=== PATIENT | female | born 1955 | race Native Hawaiian/Other Pacific Islander ===

== ENCOUNTER → 2018-07-27 | Outpatient (CLI) | payer MEDICAID ==
--- NOTE | 2018-07-28 13:53 | MM ---
Reason for exam: screening (asymptomatic). Last mammogram was performed 2 years ago. History: Patient is postmenopausal. Family history of breast cancer in sister at age 39. Physical Findings: A clinical breast exam by your physician is recommended on an annual basis and results should be correlated with mammographic findings. MG Screening Mammo w CAD Bilateral CC and MLO view(s) were taken. Prior study comparison: July 15, 2016, mammogram, performed at [facility]. February 18, 2015, mammogram, performed at [facility]. There are scattered fibroglandular densities. No suspicious abnormality. ASSESSMENT: Negative, BI-RAD 1 RECOMMENDATION: Routine screening mammogram of both breasts in 1 year.
== END ==
LOC: RADMAMWWP 10:30
PROVIDERS: ATTEND Family Medicine
DX: Z12.31 Encounter for screening mammogram for malignant neoplasm of breast (principal)
CPT/HCPCS: 77067

== ENCOUNTER 2019-04-06 22:55 | Emergency (ER) | payer MEDICARE ==
[2019-04-06 23:06] VITALS: TEMP 98.6
--- NOTE | 2019-04-07 00:54 | ED ---
General Adult HPI - General Source: patient Mode of arrival: wheelchair Limitations: no limitations <America Carvajalhan L - Last Filed: 04/07/19 03:47> <Willa Gomez P - Last Filed: 04/07/19 22:15> - General Chief complaint: Extremity Problem,Nontraumatic Stated complaint: Rt leg pain/swelling - History of Present Illness Initial comments: 64-year-old female presenting for multiple complaints. Patient states for years she has had neck pain on and off. She states that about 2 weeks ago she began experiencing sharp left-sided neck pain that occurred with movement of the neck. She states she does not have a headache fever chills night sweats she's not parents nausea vomiting or dizziness. She denies any chest pain or shortness of breath. She states that he was only incited by movement of the neck. Patient denied any radiation down the arms she denied any paresthesia. The extremities or loss of sensation. Patient denies any weakness of the upper or lower extremities. She states that she received 1 cortisone shot by her primary care bite her for this complaint. She states she been taking ibuprofen [id number] for the pain management which doesn't seem to be working. Patient states about a week prior to the onset of neck pain she has been experiencing knee pain she states that she has had chronic knee pain and a previous total knee arthroplasty of the right knee. She states that for the past 3 weeks she has had right knee pain that increases with walking. She states that the most pain that she takes. Suspect complete extension. She states there is pain in the posterior aspect of the knee and she has noticed the knee has been swollen. She denies any redness or warmth to palpation of the joint. She denies any fever or chills or flulike symptoms. Patient states she is able to flex and extend without any significant difficulty with full extension. The most pain. Patient denies any weakness paresthesias numbness tingling of lower extremity. She states it does radiate towards her ankle. Describing this pain as a very sharp sensation. Patient denies history of DVT or pulmonary embolism. Patient states she is a diabetic. Patient denies any history of cancer patient denies any other associated symptoms. Upon arrival patient appears well signs of acute distress she presents emergency department this evening because she was unable to take the persistent pain, denies increase this evening. (Francia Carvajal) - Related Data Home Medications Medication Instructions Recorded Confirmed Citalopram Hydrobromide 40 mg PO 04/06/19 [Citalopram HBr] Lisinopril-Hctz 10-12.5 mg 1 tab PO DAILY 04/06/19 04/06/19 [Zestoretic 10-12.5] Methocarbamol [Robaxin] 04/06/19 Pravastatin Sodium [Pravachol] 10 mg PO DAILY 04/06/19 04/06/19 diphenhydrAMINE [Benadryl] 25 mg PO HS PRN 04/06/19 04/06/19 metFORMIN HCL [Glucophage] 500 mg PO BID 04/06/19 04/06/19 Previous Rx's Medication Instructions Recorded Acetaminophen with Codeine 1 tab PO Q6H PRN 3 Days #12 tab 04/07/19 [Tylenol w/codeine #3] Allergies Allergy/AdvReac Type Severity Reaction Status Date / Time latex Allergy Rash/Hives Verified 04/06/19 23:05 Review of Systems ROS Other: All systems not noted in ROS Statement are negative. <Francia Carvajal - Last Filed: 04/07/19 03:47> ROS Other: All systems not noted in ROS Statement are negative. <Willa Gomez - Last Filed: 04/07/19 22:15> ROS Statement: Those systems with pertinent positive or pertinent negative responses have been documented in the HPI. Past Medical History Past Medical History: Diabetes Mellitus, Hyperlipidemia, Hypertension History of Any Multi-Drug Resistant Organisms: None Reported Past Surgical History: No Surgical Hx Reported Past Psychological History: No Psychological Hx Reported Smoking Status: Former smoker Past Alcohol Use History: None Reported Past Drug Use History: None Reported <Francia Carvajal - Last Filed: 04/07/19 03:47> General Exam Limitations: no limitations <Francia Carvajal - Last Filed: 04/07/19 03:47> - General Exam Comments Initial Comments: General: The patient is awake and alert, in no distress, and does not appear acutely ill. Eye: +3 mm pupils are equal, round and reactive to light, extra-ocular movements are intact. No nystagmus. There is normal conjunctiva bilaterally. No signs of icterus. Ears, nose, mouth and throat: There are moist mucous membranes and no oral lesions. Neck: The neck is supple, there is no tenderness or JVD. No midline tenderness palpation of the cervical spine. Positive Spurling's. Cardiovascular: There is a regular rate and rhythm. No murmur, rub or gallop is appreciated. Respiratory: Lungs are clear to auscultation, respirations are non-labored, breath sounds are equal. No wheezes, stridor, rales, or rhonchi. Gastrointestinal: Soft, non-distended, non-tender abdomen without masses or organomegaly noted. There is no rebound or guarding present. No CVA tenderness. Bowel sounds are unremarkable. Musculoskeletal: Upon inspection of the knees bilaterally or slight soft tissue swelling of the right knee in comparison the left. No warmth to palpation no erythema. Patient is able to flex and extend at the knees bilaterally. Patient admits to discomfort of the right knee with full extension. However extensor mechanism intact. Normal ROM of the cervical spine, ankles b/l. Strength 5/5 of the UE and LE b/l. Sensation intact of the UE and LE. Radial and DP pulses equal bilaterally 2+. Neurological: A&O x 3. CN II-XII intact, There are no obvious motor or sensory deficits. Coordination appears grossly intact. Speech is normal. Skin: Skin is warm and dry and no rashes or lesions are noted. No LE edema. (-) Homans. Psychiatric: Cooperative, appropriate mood & affect, normal judgment. (Francia Carvajal) Course Vital Signs 04/06/19 04/07/19 23:00 03:41 Temperature 98.6 F Pulse Rate 93 70 Respiratory 18 16 Rate Blood Pressure 122/75 138/80 O2 Sat by Pulse 96 Oximetry Medical Decision Making <Francia Carvajal - Last Filed: 04/07/19 03:47> <Willa Gomez - Last Filed: 04/07/19 22:15> - Medical Decision Making 64-year-old female presenting for multiple complaints. Patient has history of chronic neck pain and right knee pain. Patient states she has had the swelling for the past 3 weeks. Patient's pain increased with extension. Chapa cyst on ultrasound. No evidence of DVT. There is no warmth to palpation of the knee or erythema. I do not suspicion for septic joint. Chronic changes of degeneration noted. Cervical spine plain films revealed degenerative changes. Patient is positive Spurling's no weakness of the upper extremities or sensation deficits. At this time feel patient symptoms as far as the neck pain or radicular in nature. Patient denies any falls or trauma. Patient is provided Toradol emergency department. Patient has upcoming appointment scheduled with Dr. Caro for the right knee pain. Patient was provided prescription for Tylenol #3 outpatient for pain management. Thus appropriate use as well as risks involved prior to administration. Patient is agreeable and prefers discharge this time.I discussed case with Dr. Gomez who is agreeable with plan and d/c. Return parameters were discussed at length with patient who verbalized understanding (Francia Carvajal) I was available for consultation in the emergency department. The history and physical exam were done by the midlevel provider. I was consulted for this patient's care. I reviewed the case with the midlevel provider and based on their presentation of the patient, I agree with the assessment, medical decision making and plan of care as documented. Chart was dictated using [employer] dictation software. Attempts were made to correct any dictation errors however some typographical errors may persist. (Willa Gomez) Disposition Is patient prescribed a controlled substance at d/c from ED?: Yes When asked, does pt state using other controlled substances?: No If prescribed controlled substance>3 days was MAPS reviewed?: Prescribed <3 Days If opioid is for acute pain is fill amount 7 days or less?: Yes If Rx opioid, was Start Talking consent form obtained?: Yes Time of Disposition: 03:25 <Francia Carvajal - Last Filed: 04/07/19 03:47> <Willa Gomez - Last Filed: 04/07/19 22:15> Clinical Impression: Arthritis of right knee, Bakers cyst, Cervical spine degeneration, Chronic neck pain Disposition: HOME SELF-CARE Condition: Good Instructions (If sedation given, give patient instructions): Bakers Cyst (ED), Cervical Disc Herniation (ED) Additional Instructions: Please use medication as discussed. Please follow-up with family doctor in the next 2 days, please follow-up with Dr Lizama. Please return to emergency room if the symptoms increase or worsen or for any other concerns. Prescriptions: Acetaminophen with Codeine [Tylenol w/codeine #3] 1 tab PO Q6H PRN 3 Days #12 tab PRN Reason: Severe Pain Referrals: Kat Fox MD [Primary Care Provider] - 1-2 days Deny Caro MD [STAFF PHYSICIAN] - 1-2 days Shasta Valera DO [Doctor of Osteopathic Medicine] - 1-2 days
--- NOTE | 2019-04-07 02:13 | XR ---
EXAM: XR Right Knee, 3 views CLINICAL HISTORY: ITS.REASON XR Reason: Pain TECHNIQUE: Three views of the right knee. COMPARISON: None. FINDINGS: Bones/joints: Suprapatellar joint effusion. Mild tricompartmental arthrosis of the knee with chondrocalcinosis in the lateral tibiofemoral compartment. No acute fracture. No dislocation. Soft tissues: Unremarkable. Vasculature: Vascular calcifications are seen. IMPRESSION: 1. No acute osseous abnormality. 2. Chronic findings as described.
--- NOTE | 2019-04-07 02:17 | XR ---
EXAM: XR Cervical Spine, 4 or 5 Views CLINICAL HISTORY: ITS.REASON XR Reason: Pain TECHNIQUE: Frontal, lateral and oblique views of the cervical spine. COMPARISON: None. FINDINGS: Vertebrae: Unremarkable. No acute fracture. Normal alignment. Disc spaces: Multilevel degenerative change of the cervical spine with mild or moderate osseous foraminal narrowing at C5-C6 and C6-C7. Soft tissues: Unremarkable. IMPRESSION: 1. No acute osseous abnormality identified. However, lateral positioning is suboptimal. If there is clinical concern for cervical spine fracture, evaluation with CT is recommended. 2. Multilevel degenerative change of the cervical spine with mild or moderate osseous foraminal narrowing at C5-C6 and C6-C7.
--- NOTE | 2019-04-07 02:51 | US ---
EXAM: US Duplex Right Lower Extremity Veins CLINICAL HISTORY: ITS.REASON US Reason: posterior knee pain /swelling TECHNIQUE: Real-time duplex ultrasound scan of the right lower extremity veins integrating B-mode two-dimensional vascular structure, Doppler spectral analysis, color flow Doppler imaging and compression. COMPARISON: None. FINDINGS: Deep veins: Unremarkable. No DVT in the visualized common femoral, femoral, proximal deep femoral or popliteal veins. The veins demonstrate normal color flow, are normally compressible, with normal phasic flow and/or augmentation response. Superficial veins: Unremarkable. No thrombus in the visualized great saphenous vein. Soft tissues: Right popliteal fossa 1.3 x 3.2 x 0.5 cm collection is favored to represent a Chapa's cyst. IMPRESSION: 1. No evidence of deep vein thrombosis in the right lower extremity. 2. Right popliteal fossa 1.3 x 3.2 x 0.5 cm collection is favored to represent a Chapa's cyst.
[2019-04-07] MEDS ORDERED: KETOROLAC 30 MG/ML 1 ML VIAL IM STA (03:21)
[2019-04-07] MEDS ORDERED: ACET/COD 300 MG/30 MG STARTER PACK 6 TAB BTL PO STA (03:21)
[2019-04-07 03:46] VITALS: BP 138/80; PULSE 70; RESP 16
== END 2019-04-07 03:41 | disposition home or self-care (01) ==
LOC: EC 22:55
DX: M17.11 Unilateral primary osteoarthritis, right knee (principal); M71.21 Synovial cyst of popliteal space [Baker], right knee; G31.89 Other specified degenerative diseases of nervous system; G89.29 Other chronic pain; M47.892 Other spondylosis, cervical region; E11.9 Type 2 diabetes mellitus without complications; E78.5 Hyperlipidemia, unspecified; I10 Essential (primary) hypertension; Z87.891 Personal history of nicotine dependence; Z79.84 Long term (current) use of oral hypoglycemic drugs; Z79.899 Other long term (current) drug therapy; Z91.040 Latex allergy status
CPT/HCPCS: 72050; 73562; 93971; 99284; 96372; J1885

== ENCOUNTER 2019-04-09 12:00 | Inpatient (IN) | payer MEDICARE ==
[2019-04-09] MEDS ORDERED: ACETAMINOPHEN TAB 500 MG TAB PO STA (13:00)
[2019-04-09] MEDS ORDERED: KETOROLAC 30 MG/ML 1 ML VIAL IVP STA (13:03)
--- NOTE | 2019-04-09 14:06 | ED ---
General Adult HPI - General Chief complaint: Extremity Problem,Nontraumatic Stated complaint: recheck - rt leg pain Time Seen by Provider: 04/09/19 12:44 Source: patient Mode of arrival: wheelchair Limitations: no limitations - History of Present Illness Initial comments: 64-year-old female patient presents to the emergency department today for evaluation of pain to the right knee and right ankle. Patient states she is also having pain to the neck and the left elbow. Patient states that she was seen and evaluated for this here a few days ago, had ultrasound and x-rays and was discharged with negative workup. Patient states that she has been feeling worse and is no longer able to bear weight due to the pain. States the swelling in the right knee and ankle have increased. Patient denies any injury to these locations. Patient states she has been having sweats and chills, denies any known fever. States that the history of diabetes. Denies any history of gout or septic arthritis. Patient denies any recent rash, shortness breath, chest pa in, abdominal pain, nausea, vomiting, diarrhea, constipation, back pain, numbness, tingling, dizziness, weakness, hematuria, dysuria, urinary urgency, urinary frequency, headache, visual changes, or any other complaints. - Related Data Home Medications Medication Instructions Recorded Confirmed Citalopram Hydrobromide 40 mg PO DAILY 04/06/19 04/09/19 [Citalopram HBr] Lisinopril-Hctz 10-12.5 mg 1 tab PO DAILY 04/06/19 04/09/19 [Zestoretic 10-12.5] Methocarbamol [Robaxin] 500 mg PO DAILY PRN 04/06/19 04/09/19 Pravastatin Sodium [Pravachol] 10 mg PO DAILY 04/06/19 04/09/19 diphenhydrAMINE [Benadryl] 25 mg PO HS PRN 04/06/19 04/09/19 metFORMIN HCL [Glucophage] 500 mg PO BID 04/06/19 04/09/19 Ibuprofen [Motrin Ib] 400 mg PO Q6H PRN 04/09/19 04/09/19 Previous Rx's Medication Instructions Recorded Acetaminophen with Codeine 1 tab PO Q6H PRN 3 Days #12 tab 04/07/19 [Tylenol w/codeine #3] Allergies Allergy/AdvReac Type Severity Reaction Status Date / Time latex Allergy Rash/Hives Verified 04/09/19 12:57 Review of Systems ROS Statement: Those systems with pertinent positive or pertinent negative responses have been documented in the HPI. ROS Other: All systems not noted in ROS Statement are negative. Past Medical History Past Medical History: Diabetes Mellitus, Hyperlipidemia, Hypertension History of Any Multi-Drug Resistant Organisms: None Reported Past Surgical History: No Surgical Hx Reported Past Psychological History: No Psychological Hx Reported Smoking Status: Former smoker Past Alcohol Use History: None Reported Past Drug Use History: None Reported General Exam Limitations: no limitations General appearance: alert, in no apparent distress, other (Physical well- developed, well-nourished elderly female patient in no acute distress. Vital signs upon presentation are temperature 100.2F oral, pulse 111, respirations 1 8, blood pressure 127/72, pulse ox 97% on room air.) Eye exam: Present: normal appearance, PERRL, EOMI. Absent: scleral icterus, conjunctival injection, periorbital swelling ENT exam: Present: normal exam, normal oropharynx, mucous membranes moist Respiratory exam: Present: normal lung sounds bilaterally. Absent: respiratory distress, wheezes, rales, rhonchi, stridor Cardiovascular Exam: Present: regular rate, normal rhythm, normal heart sounds. Absent: systolic murmur, diastolic murmur, rubs, gallop, clicks GI/Abdominal exam: Present: soft, normal bowel sounds. Absent: distended, tenderness, guarding, rebound, rigid Extremities exam: Present: full ROM, normal capillary refill, other (There is swelling noted on the right knee and the right ankle. No erythema. Joints are warm to touch. Skin is otherwise pink, warm, dry. Cap refills less than 3 seconds. Pedal and posttibial pulses are 2+ and equal bilaterally.). Absent: normal inspection, tenderness, pedal edema, joint swelling, calf tenderness Neurological exam: Present: alert, oriented X3, CN II-XII intact Psychiatric exam: Present: normal affect, normal mood Skin exam: Present: warm, dry, intact, normal color. Absent: rash Course Vital Signs 04/09/19 04/09/19 04/09/19 12:21 13:01 15:00 Temperature 99.9 F H 100.2 F H 99.3 F Pulse Rate 111 H 82 Respiratory 18 18 Rate Blood Pressure 127/72 121/70 O2 Sat by Pulse 97 99 Oximetry 04/09/19 16:00 Temperature Pulse Rate 86 Respiratory 18 Rate Blood Pressure 131/56 O2 Sat by Pulse 96 Oximetry Medical Decision Making - Medical Decision Making 64-year-old female patient presented to the emergency department today for evaluation of migrating arthritis. Patient did have evaluation for right knee and right ankle pain a few days ago, had negative ultrasound and x-rays. Upon arrival she did have low-grade fever. Physical examination did reveal joint swelling noted to the right knee and right ankle with no erythema. Labs reviewed and did reveal a normal white blood cell count with an abnormal peripheral smear. I did speak to the pathologist in the lab who was concerned for acute leukemia particularly CMML. He recommends bone marrow biopsy and oncology consult. Patient will be admitted to the hospital for further evaluation. She is admitted to Dr. Galeana. - Lab Data Result diagrams: 04/09/19 14:05 04/09/19 14:05 Lab Results 04/09/19 04/09/19 04/09/19 Range/Units 14:05 14:05 14:05 WBC 7.7 (3.8-10.6) k/uL RBC 3.33 L (3.80-5.40) m/uL Hgb 10.4 L (11.4-16.0) gm/dL Hct 31.2 L (34.0-46.0) % MCV 93.7 (80.0-100.0) fL MCH 31.2 (25.0-35.0) pg MCHC 33.3 (31.0-37.0) g/dL RDW 15.7 H (11.5-15.5) % Plt Count 161 (150-450) k/uL Neutrophils % (Manual) 20 % Band Neutrophils % 1 % Lymphocytes % (Manual) 26 % Monocytes % (Manual) 47 % Metamyelocytes % 1 % Myelocytes % 1 % Blast Cells % 7 H* % Neutrophils # (Manual) 1.60 (1.3-7.7) k/uL Lymphocytes # (Manual) 2.00 (1.0-4.8) k/uL Monocytes # (Manual) 3.62 H (0-1.0) k/uL Metamyelocytes # (Man) 0.08 H (0) k/uL Myelocytes # (Manual) 0.08 H (0) k/uL Blast Cells # (Man) 0.54 H (0) k/uL Nucleated RBCs 1 H (0-0) /100 WBC Manual Slide Review Performed Large Platelets Present Poikilocytosis (manual Present Rouleaux Present PT (9.0-12.0) sec INR (<1.2) APTT (22.0-30.0) sec Sodium 138 (137-145) mmol/L Potassium 4.0 (3.5-5.1) mmol/L Chloride 101 (98-107) mmol/L Carbon Dioxide 24 (22-30) mmol/L Anion Gap 13 mmol/L BUN 16 (7-17) mg/dL Creatinine 0.76 (0.52-1.04) mg/dL Est GFR (CKD-EPI)AfAm >90 (>60 ml/min/1.73 sqM) Est GFR (CKD-EPI)NonAf 83 (>60 ml/min/1.73 sqM) Glucose 142 H (74-99) mg/dL Plasma Lactic Acid Myke 0.9 (0.7-2.0) mmol/L Calcium 8.6 (8.4-10.2) mg/dL Total Bilirubin 0.5 (0.2-1.3) mg/dL AST 16 (14-36) U/L ALT 8 L (9-52) U/L Alkaline Phosphatase 108 (38-126) U/L Total Protein 8.3 H (6.3-8.2) g/dL Albumin 4.0 (3.5-5.0) g/dL 04/09/19 Range/Units 14:05 WBC (3.8-10.6) k/uL RBC (3.80-5.40) m/uL Hgb (11.4-16.0) gm/dL Hct (34.0-46.0) % MCV (80.0-100.0) fL MCH (25.0-35.0) pg MCHC (31.0-37.0) g/dL RDW (11.5-15.5) % Plt Count (150-450) k/uL Neutrophils % (Manual) % Band Neutrophils % % Lymphocytes % (Manual) % Monocytes % (Manual) % Metamyelocytes % % Myelocytes % % Blast Cells % % Neutrophils # (Manual) (1.3-7.7) k/uL Lymphocytes # (Manual) (1.0-4.8) k/uL Monocytes # (Manual) (0-1.0) k/uL Metamyelocytes # (Man) (0) k/uL Myelocytes # (Manual) (0) k/uL Blast Cells # (Man) (0) k/uL Nucleated RBCs (0-0) /100 WBC Manual Slide Review Large Platelets Poikilocytosis (manual Rouleaux PT 10.9 (9.0-12.0) sec INR 1.0 (<1.2) APTT 25.8 (22.0-30.0) sec Sodium (137-145) mmol/L Potassium (3.5-5.1) mmol/L Chloride (98-107) mmol/L Carbon Dioxide (22-30) mmol/L Anion Gap mmol/L BUN (7-17) mg/dL Creatinine (0.52-1.04) mg/dL Est GFR (CKD-EPI)AfAm (>60 ml/min/1.73 sqM) Est GFR (CKD-EPI)NonAf (>60 ml/min/1.73 sqM) Glucose (74-99) mg/dL Plasma Lactic Acid Myke (0.7-2.0) mmol/L Calcium (8.4-10.2) mg/dL Total Bilirubin (0.2-1.3) mg/dL AST (14-36) U/L ALT (9-52) U/L Alkaline Phosphatase (38-126) U/L Total Protein (6.3-8.2) g/dL Albumin (3.5-5.0) g/dL Disposition Clinical Impression: Abnormal CBC, Polyarthralgia, Fever Disposition: ADMITTED IP TO THIS [facility] Condition: Serious Referrals: Kat Fox MD [Primary Care Provider] - 1-2 days Decision to Admit Reason: Admit from [facility] Decision Date: 04/09/19 Decision Time: 16:34
[2019-04-09 14:29] LABS: ALT 8 U/L (9-52); AST 16 U/L (14-36); African American GFR (CKD) >90 (>60 ml/min/1.73 sqM); Alkaline Phosphatase 108 U/L (38-126); Anion Gap 13 mmol/L; Blood Urea Nitrogen 16 mg/dL (7-17); Calcium 8.6 mg/dL (8.4-10.2); Carbon Dioxide 24 mmol/L (22-30); Chloride 101 mmol/L (98-107); Glucose 142 mg/dL (74-99); Sodium 138 mmol/L (137-145); Total Bilirubin 0.5 mg/dL (0.2-1.3); Total Protein 8.3 g/dL (6.3-8.2)
[2019-04-09 14:33] LABS: Partial Thromboplastin Time 25.8 sec (22.0-30.0); Prothrombin Time 10.9 sec (9.0-12.0)
[2019-04-09 14:44] LABS: HCT 31.2 % (34.0-46.0); HGB 10.4 gm/dL (11.4-16.0); MCH 31.2 pg (25.0-35.0); MCHC 33.3 g/dL (31.0-37.0); MCV 93.7 fL (80.0-100.0); Mean Platelet Volume 13.4; Platelet Count 161 k/uL (150-450); RBC 3.33 m/uL (3.80-5.40); RDW 15.7 % (11.5-15.5)
[2019-04-09 15:06] LABS: Band Neutrophils % 1 %; Metamyelocytes # (M) 0.08 k/uL (0); Metamyelocytes % 1 %; Myelocytes # (M) 0.08 k/uL (0); Myelocytes % 1 %; Neutrophils % (M) 20 %; Nucleated Red Blood Cells 1 /100 WBC (0-0); Total Cells Counted 200
[2019-04-09 15:07] LABS: Blast Cells # (M) 0.54 k/uL (0); Monocytes # (M) 3.62 k/uL (0-1.0); WBC 7.7 k/uL (3.8-10.6)
[2019-04-09 15:08] LABS: Large Platelets Present; Rouleaux Present
[2019-04-09 15:09] LABS: Poikilocytosis (M) Present
[2019-04-09] MEDS: SODIUM CHLORIDE 0.9% 500 ML 500 ML IV SCH ×2 (15:20→16:00)
[2019-04-09] MEDS ORDERED: HYDROmorphone 0.5 MG/0.5 ML SYRINGE IVP STA (16:24)
[2019-04-09 16:26] LABS: Appearance,Urine Clear (Clear); Bilirubin,Urine Negative (Negative); Blood,Urine Negative (Negative); Color,Urine Yellow; Glucose,Urine (UA) Negative (Negative); Ketones,Urine Negative (Negative); Leukocyte Esterase,Urine Negative (Negative); Nitrite,Urine Negative (Negative); PH, Urine 5.5 (5.0-8.0); Protein,Urine Trace (Negative); Specific Gravity,Urine 1.025 (1.001-1.035)
[2019-04-09] MEDS ORDERED: NALOXONE 0.4 MG/ML 1 ML VIAL IV PRN (16:34)
[2019-04-09] MEDS: HYDROmorphone 0.5 MG/0.5 ML SYRINGE IVP PRN ×2 (19:22→22:33)
[2019-04-10] MEDS: HYDROmorphone 0.5 MG/0.5 ML SYRINGE IVP PRN ×7 (02:36→22:52)
[2019-04-10] MEDS: ACETAMINOPHEN TAB 325 MG TAB PO PRN ×2 (05:50→11:04)
[2019-04-10] MEDS ORDERED: diphenhydrAMINE 25 MG CAP PO PRN (08:24)
[2019-04-10] MEDS ORDERED: IBUPROFEN 400 MG TAB PO PRN (08:24)
--- NOTE | 2019-04-10 08:59 | XR ---
EXAMINATION TYPE: XR chest 2V DATE OF EXAM: 04/10/2019 COMPARISON: NONE TECHNIQUE: PA and lateral views submitted. HISTORY: Cough possible pneumonia FINDINGS: The lungs are clear and there is no pneumothorax, pleural effusion, or focal pneumonia. Hypertrophi c and degenerative changes spine. Atherosclerotic change aorta. Arthropathy of the shoulders. No over t failure. IMPRESSION: 1. No acute process.
[2019-04-10] MEDS: CITALOPRAM HYDROBROMIDE 20 MG TAB PO SCH (09:42)
[2019-04-10] MEDS: LISINOPRIL-HCTZ 10-12.5 MG 1 EACH TAB PO SCH (09:42)
[2019-04-10] MEDS: PRAVASTATIN SODIUM 20 MG TAB PO SCH (09:42)
[2019-04-10] MEDS: metFORMIN 500 MG TAB PO SCH ×2 (09:43→17:05)
--- NOTE | 2019-04-10 10:08 | P.HPIM ---
History of Present Illness H&P Date: 04/10/19 This is a 64-year-old female patient of Dr. Fox. Patient presented for evaluation of pain to right knee and right ankle along with pain to neck. Patient reports that this has been occurring over the past week. Patient reports that started with her knee in which she reported increased swelling and then moved Dr. ankle. Patient reports that she received outpatient injections. Pain did subside but then started in her neck in which she also received injections to her neck with improvement. But now the pain has returned back to her knee and she is unable to ambulate. Patient has past medical history of diabetes mellitus, hyperlipidemia and hypertension. Patient's temp also elevated on admit 100.2. CBC completed revealing critically high blast cells 7. Hematology consult has been placed. Chest x-ray completed showing no acute process. This time patient is resting comfortably in bed. Patient denies any fevers at home. Patient denies any chest pain shortness breath. Patient denies any nausea vomiting or diarrhea. Patient denies any urinary burning or frequency. Review of Systems please refer to HPI otherwise unremarkable Past Medical History Past Medical History: Diabetes Mellitus, Hyperlipidemia, Hypertension History of Any Multi-Drug Resistant Organisms: None Reported Past Surgical History: No Surgical Hx Reported Past Psychological History: No Psychological Hx Reported Smoking Status: Never smoker Past Alcohol Use History: None Reported Past Drug Use History: None Reported Medications and Allergies Home Medications Medication Instructions Recorded Confirmed Type Citalopram Hydrobromide 40 mg PO DAILY 04/06/19 04/09/19 History [Citalopram HBr] Lisinopril-Hctz 10-12.5 mg 1 tab PO DAILY 04/06/19 04/09/19 History [Zestoretic 10-12.5] Methocarbamol [Robaxin] 500 mg PO DAILY PRN 04/06/19 04/09/19 History Pravastatin Sodium [Pravachol] 10 mg PO DAILY 04/06/19 04/09/19 History diphenhydrAMINE [Benadryl] 25 mg PO HS PRN 04/06/19 04/09/19 History metFORMIN HCL [Glucophage] 500 mg PO BID 04/06/19 04/09/19 History Acetaminophen with Codeine 1 tab PO Q6H PRN 3 Days #12 tab 04/07/19 04/09/19 Rx [Tylenol w/codeine #3] Ibuprofen [Motrin Ib] 400 mg PO Q6H PRN 04/09/19 04/09/19 History Allergies Allergy/AdvReac Type Severity Reaction Status Date / Time latex Allergy Rash/Hives Verified 04/09/19 12:57 Physical Exam Vitals: Vital Signs Temp Pulse Pulse Resp BP BP BP 04/10/19 06:43 98.8 F 58 L 16 122/67 04/09/19 21:03 98.0 F 84 14 115/71 04/09/19 18:12 98.2 F 88 16 104/70 04/09/19 17:40 98.7 F 86 18 120/67 04/09/19 16:00 86 18 131/56 04/09/19 15:00 99.3 F 82 18 121/70 04/09/19 13:01 100.2 F H 04/09/19 12:21 99.9 F H 111 H 18 127/72 Pulse Ox 04/10/19 06:43 95 04/09/19 21:03 97 04/09/19 18:12 97 04/09/19 17:40 96 04/09/19 16:00 96 04/09/19 15:00 99 04/09/19 13:01 04/09/19 12:21 97 Intake and Output 04/09/19 04/10/19 04/10/19 22:59 06:59 14:59 Other: # Voids 1 1 Head normocephalic Neck supple Lungs clear to auscultation bilaterally no wheezing or crackles Heart regular rate and rhythm S1-S2, no rub or gallop Abdomen is soft nontender nondistended positive bowel sounds no hepatosplenomegaly Extremities minimal swelling noted to right knee Neuro alert and orientated to 3 Results CBC & Chem 7: 04/09/19 14:05 04/09/19 14:05 Labs: Abnormal Lab Results - Last 24 Hours (Table) 04/09/19 04/09/19 04/09/19 Range/Units 14:05 14:05 16:14 RBC 3.33 L (3.80-5.40) m/uL Hgb 10.4 L (11.4-16.0) gm/dL Hct 31.2 L (34.0-46.0) % RDW 15.7 H (11.5-15.5) % Blast Cells % 7 H* % Monocytes # (Manual) 3.62 H (0-1.0) k/uL Metamyelocytes # (Man) 0.08 H (0) k/uL Myelocytes # (Manual) 0.08 H (0) k/uL Blast Cells # (Man) 0.54 H (0) k/uL Nucleated RBCs 1 H (0-0) /100 WBC Pathologist Review See comment A Glucose 142 H (74-99) mg/dL ALT 8 L (9-52) U/L Total Protein 8.3 H (6.3-8.2) g/dL Urine Protein Trace H (Negative) Microbiology - Last 24 Hours (Table) 04/09/19 16:14 Urine Culture - Preliminary Urine,Voided Thrombosis Risk Factor Assmnt - Choose All That Apply Any of the Below Risk Factors Present?: Yes Each Factor Represents 1 point: Obesity (BMI >25) Other Risk Factors: Yes Each Risk Factor Represents 2 Points: Age 61-74 years Thrombosis Risk Factor Assessment Total Risk Factor Score: 3 Thrombosis Risk Factor Assessment Level: Moderate Risk Assessment and Plan Assessment: 1. Polyarthralgia of the right knee, right ankle and neck with fever. X-ray of knee completed on 04/07/2019 showing no acute osseous abnormality chronic findings as described. Venous Doppler completed on 04/07/2029 showing no evidence for deep vein thrombosis in the right lower extremity. 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 Cervical spine x-ray completed showing no a cute osseous abnormality identified. However lateral positioning is suboptimal. Multilevel degenerative change of the cervical spine with mild to moderate osseous foraminal narrowing of C5 to C6 and C6 to C7. Chest x-ray completed showing no acute process. Blood and urine cultures ordered. 2. Abnormal CBC. Blast cells critically high at 7. Hematology has been consulted for further workup 3. History of diabetes mellitus. Home meds resumed 4. History of hyperlipidemia 5. History of essential hypertension DT prophylaxis heparin. GI prophylaxis Protonix Time with Patient: Greater than 30 (I performed an examination of the patient and discussed their management with the Nurse Practitioner. I have reviewed the Nurse Practitioner's notes and agree with the documented findings and plan of care. Still for 20)
[2019-04-10 12:01] LABS: ALT 10 U/L (9-52); AST 16 U/L (14-36); African American GFR (CKD) >90 (>60 ml/min/1.73 sqM); Alkaline Phosphatase 99 U/L (38-126); Anion Gap 10 mmol/L; Blood Urea Nitrogen 14 mg/dL (7-17); Calcium 8.8 mg/dL (8.4-10.2); Carbon Dioxide 29 mmol/L (22-30); Chloride 100 mmol/L (98-107); Glucose 118 mg/dL (74-99); Potassium 4.4 mmol/L (3.5-5.1); Sodium 139 mmol/L (137-145); Total Bilirubin 0.4 mg/dL (0.2-1.3); Total Protein 8.3 g/dL (6.3-8.2)
[2019-04-10 12:11] LABS: HCT 32.7 % (34.0-46.0); HGB 10.7 gm/dL (11.4-16.0); MCH 31.5 pg (25.0-35.0); MCHC 32.8 g/dL (31.0-37.0); MCV 96.1 fL (80.0-100.0); Platelet Count 137 k/uL (150-450); WBC 6.8 k/uL (3.8-10.6)
--- NOTE | 2019-04-10 13:03 | P.CONS ---
History of Present Illness - Reason for Consult Consult date: 04/10/19 blasts in peripheral smear Requesting physician: Katelyn Trevino - Chief Complaint right ankle, knee and neck pain - History of Present Illness Mrs. Hernandez is a very pleasant lady who we've been asked to see because on routine blood draw she was found to have blasts on her peripheral smear. What led to the workup was progressive pain and swelling in her right ankle, right knee, both shoulders and neck. This started about 2 weeks ago, she has been seen in the ER twice with some acute relief of symptoms but nothing permanent. Patient denies any personal history of cancer, she states that she was told that she has a "high white blood cell count", present for several years that she can remember, denies any further knowledge than this about it, her mother had breast cancer and rectal cancer, both treated, her mother at the age of 83, patient denies any fevers, sweats, chills, fluctuating weight, denies unintentional, significant weight loss, difficulty in swallowing, loss of appetite, changes in breathing, bowel or bladder habits, she has otherwise been in her normal state of health, active, taking care of 2 grandkids, until this pain decreased her mobility. Review of Systems 14 point review of systems is negative except as stated in HPI Past Medical History Past Medical History: Diabetes Mellitus, Hyperlipidemia, Hypertension History of Any Multi-Drug Resistant Organisms: None Reported Past Surgical History: No Surgical Hx Reported Past Psychological History: No Psychological Hx Reported Smoking Status: Former smoker Past Alcohol Use History: None Reported Past Drug Use History: None Reported - Past Family History Mother Family Medical History: Cancer (breast and rectal-did not from cancer) Medications and Allergies Home Medications Medication Instructions Recorded Confirmed Type Citalopram Hydrobromide 40 mg PO DAILY 04/06/19 04/09/19 History [Citalopram HBr] Lisinopril-Hctz 10-12.5 mg 1 tab PO DAILY 04/06/19 04/09/19 History [Zestoretic 10-12.5] Methocarbamol [Robaxin] 500 mg PO DAILY PRN 04/06/19 04/09/19 History Pravastatin Sodium [Pravachol] 10 mg PO DAILY 04/06/19 04/09/19 History diphenhydrAMINE [Benadryl] 25 mg PO HS PRN 04/06/19 04/09/19 History metFORMIN HCL [Glucophage] 500 mg PO BID 04/06/19 04/09/19 History Acetaminophen with Codeine 1 tab PO Q6H PRN 3 Days #12 tab 04/07/19 04/09/19 Rx [Tylenol w/codeine #3] Ibuprofen [Motrin Ib] 400 mg PO Q6H PRN 04/09/19 04/09/19 History Allergies Allergy/AdvReac Type Severity Reaction Status Date / Time latex Allergy Rash/Hives Verified 04/09/19 12:57 Physical Exam Vitals: Vital Signs Temp Pulse Pulse Resp BP BP BP 04/10/19 06:43 98.8 F 58 L 16 122/67 04/09/19 21:03 98.0 F 84 14 115/71 04/09/19 18:12 98.2 F 88 16 104/70 04/09/19 17:40 98.7 F 86 18 120/67 04/09/19 16:00 86 18 131/56 04/09/19 15:00 99.3 F 82 18 121/70 04/09/19 13:01 100.2 F H Pulse Ox 04/10/19 06:43 95 04/09/19 21:03 97 04/09/19 18:12 97 04/09/19 17:40 96 04/09/19 16:00 96 04/09/19 15:00 99 04/09/19 13:01 Intake and Output 04/09/19 04/10/19 04/10/19 22:59 06:59 14:59 Other: # Voids 1 1 - Constitutional General appearance: cooperative, no acute distress, obese - EENT Eyes: anicteric sclerae, EOMI, normal appearance ENT: hearing grossly normal, normal oropharynx - Neck Neck: no lymphadenopathy - Respiratory Respiratory: bilateral: CTA - Cardiovascular Rhythm: regular Heart sounds: normal: S1, S2 Abnormal Heart Sounds: no systolic murmur, no diastolic murmur, no rub, no S3 Gallop, no S4 Gallop, no click, no other leg Peripheral Edema: bilateral: None - Gastrointestinal General gastrointestinal: no absent bowel sounds, no decreased bowel sounds, no distended, no hepatomegaly, no hyperactive bowel sounds, normal bowel sounds, no organomegaly, no rigid, no scaphoid, soft, no splenomegaly, no tenderness, no umbilical hernia, no ventral hernia - Neurologic Neurologic: CNII-XII intact - Musculoskeletal Musculoskeletal: strength equal bilaterally - Psychiatric Psychiatric: A&O x's 3, appropriate affect, intact judgment & insight Results CBC & Chem 7: 04/10/19 11:15 04/10/19 11:15 Labs: Abnormal Lab Results - Last 24 Hours (Table) 04/09/19 04/09/19 04/09/19 Range/Units 14:05 14:05 16:14 RBC 3.33 L (3.80-5.40) m/uL Hgb 10.4 L (11.4-16.0) gm/dL Hct 31.2 L (34.0-46.0) % RDW 15.7 H (11.5-15.5) % Plt Count (150-450) k/uL Blast Cells % 7 H* % Monocytes # (Manual) 3.62 H (0-1.0) k/uL Metamyelocytes # (Man) 0.08 H (0) k/uL Myelocytes # (Manual) 0.08 H (0) k/uL Blast Cells # (Man) 0.54 H (0) k/uL Nucleated RBCs 1 H (0-0) /100 WBC Pathologist Review See comment A Glucose 142 H (74-99) mg/dL ALT 8 L (9-52) U/L Total Protein 8.3 H (6.3-8.2) g/dL Urine Protein Trace H (Negative) 04/10/19 04/10/19 Range/Units 11:15 11:15 RBC 3.40 L (3.80-5.40) m/uL Hgb 10.7 L (11.4-16.0) gm/dL Hct 32.7 L (34.0-46.0) % RDW 16.0 H (11.5-15.5) % Plt Count 137 L (150-450) k/uL Blast Cells % % Monocytes # (Manual) (0-1.0) k/uL Metamyelocytes # (Man) (0) k/uL Myelocytes # (Manual) (0) k/uL Blast Cells # (Man) (0) k/uL Nucleated RBCs (0-0) /100 WBC Pathologist Review Glucose 118 H (74-99) mg/dL ALT (9-52) U/L Total Protein 8.3 H (6.3-8.2) g/dL Urine Protein (Negative) Microbiology - Last 24 Hours (Table) 04/09/19 16:14 Urine Culture - Preliminary Urine,Voided Chest x-ray: report reviewed Assessment and Plan (1) Abnormal CBC Narrative/Plan: Review her concerns with Mrs. Hernandez. Flow cytometry has been ordered to confirm the presence of blasts on the peripheral smear. Once that has been confirmed, plan would be for a bone marrow biopsy and aspirate. Discussed with the patient, she is agreeable to move forward. Patient is wanting very much to be discharged. I told her that she could be from a Hematology standpoint she could. Bone marrow can be scheduled in the outpatient setting, if necessary. I explained to her though, joint pain and swelling certainly needs to be addressed, as that is her presenting complaint, and what is causing her immobility. Current Visit: Yes Status: Acute Priority: High Code(s): R79.89 - OTHER SPECIFIED ABNORMAL FINDINGS OF BLOOD CHEMISTRY SNOMED Code(s): 842177635
--- NOTE | 2019-04-10 13:54 | P.CONS ---
History of Present Illness - Reason for Consult Consult date: 04/10/19 right knee and right ankle pain and swelling Requesting physician: Chris Galeana - Chief Complaint right knee and right ankle pain and swelling x 2-3 weeks - History of Present Illness Patient presented to the emergency room on April 09 with right knee pain and right ankle pain with inability to bear weight on either on the right leg. Patient states that she has swelling in both the right knee and right ankle which has progressed. These symptoms started 2-3 weeks ago and have progressively worsened to the point where patient cannot bear weight on the right leg and cannot walk. Patient has known osteoarthritis in the knee. Pt has been to orthopedic 20 years ago and received injections in the knee but until recently did not have any issues. Pt states that her right ankle was put in "a cast" for 8 weeks years ago by an orthopedic but denies any injury at that time. Pt denies any injury recently. Patient also mentions that she has had left elbow pain which started around the same time as the right knee and ankle issues, about 2-3 weeks ago. Patient has pain with movement but denies any swelling. Patient admits to neck pain on the left side. Patient also feels this started about 2-3 weeks ago as well. Review of Systems Musculoskeletal: right: ankle pain, ankle swelling, knee pain, knee swelling, left: elbow pain Past Medical History Past Medical History: Diabetes Mellitus, Hyperlipidemia, Hypertension History of Any Multi-Drug Resistant Organisms: None Reported Past Surgical History: No Surgical Hx Reported Past Psychological History: No Psychological Hx Reported Smoking Status: Former smoker Past Alcohol Use History: None Reported Past Drug Use History: None Reported - Past Family History Mother Family Medical History: Cancer (breast and rectal-did not from cancer) Medications and Allergies Home Medications Medication Instructions Recorded Confirmed Type Citalopram Hydrobromide 40 mg PO DAILY 04/06/19 04/09/19 History [Citalopram HBr] Lisinopril-Hctz 10-12.5 mg 1 tab PO DAILY 04/06/19 04/09/19 History [Zestoretic 10-12.5] Methocarbamol [Robaxin] 500 mg PO DAILY PRN 04/06/19 04/09/19 History Pravastatin Sodium [Pravachol] 10 mg PO DAILY 04/06/19 04/09/19 History diphenhydrAMINE [Benadryl] 25 mg PO HS PRN 04/06/19 04/09/19 History metFORMIN HCL [Glucophage] 500 mg PO BID 04/06/19 04/09/19 History Acetaminophen with Codeine 1 tab PO Q6H PRN 3 Days #12 tab 04/07/19 04/09/19 Rx [Tylenol w/codeine #3] Ibuprofen [Motrin Ib] 400 mg PO Q6H PRN 04/09/19 04/09/19 History Allergies Allergy/AdvReac Type Severity Reaction Status Date / Time latex Allergy Rash/Hives Verified 04/09/19 12:57 Physical Exam Vitals: Vital Signs Temp Pulse Pulse Resp BP BP BP 04/10/19 06:43 98.8 F 58 L 16 122/67 04/09/19 21:03 98.0 F 84 14 115/71 04/09/19 18:12 98.2 F 88 16 104/70 04/09/19 17:40 98.7 F 86 18 120/67 04/09/19 16:00 86 18 131/56 04/09/19 15:00 99.3 F 82 18 121/70 Pulse Ox 04/10/19 06:43 95 04/09/19 21:03 97 04/09/19 18:12 97 04/09/19 17:40 96 04/09/19 16:00 96 04/09/19 15:00 99 Intake and Output 04/09/19 04/10/19 04/10/19 22:59 06:59 14:59 Other: # Voids 1 1 On physical exam, patient has right suprapatellar bursa effusion which is warm, pain with ROM of the right knee. Left knee mild tender, no effusion. Right ankle - lateral aspect mild swelling, tender to palpation, exam of foot normal. Left ankle mild tenderness, no swelling, left foot normal. Left elbow pain with ROM, no swelling or tenderness, rt elbow normal. Lungs CTA. Heart RRR. Abdomen soft, non/tender. No eruptions on exam. No LAD. Results CBC & Chem 7: 04/10/19 11:15 04/10/19 11:15 Labs: Abnormal Lab Results - Last 24 Hours (Table) 04/09/19 04/09/19 04/09/19 Range/Units 14:05 14:05 16:14 RBC 3.33 L (3.80-5.40) m/uL Hgb 10.4 L (11.4-16.0) gm/dL Hct 31.2 L (34.0-46.0) % RDW 15.7 H (11.5-15.5) % Plt Count (150-450) k/uL Blast Cells % 7 H* % Monocytes # (Manual) 3.62 H (0-1.0) k/uL Metamyelocytes # (Man) 0.08 H (0) k/uL Myelocytes # (Manual) 0.08 H (0) k/uL Blast Cells # (Man) 0.54 H (0) k/uL Nucleated RBCs 1 H (0-0) /100 WBC Pathologist Review See comment A Glucose 142 H (74-99) mg/dL ALT 8 L (9-52) U/L Total Protein 8.3 H (6.3-8.2) g/dL Urine Protein Trace H (Negative) 04/10/19 04/10/19 Range/Units 11:15 11:15 RBC 3.40 L (3.80-5.40) m/uL Hgb 10.7 L (11.4-16.0) gm/dL Hct 32.7 L (34.0-46.0) % RDW 16.0 H (11.5-15.5) % Plt Count 137 L (150-450) k/uL Blast Cells % % Monocytes # (Manual) (0-1.0) k/uL Metamyelocytes # (Man) (0) k/uL Myelocytes # (Manual) (0) k/uL Blast Cells # (Man) (0) k/uL Nucleated RBCs (0-0) /100 WBC Pathologist Review Glucose 118 H (74-99) mg/dL ALT (9-52) U/L Total Protein 8.3 H (6.3-8.2) g/dL Urine Protein (Negative) Microbiology - Last 24 Hours (Table) 04/09/19 16:14 Urine Culture - Preliminary Urine,Voided Assessment and Plan Assessment: Today I will order basic connective tissue disease panel to evaluate patient's symptoms, including RF, CCP, ESR, CRP, WILD, [id number]. Pt will be evaluated by hematology for abnormal CBC. There is some suspicion for inflammatory arthritis given patient's sudden symptoms and will discuss with patient on outpatient basis as rheumatological labs take some time to come back. Patient symptoms may be related to osteoarthritis which may be treated on outpatient basis as well and patient may need to see orthopedist as outpatient. Steroids should be avoided for patient given DM. Pt will follow up regarding labs and further plan of care with us on outpatient basis. Discussed today's assessment and plan with Dr. Barksdale. 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
[2019-04-10 13:59] LABS: Band Neutrophils % 1 %; Blast Cells # (M) 0.61 k/uL (0); Monocytes # (M) 3.47 k/uL (0-1.0); Neutrophils % (M) 17 %; Nucleated Red Blood Cells 0 /100 WBC (0-0); Total Cells Counted 100
[2019-04-10 14:01] LABS: Large Platelets Present; Rouleaux Present
[2019-04-10 16:28] LABS: Uric Acid 5.7 mg/dL (3.7-7.4)
[2019-04-10 16:41] LABS: C Reactive Protein 227.9 mg/L (<10.0)
[2019-04-10] MEDS: Acetaminophen-Codeine 300-30mg TAB PO PRN (17:07)
[2019-04-10] MEDS: HEPARIN SODIUM,PORCINE 5,000 UNIT/ML 1 ML VIAL SQ SCH (19:11)
--- NOTE | 2019-04-10 22:56 | P.CONS ---
History of Present Illness - Reason for Consult Consult date: 04/10/19 Fever and question cellulitis Requesting physician: Chris Galeana - Chief Complaint Right knee and ankle pain 2 week - History of Present Illness Patient is a 64 year female has been complaining of pain to the right knee and ankle area that has been going on for about 2 weeks , patient denies any history of trauma or fall and has been mostly in the knee and ankle area described the pain to be more of a dull aching pain that has gradually increased in intensity to be almost 8 out of 10 and no radiation some associated swelling and redness patient says she has been evaluated Her primary care physician she was given a shot of steroids without any significant improvement subsequently the patient did presented to [facility] ER on 04/14/2019 at that point the patient did have x-rays of the new tissue some degenerative changes she also have Doppler ultrasound was negative for DVT, 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, patient did received a stronger dose of steroid per patient and did have some improvement in her pain temporarily for a day or 2 with the pain coming back to the point that she has hard time walking and bearing any weight on her right leg area patient presented back to the [facility] ER for further evaluation of the same on arrival to the patient did have low-grade fever of 99.9 to 100 0.2F patient did have blood cultures obtained she has been admitted hospital rheumatology has been consulted in addition infectious disease recommendation regarding antibiotic therapy Review of Systems Positive points has been mentioned in HPI. Rest of the systems are negative Past Medical History Past Medical History: Diabetes Mellitus, Hyperlipidemia, Hypertension History of Any Multi-Drug Resistant Organisms: None Reported Past Surgical History: No Surgical Hx Reported Past Psychological History: No Psychological Hx Reported Smoking Status: Never smoker Past Alcohol Use History: None Reported Past Drug Use History: None Reported - Past Family History Mother Family Medical History: Cancer (breast and rectal-did not from cancer) Medications and Allergies Home Medications Medication Instructions Recorded Confirmed Type Citalopram Hydrobromide 40 mg PO DAILY 04/06/19 04/09/19 History [Citalopram HBr] Lisinopril-Hctz 10-12.5 mg 1 tab PO DAILY 04/06/19 04/09/19 History [Zestoretic 10-12.5] Methocarbamol [Robaxin] 500 mg PO DAILY PRN 04/06/19 04/09/19 History Pravastatin Sodium [Pravachol] 10 mg PO DAILY 04/06/19 04/09/19 History diphenhydrAMINE [Benadryl] 25 mg PO HS PRN 04/06/19 04/09/19 History metFORMIN HCL [Glucophage] 500 mg PO BID 04/06/19 04/09/19 History Acetaminophen with Codeine 1 tab PO Q6H PRN 3 Days #12 tab 04/07/19 04/09/19 Rx [Tylenol w/codeine #3] Ibuprofen [Motrin Ib] 400 mg PO Q6H PRN 04/09/19 04/09/19 History Allergies Allergy/AdvReac Type Severity Reaction Status Date / Time latex Allergy Rash/Hives Verified 04/09/19 12:57 Physical Exam Vitals: Vital Signs Temp Pulse Pulse Resp BP BP BP 04/10/19 06:43 98.8 F 58 L 16 122/67 04/09/19 21:03 98.0 F 84 14 115/71 04/09/19 18:12 98.2 F 88 16 104/70 04/09/19 17:40 98.7 F 86 18 120/67 04/09/19 16:00 86 18 131/56 04/09/19 15:00 99.3 F 82 18 121/70 04/09/19 13:01 100.2 F H 04/09/19 12:21 99.9 F H 111 H 18 127/72 Pulse Ox 04/10/19 06:43 95 04/09/19 21:03 97 04/09/19 18:12 97 04/09/19 17:40 96 04/09/19 16:00 96 04/09/19 15:00 99 04/09/19 13:01 04/09/19 12:21 97 Intake and Output 04/09/19 04/10/19 04/10/19 22:59 06:59 14:59 Other: # Voids 1 1 GENERAL DESCRIPTION: An elderly female lying in bed, no distress. No tachypnea or accessory muscle of respiration use. HEENT: Shows Pallor , no scleral icterus. Oral mucous membrane is dry. No pharyngeal erythema or thrush NECK: Trachea central, no thyromegaly. LUNGS: Unlabored breathing. Clear to auscultation anteriorly. No wheeze or crackle. HEART: S1, S2, regular rate and rhythm. No loud murmur ABDOMEN: Soft, no tenderness , guarding or rigidity, no organomegaly EXTREMITIES: No edema of feet. Right ankle with a minimal swelling on the lateral side no significant warmth slight tenderness on the heel area wound or any drainage SKIN: No rash, no masses palpable. NEUROLOGICAL: The patient is awake, alert, oriented x3, mood and affect normal Results CBC & Chem 7: 04/10/19 11:15 04/10/19 11:15 Labs: Abnormal Lab Results - Last 24 Hours (Table) 04/09/19 04/09/19 04/09/19 Range/Units 14:05 14:05 16:14 RBC 3.33 L (3.80-5.40) m/uL Hgb 10.4 L (11.4-16.0) gm/dL Hct 31.2 L (34.0-46.0) % RDW 15.7 H (11.5-15.5) % Blast Cells % 7 H* % Monocytes # (Manual) 3.62 H (0-1.0) k/uL Metamyelocytes # (Man) 0.08 H (0) k/uL Myelocytes # (Manual) 0.08 H (0) k/uL Blast Cells # (Man) 0.54 H (0) k/uL Nucleated RBCs 1 H (0-0) /100 WBC Pathologist Review See comment A Glucose 142 H (74-99) mg/dL ALT 8 L (9-52) U/L Total Protein 8.3 H (6.3-8.2) g/dL Urine Protein Trace H (Negative) Microbiology - Last 24 Hours (Table) 04/09/19 16:14 Urine Culture - Preliminary Urine,Voided Assessment and Plan Assessment: 1-patient has been present hospital predominantly pain to the right knee and the right ankle area to been going on for 2 weeks with no history of any trauma in this patient currently did have some low-grade fever on presentation the subsequently no fever has been recorded no definite cellulitis was noticed, or any open wound with concern for possible rheumatological cause for her pain rather than infectious etiology as the patient currently does not look toxic and did not have any elevated white count Plan: 1-we will obtain x-rays of the right ankle area to complete the workup 2- obtain a sed rate and CRP 3-empirically add Rocephin 1 g daily while waiting for the culture finalized and condition stabilized we will follow up on clinical condition and cultures to further adjust medication if needed Thank you for this consultation will follow this patient along with you Time with Patient: Greater than 30
[2019-04-11 00:36] LABS: Cyclic Citrull Pep IgG Unit 1.7 U/mL; Cyclic Citrullinated Pep IgG NEGATIVE (NEGATIVE)
[2019-04-11] MEDS: HYDROmorphone 0.5 MG/0.5 ML SYRINGE IVP PRN ×5 (01:43→21:40)
[2019-04-11] MEDS: Acetaminophen-Codeine 300-30mg TAB PO PRN (04:33)
[2019-04-11] MEDS: metFORMIN 500 MG TAB PO SCH ×2 (07:52→15:35)
[2019-04-11] MEDS: PRAVASTATIN SODIUM 20 MG TAB PO SCH (07:52)
[2019-04-11] MEDS: PANTOPRAZOLE 40 MG TABLET PO SCH (07:52)
[2019-04-11] MEDS: CITALOPRAM HYDROBROMIDE 20 MG TAB PO SCH (07:52)
[2019-04-11] MEDS: LISINOPRIL-HCTZ 10-12.5 MG 1 EACH TAB PO SCH (07:53)
[2019-04-11] MEDS: HEPARIN SODIUM,PORCINE 5,000 UNIT/ML 1 ML VIAL SQ SCH ×2 (07:53→21:44)
[2019-04-11 08:34] LABS: Angiotensin-1 Converting Enz. 9 U/L (8-52)
--- NOTE | 2019-04-11 09:49 | XR ---
Right ankle HISTORY: Ankle pain 3 views of the right ankle There is soft tissue swelling present. Bone mineralization is reduced. Alignment and joint spaces are maintained. Small ossific density distal to the medial malleolus is well-corticated and not felt lik fam to be acute. There is a plantar calcaneal spur. Spurring is present at the tibiotalar joint. IMPRESSION: Osteoarthritis, soft tissue swelling, osteopenia, plantar calcaneal spur, evidence of rem ote trauma.
[2019-04-11 10:15] LABS: HCT 28.8 % (34.0-46.0); HGB 9.5 gm/dL (11.4-16.0); MCH 31.2 pg (25.0-35.0); MCHC 32.8 g/dL (31.0-37.0); MCV 94.9 fL (80.0-100.0); Mean Platelet Volume 14.1; Platelet Count 143 k/uL (150-450); RBC 3.03 m/uL (3.80-5.40); RDW 15.9 % (11.5-15.5); WBC 6.7 k/uL (3.8-10.6)
[2019-04-11] MEDS: HYDROcodone/APAP 7.5-325MG 1 EACH TAB PO PRN ×2 (10:47→17:18)
[2019-04-11] MEDS: METHOCARBAMOL 500 MG TAB PO PRN (10:49)
[2019-04-11 10:50] LABS: ALT 15 U/L (9-52); AST 14 U/L (14-36); African American GFR (CKD) >90 (>60 ml/min/1.73 sqM); Albumin 3.5 g/dL (3.5-5.0); Alkaline Phosphatase 95 U/L (38-126); Anion Gap 8 mmol/L; Blood Urea Nitrogen 10 mg/dL (7-17); Calcium 8.6 mg/dL (8.4-10.2); Carbon Dioxide 30 mmol/L (22-30); Chloride 99 mmol/L (98-107); Glucose 155 mg/dL (74-99); Potassium 3.9 mmol/L (3.5-5.1); Sodium 137 mmol/L (137-145); Total Bilirubin 0.4 mg/dL (0.2-1.3); Total Protein 7.5 g/dL (6.3-8.2)
--- NOTE | 2019-04-11 10:54 | P.PN ---
Subjective Progress Note Date: 04/11/19 This is a 64-year-old female patient of Dr. Fox. Patient presented for evaluation of pain to right knee and right ankle along with pain to neck. Patient reports that this has been occurring over the past week. Patient reports that started with her knee in which she reported increased swelling and then moved Dr. ankle. Patient reports that she received outpatient injections. Pain did subside but then started in her neck in which she also received injections to her neck with improvement. But now the pain has returned back to her knee and she is unable to ambulate. Patient has past medical history of diabetes mellitus, hyperlipidemia and hypertension. Patient's temp also elevated on admit 100.2. CBC completed revealing critically high blast cells 7. Hematology consult has been placed. Chest x-ray completed showing no acute process. This time patient is resting comfortably in bed. Patient denies any fevers at home. Patient denies any chest pain shortness breath. Patient denies any nausea vomiting or diarrhea. Patient denies any urinary burning or frequency. On 04/11/2019 patient is alert and oriented 3. Patient is still having increased pain to right knee and right ankle. Orthopedic services have been consulted. X-ray of knee has been ordered. Infectious disease, endocrine and oncology services are following. Thorough workup is in place. At this time patient denies any chest pain or shortness of breath. Patient denies nausea vomiting or diarrhea. Patient denies any urinary burning or frequency. Patient has been afebrile for 24 hours. Patient is maintained on Rocephin per infectious disease. Cultures are pending. Objective - Vital Signs Vital signs: Vital Signs Temp 98.2 F 04/11/19 04:30 Pulse 101 H 04/11/19 04:30 Resp 20 04/11/19 04:30 BP 164/75 04/11/19 04:30 Pulse Ox 94 L 04/11/19 04:30 Intake & Output 04/10/19 04/11/19 04/11/19 18:59 06:59 18:59 Intake Total 540 300 Balance 540 300 Intake: Oral 540 300 Other: Voiding Method Incontinent # Voids 3 2 - Exam Head normocephalic Neck supple Lungs clear to auscultation bilaterally no wheezing or crackles Heart regular rate and rhythm S1-S2, no rub or gallop Abdomen is soft nontender nondistended positive bowel sounds no hepato splenomegaly Extremities minimal swelling noted to right knee Neuro alert and orientated to 3 - Labs CBC & Chem 7: 04/11/19 09:11 04/10/19 11:15 Labs: Abnormal Lab Results - Last 24 Hours (Table) 04/10/19 04/10/19 04/10/19 Range/Units 11:15 11:15 11:15 RBC 3.40 L (3.80-5.40) m/uL Hgb 10.7 L (11.4-16.0) gm/dL Hct 32.7 L (34.0-46.0) % RDW 16.0 H (11.5-15.5) % Plt Count 137 L (150-450) k/uL Blast Cells % 9 H* % Neutrophils # (Manual) 1.20 L (1.3-7.7) k/uL Monocytes # (Manual) 3.47 H (0-1.0) k/uL Blast Cells # (Man) 0.61 H (0) k/uL ESR 112 H (0-20) mm/hr Glucose 118 H (74-99) mg/dL C-Reactive Protein (<10.0) mg/L Total Protein 8.3 H (6.3-8.2) g/dL Vitamin D 25-Hydroxy (30.0-100.0) ng/mL Rheumatoid Factor (0-15) IU/mL 04/10/19 04/10/19 04/10/19 Range/Units 11:15 15:46 15:46 RBC (3.80-5.40) m/uL Hgb (11.4-16.0) gm/dL Hct (34.0-46.0) % RDW (11.5-15.5) % Plt Count (150-450) k/uL Blast Cells % % Neutrophils # (Manual) (1.3-7.7) k/uL Monocytes # (Manual) (0-1.0) k/uL Blast Cells # (Man) (0) k/uL ESR (0-20) mm/hr Glucose (74-99) mg/dL C-Reactive Protein 227.9 H (<10.0) mg/L Total Protein (6.3-8.2) g/dL Vitamin D 25-Hydroxy 29.0 L (30.0-100.0) ng/mL Rheumatoid Factor 16 H (0-15) IU/mL 04/11/19 Range/Units 09:11 RBC 3.03 L (3.80-5.40) m/uL Hgb 9.5 L (11.4-16.0) gm/dL Hct 28.8 L (34.0-46.0) % RDW 15.9 H (11.5-15.5) % Plt Count 143 L (150-450) k/uL Blast Cells % % Neutrophils # (Manual) (1.3-7.7) k/uL Monocytes # (Manual) (0-1.0) k/uL Blast Cells # (Man) (0) k/uL ESR (0-20) mm/hr Glucose (74-99) mg/dL C-Reactive Protein (<10.0) mg/L Total Protein (6.3-8.2) g/dL Vitamin D 25-Hydroxy (30.0-100.0) ng/mL Rheumatoid Factor (0-15) IU/mL Microbiology - Last 24 Hours (Table) 04/09/19 16:14 Urine Culture - Final Urine,Voided 04/09/19 14:05 Blood Culture - Preliminary Blood No Growth after 24 hours Assessment and Plan Assessment: 1. Polyarthralgia of the right knee, right ankle and neck. X-ray of knee completed on 04/07/2019 showing no acute osseous abnormality chronic findings as described. Venous Doppler completed on 04/07/2099 showing no evidence for deep vein thrombosis in the right lower extremity. 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 Cervical spine x-ray completed showing no acute osseous abnor mality identified. However lateral positioning is suboptimal. Multilevel degenerative change of the cervical spine with mild to moderate osseous foraminal narrowing of C5 to C6 and C6 to C7. Right ankle x-ray completed showing osteoarthritis, soft tissue swelling and osteopenia plantar calcaneal spur evidence of remote trauma. Orthopedics services have been consulted. Patient started on Solu-Medrol 60 mg every 6 hours 2. febrile. Infectious [place] following. Patient started Rocephin cultures pending. ESR elevated at 112 and CRP elevated 227.9. Chest x-ray completed showing no acute process. Blood and urine cultures ordered. 3. Abnormal CBC. Blast cells critically high at 7. Patient evaluated by oncology services plans for outpatient bone marrow biopsy and aspirate. 4. History of diabetes mellitus. Home meds resumed. Hemoglobin A1c ordered. Sliding scale insulin added 5. History of hyperlipidemia 6. History of essential hypertension DvT prophylaxis heparin. GI prophylaxis Protonix Oncology, endocrinology, infectious disease and orthopedic services consulted PT OT consult placed social consulted for possible ECF placement upon discharge I performed an examination of the patient and discussed their management with the Nurse Practitioner. I have reviewed the Nurse Practitioner's notes and agree with the documented findings and plan of care
[2019-04-11 11:10] LABS: C Reactive Protein 247.9 mg/L (<10.0)
[2019-04-11 12:19] LABS: Erythrocyte Sedimentation Rate 119 mm/hr (0-20)
[2019-04-11 12:27] LABS: HLA B27 NEGATIVE
[2019-04-11 12:56] LABS: Metamyelocytes # (M) 0.07 k/uL (0); Metamyelocytes % 1 %
[2019-04-11 12:59] LABS: Nucleated Red Blood Cells 0 /100 WBC (0-0); Total Cells Counted 200
[2019-04-11 13:02] LABS: Large Platelets Present
[2019-04-11 13:27] LABS: Band Neutrophils % 2 %; Basophils # (M) 0.07 k/uL (0-0.2); Lymphocytes # (M) 2.41 k/uL (1.0-4.8); Monocytes # (M) 2.41 k/uL (0-1.0); Neutrophils % (M) 19 %
[2019-04-11 13:28] LABS: Blast Cells # (M) 0.47 k/uL (0); Rouleaux Present
--- NOTE | 2019-04-11 14:04 | PN ---
PROGRESS NOTE DATE OF SERVICE: 04/11/2019. REASON FOR FOLLOWUP: Right ankle and knee pain and question of infectious versus infection. INTERVAL HISTORY: The patient is currently afebrile. The patient's pain to the right ankle area has improved as well as to the right knee. The patient denies having any chest pain. No shortness of breath or cough. No abdominal pain. No diarrhea. PHYSICAL EXAMINATION: Blood pressure is 164/75 with a pulse of 101, temperature 98.2. She is 94% on room air. General description is an elderly female lying in bed in no distress. Respiratory system: Unlabored breathing, clear to auscultation anteriorly. Heart S1, S2. Regular rate and rhythm. ABDOMEN: Soft, no tenderness. Right ankle, lateral side with minimal swelling. No significant warmth was noticed today and no tenderness. LABS: Hemoglobin 9.5, white count 6.7. elevated 119, CRP 247. DIAGNOSTIC IMPRESSION/PLAN: Patient admitted to the hospital with pain right ankle and knee area in this patient who did have a low-grade fever with significant elevated inflammatory marker x- rays of the knee, mostly osteoarthritis. May benefit from orthopedic evaluation and possible aspirate of that joint to rule out septic arthritis. Currently on antibiotics, to continue. Monitor clinical course closely. MMODL / IJN: [id number] /
[2019-04-11] MEDS: INSULIN ASPART (NovoLOG) 100 UNIT/ML VIAL SQ SCH ×3 (15:30→21:57)
[2019-04-11] MEDS: methylPREDNISolone SOD SUCCI 125 MG/2 ML VIAL IV SCH (15:35)
--- NOTE | 2019-04-11 15:56 | P.PN ---
Subjective Progress Note Date: 04/11/19 Principal diagnosis: Fever, blasts in peripheral blood In follow-up today patient has improved pain control in the right knee and ankle, the joints are less swollen, less tender, patient denies any other complaints Objective - Vital Signs Vital signs: Vital Signs Temp 97.9 F 04/11/19 13:03 Pulse 72 04/11/19 13:03 Resp 16 04/11/19 13:03 BP 103/66 04/11/19 13:03 Pulse Ox 96 04/11/19 13:03 Intake & Output 04/10/19 04/11/19 04/11/19 18:59 06:59 18:59 Intake Total 540 300 Balance 540 300 Intake: Oral 540 300 Other: Voiding Method Incontinent # Voids 3 2 3 - Constitutional General appearance: Present: average body habitus, cooperative, no acute distress - EENT Eyes: Present: anicteric sclerae, EOMI - Respiratory Details: Respirations even and unlabored - Cardiovascular Details: Radial pulse palpable +2 - Gastrointestinal General gastrointestinal: Present: normal bowel sounds, soft - Neurologic Neurologic: Present: CNII-XII intact - Musculoskeletal Musculoskeletal Comment(s): Right knee and right ankle continue to be swollen, less than yesterday, less he at radiating from these joints, no acute changes to the skin noted, no unrealistic pain at this time Musculoskeletal: Present: strength equal bilaterally - Psychiatric Psychiatric: Present: A&O x's 3, appropriate affect, intact judgment & insight - Labs CBC & Chem 7: 04/11/19 09:11 04/11/19 09:11 Labs: Abnormal Lab Results - Last 24 Hours (Table) 04/10/19 04/10/19 04/10/19 Range/Units 11:15 15:46 15:46 RBC (3.80-5.40) m/uL Hgb (11.4-16.0) gm/dL Hct (34.0-46.0) % RDW (11.5-15.5) % Plt Count (150-450) k/uL Blast Cells % % Monocytes # (Manual) (0-1.0) k/uL Metamyelocytes # (Man) (0) k/uL Blast Cells # (Man) (0) k/uL ESR (0-20) mm/hr Glucose (74-99) mg/dL C-Reactive Protein 227.9 H (<10.0) mg/L Vitamin D 25-Hydroxy 29.0 L (30.0-100.0) ng/mL Rheumatoid Factor 16 H (0-15) IU/mL 04/11/19 04/11/19 Range/Units 09:11 09:11 RBC 3.03 L (3.80-5.40) m/uL Hgb 9.5 L (11.4-16.0) gm/dL Hct 28.8 L (34.0-46.0) % RDW 15.9 H (11.5-15.5) % Plt Count 143 L (150-450) k/uL Blast Cells % 7 H* % Monocytes # (Manual) 2.41 H (0-1.0) k/uL Metamyelocytes # (Man) 0.07 H (0) k/uL Blast Cells # (Man) 0.47 H (0) k/uL ESR 119 H (0-20) mm/hr Glucose 155 H (74-99) mg/dL C-Reactive Protein 247.9 H (<10.0) mg/L Vitamin D 25-Hydroxy (30.0-100.0) ng/mL Rheumatoid Factor (0-15) IU/mL Microbiology - Last 24 Hours (Table) 04/09/19 16:14 Urine Culture - Final Urine,Voided 04/09/19 14:05 Blood Culture - Preliminary Blood No Growth after 24 hours Assessment and Plan (1) Abnormal CBC Narrative/Plan: CBC, stable WBC and blast count. Hgb further decreased today, not needing transfusion at this time. Plt count stable. Pending Flow cytometry results. Pt does have inflammatory markers that are elevated, Rheumatology following, work up in progress Current Visit: Yes Status: Acute Priority: High Code(s): R79.89 - OTHER SPECIFIED ABNORMAL FINDINGS OF BLOOD CHEMISTRY SNOMED Code(s): 918670467
[2019-04-11 19:51] LABS: Hemoglobin A1C 7.3 % (4.0-6.0)
[2019-04-11 21:12] LABS: Glucose,Whole Blood 194 mg/dL (75-99)
[2019-04-12] MEDS: methylPREDNISolone SOD SUCCI 125 MG/2 ML VIAL IV SCH ×3 (00:31→15:07)
[2019-04-12] MEDS: HYDROcodone/APAP 7.5-325MG 1 EACH TAB PO PRN ×2 (02:13→12:48)
[2019-04-12 07:07] LABS: Glucose,Whole Blood 178 mg/dL (75-99)
[2019-04-12] MEDS: INSULIN ASPART (NovoLOG) 100 UNIT/ML VIAL SQ SCH ×4 (08:08→20:46)
[2019-04-12] MEDS: HYDROmorphone 0.5 MG/0.5 ML SYRINGE IVP PRN (08:09)
[2019-04-12] MEDS: HEPARIN SODIUM,PORCINE 5,000 UNIT/ML 1 ML VIAL SQ SCH ×2 (08:09→20:35)
[2019-04-12] MEDS: LISINOPRIL-HCTZ 10-12.5 MG 1 EACH TAB PO SCH (08:10)
[2019-04-12] MEDS: metFORMIN 500 MG TAB PO SCH ×2 (08:10→17:30)
[2019-04-12] MEDS: PRAVASTATIN SODIUM 20 MG TAB PO SCH (08:10)
[2019-04-12] MEDS: CITALOPRAM HYDROBROMIDE 20 MG TAB PO SCH (08:10)
[2019-04-12] MEDS: PANTOPRAZOLE 40 MG TABLET PO SCH (08:10)
--- NOTE | 2019-04-12 09:05 | P.CNOR ---
History of Present Illness - [facility] Consult date: 04/12/19 Consult reason: joint pain (Multiple arthralgias) History of present illness: This is a 64-year-old female admitted through the emergency department on 04/09/2019 with complaint of multiple arthralgias. At the time admission her main complaint was her right knee and right ankle pain. She also had some swelling to these joints. She was found to have blasts and her CBC and she was admitted for further workup. She is currently being followed by oncology/hematology. We are consulted for orthopedic evaluation of her right ankle and knee pain. The patient states that her right ankle and right knee have improved significantly since her admission. She now complains of left ankle pain. Her right shoulder and elbow pain have improved since admission as well. She is currently on site Medrol 60 mg IV and ceftriaxone IV. Past Medical History Past Medical History: Diabetes Mellitus, Hyperlipidemia, Hypertension History of Any Multi-Drug Resistant Organisms: None Reported Past Surgical History: No Surgical Hx Reported Past Psychological History: No Psychological Hx Reported Smoking Status: Never smoker Past Alcohol Use History: None Reported Past Drug Use History: None Reported - Past Family History Mother Family Medical History: Cancer (breast and rectal-did not from cancer) Medications and Allergies Home Medications Medication Instructions Recorded Confirmed Type Citalopram Hydrobromide 40 mg PO DAILY 04/06/19 04/09/19 History [Citalopram HBr] Lisinopril-Hctz 10-12.5 mg 1 tab PO DAILY 04/06/19 04/09/19 History [Zestoretic 10-12.5] Methocarbamol [Robaxin] 500 mg PO DAILY PRN 04/06/19 04/09/19 History Pravastatin Sodium [Pravachol] 10 mg PO DAILY 04/06/19 04/09/19 History diphenhydrAMINE [Benadryl] 25 mg PO HS PRN 04/06/19 04/09/19 History metFORMIN HCL [Glucophage] 500 mg PO BID 04/06/19 04/09/19 History Acetaminophen with Codeine 1 tab PO Q6H PRN 3 Days #12 tab 04/07/19 04/09/19 Rx [Tylenol w/codeine #3] Ibuprofen [Motrin Ib] 400 mg PO Q6H PRN 04/09/19 04/09/19 History Allergies Allergy/AdvReac Type Severity Reaction Status Date / Time latex Allergy Rash/Hives Verified 04/09/19 12:57 Physical Examination This is a pleasant 64-year-old female in no acute distress. She is alert and oriented 3. Exam of the head neck reveal no obvious deformity. She has fairly good cervical spine motion without difficulty or pain. No pain on palpation about cervical spine or paraspinal musculature. Exam of the upper extremities reveals no obvious deformity. She has fairly good shoulder, elbow, wrist and finger motion bilaterally. No areas of swelling or redness noted. Neurovascular status to the upper extremities is intact. Exam of the lower extremities reveals no erythema to the knees or ankles. There is lateral soft tissue swelling about the right ankle. She has full foot and ankle motion without difficulty or pain. There is minimal effusion noted to the right knee. No warmth noted. She is able to actively flex the knee to about 90 without pain. Exam the left lower extremity is unremarkable. Minimal swelling to the ankle. Full foot ankle motion noted. Full knee motion. Neurovascular status to the lower extremities is intact. Results X-rays of the right ankle reveal no bony abnormality. Minimal arthritic changes noted. No acute fractures noted. - Labs Labs: Abnormal Lab Results - Last 24 Hours (Table) 04/11/19 04/11/19 04/11/19 Range/Units 09:11 09:11 09:11 RBC 3.03 L (3.80-5.40) m/uL Hgb 9.5 L (11.4-16.0) gm/dL Hct 28.8 L (34.0-46.0) % RDW 15.9 H (11.5-15.5) % Plt Count 143 L (150-450) k/uL Blast Cells % 7 H* % Monocytes # (Manual) 2.41 H (0-1.0) k/uL Metamyelocytes # (Man) 0.07 H (0) k/uL Blast Cells # (Man) 0.47 H (0) k/uL ESR 119 H (0-20) mm/hr Glucose 155 H (74-99) mg/dL POC Glucose (mg/dL) (75-99) mg/dL Hemoglobin A1c 7.3 H (4.0-6.0) % C-Reactive Protein 247.9 H (<10.0) mg/L 04/11/19 04/12/19 Range/Units 21:07 07:05 RBC (3.80-5.40) m/uL Hgb (11.4-16.0) gm/dL Hct (34.0-46.0) % RDW (11.5-15.5) % Plt Count (150-450) k/uL Blast Cells % % Monocytes # (Manual) (0-1.0) k/uL Metamyelocytes # (Man) (0) k/uL Blast Cells # (Man) (0) k/uL ESR (0-20) mm/hr Glucose (74-99) mg/dL POC Glucose (mg/dL) 194 H 178 H (75-99) mg/dL Hemoglobin A1c (4.0-6.0) % C-Reactive Protein (<10.0) mg/L Microbiology - Last 24 Hours (Table) 04/09/19 14:05 Blood Culture - Preliminary Blood No Growth after 48 hours H & H 04/09/19 04/10/19 04/11/19 Range/Units 14:05 11:15 09:11 Hgb 10.4 L 10.7 L 9.5 L (11.4-16.0) gm/dL Hct 31.2 L 32.7 L 28.8 L (34.0-46.0) % Coagulation 04/09/19 Range/Units 14:05 INR 1.0 (<1.2) Result Diagrams: 04/11/19 09:11 04/11/19 09:11 Assessment and Plan (1) Ankle pain, right Current Visit: Yes Status: Acute Code(s): M25.571 - PAIN IN RIGHT ANKLE AND JOINTS OF RIGHT FOOT SNOMED Code(s): 004340732 (2) Abnormal CBC Current Visit: Yes Status: Acute Priority: High Code(s): R79.89 - OTHER SPECIFIED ABNORMAL FINDINGS OF BLOOD CHEMISTRY SNOMED Code(s): 724395424 (3) Fever Current Visit: Yes Status: Acute Code(s): R50.9 - FEVER, UNSPECIFIED SNOMED Code(s): 895839490 (4) Polyarthralgia Current Visit: Yes Status: Acute Code(s): M25.50 - PAIN IN UNSPECIFIED JOINT SNOMED Code(s): 79442228 (5) Osteoarthritis, knee Current Visit: Yes Status: Chronic Priority: Low Code(s): M17.10 - UNILATERAL PRIMARY OSTEOARTHRITIS, UNSPECIFIED KNEE SNOMED Code(s): 485387002 Plan: The clinical and x-ray findings are discussed with the patient. She seems to be experiencing a polyarthralgia which is improved with steroids and antibiotics. I recommend continuing on a tapered oral dose of steroid at discharge per in ternal medicine. She is able to bear weight with less pain today so I would hold off on any type of immobilization of the knee or ankles. Continue gentle range of motion exercises and weightbearing as tolerated. The patient is scheduled to follow up with Dr. Caro on April 17. I recommend she keep that appointment. She is to call our office sooner if symptoms return or worsen.
[2019-04-12 09:19] LABS: HCT 33.5 % (34.0-46.0); HGB 10.9 gm/dL (11.4-16.0); MCH 31.1 pg (25.0-35.0); MCHC 32.4 g/dL (31.0-37.0); MCV 95.9 fL (80.0-100.0); Mean Platelet Volume 13.6; RBC 3.49 m/uL (3.80-5.40); RDW 15.3 % (11.5-15.5); WBC 7.6 k/uL (3.8-10.6)
[2019-04-12 09:29] LABS: ALT 7 U/L (9-52); AST 17 U/L (14-36); African American GFR (CKD) >90 (>60 ml/min/1.73 sqM); Albumin 3.9 g/dL (3.5-5.0); Alkaline Phosphatase 106 U/L (38-126); Anion Gap 11 mmol/L; Blood Urea Nitrogen 16 mg/dL (7-17); Calcium 9.1 mg/dL (8.4-10.2); Carbon Dioxide 28 mmol/L (22-30); Chloride 102 mmol/L (98-107); Glucose 230 mg/dL (74-99); Potassium 4.2 mmol/L (3.5-5.1); Sodium 141 mmol/L (137-145); Total Bilirubin 0.3 mg/dL (0.2-1.3); Total Protein 8.4 g/dL (6.3-8.2)
[2019-04-12 11:03] LABS: Band Neutrophils % 1 %; Metamyelocytes # (M) 0.08 k/uL (0); Metamyelocytes % 1 %; Monocytes # (M) 1.14 k/uL (0-1.0); Myelocytes # (M) 0.08 k/uL (0); Myelocytes % 1 %; Neutrophils % (M) 26 %
[2019-04-12 11:04] LABS: Nucleated Red Blood Cells 0 /100 WBC (0-0); Total Cells Counted 200
[2019-04-12 11:05] LABS: Platelet Count 158 k/uL (150-450)
[2019-04-12 11:21] LABS: Polychromasia Present
[2019-04-12 11:22] LABS: Rouleaux Present
[2019-04-12 12:10] LABS: Glucose,Whole Blood 192 mg/dL (75-99)
--- NOTE | 2019-04-12 12:22 | P.PN ---
Subjective Progress Note Date: 04/12/19 This is a 64-year-old female patient of Dr. Fox. Patient presented for evaluation of pain to right knee and right ankle along with pain to neck. Patient reports that this has been occurring over the past week. Patient reports that started with her knee in which she reported increased swelling and then moved Dr. ankle. Patient reports that she received outpatient injections. Pain did subside but then started in her neck in which she also received injections to her neck with improvement. But now the pain has returned back to her knee and she is unable to ambulate. Patient has past medical history of diabetes mellitus, hyperlipidemia and hypertension. Patient's temp also elevated on admit 100.2. CBC completed revealing critically high blast cells 7. Hematology consult has been placed. Chest x-ray completed showing no acute process. This time patient is resting comfortably in bed. Patient denies any fevers at home. Patient denies any chest pain shortness breath. Patient denies any nausea vomiting or diarrhea. Patient denies any urinary burning or frequency. On 04/11/2019 patient is alert and oriented 3. Patient is still having increased pain to right knee and right ankle. Orthopedic services have been consulted. X-ray of knee has been ordered. Infectious disease, endocrine and oncology services are following. Thorough workup is in place. At this time patient denies any chest pain or shortness of breath. Patient denies nausea vomiting or diarrhea. Patient denies any urinary burning or frequency. Patient has been afebrile for 24 hours. Patient is maintained on Rocephin per infectious disease. Cultures are pending. On 04/12/2018 patient is alert and oriented 3. Patient states improvement to right knee and ankle pain along with left sided pain. Per orthopedic services patient to be discharged with Taper oral dose steroids. Patient remains on Rocephin per infectious disease. Per infectious disease recommending Keflex upon discharge. Patient planning to be DC'd to [facility] on tuesday to medilodg. Planning bone marrow biopsy outpatient per oncology services. Patient remains on IV Solu-Medrol at this time. Patient denies any chest pain or shortness of breath. Patient denies nausea vomiting or diarrhea. Patient denies any urinary burning or frequency Objective - Vital Signs Vital signs: Vital Signs Temp 98.3 F 04/12/19 04:45 Pulse 76 06/20/19 04:45 Resp 20 04/12/19 04:45 BP 122/71 04/12/19 04:45 Pulse Ox 93 L 04/12/19 04:45 Intake & Output 04/11/19 04/12/19 04/12/19 18:59 06:59 18:59 Intake Total 400 Balance 400 Intake: Oral 400 Other: Voiding Method Incontinent Incontinent # Voids 1 2 # Bowel Movements 0 0 - Exam Head normocephalic Neck supple Lungs clear to auscultation bilaterally no wheezing or crackles Heart regular rate and rhythm S1-S2, no rub or gallop Abdomen is soft nontender nondistended positive bowel sounds no hepatosplenomegaly Extremities minimal swelling noted to right knee Neuro alert and orientated to 3 - Labs CBC & Chem 7: 04/12/19 08:32 04/12/19 08:32 Labs: Abnormal Lab Results - Last 24 Hours (Table) 04/11/19 04/11/19 04/11/19 Range/Units 09:11 09:11 21:07 RBC (3.80-5.40) m/uL Hgb (11.4-16.0) gm/dL Hct (34.0-46.0) % Blast Cells % 7 H* % Monocytes # (Manual) 2.41 H (0-1.0) k/uL Metamyelocytes # (Man) 0.07 H (0) k/uL Myelocytes # (Manual) (0) k/uL Blast Cells # (Man) 0.47 H (0) k/uL ESR 119 H (0-20) mm/hr Glucose (74-99) mg/dL POC Glucose (mg/dL) 194 H (75-99) mg/dL Hemoglobin A1c 7.3 H (4.0-6.0) % ALT (9-52) U/L Total Protein (6.3-8.2) g/dL 04/12/19 04/12/19 04/12/19 Range/Units 07:05 08:32 08:32 RBC 3.49 L (3.80-5.40) m/uL Hgb 10.9 L (11.4-16.0) gm/dL Hct 33.5 L (34.0-46.0) % Blast Cells % 4 H* % Monocytes # (Manual) 1.14 H (0-1.0) k/uL Metamyelocytes # (Man) 0.08 H (0) k/uL Myelocytes # (Manual) 0.08 H (0) k/uL Blast Cells # (Man) 0.30 H (0) k/uL ESR (0-20) mm/hr Glucose 230 H (74-99) mg/dL POC Glucose (mg/dL) 178 H (75-99) mg/dL Hemoglobin A1c (4.0-6.0) % ALT 7 L (9-52) U/L Total Protein 8.4 H (6.3-8.2) g/dL Microbiology - Last 24 Hours (Table) 04/09/19 14:05 Blood Culture - Preliminary Blood No Growth after 48 hours Assessment and Plan Assessment: 1. Polyarthralgia of the right knee, right ankle and neck. X-ray of knee completed on 04/07/2019 showing no acute osseous abnormality chronic findings as described. Venous Doppler completed on 04/07/2099 showing no evidence for deep vein thrombosis in the right lower extremity. 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 Cervical spine x-ray completed showing no acute osseous abnormality identified. However lateral positioning is suboptimal. Multilevel degenerative change of the cervical spine with mild to moderate osseous foraminal narrowing of C5 to C6 and C6 to C7. Right ankle x-ray completed showing osteoarthritis, soft tissue swelling and osteopenia plantar calcaneal spur evidence of remote trauma. Patient started on Solu-Medrol 60 mg every 6 hours. Per orthopedic services recommend taper steroids upon discharge no need for immobilization at this time continue gentle range of motion exercises and weightbearing as tolerated patient has follow-up appointment with Dr. Caro on april 17. 2. febrile. Infectious [place] following. Patient started Rocephin cultures pending. ESR elevated at 112 and CRP elevated 227.9. Chest x-ray completed showing no acute process. Blood and urine cultures ordered. Per infectious disease recommending patient DC'd on Keflex at time of discharge 3. Abnormal CBC. Blast cells critically high at 7. Patient evaluated by oncology services plans for outpatient bone marrow biopsy and aspirate. 4. History of diabetes mellitus. Home meds resumed. Hemoglobin A1c 7.3. Sliding scale insulin added 5. History of hyperlipidemia 6. History of essential hypertension DvT prophylaxis heparin. GI prophylaxis Protonix Oncology, endocrinology, infectious disease and orthopedic services consulted PT OT consult placed Plans for discharge to [facility] on 04/14/2019 I performed an examination of the patient and discussed their management with the Nurse Practitioner. I have reviewed the Nurse Practitioner's notes and agree with the documented findings and plan of care
--- NOTE | 2019-04-12 14:51 | P.PN ---
Subjective Progress Note Date: 04/12/19 Principal diagnosis: Fever, blasts in peripheral blood Objective - Vital Signs Vital signs: Vital Signs Temp 98.3 F 04/12/19 04:45 Pulse 76 04/12/19 04:45 Resp 20 04/12/19 04:45 BP 122/71 04/12/19 04:45 Pulse Ox 93 L 04/12/19 04:45 Intake & Output 04/11/19 04/12/19 04/12/19 18:59 06:59 18:59 Intake Total 400 Balance 400 Intake: Oral 400 Other: Voiding Method Incontinent Incontinent # Voids 1 2 # Bowel Movements 0 0 - Constitutional General appearance: Present: cooperative, no acute distress - EENT Eyes: Present: anicteric sclerae ENT: Present: hearing grossly normal - Respiratory Details: respirations even and unlabored - Cardiovascular Rhythm: regular Heart sounds: normal: S1, S2 - Peripheral edema leg Peripheral Edema: bilateral: None - Gastrointestinal General gastrointestinal: Present: normal bowel sounds - Neurologic Neurologic: Present: CNII-XII intact - Musculoskeletal Musculoskeletal Comment(s): stable right knee and ankle swelling, decreased swelling and pain - Psychiatric Psychiatric: Present: A&O x's 3, appropriate affect, intact judgment & insight - Labs CBC & Chem 7: 04/12/19 08:32 04/12/19 08:32 Labs: Abnormal Lab Results - Last 24 Hours (Table) 04/11/19 04/11/19 04/12/19 Range/Units 09:11 21:07 07:05 RBC (3.80-5.40) m/uL Hgb (11.4-16.0) gm/dL Hct (34.0-46.0) % Blast Cells % % Monocytes # (Manual) (0-1.0) k/uL Metamyelocytes # (Man) (0) k/uL Myelocytes # (Manual) (0) k/uL Blast Cells # (Man) (0) k/uL Glucose (74-99) mg/dL POC Glucose (mg/dL) 194 H 178 H (75-99) mg/dL Hemoglobin A1c 7.3 H (4.0-6.0) % ALT (9-52) U/L Total Protein (6.3-8.2) g/dL 04/12/19 04/12/19 04/12/19 Range/Units 08:32 08:32 12:07 RBC 3.49 L (3.80-5.40) m/uL Hgb 10.9 L (11.4-16.0) gm/dL Hct 33.5 L (34.0-46.0) % Blast Cells % 4 H* % Monocytes # (Manual) 1.14 H (0-1.0) k/uL Metamyelocytes # (Man) 0.08 H (0) k/uL Myelocytes # (Manual) 0.08 H (0) k/uL Blast Cells # (Man) 0.30 H (0) k/uL Glucose 230 H (74-99) mg/dL POC Glucose (mg/dL) 192 H (75-99) mg/dL Hemoglobin A1c (4.0-6.0) % ALT 7 L (9-52) U/L Total Protein 8.4 H (6.3-8.2) g/dL Microbiology - Last 24 Hours (Table) 04/09/19 14:05 Blood Culture - Preliminary Blood No Growth after 48 hours Assessment and Plan (1) Abnormal CBC Narrative/Plan: Flow cytometry returned. 6% blasts, no monoclonal B-cell population, monocytosis. Findings can be consistent with a chronic monomyelocytic leukemia, inflammation, or infection. Recommendation is for bone marrow biopsy and aspirate. Case was discussed with Dr. Carson. Reviewed the findings and the procedure with the patient, including risk for infection and bleeding. Patient is agreeable to proceed. Scheduled for 7 AM tomorrow morning. Nothing by mouth after midnight, hold anticoagulation in the a.m., request for consent. Current Visit: Yes Status: Acute Priority: High Code(s): R79.89 - OTHER SPECIFIED ABNORMAL FINDINGS OF BLOOD CHEMISTRY SNOMED Code(s): 348730173
[2019-04-12] MEDS: METHOCARBAMOL 500 MG TAB PO PRN (15:07)
[2019-04-12 17:22] LABS: Glucose,Whole Blood 197 mg/dL (75-99)
--- NOTE | 2019-04-12 19:25 | PN ---
PROGRESS NOTE DATE OF SERVICE: 04/12/2019 REASON FOR FOLLOWUP: Fever with a question of cellulitis/septic arthritis. INTERVAL HISTORY: The patient is currently afebrile. The patient has been feeling better. Her right ankle and the leg area pain and swelling have improved, currently with no redness or open wound. The patient denies having any chest pain or shortness of breath or cough. No abdominal pain or diarrhea. PHYSICAL EXAMINATION: Blood pressure is 120/60 with a pulse of 95, temperature 97.3. She is 95% on room air. General description is an elderly female lying in bed in no distress. RESPIRATORY SYSTEM: Unlabored breathing. Clear to auscultation anteriorly. HEART: S1, S2. Regular rate and rhythm. ABDOMEN: Soft. RIGHT ANKLE AND LEG AREA: Currently no swelling, no redness. LABS: Hemoglobin is 10.9, white count 7.6, BUN of 16, creatinine 0.58. DIAGNOSTIC IMPRESSION AND PLAN: Patient with right ankle and leg pain and swelling. This patient did have a low-grade fever on admission that has subsequently resolved, with a question of possible cellulitis. Clinically doubt septic arthritis. Ortho has seen the patient and is not recommending any aspirate. Currently responding to steroids; to continue along with a short course of oral Keflex. Plan of care was discussed with the admitting team. Continue with supportive care. MMODL / IJN: [id number] /
[2019-04-12 20:48] LABS: Glucose,Whole Blood 216 mg/dL (75-99)
[2019-04-13] MEDS: methylPREDNISolone SOD SUCCI 125 MG/2 ML VIAL IV SCH ×4 (00:01→23:38)
[2019-04-13] MEDS: LACTATED RINGERS 1,000 ML IV SCH (06:56)
[2019-04-13] MEDS ORDERED: MIDAZOLAM 2 MG/2 ML VIAL ONE (06:57)
[2019-04-13] MEDS: INSULIN ASPART (NovoLOG) 100 UNIT/ML VIAL SQ SCH ×4 (06:57→20:45)
[2019-04-13] MEDS ORDERED: fentaNYL (PF) 50 MCG/ML 2 ML AMP ONE (06:57)
[2019-04-13] MEDS ORDERED: PROPOFOL 10 MG/ML 20 ML VIAL IV ONE (06:57)
[2019-04-13] MEDS ORDERED: IV FLUID CONTINUATION 1,000 ML IV ONE (07:07)
--- NOTE | 2019-04-13 07:39 | P.PCN ---
Date of Procedure: 04/13/19 Preoperative Diagnosis: Abnormal WBC differential, possible myeloproliferative disorder Postoperative Diagnosis: Same Procedure(s) Performed: Bone marrow aspiration and biopsy Anesthesia: MAC Surgeon: Francisco Carson Ict Business Development Manager #1: Stated None Estimated Blood Loss (ml): 1 Pathology: other Condition: stable Disposition: floor Indications for Procedure: Abnormal WBC differential. Blasts and monocytosis on peripheral smear. Operative Findings: Adequate sample Description of Procedure: The procedure was explained in detail to the patient on the floor. Informed consent was up and on the floor. She presented to the outpatient endoscopy suite. She was then placed in the left lateral decubitus position and area over both iliac crests cleaned and prepped with chlorhexidine and sterile draping. IV sedation was then initiated. Local anesthesia was administered with lidocaine to the right posterior hilar crest. A Jamshidi needle was then inserted and bone marrow aspirate and biopsy obtained. On withdrawal of the needle hemostasis was easily achieved. Blood loss was minimal and recovery from sedation was satisfactory. He appeared to have tolerated the procedure well without any obvious immediate complications
[2019-04-13 07:47] LABS: Glucose,Whole Blood 178 mg/dL (75-99)
[2019-04-13 08:51] LABS: HCT 27.5 % (34.0-46.0); MCH 31.6 pg (25.0-35.0); MCHC 33.2 g/dL (31.0-37.0); MCV 95.1 fL (80.0-100.0); Mean Platelet Volume 14.1; Platelet Count 159 k/uL (150-450); RDW 15.3 % (11.5-15.5)
[2019-04-13 09:09] LABS: ALT 13 U/L (9-52); AST 17 U/L (14-36); African American GFR (CKD) >90 (>60 ml/min/1.73 sqM); Albumin 3.2 g/dL (3.5-5.0); Alkaline Phosphatase 81 U/L (38-126); Anion Gap 7 mmol/L; Blood Urea Nitrogen 21 mg/dL (7-17); Calcium 8.7 mg/dL (8.4-10.2); Carbon Dioxide 31 mmol/L (22-30); Chloride 102 mmol/L (98-107); Glucose 164 mg/dL (74-99); Potassium 4.6 mmol/L (3.5-5.1); Sodium 140 mmol/L (137-145); Total Bilirubin 0.3 mg/dL (0.2-1.3)
[2019-04-13] MEDS: PANTOPRAZOLE 40 MG TABLET PO SCH (09:19)
[2019-04-13] MEDS: PRAVASTATIN SODIUM 20 MG TAB PO SCH (09:19)
[2019-04-13] MEDS: HEPARIN SODIUM,PORCINE 5,000 UNIT/ML 1 ML VIAL SQ SCH ×2 (09:20→20:45)
[2019-04-13] MEDS: LISINOPRIL-HCTZ 10-12.5 MG 1 EACH TAB PO SCH (09:20)
[2019-04-13] MEDS: CITALOPRAM HYDROBROMIDE 20 MG TAB PO SCH (09:20)
[2019-04-13] MEDS: metFORMIN 500 MG TAB PO SCH ×2 (09:21→18:03)
[2019-04-13 09:25] LABS: HGB 9.1 gm/dL (11.4-16.0)
[2019-04-13 10:36] LABS: Blast Cells # (M) 0.18 k/uL (0); Eosinophils # (M) 0.06 k/uL (0-0.7); Large Platelets Present; Lymphocytes # (M) 2.46 k/uL (1.0-4.8); Metamyelocytes # (M) 0.06 k/uL (0); Metamyelocytes % 1 %; Monocytes # (M) 0.84 k/uL (0-1.0); Myelocytes # (M) 0.06 k/uL (0); Myelocytes % 1 %; Neutrophils # (M) 2.46 k/uL (1.3-7.7); Neutrophils % (M) 41 %; Nucleated Red Blood Cells 0 /100 WBC (0-0); Rouleaux Present; Total Cells Counted 200
--- NOTE | 2019-04-13 10:44 | P.PN ---
Subjective Progress Note Date: 04/13/19 This is a 64-year-old female patient of Dr. Fox. Patient presented for evaluation of pain to right knee and right ankle along with pain to neck. Patient reports that this has been occurring over the past week. Patient reports that started with her knee in which she reported increased swelling and then moved Dr. ankle. Patient reports that she received outpatient injections. Pain did subside but then started in her neck in which she also received injections to her neck with improvement. But now the pain has returned back to her knee and she is unable to ambulate. Patient has past medical history of diabetes mellitus, hyperlipidemia and hypertension. Patient's temp also elevated on admit 100.2. CBC completed revealing critically high blast cells 7. Hematology consult has been placed. Chest x-ray completed showing no acute process. This time patient is resting comfortably in bed. Patient denies any fevers at home. Patient denies any chest pain shortness breath. Patient denies any nausea vomiting or diarrhea. Patient denies any urinary burning or frequency. On 04/11/2019 patient is alert and oriented 3. Patient is still having increased pain to right knee and right ankle. Orthopedic services have been consulted. X-ray of knee has been ordered. Infectious disease, endocrine and oncology services are following. Thorough workup is in place. At this time patient denies any chest pain or shortness of breath. Patient denies nausea vomiting or diarrhea. Patient denies any urinary burning or frequency. Patient has been afebrile for 24 hours. Patient is maintained on Rocephin per infectious disease. Cultures are pending. On 04/12/2018 patient is alert and oriented 3. Patient states improvement to right knee and ankle pain along with left sided pain. Per orthopedic services patient to be discharged with Taper oral dose steroids. Patient remains on Rocephin per infectious disease. Per infectious disease recommending Keflex upon discharge. Patient planning to be DC'd to [facility] on tuesday to medilodg. Planning bone marrow biopsy outpatient per oncology services. Patient remains on IV Solu-Medrol at this time. Patient denies any chest pain or shortness of breath. Patient denies nausea vomiting or diarrhea. Patient denies any urinary burning or frequency 04/13/2018 patient had bone marrow biopsy completed today. She reports improvement in her joint pain since admission. She's currently on IV Solu- Medrol and antibiotics. Working on discharge to [facility] tomorrow. Patient denies any chest pain or shortness of breath, nausea or vomiting, Farhad changes or urinary symptoms. Rheumatoid factor elevated at 16 CRP elevated 247.9 vitamin D level low at 29 Objective - Vital Signs Vital signs: Vital Signs Temp 97.7 F 04/13/19 06:39 Pulse 73 04/13/19 06:39 Resp 16 04/13/19 06:39 BP 112/75 04/13/19 06:39 Pulse Ox 98 04/13/19 06:39 Intake & Output 04/12/19 04/13/19 04/13/19 18:59 06:59 18:59 Intake Total 400 Balance 400 Intake: IV 200 Oral 200 Other: Voiding Method Incontinent Bedside Commode # Voids 1 1 # Bowel Movements 1 0 0 - Exam Head normocephalic Neck supple Lungs clear to auscultation bilaterally no wheezing or crackles Heart regular rate and rhythm S1-S2, no rub or gallop Abdomen is soft nontender nondistended positive bowel sounds no hepatosplenomegaly Extremities no edema Neuro alert and orientated to 3 - Labs CBC & Chem 7: 04/13/19 08:09 04/13/19 08:09 Labs: Abnormal Lab Results - Last 24 Hours (Table) 04/12/19 04/12/19 04/12/19 Range/Units 08:32 12:07 17:18 RBC (3.80-5.40) m/uL Hgb (11.4-16.0) gm/dL Hct (34.0-46.0) % Blast Cells % 4 H* % Monocytes # (Manual) 1.14 H (0-1.0) k/uL Metamyelocytes # (Man) 0.08 H (0) k/uL Myelocytes # (Manual) 0.08 H (0) k/uL Blast Cells # (Man) 0.30 H (0) k/uL Carbon Dioxide (22-30) mmol/L BUN (7-17) mg/dL Creatinine (0.52-1.04) mg/dL Glucose (74-99) mg/dL POC Glucose (mg/dL) 192 H 197 H (75-99) mg/dL Albumin (3.5-5.0) g/dL 04/12/19 04/13/19 04/13/19 Range/Units 20:35 07:45 08:09 RBC 2.90 L (3.80-5.40) m/uL Hgb 9.1 L D (11.4-16.0) gm/dL Hct 27.5 L (34.0-46.0) % Blast Cells % % Monocytes # (Manual) (0-1.0) k/uL Metamyelocytes # (Man) (0) k/uL Myelocytes # (Manual) (0) k/uL Blast Cells # (Man) (0) k/uL Carbon Dioxide (22-30) mmol/L BUN (7-17) mg/dL Creatinine (0.52-1.04) mg/dL Glucose (74-99) mg/dL POC Glucose (mg/dL) 216 H 178 H (75-99) mg/dL Albumin (3.5-5.0) g/dL 04/13/19 Range/Units 08:09 RBC (3.80-5.40) m/uL Hgb (11.4-16.0) gm/dL Hct (34.0-46.0) % Blast Cells % % Monocytes # (Manual) (0-1.0) k/uL Metamyelocytes # (Man) (0) k/uL Myelocytes # (Manual) (0) k/uL Blast Cells # (Man) (0) k/uL Carbon Dioxide 31 H (22-30) mmol/L BUN 21 H (7-17) mg/dL Creatinine 0.49 L (0.52-1.04) mg/dL Glucose 164 H (74-99) mg/dL POC Glucose (mg/dL) (75-99) mg/dL Albumin 3.2 L (3.5-5.0) g/dL Microbiology - Last 24 Hours (Table) 04/09/19 14:05 Blood Culture - Preliminary Blood No Growth after 72 hours Assessment and Plan Assessment: 1. Polyarthralgia of the right knee, right ankle and neck. X-ray of knee completed on 04/07/2019 showing no acute osseous abnormality chronic findings as described. Venous Doppler completed on 04/07/2099 showing no evidence for deep vein thrombosis in the right lower extremity. 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 Cervical spine x-ray completed showing no acute osseous ab normality identified. However lateral positioning is suboptimal. Multilevel degenerative change of the cervical spine with mild to moderate osseous foraminal narrowing of C5 to C6 and C6 to C7. Right ankle x-ray completed showing osteoarthritis, soft tissue swelling and osteopenia plantar calcaneal spur evidence of remote trauma. Patient started on Solu-Medrol 60 mg every 6 hours. Per orthopedic services recommend taper steroids upon discharge no need for immobilization at this time continue gentle range of motion exercises and weightbearing as tolerated patient has follow-up appointment with Dr. Caro on april 17. 2. febrile. Infectious [place] following. Patient started Rocephin cultures pending. ESR elevated at 112 and CRP elevated 227.9. Chest x-ray completed showing no acute process. Blood and urine cultures ordered. Per infectious disease recommending patient DC'd on Keflex at time of discharge 3. Abnormal CBC. Blast cells critically high at 7. Patient is status post bone marrow biopsy 4. History of diabetes mellitus. Home meds resumed. Hemoglobin A1c 7.3. Sliding scale insulin added 5. History of hyperlipidemia 6. History of essential hypertension 7. Vitamin D insufficiency: Vitamin D 25-hydroxy level 29. Start vitamin D3 400 international units daily 8. Anemia: No active signs of bleeding. Check iron studies. Await further workup per hematology DvT prophylaxis heparin. GI prophylaxis Protonix Anticipating discharge to [facility] tomorrow with prednisone taper and Keflex I performed an examination of the patient and discussed their management with the physician Forensic Identification Specialist. I have reviewed the Physician Forensic Identification Specialist's notes and agree with the documented findings and plan of care
[2019-04-13 12:09] LABS: Glucose,Whole Blood 225 mg/dL (75-99)
[2019-04-13] MEDS: CHOLECALCIFEROL 400 UNIT TAB PO SCH (12:53)
--- NOTE | 2019-04-13 14:20 | PN ---
PROGRESS NOTE DATE OF SERVICE: 04/13/2019 REASON FOR FOLLOWUP: Fever and a question of cellulitis. INTERVAL HISTORY: The patient is currently afebrile. Patient has been breathing comfortably. Denies having any chest pain or any cough. The right foot pain and swelling has improved. No nausea, vomiting. No abdominal pain or diarrhea. PHYSICAL EXAMINATION: On examination, blood pressure 112/75 with a pulse of 70 temperature 97.7. She is 98% on room air. General description is an elderly female lying in bed in no distress. RESPIRATORY SYSTEM: Unlabored breathing clear to auscultation anteriorly. HEART: S1, S2. Regular rate and rhythm. ABDOMEN: Soft, no tenderness. Right foot currently with no redness or open wound. LABS: Hemoglobin is 9.1, white count 6.0, BUN of 21, creatinine 0.49. Cultures have been negative. DIAGNOSTIC IMPRESSION AND PLAN: Patient admitted to the hospital with pain in the right knee and ankle area. She did have one fever, but no fever , white count normal. Cultures have been negative. Currently on Rocephin to transition to short course of oral Ceftin for about a week to finish course of therapy with close outpatient followup. Continue supportive care. MMODL / IJN: [id number] /
[2019-04-13 16:54] LABS: Glucose,Whole Blood 172 mg/dL (75-99)
--- NOTE | 2019-04-13 17:44 | P.PN ---
Subjective Progress Note Date: 04/13/19 The patient was seen during the bone marrow biopsy, and subsequently. She denied any new complaints such as fever/chills/nausea/vomiting. Overall she feels better. Joint swelling is still persistent but improved Objective - Vital Signs Vital signs: Vital Signs Temp 97.6 F 04/13/19 15:00 Pulse 85 04/13/19 15:00 Resp 16 04/13/19 15:14 BP 127/73 04/13/19 15:00 Pulse Ox 95 04/13/19 15:00 Intake & Output 04/12/19 04/13/19 04/13/19 18:59 06:59 18:59 Intake Total 600 Balance 600 Intake: IV 200 Oral 400 Other: Voiding Method Incontinent Bedside Commode # Voids 1 1 1 # Bowel Movements 1 0 0 - Constitutional General appearance: Present: no acute distress - EENT Eyes: Present: EOMI ENT: Present: hearing grossly normal, normal oropharynx - Respiratory Respiratory: bilateral: CTA - Cardiovascular Rhythm: regular Heart sounds: normal: S1, S2 - Gastrointestinal General gastrointestinal: Present: normal bowel sounds, soft - Integumentary Integumentary: Present: normal - Neurologic Neurologic: Present: CNII-XII intact - Musculoskeletal Musculoskeletal: Present: generalized weakness, strength equal bilaterally - Labs CBC & Chem 7: 04/13/19 08:09 04/13/19 08:09 Labs: Abnormal Lab Results - Last 24 Hours (Table) 04/12/19 04/13/19 04/13/19 Range/Units 20:35 07:45 08:09 RBC 2.90 L (3.80-5.40) m/uL Hgb 9.1 L D (11.4-16.0) gm/dL Hct 27.5 L (34.0-46.0) % Blast Cells % 3 H* % Metamyelocytes # (Man) 0.06 H (0) k/uL Myelocytes # (Manual) 0.06 H (0) k/uL Blast Cells # (Man) 0.18 H (0) k/uL Carbon Dioxide (22-30) mmol/L BUN (7-17) mg/dL Creatinine (0.52-1.04) mg/dL Glucose (74-99) mg/dL POC Glucose (mg/dL) 216 H 178 H (75-99) mg/dL Albumin (3.5-5.0) g/dL 04/13/19 04/13/19 04/13/19 Range/Units 08:09 12:08 16:50 RBC (3.80-5.40) m/uL Hgb (11.4-16.0) gm/dL Hct (34.0-46.0) % Blast Cells % % Metamyelocytes # (Man) (0) k/uL Myelocytes # (Manual) (0) k/uL Blast Cells # (Man) (0) k/uL Carbon Dioxide 31 H (22-30) mmol/L BUN 21 H (7-17) mg/dL Creatinine 0.49 L (0.52-1.04) mg/dL Glucose 164 H (74-99) mg/dL POC Glucose (mg/dL) 225 H 172 H (75-99) mg/dL Albumin 3.2 L (3.5-5.0) g/dL Microbiology - Last 24 Hours (Table) 04/09/19 14:05 Blood Culture - Preliminary Blood No Growth after 96 hours Assessment and Plan (1) Abnormal CBC Narrative/Plan: The CBC continues to be persistently abnormal but stable. The patient has elevated monocytes, with a small percentage of blasts. Platelets and total WBC number are normal. Hemoglobin is only mildly reduced. - The patient underwent a bone marrow aspiration biopsy for further workup whic h she tolerated well. - Await results. It was discussed with the patient that based on the clinical picture, a chronic myeloproliferative disorder with a temporary left shift due to her joint inflammation is probably the main differential in my opinion. However a chronic MPD with ongoing transformation cannot be ruled out. Further recommendations based on bone marrow results. Counts are stable in a safe range. Therefore no other acute intervention is currently required Current Visit: Yes Status: Acute Priority: High Code(s): R79.89 - OTHER SPECIFIED ABNORMAL FINDINGS OF BLOOD CHEMISTRY SNOMED Code(s): 094260075 Plan: Defer to the admitting service and other consultants for management of other medical problems. From our standpoint patient can be discharged whenever felt to be okay with the admitting service and other consultants. Follow-up in the outpatient setting, once bone marrow results are available
[2019-04-13 18:09] LABS: Iron Saturation 77.6 (12.00-45.00)
[2019-04-13 20:30] LABS: Glucose,Whole Blood 171 mg/dL (75-99)
[2019-04-13 21:16] VITALS: RESP 18; TEMP 97.5
[2019-04-14] MEDS: LACTATED RINGERS 1,000 ML IV SCH (04:23)
[2019-04-14 04:47] VITALS: BP 175/75; PULSE 71
[2019-04-14 07:06] LABS: Glucose,Whole Blood 181 mg/dL (75-99)
[2019-04-14] MEDS: INSULIN ASPART (NovoLOG) 100 UNIT/ML VIAL SQ SCH (08:00)
[2019-04-14] MEDS: LISINOPRIL-HCTZ 10-12.5 MG 1 EACH TAB PO SCH (08:00)
[2019-04-14] MEDS: HEPARIN SODIUM,PORCINE 5,000 UNIT/ML 1 ML VIAL SQ SCH (08:00)
[2019-04-14] MEDS: PANTOPRAZOLE 40 MG TABLET PO SCH (08:00)
[2019-04-14] MEDS: metFORMIN 500 MG TAB PO SCH (08:01)
[2019-04-14] MEDS: CHOLECALCIFEROL 400 UNIT TAB PO SCH (08:01)
[2019-04-14] MEDS: PRAVASTATIN SODIUM 20 MG TAB PO SCH (08:01)
[2019-04-14] MEDS: CITALOPRAM HYDROBROMIDE 20 MG TAB PO SCH (08:01)
[2019-04-14] MEDS: methylPREDNISolone SOD SUCCI 125 MG/2 ML VIAL IV SCH (08:02)
[2019-04-14 08:29] LABS: HCT 29.1 % (34.0-46.0); HGB 9.2 gm/dL (11.4-16.0); MCH 30.5 pg (25.0-35.0); MCHC 31.7 g/dL (31.0-37.0); MCV 96.4 fL (80.0-100.0); Mean Platelet Volume 14.3; Platelet Count 158 k/uL (150-450); RBC 3.02 m/uL (3.80-5.40); RDW 15.3 % (11.5-15.5); WBC 4.8 k/uL (3.8-10.6)
[2019-04-14 08:44] LABS: ALT 15 U/L (9-52); AST 16 U/L (14-36); African American GFR (CKD) >90 (>60 ml/min/1.73 sqM); Albumin 3.3 g/dL (3.5-5.0); Alkaline Phosphatase 80 U/L (38-126); Anion Gap 9 mmol/L; Blood Urea Nitrogen 19 mg/dL (7-17); Calcium 8.8 mg/dL (8.4-10.2); Carbon Dioxide 29 mmol/L (22-30); Chloride 102 mmol/L (98-107); Glucose 171 mg/dL (74-99); Potassium 4.8 mmol/L (3.5-5.1); Sodium 140 mmol/L (137-145); Total Bilirubin 0.3 mg/dL (0.2-1.3); Total Protein 7.1 g/dL (6.3-8.2)
--- NOTE | 2019-04-14 08:44 | P.DS ---
Providers Date of admission: 04/11/19 10:15 Expected date of discharge: 04/14/19 Attending physician: Chris Galeana Consults: 04/09/19 16:35 Consult Physician Routine Consulting Provider: Yaron Llanos Consult Reason/Comments: Abnormal peripheral smear; Fever; Polyarthralgia Do you want consulting provider notified?: Yes 04/10/19 10:26 Consult Physician Routine Consulting Provider: Bre Barksdale Consult Reason/Comments: multiple joint pain Do you want consulting provider notified?: Yes Consult Physician Routine Consulting Provider: Michaela Estevez Consult Reason/Comments: Fever with multiple joint pain Do you want consulting provider notified?: Yes 04/11/19 09:58 Consult Physician Routine Consulting Provider: Efra Mclaughlin Consult Reason/Comments: right knee and ankle pain. r/o septic arthritis Do you want consulting provider notified?: Yes Primary care physician: Kat Fox Hospital Course: Discharge Diagnosis: Polyarthralgia, with possible rheumatoid arthritis Fever with undetermined origin Abnormal CBC with blast and monocytes-bone marrow biopsy pending Diabetes mellitus with A1c 7.3 Dyslipidemia Hypertension Vitamin D deficiency Morbid obesity with BMI 38.8 Hospital Course: Patient is a 64-year-old female patient of Dr. Fox with a past medical history of diabetes mellitus, hyperlipidemia, and hypertension who presented to the hospital with complaints of knee pain, neck pain, and right ankle pain. Patient reports that the knee pain started and she noted increased swelling. She received outpatient injections and the pain got better but then it started again, she also received injections for her neck pain but it the pain has returned. She has been unable to ambulate secondary to her knee pain. On arrival here she is on have an elevated temperature of 100.2, CBC showed a increase in blast cells and monocytes. She was seen by oncology and had a bone marrow biopsy done and results are pending at time of discharge. She was seen by rheumatology and had an elevated ESR, CRP, and elevated rheumatoid factor. They recommended outpatient follow-up. She was seen by orthopedics who recommended steroid taper. She was seen by infectious disease due to her fevers. Urinalysis, chest x-ray, and blood cultures were all negative. She was maintained on Rocephin during her hospital stay and they recommended a course of Ceftin for 7 days on discharge. Patient was feeling better and her joint pain had significantly improved throughout her hospital stay with the use of steroids. Arrangements were made for her to go to medical [facility] for rehab. She'll follow up with Dr. Yoon in 1 week, Dr. Caro on April 17, Dr. Estevez in 1 week, and Mrs. Jodie MEDEIROS in 1 week. Patient seen and examined at bedside.Pain greatly improved. No chest pain, shortness of breath, or nausea. Vital signs reviewed and stable. General: non toxic, no distress, appears at stated age, obese Derm: warm, dry Head: atraumatic, normocephalic, symmetric Eyes: EOMI, no lid lag, anicteric sclera Mouth: no lip lesion, mucus membranes moist Cardiovascular: S1S2 reg, no murmur, positive posterior tibial pulse bilateral, Lungs: CTA bilateral, no rhonchi, no rales , no accessory muscle use Abdominal: soft, nontender to palpation, no guarding, no appreciable organomegaly Ext: no gross muscle atrophy, no edema, no contractures Neuro: CN II-XI grossly intact, no focal neuro deficits Psych: Alert, oriented, appropriate affect A total of 35 minutes of time were spent preparing this complex discharge summary . Pertinent Studies: Right ankle [id number], soft tissue swelling, and plantar calcaneal spur, evidence of remote trauma Chest x-ray-no acute process Patient Condition at Discharge: Stable Plan - Discharge Summary New Discharge Prescriptions: New HYDROcodone/APAP 7.5-325MG [Madison 7.5-325] 1 each PO Q6H PRN #28 tab PRN Reason: Pain predniSONE 0 mg PO DIRECTED #25 tab Acetaminophen Tab [Tylenol] 650 mg PO Q6HR PRN tab PRN Reason: Mild Pain Or Fever > 100.5 Cholecalciferol [Vitamin D3] 400 unit PO DAILY tab Cefuroxime Axetil [Ceftin] 500 mg PO BID #14 tab INSULIN ASPART (NovoLOG) [NovoLOG (formulary)] 0 unit SQ ACHS vial Continue diphenhydrAMINE [Benadryl] 25 mg PO HS PRN PRN Reason: Shortness Of Breath Lisinopril-Hctz 10-12.5 mg [Zestoretic 10-12.5] 1 tab PO DAILY metFORMIN HCL [Glucophage] 500 mg PO BID Pravastatin Sodium [Pravachol] 10 mg PO DAILY Citalopram Hydrobromide [Citalopram HBr] 40 mg PO DAILY Methocarbamol [Robaxin] 500 mg PO DAILY PRN #7 tab PRN Reason: Pain Discontinued Acetaminophen with Codeine [Tylenol w/codeine #3] 1 tab PO Q6H PRN 3 Days #12 tab PRN Reason: Severe Pain Ibuprofen [Motrin Ib] 400 mg PO Q6H PRN PRN Reason: Pain Discharge Medication List Citalopram Hydrobromide [Citalopram HBr] 40 mg PO DAILY 04/06/19 [History] Lisinopril-Hctz 10-12.5 mg [Zestoretic 10-12.5] 1 tab PO DAILY 04/06/19 [History] Pravastatin Sodium [Pravachol] 10 mg PO DAILY 04/06/19 [History] diphenhydrAMINE [Benadryl] 25 mg PO HS PRN 04/06/19 [History] metFORMIN HCL [Glucophage] 500 mg PO BID 04/06/19 [History] Acetaminophen Tab [Tylenol] 650 mg PO Q6HR PRN tab 04/14/19 [Rx] Cefuroxime Axetil [Ceftin] 500 mg PO BID #14 tab 04/14/19 [Rx] Cholecalciferol [Vitamin D3] 400 unit PO DAILY tab 04/14/19 [Rx] HYDROcodone/APAP 7.5-325MG [Madison 7.5-325] 1 each PO Q6H PRN #28 tab 04/14/19 [Rx] INSULIN ASPART (NovoLOG) [NovoLOG (formulary)] 0 unit SQ ACHS vial 04/14/19 [Rx] Methocarbamol [Robaxin] 500 mg PO DAILY PRN #7 tab 04/14/19 [Rx] predniSONE 0 mg PO DIRECTED #25 tab 04/14/19 [Rx] Follow up Appointment(s)/Referral(s): Deny Caro MD [STAFF PHYSICIAN] - 04/17/19 8:15 am Do Feliciano PAC [PHYSICIAN SALES DEPARTMENT CLERK] - 1 Week Michaela Estevez MD [STAFF PHYSICIAN] - 1 Week Yaron Llanos MD [STAFF PHYSICIAN] - 1 Week (bone marrow biopsy ?) Activity/Diet/Wound Care/Special Instructions: Diet: carb consistent Activity: as tolerated Pending Studies Pending Results: Bone marrow biopsy
[2019-04-14 09:38] LABS: Band Neutrophils % 1 %; Lymphocytes # (M) 2.54 k/uL (1.0-4.8); Monocytes # (M) 0.38 k/uL (0-1.0); Neutrophils % (M) 37 %
[2019-04-14 09:39] LABS: Nucleated Red Blood Cells 0 /100 WBC (0-0); Poikilocytosis (M) Present; Rouleaux Present; Total Cells Counted 200
--- NOTE | 2019-04-19 14:59 | CDI ---
Documentation Clarification Form Date: 04/19/2019 2:56:00 PM From: Chica Reilly Phone: If questions call Mary Velasco @ [phone], Hours-8:30 am & 5 pm Taina Adams Admit Date: 04/11/2019 10:15:00 AM Patient Name: Mey Hernandez Visit Number: [id number] Discharge Date: 04/14/2019 10:18:00 AM ATTENTION: The Clinical Documentation Specialists (CDI) and [facility] Coding Staff appreciate your assistance in clarifying documentation. Please respond to the clarification below the line at the bottom and electronically sign. The CDI & [facility] Coding staff will review the response and follow-up if needed. Please note: Queries are made part of the Legal Health Record. If you have any questions, please contact the author of this message via ITS. Dr. Ksenia Stafford The patient presented with knee pain, neck pain and right ankle pain. She developed temperature of 100.2 on 04/09. CBC showed increase in blast cells and monocytes. Elevated ESR, CRP and rheumatoid factor.Bone marrow biopsy was done. Bone marrow results: acute myeloid leukemia History/Risk Factors: /dM, hyperlipidemia, HTN, morbid obesity Consults: infectious disease, bar tacker, orthopedic, rheumatology Treatment: Minerva, prednisone 1. In your professional opinion, can you please clarify if you agree with the path report: acute myeloid leukemia and if the cause of the patient's pain? Yes No Other, please specify Unable to determine yes agree with acute myeloid leukemia, but this report was not available at time of discharge MTDD
== END 2019-04-14 10:18 | DRG 836 ==
LOC: EC 12:00 → 4MS4W 16:08 → OBSVTOIN 04-11 10:15
PROVIDERS: ADMIT Internal Medicine; ATTEND Internal Medicine
PROC: 07DR3ZX Extraction of Iliac Bone Marrow, Percutaneous Approach, Diagnostic (ICD-10-PCS; principal; 2019-04-13 07:00)
DX: C92.00 Acute myeloblastic leukemia, not having achieved remission (principal); M06.9 Rheumatoid arthritis, unspecified; M48.02 Spinal stenosis, cervical region; E66.01 Morbid (severe) obesity due to excess calories; E55.9 Vitamin D deficiency, unspecified; Z68.38 Body mass index [BMI] 38.0-38.9, adult; E11.9 Type 2 diabetes mellitus without complications; I10 Essential (primary) hypertension; E78.5 Hyperlipidemia, unspecified; M17.11 Unilateral primary osteoarthritis, right knee; M50.322 Other cervical disc degeneration at C5-C6 level; M71.21 Synovial cyst of popliteal space [Baker], right knee; M85.80 Other specified disorders of bone density and structure, unspecified site; M77.31 Calcaneal spur, right foot; R32 Unspecified urinary incontinence; Z79.84 Long term (current) use of oral hypoglycemic drugs; Z79.899 Other long term (current) drug therapy; Z87.891 Personal history of nicotine dependence; Z91.040 Latex allergy status; Z80.3 Family history of malignant neoplasm of breast; Z80.0 Family history of malignant neoplasm of digestive organs
CPT/HCPCS: 36415; 38222; 71046; 80053; 81003; 82164; 82306; 82550; 82728; 83036; 83540; 83550; 83605; 84550; 85025; 85610; 85652; 85730; 86038; 86140; 86200; 86431; 86812; 87040; 87086; 96374; 96375; 99284

== ENCOUNTER 2019-05-07 07:30 | Inpatient (IN) | payer MEDICARE ==
[2019-05-07 08:56] LABS: INR 1.2 (<1.2); Prothrombin Time 12.1 sec (9.0-12.0)
[2019-05-07 09:05] LABS: ALT <6 U/L (9-52); AST 17 U/L (14-36); African American GFR (CKD) 89 (>60 ml/min/1.73 sqM); Albumin 3.5 g/dL (3.5-5.0); Alkaline Phosphatase 87 U/L (38-126); Anion Gap 8 mmol/L; Blood Urea Nitrogen 16 mg/dL (7-17); Calcium 8.8 mg/dL (8.4-10.2); Carbon Dioxide 27 mmol/L (22-30); Chloride 103 mmol/L (98-107); Glucose 131 mg/dL (74-99); Phosphorus 4.5 mg/dL (2.5-4.5); Potassium 4.6 mmol/L (3.5-5.1); Sodium 138 mmol/L (137-145); Total Bilirubin 0.4 mg/dL (0.2-1.3); Total Protein 7.9 g/dL (6.3-8.2); Uric Acid 7.4 mg/dL (3.7-7.4)
[2019-05-07 09:18] LABS: HCT 22.7 % (34.0-46.0); MCH 30.8 pg (25.0-35.0); MCHC 31.2 g/dL (31.0-37.0); MCV 98.7 fL (80.0-100.0); Macrocytosis Slight; Platelet Count 108 k/uL (150-450); RDW 15.7 % (11.5-15.5)
[2019-05-07] MEDS ORDERED: LIDOCAINE 1% INJ 10MG/ML (20 ML MDV) SQ ONE (09:38)
[2019-05-07 09:39] LABS: HGB 7.1 gm/dL (11.4-16.0)
--- NOTE | 2019-05-07 09:56 | ECHOF ---
Referral Reason:chemotherapy pre test MEASUREMENTS -------- HEIGHT: 162.6 cm WEIGHT: 98.0 kg BP: IVSd: 1.2 cm (0.6 - 1.1) LVIDd: 3.4 cm (3.9 - 5.3) LVPWd: 1.2 cm (0.6 - 1.1) IVSs: 1.3 cm LVIDs: 2.4 cm LVPWs: 1.5 cm LAESV Index (A-L): 38.58 ml/m Ao Diam: 3.1 cm (2.0 - 3.7) AV Cusp: 1.7 cm (1.5 - 2.6) LA Diam: 3.7 cm (2.7 - 3.8) MV E Arthur: 0.94 m/s MV DecT: 287 ms MV A Arthur: 1.17 m/s MV E/A Ratio: 0.80 RAP: 5.00 mmHg RVSP: 33.47 mmHg FINDINGS -------- Sinus rhythm. This was a technically difficult study with suboptimal views. The left ventricular size is normal. There is mild concentric left ventricular hypertrophy. Overa ll left ventricular systolic function is normal with, an EF between 60 - 65 %. Mitral Doppler inflo w pattern suggests diastolic filling abnormality. The RV was not well visualized. Left atrium is moderately dilated by volume. The right atrium was not well visualized. Lumason used Interatrial and interventricular septum intact. There is no evidence of aortic regurgitation. There is no evidence of aortic stenosis. No mitral regurgitation. Right ventricular systolic pressure is normal at < 35 mmHg. There is no evidence of pulmonary hyper tension. The right ventricular systolic pressure, as measured by Doppler, is 33.47mmHg. There is no pulmonic regurgitation present. The aortic root size is normal. The inferior vena cava was not well visualized. There is no pericardial effusion. CONCLUSIONS -------- 1. Sinus rhythm. 2. This was a technically difficult study with suboptimal views. 3. The left ventricular size is normal. 4. There is mild concentric left ventricular hypertrophy. 5. Overall left ventricular systolic function is normal with, an EF between 60 - 65 %. 6. Mitral Doppler inflow pattern suggests diastolic filling abnormality. 7. The RV was not well visualized. 8. The right atrium was not well visualized. 9. Lumason used 10. Interatrial and interventricular septum intact. 11. There is no evidence of aortic regurgitation. 12. There is no evidence of aortic stenosis. 13. No mitral regurgitation. 14. Right ventricular systolic pressure is normal at < 35 mmHg. 15. There is no evidence of pulmonary hypertension. 16. The right ventricular systolic pressure, as measured by Doppler, is 33.47mmHg. 17. There is no pulmonic regurgitation present. 18. The aortic root size is normal. 19. The inferior vena cava was not well visualized. 20. There is no pericardial effusion. VENDER: Tammy Leiva RDCS
[2019-05-07 11:10] LABS: Blast Cells # (M) 3.73 k/uL (0); Eosinophils # (M) 0.23 k/uL (0-0.7); Lymphocytes # (M) 6.52 k/uL (1.0-4.8); Metamyelocytes # (M) 0.23 k/uL (0); Metamyelocytes % 1 %; Monocytes # (M) 11.42 k/uL (0-1.0); Neutrophils % (M) 6 %; Nucleated Red Blood Cells 1 /100 WBC (0-0); Total Cells Counted 200; WBC 23.3 k/uL (3.8-10.6)
[2019-05-07] MEDS ORDERED: METHOCARBAMOL 500 MG TAB PO PRN (11:10)
[2019-05-07] MEDS ORDERED: diphenhydrAMINE 25 MG CAP PO PRN (11:10)
[2019-05-07 11:11] LABS: Poikilocytosis (M) Present; Rouleaux Present
--- NOTE | 2019-05-07 11:23 | P.CONS ---
History of Present Illness - Reason for Consult Consult date: 05/07/19 Medical management Requesting physician: Francisco Carson - Chief Complaint inpatient chemotherapy - History of Present Illness This is a 64-year-old patient of Dr. miller. Patient presents for inpatient chemotherapy admitted to oncology services. Patient was recently admitted on 04/10/2019 for multiple joint swelling along with abnormal CBC with increased blastocyte. Patient underwent but bone marrow aspiration biopsy on 04/13/2019. Per oncology service is findings consistent with acute myeloid leukemia. Additional medical history includes diabetes mellitus, hyperlipidemia and hypertension. Patient had PICC line placed to receive chemotherapy. Patient planning first round of chemotherapy today patient will require hospitalization for 7 days. This time patient denies any chest pain or shortness breath. Patient denies nausea vomiting or diarrhea. Patient denies any urinary burning or frequency. She does reports she still having chronic pain due to multiple joint swelling. 2-D echo completed showing EF of 60-65%. Review of Systems please refer to HPI otherwise unremarkable Past Medical History Past Medical History: Cancer, Diabetes Mellitus, Hyperlipidemia, Hypertension Additional Past Medical History / Comment(s): AML diagnosed 03/2019. chemo 05/07/2019 History of Any Multi-Drug Resistant Organisms: None Reported Past Surgical History: No Surgical Hx Reported Past Psychological History: No Psychological Hx Reported Smoking Status: Never smoker Past Alcohol Use History: None Reported Past Drug Use History: None Reported - Past Family History Mother Family Medical History: Cancer Medications and Allergies Home Medications Medication Instructions Recorded Confirmed Type Citalopram Hydrobromide 40 mg PO DAILY 04/06/19 05/07/19 History [Citalopram HBr] Lisinopril-Hctz 10-12.5 mg 1 tab PO DAILY 04/06/19 05/07/19 History [Zestoretic 10-12.5] Pravastatin Sodium [Pravachol] 10 mg PO DAILY 04/06/19 05/07/19 History diphenhydrAMINE [Benadryl] 25 mg PO HS PRN 04/06/19 05/07/19 History Acetaminophen Tab [Tylenol] 650 mg PO Q6HR PRN tab 04/14/19 05/07/19 Rx Cholecalciferol [Vitamin D3] 400 unit PO DAILY tab 04/14/19 05/07/19 Rx Acetaminophen-Codeine 300-30mg 1 tab PO Q6H PRN 05/07/19 05/07/19 History [Tylenol w/codeine #3] Methocarbamol [Robaxin] 500 - 1,000 mg PO Q8H PRN 05/07/19 05/07/19 History Naproxen Sodium [Aleve] 220 mg PO BID 05/07/19 05/07/19 History metFORMIN HCL [Glucophage] 500 mg PO BID 05/07/19 05/07/19 History Allergies Allergy/AdvReac Type Severity Reaction Status Date / Time latex Allergy Rash/Hives Verified 05/07/19 11:08 Physical Exam Vitals: Vital Signs Temp Pulse Resp BP Pulse Ox 05/07/19 08:35 98.1 F 90 17 127/62 95 Intake and Output 05/06/19 05/07/19 05/07/19 22:59 06:59 14:59 Other: Weight 97.522 kg Head normocephalic Neck supple Lungs clear to auscultation bilaterally no wheezing or crackles Heart regular rate and rhythm S1-S2, no rub or gallop Abdomen is soft nontender nondistended positive bowel sounds no hepatosplenomegaly Extremities no edema. Bilateral leg boots in place Neuro alert and orientated to 3 Results CBC & Chem 7: 05/07/19 08:32 05/07/19 08:32 Labs: Abnormal Lab Results - Last 24 Hours (Table) 05/07/19 05/07/19 Range/Units 08:32 08:32 RBC 2.30 L (3.80-5.40) m/uL Hgb 7.1 L D (11.4-16.0) gm/dL Hct 22.7 L (34.0-46.0) % RDW 15.7 H (11.5-15.5) % Plt Count 108 L (150-450) k/uL Glucose 131 H (74-99) mg/dL ALT <6 L (9-52) U/L Assessment and Plan Assessment: 1. Acute myeloid leukemia. Patient remained for inpatient chemotherapy. Patient admitted to oncology services 2. Multiple joint pain due to acute myeloid leukemia. Home meds resumed 3. History of essential hypertension 4. Diabetes mellitus. Metformin reordered sliding scale insulin at that 5. History of hyperlipidemia Thank you for this consultation we will continue to follow patient closely throughout stay Time with Patient: Greater than 30 (Greater than 60% of the total time spent in counseling and coordination of care. I performed an examination of the patient and discussed their management with the Nurse Practitioner. I have reviewed the Nurse Practitioner's notes and agree with the documented findings and plan of care)
[2019-05-07] MEDS: SODIUM CHLORIDE 0.9% 1,000 ML IV SCH ×2 (11:29→21:16)
[2019-05-07] MEDS: SALT AND SODA MOUTHWASH 1,000 ML PO SCH ×4 (11:29→21:17)
[2019-05-07 11:41] LABS: Glucose,Whole Blood 122 mg/dL (75-99)
[2019-05-07] MEDS: INSULIN ASPART (NovoLOG) 100 UNIT/ML VIAL SQ SCH ×3 (12:15→21:17)
[2019-05-07] MEDS: DEXAMETHASONE SOD PHOSPHATE 10 MG/ML 1 ML VIAL IV SCH (14:08)
[2019-05-07] MEDS: ONDANSETRON 16 MG in SODIUM CHLORIDE 0.9% 50 ML IVPB SCH (14:08)
[2019-05-07] MEDS: FAMOTIDINE 20 MG/2 ML VIAL IV SCH (14:08)
[2019-05-07] MEDS: ALLOPURINOL 300 MG TAB PO SCH (14:22)
[2019-05-07] MEDS: Acetaminophen-Codeine 300-30mg TAB PO PRN (14:22)
[2019-05-07] MEDS: DAUNORUBICIN IV SCH (15:25)
[2019-05-07] MEDS: CYTARABINE IV SCH (15:26)
[2019-05-07] MEDS: SODIUM CHLORIDE 0.9% IV SCH (15:26)
[2019-05-07 17:08] LABS: Glucose,Whole Blood 158 mg/dL (75-99)
--- NOTE | 2019-05-07 18:43 | P.HPIM ---
History of Present Illness H&P Date: 05/07/19 Ms Hernandez is a pleasant lady, initially seen in consult at [facility] on 04/10/19. The patient did come in because of progressive pain and swelling in her right ankle, right knee, both shoulders and neck starting about 2 weeks ago. The patient had a history of fibroid blood cell count for several years but denied any further knowledge about it. Actually on admission her white count was noted to be 6.8, with hemoglobin of 10.7 and platelets 137. The peripheral smear however was abnormal showing increased monocytes as well as metamyelocytes and myelocytes and blasts. The patient was seen by rheumatology for her joint swelling with workup for overall negative. S he underwent a bone marrow aspiration biopsy on 04/13/19 because of persistence of blasts in the peripheral smear, confirmed on flow cytometric. Bone marrow for 10% myeloblasts, along with 16% monocytic cells most of which were immature (promyelocytes/monoblasts). Therefore the finding was felt to be consistent with acute myeloid leukemia, favoring ELLA M4. The patient cytogenetics were negative. 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 She was seen for her first office visit on 05/04/19. Induction chemotherapy with a 7+3 regimen was recommended. She is being admitted for the same. Review of Systems Constitutional: Reports fatigue, Reports poor appetite Eyes: denies blurred vision, denies pain Ears: deny: decreased hearing, ear discharge, earache, tinnitus Ears, nose, mouth and throat: Denies headache, Denies sore throat Cardiovascular: Reports decreased exercise tolerance Respiratory: Reports dyspnea Gastrointestinal: Denies abdominal pain, Denies diarrhea, Denies nausea, Denies vomiting Genitourinary: Denies dysuria, Denies hematuria Menstruation: Reports postmenopausal Musculoskeletal: bilateral: ankle pain, knee pain Integumentary: Denies pruritus, Denies rash Neurological: Reports weakness Psychiatric: Denies anxiety, Denies depression Endocrine: Reports fatigue Hematologic/Lymphatic: Reports as per HPI Past Medical History Past Medical History: Cancer, Diabetes Mellitus, Hyperlipidemia, Hypertension Additional Past Medical History / Comment(s): AML diagnosed 03/2019. chemo 2018 History of Any Multi-Drug Resistant Organisms: None Reported Past Surgical History: No Surgical Hx Reported Past Psychological History: No Psychological Hx Reported Smoking Status: Never smoker Past Alcohol Use History: None Reported Past Drug Use History: None Reported - Past Family History Mother Family Medical History: Cancer Medications and Allergies Home Medications Medication Instructions Recorded Confirmed Type Citalopram Hydrobromide 40 mg PO DAILY 04/06/19 05/07/19 History [Citalopram HBr] Lisinopril-Hctz 10-12.5 mg 1 tab PO DAILY 04/06/19 05/07/19 History [Zestoretic 10-12.5] Pravastatin Sodium [Pravachol] 10 mg PO DAILY 04/06/19 05/07/19 History diphenhydrAMINE [Benadryl] 25 mg PO HS PRN 04/06/19 05/07/19 History Acetaminophen Tab [Tylenol] 650 mg PO Q6HR PRN tab 04/14/19 05/07/19 Rx Cholecalciferol [Vitamin D3] 400 unit PO DAILY tab 04/14/19 05/07/19 Rx Acetaminophen-Codeine 300-30mg 1 tab PO Q6H PRN 05/07/19 05/07/19 History [Tylenol w/codeine #3] Methocarbamol [Robaxin] 500 - 1,000 mg PO Q8H PRN 05/07/19 05/07/19 History Naproxen Sodium [Aleve] 220 mg PO BID 05/07/19 05/07/19 History metFORMIN HCL [Glucophage] 500 mg PO BID 05/07/19 05/07/19 History Allergies Allergy/AdvReac Type Severity Reaction Status Date / Time latex Allergy Rash/Hives Verified 05/07/19 11:08 Physical Exam Vitals: Vital Signs Temp Pulse Resp BP Pulse Ox 05/07/19 11:53 98 F 84 17 110/65 97 05/07/19 08:35 98.1 F 90 17 127/62 95 Intake and Output 05/06/19 05/07/19 05/07/19 22:59 06:59 14:59 Other: Weight 97.522 kg - Constitutional General appearance: no acute distress - EENT Eyes: EOMI, PERRLA ENT: hearing grossly normal, normal oropharynx - Neck Neck: no lymphadenopathy Thyroid: bilateral: normal size - Respiratory Respiratory: bilateral: CTA - Cardiovascular Rhythm: regular Heart sounds: normal: S1, S2 - Gastrointestinal General gastrointestinal: normal bowel sounds, soft - Integumentary Integumentary: normal - Neurologic Neurologic: CNII-XII intact - Musculoskeletal b/l feet in walking boots - Psychiatric Psychiatric: A&O x's 3, appropriate affect Results CBC & Chem 7: 05/07/19 08:32 05/07/19 08:32 Labs: Abnormal Lab Results - Last 24 Hours (Table) 05/07/19 05/07/19 05/07/19 Range/Units 08:32 08:32 08:32 WBC 23.3 H (3.8-10.6) k/uL RBC 2.30 L (3.80-5.40) m/uL Hgb 7.1 L D (11.4-16.0) gm/dL Hct 22.7 L (34.0-46.0) % RDW 15.7 H (11.5-15.5) % Plt Count 108 L (150-450) k/uL Blast Cells % 16 H* % Lymphocytes # (Manual) 6.52 H (1.0-4.8) k/uL Monocytes # (Manual) 11.42 H (0-1.0) k/uL Metamyelocytes # (Man) 0.23 H (0) k/uL Blast Cells # (Man) 3.73 H (0) k/uL Nucleated RBCs 1 H (0-0) /100 WBC PT 12.1 H (9.0-12.0) sec INR 1.2 H (<1.2) Glucose 131 H (74-99) mg/dL POC Glucose (mg/dL) (75-99) mg/dL ALT <6 L (9-52) U/L 05/07/19 Range/Units 11:30 WBC (3.8-10.6) k/uL RBC (3.80-5.40) m/uL Hgb (11.4-16.0) gm/dL Hct (34.0-46.0) % RDW (11.5-15.5) % Plt Count (150-450) k/uL Blast Cells % % Lymphocytes # (Manual) (1.0-4.8) k/uL Monocytes # (Manual) (0-1.0) k/uL Metamyelocytes # (Man) (0) k/uL Blast Cells # (Man) (0) k/uL Nucleated RBCs (0-0) /100 WBC PT (9.0-12.0) sec INR (<1.2) Glucose (74-99) mg/dL POC Glucose (mg/dL) 122 H (75-99) mg/dL ALT (9-52) U/L Thrombosis Risk Factor Assmnt - DVT/VTE Prophylaxis DVT/VTE Prophylaxis: Mechanical Prophylaxis ordered Assessment and Plan (1) 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 Her counts were all in a safe range during her admission hospital admission. However since then leading up to this admission that has been a significant drop in her hemoglobin and platelets, as well as increase in WBC. The pathology and indications were discussed in detail with the patient in the office. She was advised that the standard of care would be induction chemotherapy with a 7+3 regimen. She is being admitted for the same. Chemotherapy logistics and side effects have been discussed in detail. The patient will be followed closely with physical exams, and labs which have been ordered. He is also on allopurinol for prevention of tumor lysis. Rasburicase will be utilized if there is development of active tumor lysis. Current Visit: Yes Status: Acute Code(s): C92.50 - ACUTE MYELOMONOCYTIC LEUKEMIA, NOT HAVING ACHIEVED REMISSION SNOMED Code(s): 086206943 (2) Polyarthralgia Narrative/Plan: The patient was assessed by orthopedic surgery and rheumatology during a previous admission with workup negative. She is currently symptomatically improved with bilateral walking boots. She will also be given Tylenol with Codeine for pain management. Given the clinical situation is felt that her joint complaints are likely related to her underlying malignancy, possibly through a cutout/pseudogout phenomenon, or even directly joint infiltration. Monitor response to induction chemotherapy. Current Visit: No Status: Acute Code(s): M25.50 - PAIN IN UNSPECIFIED JOINT SNOMED Code(s): 41288448 (3) Bicytopenia Narrative/Plan: Due to underlying AML. Counts were in a safe range today. Continue to monitor with supportive transfusions as needed. Irradiated blood products only to be utilized Current Visit: Yes Status: Acute Code(s): D75.89 - OTHER SPECIFIED DISEASES OF BLOOD AND BLOOD-FORMING ORGANS SNOMED Code(s): 15817179 Plan: Dr. Galeana's service has been consulted for medical management
[2019-05-07 20:35] LABS: Glucose,Whole Blood 232 mg/dL (75-99)
[2019-05-07] MEDS: metFORMIN 500 MG TAB PO SCH (21:17)
[2019-05-08] MEDS: Acetaminophen-Codeine 300-30mg TAB PO PRN ×2 (02:23→08:34)
[2019-05-08] MEDS: SODIUM CHLORIDE 0.9% 1,000 ML IV SCH ×3 (06:20→16:09)
[2019-05-08 07:16] LABS: Glucose,Whole Blood 168 mg/dL (75-99)
[2019-05-08] MEDS: INSULIN ASPART (NovoLOG) 100 UNIT/ML VIAL SQ SCH ×4 (08:33→21:13)
[2019-05-08] MEDS: CITALOPRAM HYDROBROMIDE 20 MG TAB PO SCH (08:33)
[2019-05-08] MEDS: metFORMIN 500 MG TAB PO SCH ×2 (08:34→21:14)
[2019-05-08] MEDS: ALLOPURINOL 300 MG TAB PO SCH (08:34)
[2019-05-08] MEDS: LISINOPRIL-HCTZ 10-12.5 MG 1 EACH TAB PO SCH (08:34)
[2019-05-08] MEDS: PRAVASTATIN SODIUM 20 MG TAB PO SCH (08:35)
[2019-05-08] MEDS: SALT AND SODA MOUTHWASH 1,000 ML PO SCH ×4 (08:35→21:14)
[2019-05-08] MEDS: CHOLECALCIFEROL 400 UNIT TAB PO SCH (08:35)
[2019-05-08 08:38] LABS: Albumin 3.1 g/dL (3.5-5.0); Calcium 7.9 mg/dL (8.4-10.2); Phosphorus 4.3 mg/dL (2.5-4.5); Total Bilirubin 0.3 mg/dL (0.2-1.3); Total Protein 7.1 g/dL (6.3-8.2)
[2019-05-08 08:45] LABS: Anisocytosis Slight; HCT 20.4 % (34.0-46.0); MCH 31.7 pg (25.0-35.0); MCV 95.9 fL (80.0-100.0); Mean Platelet Volume 13.4; RBC 2.13 m/uL (3.80-5.40); RDW 16.1 % (11.5-15.5)
[2019-05-08 08:58] LABS: HGB 6.7 gm/dL (11.4-16.0)
--- NOTE | 2019-05-08 10:29 | P.PN ---
Subjective Progress Note Date: 05/08/19 This is a 64-year-old patient of Dr. miller. Patient presents for inpatient chemotherapy admitted to oncology services. Patient was recently admitted on 04/10/2019 for multiple joint swelling along with abnormal CBC with increased blastocyte. Patient underwent but bone marrow aspiration biopsy on 04/13/2019. Per oncology service is findings consistent with acute myeloid leukemia. Additional medical history includes diabetes mellitus, hyperlipidemia and hypertension. Patient had PICC line placed to receive chemotherapy. Patient planning first round of chemotherapy today patient will require hospitalization for 7 days. This time patient denies any chest pain or shortness breath. Patient denies nausea vomiting or diarrhea. Patient denies any urinary burning or frequency. She does reports she still having chronic pain due to multiple joint swelling. 2-D echo completed showing EF of 60-65%. On 05/08/2019 patient underwent prescribed chemotherapy yesterday. Patient reports that she is feeling well. Small amount of nausea. Patient reports improvement with her joint discomfort. Patient denies any chest pain or shortness of breath patient denies nausea vomiting or diarrhea. Patient denies any urinary burning or frequency. Objective - Vital Signs Vital signs: Vital Signs Temp 96.5 F L 05/08/19 08:00 Pulse 97 05/08/19 08:00 Resp 16 05/08/19 08:00 BP 140/67 05/08/19 08:00 Pulse Ox 96 05/08/19 08:00 Intake & Output 05/07/19 05/08/19 05/08/19 18:59 06:59 18:59 Intake Total 1080 1617.5 Balance 1080 1617.5 Weight 97.522 kg 113.5 kg Intake: Intake, IV Titration 437.5 Amount Sodium Chloride 0.9% 1, 437.5 000 ml @ 125 mls/hr IV . Q8H [facility] Rx#:[id number] Oral 1080 1180 Other: Voiding Method Bedside Commode Bedside Commode Bedside Commode # Voids 2 2 - Exam Head normocephalic Neck supple Lungs clear to auscultation bilaterally no wheezing or crackles Heart regular rate and rhythm S1-S2, no rub or gallop Abdomen is soft nontender nondistended positive bowel sounds no hepato splenomegaly Extremities no edema. Bilateral leg boots in place Neuro alert and orientated to 3 - Labs CBC & Chem 7: 05/08/19 07:36 05/08/19 07:36 Labs: Abnormal Lab Results - Last 24 Hours (Table) 05/07/19 05/07/19 05/07/19 Range/Units 08:32 08:32 11:30 WBC 23.3 H (3.8-10.6) k/uL RBC (3.80-5.40) m/uL Hgb (11.4-16.0) gm/dL Hct (34.0-46.0) % RDW (11.5-15.5) % Blast Cells % 16 H* % Lymphocytes # (Manual) 6.52 H (1.0-4.8) k/uL Monocytes # (Manual) 11.42 H (0-1.0) k/uL Metamyelocytes # (Man) 0.23 H (0) k/uL Blast Cells # (Man) 3.73 H (0) k/uL Nucleated RBCs 1 H (0-0) /100 WBC PT 12.1 H (9.0-12.0) sec INR 1.2 H (<1.2) BUN (7-17) mg/dL Glucose (74-99) mg/dL POC Glucose (mg/dL) 122 H (75-99) mg/dL Calcium (8.4-10.2) mg/dL Albumin (3.5-5.0) g/dL 05/07/19 05/07/19 05/08/19 Range/Units 17:07 20:33 07:14 WBC (3.8-10.6) k/uL RBC (3.80-5.40) m/uL Hgb (11.4-16.0) gm/dL Hct (34.0-46.0) % RDW (11.5-15.5) % Blast Cells % % Lymphocytes # (Manual) (1.0-4.8) k/uL Monocytes # (Manual) (0-1.0) k/uL Metamyelocytes # (Man) (0) k/uL Blast Cells # (Man) (0) k/uL Nucleated RBCs (0-0) /100 WBC PT (9.0-12.0) sec INR (<1.2) BUN (7-17) mg/dL Glucose (74-99) mg/dL POC Glucose (mg/dL) 158 H 232 H 168 H (75-99) mg/dL Calcium (8.4-10.2) mg/dL Albumin (3.5-5.0) g/dL 05/08/19 05/08/19 Range/Units 07:36 07:36 WBC 16.6 H (3.8-10.6) k/uL RBC 2.13 L (3.80-5.40) m/uL Hgb 6.7 L* (11.4-16.0) gm/dL Hct 20.4 L (34.0-46.0) % RDW 16.1 H (11.5-15.5) % Blast Cells % % Lymphocytes # (Manual) (1.0-4.8) k/uL Monocytes # (Manual) (0-1.0) k/uL Metamyelocytes # (Man) (0) k/uL Blast Cells # (Man) (0) k/uL Nucleated RBCs (0-0) /100 WBC PT (9.0-12.0) sec INR (<1.2) BUN 26 H (7-17) mg/dL Glucose 147 H (74-99) mg/dL POC Glucose (mg/dL) (75-99) mg/dL Calcium 7.9 L (8.4-10.2) mg/dL Albumin 3.1 L (3.5-5.0) g/dL Assessment and Plan Assessment: 1. Acute myelomonocytic leukemia. Patient remained for inpatient chemotherapy. Patient admitted to oncology services 2. Multiple joint pain due to acute myeloid leukemia. Home meds resumed 3. History of essential hypertension 4. Diabetes mellitus. Metformin reordered sliding scale insulin at that 5. History of hyperlipidemia 6. 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 Hemoglobin 6.7 per nursing staff oncology made aware 7. Bicytopenia. Due to underlining AML. Oncology service is following Thank you for this consultation we will continue to follow patient closely throughout stay I performed an examination of the patient and discussed their management with the Nurse Practitioner. I have reviewed the Nurse Practitioner's notes and agree with the documented findings and plan of care
--- NOTE | 2019-05-08 10:43 | IR ---
EXAMINATION TYPE: IR cvc insert >=5 years DATE OF EXAM: 05/07/2019 COMPARISON: NONE CLINICAL HISTORY: Leukemia Needs long-term intravenous access for chemotherapy. PROCEDURE: After informed consent, the skin overlying the right basilic vein was localized with ultrasound and n oted to be compressible and patent. An ultrasound image was obtained and submitted on the patient's chart. The overlying skin was prepped and draped and Lidocaine was used for local anesthesia. A ski n darshan was made with a scalpel. Access was gained to the vein under ultrasound guidance with a 21 ga uge needle and a 0.018 inch wire was advanced. Access site was dilated with Peel-Away sheath and cat heter tailored to the appropriate length and advanced such that the distal tip is at the cavoatrial j unction. Spot image was obtained verifying placement. Catheter was fixed to the skin with suture an d a sterile dressing was placed following hemostasis. Catheter was aspirated and flushed with saline . Patient was discharged in stable condition without complication.Maximal barrier technique is utili zed. Ultrasound image is documented on the chart. Ultrasound used with sterile technique. Fluoro time and fluoroscopic images submitted to document procedure: 204 intraoperative images, 0.4 m inutes fluoroscopy time IMPRESSION: STATUS POST ULTRASOUND AND FLUOROSCOPIC GUIDED PICC LINE PLACEMENT, READY FOR USE. THIS PROCEDURE WAS PERFORMED BY THE UNDERSIGNED.
[2019-05-08 11:29] LABS: Myelocytes # (M) 0.16 k/uL (0); Myelocytes % 1 %; WBC 16.4 k/uL (3.8-10.6)
[2019-05-08 11:32] LABS: Band Neutrophils % 2 %; Eosinophils # (M) 0.66 k/uL (0-0.7); Lymphocytes # (M) 5.74 k/uL (1.0-4.8); Neutrophils % (M) 13 %; Nucleated Red Blood Cells 0 /100 WBC (0-0); Poikilocytosis (M) Present; Total Cells Counted 200
[2019-05-08 11:33] LABS: Large Platelets Present; Platelet Count 98 k/uL (150-450)
[2019-05-08 11:35] LABS: Blast Cells # (M) 1.31 k/uL (0)
[2019-05-08 11:57] LABS: Glucose,Whole Blood 147 mg/dL (75-99)
[2019-05-08] MEDS: ONDANSETRON 16 MG in SODIUM CHLORIDE 0.9% 50 ML IVPB SCH (12:59)
--- NOTE | 2019-05-08 13:31 | P.PN ---
Subjective Progress Note Date: 05/08/19 Principal diagnosis: AML, admitted for induction chemo with 7+3 regimen In follow-up today patient describes a decrease in her left forearm pain, Tylenol 3 is working well, patient is now able to ambulate with a walker better, she is having some mild nausea, no vomiting, she is still constipated, denies fevers, oral irritation, sore throat, cough, dysuria, hematuria, bleeding or swelling. Objective - Vital Signs Vital signs: Vital Signs Temp 96.7 F L 05/08/19 12:30 Pulse 83 05/08/19 12:30 Resp 18 05/08/19 12:30 BP 120/62 05/08/19 12:30 Pulse Ox 96 05/08/19 12:30 Intake & Output 05/07/19 05/08/19 05/08/19 18:59 06:59 18:59 Intake Total 1080 1617.5 2225 Balance 1080 1617.5 2225 Weight 97.522 kg 113.5 kg Intake: Intake, IV Titration 437.5 1275 Amount Cytarabine/Pf 200 mg In 200 Sodium Chloride 0.9% 500 ml 500 ml @ 21.25 mls/hr IV Q24H [facility] Rx#:[id number] Ondansetron 16 mg In 100 Sodium Chloride 0.9% 50 ml @ 232 mls/hr IVPB Q24H [facility] Rx#:[id number] Sodium Chloride 0.9% 1, 437.5 975 000 ml @ 125 mls/hr IV . Q8H [facility] Rx#:[id number] Oral 1080 1180 950 Other: Voiding Method Bedside Commode Bedside Commode Bedside Commode # Voids 2 2 4 - Constitutional General appearance: Present: cooperative, no acute distress, obese - EENT Eyes: Present: anicteric sclerae, EOMI ENT: Present: hearing grossly normal, normal oropharynx - Respiratory Respiratory: bilateral: CTA - Cardiovascular Heart sounds: normal: S1, S2 - Peripheral edema leg Peripheral Edema: bilateral: None - Gastrointestinal General gastrointestinal: Present: normal bowel sounds, soft - Neurologic Neurologic: Present: CNII-XII intact - Musculoskeletal Musculoskeletal: Present: generalized weakness, strength equal bilaterally - Psychiatric Psychiatric: Present: A&O x's 3, appropriate affect, intact judgment & insight - Labs CBC & Chem 7: 05/08/19 07:36 05/08/19 07:36 Labs: Abnormal Lab Results - Last 24 Hours (Table) 05/07/19 05/07/19 05/08/19 Range/Units 17:07 20:33 07:14 WBC (3.8-10.6) k/uL RBC (3.80-5.40) m/uL Hgb (11.4-16.0) gm/dL Hct (34.0-46.0) % RDW (11.5-15.5) % Plt Count (150-450) k/uL Blast Cells % % Lymphocytes # (Manual) (1.0-4.8) k/uL Monocytes # (Manual) (0-1.0) k/uL Myelocytes # (Manual) (0) k/uL Blast Cells # (Man) (0) k/uL BUN (7-17) mg/dL Glucose (74-99) mg/dL POC Glucose (mg/dL) 158 H 232 H 168 H (75-99) mg/dL Calcium (8.4-10.2) mg/dL Albumin (3.5-5.0) g/dL 05/08/19 05/08/19 05/08/19 Range/Units 07:36 07:36 11:52 WBC 16.4 H (3.8-10.6) k/uL RBC 2.13 L (3.80-5.40) m/uL Hgb 6.7 L* (11.4-16.0) gm/dL Hct 20.4 L (34.0-46.0) % RDW 16.1 H (11.5-15.5) % Plt Count 98 L (150-450) k/uL Blast Cells % 8 H* % Lymphocytes # (Manual) 5.74 H (1.0-4.8) k/uL Monocytes # (Manual) 6.40 H (0-1.0) k/uL Myelocytes # (Manual) 0.16 H (0) k/uL Blast Cells # (Man) 1.31 H (0) k/uL BUN 26 H (7-17) mg/dL Glucose 147 H (74-99) mg/dL POC Glucose (mg/dL) 147 H (75-99) mg/dL Calcium 7.9 L (8.4-10.2) mg/dL Albumin 3.1 L (3.5-5.0) g/dL Assessment and Plan (1) Acute myelomonocytic leukemia not having achieved remission Narrative/Plan: AML, induction chemo 7+3 regimen. Supportive medications ordered Current Visit: Yes Status: Acute Priority: High Code(s): C92.50 - ACUTE MYELOMONOCYTIC LEUKEMIA, NOT HAVING ACHIEVED REMISSION SNOMED Code(s): 103975279 (2) Polyarthralgia Narrative/Plan: ? if r/t AML. Improved with tylenol #3, pt is now able to ambulate with bilateral leg braces and walker. Current Visit: Yes Status: Acute Priority: High Code(s): M25.50 - PAIN IN UNSPECIFIED JOINT SNOMED Code(s): 26632978 (3) Bicytopenia Narrative/Plan: 1 unit irradiated PRBCs for Hgb 6.7-conservative transfusions No plt necessary today CBC daily Current Visit: Yes Status: Acute Priority: Medium Code(s): D75.89 - OTHER SPECIFIED DISEASES OF BLOOD AND BLOOD-FORMING ORGANS SNOMED Code(s): 98889313 Plan: Mild nausea, no vomiting-chemo related, antiemetic available Ambulation and PT/OT No evidence of TLS Daily labs and f/u
[2019-05-08] MEDS ORDERED: MAGNESIUM HYDROXIDE 2,400 MG/10 ML CUP PO PRN (13:33)
[2019-05-08] MEDS: SENNOSIDES-DOCUSATE SODIUM 1 EACH TAB PO SCH ×2 (13:51→21:15)
[2019-05-08] MEDS: DEXAMETHASONE SOD PHOSPHATE 10 MG/ML 1 ML VIAL IV SCH (13:51)
[2019-05-08] MEDS: FAMOTIDINE 20 MG/2 ML VIAL IV SCH (13:52)
[2019-05-08] MEDS: DAUNORUBICIN IV SCH (15:17)
[2019-05-08] MEDS: CYTARABINE IV SCH (15:17)
[2019-05-08] MEDS: SODIUM CHLORIDE 0.9% IV SCH (15:17)
[2019-05-08 17:40] LABS: Glucose,Whole Blood 170 mg/dL (75-99)
[2019-05-08 17:51] LABS: Hemoglobin A1C 8.6 % (4.0-6.0)
[2019-05-08 20:13] LABS: Glucose,Whole Blood 191 mg/dL (75-99)
[2019-05-09] MEDS: SODIUM CHLORIDE 0.9% 1,000 ML IV SCH ×3 (00:06→17:31)
[2019-05-09 07:01] LABS: Glucose,Whole Blood 153 mg/dL (75-99)
[2019-05-09 09:09] LABS: Anisocytosis Slight; HCT 23.8 % (34.0-46.0); HGB 7.9 gm/dL (11.4-16.0); MCHC 33.4 g/dL (31.0-37.0); Mean Platelet Volume 14.4; Platelet Count 102 k/uL (150-450); RBC 2.56 m/uL (3.80-5.40); RDW 17.4 % (11.5-15.5); WBC 13.4 k/uL (3.8-10.6)
[2019-05-09] MEDS: ALLOPURINOL 300 MG TAB PO SCH (09:22)
[2019-05-09] MEDS: CITALOPRAM HYDROBROMIDE 20 MG TAB PO SCH (09:22)
[2019-05-09] MEDS: INSULIN ASPART (NovoLOG) 100 UNIT/ML VIAL SQ SCH ×4 (09:22→21:49)
[2019-05-09] MEDS: SENNOSIDES-DOCUSATE SODIUM 1 EACH TAB PO SCH ×2 (09:22→21:49)
[2019-05-09] MEDS: metFORMIN 500 MG TAB PO SCH ×2 (09:22→21:49)
[2019-05-09] MEDS: SALT AND SODA MOUTHWASH 1,000 ML PO SCH ×4 (09:23→21:49)
[2019-05-09] MEDS: LISINOPRIL-HCTZ 10-12.5 MG 1 EACH TAB PO SCH (09:25)
[2019-05-09] MEDS: CHOLECALCIFEROL 400 UNIT TAB PO SCH (09:25)
[2019-05-09] MEDS: PRAVASTATIN SODIUM 20 MG TAB PO SCH (09:25)
[2019-05-09 09:43] LABS: Calcium 7.8 mg/dL (8.4-10.2); Phosphorus 3.9 mg/dL (2.5-4.5); Total Bilirubin 0.3 mg/dL (0.2-1.3); Total Protein 6.8 g/dL (6.3-8.2)
[2019-05-09 11:32] LABS: Blast Cells # (M) 0.67 k/uL (0); Lymphocytes # (M) 4.96 k/uL (1.0-4.8); Neutrophils % (M) 12 %; Nucleated Red Blood Cells 0 /100 WBC (0-0); Poikilocytosis (M) Present; Rouleaux Present; Total Cells Counted 200
--- NOTE | 2019-05-09 11:34 | P.PN ---
Subjective Progress Note Date: 05/09/19 This is a 64-year-old patient of Dr. miller. Patient presents for inpatient chemotherapy admitted to oncology services. Patient was recently admitted on 04/10/2019 for multiple joint swelling along with abnormal CBC with increased blastocyte. Patient underwent but bone marrow aspiration biopsy on 04/13/2019. Per oncology service is findings consistent with acute myeloid leukemia. Additional medical history includes diabetes mellitus, hyperlipidemia and hypertension. Patient had PICC line placed to receive chemotherapy. Patient planning first round of chemotherapy today patient will require hospitalization for 7 days. This time patient denies any chest pain or shortness breath. Patient denies nausea vomiting or diarrhea. Patient denies any urinary burning or frequency. She does reports she still having chronic pain due to multiple joint swelling. 2-D echo completed showing EF of 60-65%. On 05/08/2019 patient underwent prescribed chemotherapy yesterday. Patient reports that she is feeling well. Small amount of nausea. Patient reports improvement with her joint discomfort. Patient denies any chest pain or shortness of breath patient denies nausea vomiting or diarrhea. Patient denies any urinary burning or frequency. On 05/09/2019 patient is alert and oriented 3. Patient reports a small amount of nausea but states overall she is feeling well. Patient did receive 1 unit of PRBCs for hemoglobin 6. 9. Repeat hemoglobin 7.9. At this time patient denies chest pain or shortness breath. Patient denies nausea vomiting diarrhea. Patient denies any urinary burning or frequency. Objective - Vital Signs Vital signs: Vital Signs Temp 97.7 F 05/09/19 04:23 Pulse 78 05/09/19 04:23 Resp 16 05/09/19 04:23 BP 129/76 05/09/19 04:23 Pulse Ox 98 05/09/19 04:23 Intake & Output 05/08/19 05/09/19 05/09/19 18:59 06:59 18:59 Intake Total 2225 3040 Balance 2225 3040 Weight 114 kg Intake: Intake, IV Titration 1275 1130 Amount Cytarabine/Pf 200 mg In 200 255 Sodium Chloride 0.9% 500 ml 500 ml @ 21.25 mls/hr IV Q24H [facility] Rx#:[id number] Ondansetron 16 mg In 100 Sodium Chloride 0.9% 50 ml @ 232 mls/hr IVPB Q24H [facility] Rx#:[id number] Sodium Chloride 0.9% 1, 975 875 000 ml @ 125 mls/hr IV . Q8H [facility] Rx#:[id number] Oral 950 1600 Blood Product 310 Rc Irr As1 Unit 310 [id number] Other: Voiding Method Bedside Commode Bedside Commode # Voids 3 5 # Bowel Movements 1 - Exam Head normocephalic Neck supple Lungs clear to auscultation bilaterally no wheezing or crackles Heart regular rate and rhythm S1-S2, no rub or gallop Abdomen is soft nontender nondistended positive bowel sounds no hepatosplenomegaly Extremities no edema. Bilateral leg boots in place Neuro alert and orientated to 3 - Labs CBC & Chem 7: 05/09/19 08:09 05/09/19 09:15 Labs: Abnormal Lab Results - Last 24 Hours (Table) 05/08/19 05/08/19 05/08/19 Range/Units 07:36 07:36 11:40 WBC 16.4 H (3.8-10.6) k/uL RBC (3.80-5.40) m/uL Hgb (11.4-16.0) gm/dL Hct (34.0-46.0) % RDW (11.5-15.5) % Plt Count 98 L (150-450) k/uL Blast Cells % 8 H* % Lymphocytes # (Manual) 5.74 H (1.0-4.8) k/uL Monocytes # (Manual) 6.40 H (0-1.0) k/uL Myelocytes # (Manual) 0.16 H (0) k/uL Blast Cells # (Man) 1.31 H (0) k/uL BUN (7-17) mg/dL Glucose (74-99) mg/dL POC Glucose (mg/dL) (75-99) mg/dL Hemoglobin A1c 8.6 H (4.0-6.0) % Calcium (8.4-10.2) mg/dL Albumin (3.5-5.0) g/dL Crossmatch See Detail 05/08/19 05/08/19 05/08/19 Range/Units 11:52 17:39 20:12 WBC (3.8-10.6) k/uL RBC (3.80-5.40) m/uL Hgb (11.4-16.0) gm/dL Hct (34.0-46.0) % RDW (11.5-15.5) % Plt Count (150-450) k/uL Blast Cells % % Lymphocytes # (Manual) (1.0-4.8) k/uL Monocytes # (Manual) (0-1.0) k/uL Myelocytes # (Manual) (0) k/uL Blast Cells # (Man) (0) k/uL BUN (7-17) mg/dL Glucose (74-99) mg/dL POC Glucose (mg/dL) 147 H 170 H 191 H (75-99) mg/dL Hemoglobin A1c (4.0-6.0) % Calcium (8.4-10.2) mg/dL Albumin (3.5-5.0) g/dL Crossmatch 05/09/19 05/09/19 05/09/19 Range/Units 06:59 08:09 09:15 WBC 13.4 H (3.8-10.6) k/uL RBC 2.56 L (3.80-5.40) m/uL Hgb 7.9 L (11.4-16.0) gm/dL Hct 23.8 L (34.0-46.0) % RDW 17.4 H (11.5-15.5) % Plt Count 102 L (150-450) k/uL Blast Cells % % Lymphocytes # (Manual) (1.0-4.8) k/uL Monocytes # (Manual) (0-1.0) k/uL Myelocytes # (Manual) (0) k/uL Blast Cells # (Man) (0) k/uL BUN 25 H (7-17) mg/dL Glucose 216 H (74-99) mg/dL POC Glucose (mg/dL) 153 H (75-99) mg/dL Hemoglobin A1c (4.0-6.0) % Calcium 7.8 L (8.4-10.2) mg/dL Albumin 3.0 L (3.5-5.0) g/dL Crossmatch Assessment and Plan Assessment: 1. Acute myelomonocytic leukemia. Patient remained for inpatient chemotherapy. Patient admitted to oncology services 2. Multiple joint pain due to acute myeloid leukemia. Home meds resumed 3. History of essential hypertension 4. Diabetes mellitus. Metformin reordered sliding scale insulin at that 5. History of hyperlipidemia 6. 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 Hemoglobin 6.7. Patient received 1 unit of PRBCs. Coumadin 7.9 7. Bicytopenia. Due to underlining AML. Oncology service is following Thank you for this consultation we will continue to follow patient closely throughout stay I performed an examination of the patient and discussed their management with the Nurse Practitioner. I have reviewed the Nurse Practitioner's notes and agree with the documented findings and plan of care
[2019-05-09 11:36] LABS: Glucose,Whole Blood 138 mg/dL (75-99)
[2019-05-09] MEDS: ONDANSETRON 16 MG in SODIUM CHLORIDE 0.9% 50 ML IVPB SCH (14:14)
[2019-05-09] MEDS: FAMOTIDINE 20 MG/2 ML VIAL IV SCH (15:21)
[2019-05-09] MEDS: DAUNORUBICIN IV SCH (15:21)
[2019-05-09] MEDS: DEXAMETHASONE SOD PHOSPHATE 10 MG/ML 1 ML VIAL IV SCH (15:21)
[2019-05-09] MEDS: SODIUM CHLORIDE 0.9% IV SCH (15:22)
[2019-05-09] MEDS: CYTARABINE IV SCH (15:22)
[2019-05-09 17:16] LABS: Glucose,Whole Blood 162 mg/dL (75-99)
[2019-05-09 21:07] LABS: Glucose,Whole Blood 188 mg/dL (75-99)
[2019-05-10] MEDS: SODIUM CHLORIDE 0.9% 1,000 ML IV SCH ×3 (00:38→19:53)
--- NOTE | 2019-05-10 01:19 | P.PN ---
Subjective Progress Note Date: 05/09/19 The patient complains of some fatigue and decreased appetite. Otherwise she is tolerating treatment well. Ankle symptoms are well controlled with the use of walking boots. No fever/chills/nausea/vomiting/mouth sore/obvious bleeding. Objective - Vital Signs Vital signs: Vital Signs Temp 98.4 F 05/09/19 19:11 Pulse 78 05/09/19 19:11 Resp 18 05/09/19 19:11 BP 123/63 05/09/19 19:11 Pulse Ox 94 L 05/09/19 19:11 Intake & Output 05/09/19 05/09/19 05/10/19 06:59 18:59 06:59 Intake Total 3040 2488 Balance 3040 2488 Weight 114 kg Intake: Intake, IV Titration 1130 1538 Amount Cytarabine/Pf 200 mg In 255 300 Sodium Chloride 0.9% 500 ml 500 ml @ 21.25 mls/hr IV Q24H [facility] Rx#:[id number] Daunorubicin 120 mg In 288 Empty Syringe 1 syr @ 288 mls/hr IV Q24H [facility] Rx#: [id number] Ondansetron 16 mg In 100 Sodium Chloride 0.9% 50 ml @ 232 mls/hr IVPB Q24H [facility] Rx#:[id number] Sodium Chloride 0.9% 1, 875 850 000 ml @ 125 mls/hr IV . Q8H [facility] Rx#:[id number] Oral 1600 950 Blood Product 310 Rc Irr As1 Unit 310 [id number] Other: Voiding Method Bedside Commode Bedside Commode # Voids 5 5 3 # Bowel Movements 1 - Constitutional General appearance: Present: no acute distress - EENT Eyes: Present: EOMI ENT: Present: hearing grossly normal, normal oropharynx - Respiratory Respiratory: bilateral: CTA - Cardiovascular Rhythm: regular Heart sounds: normal: S1, S2 - Gastrointestinal General gastrointestinal: Present: normal bowel sounds, soft - Integumentary Integumentary: Present: normal - Neurologic Neurologic: Present: CNII-XII intact - Musculoskeletal Musculoskeletal: Present: strength equal bilaterally - Psychiatric Psychiatric: Present: A&O x's 3, appropriate affect - Labs CBC & Chem 7: 05/09/19 08:09 05/09/19 09:15 Labs: Abnormal Lab Results - Last 24 Hours (Table) 05/08/19 05/09/1905/09/19 Range/Units 11:40 06:59 08:09 WBC 13.4 H (3.8-10.6) k/uL RBC 2.56 L (3.80-5.40) m/uL Hgb 7.9 L (11.4-16.0) gm/dL Hct 23.8 L (34.0-46.0) % RDW 17.4 H (11.5-15.5) % Plt Count 102 L (150-450) k/uL Blast Cells % 5 H* % Lymphocytes # (Manual) 4.96 H (1.0-4.8) k/uL Monocytes # (Manual) 6.30 H (0-1.0) k/uL Blast Cells # (Man) 0.67 H (0) k/uL BUN (7-17) mg/dL Glucose (74-99) mg/dL POC Glucose (mg/dL) 153 H (75-99) mg/dL Calcium (8.4-10.2) mg/dL Albumin (3.5-5.0) g/dL Crossmatch See Detail 05/09/19 05/09/19 05/09/19 Range/Units 09:15 11:34 17:15 WBC (3.8-10.6) k/uL RBC (3.80-5.40) m/uL Hgb (11.4-16.0) gm/dL Hct (34.0-46.0) % RDW (11.5-15.5) % Plt Count (150-450) k/uL Blast Cells % % Lymphocytes # (Manual) (1.0-4.8) k/uL Monocytes # (Manual) (0-1.0) k/uL Blast Cells # (Man) (0) k/uL BUN 25 H (7-17) mg/dL Glucose 216 H (74-99) mg/dL POC Glucose (mg/dL) 138 H 162 H (75-99) mg/dL Calcium 7.8 L (8.4-10.2) mg/dL Albumin 3.0 L (3.5-5.0) g/dL Crossmatch 05/09/19 Range/Units 21:05 WBC (3.8-10.6) k/uL RBC (3.80-5.40) m/uL Hgb (11.4-16.0) gm/dL Hct (34.0-46.0) % RDW (11.5-15.5) % Plt Count (150-450) k/uL Blast Cells % % Lymphocytes # (Manual) (1.0-4.8) k/uL Monocytes # (Manual) (0-1.0) k/uL Blast Cells # (Man) (0) k/uL BUN (7-17) mg/dL Glucose (74-99) mg/dL POC Glucose (mg/dL) 188 H (75-99) mg/dL Calcium (8.4-10.2) mg/dL Albumin (3.5-5.0) g/dL Crossmatch Assessment and Plan (1) Acute myelomonocytic leukemia not having achieved remission Narrative/Plan: The patient is on day #3 of induction chemotherapy with the 7+3 regimen. Santos atment reasonably well with overall grade 1 symptoms. Continue chemotherapy per protocol. Continue to monitor with clinical exams, and labs which have been ordered Current Visit: Yes Status: Acute Priority: High Code(s): C92.50 - ACUTE MYELOMONOCYTIC LEUKEMIA, NOT HAVING ACHIEVED REMISSION SNOMED Code(s): 126702492 (2) Polyarthralgia Narrative/Plan: No new areas of joint pain. Ankle pain appears to be significantly improved with the use of walking boots. Was advised to try walking without the boats to see if there has been any improvement in the pain from the chemotherapy Current Visit: Yes Status: Acute Priority: High Code(s): M25.50 - PAIN IN UNSPECIFIED JOINT SNOMED Code(s): 09124166 (3) Bicytopenia Narrative/Plan: Platelet counts are in a safe range. Hemoglobin has improved after transfusion today into the 8 range. Continue to monitor and transfuse as needed. Patient is receiving only irradiated blood per Current Visit: Yes Status: Acute Priority: Medium Code(s): D75.89 - OTHER SPECIFIED DISEASES OF BLOOD AND BLOOD-FORMING ORGANS SNOMED Code(s): 20165870
[2019-05-10 06:49] LABS: Glucose,Whole Blood 130 mg/dL (75-99)
[2019-05-10 07:09] LABS: Anisocytosis Slight; HCT 21.5 % (34.0-46.0); HGB 7.1 gm/dL (11.4-16.0); MCH 30.5 pg (25.0-35.0); MCHC 32.9 g/dL (31.0-37.0); MCV 92.8 fL (80.0-100.0); Mean Platelet Volume 12.9; Platelet Count 74 k/uL (150-450); RBC 2.32 m/uL (3.80-5.40)
[2019-05-10 07:17] LABS: ALT 13 U/L (9-52); AST 13 U/L (14-36); African American GFR (CKD) >90 (>60 ml/min/1.73 sqM); Alkaline Phosphatase 58 U/L (38-126); Anion Gap 7 mmol/L; Blood Urea Nitrogen 21 mg/dL (7-17); Calcium 8.1 mg/dL (8.4-10.2); Carbon Dioxide 26 mmol/L (22-30); Chloride 106 mmol/L (98-107); Glucose 134 mg/dL (74-99); Phosphorus 4.3 mg/dL (2.5-4.5); Potassium 4.6 mmol/L (3.5-5.1); Sodium 139 mmol/L (137-145); Total Bilirubin 0.4 mg/dL (0.2-1.3); Total Protein 6.7 g/dL (6.3-8.2); Uric Acid 4.2 mg/dL (3.7-7.4)
[2019-05-10 07:22] LABS: WBC 1.4 k/uL (3.8-10.6)
[2019-05-10] MEDS: INSULIN ASPART (NovoLOG) 100 UNIT/ML VIAL SQ SCH ×4 (07:38→21:49)
[2019-05-10] MEDS: CITALOPRAM HYDROBROMIDE 20 MG TAB PO SCH (08:06)
[2019-05-10] MEDS: metFORMIN 500 MG TAB PO SCH ×2 (08:06→21:50)
[2019-05-10] MEDS: LISINOPRIL-HCTZ 10-12.5 MG 1 EACH TAB PO SCH (08:07)
[2019-05-10] MEDS: ONDANSETRON 4 MG/2 ML VIAL IVP PRN (08:07)
[2019-05-10] MEDS: ALLOPURINOL 300 MG TAB PO SCH (08:07)
[2019-05-10] MEDS: PRAVASTATIN SODIUM 20 MG TAB PO SCH (08:07)
[2019-05-10] MEDS: SENNOSIDES-DOCUSATE SODIUM 1 EACH TAB PO SCH ×2 (08:07→21:50)
[2019-05-10] MEDS: SALT AND SODA MOUTHWASH 1,000 ML PO SCH ×4 (08:07→21:50)
[2019-05-10] MEDS: CHOLECALCIFEROL 400 UNIT TAB PO SCH (08:07)
[2019-05-10 08:10] LABS: Neutrophils % (M) 22 %
[2019-05-10 08:13] LABS: Blast Cells # (M) 0.06 k/uL (0); Lymphocytes # (M) 0.83 k/uL (1.0-4.8); Monocytes # (M) 0.22 k/uL (0-1.0); Nucleated Red Blood Cells 0 /100 WBC (0-0); Total Cells Counted 200
[2019-05-10 08:14] LABS: Large Platelets Present; Poikilocytosis (M) Present; Rouleaux Present
[2019-05-10 09:15] LABS: Appearance,Urine Clear (Clear); Bilirubin,Urine Negative (Negative); Blood,Urine Negative (Negative); Color,Urine Yellow; Glucose,Urine (UA) Negative (Negative); Ketones,Urine Negative (Negative); Leukocyte Esterase,Urine Negative (Negative); Nitrite,Urine Negative (Negative); Protein,Urine Negative (Negative); Specific Gravity,Urine 1.016 (1.001-1.035); Urobilinogen,Urine <2.0 mg/dL (<2.0)
[2019-05-10] MEDS ORDERED: PETROLATUM, WHITE OINT 50 GM TUBE TOPICAL PRN (11:18)
[2019-05-10 11:25] LABS: Glucose,Whole Blood 129 mg/dL (75-99)
--- NOTE | 2019-05-10 11:47 | P.PN ---
Subjective Progress Note Date: 05/10/19 This is a 64-year-old patient of Dr. miller. Patient presents for inpatient chemotherapy admitted to oncology services. Patient was recently admitted on 04/10/2019 for multiple joint swelling along with abnormal CBC with increased blastocyte. Patient underwent but bone marrow aspiration biopsy on 04/13/2019. Per oncology service is findings consistent with acute myeloid leukemia. Additional medical history includes diabetes mellitus, hyperlipidemia and hypertension. Patient had PICC line placed to receive chemotherapy. Patient planning first round of chemotherapy today patient will require hospitalization for 7 days. This time patient denies any chest pain or shortness breath. Patient denies nausea vomiting or diarrhea. Patient denies any urinary burning or frequency. She does reports she still having chronic pain due to multiple joint swelling. 2-D echo completed showing EF of 60-65%. On 05/08/2019 patient underwent prescribed chemotherapy yesterday. Patient reports that she is feeling well. Small amount of nausea. Patient reports improvement with her joint discomfort. Patient denies any chest pain or shortness of breath patient denies nausea vomiting or diarrhea. Patient denies any urinary burning or frequency. On 05/09/2019 patient is alert and oriented 3. Patient reports a small amount of nausea but states overall she is feeling well. Patient did receive 1 unit of PRBCs for hemoglobin 6. 9. Repeat hemoglobin 7.9. At this time patient denies chest pain or shortness breath. Patient denies nausea vomiting diarrhea. Patient denies any urinary burning or frequency. On 05/10/2019 patient's alert and oriented 3 patient is still having some nausea and feels overall well. Patient reports improvement with her joint discomfort hemoglobin 7.1. Patient denies any sores in mouth. Patient denies any rashes or open lesions. Patient denies nausea vomiting or diarrhea. UA was negative Objective - Vital Signs Vital signs: Vital Signs Temp 98 F 05/10/19 07:45 Pulse 73 05/10/19 07:45 Resp 16 05/10/19 07:45 BP 148/72 05/10/19 07:45 Pulse Ox 97 05/10/19 07:45 Intake & Output 05/09/19 05/10/19 05/10/19 18:59 06:59 18:59 Intake Total 2488 1395 Balance 2488 1395 Weight 113 kg Intake: Intake, IV Titration 2361 592 Amount Cytarabine/Pf 200 mg In 300 150 Sodium Chloride 0.9% 500 ml 500 ml @ 21.25 mls/hr IV Q24H LAST Rx#:[id number] Daunorubicin 120 mg In 288 Empty Syringe 1 syr @ 288 mls/hr IV Q24H LAST Rx#: [id number] Ondansetron 16 mg In 100 Sodium Chloride 0.9% 50 ml @ 232 mls/hr IVPB Q24H LAST Rx#:[id number] Sodium Chloride 0.9% 1, 850 825 000 ml @ 125 mls/hr IV . Q8H LAST Rx#:[id number] Oral 950 420 Other: Voiding Method Bedside Commode Bedside Commode Bedside Commode # Voids 5 2 - Exam Head normocephalic Neck supple Lungs clear to auscultation bilaterally no wheezing or crackles Heart regular rate and rhythm S1-S2, no rub or gallop Abdomen is soft nontender nondistended positive bowel sounds no hepatosplenomegaly Extremities no edema. Bilateral leg boots in place Neuro alert and orientated to 3 - Labs CBC & Chem 7: 05/10/19 06:37 05/10/19 06:37 Labs: Abnormal Lab Results - Last 24 Hours (Table) 05/09/19 05/09/19 05/10/19 Range/Units 17:15 21:05 06:37 WBC (3.8-10.6) k/uL RBC (3.80-5.40) m/uL Hgb (11.4-16.0) gm/dL Hct (34.0-46.0) % RDW (11.5-15.5) % Plt Count (150-450) k/uL Blast Cells % % Neutrophils # (Manual) (1.3-7.7) k/uL Lymphocytes # (Manual) (1.0-4.8) k/uL Blast Cells # (Man) (0) k/uL BUN 21 H (7-17) mg/dL Glucose 134 H (74-99) mg/dL POC Glucose (mg/dL) 162 H 188 H (75-99) mg/dL Calcium 8.1 L (8.4-10.2) mg/dL AST 13 L (14-36) U/L Albumin 3.0 L (3.5-5.0) g/dL 05/10/19 05/10/19 05/10/19 Range/Units 06:37 06:48 11:24 WBC 1.4 L* (3.8-10.6) k/uL RBC 2.32 L (3.80-5.40) m/uL Hgb 7.1 L (11.4-16.0) gm/dL Hct 21.5 L (34.0-46.0) % RDW 17.0 H (11.5-15.5) % Plt Count 74 L (150-450) k/uL Blast Cells % 4 H* % Neutrophils # (Manual) 0.31 L* (1.3-7.7) k/uL Lymphocytes # (Manual) 0.83 L (1.0-4.8) k/uL Blast Cells # (Man) 0.06 H (0) k/uL BUN (7-17) mg/dL Glucose (74-99) mg/dL POC Glucose (mg/dL) 130 H 129 H (75-99) mg/dL Calcium (8.4-10.2) mg/dL AST (14-36) U/L Albumin (3.5-5.0) g/dL Assessment and Plan Assessment: 1. Acute myelomonocytic leukemia. Patient remained for inpatient chemotherapy. Patient admitted to oncology services. Patient is currently on day 3 of induction chemotherapy with a 7+3 regimen 2. Multiple joint pain due to acute myeloid leukemia. Home meds resumed. Joint pain improving with chemotherapy 3. History of essential hypertension 4. Diabetes mellitus. Metformin reordered sliding scale insulin at that 5. History of hyperlipidemia 6. 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 Hemoglobin 6.7. Patient received 1 unit of PRBCs. 7. Bicytopenia. Due to underlining AML. Oncology service is following Thank you for this consultation we will continue to follow patient closely throughout stay I performed an examination of the patient and discussed their management with the Nurse Practitioner. I have reviewed the Nurse Practitioner's notes and agr ee with the documented findings and plan of care
[2019-05-10] MEDS: NYSTATIN 100,000 UNIT/GM POWD 15 GM TOPICAL SCH ×2 (12:24→21:52)
[2019-05-10] MEDS: DEXAMETHASONE SOD PHOSPHATE 10 MG/ML 1 ML VIAL IV SCH (14:30)
[2019-05-10] MEDS: FAMOTIDINE 20 MG/2 ML VIAL IV SCH (14:30)
[2019-05-10] MEDS: ONDANSETRON 16 MG in SODIUM CHLORIDE 0.9% 50 ML IVPB SCH (14:30)
[2019-05-10] MEDS: CYTARABINE IV SCH (15:07)
[2019-05-10] MEDS: SODIUM CHLORIDE 0.9% IV SCH (15:07)
[2019-05-10 17:21] LABS: Glucose,Whole Blood 184 mg/dL (75-99)
--- NOTE | 2019-05-10 17:28 | P.PN ---
Subjective Progress Note Date: 05/10/19 Principal diagnosis: AML, admitted for induction chemo with 7+3 regimen In follow-up today patient is able to ambulate with the walker, her forearm pain is managed and actually decreased. She is requiring antibiotics for control of nausea, no vomiting, she had has a bowel movement, denies fevers, oral irritation, sore throat, cough, dysuria, hematuria, bleeding or swelling. Objective - Vital Signs Vital signs: Vital Signs Temp 98.1 F 05/10/19 16:54 Pulse 98 05/10/19 16:54 Resp 17 05/10/19 16:54 BP 135/80 05/10/19 16:54 Pulse Ox 98 05/10/19 16:54 Intake & Output 05/09/19 05/10/19 05/10/19 18:59 06:59 18:59 Intake Total 2488 1395 1170 Balance 2488 1395 1170 Weight 113 kg Intake: Intake, IV Titration 2620 119 0026 Amount Cytarabine/Pf 200 mg In 300 150 170 Sodium Chloride 0.9% 500 ml 500 ml @ 21.25 mls/hr IV Q24H LAST Rx#:[id number] Daunorubicin 120 mg In 288 Empty Syringe 1 syr @ 288 mls/hr IV Q24H LAST Rx#: [id number] Ondansetron 16 mg In 100 Sodium Chloride 0.9% 50 ml @ 232 mls/hr IVPB Q24H LAST Rx#:[id number] Sodium Chloride 0.9% 1, 922 246 6328 000 ml @ 125 mls/hr IV . Q8H LAST Rx#:[id number] Oral 950 420 Other: Voiding Method Bedside Commode Bedside Commode Bedside Commode # Voids 5 2 15 - Constitutional General appearance: Present: average body habitus, cooperative, no acute distress - EENT Eyes: Present: anicteric sclerae, EOMI ENT: Present: hearing grossly normal, normal oropharynx - Respiratory Respiratory: bilateral: CTA - Cardiovascular Rhythm: regular Heart sounds: normal: S1, S2 Abnormal Heart Sounds: Absent: systolic murmur, diastolic murmur, rub, S3 Gal lop, S4 Gallop, click, other - Peripheral edema leg Peripheral Edema: bilateral: None - Gastrointestinal General gastrointestinal: Present: normal bowel sounds, soft - Genitourinary Genitourinary Comment(s): Perineal area examination whitish color and odor of yeast, suspicious for yeast infection. - Neurologic Neurologic: Present: CNII-XII intact - Musculoskeletal Musculoskeletal: Present: generalized weakness, strength equal bilaterally - Psychiatric Psychiatric: Present: A&O x's 3, appropriate affect, intact judgment & insight - Labs CBC & Chem 7: 05/10/19 06:37 05/10/19 06:37 Labs: Abnormal Lab Results - Last 24 Hours (Table) 05/09/19 05/10/19 05/10/19 Range/Units 21:05 06:37 06:37 WBC 1.4 L* (3.8-10.6) k/uL RBC 2.32 L (3.80-5.40) m/uL Hgb 7.1 L (11.4-16.0) gm/dL Hct 21.5 L (34.0-46.0) % RDW 17.0 H (11.5-15.5) % Plt Count 74 L (150-450) k/uL Blast Cells % 4 H* % Neutrophils # (Manual) 0.31 L* (1.3-7.7) k/uL Lymphocytes # (Manual) 0.83 L (1.0-4.8) k/uL Blast Cells # (Man) 0.06 H (0) k/uL BUN 21 H (7-17) mg/dL Glucose 134 H (74-99) mg/dL POC Glucose (mg/dL) 188 H (75-99) mg/dL Calcium 8.1 L (8.4-10.2) mg/dL AST 13 L (14-36) U/L Albumin 3.0 L (3.5-5.0) g/dL 05/10/19 05/10/19 Range/Units 06:48 11:24 WBC (3.8-10.6) k/uL RBC (3.80-5.40) m/uL Hgb (11.4-16.0) gm/dL Hct (34.0-46.0) % RDW (11.5-15.5) % Plt Count (150-450) k/uL Blast Cells % % Neutrophils # (Manual) (1.3-7.7) k/uL Lymphocytes # (Manual) (1.0-4.8) k/uL Blast Cells # (Man) (0) k/uL BUN (7-17) mg/dL Glucose (74-99) mg/dL POC Glucose (mg/dL) 130 H 129 H (75-99) mg/dL Calcium (8.4-10.2) mg/dL AST (14-36) U/L Albumin (3.5-5.0) g/dL Assessment and Plan (1) Pancytopenia due to antineoplastic chemotherapy Narrative/Plan: White blood cell and ANC drop, as expected from chemotherapy, desired effect. Last count 16 on admission, down to 4. No acute intervention Hemoglobin is 7.1, no transfusion. Transfusion for hemoglobin less than 7, be very conservative with transfusions. Platelet count is 74,000 today, no acute intervention. Transfuse for platelet count of less than 10,000 or if symptomatic. Irradiated blood products Current Visit: Yes Status: Acute Priority: High Code(s): D61.810 - ANTINEOPLASTIC CHEMOTHERAPY INDUCED PANCYTOPENIA; T45.1X5A - ADVERSE EFFECT OF ANTINEOPLASTIC AND IMMUNOSUP DRUGS, INIT SNOMED Code(s): 395465244676848 (2) Acute myelomonocytic leukemia not having achieved remission Narrative/Plan: AML, induction chemo 7+3 regimen. Cont treatment as prescribed Supportive medications ordered Current Visit: Yes Status: Acute Priority: High Code(s): C92.50 - ACUTE MYELOMONOCYTIC LEUKEMIA, NOT HAVING ACHIEVED REMISSION SNOMED Code(s): 258640969 (3) Polyarthralgia Narrative/Plan: ? if r/t AML. Improved with tylenol #3, pt is now able to ambulate with bilateral leg braces and walker. D/W case [facility] PT. Encouraged pt remove leg braces due to skin breakdown concerns and to evaluate pain and strength in the ankles. Encouraged her to follow PT instructions and use their support when doing therapy. Current Visit: Yes Status: Acute Priority: High Code(s): M25.50 - PAIN IN UNSPECIFIED JOINT SNOMED Code(s): 51816684 (4) Lisa infection of genital region Narrative/Plan: Topical antifungal prescribed. Current Visit: Yes Status: Acute Priority: Medium Code(s): B37.49 - OTHER UROGENITAL CANDIDIASIS SNOMED Code(s): 601192199 Plan: Antiviral, antifungal, antibacterial prescriptions all sent to patient's [facility] in [place]. Antibiotics Compazine prescription also sent. If patient is well enough and completes therapy on time she has a CBC follow-up appt on Tuesday at 9:15 AM, she will make further appointments at that time.
[2019-05-10 21:34] LABS: Glucose,Whole Blood 204 mg/dL (75-99)
[2019-05-10] MEDS: ACETAMINOPHEN TAB 325 MG TAB PO PRN (22:12)
[2019-05-11] MEDS: SODIUM CHLORIDE 0.9% 1,000 ML IV SCH ×3 (03:32→16:39)
[2019-05-11] MEDS: ACETAMINOPHEN TAB 325 MG TAB PO PRN (04:32)
[2019-05-11 06:58] LABS: Glucose,Whole Blood 125 mg/dL (75-99)
[2019-05-11] MEDS: INSULIN ASPART (NovoLOG) 100 UNIT/ML VIAL SQ SCH ×4 (07:44→21:25)
[2019-05-11] MEDS: LISINOPRIL-HCTZ 10-12.5 MG 1 EACH TAB PO SCH (08:12)
[2019-05-11] MEDS: SALT AND SODA MOUTHWASH 1,000 ML PO SCH ×4 (08:12→21:26)
[2019-05-11] MEDS: SENNOSIDES-DOCUSATE SODIUM 1 EACH TAB PO SCH ×2 (08:12→21:24)
[2019-05-11] MEDS: CHOLECALCIFEROL 400 UNIT TAB PO SCH (08:12)
[2019-05-11] MEDS: ALLOPURINOL 300 MG TAB PO SCH (08:12)
[2019-05-11] MEDS: CITALOPRAM HYDROBROMIDE 20 MG TAB PO SCH (08:12)
[2019-05-11] MEDS: metFORMIN 500 MG TAB PO SCH ×2 (08:12→21:24)
[2019-05-11] MEDS: NYSTATIN 100,000 UNIT/GM POWD 15 GM TOPICAL SCH ×2 (08:13→21:26)
[2019-05-11] MEDS: PRAVASTATIN SODIUM 20 MG TAB PO SCH (08:13)
[2019-05-11 08:53] LABS: Anisocytosis Slight; HCT 20.2 % (34.0-46.0); MCH 31.8 pg (25.0-35.0); MCHC 34.1 g/dL (31.0-37.0); MCV 93.1 fL (80.0-100.0); Mean Platelet Volume 12.8; RBC 2.17 m/uL (3.80-5.40); RDW 16.8 % (11.5-15.5)
[2019-05-11 08:58] LABS: AST 12 U/L (14-36); African American GFR (CKD) >90 (>60 ml/min/1.73 sqM); Albumin 2.9 g/dL (3.5-5.0); Alkaline Phosphatase 47 U/L (38-126); Anion Gap 6 mmol/L; Blood Urea Nitrogen 18 mg/dL (7-17); Calcium 8.1 mg/dL (8.4-10.2); Carbon Dioxide 28 mmol/L (22-30); Chloride 104 mmol/L (98-107); Glucose 116 mg/dL (74-99); Phosphorus 3.9 mg/dL (2.5-4.5); Potassium 4.3 mmol/L (3.5-5.1); Sodium 138 mmol/L (137-145); Total Bilirubin 0.5 mg/dL (0.2-1.3); Total Protein 6.4 g/dL (6.3-8.2); Uric Acid 3.7 mg/dL (3.7-7.4)
[2019-05-11 09:13] LABS: HGB 6.9 gm/dL (11.4-16.0); WBC 0.5 k/uL (3.8-10.6)
[2019-05-11 09:14] LABS: Platelet Count 57 k/uL (150-450)
[2019-05-11 09:25] LABS: ALT 11 U/L (9-52)
--- NOTE | 2019-05-11 11:01 | P.PN ---
Subjective Progress Note Date: 05/11/19 This is a 64-year-old patient of Dr. miller. Patient presents for inpatient chemotherapy admitted to oncology services. Patient was recently admitted on 04/10/2019 for multiple joint swelling along with abnormal CBC with increased blastocyte. Patient underwent but bone marrow aspiration biopsy on 04/13/2019. Per oncology service is findings consistent with acute myeloid leukemia. Additional medical history includes diabetes mellitus, hyperlipidemia and hypertension. Patient had PICC line placed to receive chemotherapy. Patient planning first round of chemotherapy today patient will require hospitalization for 7 days. This time patient denies any chest pain or shortness breath. Patient denies nausea vomiting or diarrhea. Patient denies any urinary burning or frequency. She does reports she still having chronic pain due to multiple joint swelling. 2-D echo completed showing EF of 60-65%. On 05/08/2019 patient underwent prescribed chemotherapy yesterday. Patient reports that she is feeling well. Small amount of nausea. Patient reports improvement with her joint discomfort. Patient denies any chest pain or shortness of breath patient denies nausea vomiting or diarrhea. Patient denies any urinary burning or frequency. On 05/09/2019 patient is alert and oriented 3. Patient reports a small amount of nausea but states overall she is feeling well. Patient did receive 1 unit of PRBCs for hemoglobin 6. 9. Repeat hemoglobin 7.9. At this time patient denies chest pain or shortness breath. Patient denies nausea vomiting diarrhea. Patient denies any urinary burning or frequency. On 05/10/2019 patient's alert and oriented 3 patient is still having some nausea and feels overall well. Patient reports improvement with her joint discomfort hemoglobin 7.1. Patient denies any sores in mouth. Patient denies any rashes or open lesions. Patient denies nausea vomiting or diarrhea. UA was negative On 05/11/2019 patient's alert and oriented 3. Patient complains of some nausea but is controlled with medication and blas angel. Patient has been tolerating chemo. Plan for discharge on Tuesday. Patient denies any chest pain or shortness breath. Patient denies nausea vomiting or diarrhea. Patient denies any urinary burning or frequency. Objective - Vital Signs Vital signs: Vital Signs Temp 96.9 F L 05/11/19 08:00 Pulse 73 05/11/19 08:00 Resp 17 05/11/19 08:00 BP 155/65 05/11/19 08:00 Pulse Ox 98 05/11/19 08:00 Intake & Output 05/10/19 05/11/19 05/11/19 18:59 06:59 18:59 Intake Total 1170 1462.50 Balance 1170 1462.50 Weight 98.2 kg Intake: Intake, IV Titration 1170 1462.50 Amount Cytarabine/Pf 200 mg In 170 212.50 Sodium Chloride 0.9% 500 ml 500 ml @ 21.25 mls/hr IV Q24H LAST Rx#:[id number] Sodium Chloride 0.9% 1, 1000 1250 000 ml @ 125 mls/hr IV . Q8H LAST Rx#:[id number] Other: Voiding Method Bedside Commode Bedside Commode # Voids 15 3 - Exam Head normocephalic Neck supple Lungs clear to auscultation bilaterally no wheezing or crackles Heart regular rate and rhythm S1-S2, no rub or gallop Abdomen is soft nontender nondistended positive bowel sounds no hepatosplenomegaly Extremities no edema. Bilateral leg boots in place Neuro alert and orientated to 3 - Labs CBC & Chem 7: 05/11/19 07:40 05/11/19 07:40 Labs: Abnormal Lab Results - Last 24 Hours (Table) 05/10/19 05/10/19 05/10/19 Range/Units 11:24 17:19 21:33 WBC (3.8-10.6) k/uL RBC (3.80-5.40) m/uL Hgb (11.4-16.0) gm/dL Hct (34.0-46.0) % RDW (11.5-15.5) % Plt Count (150-450) k/uL BUN (7-17) mg/dL Glucose (74-99) mg/dL POC Glucose (mg/dL) 129 H 184 H 204 H (75-99) mg/dL Calcium (8.4-10.2) mg/dL AST (14-36) U/L Albumin (3.5-5.0) g/dL 05/11/19 05/11/19 05/11/19 Range/Units 06:56 07:40 07:40 WBC 0.5 L* (3.8-10.6) k/uL RBC 2.17 L (3.80-5.40) m/uL Hgb 6.9 L* (11.4-16.0) gm/dL Hct 20.2 L (34.0-46.0) % RDW 16.8 H (11.5-15.5) % Plt Count 57 L (150-450) k/uL BUN 18 H (7-17) mg/dL Glucose 116 H (74-99) mg/dL POC Glucose (mg/dL) 125 H (75-99) mg/dL Calcium 8.1 L (8.4-10.2) mg/dL AST 12 L (14-36) U/L Albumin 2.9 L (3.5-5.0) g/dL Assessment and Plan Assessment: 1. Acute myelomonocytic leukemia. Patient remained for inpatient chemotherapy. Patient admitted to oncology services. Patient is currently on day 3 of induction chemotherapy with a 7+3 regimen 2. Multiple joint pain due to acute myeloid leukemia. Home meds resumed. Joint pain improving with chemotherapy 3. History of essential hypertension 4. Diabetes mellitus. Metformin reordered sliding scale insulin at that 5. History of hyperlipidemia 6. 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 Hemoglobin 6.7. Patient received 1 unit of PRBCs. 7. Bicytopenia. Due to underlining AML. Oncology service is following Thank you for this consultation we will continue to follow patient closely throughout stay I performed an examination of the patient and discussed their management with the Nurse Practitioner. I have reviewed the Nurse Practitioner's notes and agree with the documented findings and plan of care
[2019-05-11 11:30] LABS: Glucose,Whole Blood 114 mg/dL (75-99)
[2019-05-11] MEDS: Acetaminophen-Codeine 300-30mg TAB PO PRN (11:38)
--- NOTE | 2019-05-11 15:33 | P.PN ---
<Tawanna Sánchez - Last Filed: 05/11/19 15:31> Subjective Progress Note Date: 05/11/19 Principal diagnosis: AML hemoglobin 6.9 Objective - Vital Signs Vital signs: Vital Signs Temp 97.3 F L 05/11/19 12:00 Pulse 67 05/11/19 12:00 Resp 17 05/11/19 12:00 BP 119/58 05/11/19 12:00 Pulse Ox 98 05/11/19 12:00 Intake & Output 05/10/19 05/11/19 05/11/19 18:59 06:59 18:59 Intake Total 1170 1462.50 1176 Balance 1170 1462.50 1176 Weight 98.2 kg Intake: Intake, IV Titration 1170 1462.50 1176 Amount Cytarabine/Pf 200 mg In 170 212.50 176 Sodium Chloride 0.9% 500 ml 500 ml @ 21.25 mls/hr IV Q24H LAST Rx#:[id number] Sodium Chloride 0.9% 1, 1000 1250 1000 000 ml @ 125 mls/hr IV . Q8H LAST Rx#:[id number] Other: Voiding Method Bedside Commode Bedside Commode Bedside Commode # Voids 15 3 - Exam - Constitutional General appearance: Present: average body habitus, cooperative, no acute distress - EENT Eyes: Present: anicteric sclerae, EOMI ENT: Present: hearing grossly normal, normal oropharynx - Respiratory Respiratory: bilateral: CTA - Cardiovascular Rhythm: regular Heart sounds: normal: S1, S2 Abnormal Heart Sounds: Absent: systolic murmur, diastolic murmur, rub, S3 Gallop, S4 Gallop, click, other - Peripheral edema leg Peripheral Edema: bilateral: None - Gastrointestinal General gastrointestinal: Present: normal bowel sounds, soft - Genitourinary Genitourinary Comment(s): Perineal area examination whitish color and odor of yeast, suspicious for yeast infection. - Neurologic Neurologic: Present: CNII-XII intact - Musculoskeletal Musculoskeletal: Present: generalized weakness, strength equal bilaterally - Psychiatric Psychiatric: Present: A&O x's 3, appropriate affect, intact judgment & insight - Labs CBC & Chem 7: 05/11/19 07:40 05/11/19 07:40 Labs: Abnormal Lab Results - Last 24 Hours (Table) 05/10/19 05/10/19 05/11/19 Range/Units 17:19 21:33 06:56 WBC (3.8-10.6) k/uL RBC (3.80-5.40) m/uL Hgb (11.4-16.0) gm/dL Hct (34.0-46.0) % RDW (11.5-15.5) % Plt Count (150-450) k/uL BUN (7-17) mg/dL Glucose (74-99) mg/dL POC Glucose (mg/dL) 184 H 204 H 125 H (75-99) mg/dL Calcium (8.4-10.2) mg/dL AST (14-36) U/L Albumin (3.5-5.0) g/dL 05/11/19 05/11/19 05/11/19 Range/Units 07:40 07:40 11:29 WBC 0.5 L* (3.8-10.6) k/uL RBC 2.17 L (3.80-5.40) m/uL Hgb 6.9 L* (11.4-16.0) gm/dL Hct 20.2 L (34.0-46.0) % RDW 16.8 H (11.5-15.5) % Plt Count 57 L (150-450) k/uL BUN 18 H (7-17) mg/dL Glucose 116 H (74-99) mg/dL POC Glucose (mg/dL) 114 H (75-99) mg/dL Calcium 8.1 L (8.4-10.2) mg/dL AST 12 L (14-36) U/L Albumin 2.9 L (3.5-5.0) g/dL Assessment and Plan Plan: (1) Pancytopenia due to antineoplastic chemotherapy Narrative/Plan: White blood cell and ANC drop, as expected from chemotherapy, desired effect. Last count 16 on admission, down to 4. Now 0.5 No acute intervention with exception of adding prophylaxic coverage Hemoglobin is 6.9, ordered irradiated transfusion today . Transfusion for hemoglobin less than 7, be very conservative with transfusions. Platelet count is 74,000 today, no acute intervention. Transfuse for platelet count of less than 10,000 or if symptomatic. Irradiated blood products (2) 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 Cont treatment as prescribed Supportive medications ordered (3) Polyarthralgia ? if r/t AML. Improved with tylenol #3, pt is now able to ambulate with bilate ral leg braces and walker. D/W case wtih PT. Encouraged pt remove leg braces due to skin breakdown concerns and to evaluate pain and strength in the ankles. Encouraged her to follow PT instructions and use their support when doing therapy. Lisa infection of genital region Topical antifungal prescribed. - Nystatin swish and swallow prophylaxic prescribed as well, QT prolon with diflucan, if further infectious fungal presents benefit of systemic antifungal out weighs risk Plan: Antiviral, antifungal, antibacterial prescriptions all sent to patient's [facility] in [place]. Antibiotics Compazine prescription also sent. If patient is well enough and completes therapy on time she has a CBC follow-up appt on Tuesday at 9:15 AM, she will make further appointments at that time. <Francisco Carson - Last Filed: 05/11/19 17:55> Subjective The patient was nauseous throughout the morning but did not actually threw up. Symptoms are now improved with the use of antiemetics. She still able to maintain a reasonable by mouth intake appetite is diminished. No fever/chills. No obvious bleeding. Ankle pain is much improved and she is now able to walk without the boots Objective - Vital Signs Vital signs: Vital Signs Temp 97.1 F L 05/11/19 16:00 Pulse 77 05/11/19 16:00 Resp 17 05/11/19 16:00 BP 122/60 05/11/19 16:00 Pulse Ox 98 05/11/19 16:00 Intake & Output 05/10/19 05/11/19 05/11/19 18:59 06:59 18:59 Intake Total 1170 1462.50 1176 Balance 1170 1462.50 1176 Weight 98.2 kg Intake: Intake, IV Titration 1170 1462.50 1176 Amount Cytarabine/Pf 200 mg In 170 212.50 176 Sodium Chloride 0.9% 500 ml 500 ml @ 21.25 mls/hr IV Q24H LAST Rx#:[id number] Sodium Chloride 0.9% 1, 1000 1250 1000 000 ml @ 125 mls/hr IV . Q8H LAST Rx#:[id number] Other: Voiding Method Bedside Commode Bedside Commode Bedside Commode # Voids 15 3 - Constitutional General appearance: Present: no acute distress - EENT Eyes: Present: EOMI ENT: Present: hearing grossly normal, normal oropharynx - Respiratory Respiratory: bilateral: CTA - Cardiovascular Rhythm: regular Heart sounds: normal: S1, S2 - Gastrointestinal General gastrointestinal: Present: normal bowel sounds, soft - Integumentary Integumentary: Present: normal - Neurologic Neurologic: Present: CNII-XII intact - Musculoskeletal Musculoskeletal: Present: generalized weakness, strength equal bilaterally - Psychiatric Psychiatric: Present: A&O x's 3, appropriate affect - Labs CBC & Chem 7: 05/11/19 07:40 05/11/19 07:40 Labs: Abnormal Lab Results - Last 24 Hours (Table) 05/10/19 05/11/19 05/11/19 Range/Units 21:33 06:56 07:40 WBC (3.8-10.6) k/uL RBC (3.80-5.40) m/uL Hgb (11.4-16.0) gm/dL Hct (34.0-46.0) % RDW (11.5-15.5) % Plt Count (150-450) k/uL BUN 18 H (7-17) mg/dL Glucose 116 H (74-99) mg/dL POC Glucose (mg/dL) 204 H 125 H (75-99) mg/dL Calcium 8.1 L (8.4-10.2) mg/dL AST 12 L (14-36) U/L Albumin 2.9 L (3.5-5.0) g/dL 05/11/19 05/11/19 05/11/19 Range/Units 07:40 11:29 16:33 WBC 0.5 L* (3.8-10.6) k/uL RBC 2.17 L (3.80-5.40) m/uL Hgb 6.9 L* (11.4-16.0) gm/dL Hct 20.2 L (34.0-46.0) % RDW 16.8 H (11.5-15.5) % Plt Count 57 L (150-450) k/uL BUN (7-17) mg/dL Glucose (74-99) mg/dL POC Glucose (mg/dL) 114 H 126 H (75-99) mg/dL Calcium (8.4-10.2) mg/dL AST (14-36) U/L Albumin (3.5-5.0) g/dL Assessment and Plan (1) Acute myelomonocytic leukemia not having achieved remission Narrative/Plan: Current Visit: Yes Status: Acute Priority: High Code(s): C92.50 - ACUTE MYELOMONOCYTIC LEUKEMIA, NOT HAVING ACHIEVED REMISSION SNOMED Code(s): 352320725 (2) Polyarthralgia Current Visit: Yes Status: Acute Priority: High Code(s): M25.50 - PAIN IN UNSPECIFIED JOINT SNOMED Code(s): 38191498 (3) Bicytopenia Current Visit: Yes Status: Acute Priority: Medium Code(s): D75.89 - OTHER SPECIFIED DISEASES OF BLOOD AND BLOOD-FORMING ORGANS SNOMED Code(s): 44737501 Plan: As above. The patient achieving cytoreduction in a satisfactory manner, without evidence of tumor lysis. Continue treatment per protocol. 1 unit PRBC today. Muscle skeletal symptoms are markedly improved. There is no evidence of any joint swelling or tenderness on palpation. The patient is now able to walk without the walking boots. She was again advised to be very cautious while getting out of bed and ambulating in terms of preventing falls, as she would be at increased risk of significant bleeding as stated counts dropped further, in addition to other complications. She expressed understanding of the same
[2019-05-11] MEDS: FAMOTIDINE 20 MG/2 ML VIAL IV SCH (16:07)
[2019-05-11] MEDS: DEXAMETHASONE SOD PHOSPHATE 10 MG/ML 1 ML VIAL IV SCH (16:07)
[2019-05-11] MEDS: ONDANSETRON 16 MG in SODIUM CHLORIDE 0.9% 50 ML IVPB SCH (16:07)
[2019-05-11 16:35] LABS: Glucose,Whole Blood 126 mg/dL (75-99)
[2019-05-11] MEDS: SODIUM CHLORIDE 0.9% IV SCH (16:38)
[2019-05-11] MEDS: CYTARABINE IV SCH (16:38)
[2019-05-11] MEDS: NYSTATIN 100,000 UNIT/ML SUSP 500,000 UNIT/5 ML CUP PO SCH ×2 (17:43→21:24)
[2019-05-11 19:42] LABS: Glucose,Whole Blood 204 mg/dL (75-99)
[2019-05-11] MEDS: ACYCLOVIR 200 MG CAP PO SCH (21:24)
[2019-05-12] MEDS: Acetaminophen-Codeine 300-30mg TAB PO PRN ×3 (02:46→19:23)
[2019-05-12] MEDS: SODIUM CHLORIDE 0.9% 1,000 ML IV SCH ×3 (02:47→17:48)
[2019-05-12 07:04] LABS: Anisocytosis Slight; HCT 22.9 % (34.0-46.0); HGB 7.5 gm/dL (11.4-16.0); MCH 29.7 pg (25.0-35.0); MCHC 32.6 g/dL (31.0-37.0); MCV 91.2 fL (80.0-100.0); Mean Platelet Volume 14.2; RBC 2.51 m/uL (3.80-5.40); RDW 16.8 % (11.5-15.5)
[2019-05-12 07:16] LABS: ALT 12 U/L (9-52); AST 13 U/L (14-36); African American GFR (CKD) >90 (>60 ml/min/1.73 sqM); Alkaline Phosphatase 49 U/L (38-126); Anion Gap 7 mmol/L; Blood Urea Nitrogen 16 mg/dL (7-17); Calcium 8.1 mg/dL (8.4-10.2); Carbon Dioxide 26 mmol/L (22-30); Chloride 104 mmol/L (98-107); Glucose 119 mg/dL (74-99); Phosphorus 4.2 mg/dL (2.5-4.5); Potassium 4.3 mmol/L (3.5-5.1); Sodium 137 mmol/L (137-145); Total Bilirubin 0.6 mg/dL (0.2-1.3); Total Protein 6.5 g/dL (6.3-8.2); Uric Acid 3.2 mg/dL (3.7-7.4)
[2019-05-12 07:23] LABS: Platelet Count 52 k/uL (150-450); WBC 0.4 k/uL (3.8-10.6)
[2019-05-12 07:39] LABS: Glucose,Whole Blood 119 mg/dL (75-99)
[2019-05-12] MEDS: ONDANSETRON 4 MG/2 ML VIAL IVP PRN (07:53)
[2019-05-12 08:12] LABS: Rouleaux Present
[2019-05-12] MEDS: INSULIN ASPART (NovoLOG) 100 UNIT/ML VIAL SQ SCH ×4 (08:20→20:54)
[2019-05-12] MEDS: SALT AND SODA MOUTHWASH 1,000 ML PO SCH ×4 (08:30→20:28)
[2019-05-12] MEDS: CHOLECALCIFEROL 400 UNIT TAB PO SCH (08:31)
[2019-05-12] MEDS: ALLOPURINOL 300 MG TAB PO SCH (08:31)
[2019-05-12] MEDS: CITALOPRAM HYDROBROMIDE 20 MG TAB PO SCH (08:31)
[2019-05-12] MEDS: ACYCLOVIR 200 MG CAP PO SCH ×2 (08:31→20:27)
[2019-05-12] MEDS: NYSTATIN 100,000 UNIT/ML SUSP 500,000 UNIT/5 ML CUP PO SCH ×4 (08:32→20:27)
[2019-05-12] MEDS: LISINOPRIL-HCTZ 10-12.5 MG 1 EACH TAB PO SCH (08:32)
[2019-05-12] MEDS: metFORMIN 500 MG TAB PO SCH ×2 (08:32→20:27)
[2019-05-12] MEDS: NYSTATIN 100,000 UNIT/GM POWD 15 GM TOPICAL SCH ×2 (08:32→20:28)
[2019-05-12] MEDS: PRAVASTATIN SODIUM 20 MG TAB PO SCH (08:33)
[2019-05-12] MEDS: SENNOSIDES-DOCUSATE SODIUM 1 EACH TAB PO SCH ×2 (08:34→20:28)
--- NOTE | 2019-05-12 11:15 | P.PN ---
Subjective Progress Note Date: 05/12/19 The patient denied any significant nausea today. She continues to have fatigue, which is stable. Appetite remains somewhat diminished and taste alteration but she is maintaining a reasonable oral intake. No history of any fever/chills/vomiting/diarrhea. Ankle pain and swelling have not recurred Objective - Vital Signs Vital signs: Vital Signs Temp 97.7 F 05/12/19 07:43 Pulse 64 05/12/19 07:43 Resp 17 05/12/19 07:43 BP 144/86 05/12/19 07:43 Pulse Ox 98 05/12/19 07:43 Intake & Output 05/11/19 05/12/19 05/12/19 18:59 06:59 18:59 Intake Total 1176 1810 Balance 1176 1810 Weight 97.6 kg Intake: Intake, IV Titration 1176 1500 Amount Cytarabine/Pf 200 mg In 176 Sodium Chloride 0.9% 500 ml 500 ml @ 21.25 mls/hr IV Q24H LAST Rx#:[id number] Sodium Chloride 0.9% 1, 1000 1500 000 ml @ 125 mls/hr IV . Q8H LAST Rx#:[id number] Blood Product 310 Rc Irr As1 Unit 310 [id number] Other: Voiding Method Bedside Commode Bedside Commode # Voids 2 - Constitutional General appearance: Present: no acute distress - EENT Eyes: Present: EOMI ENT: Present: hearing grossly normal, normal oropharynx - Respiratory Respiratory: bilateral: CTA - Cardiovascular Rhythm: regular Heart sounds: normal: S1, S2 - Gastrointestinal General gastrointestinal: Present: normal bowel sounds, soft - Integumentary Integumentary: Present: normal - Neurologic Neurologic: Present: CNII-XII intact - Musculoskeletal Musculoskeletal: Present: generalized weakness, strength equal bilaterally - Psychiatric Psychiatric: Present: A&O x's 3, appropriate affect - Labs CBC & Chem 7: 05/12/19 06:20 05/12/19 06:20 Labs: Abnormal Lab Results - Last 24 Hours (Table) 05/11/19 05/11/19 05/11/19 Range/Units 11:29 14:22 16:33 WBC (3.8-10.6) k/uL RBC (3.80-5.40) m/uL Hgb (11.4-16.0) gm/dL Hct (34.0-46.0) % RDW (11.5-15.5) % Plt Count (150-450) k/uL Glucose (74-99) mg/dL POC Glucose (mg/dL) 114 H 126 H (75-99) mg/dL Uric Acid (3.7-7.4) mg/dL Calcium (8.4-10.2) mg/dL AST (14-36) U/L Albumin (3.5-5.0) g/dL Crossmatch See Detail 05/11/19 05/12/19 05/12/19 Range/Units 19:39 06:20 06:20 WBC 0.4 L* (3.8-10.6) k/uL RBC 2.51 L (3.80-5.40) m/uL Hgb 7.5 L (11.4-16.0) gm/dL Hct 22.9 L (34.0-46.0) % RDW 16.8 H (11.5-15.5) % Plt Count 52 L (150-450) k/uL Glucose 119 H (74-99) mg/dL POC Glucose (mg/dL) 204 H (75-99) mg/dL Uric Acid 3.2 L (3.7-7.4) mg/dL Calcium 8.1 L (8.4-10.2) mg/dL AST 13 L (14-36) U/L Albumin 3.0 L (3.5-5.0) g/dL Crossmatch 05/12/19 Range/Units 07:29 WBC (3.8-10.6) k/uL RBC (3.80-5.40) m/uL Hgb (11.4-16.0) gm/dL Hct (34.0-46.0) % RDW (11.5-15.5) % Plt Count (150-450) k/uL Glucose (74-99) mg/dL POC Glucose (mg/dL) 119 H (75-99) mg/dL Uric Acid (3.7-7.4) mg/dL Calcium (8.4-10.2) mg/dL AST (14-36) U/L Albumin (3.5-5.0) g/dL Crossmatch Assessment and Plan (1) 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 She had some nausea yesterday, which appears to have mostly resolved. She is otherwise tolerating chemotherapy quite well subjectively. No evidence of any tumor lysis by labs. Continue treatment per protocol with monitoring with clinical exams and labs, which have been ordered Current Visit: Yes Status: Acute Priority: High Code(s): C92.50 - ACUTE MYELOMONOCYTIC LEUKEMIA, NOT HAVING ACHIEVED REMISSION SNOMED Code(s): 684466803 (2) Polyarthralgia Narrative/Plan: This is markedly improved since starting chemotherapy. At this time on exam there is no significant ankle or percussibly swelling. Patient is now able to ambulate without the walking boots. Thus it appears that the arthralgias were likely related to the leukemia (? immune inflammatory reaction versus direct on specific infiltration versus other) Current Visit: Yes Status: Acute Priority: High Code(s): M25.50 - PAIN IN UNSPECIFIED JOINT SNOMED Code(s): 64064728 (3) Pancytopenia due to antineoplastic chemotherapy Narrative/Plan: The patient is having progressive drop in counts due to chemotherapy, which is expected. Continue to monitor with supportive transfusions as needed. Hemoglobin and platelets are in the safe range today with transfusion is not re quired. Continue to monitor Current Visit: Yes Status: Acute Priority: High Code(s): D61.810 - ANTINEOPLASTIC CHEMOTHERAPY INDUCED PANCYTOPENIA; T45.1X5A - ADVERSE EFFECT OF ANTINEOPLASTIC AND IMMUNOSUP DRUGS, INIT SNOMED Code(s): 699401297618522
[2019-05-12 11:59] LABS: Glucose,Whole Blood 106 mg/dL (75-99)
--- NOTE | 2019-05-12 14:15 | P.PN ---
Subjective Progress Note Date: 05/12/19 This is a 64-year-old patient of Dr. miller. Patient presents for inpatient chemotherapy admitted to oncology services. Patient was recently admitted on 04/10/2019 for multiple joint swelling along with abnormal CBC with increased blastocyte. Patient underwent but bone marrow aspiration biopsy on 04/13/2019. Per oncology service is findings consistent with acute myeloid leukemia. Additional medical history includes diabetes mellitus, hyperlipidemia and hypertension. Patient had PICC line placed to receive chemotherapy. Patient planning first round of chemotherapy today patient will require hospitalization for 7 days. This time patient denies any chest pain or shortness breath. Patient denies nausea vomiting or diarrhea. Patient denies any urinary burning or frequency. She does reports she still having chronic pain due to multiple joint swelling. 2-D echo completed showing EF of 60-65%. On 05/08/2019 patient underwent prescribed chemotherapy yesterday. Patient reports that she is feeling well. Small amount of nausea. Patient reports improvement with her joint discomfort. Patient denies any chest pain or shortness of breath patient denies nausea vomiting or diarrhea. Patient denies any urinary burning or frequency. On 05/09/2019 patient is alert and oriented 3. Patient reports a small amount of nausea but states overall she is feeling well. Patient did receive 1 unit of PRBCs for hemoglobin 6. 9. Repeat hemoglobin 7.9. At this time patient denies chest pain or shortness breath. Patient denies nausea vomiting diarrhea. Patient denies any urinary burning or frequency. On 05/10/2019 patient's alert and oriented 3 patient is still having some nausea and feels overall well. Patient reports improvement with her joint discomfort hemoglobin 7.1. Patient denies any sores in mouth. Patient denies any rashes or open lesions. Patient denies nausea vomiting or diarrhea. UA was negative On 05/11/2019 patient's alert and oriented 3. Patient complains of some nausea but is controlled with medication and blas angel. Patient has been tolerating chemo. Plan for discharge on Tuesday. Patient denies any chest pain or shortness breath. Patient denies nausea vomiting or diarrhea. Patient denies any urinary burning or frequency. On 05/12/2019 patient was seen and examined on the oncology floor she is alert and oriented 3 in no apparent distress very pleasant complaining of nausea otherwise she denies any complaints there is no fever or chills no headache or dizziness no chest pain no shortness of breath no cough no nausea or vomiting no abdominal pain no diarrhea and no urinary symptoms Objective - Vital Signs Vital signs: Vital Signs Temp 97.9 F 05/12/19 12:00 Pulse 70 05/12/19 12:00 Resp 17 05/12/19 12:00 BP 155/72 05/12/19 12:00 Pulse Ox 98 05/12/19 12:00 Intake & Output 05/11/19 05/12/19 05/12/19 18:59 06:59 18:59 Intake Total 1176 1810 360 Balance 1176 1810 360 Weight 97.6 kg Intake: Intake, IV Titration 1176 1500 Amount Cytarabine/Pf 200 mg In 176 Sodium Chloride 0.9% 500 ml 500 ml @ 21.25 mls/hr IV Q24H LAST Rx#:[id number] Sodium Chloride 0.9% 1, 1000 1500 000 ml @ 125 mls/hr IV . Q8H LAST Rx#:[id number] Oral 360 Blood Product 310 Rc Irr As1 Unit 310 [id number] Other: Voiding Method Bedside Commode Bedside Commode Bedside Commode # Voids 2 2 # Bowel Movements 1 - Exam In general patient is alert and oriented 3 in no apparent distress Head normocephalic and atraumatic Neck supple no JVD no goiter Lungs clear to auscultation bilaterally no wheezing or crackles Heart regular rate and rhythm S1-S2, no rub or gallop Abdomen is soft nontender nondistended positive bowel sounds no hepatosplenomegaly Extremities no edema. Bilateral leg boots in place Neuro alert and orientated to 3 - Labs CBC & Chem 7: 05/12/19 06:20 05/12/19 06:20 Labs: Abnormal Lab Results - Last 24 Hours (Table) 05/11/19 05/11/19 05/11/19 Range/Units 14:22 16:33 19:39 WBC (3.8-10.6) k/uL RBC (3.80-5.40) m/uL Hgb (11.4-16.0) gm/dL Hct (34.0-46.0) % RDW (11.5-15.5) % Plt Count (150-450) k/uL Glucose (74-99) mg/dL POC Glucose (mg/dL) 126 H 204 H (75-99) mg/dL Uric Acid (3.7-7.4) mg/dL Calcium (8.4-10.2) mg/dL AST (14-36) U/L Albumin (3.5-5.0) g/dL Crossmatch See Detail 05/12/19 05/12/19 05/12/19 Range/Units 06:20 06:20 07:29 WBC 0.4 L* (3.8-10.6) k/uL RBC 2.51 L (3.80-5.40) m/uL Hgb 7.5 L (11.4-16.0) gm/dL Hct 22.9 L (34.0-46.0) % RDW 16.8 H (11.5-15.5) % Plt Count 52 L (150-450) k/uL Glucose 119 H (74-99) mg/dL POC Glucose (mg/dL) 119 H (75-99) mg/dL Uric Acid 3.2 L (3.7-7.4) mg/dL Calcium 8.1 L (8.4-10.2) mg/dL AST 13 L (14-36) U/L Albumin 3.0 L (3.5-5.0) g/dL Crossmatch 05/12/19 Range/Units 11:45 WBC (3.8-10.6) k/uL RBC (3.80-5.40) m/uL Hgb (11.4-16.0) gm/dL Hct (34.0-46.0) % RDW (11.5-15.5) % Plt Count (150-450) k/uL Glucose (74-99) mg/dL POC Glucose (mg/dL) 106 H (75-99) mg/dL Uric Acid (3.7-7.4) mg/dL Calcium (8.4-10.2) mg/dL AST (14-36) U/L Albumin (3.5-5.0) g/dL Crossmatch Assessment and Plan Plan: 1. Acute myelomonocytic leukemia. Patient remained for inpatient chemotherapy. Patient admitted to oncology services. Patient is currently on day 3 of induction chemotherapy with a 7+3 regimen 2. Multiple joint pain due to acute myeloid leukemia. Home meds resumed. Joint pain improving with chemotherapy 3. History of essential hypertension 4. Diabetes mellitus. Metformin reordered sliding scale insulin at that 5. History of hyperlipidemia 6. 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 Hemoglobin 6.7. Patient received 1 unit of PRBCs. 7. Bicytopenia. Due to underlining AML. Oncology service is following
[2019-05-12] MEDS: ONDANSETRON 16 MG in SODIUM CHLORIDE 0.9% 50 ML IVPB SCH (14:47)
[2019-05-12] MEDS: DEXAMETHASONE SOD PHOSPHATE 10 MG/ML 1 ML VIAL IV SCH (14:51)
[2019-05-12] MEDS: FAMOTIDINE 20 MG/2 ML VIAL IV SCH (14:51)
[2019-05-12] MEDS: SODIUM CHLORIDE 0.9% IV SCH (15:17)
[2019-05-12] MEDS: CYTARABINE IV SCH (15:17)
[2019-05-12 16:49] LABS: Glucose,Whole Blood 137 mg/dL (75-99)
[2019-05-12 20:45] LABS: Glucose,Whole Blood 189 mg/dL (75-99)
[2019-05-13] MEDS: SODIUM CHLORIDE 0.9% 1,000 ML IV SCH ×3 (04:59→18:41)
[2019-05-13] MEDS: ONDANSETRON 4 MG/2 ML VIAL IVP PRN (06:18)
[2019-05-13] MEDS: Acetaminophen-Codeine 300-30mg TAB PO PRN ×3 (06:21→21:39)
[2019-05-13 06:49] LABS: Anisocytosis Slight; HGB 7.6 gm/dL (11.4-16.0); MCH 30.5 pg (25.0-35.0); MCV 92.5 fL (80.0-100.0); Mean Platelet Volume 13.1; RBC 2.49 m/uL (3.80-5.40); RDW 16.4 % (11.5-15.5)
[2019-05-13 06:54] LABS: ALT 15 U/L (9-52); AST 14 U/L (14-36); African American GFR (CKD) >90 (>60 ml/min/1.73 sqM); Albumin 3.1 g/dL (3.5-5.0); Alkaline Phosphatase 50 U/L (38-126); Anion Gap 7 mmol/L; Blood Urea Nitrogen 14 mg/dL (7-17); Calcium 8.2 mg/dL (8.4-10.2); Carbon Dioxide 28 mmol/L (22-30); Chloride 103 mmol/L (98-107); Glucose 95 mg/dL (74-99); Potassium 3.9 mmol/L (3.5-5.1); Sodium 138 mmol/L (137-145); Total Bilirubin 0.7 mg/dL (0.2-1.3); Total Protein 6.7 g/dL (6.3-8.2)
[2019-05-13 06:58] LABS: WBC 0.4 k/uL (3.8-10.6)
[2019-05-13 06:59] LABS: Platelet Count 44 k/uL (150-450)
[2019-05-13 07:33] LABS: Large Platelets Present
[2019-05-13 07:41] LABS: Glucose,Whole Blood 94 mg/dL (75-99)
[2019-05-13] MEDS: INSULIN ASPART (NovoLOG) 100 UNIT/ML VIAL SQ SCH ×4 (07:46→21:31)
[2019-05-13] MEDS: SENNOSIDES-DOCUSATE SODIUM 1 EACH TAB PO SCH ×2 (07:55→22:13)
[2019-05-13] MEDS: NYSTATIN 100,000 UNIT/ML SUSP 500,000 UNIT/5 ML CUP PO SCH ×4 (07:57→22:14)
[2019-05-13] MEDS: NYSTATIN 100,000 UNIT/GM POWD 15 GM TOPICAL SCH ×2 (07:57→22:14)
[2019-05-13] MEDS: ACYCLOVIR 200 MG CAP PO SCH ×2 (07:58→21:31)
[2019-05-13] MEDS: SALT AND SODA MOUTHWASH 1,000 ML PO SCH ×4 (07:58→22:14)
[2019-05-13] MEDS: ALLOPURINOL 300 MG TAB PO SCH ×2 (07:59→08:00)
[2019-05-13] MEDS: CHOLECALCIFEROL 400 UNIT TAB PO SCH ×2 (07:59→08:00)
[2019-05-13] MEDS: PRAVASTATIN SODIUM 20 MG TAB PO SCH (07:59)
[2019-05-13] MEDS: metFORMIN 500 MG TAB PO SCH ×2 (08:00→21:31)
[2019-05-13] MEDS: CITALOPRAM HYDROBROMIDE 20 MG TAB PO SCH (08:04)
[2019-05-13] MEDS: LISINOPRIL-HCTZ 10-12.5 MG 1 EACH TAB PO SCH (08:04)
--- NOTE | 2019-05-13 11:18 | P.PN ---
Subjective Progress Note Date: 05/13/19 The patient is complaining of diarrhea today, about 3 episodes of her. She also complains of some increased nausea. No fevers/chills/mouth sores. Objective - Vital Signs Vital signs: Vital Signs Temp 97.3 F L 05/13/19 08:00 Pulse 63 05/13/19 08:30 Resp 16 05/13/19 08:30 BP 134/68 05/13/19 08:00 Pulse Ox 98 05/13/19 08:00 Intake & Output 05/12/19 05/13/19 05/13/19 18:59 06:59 18:59 Intake Total 360 Balance 360 Weight 97.3 kg Intake: Oral 360 Other: Voiding Method Bedside Commode Bedside Commode Bedside Commode # Voids 2 3 3 # Bowel Movements 1 - Constitutional General appearance: Present: no acute distress - EENT Eyes: Present: EOMI ENT: Present: hearing grossly normal, normal oropharynx - Respiratory Respiratory: bilateral: CTA - Cardiovascular Rhythm: regular Heart sounds: normal: S1, S2 - Gastrointestinal General gastrointestinal: Present: normal bowel sounds, soft - Integumentary Integumentary: Present: normal - Neurologic Neurologic: Present: CNII-XII intact - Musculoskeletal Musculoskeletal: Present: generalized weakness, strength equal bilaterally - Labs CBC & Chem 7: 05/13/19 06:28 05/13/19 06:28 Labs: Abnormal Lab Results - Last 24 Hours (Table) 05/12/19 05/12/19 05/12/19 Range/Units 11:45 16:46 20:43 WBC (3.8-10.6) k/uL RBC (3.80-5.40) m/uL Hgb (11.4-16.0) gm/dL Hct (34.0-46.0) % RDW (11.5-15.5) % Plt Count (150-450) k/uL POC Glucose (mg/dL) 106 H 137 H 189 H (75-99) mg/dL Uric Acid (3.7-7.4) mg/dL Calcium (8.4-10.2) mg/dL Albumin (3.5-5.0) g/dL 05/13/19 05/13/19 Range/Units 06:28 06:28 WBC 0.4 L* (3.8-10.6) k/uL RBC 2.49 L (3.80-5.40) m/uL Hgb 7.6 L (11.4-16.0) gm/dL Hct 23.0 L (34.0-46.0) % RDW 16.4 H (11.5-15.5) % Plt Count 44 L (150-450) k/uL POC Glucose (mg/dL) (75-99) mg/dL Uric Acid 3.0 L (3.7-7.4) mg/dL Calcium 8.2 L (8.4-10.2) mg/dL Albumin 3.1 L (3.5-5.0) g/dL Assessment and Plan (1) 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 No evidence of tumor lysis. Cytoreduction procedures in the satisfactory manner. The patient is reporting some new symptoms today, which clinically are probably more related to her diet rather than chemotherapy effect, as they have been quite intermittent. Continue treatment per protocol with ongoing clinical and lab monitoring. Current Visit: Yes Status: Acute Priority: High Code(s): C92.50 - ACUTE MYELOMONOCYTIC LEUKEMIA, NOT HAVING ACHIEVED REMISSION SNOMED Code(s): 071206042 (2) Polyarthralgia Narrative/Plan: Marked improvement as noted previously. The symptoms have not recurred. Current Visit: Yes Status: Acute Priority: High Code(s): M25.50 - PAIN IN UNSPECIFIED JOINT SNOMED Code(s): 22341664 (3) Pancytopenia due to antineoplastic chemotherapy Narrative/Plan: Cytoreduction is satisfactory due to the effects of chemotherapy. Continue to monitor with supportive transfusions as needed to keep hemoglobin greater than 7 and platelets greater than 10. Current Visit: Yes Status: Acute Priority: High Code(s): D61.810 - ANTINEOPLASTIC CHEMOTHERAPY INDUCED PANCYTOPENIA; T45.1X5A - ADVERSE EFFECT OF ANTINEOPLASTIC AND IMMUNOSUP DRUGS, INIT SNOMED Code(s): 927152329584668 Plan: The patient notes some new GI symptoms today. This is clinically more likely to be related to her diet, she states that she ate significantly more yesterday compared to what she had been eating previously, including some fresh fruit. Continue supportive treatment with antibiotics. Stool testing will be ordered to rule out C. diff. If negative antidiarrheals will be utilized as needed
--- NOTE | 2019-05-13 11:21 | P.PN ---
Subjective Progress Note Date: 05/13/19 This is a 64-year-old patient of Dr. miller. Patient presents for inpatient chemotherapy admitted to oncology services. Patient was recently admitted on 04/10/2019 for multiple joint swelling along with abnormal CBC with increased blastocyte. Patient underwent but bone marrow aspiration biopsy on 04/13/2019. Per oncology service is findings consistent with acute myeloid leukemia. Additional medical history includes diabetes mellitus, hyperlipidemia and hypertension. Patient had PICC line placed to receive chemotherapy. Patient planning first round of chemotherapy today patient will require hospitalization for 7 days. This time patient denies any chest pain or shortness breath. Patient denies nausea vomiting or diarrhea. Patient denies any urinary burning or frequency. She does reports she still having chronic pain due to multiple joint swelling. 2-D echo completed showing EF of 60-65%. On 05/08/2019 patient underwent prescribed chemotherapy yesterday. Patient reports that she is feeling well. Small amount of nausea. Patient reports improvement with her joint discomfort. Patient denies any chest pain or shortness of breath patient denies nausea vomiting or diarrhea. Patient denies any urinary burning or frequency. On 05/09/2019 patient is alert and oriented 3. Patient reports a small amount of nausea but states overall she is feeling well. Patient did receive 1 unit of PRBCs for hemoglobin 6. 9. Repeat hemoglobin 7.9. At this time patient denies chest pain or shortness breath. Patient denies nausea vomiting diarrhea. Patient denies any urinary burning or frequency. On 05/10/2019 patient's alert and oriented 3 patient is still having some nausea and feels overall well. Patient reports improvement with her joint discomfort hemoglobin 7.1. Patient denies any sores in mouth. Patient denies any rashes or open lesions. Patient denies nausea vomiting or diarrhea. UA was negative On 05/11/2019 patient's alert and oriented 3. Patient complains of some nausea but is controlled with medication and blas angel. Patient has been tolerating chemo. Plan for discharge on Tuesday. Patient denies any chest pain or shortness breath. Patient denies nausea vomiting or diarrhea. Patient denies any urinary burning or frequency. On 05/12/2019 patient was seen and examined on the oncology floor she is alert and oriented 3 in no apparent distress very pleasant complaining of nausea otherwise she denies any complaints there is no fever or chills no headache or dizziness no chest pain no shortness of breath no cough no nausea or vomiting no abdominal pain no diarrhea and no urinary symptoms On 05/13/2018 patient remains alert and oriented 3. Patient complaining some nausea and sleepiness but denies any other acute symptoms. Patient denies chest pain or shortness breath. Patient denies any urinary burning or frequency. Hemoglobin stable at 7.6 Objective - Vital Signs Vital signs: Vital Signs Temp 97.3 F L 05/13/19 08:00 Pulse 63 05/13/19 08:30 Resp 16 05/13/19 08:30 BP 134/68 05/13/19 08:00 Pulse Ox 98 05/13/19 08:00 Intake & Output 05/12/19 05/13/19 05/13/19 18:59 06:59 18:59 Intake Total 360 Balance 360 Weight 97.3 kg Intake: Oral 360 Other: Voiding Method Bedside Commode Bedside Commode Bedside Commode # Voids 2 3 3 # Bowel Movements 1 - Exam Head normocephalic Neck supple Lungs clear to auscultation bilaterally no wheezing or crackles Heart regular rate and rhythm S1-S2, no rub or gallop Abdomen is soft nontender nondistended positive bowel sounds no hepatosplenomegaly Extremities no edema. Bilateral leg boots in place Neuro alert and orientated to 3 - Labs CBC & Chem 7: 05/13/19 06:28 05/13/19 06:28 Labs: Abnormal Lab Results - Last 24 Hours (Table) 05/12/19 05/12/19 05/12/19 Range/Units 11:45 16:46 20:43 WBC (3.8-10.6) k/uL RBC (3.80-5.40) m/uL Hgb (11.4-16.0) gm/dL Hct (34.0-46.0) % RDW (11.5-15.5) % Plt Count (150-450) k/uL POC Glucose (mg/dL) 106 H 137 H 189 H (75-99) mg/dL Uric Acid (3.7-7.4) mg/dL Calcium (8.4-10.2) mg/dL Albumin (3.5-5.0) g/dL 05/13/19 05/13/19 Range/Units 06:28 06:28 WBC 0.4 L* (3.8-10.6) k/uL RBC 2.49 L (3.80-5.40) m/uL Hgb 7.6 L (11.4-16.0) gm/dL Hct 23.0 L (34.0-46.0) % RDW 16.4 H (11.5-15.5) % Plt Count 44 L (150-450) k/uL POC Glucose (mg/dL) (75-99) mg/dL Uric Acid 3.0 L (3.7-7.4) mg/dL Calcium 8.2 L (8.4-10.2) mg/dL Albumin 3.1 L (3.5-5.0) g/dL Assessment and Plan Assessment: 1. Acute myelomonocytic leukemia. Patient remained for inpatient chemotherapy. Patient admitted to oncology services. Patient is currently on day 6 of induction chemotherapy with a 7+3 regimen 2. Multiple joint pain due to acute myeloid leukemia. Home meds resumed. Joint pain improving with chemotherapy 3. History of essential hypertension 4. Diabetes mellitus. Metformin reordered sliding scale insulin at that 5. History of hyperlipidemia 6. 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 Hemoglobin 6.7. Patient received 2 unit of PRBCs. Globin 7.6 7. Bicytopenia. Due to underlining AML. Oncology service is following I performed an examination of the patient and discussed their management with the Nurse Practitioner. I have reviewed the Nurse Practitioner's notes and agree with the documented findings and plan of care
[2019-05-13 11:31] LABS: Glucose,Whole Blood 92 mg/dL (75-99)
[2019-05-13] MEDS: ONDANSETRON 16 MG in SODIUM CHLORIDE 0.9% 50 ML IVPB SCH (14:49)
[2019-05-13] MEDS: FAMOTIDINE 20 MG/2 ML VIAL IV SCH (16:45)
[2019-05-13] MEDS: DEXAMETHASONE SOD PHOSPHATE 10 MG/ML 1 ML VIAL IV SCH (16:45)
[2019-05-13] MEDS: SODIUM CHLORIDE 0.9% IV SCH (16:48)
[2019-05-13] MEDS: CYTARABINE IV SCH (16:48)
[2019-05-13 17:14] LABS: Glucose,Whole Blood 111 mg/dL (75-99)
[2019-05-13 20:20] LABS: Glucose,Whole Blood 197 mg/dL (75-99)
[2019-05-14] MEDS: SODIUM CHLORIDE 0.9% 1,000 ML IV SCH ×3 (01:15→17:42)
[2019-05-14 06:58] LABS: Glucose,Whole Blood 108 mg/dL (75-99)
[2019-05-14] MEDS: INSULIN ASPART (NovoLOG) 100 UNIT/ML VIAL SQ SCH ×4 (08:32→21:14)
[2019-05-14] MEDS: ACYCLOVIR 200 MG CAP PO SCH ×2 (08:36→21:10)
[2019-05-14] MEDS: CITALOPRAM HYDROBROMIDE 20 MG TAB PO SCH (08:36)
[2019-05-14] MEDS: ALLOPURINOL 300 MG TAB PO SCH (08:36)
[2019-05-14] MEDS: metFORMIN 500 MG TAB PO SCH ×2 (08:37→21:10)
[2019-05-14] MEDS: SENNOSIDES-DOCUSATE SODIUM 1 EACH TAB PO SCH ×2 (08:37→21:12)
[2019-05-14] MEDS: NYSTATIN 100,000 UNIT/ML SUSP 500,000 UNIT/5 ML CUP PO SCH ×4 (08:37→21:12)
[2019-05-14] MEDS: LISINOPRIL-HCTZ 10-12.5 MG 1 EACH TAB PO SCH (08:37)
[2019-05-14] MEDS: CHOLECALCIFEROL 400 UNIT TAB PO SCH (08:38)
[2019-05-14] MEDS: SALT AND SODA MOUTHWASH 1,000 ML PO SCH ×4 (08:39→21:12)
[2019-05-14] MEDS: PRAVASTATIN SODIUM 20 MG TAB PO SCH (08:39)
[2019-05-14] MEDS: ONDANSETRON 4 MG/2 ML VIAL IVP PRN ×3 (08:48→21:14)
[2019-05-14] MEDS: NYSTATIN 100,000 UNIT/GM POWD 15 GM TOPICAL SCH ×2 (09:04→21:12)
[2019-05-14 09:14] LABS: HCT 22.9 % (34.0-46.0); HGB 7.4 gm/dL (11.4-16.0); MCH 29.8 pg (25.0-35.0); MCHC 32.2 g/dL (31.0-37.0); MCV 92.6 fL (80.0-100.0); Mean Platelet Volume 12.9; RBC 2.48 m/uL (3.80-5.40); RDW 15.8 % (11.5-15.5)
[2019-05-14 09:18] LABS: Platelet Count 33 k/uL (150-450); WBC 0.3 k/uL (3.8-10.6)
[2019-05-14 09:43] LABS: ALT 13 U/L (9-52); AST 13 U/L (14-36); African American GFR (CKD) >90 (>60 ml/min/1.73 sqM); Alkaline Phosphatase 51 U/L (38-126); Anion Gap 8 mmol/L; Blood Urea Nitrogen 12 mg/dL (7-17); Calcium 8.1 mg/dL (8.4-10.2); Carbon Dioxide 27 mmol/L (22-30); Chloride 102 mmol/L (98-107); Glucose 98 mg/dL (74-99); Potassium 3.8 mmol/L (3.5-5.1); Sodium 137 mmol/L (137-145); Total Bilirubin 0.6 mg/dL (0.2-1.3); Total Protein 6.4 g/dL (6.3-8.2); Uric Acid 2.6 mg/dL (3.7-7.4)
--- NOTE | 2019-05-14 10:01 | P.PN ---
Subjective Progress Note Date: 05/14/19 This is a 64-year-old patient of Dr. miller. Patient presents for inpatient chemotherapy admitted to oncology services. Patient was recently admitted on 04/10/2019 for multiple joint swelling along with abnormal CBC with increased blastocyte. Patient underwent but bone marrow aspiration biopsy on 04/13/2019. Per oncology service is findings consistent with acute myeloid leukemia. Additional medical history includes diabetes mellitus, hyperlipidemia and hypertension. Patient had PICC line placed to receive chemotherapy. Patient planning first round of chemotherapy today patient will require hospitalization for 7 days. This time patient denies any chest pain or shortness breath. Patient denies nausea vomiting or diarrhea. Patient denies any urinary burning or frequency. She does reports she still having chronic pain due to multiple joint swelling. 2-D echo completed showing EF of 60-65%. On 05/08/2019 patient underwent prescribed chemotherapy yesterday. Patient reports that she is feeling well. Small amount of nausea. Patient reports improvement with her joint discomfort. Patient denies any chest pain or shortness of breath patient denies nausea vomiting or diarrhea. Patient denies any urinary burning or frequency. On 05/09/2019 patient is alert and oriented 3. Patient reports a small amount of nausea but states overall she is feeling well. Patient did receive 1 unit of PRBCs for hemoglobin 6. 9. Repeat hemoglobin 7.9. At this time patient denies chest pain or shortness breath. Patient denies nausea vomiting diarrhea. Patient denies any urinary burning or frequency. On 05/10/2019 patient's alert and oriented 3 patient is still having some nausea and feels overall well. Patient reports improvement with her joint discomfort hemoglobin 7.1. Patient denies any sores in mouth. Patient denies any rashes or open lesions. Patient denies nausea vomiting or diarrhea. UA was negative On 05/11/2019 patient's alert and oriented 3. Patient complains of some nausea but is controlled with medication and blas angel. Patient has been tolerating chemo. Plan for discharge on Tuesday. Patient denies any chest pain or shortness breath. Patient denies nausea vomiting or diarrhea. Patient denies any urinary burning or frequency. On 05/12/2019 patient was seen and examined on the oncology floor she is alert and oriented 3 in no apparent distress very pleasant complaining of nausea otherwise she denies any complaints there is no fever or chills no headache or dizziness no chest pain no shortness of breath no cough no nausea or vomiting no abdominal pain no diarrhea and no urinary symptoms On 05/13/2018 patient remains alert and oriented 3. Patient complaining some nausea and sleepiness but denies any other acute symptoms. Patient denies chest pain or shortness breath. Patient denies any urinary burning or frequency. Hemoglobin stable at 7.6 On 05/14/2019 patient's alert and oriented 3. Patient to receive a dose of chemotherapy today. Hemoglobin 7.4. Patient is having loose stools C. diff sample ordered per oncology. Patient complains of nausea. Patient denies any chest pain or shortness of breath. Patient denies any urinary burning or frequency Objective - Vital Signs Vital signs: Vital Signs Temp 98.1 F 05/14/19 07:50 Pulse 70 05/14/19 07:50 Resp 16 05/14/19 07:50 BP 130/60 05/14/19 07:50 Pulse Ox 96 05/14/19 07:50 Intake & Output 05/13/19 05/14/19 05/14/19 18:59 06:59 18:59 Intake Total 360 2090 Balance 360 2090 Weight 97 kg Intake: Intake, IV Titration 750 Amount Sodium Chloride 0.9% 1, 750 000 ml @ 125 mls/hr IV . Q8H [facility] Rx#:[id number] Oral 360 1340 Other: Voiding Method Bedside Commode Bedside Commode Bedside Commode # Voids 4 1 # Bowel Movements 1 1 - Exam Head normocephalic Neck supple Lungs clear to auscultation bilaterally no wheezing or crackles Heart regular rate and rhythm S1-S2, no rub or gallop Abdomen is soft nontender nondistended positive bowel sounds no hepatosplenomegaly Extremities no edema. Bilateral leg boots in place Neuro alert and orientated to 3 - Labs CBC & Chem 7: 05/14/19 08:42 05/14/19 08:42 Labs: Abnormal Lab Results - Last 24 Hours (Table) 05/13/19 05/13/19 05/14/19 Range/Units 17:08 20:19 06:57 WBC (3.8-10.6) k/uL RBC (3.80-5.40) m/uL Hgb (11.4-16.0) gm/dL Hct (34.0-46.0) % RDW (11.5-15.5) % Plt Count (150-450) k/uL POC Glucose (mg/dL) 111 H 197 H 108 H (75-99) mg/dL Uric Acid (3.7-7.4) mg/dL Calcium (8.4-10.2) mg/dL AST (14-36) U/L Albumin (3.5-5.0) g/dL 05/14/19 05/14/19 Range/Units 08:42 08:42 WBC 0.3 L* (3.8-10.6) k/uL RBC 2.48 L (3.80-5.40) m/uL Hgb 7.4 L (11.4-16.0) gm/dL Hct 22.9 L (34.0-46.0) % RDW 15.8 H (11.5-15.5) % Plt Count 33 L (150-450) k/uL POC Glucose (mg/dL) (75-99) mg/dL Uric Acid 2.6 L (3.7-7.4) mg/dL Calcium 8.1 L (8.4-10.2) mg/dL AST 13 L (14-36) U/L Albumin 3.0 L (3.5-5.0) g/dL Assessment and Plan Assessment: 1. Acute myelomonocytic leukemia. Patient remained for inpatient chemotherapy. Patient admitted to oncology services. She to receive a stress chemotherapy today per oncology 2. Multiple joint pain due to acute myeloid leukemia. Home meds resumed. Joint pain improving with chemotherapy 3. History of essential hypertension 4. Diabetes mellitus. Metformin reordered sliding scale insulin at that 5. History of hyperlipidemia 6. 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 Hemoglobin 6.7. Patient received 2 unit of PRBCs. hgb 7.4 7. Bicytopenia. Due to underlining AML. Oncology service is following 8. Loose stools. C. diff sample ordered per oncology I performed an examination of the patient and discussed their management with the Nurse Practitioner. I have reviewed the Nurse Practitioner's notes and agree with the documented findings and plan of care
[2019-05-14 11:12] LABS: Glucose,Whole Blood 98 mg/dL (75-99)
[2019-05-14] MEDS: Acetaminophen-Codeine 300-30mg TAB PO PRN ×2 (12:02→17:46)
--- NOTE | 2019-05-14 14:12 | P.PN ---
Subjective Progress Note Date: 05/14/19 Principal diagnosis: AML, admitted for induction chemo with 7+3 regimen In follow-up today patient is doing well other then diarrhea, started in the last 2 days, persistent, no black or bloody stool, mild nausea controlled with antiemetics, denies fevers, oral irritation, sore throat, cough, dysuria, hematuria, bleeding or swelling. Objective - Vital Signs Vital signs: Vital Signs Temp 98.7 F 05/14/19 12:00 Pulse 72 05/14/19 12:00 Resp 20 05/14/19 12:00 BP 153/72 05/14/19 12:00 Pulse Ox 98 05/14/19 12:00 Intake & Output 05/13/19 05/14/19 05/14/19 18:59 06:59 18:59 Intake Total 360 2090 Balance 360 2090 Weight 97 kg 97 kg Intake: Intake, IV Titration 750 Amount Sodium Chloride 0.9% 1, 750 000 ml @ 125 mls/hr IV . Q8H [facility] Rx#:[id number] Oral 360 1340 Other: Voiding Method Bedside Commode Bedside Commode Bedside Commode # Voids 4 1 # Bowel Movements 1 1 - Constitutional General appearance: Present: average body habitus, cooperative, no acute distress - EENT Eyes: Present: anicteric sclerae, EOMI ENT: Present: hearing grossly normal, normal oropharynx - Respiratory Respiratory: bilateral: CTA - Cardiovascular Rhythm: regular Heart sounds: normal: S1, S2 Abnormal Heart Sounds: Absent: systolic murmur, diastolic murmur, rub, S3 Gallop, S4 Gallop, click, other - Peripheral edema leg Peripheral Edema: bilateral: Trace - Gastrointestinal General gastrointestinal: Present: normal bowel sounds, soft, tenderness (very mild). Absent: absent bowel sounds, decreased bowel sounds, distended, hepatomegaly, hyperactive bowel sounds, organomegaly, rigid, scaphoid, s plenomegaly, umbilical hernia, ventral hernia - Neurologic Neurologic: Present: CNII-XII intact - Musculoskeletal Musculoskeletal: Present: strength equal bilaterally - Psychiatric Psychiatric: Present: A&O x's 3, appropriate affect, intact judgment & insight - Labs CBC & Chem 7: 05/14/19 08:42 05/14/19 08:42 Labs: Abnormal Lab Results - Last 24 Hours (Table) 07/05/13/19 05/14/19 Range/Units 17:08 20:19 06:57 WBC (3.8-10.6) k/uL RBC (3.80-5.40) m/uL Hgb (11.4-16.0) gm/dL Hct (34.0-46.0) % RDW (11.5-15.5) % Plt Count (150-450) k/uL POC Glucose (mg/dL) 111 H 197 H 108 H (75-99) mg/dL Uric Acid (3.7-7.4) mg/dL Calcium (8.4-10.2) mg/dL AST (14-36) U/L Albumin (3.5-5.0) g/dL 05/14/19 05/14/19 Range/Units 08:42 08:42 WBC 0.3 L* (3.8-10.6) k/uL RBC 2.48 L (3.80-5.40) m/uL Hgb 7.4 L (11.4-16.0) gm/dL Hct 22.9 L (34.0-46.0) % RDW 15.8 H (11.5-15.5) % Plt Count 33 L (150-450) k/uL POC Glucose (mg/dL) (75-99) mg/dL Uric Acid 2.6 L (3.7-7.4) mg/dL Calcium 8.1 L (8.4-10.2) mg/dL AST 13 L (14-36) U/L Albumin 3.0 L (3.5-5.0) g/dL Assessment and Plan (1) Diarrhea Narrative/Plan: C-diff negative, possibly chemo effect. Will start antidiarrheals. Current Visit: Yes Status: Acute Priority: High Code(s): R19.7 - DIARRHEA, UNSPECIFIED SNOMED Code(s): 52687460 (2) Pancytopenia due to antineoplastic chemotherapy Narrative/Plan: White blood cell 0.3, no diff. as expected from chemotherapy. No acute intervention, no GCSF as no confirmed remission Hemoglobin is 7.4, no transfusion. Transfusion for hemoglobin less than 7, be very conservative with transfusions. Platelet count is 33,000 today, no acute intervention. Transfuse for platelet count of less than 10,000 or if symptomatic. Irradiated blood products Current Visit: Yes Status: Acute Priority: High Code(s): D61.810 - ANTINEOPLASTIC CHEMOTHERAPY INDUCED PANCYTOPENIA; T45.1X5A - ADVERSE EFFECT OF ANTINEOPLASTIC AND IMMUNOSUP DRUGS, INIT SNOMED Code(s): 151237994214575 (3) Acute myelomonocytic leukemia not having achieved remission Narrative/Plan: AML, induction chemo 7+3 regimen. Cont treatment, completing cycle today Supportive medications ordered, working well Current Visit: Yes Status: Acute Priority: High Code(s): C92.50 - ACUTE MYELOMONOCYTIC LEUKEMIA, NOT HAVING ACHIEVED REMISSION SNOMED Code(s): 883041030 (4) Polyarthralgia Narrative/Plan: ? if r/t AML. Improved with tylenol #3, pt is now able to ambulate with bilateral leg braces and walker, she is going a few steps without braces. Pt encouraged to continue PT exercises Current Visit: Yes Status: Acute Priority: High Code(s): M25.50 - PAIN IN UNSPECIFIED JOINT SNOMED Code(s): 15173467 (5) Lisa infection of genital region Narrative/Plan: Pt states improved symptoms Current Visit: Yes Status: Acute Priority: Medium Code(s): B37.49 - OTHER UROGENITAL CANDIDIASIS SNOMED Code(s): 988173698 Plan: Anticipate discharge in AM.
[2019-05-14] MEDS ORDERED: LOPERAMIDE 2 MG CAP PO STA (14:13)
[2019-05-14 17:06] LABS: Glucose,Whole Blood 128 mg/dL (75-99)
[2019-05-14 21:01] LABS: Glucose,Whole Blood 146 mg/dL (75-99)
[2019-05-15] MEDS: SODIUM CHLORIDE 0.9% 1,000 ML IV SCH ×4 (00:10→23:48)
[2019-05-15] MEDS: Acetaminophen-Codeine 300-30mg TAB PO PRN ×4 (00:11→19:00)
[2019-05-15] MEDS: ONDANSETRON 4 MG/2 ML VIAL IVP PRN (03:20)
[2019-05-15 07:03] LABS: Glucose,Whole Blood 146 mg/dL (75-99)
[2019-05-15] MEDS: metFORMIN 500 MG TAB PO SCH ×2 (09:19→20:45)
[2019-05-15] MEDS: CITALOPRAM HYDROBROMIDE 20 MG TAB PO SCH (09:19)
[2019-05-15] MEDS: ALLOPURINOL 300 MG TAB PO SCH (09:20)
[2019-05-15] MEDS: LOPERAMIDE 2 MG CAP PO PRN ×2 (09:20→20:45)
[2019-05-15] MEDS: INSULIN ASPART (NovoLOG) 100 UNIT/ML VIAL SQ SCH ×4 (09:20→20:45)
[2019-05-15] MEDS: SALT AND SODA MOUTHWASH 1,000 ML PO SCH ×4 (09:20→20:45)
[2019-05-15] MEDS: ACYCLOVIR 200 MG CAP PO SCH ×2 (09:20→20:44)
[2019-05-15] MEDS: NYSTATIN 100,000 UNIT/GM POWD 15 GM TOPICAL SCH ×2 (09:21→20:45)
[2019-05-15] MEDS: NYSTATIN 100,000 UNIT/ML SUSP 500,000 UNIT/5 ML CUP PO SCH ×4 (09:21→20:46)
[2019-05-15] MEDS: CHOLECALCIFEROL 400 UNIT TAB PO SCH (09:21)
[2019-05-15] MEDS: PRAVASTATIN SODIUM 20 MG TAB PO SCH (09:22)
[2019-05-15] MEDS: LISINOPRIL-HCTZ 10-12.5 MG 1 EACH TAB PO SCH (09:22)
[2019-05-15] MEDS: SENNOSIDES-DOCUSATE SODIUM 1 EACH TAB PO SCH ×2 (09:23→20:46)
[2019-05-15 09:45] LABS: MCH 28.6 pg (25.0-35.0); MCHC 30.8 g/dL (31.0-37.0); MCV 92.9 fL (80.0-100.0); Mean Platelet Volume 14.3; RBC 2.37 m/uL (3.80-5.40); RDW 15.4 % (11.5-15.5)
[2019-05-15 09:53] LABS: ALT 16 U/L (9-52); AST 10 U/L (14-36); African American GFR (CKD) >90 (>60 ml/min/1.73 sqM); Albumin 2.8 g/dL (3.5-5.0); Alkaline Phosphatase 51 U/L (38-126); Anion Gap 8 mmol/L; Blood Urea Nitrogen 9 mg/dL (7-17); Calcium 7.5 mg/dL (8.4-10.2); Carbon Dioxide 25 mmol/L (22-30); Chloride 99 mmol/L (98-107); Glucose 137 mg/dL (74-99); Potassium 3.4 mmol/L (3.5-5.1); Sodium 132 mmol/L (137-145); Uric Acid 1.9 mg/dL (3.7-7.4)
[2019-05-15] MEDS ORDERED: Potassium Replacement Protocol 1 EACH MISC MISCELLANE PRN (09:58)
--- NOTE | 2019-05-15 10:00 | P.PN ---
Subjective Progress Note Date: 05/15/19 This is a 64-year-old patient of Dr. miller. Patient presents for inpatient chemotherapy admitted to oncology services. Patient was recently admitted on 04/10/2019 for multiple joint swelling along with abnormal CBC with increased blastocyte. Patient underwent but bone marrow aspiration biopsy on 04/13/2019. Per oncology service is findings consistent with acute myeloid leukemia. Additional medical history includes diabetes mellitus, hyperlipidemia and hypertension. Patient had PICC line placed to receive chemotherapy. Patient planning first round of chemotherapy today patient will require hospitalization for 7 days. This time patient denies any chest pain or shortness breath. Patient denies nausea vomiting or diarrhea. Patient denies any urinary burning or frequency. She does reports she still having chronic pain due to multiple joint swelling. 2-D echo completed showing EF of 60-65%. On 05/08/2019 patient underwent prescribed chemotherapy yesterday. Patient reports that she is feeling well. Small amount of nausea. Patient reports improvement with her joint discomfort. Patient denies any chest pain or shortness of breath patient denies nausea vomiting or diarrhea. Patient denies any urinary burning or frequency. On 05/09/2019 patient is alert and oriented 3. Patient reports a small amount of nausea but states overall she is feeling well. Patient did receive 1 unit of PRBCs for hemoglobin 6. 9. Repeat hemoglobin 7.9. At this time patient denies chest pain or shortness breath. Patient denies nausea vomiting diarrhea. Patient denies any urinary burning or frequency. On 05/10/2019 patient's alert and oriented 3 patient is still having some nausea and feels overall well. Patient reports improvement with her joint discomfort hemoglobin 7.1. Patient denies any sores in mouth. Patient denies any rashes or open lesions. Patient denies nausea vomiting or diarrhea. UA was negative On 05/11/2019 patient's alert and oriented 3. Patient complains of some nausea but is controlled with medication and blas angel. Patient has been tolerating chemo. Plan for discharge on Tuesday. Patient denies any chest pain or shortness breath. Patient denies nausea vomiting or diarrhea. Patient denies any urinary burning or frequency. On 05/12/2019 patient was seen and examined on the oncology floor she is alert and oriented 3 in no apparent distress very pleasant complaining of nausea otherwise she denies any complaints there is no fever or chills no headache or dizziness no chest pain no shortness of breath no cough no nausea or vomiting no abdominal pain no diarrhea and no urinary symptoms On 05/13/2018 patient remains alert and oriented 3. Patient complaining some nausea and sleepiness but denies any other acute symptoms. Patient denies chest pain or shortness breath. Patient denies any urinary burning or frequency. Hemoglobin stable at 7.6 On 05/14/2019 patient's alert and oriented 3. Patient to receive a dose of chemotherapy today. Hemoglobin 7.4. Patient is having loose stools C. diff sample ordered per oncology. Patient complains of nausea. Patient denies any chest pain or shortness of breath. Patient denies any urinary burning or frequency On 05/15/2019 patient's alert and oriented 3. Planning possible discharge today per oncology services. Patient has received 7 rounds chemotherapy. Patient still complaining of intermittent nausea. C. diff was negative. Patient denies any chest pain or shortness of breath. Patient denies any urinary burning or frequency Objective - Vital Signs Vital signs: Vital Signs Temp 98.5 F 05/15/19 04:30 Pulse 101 H 05/15/19 04:30 Resp 18 05/15/19 04:30 BP 126/61 05/15/19 04:30 Pulse Ox 96 05/15/19 04:30 Intake & Output 05/14/19 05/15/19 05/15/19 18:59 06:59 18:59 Intake Total 1000 2220 Balance 1000 2220 Weight 97 kg Intake: Intake, IV Titration 1000 1500 Amount Sodium Chloride 0.9% 1, 1000 1500 000 ml @ 125 mls/hr IV . Q8H [facility] Rx#:[id number] Oral 720 Other: Voiding Method Bedside Commode Bedside Commode Bedside Commode # Voids 1 - Exam Head normocephalic Neck supple Lungs clear to auscultation bilaterally no wheezing or crackles Heart regular rate and rhythm S1-S2, no rub or gallop Abdomen is soft nontender nondistended positive bowel sounds no hepatosple nomegaly Extremities no edema. Bilateral leg boots in place Neuro alert and orientated to 3 - Labs CBC & Chem 7: 05/14/19 08:42 05/15/19 08:43 Labs: Abnormal Lab Results - Last 24 Hours (Table) 05/14/19 05/14/19 05/15/19 Range/Units 17:05 21:00 07:00 Sodium (137-145) mmol/L Potassium (3.5-5.1) mmol/L Glucose (74-99) mg/dL POC Glucose (mg/dL) 128 H 146 H 146 H (75-99) mg/dL Uric Acid (3.7-7.4) mg/dL Calcium (8.4-10.2) mg/dL AST (14-36) U/L Total Protein (6.3-8.2) g/dL Albumin (3.5-5.0) g/dL 05/15/19 Range/Units 08:43 Sodium 132 L (137-145) mmol/L Potassium 3.4 L (3.5-5.1) mmol/L Glucose 137 H (74-99) mg/dL POC Glucose (mg/dL) (75-99) mg/dL Uric Acid 1.9 L (3.7-7.4) mg/dL Calcium 7.5 L (8.4-10.2) mg/dL AST 10 L (14-36) U/L Total Protein 6.0 L (6.3-8.2) g/dL Albumin 2.8 L (3.5-5.0) g/dL Assessment and Plan Assessment: 1. Acute myelomonocytic leukemia. Patient remained for inpatient chemotherapy. Patient admitted to oncology services. She to receive a stress chemotherapy today per oncology 2. Multiple joint pain due to acute myeloid leukemia. Home meds resumed. Joint pain improving with chemotherapy 3. History of essential hypertension 4. Diabetes mellitus. Metformin reordered sliding scale insulin at that 5. History of hyperlipidemia 6. 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 Hemoglobin 6.7. Patient received 2 unit of PRBCs. hgb 7.4 7. Bicytopenia. Due to underlining AML. Oncology service is following 8. Loose stools. C. diff negative I performed an examination of the patient and discussed their management with the Nurse Practitioner. I have reviewed the Nurse Practitioner's notes and agree with the documented findings and plan of care
[2019-05-15 11:01] LABS: Glucose,Whole Blood 147 mg/dL (75-99)
[2019-05-15 11:07] LABS: WBC 0.2 k/uL (3.8-10.6)
[2019-05-15 11:08] LABS: HGB 6.8 gm/dL (11.4-16.0)
[2019-05-15 11:09] LABS: Platelet Count 12 k/uL (150-450)
[2019-05-15 11:14] LABS: Anisocytosis (M) Present; Poikilocytosis (M) Present
[2019-05-15] MEDS: POTASSIUM CHLORIDE ER 20 MEQ TAB.ER PO SCH ×2 (11:58→13:15)
[2019-05-15] MEDS: LEVOFLOXACIN 500 MG TAB PO SCH (12:28)
[2019-05-15] MEDS: FLUCONAZOLE 100 MG TAB PO SCH (12:28)
--- NOTE | 2019-05-15 15:29 | P.PN ---
Subjective Progress Note Date: 05/15/19 Principal diagnosis: AML, admitted for induction chemo with 7+3 regimen In follow-up today patient completed induction chemotherapy with 7+3 regimen yesterday afternoon. Today patient has had 2 episodes of diarrhea, complains of mild nausea, no vomiting, chest pain, difficulty breathing, mild abdominal discomfort, no cramping, dysuria, hematuria, mild pedal edema, her joint pains are improved, denies fevers, oral irritation, sore throat. Objective - Vital Signs Vital signs: Vital Signs Temp 99.1 F 05/15/19 15:13 Pulse 104 H 05/15/19 15:13 Resp 14 05/15/19 15:13 BP 124/60 05/15/19 15:13 Pulse Ox 95 05/15/19 11:31 Intake & Output 05/14/19 05/15/19 05/15/19 18:59 06:59 18:59 Intake Total 1000 2220 0 Balance 1000 2220 0 Weight 97 kg 97 kg Intake: Intake, IV Titration 1000 1500 Amount Sodium Chloride 0.9% 1, 1000 1500 000 ml @ 125 mls/hr IV . Q8H [facility] Rx#:[id number] Oral 720 Blood Product 0 Rc Pheres Irrad As 3 0 Unit [id number] Other: Voiding Method Bedside Commode Bedside Commode Bedside Commode # Voids 1 3 - Constitutional General appearance: Present: average body habitus, cooperative, no acute distress - EENT Eyes: Present: anicteric sclerae, EOMI ENT: Present: hearing grossly normal, normal oropharynx - Respiratory Respiratory: bilateral: CTA - Cardiovascular Rhythm: regular Heart sounds: normal: S1, S2 Abnormal Heart Sounds: Absent: systolic murmur, diastolic murmur, rub, S3 Gallop, S4 Gallop, click, other - Peripheral edema leg Peripheral Edema: bilateral: Trace - Gastrointestinal General gastrointestinal: Present: normal bowel sounds, soft, tenderness. Absent: absent bowel sounds, decreased bowel sounds, distended, hepatomegaly, hyperactive bowel sounds, organomegaly, rigid, scaphoid, splenomegaly, umbilical hernia, ventral hernia Localized gastrointestinal: tender: diffuse (Mild) - Neurologic Neurologic: Present: CNII-XII intact - Musculoskeletal Musculoskeletal: Present: generalized weakness, strength equal bilaterally - Psychiatric Psychiatric: Present: A&O x's 3, appropriate affect, intact judgment & insight - Labs CBC & Chem 7: 05/15/19 08:43 05/15/19 08:43 Labs: Abnormal Lab Results - Last 24 Hours (Table) 05/14/19 05/14/19 05/15/19 Range/Units 17:05 21:00 07:00 WBC (3.8-10.6) k/uL RBC (3.80-5.40) m/uL Hgb (11.4-16.0) gm/dL Hct (34.0-46.0) % MCHC (31.0-37.0) g/dL Plt Count (150-450) k/uL Sodium (137-145) mmol/L Potassium (3.5-5.1) mmol/L Glucose (74-99) mg/dL POC Glucose (mg/dL) 128 H 146 H 146 H (75-99) mg/dL Uric Acid (3.7-7.4) mg/dL Calcium (8.4-10.2) mg/dL AST (14-36) U/L Total Protein (6.3-8.2) g/dL Albumin (3.5-5.0) g/dL Crossmatch 05/15/19 05/15/19 05/15/19 Range/Units 08:43 08:43 10:59 WBC 0.2 L* (3.8-10.6) k/uL RBC 2.37 L (3.80-5.40) m/uL Hgb 6.8 L* (11.4-16.0) gm/dL Hct 22.0 L (34.0-46.0) % MCHC 30.8 L (31.0-37.0) g/dL Plt Count 12 L* D (150-450) k/uL Sodium 132 L (137-145) mmol/L Potassium 3.4 L (3.5-5.1) mmol/L Glucose 137 H (74-99) mg/dL POC Glucose (mg/dL) 147 H (75-99) mg/dL Uric Acid 1.9 L (3.7-7.4) mg/dL Calcium 7.5 L (8.4-10.2) mg/dL AST 10 L (14-36) U/L Total Protein 6.0 L (6.3-8.2) g/dL Albumin 2.8 L (3.5-5.0) g/dL Crossmatch 05/15/19 Range/Units 11:21 WBC (3.8-10.6) k/uL RBC (3.80-5.40) m/uL Hgb (11.4-16.0) gm/dL Hct (34.0-46.0) % MCHC (31.0-37.0) g/dL Plt Count (150-450) k/uL Sodium (137-145) mmol/L Potassium (3.5-5.1) mmol/L Glucose (74-99) mg/dL POC Glucose (mg/dL) (75-99) mg/dL Uric Acid (3.7-7.4) mg/dL Calcium (8.4-10.2) mg/dL AST (14-36) U/L Total Protein (6.3-8.2) g/dL Albumin (3.5-5.0) g/dL Crossmatch See Detail Assessment and Plan (1) Diarrhea Narrative/Plan: C-diff negative, possibly chemo effect. Antidiarrheals ordered. Due to low white blood cell count, diet will be changed over to clear liquids Current Visit: Yes Status: Acute Priority: High Code(s): R19.7 - DIARRHEA, UNSPECIFIED SNOMED Code(s): 62905336 (2) Pancytopenia due to antineoplastic chemotherapy Narrative/Plan: White blood cell 0.3, no diff. as expected from chemotherapy. No acute intervention, no GCSF as no confirmed remission. Prophylactic antiviral, antibacterial and antifungal therapies prescribed. Hemoglobin is 6.8, 1 unit PRBCs. Transfusion for hemoglobin less than 7, be very conservative with transfusions. Platelet count is 12,000 today, no acute intervention. Transfuse for platelet count of less than 10,000 or if symptomatic. Irradiated blood products Current Visit: Yes Status: Acute Priority: High Code(s): D61.810 - ANTINEOPLASTIC CHEMOTHERAPY INDUCED PANCYTOPENIA; T45.1X5A - ADVERSE EFFECT OF ANTINEOPLASTIC AND IMMUNOSUP DRUGS, INIT SNOMED Code(s): 013866819777488 (3) Acute myelomonocytic leukemia not having achieved remission Narrative/Plan: AML, induction chemo 7+3 regimen. Completed yesterday. Reviewed postchemotherapy care, i.e. mouth care, handwashing, Noti fluid intake, fever monitoring, prophylactic medications, follow-up monitoring in the office. Current Visit: Yes Status: Acute Priority: High Code(s): C92.50 - ACUTE MYELOMONOCYTIC LEUKEMIA, NOT HAVING ACHIEVED REMISSION SNOMED Code(s): 385655308 (4) Polyarthralgia Narrative/Plan: ? if r/t AML. Improving, encouraged to continue PT exercises Current Visit: Yes Status: Acute Priority: High Code(s): M25.50 - PAIN IN UNSPECIFIED JOINT SNOMED Code(s): 68390447 (5) Lisa infection of genital region Narrative/Plan: Stable symptoms Current Visit: Yes Status: Acute Priority: Medium Code(s): B37.49 - OTHER UROGENITAL CANDIDIASIS SNOMED Code(s): 198386197 (6) Neutropenic colitis Narrative/Plan: Plan at this time is for clear liquid diet, close monitoring of bowel movements. C. diff was checked and was negative, antidiarrheals initiated. Did have to change patient's anti-emetic to oral Compazine as there are multiple drug interactions with Zofran, antidepressant, antifungal and antibiotic in regards to QT prolongation. Patient will be monitored. Current Visit: Yes Status: Acute Priority: Medium Code(s): D70.9 - NEUTROPENIA, UNSPECIFIED; K52.89 - OTHER SPECIFIED NONINFECTIVE GASTROENTERITIS AND COLITIS SNOMED Code(s): 548461680 Plan: Due to patient requiring blood products, discharge is going to have to be de layed. CBC in the a.m.
[2019-05-15 17:28] LABS: Glucose,Whole Blood 152 mg/dL (75-99)
[2019-05-15 20:16] LABS: Glucose,Whole Blood 176 mg/dL (75-99)
[2019-05-15] MEDS: PROCHLORPERAZINE 10 MG TAB PO PRN (20:44)
[2019-05-15 22:21] LABS: HCT 26.1 % (34.0-46.0); MCH 30.3 pg (25.0-35.0); Mean Platelet Volume 13.8; RBC 2.83 m/uL (3.80-5.40); RDW 15.7 % (11.5-15.5)
[2019-05-15 22:32] LABS: WBC 0.3 k/uL (3.8-10.6)
[2019-05-15 22:33] LABS: HGB 8.6 gm/dL (11.4-16.0); Platelet Count 5 k/uL (150-450)
--- NOTE | 2019-05-15 23:15 | XR ---
EXAMINATION: XR chest 2V DATE AND TIME: 05/15/2019 6:43 PM CLINICAL INDICATION: PHH; cough TECHNIQUE: Departmental protocol COMPARISON: 04/10/2019 FINDINGS: Right upper extremity PICC line present, its tip superimposed over the distal SVC. The lungs are clear. The pleural spaces are negative. The cardiac silhouette is not enlarged. The remainder of the mediastinal silhouette is unremarkable. The skeletal structures and soft tissues are negative for acute findings. IMPRESSION: NO ACUTE PROCESS.
[2019-05-16] MEDS: Acetaminophen-Codeine 300-30mg TAB PO PRN ×4 (00:45→20:55)
[2019-05-16] MEDS ORDERED: Potassium Replacement Protocol 1 EACH MISC MISCELLANE PRN (01:25)
[2019-05-16] MEDS: POTASSIUM CHLORIDE 20 MEQ in WATER FOR INJECTION 1 100ML.BAG IVPB SCH ×2 (01:57→03:39)
[2019-05-16] MEDS: PROCHLORPERAZINE 10 MG TAB PO PRN ×2 (03:39→08:52)
[2019-05-16] MEDS: LOPERAMIDE 2 MG CAP PO PRN ×2 (04:22→08:44)
[2019-05-16 07:21] LABS: Glucose,Whole Blood 168 mg/dL (75-99)
[2019-05-16] MEDS: SENNOSIDES-DOCUSATE SODIUM 1 EACH TAB PO SCH (08:43)
[2019-05-16] MEDS: ACYCLOVIR 200 MG CAP PO SCH ×2 (08:43→20:55)
[2019-05-16] MEDS: ALLOPURINOL 300 MG TAB PO SCH (08:44)
[2019-05-16] MEDS: CITALOPRAM HYDROBROMIDE 20 MG TAB PO SCH (08:44)
[2019-05-16] MEDS: LISINOPRIL-HCTZ 10-12.5 MG 1 EACH TAB PO SCH (08:45)
[2019-05-16] MEDS: PRAVASTATIN SODIUM 20 MG TAB PO SCH (08:45)
[2019-05-16] MEDS: CHOLECALCIFEROL 400 UNIT TAB PO SCH (08:46)
[2019-05-16] MEDS: FLUCONAZOLE 100 MG TAB PO SCH (08:46)
[2019-05-16] MEDS: SALT AND SODA MOUTHWASH 1,000 ML PO SCH ×4 (08:47→23:06)
[2019-05-16] MEDS: NYSTATIN 100,000 UNIT/ML SUSP 500,000 UNIT/5 ML CUP PO SCH ×4 (08:47→23:06)
[2019-05-16] MEDS: SODIUM CHLORIDE 0.9% 1,000 ML IV SCH ×2 (08:47→17:07)
[2019-05-16] MEDS: NYSTATIN 100,000 UNIT/GM POWD 15 GM TOPICAL SCH ×2 (08:48→23:06)
[2019-05-16] MEDS: metFORMIN 500 MG TAB PO SCH ×2 (08:51→20:55)
[2019-05-16] MEDS: INSULIN ASPART (NovoLOG) 100 UNIT/ML VIAL SQ SCH ×4 (08:51→23:05)
[2019-05-16 09:56] LABS: HCT 23.2 % (34.0-46.0); HGB 7.7 gm/dL (11.4-16.0); MCH 30.3 pg (25.0-35.0); MCHC 33.2 g/dL (31.0-37.0); MCV 91.4 fL (80.0-100.0); Mean Platelet Volume 8.6; RBC 2.54 m/uL (3.80-5.40); RDW 15.6 % (11.5-15.5)
[2019-05-16 10:06] LABS: Platelet Count 14 k/uL (150-450); WBC 0.2 k/uL (3.8-10.6)
[2019-05-16 10:38] LABS: ALT 11 U/L (9-52); AST 9 U/L (14-36); African American GFR (CKD) >90 (>60 ml/min/1.73 sqM); Albumin 2.6 g/dL (3.5-5.0); Alkaline Phosphatase 50 U/L (38-126); Anion Gap 8 mmol/L; Blood Urea Nitrogen 11 mg/dL (7-17); Calcium 7.1 mg/dL (8.4-10.2); Carbon Dioxide 22 mmol/L (22-30); Chloride 102 mmol/L (98-107); Glucose 185 mg/dL (74-99); Magnesium 1.4 mg/dL (1.6-2.3); Potassium 3.5 mmol/L (3.5-5.1); Sodium 132 mmol/L (137-145); Total Bilirubin 1.3 mg/dL (0.2-1.3); Total Protein 5.6 g/dL (6.3-8.2)
--- NOTE | 2019-05-16 10:53 | P.PN ---
Subjective Progress Note Date: 05/16/19 Principal diagnosis: AML, admitted for induction chemo with 7+3 regimen Induction completed, sequela from chemotherapy, severe thrombocytopenia requiring transfusion In f/u today pt states she is doing ok, no fever, oral irritation, nausea, bloody nose, bleeding gums, chest pain, palpitations, SOB, abd pain, ramping, BM is thin and color remains maroon in color, no rectal pain, dysuria, hematuria, MS pain is controlled, she is very weak and tired. Objective - Vital Signs Vital signs: Vital Signs Temp 99.3 F 05/16/19 05:00 Pulse 107 H 05/16/19 05:00 Resp 18 05/16/19 05:00 BP 133/65 05/16/19 05:00 Pulse Ox 94 L 05/16/19 05:00 Intake & Output 05/15/19 05/16/19 05/16/19 18:59 06:59 18:59 Intake Total 310 2891 Balance 310 2891 Weight 97 kg 97.4 kg Intake: Intake, IV Titration 1700 Amount Potassium Chloride 20 meq 200 In Water For Injection 1 100ml.bag @ 50 mls/hr IVPB Q2H LAST Rx#: [id number] Sodium Chloride 0.9% 1, 1500 000 ml @ 125 mls/hr IV . Q8H LAST Rx#:[id number] Oral 960 Blood Product 310 231 Platelet Irr Pheresis 2 231 Acda Unit [id number] Rc Pheres Irrad As 3 310 Unit [id number] Other: Voiding Method Bedside Commode Bedside Commode # Voids 3 4 # Bowel Movements 4 - Constitutional General appearance: Present: cooperative, no acute distress, obese - EENT Eyes: Present: anicteric sclerae, EOMI, dentition normal ENT: Present: hearing grossly normal, normal oropharynx - Respiratory Respiratory: bilateral: CTA - Cardiovascular Rhythm: regular Heart sounds: normal: S1, S2 Abnormal Heart Sounds: Absent: systolic murmur, diastolic murmur, rub, S3 Gallop, S4 Gallop, click, other - Peripheral edema leg Peripheral Edema: bilateral: None - Gastrointestinal General gastrointestinal: Present: normal bowel sounds, soft. Absent: absent bowel sounds, decreased bowel sounds, distended, hepatomegaly, hyperactive bowel sounds, organomegaly, rigid, scaphoid, splenomegaly, tenderness, umbilical hernia, ventral hernia - Integumentary Integumentary: Present: pale - Neurologic Neurologic: Present: CNII-XII intact - Musculoskeletal Musculoskeletal: Present: generalized weakness - Psychiatric Psychiatric: Present: A&O x's 3, appropriate affect, intact judgment & insight - Labs CBC & Chem 7: 05/16/19 09:20 05/16/19 09:20 Labs: Abnormal Lab Results - Last 24 Hours (Table) 05/15/19 05/15/19 05/15/19 Range/Units 08:43 10:59 11:21 WBC 0.2 L* (3.8-10.6) k/uL RBC 2.37 L (3.80-5.40) m/uL Hgb 6.8 L* (11.4-16.0) gm/dL Hct 22.0 L (34.0-46.0) % MCHC 30.8 L (31.0-37.0) g/dL RDW (11.5-15.5) % Plt Count 12 L* D (150-450) k/uL Sodium (137-145) mmol/L Glucose (74-99) mg/dL POC Glucose (mg/dL) 147 H (75-99) mg/dL Calcium (8.4-10.2) mg/dL Magnesium (1.6-2.3) mg/dL AST (14-36) U/L Total Protein (6.3-8.2) g/dL Albumin (3.5-5.0) g/dL Stool Occult Blood (Negative) Crossmatch See Detail 05/15/19 05/15/19 05/15/19 Range/Units 17:15 17:50 20:14 WBC (3.8-10.6) k/uL RBC (3.80-5.40) m/uL Hgb (11.4-16.0) gm/dL Hct (34.0-46.0) % MCHC (31.0-37.0) g/dL RDW (11.5-15.5) % Plt Count (150-450) k/uL Sodium (137-145) mmol/L Glucose (74-99) mg/dL POC Glucose (mg/dL) 152 H 176 H (75-99) mg/dL Calcium (8.4-10.2) mg/dL Magnesium (1.6-2.3) mg/dL AST (14-36) U/L Total Protein (6.3-8.2) g/dL Albumin (3.5-5.0) g/dL Stool Occult Blood Positive H (Negative) Crossmatch 05/15/19 05/16/19 05/16/19 Range/Units 21:53 07:18 09:20 WBC 0.3 L* (3.8-10.6) k/uL RBC 2.83 L (3.80-5.40) m/uL Hgb 8.6 L D (11.4-16.0) gm/dL Hct 26.1 L (34.0-46.0) % MCHC (31.0-37.0) g/dL RDW 15.7 H (11.5-15.5) % Plt Count 5 L* D (150-450) k/uL Sodium 132 L (137-145) mmol/L Glucose 185 H (74-99) mg/dL POC Glucose (mg/dL) 168 H (75-99) mg/dL Calcium 7.1 L (8.4-10.2) mg/dL Magnesium 1.4 L (1.6-2.3) mg/dL AST 9 L (14-36) U/L Total Protein 5.6 L (6.3-8.2) g/dL Albumin 2.6 L (3.5-5.0) g/dL Stool Occult Blood (Negative) Crossmatch 05/16/19 Range/Units 09:20 WBC 0.2 L* (3.8-10.6) k/uL RBC 2.54 L (3.80-5.40) m/uL Hgb 7.7 L (11.4-16.0) gm/dL Hct 23.2 L (34.0-46.0) % MCHC (31.0-37.0) g/dL RDW 15.6 H (11.5-15.5) % Plt Count 14 L* D (150-450) k/uL Sodium (137-145) mmol/L Glucose (74-99) mg/dL POC Glucose (mg/dL) (75-99) mg/dL Calcium (8.4-10.2) mg/dL Magnesium (1.6-2.3) mg/dL AST (14-36) U/L Total Protein (6.3-8.2) g/dL Albumin (3.5-5.0) g/dL Stool Occult Blood (Negative) Crossmatch - Imaging and Cardiology Chest x-ray: report reviewed Assessment and Plan (1) Diarrhea Narrative/Plan: Chemo related. C diff neg. Occult positive, due to neutropenia and thrombocytopenia. Hgb stable today, platelets ordered. CBC daily. Antidiarrheals ordered. Current Visit: Yes Status: Acute Priority: High Code(s): R19.7 - DIARRHEA, UNSPECIFIED SNOMED Code(s): 46277879 (2) Pancytopenia due to antineoplastic chemotherapy Narrative/Plan: Anticipated. 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 Completed. Reinforced postchemotherapy care, i.e. mouth care, handwashing, Cerulean fluid intake, fever monitoring, prophylactic medications, follow-up monitoring in the office. Current Visit: Yes Status: Acute Priority: High Code(s): C92.50 - ACUTE MYELOMONOCYTIC LEUKEMIA, NOT HAVING ACHIEVED REMISSION SNOMED Code(s): 026082049 (4) Polyarthralgia Narrative/Plan: ? if r/t AML. Improving, encouraged to continue PT exercises Current Visit: Yes Status: Acute Priority: High Code(s): M25.50 - PAIN IN UNSPECIFIED JOINT SNOMED Code(s): 34068070 (5) Lisa infection of genital region Narrative/Plan: Stable symptoms Current Visit: Yes Status: Acute Priority: Medium Code(s): B37.49 - OTHER UROGENITAL CANDIDIASIS SNOMED Code(s): 338789464 (6) Neutropenic colitis Narrative/Plan: Cont clear liquid diet, close monitoring of bowel movements. C. diff was checked and was negative, antidiarrheals initiated. Current Visit: Yes Status: Acute Priority: Medium Code(s): D70.9 - NEUTROPENIA, UNSPECIFIED; K52.89 - OTHER SPECIFIED NONINFECTIVE GASTROENTERITIS AND COLITIS SNOMED Code(s): 268775149 Plan: Pt on telemetry. Bed alarm, must be assisted when getting out of bed, fall precautions NO asa, NSAIDs, anticoagulation, iburpofen
[2019-05-16] MEDS ORDERED: Magnesium Replacement Protocol 1 EACH MISC MISCELLANE PRN (10:54)
--- NOTE | 2019-05-16 11:02 | P.PN ---
Subjective Progress Note Date: 05/16/19 This is a 64-year-old patient of Dr. miller. Patient presents for inpatient chemotherapy admitted to oncology services. Patient was recently admitted on 04/10/2019 for multiple joint swelling along with abnormal CBC with increased blastocyte. Patient underwent but bone marrow aspiration biopsy on 04/13/2019. Per oncology service is findings consistent with acute myeloid leukemia. Additional medical history includes diabetes mellitus, hyperlipidemia and hypertension. Patient had PICC line placed to receive chemotherapy. Patient planning first round of chemotherapy today patient will require hospitalization for 7 days. This time patient denies any chest pain or shortness breath. Patient denies nausea vomiting or diarrhea. Patient denies any urinary burning or frequency. She does reports she still having chronic pain due to multiple joint swelling. 2-D echo completed showing EF of 60-65%. On 05/08/2019 patient underwent prescribed chemotherapy yesterday. Patient reports that she is feeling well. Small amount of nausea. Patient reports improvement with her joint discomfort. Patient denies any chest pain or shortness of breath patient denies nausea vomiting or diarrhea. Patient denies any urinary burning or frequency. On 05/09/2019 patient is alert and oriented 3. Patient reports a small amount of nausea but states overall she is feeling well. Patient did receive 1 unit of PRBCs for hemoglobin 6. 9. Repeat hemoglobin 7.9. At this time patient denies chest pain or shortness breath. Patient denies nausea vomiting diarrhea. Patient denies any urinary burning or frequency. On 05/10/2019 patient's alert and oriented 3 patient is still having some nausea and feels overall well. Patient reports improvement with her joint discomfort hemoglobin 7.1. Patient denies any sores in mouth. Patient denies any rashes or open lesions. Patient denies nausea vomiting or diarrhea. UA was negative On 05/11/2019 patient's alert and oriented 3. Patient complains of some nausea but is controlled with medication and blas angel. Patient has been tolerating chemo. Plan for discharge on Tuesday. Patient denies any chest pain or shortness breath. Patient denies nausea vomiting or diarrhea. Patient denies any urinary burning or frequency. On 05/12/2019 patient was seen and examined on the oncology floor she is alert and oriented 3 in no apparent distress very pleasant complaining of nausea otherwise she denies any complaints there is no fever or chills no headache or dizziness no chest pain no shortness of breath no cough no nausea or vomiting no abdominal pain no diarrhea and no urinary symptoms On 05/13/2018 patient remains alert and oriented 3. Patient complaining some nausea and sleepiness but denies any other acute symptoms. Patient denies chest pain or shortness breath. Patient denies any urinary burning or frequency. Hemoglobin stable at 7.6 On 05/14/2019 patient's alert and oriented 3. Patient to receive a dose of chemotherapy today. Hemoglobin 7.4. Patient is having loose stools C. diff sample ordered per oncology. Patient complains of nausea. Patient denies any chest pain or shortness of breath. Patient denies any urinary burning or frequency On 05/15/2019 patient's alert and oriented 3. Planning possible discharge today per oncology services. Patient has received 7 rounds chemotherapy. Patient still complaining of intermittent nausea. C. diff was negative. Patient denies any chest pain or shortness of breath. Patient denies any urinary burning or frequency On 05/16/2019 patient's alert and oriented 3. Yesterday afternoon and evening patient started to have low-grade temps along with elevated heart rate. Chest x-ray completed showing no acute pulmonary process. Patient started on Levaquin per oncology. Blood and urine cultures ordered. EKG ordered a she is on cardiac telemetry monitoring. Magnesium low at 1.4 replace per protocol. Patient did receive platelets yesterday platelets remain low at 14 will receive additional unit of platelets today per oncology. At this time patient denies any specific complaints. Patient denies any cough or shortness of breath. Patient denies any abdominal pain or emesis. Patient is nauseated. Patient denies urinary burning or frequency. Objective - Vital Signs Vital signs: Vital Signs Temp 99.3 F 05/16/19 05:00 Pulse 107 H 05/16/19 05:00 Resp 18 05/16/19 05:00 BP 133/65 05/16/19 05:00 Pulse Ox 94 L 05/16/19 05:00 Intake & Output 05/15/19 05/16/19 05/16/19 18:59 06:59 18:59 Intake Total 310 2891 Balance 310 2891 Weight 97 kg 97.4 kg Intake: Intake, IV Titration 1700 Amount Potassium Chloride 20 meq 200 In Water For Injection 1 100ml.bag @ 50 mls/hr IVPB Q2H [facility] Rx#: [id number] Sodium Chloride 0.9% 1, 1500 000 ml @ 125 mls/hr IV . Q8H [facility] Rx#:[id number] Oral 960 Blood Product 310 231 Platelet Irr Pheresis 2 231 Acda Unit [id number] Rc Pheres Irrad As 3 310 Unit [id number] Other: Voiding Method Bedside Commode Bedside Commode # Voids 3 4 # Bowel Movements 4 - Exam Head normocephalic Neck supple Lungs clear to auscultation bilaterally no wheezing or crackles Heart regular rate and rhythm S1-S2, no rub or gallop Abdomen is soft nontender nondistended positive bowel sounds no hepatosplenomegaly Extremities no edema. Bilateral leg boots in place Neuro alert and orientated to 3 - Labs CBC & Chem 7: 05/16/19 09:20 05/16/19 09:20 Labs: Abnormal Lab Results - Last 24 Hours (Table) 05/15/19 05/15/19 05/15/19 Range/Units 08:43 10:59 11:21 WBC 0.2 L* (3.8-10.6) k/uL RBC 2.37 L (3.80-5.40) m/uL Hgb 6.8 L* (11.4-16.0) gm/dL Hct 22.0 L (34.0-46.0) % MCHC 30.8 L (31.0-37.0) g/dL RDW (11.5-15.5) % Plt Count 12 L* D (150-450) k/uL Sodium (137-145) mmol/L Glucose (74-99) mg/dL POC Glucose (mg/dL) 147 H (75-99) mg/dL Calcium (8.4-10.2) mg/dL Magnesium (1.6-2.3) mg/dL AST (14-36) U/L Total Protein (6.3-8.2) g/dL Albumin (3.5-5.0) g/dL Stool Occult Blood (Negative) Crossmatch See Detail 05/15/19 05/15/19 05/15/19 Range/Units 17:15 17:50 20:14 WBC (3.8-10.6) k/uL RBC (3.80-5.40) m/uL Hgb (11.4-16.0) gm/dL Hct (34.0-46.0) % MCHC (31.0-37.0) g/dL RDW (11.5-15.5) % Plt Count (150-450) k/uL Sodium (137-145) mmol/L Glucose (74-99) mg/dL POC Glucose (mg/dL) 152 H 176 H (75-99) mg/dL Calcium (8.4-10.2) mg/dL Magnesium (1.6-2.3) mg/dL AST (14-36) U/L Total Protein (6.3-8.2) g/dL Albumin (3.5-5.0) g/dL Stool Occult Blood Positive H (Negative) Crossmatch 05/15/19 05/16/19 05/16/19 Range/Units 21:53 07:18 09:20 WBC 0.3 L* (3.8-10.6) k/uL RBC 2.83 L (3.80-5.40) m/uL Hgb 8.6 L D (11.4-16.0) gm/dL Hct 26.1 L (34.0-46.0) % MCHC (31.0-37.0) g/dL RDW 15.7 H (11.5-15.5) % Plt Count 5 L* D (150-450) k/uL Sodium 132 L (137-145) mmol/L Glucose 185 H (74-99) mg/dL POC Glucose (mg/dL) 168 H (75-99) mg/dL Calcium 7.1 L (8.4-10.2) mg/dL Magnesium 1.4 L (1.6-2.3) mg/dL AST 9 L (14-36) U/L Total Protein 5.6 L (6.3-8.2) g/dL Albumin 2.6 L (3.5-5.0) g/dL Stool Occult Blood (Negative) Crossmatch 05/16/19 Range/Units 09:20 WBC 0.2 L* (3.8-10.6) k/uL RBC 2.54 L (3.80-5.40) m/uL Hgb 7.7 L (11.4-16.0) gm/dL Hct 23.2 L (34.0-46.0) % MCHC (31.0-37.0) g/dL RDW 15.6 H (11.5-15.5) % Plt Count 14 L* D (150-450) k/uL Sodium (137-145) mmol/L Glucose (74-99) mg/dL POC Glucose (mg/dL) (75-99) mg/dL Calcium (8.4-10.2) mg/dL Magnesium (1.6-2.3) mg/dL AST (14-36) U/L Total Protein (6.3-8.2) g/dL Albumin (3.5-5.0) g/dL Stool Occult Blood (Negative) Crossmatch Assessment and Plan Assessment: 1. Acute myelomonocytic leukemia. Patient remained for inpatient chemotherapy. Patient admitted to oncology services. Induction chemo 7+3 regimen completed 2. Multiple joint pain due to acute myeloid leukemia. Home meds resumed. Joint pain improving with chemotherapy 3. History of essential hypertension 4. Diabetes mellitus. Metformin reordered sliding scale insulin orderd 5. History of hyperlipidemia 6. 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 Hemoglobin 6.7. Patient received 3 unit of PRBCs. hgb 7.4 7. Pancytopenia. Due to underlining chemotherapy. Oncology service is following. Per oncology no intervention for low WBC. Continue antibiotics antiviral antifungals. Platelets low at 5000 platelets ordered 8. Diarrhea. C. diff negative. Per oncology services likely chemo related 9. Low-grade temps. Chest x-ray showing no acute pulmonary process. Blood and urine cultures ordered. Patient started on Levaquin per oncology services 10. Tachycardia. Patient currently on cardiac telemetry monitoring. EKG has been ordered. Magnesium level 1.4 will replace 11. Positive stool for occult blood. Patient having low platelets due to chemo therapy patient to receive platelets today per oncology will continue monitor hemoglobin and transfuse for less than 7 or patient is symptomatic per oncology I performed an examination of the patient and discussed their management with the Nurse Practitioner. I have reviewed the Nurse Practitioner's notes and agree with the documented findings and plan of care
[2019-05-16 11:11] LABS: Glucose,Whole Blood 152 mg/dL (75-99)
[2019-05-16 12:35] LABS: Poikilocytosis (M) Present
[2019-05-16] MEDS: MAGNESIUM SULFATE-D5W PMX 1 GM in DEXTROSE/WATER 1 100ML.BAG IVPB SCH ×3 (13:28→17:07)
[2019-05-16] MEDS: LEVOFLOXACIN 500 MG TAB PO SCH (13:31)
[2019-05-16 17:05] LABS: Glucose,Whole Blood 168 mg/dL (75-99)
[2019-05-16 20:07] LABS: Glucose,Whole Blood 145 mg/dL (75-99)
[2019-05-17] MEDS: SODIUM CHLORIDE 0.9% 1,000 ML IV SCH ×4 (01:07→23:53)
[2019-05-17] MEDS: Acetaminophen-Codeine 300-30mg TAB PO PRN ×4 (02:45→20:53)
[2019-05-17 02:46] LABS: Appearance,Urine Cloudy (Clear); Bacteria,Urine Rare /hpf; Bilirubin,Urine Negative (Negative); Blood,Urine Small (Negative); Color,Urine Yellow; Glucose,Urine (UA) Negative (Negative); Granular Casts,Urine 12 /lpf (0); Hyaline Casts,Urine 2 /lpf (0-2); Ketones,Urine Negative (Negative); Leukocyte Esterase,Urine Negative (Negative); Mucus,Urine Few /hpf; Nitrite,Urine Negative (Negative); Protein,Urine 1+ (Negative); Squamous Epithelial Cell,Urine 1 /hpf (0-4); Urobilinogen,Urine <2.0 mg/dL (<2.0); WBC,Urine 4 /hpf (0-5)
[2019-05-17 07:05] LABS: Glucose,Whole Blood 151 mg/dL (75-99)
[2019-05-17 08:35] LABS: Anisocytosis Slight; MCH 31.6 pg (25.0-35.0); MCV 92.8 fL (80.0-100.0); Mean Platelet Volume 7.9; RBC 2.06 m/uL (3.80-5.40); RDW 16.3 % (11.5-15.5)
[2019-05-17 08:37] LABS: WBC 0.2 k/uL (3.8-10.6)
[2019-05-17 08:38] LABS: HCT 19.1 % (34.0-46.0); HGB 6.5 gm/dL (11.4-16.0); Platelet Count 15 k/uL (150-450)
[2019-05-17] MEDS: SALT AND SODA MOUTHWASH 1,000 ML PO SCH ×4 (08:57→20:55)
[2019-05-17] MEDS: CITALOPRAM HYDROBROMIDE 20 MG TAB PO SCH (09:00)
[2019-05-17] MEDS: metFORMIN 500 MG TAB PO SCH ×2 (09:01→20:53)
[2019-05-17] MEDS: ACYCLOVIR 200 MG CAP PO SCH ×2 (09:01→20:53)
[2019-05-17] MEDS: ALLOPURINOL 300 MG TAB PO SCH (09:01)
[2019-05-17] MEDS: INSULIN ASPART (NovoLOG) 100 UNIT/ML VIAL SQ SCH ×4 (09:02→20:55)
[2019-05-17] MEDS: LISINOPRIL-HCTZ 10-12.5 MG 1 EACH TAB PO SCH (09:03)
[2019-05-17] MEDS: CHOLECALCIFEROL 400 UNIT TAB PO SCH (09:03)
[2019-05-17] MEDS: PRAVASTATIN SODIUM 20 MG TAB PO SCH (09:03)
[2019-05-17] MEDS: NYSTATIN 100,000 UNIT/GM POWD 15 GM TOPICAL SCH ×2 (09:04→20:54)
[2019-05-17] MEDS: SENNOSIDES-DOCUSATE SODIUM 1 EACH TAB PO SCH ×2 (09:04→20:55)
[2019-05-17] MEDS: NYSTATIN 100,000 UNIT/ML SUSP 500,000 UNIT/5 ML CUP PO SCH ×4 (09:05→22:31)
[2019-05-17 09:07] LABS: ALT 13 U/L (9-52); AST 7 U/L (14-36); African American GFR (CKD) >90 (>60 ml/min/1.73 sqM); Albumin 2.4 g/dL (3.5-5.0); Alkaline Phosphatase 59 U/L (38-126); Anion Gap 8 mmol/L; Blood Urea Nitrogen 9 mg/dL (7-17); Calcium 7.1 mg/dL (8.4-10.2); Carbon Dioxide 25 mmol/L (22-30); Chloride 101 mmol/L (98-107); Glucose 133 mg/dL (74-99); Magnesium 2.2 mg/dL (1.6-2.3); Potassium 3.4 mmol/L (3.5-5.1); Sodium 134 mmol/L (137-145); Total Bilirubin 0.8 mg/dL (0.2-1.3); Total Protein 5.2 g/dL (6.3-8.2)
[2019-05-17] MEDS: FLUCONAZOLE 100 MG TAB PO SCH (09:07)
[2019-05-17] MEDS ORDERED: Potassium Replacement Protocol 1 EACH MISC MISCELLANE PRN (09:14)
--- NOTE | 2019-05-17 10:15 | P.PN ---
Subjective Progress Note Date: 05/17/19 This is a 64-year-old patient of Dr. miller. Patient presents for inpatient chemotherapy admitted to oncology services. Patient was recently admitted on 04/10/2019 for multiple joint swelling along with abnormal CBC with increased blastocyte. Patient underwent but bone marrow aspiration biopsy on 04/13/2019. Per oncology service is findings consistent with acute myeloid leukemia. Additional medical history includes diabetes mellitus, hyperlipidemia and hypertension. Patient had PICC line placed to receive chemotherapy. Patient planning first round of chemotherapy today patient will require hospitalization for 7 days. This time patient denies any chest pain or shortness breath. Patient denies nausea vomiting or diarrhea. Patient denies any urinary burning or frequency. She does reports she still having chronic pain due to multiple joint swelling. 2-D echo completed showing EF of 60-65%. On 05/08/2019 patient underwent prescribed chemotherapy yesterday. Patient reports that she is feeling well. Small amount of nausea. Patient reports improvement with her joint discomfort. Patient denies any chest pain or shortness of breath patient denies nausea vomiting or diarrhea. Patient denies any urinary burning or frequency. On 05/09/2019 patient is alert and oriented 3. Patient reports a small amount of nausea but states overall she is feeling well. Patient did receive 1 unit of PRBCs for hemoglobin 6. 9. Repeat hemoglobin 7.9. At this time patient denies chest pain or shortness breath. Patient denies nausea vomiting diarrhea. Patient denies any urinary burning or frequency. On 05/10/2019 patient's alert and oriented 3 patient is still having some nausea and feels overall well. Patient reports improvement with her joint discomfort hemoglobin 7.1. Patient denies any sores in mouth. Patient denies any rashes or open lesions. Patient denies nausea vomiting or diarrhea. UA was negative On 05/11/2019 patient's alert and oriented 3. Patient complains of some nausea but is controlled with medication and blas angel. Patient has been tolerating chemo. Plan for discharge on Tuesday. Patient denies any chest pain or shortness breath. Patient denies nausea vomiting or diarrhea. Patient denies any urinary burning or frequency. On 05/12/2019 patient was seen and examined on the oncology floor she is alert and oriented 3 in no apparent distress very pleasant complaining of nausea otherwise she denies any complaints there is no fever or chills no headache or dizziness no chest pain no shortness of breath no cough no nausea or vomiting no abdominal pain no diarrhea and no urinary symptoms On 05/13/2018 patient remains alert and oriented 3. Patient complaining some nausea and sleepiness but denies any other acute symptoms. Patient denies chest pain or shortness breath. Patient denies any urinary burning or frequency. Hemoglobin stable at 7.6 On 05/14/2019 patient's alert and oriented 3. Patient to receive a dose of chemotherapy today. Hemoglobin 7.4. Patient is having loose stools C. diff sample ordered per oncology. Patient complains of nausea. Patient denies any chest pain or shortness of breath. Patient denies any urinary burning or frequency On 05/15/2019 patient's alert and oriented 3. Planning possible discharge today per oncology services. Patient has received 7 rounds chemotherapy. Patient still complaining of intermittent nausea. C. diff was negative. Patient denies any chest pain or shortness of breath. Patient denies any urinary burning or frequency On 05/16/2019 patient's alert and oriented 3. Yesterday afternoon and evening patient started to have low-grade temps along with elevated heart rate. Chest x-ray completed showing no acute pulmonary process. Patient started on Levaquin per oncology. Blood and urine cultures ordered. EKG ordered a she is on cardiac telemetry monitoring. Magnesium low at 1.4 replace per protocol. Patient did receive platelets yesterday platelets remain low at 14 will receive additional unit of platelets today per oncology. At this time patient denies any specific complaints. Patient denies any cough or shortness of breath. Patient denies any abdominal pain or emesis. Patient is nauseated. Patient denies urinary burning or frequency. On 05/17/2019 patient's alert and oriented 3. Patient reports that she feels improved from yesterday. Patient to get another unit of blood and platelets today per oncology. Heart rate has improved. Patient denies any chest pain or shortness of breath. Patient denies nausea vomiting or diarrhea. Patient denies any urinary burning or frequency. Objective - Vital Signs Vital signs: Vital Signs Temp 98.0 F 05/17/19 04:30 Pulse 98 05/17/19 04:30 Resp 16 05/17/19 04:30 BP 109/56 05/17/19 04:30 Pulse Ox 95 05/17/19 04:30 Intake & Output 05/16/19 05/17/19 05/17/19 18:59 06:59 18:59 Intake Total 1000 2941 Balance 1000 2941 Weight 101.5 kg Intake: Intake, IV Titration 1000 900 Amount Magnesium Sulfate-D5w Pmx 100 1 gm In Dextrose/Water 1 100ml.bag @ 100 mls/hr IVPB Q1H LAST Rx#: [id number] Sodium Chloride 0.9% 1, 900 900 000 ml @ 125 mls/hr IV . Q8H LAST Rx#:[id number] Oral 1780 Blood Product 261 Platelet Irr Pheresis 2 261 Acda Unit [id number] Other: Voiding Method Bedside Commode Bedside Commode # Voids 3 2 # Bowel Movements 3 1 - Exam Head normocephalic Neck supple Lungs clear to auscultation bilaterally no wheezing or crackles Heart regular rate and rhythm S1-S2, no rub or gallop Abdomen is soft nontender nondistended positive bowel sounds no hepatosplenomegaly Extremities no edema. Bilateral leg boots in place Neuro alert and orientated to 3 - Labs CBC & Chem 7: 05/17/19 08:04 05/17/19 08:04 Labs: Abnormal Lab Results - Last 24 Hours (Table) 05/15/19 05/16/19 05/16/19 Range/Units 11:21 09:20 11:09 WBC (3.8-10.6) k/uL RBC (3.80-5.40) m/uL Hgb (11.4-16.0) gm/dL Hct (34.0-46.0) % RDW (11.5-15.5) % Plt Count (150-450) k/uL Sodium 132 L (137-145) mmol/L Potassium (3.5-5.1) mmol/L Creatinine (0.52-1.04) mg/dL Glucose 185 H (74-99) mg/dL POC Glucose (mg/dL) 152 H (75-99) mg/dL Calcium 7.1 L (8.4-10.2) mg/dL Magnesium 1.4 L (1.6-2.3) mg/dL AST 9 L (14-36) U/L Total Protein 5.6 L (6.3-8.2) g/dL Albumin 2.6 L (3.5-5.0) g/dL Urine Appearance (Clear) Urine Protein (Negative) Urine Blood (Negative) Urine Bacteria (None) /hpf Urine Mucus (None) /hpf Crossmatch See Detail 05/16/19 05/16/19 05/17/19 Range/Units 17:03 20:05 02:05 WBC (3.8-10.6) k/uL RBC (3.80-5.40) m/uL Hgb (11.4-16.0) gm/dL Hct (34.0-46.0) % RDW (11.5-15.5) % Plt Count (150-450) k/uL Sodium (137-145) mmol/L Potassium (3.5-5.1) mmol/L Creatinine (0.52-1.04) mg/dL Glucose (74-99) mg/dL POC Glucose (mg/dL) 168 H 145 H (75-99) mg/dL Calcium (8.4-10.2) mg/dL Magnesium (1.6-2.3) mg/dL AST (14-36) U/L Total Protein (6.3-8.2) g/dL Albumin (3.5-5.0) g/dL Urine Appearance Cloudy H (Clear) Urine Protein 1+ H (Negative) Urine Blood Small H (Negative) Urine Bacteria Rare H (None) /hpf Urine Mucus Few H (None) /hpf Crossmatch 05/17/19 05/17/19 05/17/19 Range/Units 07:04 08:04 08:04 WBC 0.2 L* (3.8-10.6) k/uL RBC 2.06 L (3.80-5.40) m/uL Hgb 6.5 L* (11.4-16.0) gm/dL Hct 19.1 L* (34.0-46.0) % RDW 16.3 H (11.5-15.5) % Plt Count 15 L* (150-450) k/uL Sodium 134 L (137-145) mmol/L Potassium 3.4 L (3.5-5.1) mmol/L Creatinine 0.47 L (0.52-1.04) mg/dL Glucose 133 H (74-99) mg/dL POC Glucose (mg/dL) 151 H (75-99) mg/dL Calcium 7.1 L (8.4-10.2) mg/dL Magnesium (1.6-2.3) mg/dL AST 7 L (14-36) U/L Total Protein 5.2 L (6.3-8.2) g/dL Albumin 2.4 L (3.5-5.0) g/dL Urine Appearance (Clear) Urine Protein (Negative) Urine Blood (Negative) Urine Bacteria (None) /hpf Urine Mucus (None) /hpf Crossmatch Microbiology - Last 24 Hours (Table) 05/15/19 21:53 Blood Culture - Preliminary Blood No Growth after 24 hours 05/15/19 19:48 Blood Culture - Preliminary Blood No Growth after 24 hours Assessment and Plan Assessment: 1. Acute myelomonocytic leukemia. Patient remained for inpatient chemotherapy. Patient admitted to oncology services. Induction chemo 7+3 regimen completed 2. Multiple joint pain due to acute myeloid leukemia. Home meds resumed. Joint pain improving with chemotherapy 3. History of essential hypertension 4. Diabetes mellitus. Metformin reordered sliding scale insulin ordered 5. History of hyperlipidemia 6. 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 Hemoglobin 6.7. Patient received 3 unit of PRBCs. hgb 6.5. Patient received additional dose of 1 unit PRBCs 7. Pancytopenia. Due to underlining chemotherapy. Oncology service is following. Per oncology no intervention for low WBC. Continue antibiotics antiviral antifungals. Platelets low at 5000 platelets ordered 8. Diarrhea. C. diff negative. Per oncology services likely chemo related 9. Low-grade temps. Chest x-ray showing no acute pulmonary process. Blood and urine cultures ordered. Patient started on Levaquin per oncology services 10. Tachycardia. Patient currently on cardiac telemetry monitoring. EKG has been ordered. Magnesium level 1.4 will replace. Resolved 11. Positive stool for occult blood. Patient having low platelets due to chemotherapy patient to receive platelets today per oncology will continue monitor hemoglobin and transfuse for less than 7 or patient is symptomatic per oncology I performed an examination of the patient and discussed their management with the Nurse Practitioner. I have reviewed the Nurse Practitioner's notes and agree with the documented findings and plan of care
[2019-05-17] MEDS ORDERED: DESMOPRESSIN ACETATE 30 MCG in SODIUM CHLORIDE 0.9% 50 ML IVPB ONE (10:30)
[2019-05-17] MEDS ORDERED: DESMOPRESSIN ACETATE 4 MCG/ML VIAL (MDV) SQ ONE (10:30)
--- NOTE | 2019-05-17 10:41 | P.PN ---
Subjective Progress Note Date: 05/17/19 Principal diagnosis: AML, admitted for induction chemo with 7+3 regimen Induction completed, sequela from chemotherapy, severe thrombocytopenia requiring transfusion In f/u today pt states she is doing ok, no fever, oral irritation, nausea, bloody nose, bleeding gums, she has no appetite, denies palpitations, SOB, abd pain, bloating or cramping, No BM this AM. No rectal pain, dysuria, hematuria, she is very weak and tired but really wants to go home. Objective - Vital Signs Vital signs: Vital Signs Temp 98.0 F 05/17/19 04:30 Pulse 98 05/17/19 04:30 Resp 16 05/17/19 04:30 BP 109/56 05/17/19 04:30 Pulse Ox 95 05/17/19 04:30 Intake & Output 05/16/19 05/17/19 05/17/19 18:59 06:59 18:59 Intake Total 1000 2941 Balance 1000 2941 Weight 101.5 kg Intake: Intake, IV Titration 1000 900 Amount Magnesium Sulfate-D5w Pmx 100 1 gm In Dextrose/Water 1 100ml.bag @ 100 mls/hr IVPB Q1H LAST Rx#: [id number] Sodium Chloride 0.9% 1, 900 900 000 ml @ 125 mls/hr IV . Q8H LAST Rx#:[id number] Oral 1780 Blood Product 261 Platelet Irr Pheresis 2 261 Acda Unit [id number] Other: Voiding Method Bedside Commode Bedside Commode # Voids 3 2 # Bowel Movements 3 1 - Constitutional General appearance: Present: cooperative, no acute distress, obese - EENT EENT Comment(s): buccal thrush bilaterally, no ulcerations Eyes: Present: anicteric sclerae, EOMI ENT: Present: hearing grossly normal - Respiratory Respiratory: bilateral: CTA - Cardiovascular Rhythm: regular Heart sounds: normal: S1, S2 Abnormal Heart Sounds: Absent: systolic murmur, diastolic murmur, rub, S3 Gallop, S4 Gallop, click, other - Peripheral edema leg Peripheral Edema: bilateral: None - Gastrointestinal General gastrointestinal: Present: normal bowel sounds, soft, tenderness. Absent: absent bowel sounds, decreased bowel sounds, distended, hepatomegaly, hyperactive bowel sounds, organomegaly, rigid, scaphoid, splenomegaly, umbilical hernia, ventral hernia Localized gastrointestinal: tender: diffuse (very mild, no rebound) - Neurologic Neurologic: Present: CNII-XII intact - Musculoskeletal Musculoskeletal: Present: strength equal bilaterally - Psychiatric Psychiatric: Present: A&O x's 3, appropriate affect, intact judgment & insight - Labs CBC & Chem 7: 05/17/19 08:04 05/17/19 08:04 Labs: Abnormal Lab Results - Last 24 Hours (Table) 05/15/19 05/16/19 05/16/19 Range/Units 11:21 09:20 11:09 WBC (3.8-10.6) k/uL RBC (3.80-5.40) m/uL Hgb (11.4-16.0) gm/dL Hct (34.0-46.0) % RDW (11.5-15.5) % Plt Count (150-450) k/uL Sodium 132 L (137-145) mmol/L Potassium (3.5-5.1) mmol/L Creatinine (0.52-1.04) mg/dL Glucose 185 H (74-99) mg/dL POC Glucose (mg/dL) 152 H (75-99) mg/dL Calcium 7.1 L (8.4-10.2) mg/dL Magnesium 1.4 L (1.6-2.3) mg/dL AST 9 L (14-36) U/L Total Protein 5.6 L (6.3-8.2) g/dL Albumin 2.6 L (3.5-5.0) g/dL Urine Appearance (Clear) Urine Protein (Negative) Urine Blood (Negative) Urine Bacteria (None) /hpf Urine Mucus (None) /hpf Crossmatch See Detail 05/16/19 05/16/19 05/17/19 Range/Units 17:03 20:05 02:05 WBC (3.8-10.6) k/uL RBC (3.80-5.40) m/uL Hgb (11.4-16.0) gm/dL Hct (34.0-46.0) % RDW (11.5-15.5) % Plt Count (150-450) k/uL Sodium (137-145) mmol/L Potassium (3.5-5.1) mmol/L Creatinine (0.52-1.04) mg/dL Glucose (74-99) mg/dL POC Glucose (mg/dL) 168 H 145 H (75-99) mg/dL Calcium (8.4-10.2) mg/dL Magnesium (1.6-2.3) mg/dL AST (14-36) U/L Total Protein (6.3-8.2) g/dL Albumin (3.5-5.0) g/dL Urine Appearance Cloudy H (Clear) Urine Protein 1+ H (Negative) Urine Blood Small H (Negative) Urine Bacteria Rare H (None) /hpf Urine Mucus Few H (None) /hpf Crossmatch 05/17/19 05/17/19 05/17/19 Range/Units 07:04 08:04 08:04 WBC 0.2 L* (3.8-10.6) k/uL RBC 2.06 L (3.80-5.40) m/uL Hgb 6.5 L* (11.4-16.0) gm/dL Hct 19.1 L* (34.0-46.0) % RDW 16.3 H (11.5-15.5) % Plt Count 15 L* (150-450) k/uL Sodium 134 L (137-145) mmol/L Potassium 3.4 L (3.5-5.1) mmol/L Creatinine 0.47 L (0.52-1.04) mg/dL Glucose 133 H (74-99) mg/dL POC Glucose (mg/dL) 151 H (75-99) mg/dL Calcium 7.1 L (8.4-10.2) mg/dL Magnesium (1.6-2.3) mg/dL AST 7 L (14-36) U/L Total Protein 5.2 L (6.3-8.2) g/dL Albumin 2.4 L (3.5-5.0) g/dL Urine Appearance (Clear) Urine Protein (Negative) Urine Blood (Negative) Urine Bacteria (None) /hpf Urine Mucus (None) /hpf Crossmatch Microbiology - Last 24 Hours (Table) 05/15/19 21:53 Blood Culture - Preliminary Blood No Growth after 24 hours 05/15/19 19:48 Blood Culture - Preliminary Blood No Growth after 24 hours Assessment and Plan (1) Diarrhea Narrative/Plan: Chemo related. C diff neg. Occult positive, hematochezia noted. Hgb stable today, when taken into account last transfusion as well as chemo effects. 1 unit today. Platelets ordered for today until stool is at least grossly negative for blood. 1 dose of DDAVP ordered. Cont CBC daily. Antidiarrheals ordered. Current Visit: Yes Status: Acute Priority: High Code(s): R19.7 - DIARRHEA, UNSPECIFIED SNOMED Code(s): 91925530 (2) Pancytopenia due to antineoplastic chemotherapy Narrative/Plan: Anticipated. No intervention for low WBC-abx, antiviral and antifungal ordered, VS monitoring Platelets 15229 today, irradiated Platelets ordered due to hematochezia. Daily CBC Transfuse for Hgb 6.5 today Irradiated blood products Current Visit: Yes Status: Acute Priority: High Code(s): D61.810 - ANTINEOPLASTIC CHEMOTHERAPY INDUCED PANCYTOPENIA; T45.1X5A - ADVERSE EFFECT OF ANTINEOPLASTIC AND IMMUNOSUP DRUGS, INIT SNOMED Code(s): 555409819075526 (3) Acute myelomonocytic leukemia not having achieved remission Narrative/Plan: AML, induction chemo 7+3 regimen. Completed. Daily reinforcement postchemotherapy care, i.e. mouth care, handwashing, [place] fluid intake, fever monitoring, prophylactic medications, follow-up monitoring in the office. Current Visit: Yes Status: Acute Priority: High Code(s): C92.50 - ACUTE MYELOMONOCYTIC LEUKEMIA, NOT HAVING ACHIEVED REMISSION SNOMED Code(s): 389929332 (4) Polyarthralgia Narrative/Plan: ? if r/t AML. Improving, encouraged to continue PT exercises Current Visit: Yes Status: Acute Priority: High Code(s): M25.50 - PAIN IN UNSPECIFIED JOINT SNOMED Code(s): 71345606 (5) Lisa infection of genital region Narrative/Plan: Stable symptoms, cont topical. Pt is on oral antifungal as well Current Visit: Yes Status: Acute Priority: Medium Code(s): B37.49 - OTHER UROGENITAL CANDIDIASIS SNOMED Code(s): 083470722 (6) Neutropenic colitis Narrative/Plan: Cont clear liquid diet, close monitoring of bowel movements. C. diff was checked and was negative, antidiarrheals initiated. Current Visit: Yes Status: Acute Priority: Medium Code(s): D70.9 - NEUTROPENIA, UNSPECIFIED; K52.89 - OTHER SPECIFIED NONINFECTIVE GASTROENTERITIS AND COLITIS SNOMED Code(s): 375465107 (7) Lisa infection of mouth Narrative/Plan: Pt has stopped doing the nystatin oral rinse, asked her to resume. Cont salt and soda. Increase performance of oral hygiene Current Visit: Yes Status: Acute Priority: High Code(s): B37.0 - CANDIDAL STOMATITIS SNOMED Code(s): 36957924 (8) Anorexia Narrative/Plan: Side effect of chemo. Will initiate low dose marinol. Current Visit: Yes Status: Acute Priority: High Code(s): R63.0 - ANOREXIA SNOMED Code(s): 34075643 Plan: Doctor attests: I performed a history and physical examination of this patient, developed impression and plan of care, discussed with dictator. I agree with dictators note, documented as a scribe.
[2019-05-17 10:53] LABS: Poikilocytosis (M) Present
[2019-05-17] MEDS: DRONABINOL 2.5 MG CAP PO SCH ×2 (11:11→17:56)
[2019-05-17] MEDS: POTASSIUM CHLORIDE ER 20 MEQ TAB.ER PO SCH ×3 (11:11→14:52)
[2019-05-17 11:17] LABS: Glucose,Whole Blood 139 mg/dL (75-99)
[2019-05-17] MEDS: LEVOFLOXACIN 500 MG TAB PO SCH (13:00)
[2019-05-17 17:26] LABS: Glucose,Whole Blood 169 mg/dL (75-99)
[2019-05-17] MEDS: LOPERAMIDE 2 MG CAP PO PRN (17:55)
[2019-05-17] MEDS: PROCHLORPERAZINE 10 MG TAB PO PRN (19:36)
[2019-05-17 19:58] LABS: Glucose,Whole Blood 145 mg/dL (75-99)
[2019-05-18] MEDS: Acetaminophen-Codeine 300-30mg TAB PO PRN ×3 (04:51→21:54)
[2019-05-18] MEDS: SODIUM CHLORIDE 0.9% 1,000 ML IV SCH ×2 (04:51→17:16)
[2019-05-18 07:23] LABS: Glucose,Whole Blood 156 mg/dL (75-99)
[2019-05-18 07:50] LABS: HCT 20.4 % (34.0-46.0); HGB 7.1 gm/dL (11.4-16.0); MCHC 34.8 g/dL (31.0-37.0); MCV 91.8 fL (80.0-100.0); Mean Platelet Volume 7.4; RBC 2.22 m/uL (3.80-5.40); RDW 14.9 % (11.5-15.5)
[2019-05-18 07:54] LABS: WBC 0.2 k/uL (3.8-10.6)
[2019-05-18 07:55] LABS: Platelet Count 18 k/uL (150-450)
[2019-05-18] MEDS: INSULIN ASPART (NovoLOG) 100 UNIT/ML VIAL SQ SCH ×4 (08:03→21:46)
[2019-05-18] MEDS: NYSTATIN 100,000 UNIT/ML SUSP 500,000 UNIT/5 ML CUP PO SCH ×4 (08:03→21:54)
[2019-05-18] MEDS: FLUCONAZOLE 100 MG TAB PO SCH (08:03)
[2019-05-18] MEDS: SENNOSIDES-DOCUSATE SODIUM 1 EACH TAB PO SCH ×2 (08:03→21:54)
[2019-05-18] MEDS: CITALOPRAM HYDROBROMIDE 20 MG TAB PO SCH (08:03)
[2019-05-18] MEDS: ALLOPURINOL 300 MG TAB PO SCH (08:03)
[2019-05-18] MEDS: DRONABINOL 2.5 MG CAP PO SCH ×2 (08:03→17:15)
[2019-05-18] MEDS: metFORMIN 500 MG TAB PO SCH ×2 (08:03→21:53)
[2019-05-18] MEDS: PRAVASTATIN SODIUM 20 MG TAB PO SCH (08:04)
[2019-05-18] MEDS: ACYCLOVIR 200 MG CAP PO SCH ×2 (08:05→21:53)
[2019-05-18] MEDS: LISINOPRIL-HCTZ 10-12.5 MG 1 EACH TAB PO SCH (08:05)
[2019-05-18] MEDS: NYSTATIN 100,000 UNIT/GM POWD 15 GM TOPICAL SCH ×2 (08:05→21:57)
[2019-05-18] MEDS: SALT AND SODA MOUTHWASH 1,000 ML PO SCH ×4 (08:05→21:57)
[2019-05-18] MEDS: CHOLECALCIFEROL 400 UNIT TAB PO SCH (08:05)
[2019-05-18 08:17] LABS: ALT 17 U/L (9-52); AST 6 U/L (14-36); African American GFR (CKD) >90 (>60 ml/min/1.73 sqM); Albumin 2.3 g/dL (3.5-5.0); Alkaline Phosphatase 65 U/L (38-126); Anion Gap 7 mmol/L; Blood Urea Nitrogen 10 mg/dL (7-17); Calcium 7.3 mg/dL (8.4-10.2); Carbon Dioxide 26 mmol/L (22-30); Chloride 103 mmol/L (98-107); Glucose 150 mg/dL (74-99); Potassium 3.5 mmol/L (3.5-5.1); Sodium 136 mmol/L (137-145); Total Bilirubin 1.3 mg/dL (0.2-1.3); Total Protein 5.2 g/dL (6.3-8.2)
--- NOTE | 2019-05-18 09:51 | P.PN ---
Subjective Progress Note Date: 05/18/19 This is a 64-year-old patient of Dr. miller. Patient presents for inpatient chemotherapy admitted to oncology services. Patient was recently admitted on 04/10/2019 for multiple joint swelling along with abnormal CBC with increased blastocyte. Patient underwent but bone marrow aspiration biopsy on 04/13/2019. Per oncology service is findings consistent with acute myeloid leukemia. Additional medical history includes diabetes mellitus, hyperlipidemia and hypertension. Patient had PICC line placed to receive chemotherapy. Patient planning first round of chemotherapy today patient will require hospitalization for 7 days. This time patient denies any chest pain or shortness breath. Patient denies nausea vomiting or diarrhea. Patient denies any urinary burning or frequency. She does reports she still having chronic pain due to multiple joint swelling. 2-D echo completed showing EF of 60-65%. On 05/08/2019 patient underwent prescribed chemotherapy yesterday. Patient reports that she is feeling well. Small amount of nausea. Patient reports improvement with her joint discomfort. Patient denies any chest pain or shortness of breath patient denies nausea vomiting or diarrhea. Patient denies any urinary burning or frequency. On 05/09/2019 patient is alert and oriented 3. Patient reports a small amount of nausea but states overall she is feeling well. Patient did receive 1 unit of PRBCs for hemoglobin 6. 9. Repeat hemoglobin 7.9. At this time patient denies chest pain or shortness breath. Patient denies nausea vomiting diarrhea. Patient denies any urinary burning or frequency. On 05/10/2019 patient's alert and oriented 3 patient is still having some nausea and feels overall well. Patient reports improvement with her joint discomfort hemoglobin 7.1. Patient denies any sores in mouth. Patient denies any rashes or open lesions. Patient denies nausea vomiting or diarrhea. UA was negative On 05/11/2019 patient's alert and oriented 3. Patient complains of some nausea but is controlled with medication and blas angel. Patient has been tolerating chemo. Plan for discharge on Tuesday. Patient denies any chest pain or shortness breath. Patient denies nausea vomiting or diarrhea. Patient denies any urinary burning or frequency. On 05/12/2019 patient was seen and examined on the oncology floor she is alert and oriented 3 in no apparent distress very pleasant complaining of nausea otherwise she denies any complaints there is no fever or chills no headache or dizziness no chest pain no shortness of breath no cough no nausea or vomiting no abdominal pain no diarrhea and no urinary symptoms On 05/13/2018 patient remains alert and oriented 3. Patient complaining some nausea and sleepiness but denies any other acute symptoms. Patient denies chest pain or shortness breath. Patient denies any urinary burning or frequency. Hemoglobin stable at 7.6 On 05/14/2019 patient's alert and oriented 3. Patient to receive a dose of chemotherapy today. Hemoglobin 7.4. Patient is having loose stools C. diff sample ordered per oncology. Patient complains of nausea. Patient denies any chest pain or shortness of breath. Patient denies any urinary burning or frequency On 05/15/2019 patient's alert and oriented 3. Planning possible discharge today per oncology services. Patient has received 7 rounds chemotherapy. Patient still complaining of intermittent nausea. C. diff was negative. Patient denies any chest pain or shortness of breath. Patient denies any urinary burning or frequency On 05/16/2019 patient's alert and oriented 3. Yesterday afternoon and evening patient started to have low-grade temps along with elevated heart rate. Chest x-ray completed showing no acute pulmonary process. Patient started on Levaquin per oncology. Blood and urine cultures ordered. EKG ordered a she is on cardiac telemetry monitoring. Magnesium low at 1.4 replace per protocol. Patient did receive platelets yesterday platelets remain low at 14 will receive additional unit of platelets today per oncology. At this time patient denies any specific complaints. Patient denies any cough or shortness of breath. Patient denies any abdominal pain or emesis. Patient is nauseated. Patient denies urinary burning or frequency. On 05/17/2019 patient's alert and oriented 3. Patient reports that she feels improved from yesterday. Patient to get another unit of blood and platelets today per oncology. Heart rate has improved. Patient denies any chest pain or shortness of breath. Patient denies nausea vomiting or diarrhea. Patient denies any urinary burning or frequency. On 05/18/2019 patient's alert and oriented 3. Patient reports she feels improvement. Platelets 18, wBC 0.2 and hemoglobin 7.1. Awaiting oncology plan. At this time patient denies any chest pain or shortness of breath. Patient denies nausea vomiting or diarrhea. Patient denies any urinary burning or frequency Objective - Vital Signs Vital signs: Vital Signs Temp 99.2 F 05/18/19 05:00 Pulse 101 H 05/18/19 05:00 Resp 16 05/18/19 05:00 BP 122/58 05/18/19 05:00 Pulse Ox 95 05/18/19 05:00 Intake & Output 05/17/19 05/18/19 05/18/19 18:59 06:59 18:59 Intake Total 620 1569 Balance 620 1569 Weight 101.6 kg Intake: Intake, IV Titration 950 Amount Sodium Chloride 0.9% 1, 950 000 ml @ 125 mls/hr IV . Q8H [facility] Rx#:[id number] Oral 320 Blood Product 620 299 Platelet Irr Pheresis 2 0 299 Acda Unit [id number] Rc Irr As1 Unit 310 [id number] Other: Voiding Method Bedside Commode Bedside Commode # Voids 2 - Exam Head normocephalic Neck supple Lungs clear to auscultation bilaterally no wheezing or crackles Heart regular rate and rhythm S1-S2, no rub or gallop Abdomen is soft nontender nondistended positive bowel sounds no hepatosplenomegaly Extremities no edema. Bilateral leg boots in place Neuro alert and orientated to 3 - Labs CBC & Chem 7: 05/18/19 07:27 05/18/19 07:27 Labs: Abnormal Lab Results - Last 24 Hours (Table) 05/15/19 05/17/19 05/17/19 Range/Units 11:21 11:15 17:22 WBC (3.8-10.6) k/uL RBC (3.80-5.40) m/uL Hgb (11.4-16.0) gm/dL Hct (34.0-46.0) % Plt Count (150-450) k/uL Sodium (137-145) mmol/L Creatinine (0.52-1.04) mg/dL Glucose (74-99) mg/dL POC Glucose (mg/dL) 139 H 169 H (75-99) mg/dL Calcium (8.4-10.2) mg/dL AST (14-36) U/L Total Protein (6.3-8.2) g/dL Albumin (3.5-5.0) g/dL Crossmatch See Detail 05/17/19 05/18/19 05/18/19 Range/Units 19:56 07:21 07:27 WBC 0.2 L* (3.8-10.6) k/uL RBC 2.22 L (3.80-5.40) m/uL Hgb 7.1 L (11.4-16.0) gm/dL Hct 20.4 L (34.0-46.0) % Plt Count 18 L* (150-450) k/uL Sodium (137-145) mmol/L Creatinine (0.52-1.04) mg/dL Glucose (74-99) mg/dL POC Glucose (mg/dL) 145 H 156 H (75-99) mg/dL Calcium (8.4-10.2) mg/dL AST (14-36) U/L Total Protein (6.3-8.2) g/dL Albumin (3.5-5.0) g/dL Crossmatch 05/18/19 Range/Units 07:27 WBC (3.8-10.6) k/uL RBC (3.80-5.40) m/uL Hgb (11.4-16.0) gm/dL Hct (34.0-46.0) % Plt Count (150-450) k/uL Sodium 136 L (137-145) mmol/L Creatinine 0.47 L (0.52-1.04) mg/dL Glucose 150 H (74-99) mg/dL POC Glucose (mg/dL) (75-99) mg/dL Calcium 7.3 L (8.4-10.2) mg/dL AST 6 L (14-36) U/L Total Protein 5.2 L (6.3-8.2) g/dL Albumin 2.3 L (3.5-5.0) g/dL Crossmatch Microbiology - Last 24 Hours (Table) 05/15/19 21:53 Blood Culture - Preliminary Blood No Growth after 48 hours 05/15/19 19:48 Blood Culture - Preliminary Blood No Growth after 48 hours 05/17/19 02:10 Urine Culture - Preliminary Urine,Voided 05/15/19 02:30 Stool Culture - Preliminary Stool Assessment and Plan Assessment: 1. Acute myelomonocytic leukemia. Patient remained for inpatient chemotherapy. Patient admitted to oncology services. Induction chemo 7+3 regimen completed 2. Multiple joint pain due to acute myeloid leukemia. Home meds resumed. Joint pain improving with chemotherapy 3. History of essential hypertension 4. Diabetes mellitus. Metformin reordered sliding scale insulin ordered 5. History of hyperlipidemia 6. 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 Hemoglobin 6.7. Patient received 3 unit of PRBCs. hgb 6.5. Patient received additional dose of 1 unit PRBCs 7. Pancytopenia. Due to underlining chemotherapy. Oncology service is following. Per oncology no intervention for low WBC. Continue antibiotics antiviral antifungals. 8. Diarrhea. C. diff negative. Per oncology services likely chemo related 9. Low-grade temps. Chest x-ray showing no acute pulmonary process. Blood and urine cultures ordered. Patient started on Levaquin per oncology services 10. Tachycardia. Patient currently on cardiac telemetry monitoring. EKG has been ordered. Magnesium level 1.4 will replace. Resolved 11. Positive stool for occult blood. Patient having low platelets due to chemotherapy patient to receive platelets today per oncology will continue monitor hemoglobin and transfuse for less than 7 or patient is symptomatic per oncology 12. Chemo-induced anorexia. Marinol has been started per oncology I performed an examination of the patient and discussed their management with the Nurse Practitioner. I have reviewed the Nurse Practitioner's notes and ag ree with the documented findings and plan of care
[2019-05-18 11:51] LABS: Glucose,Whole Blood 165 mg/dL (75-99)
[2019-05-18] MEDS: LEVOFLOXACIN 500 MG TAB PO SCH (12:55)
--- NOTE | 2019-05-18 15:11 | P.PN ---
Subjective Progress Note Date: 05/18/19 Principal diagnosis: AML CBC Stable, afebrile She is not moving out of bed except to go to bathroom. She is still having diarrhea and unable to tolerate full diet. Objective - Vital Signs Vital signs: Vital Signs Temp 98.1 F 05/18/19 12:22 Pulse 92 05/18/19 12:22 Resp 18 05/18/19 12:22 BP 114/72 05/18/19 12:22 Pulse Ox 96 05/18/19 12:22 Intake & Output 05/17/19 05/18/19 05/18/19 18:59 06:59 18:59 Intake Total 620 1569 0 Balance 620 1569 0 Weight 101.6 kg 101.6 kg Intake: Intake, IV Titration 950 Amount Sodium Chloride 0.9% 1, 950 000 ml @ 125 mls/hr IV . Q8H [facility] Rx#:[id number] Oral 320 0 Blood Product 620 299 Platelet Irr Pheresis 2 0 299 Acda Unit [id number] Rc Irr As1 Unit 310 [id number] Other: Voiding Method Bedside Commode Bedside Commode Bedside Commode # Voids 2 - Exam - Constitutional General appearance: Present: average body habitus, cooperative, no acute distress - EENT Eyes: Present: anicteric sclerae, EOMI ENT: Present: hearing grossly normal, normal oropharynx - Respiratory Respiratory: bilateral: CTA - Cardiovascular Rhythm: regular Heart sounds: normal: S1, S2 Abnormal Heart Sounds: Absent: systolic murmur, diastolic murmur, rub, S3 Gallop, S4 Gallop, click, other - Peripheral edema leg Peripheral Edema: bilateral: None - Gastrointestinal General gastrointestinal: Present: normal bowel sounds, soft - Genitourinary Genitourinary Comment(s): Perineal area examination whitish color and odor of yeast, suspicious for yeast infection. - Neurologic Neurologic: Present: CNII-XII intact - Musculoskeletal Musculoskeletal: Present: generalized weakness, strength equal bilaterally - Psychiatric Psychiatric: Present: A&O x's 3, appropriate affect, intact judgment & insight - Labs CBC & Chem 7: 05/18/19 07:27 05/18/19 07:27 Labs: Abnormal Lab Results - Last 24 Hours (Table) 05/15/19 05/17/19 05/17/19 Range/Units 11:21 17:22 19:56 WBC (3.8-10.6) k/uL RBC (3.80-5.40) m/uL Hgb (11.4-16.0) gm/dL Hct (34.0-46.0) % Plt Count (150-450) k/uL Sodium (137-145) mmol/L Creatinine (0.52-1.04) mg/dL Glucose (74-99) mg/dL POC Glucose (mg/dL) 169 H 145 H (75-99) mg/dL Calcium (8.4-10.2) mg/dL AST (14-36) U/L Total Protein (6.3-8.2) g/dL Albumin (3.5-5.0) g/dL Crossmatch See Detail 05/18/19 05/18/19 05/18/19 Range/Units 07:21 07:27 07:27 WBC 0.2 L* (3.8-10.6) k/uL RBC 2.22 L (3.80-5.40) m/uL Hgb 7.1 L (11.4-16.0) gm/dL Hct 20.4 L (34.0-46.0) % Plt Count 18 L* (150-450) k/uL Sodium 136 L (137-145) mmol/L Creatinine 0.47 L (0.52-1.04) mg/dL Glucose 150 H (74-99) mg/dL POC Glucose (mg/dL) 156 H (75-99) mg/dL Calcium 7.3 L (8.4-10.2) mg/dL AST 6 L (14-36) U/L Total Protein 5.2 L (6.3-8.2) g/dL Albumin 2.3 L (3.5-5.0) g/dL Crossmatch 05/18/19 Range/Units 11:50 WBC (3.8-10.6) k/uL RBC (3.80-5.40) m/uL Hgb (11.4-16.0) gm/dL Hct (34.0-46.0) % Plt Count (150-450) k/uL Sodium (137-145) mmol/L Creatinine (0.52-1.04) mg/dL Glucose (74-99) mg/dL POC Glucose (mg/dL) 165 H (75-99) mg/dL Calcium (8.4-10.2) mg/dL AST (14-36) U/L Total Protein (6.3-8.2) g/dL Albumin (3.5-5.0) g/dL Crossmatch Microbiology - Last 24 Hours (Table) 05/15/19 21:53 Blood Culture - Preliminary Blood No Growth after 48 hours 05/15/19 19:48 Blood Culture - Preliminary Blood No Growth after 48 hours 05/17/19 02:10 Urine Culture - Preliminary Urine,Voided 05/15/19 02:30 Stool Culture - Preliminary Stool Assessment and Plan Plan: Pancytopenia due to antineoplastic chemotherapy Hemoglobin is 7.1, no intervention Transfusion for hemoglobin less than 7, be ve ry conservative with transfusions. Platelet count is 18K today, no acute intervention. Transfuse for platelet count of less than 10,000 or if symptomatic. 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 Completed Supportive medications ordered, and sent to Pharmacy Plan for 3x a week blood draw in office next week if discharged today or over weekend. (3) Polyarthralgia ? if r/t AML. Improved with tylenol #3, pt is now able to ambulate with bilateral leg braces and walker. D/W case [facility] PT. Encouraged pt remove leg braces due to skin breakdown concerns and to evaluate pain and strength in the ankles. Encouraged her to follow PT instructions and use their support when doing therapy. Diarrhea - Chemo related. C diff neg. Occult positive, hematochezia noted. - Hgb stable today, when taken into account last transfusion as well as chemo effects. - Platelets ordered for today until stool is at least grossly negative for blood. 1 dose of DDAVP given 05/17 - Cont CBC daily. - Antidiarrheals ordered. - Add Questran Lisa infection of genital region Neutropenic Colitis - Bowel Rest - Topical antifungal prescribed. - Nystatin swish and swallow prophylaxic prescribed as well, QT prolon with diflucan, if further infectious fungal presents benefit of systemic antifungal out weighs risk Anorexia, Decreased PO Appetite: - Secondary to Lisa oral and AML - Marinol is on board - Unable to increase PO intable untol colitis improved Plan: Antiviral, antifungal, antibacterial prescriptions all sent to patient's [facility] in [place]. Antibiotics Compazine prescription also sent. If patient is well enough and completes therapy on time she has a CBC follow-up appt on Tuesday at 9:15 AM, she will make further appointments at that time. - Encourage patient up and out of bed - In chair all meals - CLose monitoring of stool and diarrhea and monitor for blood
[2019-05-18 16:59] LABS: Glucose,Whole Blood 153 mg/dL (75-99)
[2019-05-18 20:24] LABS: Glucose,Whole Blood 181 mg/dL (75-99)
[2019-05-18] MEDS: CHOLESTYRAMINE (WITH SUGAR) 4 GM PACKET PO SCH (22:06)
[2019-05-19] MEDS: SODIUM CHLORIDE 0.9% 1,000 ML IV SCH ×4 (00:20→21:39)
[2019-05-19 07:17] LABS: Glucose,Whole Blood 154 mg/dL (75-99)
[2019-05-19] MEDS: INSULIN ASPART (NovoLOG) 100 UNIT/ML VIAL SQ SCH ×4 (07:47→21:26)
[2019-05-19 07:49] LABS: ALT 13 U/L (9-52); AST 6 U/L (14-36); African American GFR (CKD) >90 (>60 ml/min/1.73 sqM); Albumin 2.5 g/dL (3.5-5.0); Alkaline Phosphatase 66 U/L (38-126); Anion Gap 7 mmol/L; Blood Urea Nitrogen 8 mg/dL (7-17); Calcium 6.9 mg/dL (8.4-10.2); Carbon Dioxide 29 mmol/L (22-30); Chloride 100 mmol/L (98-107); Glucose 149 mg/dL (74-99); Magnesium 1.8 mg/dL (1.6-2.3); Sodium 136 mmol/L (137-145); Total Bilirubin 1.2 mg/dL (0.2-1.3); Total Protein 5.6 g/dL (6.3-8.2)
[2019-05-19] MEDS: metFORMIN 500 MG TAB PO SCH ×2 (07:56→21:33)
[2019-05-19] MEDS: DRONABINOL 2.5 MG CAP PO SCH ×2 (07:56→17:39)
[2019-05-19] MEDS: CHOLECALCIFEROL 400 UNIT TAB PO SCH (07:56)
[2019-05-19] MEDS: CITALOPRAM HYDROBROMIDE 20 MG TAB PO SCH (07:56)
[2019-05-19] MEDS: LISINOPRIL-HCTZ 10-12.5 MG 1 EACH TAB PO SCH (07:56)
[2019-05-19] MEDS: ALLOPURINOL 300 MG TAB PO SCH (07:56)
[2019-05-19] MEDS: ACYCLOVIR 200 MG CAP PO SCH ×2 (07:56→21:33)
[2019-05-19] MEDS: FLUCONAZOLE 100 MG TAB PO SCH (07:57)
[2019-05-19] MEDS: PRAVASTATIN SODIUM 20 MG TAB PO SCH (07:57)
[2019-05-19] MEDS: NYSTATIN 100,000 UNIT/ML SUSP 500,000 UNIT/5 ML CUP PO SCH ×4 (07:57→21:35)
[2019-05-19] MEDS: NYSTATIN 100,000 UNIT/GM POWD 15 GM TOPICAL SCH ×2 (07:58→21:34)
[2019-05-19] MEDS: SENNOSIDES-DOCUSATE SODIUM 1 EACH TAB PO SCH ×2 (07:58→21:27)
[2019-05-19] MEDS: SALT AND SODA MOUTHWASH 1,000 ML PO SCH ×4 (07:58→21:34)
[2019-05-19] MEDS: Acetaminophen-Codeine 300-30mg TAB PO PRN ×3 (08:02→19:49)
[2019-05-19 08:05] LABS: Potassium 2.7 mmol/L (3.5-5.1)
[2019-05-19] MEDS ORDERED: Potassium Replacement Protocol 1 EACH MISC MISCELLANE PRN ×2 (08:05→18:25)
[2019-05-19] MEDS: POTASSIUM CHLORIDE 20 MEQ in WATER FOR INJECTION 1 100ML.BAG IVPB SCH ×3 (08:36→12:03)
[2019-05-19 08:49] LABS: MCH 29.8 pg (25.0-35.0); MCHC 33.2 g/dL (31.0-37.0); MCV 89.8 fL (80.0-100.0); Mean Platelet Volume 7.4; RBC 2.34 m/uL (3.80-5.40); RDW 14.6 % (11.5-15.5)
[2019-05-19 08:55] LABS: WBC 0.2 k/uL (3.8-10.6)
[2019-05-19] MEDS: CHOLESTYRAMINE (WITH SUGAR) 4 GM PACKET PO SCH ×4 (09:39→21:36)
[2019-05-19] MEDS: POTASSIUM CHLORIDE ER 20 MEQ TAB.ER PO SCH ×5 (09:40→21:33)
[2019-05-19 11:27] LABS: Glucose,Whole Blood 195 mg/dL (75-99)
[2019-05-19] MEDS: LEVOFLOXACIN 500 MG TAB PO SCH (11:59)
[2019-05-19 13:04] LABS: Platelet Count 4 k/uL (150-450)
[2019-05-19 17:16] LABS: Glucose,Whole Blood 166 mg/dL (75-99)
--- NOTE | 2019-05-19 17:43 | P.PN ---
Subjective Progress Note Date: 05/19/19 Principal diagnosis: AML Platelets 4, hgb 7, k = 2.7 still with diarrhea Objective - Vital Signs Vital signs: Vital Signs Temp 97.2 F L 05/19/19 16:14 Pulse 85 05/19/19 16:14 Resp 18 05/19/19 16:14 BP 163/80 05/19/19 16:14 Pulse Ox 98 05/19/19 16:14 Intake & Output 05/18/19 05/19/19 05/19/19 18:59 06:59 18:59 Intake Total 2751 1590 2192 Balance 2751 1590 2192 Weight 101.6 kg Intake: Intake, IV Titration 1500 1000 1175 Amount Potassium Chloride 20 meq 300 In Water For Injection 1 100ml.bag @ 50 mls/hr IVPB Q2H [facility] Rx#: [id number] Sodium Chloride 0.9% 1, 1500 1000 875 000 ml @ 125 mls/hr IV . Q8H [facility] Rx#:[id number] Oral 1251 590 720 Blood Product 297 Platelet Irr Pheresis 2 297 Acda Unit [id number] Other: Voiding Method Bedside Commode Bedside Commode Bedside Commode # Voids 3 3 4 # Bowel Movements 1 2 - Exam - Constitutional General appearance: Present: average body habitus, cooperative, no acute distress - EENT Eyes: Present: anicteric sclerae, EOMI ENT: Present: hearing grossly normal, normal oropharynx - Respiratory Respiratory: bilateral: CTA - Cardiovascular Rhythm: regular Heart sounds: normal: S1, S2 Abnormal Heart Sounds: Absent: systolic murmur, diastolic murmur, rub, S3 Gallop, S4 Gallop, click, other - Peripheral edema leg Peripheral Edema: bilateral: None - Gastrointestinal General gastrointestinal: Present: normal bowel sounds, soft - Genitourinary Genitourinary Comment(s): Perineal area examination whitish color and odor of yeast, suspicious for yeast infection. - Neurologic Neurologic: Present: CNII-XII intact - Musculoskeletal Musculoskeletal: Present: generalized weakness, strength equal bilaterally - Psychiatric Psychiatric: Present: A&O x's 3, appropriate affect, intact judgment & insight - Labs CBC & Chem 7: 05/19/19 17:24 05/19/19 17:24 Labs: Abnormal Lab Results - Last 24 Hours (Table) 05/18/19 05/18/1905/19/19 Range/Units 20:23 21:37 07:00 WBC 0.2 L* (3.8-10.6) k/uL RBC 2.34 L (3.80-5.40) m/uL Hgb 7.0 L (11.4-16.0) gm/dL Hct 21.0 L (34.0-46.0) % Plt Count 4 L* D (150-450) k/uL APTT 31.0 H (22.0-30.0) sec Sodium (137-145) mmol/L Potassium (3.5-5.1) mmol/L Creatinine (0.52-1.04) mg/dL Glucose (74-99) mg/dL POC Glucose (mg/dL) 181 H (75-99) mg/dL Calcium (8.4-10.2) mg/dL AST (14-36) U/L Total Protein (6.3-8.2) g/dL Albumin (3.5-5.0) g/dL 05/19/19 05/19/19 05/19/19 Range/Units 07:00 07:14 11:22 WBC (3.8-10.6) k/uL RBC (3.80-5.40) m/uL Hgb (11.4-16.0) gm/dL Hct (34.0-46.0) % Plt Count (150-450) k/uL APTT (22.0-30.0) sec Sodium 136 L (137-145) mmol/L Potassium 2.7 L* (3.5-5.1) mmol/L Creatinine 0.40 L (0.52-1.04) mg/dL Glucose 149 H (74-99) mg/dL POC Glucose (mg/dL) 154 H 195 H (75-99) mg/dL Calcium 6.9 L (8.4-10.2) mg/dL AST 6 L (14-36) U/L Total Protein 5.6 L (6.3-8.2) g/dL Albumin 2.5 L (3.5-5.0) g/dL 05/19/19 Range/Units 17:13 WBC (3.8-10.6) k/uL RBC (3.80-5.40) m/uL Hgb (11.4-16.0) gm/dL Hct (34.0-46.0) % Plt Count (150-450) k/uL APTT (22.0-30.0) sec Sodium (137-145) mmol/L Potassium (3.5-5.1) mmol/L Creatinine (0.52-1.04) mg/dL Glucose (74-99) mg/dL POC Glucose (mg/dL) 166 H (75-99) mg/dL Calcium (8.4-10.2) mg/dL AST (14-36) U/L Total Protein (6.3-8.2) g/dL Albumin (3.5-5.0) g/dL Microbiology - Last 24 Hours (Table) 05/15/19 02:30 Stool Culture - Preliminary Stool 05/15/19 21:53 Blood Culture - Preliminary Blood No Growth after 72 hours 05/15/19 19:48 Blood Culture - Preliminary Blood No Growth after 72 hours 05/17/19 02:10 Urine Culture - Final Urine,Voided Assessment and Plan Plan: Pancytopenia due to antineoplastic chemotherapy Hemoglobin is 7.1, no intervention Transfusion for hemoglobin less than 7, be very conservative with transfusions. Platelet count is 18K today, no acute intervention. Transfuse for platelet count of less than 10,000 or if symptomatic. 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 Completed Supportive medications ordered, and sent to Pharmacy Plan for 3x a week blood draw in office next week if discharged today or over weekend. (3) Polyarthralgia ? if r/t AML. Improved with tylenol #3, pt is now able to ambulate with bilateral leg braces and walker. D/W case wtih PT. Encouraged pt remove leg braces due to skin breakdown concerns and to evaluate pain and strength in the ankles. Encouraged her to follow PT instructions and use their support when doing therapy. Diarrhea - Chemo related. C diff neg. Occult positive, hematochezia noted. - Hgb stable today, when taken into account last transfusion as well as chemo effects. - Platelets ordered for today until stool is at least grossly negative for blood. 1 dose of DDAVP given 05/17 - Cont CBC daily. - Antidiarrheals ordered. - Add Questran Lisa infection of genital region Hypokalemia: - K = 2.7, Mag ok Repeat K = 3.2 - Repeat in am Neutropenic Colitis - Bowel Rest - Topical antifungal prescribed. - Nystatin swish and swallow prophylaxic prescribed as well, QT prolon with diflucan, if further infectious fungal presents benefit of systemic antifungal out weighs risk Anorexia, Decreased PO Appetite: - Secondary to Lisa oral and AML - Marinol is on board - Unable to increase PO intable untol colitis improved Plan: Antiviral, antifungal, antibacterial prescriptions all sent to patient's [facility] in [place]. Antibiotics Compazine prescription also sent. If patient is well enough and completes therapy on time she has a CBC follow-up appt on Tuesday at 9:15 AM, she will make further appointments at that time. - Encourage patient up and out of bed - In chair all meals - CLose monitoring of stool and diarrhea and monitor for blood - Recheck Lytes and CBC in am - No rec for Discharge today - add ne
[2019-05-19 17:46] LABS: HCT 21.5 % (34.0-46.0); HGB 7.2 gm/dL (11.4-16.0); MCH 31.6 pg (25.0-35.0); MCHC 33.4 g/dL (31.0-37.0); MCV 94.7 fL (80.0-100.0); Mean Platelet Volume 8.8; RBC 2.27 m/uL (3.80-5.40); RDW 15.1 % (11.5-15.5)
[2019-05-19 17:49] LABS: WBC 0.2 k/uL (3.8-10.6)
[2019-05-19 18:04] LABS: Platelet Count 24 k/uL (150-450)
[2019-05-19 18:09] LABS: INR 1.1 (<1.2); Prothrombin Time 11.7 sec (9.0-12.0)
[2019-05-19 18:18] LABS: African American GFR (CKD) >90 (>60 ml/min/1.73 sqM); Anion Gap 8 mmol/L; Blood Urea Nitrogen 8 mg/dL (7-17); Calcium 7.2 mg/dL (8.4-10.2); Carbon Dioxide 27 mmol/L (22-30); Chloride 100 mmol/L (98-107); Glucose 159 mg/dL (74-99); Potassium 3.2 mmol/L (3.5-5.1); Sodium 135 mmol/L (137-145)
--- NOTE | 2019-05-19 19:53 | P.PN ---
Subjective Progress Note Date: 05/19/19 This is a 64-year-old patient of Dr. miller. Patient presents for inpatient chemotherapy admitted to oncology services. Patient was recently admitted on 04/10/2019 for multiple joint swelling along with abnormal CBC with increased blastocyte. Patient underwent but bone marrow aspiration biopsy on 04/13/2019. Per oncology service is findings consistent with acute myeloid leukemia. Additional medical history includes diabetes mellitus, hyperlipidemia and hypertension. Patient had PICC line placed to receive chemotherapy. Patient planning first round of chemotherapy today patient will require hospitalization for 7 days. This time patient denies any chest pain or shortness breath. Patient denies nausea vomiting or diarrhea. Patient denies any urinary burning or frequency. She does reports she still having chronic pain due to multiple joint swelling. 2-D echo completed showing EF of 60-65%. On 05/08/2019 patient underwent prescribed chemotherapy yesterday. Patient reports that she is feeling well. Small amount of nausea. Patient reports improvement with her joint discomfort. Patient denies any chest pain or shortness of breath patient denies nausea vomiting or diarrhea. Patient denies any urinary burning or frequency. On 05/09/2019 patient is alert and oriented 3. Patient reports a small amount of nausea but states overall she is feeling well. Patient did receive 1 unit of PRBCs for hemoglobin 6. 9. Repeat hemoglobin 7.9. At this time patient denies chest pain or shortness breath. Patient denies nausea vomiting diarrhea. Patient denies any urinary burning or frequency. On 05/10/2019 patient's alert and oriented 3 patient is still having some nausea and feels overall well. Patient reports improvement with her joint discomfort hemoglobin 7.1. Patient denies any sores in mouth. Patient denies any rashes or open lesions. Patient denies nausea vomiting or diarrhea. UA was negative On 05/11/2019 patient's alert and oriented 3. Patient complains of some nausea but is controlled with medication and blas angel. Patient has been tolerating chemo. Plan for discharge on Tuesday. Patient denies any chest pain or shortness breath. Patient denies nausea vomiting or diarrhea. Patient denies any urinary burning or frequency. On 05/12/2019 patient was seen and examined on the oncology floor she is alert and oriented 3 in no apparent distress very pleasant complaining of nausea otherwise she denies any complaints there is no fever or chills no headache or dizziness no chest pain no shortness of breath no cough no nausea or vomiting no abdominal pain no diarrhea and no urinary symptoms On 05/13/2018 patient remains alert and oriented 3. Patient complaining some nausea and sleepiness but denies any other acute symptoms. Patient denies chest pain or shortness breath. Patient denies any urinary burning or frequency. Hemoglobin stable at 7.6 On 05/14/2019 patient's alert and oriented 3. Patient to receive a dose of chemotherapy today. Hemoglobin 7.4. Patient is having loose stools C. diff sample ordered per oncology. Patient complains of nausea. Patient denies any chest pain or shortness of breath. Patient denies any urinary burning or frequency On 05/15/2019 patient's alert and oriented 3. Planning possible discharge today per oncology services. Patient has received 7 rounds chemotherapy. Patient still complaining of intermittent nausea. C. diff was negative. Patient denies any chest pain or shortness of breath. Patient denies any urinary burning or frequency On 05/16/2019 patient's alert and oriented 3. Yesterday afternoon and evening patient started to have low-grade temps along with elevated heart rate. Chest x-ray completed showing no acute pulmonary process. Patient started on Levaquin per oncology. Blood and urine cultures ordered. EKG ordered a she is on cardiac telemetry monitoring. Magnesium low at 1.4 replace per protocol. Patient did receive platelets yesterday platelets remain low at 14 will receive additional unit of platelets today per oncology. At this time patient denies any specific complaints. Patient denies any cough or shortness of breath. Patient denies any abdominal pain or emesis. Patient is nauseated. Patient denies urinary burning or frequency. On 05/17/2019 patient's alert and oriented 3. Patient reports that she feels improved from yesterday. Patient to get another unit of blood and platelets today per oncology. Heart rate has improved. Patient denies any chest pain or shortness of breath. Patient denies nausea vomiting or diarrhea. Patient denies any urinary burning or frequency. On 05/18/2019 patient's alert and oriented 3. Patient reports she feels improvement. Platelets 18, wBC 0.2 and hemoglobin 7.1. Awaiting oncology plan. At this time patient denies any chest pain or shortness of breath. Patient denies nausea vomiting or diarrhea. Patient denies any urinary burning or frequency On 05/19/2019 patient was seen and examined on the medical floor she is alert and oriented 3 in no apparent distress, white blood count remains at 0.2 hemoglobin 7.2 and platelet count 24 potassium is low at 3.2 Clinically patient is doing well she is alert and oriented she denies any complaints there is no fever or chills no headache or dizziness no chest pain no shortness of breath no cough no nausea or vomiting no abdominal pain no diarrhea and no urinary symptoms Objective - Vital Signs Vital signs: Vital Signs Temp 97.2 F L 05/19/19 16:14 Pulse 85 05/19/19 16:14 Resp 18 05/19/19 16:14 BP 163/80 05/19/19 16:14 Pulse Ox 98 05/19/19 16:14 Intake & Output 05/19/19 05/19/19 05/20/19 06:59 18:59 06:59 Intake Total 1590 2192 Balance 1590 2192 Intake: Intake, IV Titration 1000 1175 Amount Potassium Chloride 20 meq 300 In Water For Injection 1 100ml.bag @ 50 mls/hr IVPB Q2H LAST Rx#: [id number] Sodium Chloride 0.9% 1, 1000 875 000 ml @ 125 mls/hr IV . Q8H LAST Rx#:[id number] Oral 590 720 Blood Product 297 Platelet Irr Pheresis 2 297 Acda Unit [id number] Other: Voiding Method Bedside Commode Bedside Commode # Voids 3 4 # Bowel Movements 1 2 - Exam In general patient is alert and oriented 3 in no apparent distress Head normocephalic and atraumatic Neck supple no JVD no goiter Lungs clear to auscultation bilaterally no wheezing or crackles Heart regular rate and rhythm S1-S2, no rub or gallop Abdomen is soft nontender nondistended positive bowel sounds no hepatosplenomegaly Extremities no edema. Bilateral leg boots in place Neuro alert and orientated to 3 - Labs CBC & Chem 7: 05/19/19 17:24 05/19/19 17:24 Labs: Abnormal Lab Results - Last 24 Hours (Table) 05/18/19 05/18/19 05/19/19 Range/Units 20:23 21:37 07:00 WBC 0.2 L* (3.8-10.6) k/uL RBC 2.34 L (3.80-5.40) m/uL Hgb 7.0 L (11.4-16.0) gm/dL Hct 21.0 L (34.0-46.0) % Plt Count 4 L* D (150-450) k/uL APTT 31.0 H (22.0-30.0) sec Sodium (137-145) mmol/L Potassium (3.5-5.1) mmol/L Creatinine (0.52-1.04) mg/dL Glucose (74-99) mg/dL POC Glucose (mg/dL) 181 H (75-99) mg/dL Calcium (8.4-10.2) mg/dL AST (14-36) U/L Total Protein (6.3-8.2) g/dL Albumin (3.5-5.0) g/dL 05/19/19 05/19/19 05/19/19 Range/Units 07:00 07:14 11:22 WBC (3.8-10.6) k/uL RBC (3.80-5.40) m/uL Hgb (11.4-16.0) gm/dL Hct (34.0-46.0) % Plt Count (150-450) k/uL APTT (22.0-30.0) sec Sodium 136 L (137-145) mmol/L Potassium 2.7 L* (3.5-5.1) mmol/L Creatinine 0.40 L (0.52-1.04) mg/dL Glucose 149 H (74-99) mg/dL POC Glucose (mg/dL) 154 H 195 H (75-99) mg/dL Calcium 6.9 L (8.4-10.2) mg/dL AST 6 L (14-36) U/L Total Protein 5.6 L (6.3-8.2) g/dL Albumin 2.5 L (3.5-5.0) g/dL 05/19/19 05/19/19 05/19/19 Range/Units 17:13 17:24 17:24 WBC 0.2 L* (3.8-10.6) k/uL RBC 2.27 L (3.80-5.40) m/uL Hgb 7.2 L (11.4-16.0) gm/dL Hct 21.5 L (34.0-46.0) % Plt Count 24 L D (150-450) k/uL APTT (22.0-30.0) sec Sodium 135 L (137-145) mmol/L Potassium 3.2 L (3.5-5.1) mmol/L Creatinine 0.37 L (0.52-1.04) mg/dL Glucose 159 H (74-99) mg/dL POC Glucose (mg/dL) 166 H (75-99) mg/dL Calcium 7.2 L (8.4-10.2) mg/dL AST (14-36) U/L Total Protein (6.3-8.2) g/dL Albumin (3.5-5.0) g/dL Microbiology - Last 24 Hours (Table) 05/15/19 02:30 Stool Culture - Preliminary Stool 05/15/19 21:53 Blood Culture - Preliminary Blood No Growth after 72 hours 05/15/19 19:48 Blood Culture - Preliminary Blood No Growth after 72 hours Assessment and Plan Plan: 1. Acute myelomonocytic leukemia. Patient remained for inpatient chemotherapy. Patient admitted to oncology services. Induction chemo 7+3 regimen completed 2. Multiple joint pain due to acute myeloid leukemia. Home meds resumed. Joint pain improving with chemotherapy 3. History of essential hypertension 4. Diabetes mellitus. Metformin reordered sliding scale insulin ordered 5. History of hyperlipidemia 6. 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 Hemoglobin 6.7. Patient received 3 unit of PRBCs. hgb 6.5. Patient received additional dose of 1 unit PRBCs 7. Pancytopenia. Due to underlining chemotherapy. Oncology service is following. Per oncology no intervention for low WBC. Continue antibiotics antiviral antifungals. 8. Diarrhea. C. diff negative. Per oncology services likely chemo related 9. Low-grade temps. Chest x-ray showing no acute pulmonary process. Blood and urine cultures ordered. Patient started on Levaquin per oncology services 10. Tachycardia. Patient currently on cardiac telemetry monitoring. EKG has been ordered. Magnesium level 1.4 will replace. Resolved 11. Positive stool for occult blood. Patient having low platelets due to chemotherapy patient to receive platelets today per oncology will continue monitor hemoglobin and transfuse for less than 7 or patient is symptomatic per oncology 12. Chemo-induced anorexia. Marinol has been started per oncology
[2019-05-19 20:06] LABS: Glucose,Whole Blood 145 mg/dL (75-99)
[2019-05-20] MEDS: Acetaminophen-Codeine 300-30mg TAB PO PRN ×3 (02:36→18:31)
[2019-05-20 07:05] LABS: Glucose,Whole Blood 171 mg/dL (75-99)
[2019-05-20] MEDS: SALT AND SODA MOUTHWASH 1,000 ML PO SCH ×4 (07:18→21:24)
[2019-05-20] MEDS: NYSTATIN 100,000 UNIT/ML SUSP 500,000 UNIT/5 ML CUP PO SCH ×4 (07:18→21:24)
[2019-05-20] MEDS: CITALOPRAM HYDROBROMIDE 20 MG TAB PO SCH (07:26)
[2019-05-20] MEDS: metFORMIN 500 MG TAB PO SCH ×2 (07:26→21:33)
[2019-05-20] MEDS: DRONABINOL 2.5 MG CAP PO SCH ×2 (07:26→17:21)
[2019-05-20] MEDS: INSULIN ASPART (NovoLOG) 100 UNIT/ML VIAL SQ SCH ×4 (07:26→21:35)
[2019-05-20] MEDS: ALLOPURINOL 300 MG TAB PO SCH (07:26)
[2019-05-20] MEDS: LISINOPRIL-HCTZ 10-12.5 MG 1 EACH TAB PO SCH (07:27)
[2019-05-20] MEDS: CHOLECALCIFEROL 400 UNIT TAB PO SCH (07:27)
[2019-05-20] MEDS: FLUCONAZOLE 100 MG TAB PO SCH (07:28)
[2019-05-20] MEDS: PRAVASTATIN SODIUM 20 MG TAB PO SCH (07:29)
[2019-05-20] MEDS: NYSTATIN 100,000 UNIT/GM POWD 15 GM TOPICAL SCH ×2 (07:30→21:24)
[2019-05-20] MEDS: SENNOSIDES-DOCUSATE SODIUM 1 EACH TAB PO SCH ×2 (07:30→21:24)
[2019-05-20] MEDS: SODIUM CHLORIDE 0.9% 1,000 ML IV SCH ×2 (07:32→16:42)
[2019-05-20] MEDS: ACYCLOVIR 200 MG CAP PO SCH ×2 (07:32→21:34)
[2019-05-20] MEDS: CHOLESTYRAMINE (WITH SUGAR) 4 GM PACKET PO SCH ×4 (10:00→21:24)
--- NOTE | 2019-05-20 10:59 | P.PN ---
<Tawanna Sánchez - Last Filed: 05/20/19 12:28> Subjective Progress Note Date: 05/20/19 Principal diagnosis: AML Hemoglobin and platlets improved with transfusions yesterday. Potassium level 3.3, Mag - Stable Objective - Vital Signs Vital signs: Vital Signs Temp 97.8 F 05/20/19 07:55 Pulse 85 05/20/19 08:00 Resp 20 05/20/19 07:55 BP 156/76 05/20/19 07:55 Pulse Ox 97 05/20/19 07:55 Intake & Output 05/19/19 05/20/19 05/20/19 18:59 06:59 18:59 Intake Total 2192 2000 Output Total 400 Balance 2192 1600 Intake: Intake, IV Titration 1175 2000 Amount Potassium Chloride 20 meq 300 In Water For Injection 1 100ml.bag @ 50 mls/hr IVPB Q2H LAST Rx#: [id number] Sodium Chloride 0.9% 1, 875 2000 000 ml @ 125 mls/hr IV . Q8H LAST Rx#:[id number] Oral 720 Blood Product 297 Platelet Irr Pheresis 2 297 Acda Unit [id number] Output: Urine 400 Other: Voiding Method Bedside Commode Bedside Commode # Voids 4 2 1 # Bowel Movements 2 1 - Labs CBC & Chem 7: 05/20/19 10:49 05/20/19 10:49 Labs: Abnormal Lab Results - Last 24 Hours (Table) 05/19/19 05/19/19 05/19/19 Range/Units 07:00 11:22 17:13 WBC (3.8-10.6) k/uL RBC (3.80-5.40) m/uL Hgb (11.4-16.0) gm/dL Hct (34.0-46.0) % Plt Count 4 L* D (150-450) k/uL Sodium (137-145) mmol/L Potassium (3.5-5.1) mmol/L Creatinine (0.52-1.04) mg/dL Glucose (74-99) mg/dL POC Glucose (mg/dL) 195 H 166 H (75-99) mg/dL Calcium (8.4-10.2) mg/dL 05/19/19 05/19/19 05/19/19 Range/Units 17:24 17:24 20:04 WBC 0.2 L* (3.8-10.6) k/uL RBC 2.27 L (3.80-5.40) m/uL Hgb 7.2 L (11.4-16.0) gm/dL Hct 21.5 L (34.0-46.0) % Plt Count 24 L D (150-450) k/uL Sodium 135 L (137-145) mmol/L Potassium 3.2 L (3.5-5.1) mmol/L Creatinine 0.37 L (0.52-1.04) mg/dL Glucose 159 H (74-99) mg/dL POC Glucose (mg/dL) 145 H (75-99) mg/dL Calcium 7.2 L (8.4-10.2) mg/dL 05/20/19 Range/Units 07:04 WBC (3.8-10.6) k/uL RBC (3.80-5.40) m/uL Hgb (11.4-16.0) gm/dL Hct (34.0-46.0) % Plt Count (150-450) k/uL Sodium (137-145) mmol/L Potassium (3.5-5.1) mmol/L Creatinine (0.52-1.04) mg/dL Glucose (74-99) mg/dL POC Glucose (mg/dL) 171 H (75-99) mg/dL Calcium (8.4-10.2) mg/dL Microbiology - Last 24 Hours (Table) 05/15/19 02:30 Stool Culture - Final Stool 05/15/19 21:53 Blood Culture - Preliminary Blood No Growth after 96 hours 05/15/19 19:48 Blood Culture - Preliminary Blood No Growth after 96 hours Assessment and Plan Plan: Pancytopenia due to antineoplastic chemotherapy Hemoglobin is 7.1, no intervention Transfusion for hemoglobin less than 7, be very conservative with transfusions. Platelet count is 18K today, no acute intervention. Transfuse for platelet count of less than 10,000 or if symptomatic. 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 Completed Supportive medications ordered, and sent to Pharmacy Plan for 3x a week blood draw in office next week if discharged today or over weekend. (3) Polyarthralgia ? if r/t AML. Improved with tylenol #3, pt is now able to ambulate with bilateral leg braces and walker. D/W case wtih PT. Encouraged pt remove leg braces due to skin breakdown concerns and to evaluate pain and strength in the ankles. Encouraged her to follow PT instructions and use their support when doing therapy. Diarrhea - Chemo related. C diff neg. Occult positive, hematochezia noted. - Hgb stable today, when taken into account last transfusion as well as chemo effects. - Platelets ordered for today until stool is at least grossly negative for blood. 1 dose of DDAVP given 05/17 - Cont CBC daily. - Antidiarrheals ordered. - Add Questran Lisa infection of genital region Hypokalemia: - K = 3.2 - Supp ordered Neutropenic Colitis - Bowel Rest - Topical antifungal prescribed. - Nystatin swish and swallow prophylaxic prescribed as well, QT prolon with diflucan, if further infectious fungal presents benefit of systemic antifungal out weighs risk Anorexia, Decreased PO Appetite: - Secondary to Lisa oral and AML - Marinol is on board - Unable to increase PO intable untol colitis improved Plan: Antiviral, antifungal, antibacterial prescriptions all sent to patient's [facility] in [place]. Antibiotics Compazine prescription also sent. If patient is well enough and completes therapy on time she has a CBC follow-up appt on Tuesday at 9:15 AM, she will make further appointments at that time. - Encourage patient up and out of bed - In chair all meals - CLose monitoring of stool and diarrhea and monitor for blood - Recheck Lytes and CBC in am - If D/C today will be seen in office Tuesday, Tuesday, and Tuesday blood check - questran <Nick Jeronimo - Last Filed: 05/20/19 19:00> Objective - Vital Signs Vital signs: Vital Signs Temp 98.6 F 05/20/19 18:40 Pulse 104 H 05/20/19 18:40 Resp 18 05/20/19 18:40 BP 164/94 05/20/19 18:40 Pulse Ox 98 05/20/19 18:40 Intake & Output 05/19/19 05/20/19 05/20/19 18:59 06:59 18:59 Intake Total 2191 1999 2039 Output Total 400 200 Balance 2192 1600 1840 Weight 101.6 kg Intake: Intake, IV Titration 1175 2000 1500 Amount Potassium Chloride 20 meq 300 In Water For Injection 1 100ml.bag @ 50 mls/hr IVPB Q2H [facility] Rx#: [id number] Sodium Chloride 0.9% 1, 875 1999 1500 000 ml @ 125 mls/hr IV . Q8H LAST Rx#:[id number] Oral 720 540 Blood Product 297 0 Platelet Irr Pheresis 2 297 Acda Unit [id number] Platelet Irr Pheresis 0 Acda Unit [id number] Output: Urine 400 200 Other: Voiding Method Bedside Commode Bedside Commode Bedside Commode # Voids 4 2 3 # Bowel Movements 2 1 - Labs CBC & Chem 7: 05/20/19 10:49 05/20/19 10:49 Labs: Abnormal Lab Results - Last 24 Hours (Table) 05/19/19 05/20/19 05/20/19 Range/Units 20:04 07:04 10:49 WBC 0.2 L* (3.8-10.6) k/uL RBC 2.30 L (3.80-5.40) m/uL Hgb 7.2 L (11.4-16.0) gm/dL Hct 21.3 L (34.0-46.0) % Plt Count 11 L* D (150-450) k/uL Sodium (137-145) mmol/L Potassium (3.5-5.1) mmol/L Creatinine (0.52-1.04) mg/dL Glucose (74-99) mg/dL POC Glucose (mg/dL) 145 H 171 H (75-99) mg/dL Calcium (8.4-10.2) mg/dL AST (14-36) U/L Total Protein (6.3-8.2) g/dL Albumin (3.5-5.0) g/dL 05/20/19 05/20/19 05/20/19 Range/Units 10:49 11:29 16:56 WBC (3.8-10.6) k/uL RBC (3.80-5.40) m/uL Hgb (11.4-16.0) gm/dL Hct (34.0-46.0) % Plt Count (150-450) k/uL Sodium 136 L (137-145) mmol/L Potassium 3.4 L (3.5-5.1) mmol/L Creatinine 0.32 L (0.52-1.04) mg/dL Glucose 182 H (74-99) mg/dL POC Glucose (mg/dL) 195 H 146 H (75-99) mg/dL Calcium 7.3 L (8.4-10.2) mg/dL AST 8 L (14-36) U/L Total Protein 5.2 L (6.3-8.2) g/dL Albumin 2.4 L (3.5-5.0) g/dL Microbiology - Last 24 Hours (Table) 05/15/19 02:30 Stool Culture - Final Stool 05/15/19 21:53 Blood Culture - Preliminary Blood No Growth after 96 hours 05/15/19 19:48 Blood Culture - Preliminary Blood No Growth after 96 hours Assessment and Plan Plan: The patient was seen and examined by me and discussed with nurse practitioner Tawanna, Agree with the assessment and plan formulated. Patient is much better, pain is resolved, and wants to go home however her platelets are still low repeat blood draw shows platelets of 11, we will order one unit of platelets and possible discharge tomorrow after repeat blood draw. Discussed with the nurse as well. Nick Jeronimo M.D.
[2019-05-20 11:29] LABS: HCT 21.3 % (34.0-46.0); HGB 7.2 gm/dL (11.4-16.0); MCH 31.2 pg (25.0-35.0); MCHC 33.6 g/dL (31.0-37.0); MCV 92.7 fL (80.0-100.0); Mean Platelet Volume 8.4; RDW 15.1 % (11.5-15.5)
[2019-05-20 11:30] LABS: Glucose,Whole Blood 195 mg/dL (75-99)
[2019-05-20 11:46] LABS: ALT 19 U/L (9-52); AST 8 U/L (14-36); African American GFR (CKD) >90 (>60 ml/min/1.73 sqM); Albumin 2.4 g/dL (3.5-5.0); Alkaline Phosphatase 85 U/L (38-126); Anion Gap 9 mmol/L; Blood Urea Nitrogen 10 mg/dL (7-17); Calcium 7.3 mg/dL (8.4-10.2); Carbon Dioxide 26 mmol/L (22-30); Chloride 101 mmol/L (98-107); Glucose 182 mg/dL (74-99); Potassium 3.4 mmol/L (3.5-5.1); Sodium 136 mmol/L (137-145); Total Bilirubin 1.3 mg/dL (0.2-1.3); Total Protein 5.2 g/dL (6.3-8.2)
[2019-05-20 12:01] LABS: WBC 0.2 k/uL (3.8-10.6)
[2019-05-20] MEDS: POTASSIUM CHLORIDE ER 20 MEQ TAB.ER PO SCH ×3 (12:06→15:52)
[2019-05-20] MEDS: LEVOFLOXACIN 500 MG TAB PO SCH (12:06)
--- NOTE | 2019-05-20 12:43 | P.PN ---
Subjective Progress Note Date: 05/20/19 This is a 64-year-old patient of Dr. miller. Patient presents for inpatient chemotherapy admitted to oncology services. Patient was recently admitted on 04/10/2019 for multiple joint swelling along with abnormal CBC with increased blastocyte. Patient underwent but bone marrow aspiration biopsy on 04/13/2019. Per oncology service is findings consistent with acute myeloid leukemia. Additional medical history includes diabetes mellitus, hyperlipidemia and hypertension. Patient had PICC line placed to receive chemotherapy. Patient planning first round of chemotherapy today patient will require hospitalization for 7 days. This time patient denies any chest pain or shortness breath. Patient denies nausea vomiting or diarrhea. Patient denies any urinary burning or frequency. She does reports she still having chronic pain due to multiple joint swelling. 2-D echo completed showing EF of 60-65%. On 05/08/2019 patient underwent prescribed chemotherapy yesterday. Patient reports that she is feeling well. Small amount of nausea. Patient reports improvement with her joint discomfort. Patient denies any chest pain or shortness of breath patient denies nausea vomiting or diarrhea. Patient denies any urinary burning or frequency. On 05/09/2019 patient is alert and oriented 3. Patient reports a small amount of nausea but states overall she is feeling well. Patient did receive 1 unit of PRBCs for hemoglobin 6. 9. Repeat hemoglobin 7.9. At this time patient denies chest pain or shortness breath. Patient denies nausea vomiting diarrhea. Patient denies any urinary burning or frequency. On 05/10/2019 patient's alert and oriented 3 patient is still having some nausea and feels overall well. Patient reports improvement with her joint discomfort hemoglobin 7.1. Patient denies any sores in mouth. Patient denies any rashes or open lesions. Patient denies nausea vomiting or diarrhea. UA was negative On 05/11/2019 patient's alert and oriented 3. Patient complains of some nausea but is controlled with medication and blas angel. Patient has been tolerating chemo. Plan for discharge on Tuesday. Patient denies any chest pain or shortness breath. Patient denies nausea vomiting or diarrhea. Patient denies any urinary burning or frequency. On 05/12/2019 patient was seen and examined on the oncology floor she is alert and oriented 3 in no apparent distress very pleasant complaining of nausea otherwise she denies any complaints there is no fever or chills no headache or dizziness no chest pain no shortness of breath no cough no nausea or vomiting no abdominal pain no diarrhea and no urinary symptoms On 05/13/2018 patient remains alert and oriented 3. Patient complaining some nausea and sleepiness but denies any other acute symptoms. Patient denies chest pain or shortness breath. Patient denies any urinary burning or frequency. Hemoglobin stable at 7.6 On 05/14/2019 patient's alert and oriented 3. Patient to receive a dose of chemotherapy today. Hemoglobin 7.4. Patient is having loose stools C. diff sample ordered per oncology. Patient complains of nausea. Patient denies any chest pain or shortness of breath. Patient denies any urinary burning or frequency On 05/15/2019 patient's alert and oriented 3. Planning possible discharge today per oncology services. Patient has received 7 rounds chemotherapy. Patient still complaining of intermittent nausea. C. diff was negative. Patient denies any chest pain or shortness of breath. Patient denies any urinary burning or frequency On 05/16/2019 patient's alert and oriented 3. Yesterday afternoon and evening patient started to have low-grade temps along with elevated heart rate. Chest x-ray completed showing no acute pulmonary process. Patient started on Levaquin per oncology. Blood and urine cultures ordered. EKG ordered a she is on cardiac telemetry monitoring. Magnesium low at 1.4 replace per protocol. Patient did receive platelets yesterday platelets remain low at 14 will receive additional unit of platelets today per oncology. At this time patient denies any specific complaints. Patient denies any cough or shortness of breath. Patient denies any abdominal pain or emesis. Patient is nauseated. Patient denies urinary burning or frequency. On 05/17/2019 patient's alert and oriented 3. Patient reports that she feels improved from yesterday. Patient to get another unit of blood and platelets today per oncology. Heart rate has improved. Patient denies any chest pain or shortness of breath. Patient denies nausea vomiting or diarrhea. Patient denies any urinary burning or frequency. On 05/18/2019 patient's alert and oriented 3. Patient reports she feels improvement. Platelets 18, wBC 0.2 and hemoglobin 7.1. Awaiting oncology plan. At this time patient denies any chest pain or shortness of breath. Patient denies nausea vomiting or diarrhea. Patient denies any urinary burning or frequency On 05/19/2019 patient was seen and examined on the medical floor she is alert and oriented 3 in no apparent distress, white blood count remains at 0.2 hemoglobin 7.2 and platelet count 24 potassium is low at 3.2 Clinically patient is doing well she is alert and oriented she denies any complaints there is no fever or chills no headache or dizziness no chest pain no shortness of breath no cough no nausea or vomiting no abdominal pain no diarrhea and no urinary symptoms On 05/20/2019 patient is doing well she is complaining of nausea and very poor appetite otherwise she denies any complaints there is no fever or chills no h eadache or dizziness no chest pain no shortness of breath no cough no nausea or vomiting no abdominal pain no diarrhea no burning with urination no frequency or urgency no hematuria Objective - Vital Signs Vital signs: Vital Signs Temp 98.6 F 05/20/19 12:07 Pulse 96 05/20/19 12:07 Resp 20 05/20/19 12:07 BP 161/91 05/20/19 12:07 Pulse Ox 94 L 05/20/19 12:07 Intake & Output 05/19/19 05/20/19 05/20/19 18:59 06:59 18:59 Intake Total 2192 2000 Output Total 400 Balance 2192 1600 Weight 101.6 kg Intake: Intake, IV Titration 1175 2000 Amount Potassium Chloride 20 meq 300 In Water For Injection 1 100ml.bag @ 50 mls/hr IVPB Q2H LAST Rx#: [id number] Sodium Chloride 0.9% 1, 875 2000 000 ml @ 125 mls/hr IV . Q8H LAST Rx#:[id number] Oral 720 Blood Product 297 Platelet Irr Pheresis 2 297 Acda Unit [id number] Output: Urine 400 Other: Voiding Method Bedside Commode Bedside Commode # Voids 4 2 1 # Bowel Movements 2 1 - Exam In general patient is alert and oriented 3 in no apparent distress Head normocephalic and atraumatic Neck supple no JVD no goiter Lungs clear to auscultation bilaterally no wheezing or crackles Heart regular rate and rhythm S1-S2, no rub or gallop Abdomen is soft nontender nondistended positive bowel sounds no hepatosplenomegaly Extremities no edema. Bilateral leg boots in place Neuro alert and orientated to 3 - Labs CBC & Chem 7: 05/20/19 10:49 05/20/19 10:49 Labs: Abnormal Lab Results - Last 24 Hours (Table) 05/19/19 05/19/19 05/19/19 Range/Units 07:00 17:13 17:24 WBC 0.2 L* (3.8-10.6) k/uL RBC 2.27 L (3.80-5.40) m/uL Hgb 7.2 L (11.4-16.0) gm/dL Hct 21.5 L (34.0-46.0) % Plt Count 4 L* D 24 L D (150-450) k/uL Sodium (137-145) mmol/L Potassium (3.5-5.1) mmol/L Creatinine (0.52-1.04) mg/dL Glucose (74-99) mg/dL POC Glucose (mg/dL) 166 H (75-99) mg/dL Calcium (8.4-10.2) mg/dL AST (14-36) U/L Total Protein (6.3-8.2) g/dL Albumin (3.5-5.0) g/dL 05/19/19 05/19/19 05/20/19 Range/Units 17:24 20:04 07:04 WBC (3.8-10.6) k/uL RBC (3.80-5.40) m/uL Hgb (11.4-16.0) gm/dL Hct (34.0-46.0) % Plt Count (150-450) k/uL Sodium 135 L (137-145) mmol/L Potassium 3.2 L (3.5-5.1) mmol/L Creatinine 0.37 L (0.52-1.04) mg/dL Glucose 159 H (74-99) mg/dL POC Glucose (mg/dL) 145 H 171 H (75-99) mg/dL Calcium 7.2 L (8.4-10.2) mg/dL AST (14-36) U/L Total Protein (6.3-8.2) g/dL Albumin (3.5-5.0) g/dL 05/20/19 05/20/19 05/20/19 Range/Units 10:49 10:49 11:29 WBC 0.2 L* (3.8-10.6) k/uL RBC 2.30 L (3.80-5.40) m/uL Hgb 7.2 L (11.4-16.0) gm/dL Hct 21.3 L (34.0-46.0) % Plt Count (150-450) k/uL Sodium 136 L (137-145) mmol/L Potassium 3.4 L (3.5-5.1) mmol/L Creatinine 0.32 L (0.52-1.04) mg/dL Glucose 182 H (74-99) mg/dL POC Glucose (mg/dL) 195 H (75-99) mg/dL Calcium 7.3 L (8.4-10.2) mg/dL AST 8 L (14-36) U/L Total Protein 5.2 L (6.3-8.2) g/dL Albumin 2.4 L (3.5-5.0) g/dL Microbiology - Last 24 Hours (Table) 05/15/19 02:30 Stool Culture - Final Stool 05/15/19 21:53 Blood Culture - Preliminary Blood No Growth after 96 hours 05/15/19 19:48 Blood Culture - Preliminary Blood No Growth after 96 hours Assessment and Plan Plan: 1. Acute myelomonocytic leukemia. Patient remained for inpatient chemotherapy. Patient admitted to oncology services. Induction chemo 7+3 regimen completed 2. Multiple joint pain due to acute myeloid leukemia. Home meds resumed. Joint pain improving with chemotherapy 3. History of essential hypertension 4. Diabetes mellitus. Metformin reordered sliding scale insulin ordered 5. History of hyperlipidemia 6. 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 Hemoglobin 6.7. Patient received 3 unit of PRBCs. hgb 6.5. Patient received additional dose of 1 unit PRBCs 7. Pancytopenia. Due to underlining chemotherapy. Oncology service is following. Per oncology no intervention for low WBC. Continue antibiotics antiviral antifungals. 8. Diarrhea. C. diff negative. Per oncology services likely chemo related 9. Low-grade temps. Chest x-ray showing no acute pulmonary process. Blood and urine cultures ordered. Patient started on Levaquin per oncology services 10. Tachycardia. Patient currently on cardiac telemetry monitoring. EKG has been ordered. Magnesium level 1.4 will replace. Resolved 11. Positive stool for occult blood. Patient having low platelets due to chem otherapy patient to receive platelets today per oncology will continue monitor hemoglobin and transfuse for less than 7 or patient is symptomatic per oncology 12. Chemo-induced anorexia. Marinol has been started per oncology
[2019-05-20 13:01] LABS: Platelet Count 11 k/uL (150-450)
[2019-05-20 16:57] LABS: Glucose,Whole Blood 146 mg/dL (75-99)
[2019-05-20 20:27] LABS: Glucose,Whole Blood 189 mg/dL (75-99)
[2019-05-21] MEDS: SODIUM CHLORIDE 0.9% 1,000 ML IV SCH ×2 (00:12→10:14)
[2019-05-21] MEDS: Acetaminophen-Codeine 300-30mg TAB PO PRN ×2 (00:18→06:01)
[2019-05-21 07:06] LABS: Glucose,Whole Blood 167 mg/dL (75-99)
[2019-05-21 09:50] LABS: ALT 21 U/L (9-52); AST 8 U/L (14-36); African American GFR (CKD) >90 (>60 ml/min/1.73 sqM); Albumin 2.5 g/dL (3.5-5.0); Alkaline Phosphatase 80 U/L (38-126); Anion Gap 6 mmol/L; Blood Urea Nitrogen 9 mg/dL (7-17); Calcium 7.2 mg/dL (8.4-10.2); Carbon Dioxide 31 mmol/L (22-30); Chloride 99 mmol/L (98-107); Glucose 150 mg/dL (74-99); Potassium 3.1 mmol/L (3.5-5.1); Sodium 136 mmol/L (137-145); Total Bilirubin 1.3 mg/dL (0.2-1.3); Total Protein 5.2 g/dL (6.3-8.2)
[2019-05-21] MEDS: metFORMIN 500 MG TAB PO SCH ×2 (10:12→20:59)
[2019-05-21] MEDS: ALLOPURINOL 300 MG TAB PO SCH (10:12)
[2019-05-21] MEDS: CITALOPRAM HYDROBROMIDE 20 MG TAB PO SCH (10:12)
[2019-05-21] MEDS: SENNOSIDES-DOCUSATE SODIUM 1 EACH TAB PO SCH ×2 (10:12→20:59)
[2019-05-21] MEDS: INSULIN ASPART (NovoLOG) 100 UNIT/ML VIAL SQ SCH ×4 (10:13→20:58)
[2019-05-21] MEDS: ACYCLOVIR 200 MG CAP PO SCH ×2 (10:13→20:59)
[2019-05-21] MEDS: SALT AND SODA MOUTHWASH 1,000 ML PO SCH ×4 (10:14→21:01)
[2019-05-21 10:15] LABS: MCH 31.3 pg (25.0-35.0); MCHC 33.5 g/dL (31.0-37.0); MCV 93.4 fL (80.0-100.0); Mean Platelet Volume 8.2; RBC 2.09 m/uL (3.80-5.40); RDW 15.5 % (11.5-15.5)
[2019-05-21] MEDS: DRONABINOL 2.5 MG CAP PO SCH ×3 (10:15→17:56)
[2019-05-21] MEDS: CHOLECALCIFEROL 400 UNIT TAB PO SCH (10:15)
[2019-05-21] MEDS: LISINOPRIL-HCTZ 10-12.5 MG 1 EACH TAB PO SCH (10:16)
[2019-05-21] MEDS: CHOLESTYRAMINE (WITH SUGAR) 4 GM PACKET PO SCH ×4 (10:16→21:00)
[2019-05-21] MEDS: NYSTATIN 100,000 UNIT/ML SUSP 500,000 UNIT/5 ML CUP PO SCH ×4 (10:18→20:59)
[2019-05-21] MEDS: PRAVASTATIN SODIUM 20 MG TAB PO SCH (10:18)
[2019-05-21] MEDS: NYSTATIN 100,000 UNIT/GM POWD 15 GM TOPICAL SCH ×2 (10:19→20:59)
[2019-05-21] MEDS: LEVOFLOXACIN 500 MG TAB PO SCH (10:20)
[2019-05-21 10:24] LABS: HCT 19.5 % (34.0-46.0)
[2019-05-21 10:28] LABS: WBC 0.2 k/uL (3.8-10.6)
[2019-05-21 10:29] LABS: HGB 6.5 gm/dL (11.4-16.0); Platelet Count 25 k/uL (150-450)
--- NOTE | 2019-05-21 10:53 | P.PN ---
Subjective Progress Note Date: 05/21/19 This is a 64-year-old patient of Dr. miller. Patient presents for inpatient chemotherapy admitted to oncology services. Patient was recently admitted on 04/10/2019 for multiple joint swelling along with abnormal CBC with increased blastocyte. Patient underwent but bone marrow aspiration biopsy on 04/13/2019. Per oncology service is findings consistent with acute myeloid leukemia. Additional medical history includes diabetes mellitus, hyperlipidemia and hypertension. Patient had PICC line placed to receive chemotherapy. Patient planning first round of chemotherapy today patient will require hospitalization for 7 days. This time patient denies any chest pain or shortness breath. Patient denies nausea vomiting or diarrhea. Patient denies any urinary burning or frequency. She does reports she still having chronic pain due to multiple joint swelling. 2-D echo completed showing EF of 60-65%. On 05/08/2019 patient underwent prescribed chemotherapy yesterday. Patient reports that she is feeling well. Small amount of nausea. Patient reports improvement with her joint discomfort. Patient denies any chest pain or shortness of breath patient denies nausea vomiting or diarrhea. Patient denies any urinary burning or frequency. On 05/09/2019 patient is alert and oriented 3. Patient reports a small amount of nausea but states overall she is feeling well. Patient did receive 1 unit of PRBCs for hemoglobin 6. 9. Repeat hemoglobin 7.9. At this time patient denies chest pain or shortness breath. Patient denies nausea vomiting diarrhea. Patient denies any urinary burning or frequency. On 05/10/2019 patient's alert and oriented 3 patient is still having some nausea and feels overall well. Patient reports improvement with her joint discomfort hemoglobin 7.1. Patient denies any sores in mouth. Patient denies any rashes or open lesions. Patient denies nausea vomiting or diarrhea. UA was negative On 05/11/2019 patient's alert and oriented 3. Patient complains of some nausea but is controlled with medication and blas angel. Patient has been tolerating chemo. Plan for discharge on Tuesday. Patient denies any chest pain or shortness breath. Patient denies nausea vomiting or diarrhea. Patient denies any urinary burning or frequency. On 05/12/2019 patient was seen and examined on the oncology floor she is alert and oriented 3 in no apparent distress very pleasant complaining of nausea otherwise she denies any complaints there is no fever or chills no headache or dizziness no chest pain no shortness of breath no cough no nausea or vomiting no abdominal pain no diarrhea and no urinary symptoms On 05/13/2018 patient remains alert and oriented 3. Patient complaining some nausea and sleepiness but denies any other acute symptoms. Patient denies chest pain or shortness breath. Patient denies any urinary burning or frequency. Hemoglobin stable at 7.6 On 05/14/2019 patient's alert and oriented 3. Patient to receive a dose of chemotherapy today. Hemoglobin 7.4. Patient is having loose stools C. diff sample ordered per oncology. Patient complains of nausea. Patient denies any chest pain or shortness of breath. Patient denies any urinary burning or frequency On 05/15/2019 patient's alert and oriented 3. Planning possible discharge today per oncology services. Patient has received 7 rounds chemotherapy. Patient still complaining of intermittent nausea. C. diff was negative. Patient denies any chest pain or shortness of breath. Patient denies any urinary burning or frequency On 05/16/2019 patient's alert and oriented 3. Yesterday afternoon and evening patient started to have low-grade temps along with elevated heart rate. Chest x-ray completed showing no acute pulmonary process. Patient started on Levaquin per oncology. Blood and urine cultures ordered. EKG ordered a she is on cardiac telemetry monitoring. Magnesium low at 1.4 replace per protocol. Patient did receive platelets yesterday platelets remain low at 14 will receive additional unit of platelets today per oncology. At this time patient denies any specific complaints. Patient denies any cough or shortness of breath. Patient denies any abdominal pain or emesis. Patient is nauseated. Patient denies urinary burning or frequency. On 05/17/2019 patient's alert and oriented 3. Patient reports that she feels improved from yesterday. Patient to get another unit of blood and platelets today per oncology. Heart rate has improved. Patient denies any chest pain or shortness of breath. Patient denies nausea vomiting or diarrhea. Patient denies any urinary burning or frequency. On 05/18/2019 patient's alert and oriented 3. Patient reports she feels improvement. Platelets 18, wBC 0.2 and hemoglobin 7.1. Awaiting oncology plan. At this time patient denies any chest pain or shortness of breath. Patient denies nausea vomiting or diarrhea. Patient denies any urinary burning or frequencyOn 05/19/2019 patient was seen and examined on the medical floor she is alert and oriented 3 in no apparent distress, white blood count remains at 0.2 hemoglobin 7.2 and platelet count 24 potassium is low at 3.2 Clinically patient is doing well she is alert and oriented she denies any complaints there is no fever or chills no headache or dizziness no chest pain no shortness of breath no cough no nausea or vomiting no abdominal pain no diarrhea and no urinary symptoms On 05/20/2019 patient is doing well she is complaining of nausea and very poor appetite otherwise she denies any complaints there is no fever or chills no hea dache or dizziness no chest pain no shortness of breath no cough no nausea or vomiting no abdominal pain no diarrhea no burning with urination no frequency or urgency no hematuria On 05/21/2018 patient alert and oriented 3. Patient reports she has no appetite and nausea. Hemoglobin low at 6.5. WBC 0.2. Oncology service Are following. 1 unit of PRBCs ordered. She denies chest pain or shortness of breath. Patient denies any urinary burning or frequency. Objective - Vital Signs Vital signs: Vital Signs Temp 96.4 F L 05/21/19 05:00 Pulse 107 H 05/21/19 05:00 Resp 22 05/21/19 05:00 BP 144/82 05/21/19 05:00 Pulse Ox 99 05/21/19 05:00 Intake & Output 05/20/19 05/21/19 05/21/19 18:59 06:59 18:59 Intake Total 0 2116 Output Total 200 Balance 1840 2116 Weight 101.6 kg Intake: Intake, IV Titration 1500 1500 Amount Sodium Chloride 0.9% 1, 1500 1500 000 ml @ 125 mls/hr IV . Q8H [facility] Rx#:[id number] Oral 540 Blood Product 0 616 Platelet Irr Pheresis 0 616 Acda Unit [id number] Output: Urine 200 Other: Voiding Method Bedside Commode Bedside Commode # Voids 3 2 # Bowel Movements 1 - Exam Head normocephalic Neck supple Lungs clear to auscultation bilaterally no wheezing or crackles Heart regular rate and rhythm S1-S2, no rub or gallop Abdomen is soft nontender nondistended positive bowel sounds no hepatosplenomegaly Extremities no edema. Bilateral leg boots in place Neuro alert and orientated to 3 - Labs CBC & Chem 7: 05/21/19 08:55 05/21/19 08:55 Labs: Abnormal Lab Results - Last 24 Hours (Table) 05/20/19 05/20/19 05/20/19 Range/Units 10:49 10:49 11:29 WBC 0.2 L* (3.8-10.6) k/uL RBC 2.30 L (3.80-5.40) m/uL Hgb 7.2 L (11.4-16.0) gm/dL Hct 21.3 L (34.0-46.0) % Plt Count 11 L* D (150-450) k/uL Sodium 136 L (137-145) mmol/L Potassium 3.4 L (3.5-5.1) mmol/L Carbon Dioxide (22-30) mmol/L Creatinine 0.32 L (0.52-1.04) mg/dL Glucose 182 H (74-99) mg/dL POC Glucose (mg/dL) 195 H (75-99) mg/dL Calcium 7.3 L (8.4-10.2) mg/dL AST 8 L (14-36) U/L Total Protein 5.2 L (6.3-8.2) g/dL Albumin 2.4 L (3.5-5.0) g/dL 05/20/19 05/20/19 05/21/19 Range/Units 16:56 20:26 07:04 WBC (3.8-10.6) k/uL RBC (3.80-5.40) m/uL Hgb (11.4-16.0) gm/dL Hct (34.0-46.0) % Plt Count (150-450) k/uL Sodium (137-145) mmol/L Potassium (3.5-5.1) mmol/L Carbon Dioxide (22-30) mmol/L Creatinine (0.52-1.04) mg/dL Glucose (74-99) mg/dL POC Glucose (mg/dL) 146 H 189 H 167 H (75-99) mg/dL Calcium (8.4-10.2) mg/dL AST (14-36) U/L Total Protein (6.3-8.2) g/dL Albumin (3.5-5.0) g/dL 05/21/19 05/21/19 Range/Units 08:55 08:55 WBC 0.2 L* (3.8-10.6) k/uL RBC 2.09 L (3.80-5.40) m/uL Hgb 6.5 L* (11.4-16.0) gm/dL Hct 19.5 L* (34.0-46.0) % Plt Count (150-450) k/uL Sodium 136 L (137-145) mmol/L Potassium 3.1 L (3.5-5.1) mmol/L Carbon Dioxide 31 H (22-30) mmol/L Creatinine 0.37 L (0.52-1.04) mg/dL Glucose 150 H (74-99) mg/dL POC Glucose (mg/dL) (75-99) mg/dL Calcium 7.2 L (8.4-10.2) mg/dL AST 8 L (14-36) U/L Total Protein 5.2 L (6.3-8.2) g/dL Albumin 2.5 L (3.5-5.0) g/dL Microbiology - Last 24 Hours (Table) 05/15/19 02:30 Stool Culture - Final Stool 05/15/19 21:53 Blood Culture - Preliminary Blood No Growth after 120 hours 05/15/19 19:48 Blood Culture - Preliminary Blood No Growth after 120 hours Assessment and Plan Assessment: 1. Acute myelomonocytic leukemia. Patient remained for inpatient chemotherapy. Patient admitted to oncology services. Induction chemo 7+3 regimen completed 2. Multiple joint pain due to acute myeloid leukemia. Home meds resumed. Mary nt pain improving with chemotherapy 3. History of essential hypertension 4. Diabetes mellitus. Metformin reordered sliding scale insulin ordered 5. History of hyperlipidemia 6. 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 Hemoglobin 6.7. Patient received 3 unit of PRBCs. hgb 6.5. Patient received additional dose of 1 unit PRBCs 7. Pancytopenia. Due to underlining chemotherapy. Oncology service is follow ing. Per oncology no intervention for low WBC. Continue antibiotics antiviral antifungals. 8. Diarrhea. C. diff negative. Per oncology services likely chemo related 9. Low-grade temps. Chest x-ray showing no acute pulmonary process. Blood and urine cultures ordered. Patient started on Levaquin per oncology services 10. Tachycardia. Patient currently on cardiac telemetry monitoring. EKG has been ordered. Magnesium level 1.4 will replace. Resolved 11. Positive stool for occult blood. Patient having low platelets due to chemotherapy patient to receive platelets today per oncology will continue monitor hemoglobin and transfuse for less than 7 or patient is symptomatic per oncology 12. Chemo-induced anorexia. Marinol has been started per oncology I performed an examination of the patient and discussed their management with the Nurse Practitioner. I have reviewed the Nurse Practitioner's notes and agree with the documented findings and plan of care
--- NOTE | 2019-05-21 10:57 | P.PN ---
Subjective Progress Note Date: 05/21/19 Principal diagnosis: AML Spoke to MM, patient not feeling good today, difficulty eating. Hemoglobin 6.5. Awaiting platelet count. temperature low today. Potassium 3.1 - Supp ordered and added to IV Fluids. Tachycardia. Stool still soft. Refusing questran. Check Mag, Coags, and re-smith culture. Objective - Vital Signs Vital signs: Vital Signs Temp 96.4 F L 05/21/19 05:00 Pulse 107 H 05/21/19 05:00 Resp 22 05/21/19 05:00 BP 144/82 05/21/19 05:00 Pulse Ox 99 05/21/19 05:00 Intake & Output 05/20/19 05/21/19 05/21/19 18:59 06:59 18:59 Intake Total 2039 2115 Output Total 200 Balance 1839 2115 Weight 101.6 kg Intake: Intake, IV Titration 1500 1500 Amount Sodium Chloride 0.9% 1, 1500 1500 000 ml @ 125 mls/hr IV . Q8H [facility] Rx#:[id number] Oral 540 Blood Product 0 616 Platelet Irr Pheresis 0 616 Acda Unit [id number] Output: Urine 200 Other: Voiding Method Bedside Commode Bedside Commode # Voids 3 2 # Bowel Movements 1 - Exam - Constitutional General appearance: Present: average body habitus, cooperative, no acute distress - EENT Eyes: Present: anicteric sclerae, EOMI ENT: Present: hearing grossly normal, normal oropharynx - Respiratory Respiratory: bilateral: CTA - Cardiovascular Rhythm: regular Heart sounds: normal: S1, S2 Abnormal Heart Sounds: Absent: systolic murmur, diastolic murmur, rub, S3 Gallop, S4 Gallop, click, other - Peripheral edema leg Peripheral Edema: bilateral: None - Gastrointestinal General gastrointestinal: Present: normal bowel sounds, soft - Genitourinary Genitourinary Comment(s): Perineal area examination whitish color and odor of yeast, suspicious for yeast infection. - Neurologic Neurologic: Present: CNII-XII intact - Musculoskeletal Musculoskeletal: Present: generalized weakness, strength equal bilaterally - Psychiatric Psychiatric: Present: A&O x's 3, appropriate affect, intact judgment & insight - Labs CBC & Chem 7: 05/21/19 10:49 05/21/19 08:55 Labs: Abnormal Lab Results - Last 24 Hours (Table) 05/20/19 05/20/19 05/20/19 Range/Units 10:49 10:49 11:29 WBC 0.2 L* (3.8-10.6) k/uL RBC 2.30 L (3.80-5.40) m/uL Hgb 7.2 L (11.4-16.0) gm/dL Hct 21.3 L (34.0-46.0) % Plt Count 11 L* D (150-450) k/uL Sodium 136 L (137-145) mmol/L Potassium 3.4 L (3.5-5.1) mmol/L Carbon Dioxide (22-30) mmol/L Creatinine 0.32 L (0.52-1.04) mg/dL Glucose 182 H (74-99) mg/dL POC Glucose (mg/dL) 195 H (75-99) mg/dL Calcium 7.3 L (8.4-10.2) mg/dL AST 8 L (14-36) U/L Total Protein 5.2 L (6.3-8.2) g/dL Albumin 2.4 L (3.5-5.0) g/dL 05/20/19 05/20/19 05/21/19 Range/Units 16:56 20:26 07:04 WBC (3.8-10.6) k/uL RBC (3.80-5.40) m/uL Hgb (11.4-16.0) gm/dL Hct (34.0-46.0) % Plt Count (150-450) k/uL Sodium (137-145) mmol/L Potassium (3.5-5.1) mmol/L Carbon Dioxide (22-30) mmol/L Creatinine (0.52-1.04) mg/dL Glucose (74-99) mg/dL POC Glucose (mg/dL) 146 H 189 H 167 H (75-99) mg/dL Calcium (8.4-10.2) mg/dL AST (14-36) U/L Total Protein (6.3-8.2) g/dL Albumin (3.5-5.0) g/dL 05/21/19 05/21/19 Range/Units 08:55 08:55 WBC 0.2 L* (3.8-10.6) k/uL RBC 2.09 L (3.80-5.40) m/uL Hgb 6.5 L* (11.4-16.0) gm/dL Hct 19.5 L* (34.0-46.0) % Plt Count (150-450) k/uL Sodium 136 L (137-145) mmol/L Potassium 3.1 L (3.5-5.1) mmol/L Carbon Dioxide 31 H (22-30) mmol/L Creatinine 0.37 L (0.52-1.04) mg/dL Glucose 150 H (74-99) mg/dL POC Glucose (mg/dL) (75-99) mg/dL Calcium 7.2 L (8.4-10.2) mg/dL AST 8 L (14-36) U/L Total Protein 5.2 L (6.3-8.2) g/dL Albumin 2.5 L (3.5-5.0) g/dL Microbiology - Last 24 Hours (Table) 05/15/19 02:30 Stool Culture - Final Stool 05/15/19 21:53 Blood Culture - Preliminary Blood No Growth after 120 hours 05/15/19 19:48 Blood Culture - Preliminary Blood No Growth after 120 hours Assessment and Plan Plan: Pancytopenia due to antineoplastic chemotherapy Hemoglobin is 7.1, no intervention Transfusion for hemoglobin less than 7, be very conservative with transfusions. Platelet count is 18K today, no acute intervention. Transfuse for platelet count of less than 10,000 or if symptomatic. 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 Completed Supportive medications ordered, and sent to Pharmacy Plan for 3x a week blood draw in office next week if discharged today or over w eekend. (3) Polyarthralgia ? if r/t AML. Improved with tylenol #3, pt is now able to ambulate with bilateral leg braces and walker. D/W case wtih PT. Encouraged pt remove leg braces due to skin breakdown concerns and to evaluate pain and strength in the ankles. Encouraged her to follow PT instructions and use their support when doing therapy. Diarrhea - Chemo related. C diff neg. Occult positive, hematochezia noted. - Hgb stable today, when taken into account last transfusion as well as chemo effects. - Platelets ordered for today until stool is at least grossly negative for blood. 1 dose of DDAVP given 05/17 - Cont CBC daily. - Antidiarrheals ordered. - Add Questran Lisa infection of genital region Hypokalemia: - K = 3.1 - Supp ordered - Add to IVVF Neutropenic Colitis - Bowel Rest - Topical antifungal prescribed. - Nystatin swish and swallow prophylaxic prescribed as well, QT prolon with diflucan, if further infectious fungal presents benefit of systemic antifungal out weighs risk Anorexia, Decreased PO Appetite: - Secondary to Lisa oral and AML - Marinol is on board - Unable to increase PO intable untol colitis improved Plan: Antiviral, antifungal, antibacterial prescriptions all sent to patient's [facility] in [place]. Antibiotics Compazine prescription also sent. If patient is well enough and completes therapy on time she has a CBC follow-up appt on Tuesday at 9:15 AM, she will make further appointments at that time. - Encourage patient up and out of bed - In chair all meals - CLose monitoring of stool and diarrhea and monitor for blood - Recheck Lytes and CBC in am - No DC today - Re-smith Culture, Check COags, Transfuse one unit irradiated Prbc today - Check stool culture, o and p - encourage ne
[2019-05-21 11:22] LABS: Mean Platelet Volume 8.1
[2019-05-21 11:30] LABS: Platelet Count 28 k/uL (150-450)
[2019-05-21 11:32] LABS: INR 1.3 (<1.2); Prothrombin Time 12.9 sec (9.0-12.0)
--- NOTE | 2019-05-21 11:53 | XR ---
EXAMINATION TYPE: XR chest 2V DATE OF EXAM: 05/21/2019 COMPARISON: 05/15/2019 HISTORY: 64 year-old female shortness of breath TECHNIQUE: Frontal and lateral views FINDINGS: Low lung volumes and crowded vascular markings. Right PICC tip at the cavoatrial junction. Heart uppe r limits of normal in size. Mild patchy posterior basilar opacity on the lateral view. Visualized upp er and mid lungs are clear. No pleural effusion. IMPRESSION: Hypoventilatory changes. Mild patchy posterior basilar opacity could represent atelectasis or early i nfiltrate. The former is favored.
[2019-05-21 12:00] LABS: Glucose,Whole Blood 228 mg/dL (75-99)
[2019-05-21] MEDS: METOPROLOL TARTRATE 25 MG TAB PO SCH ×2 (13:23→20:59)
[2019-05-21] MEDS: POTASSIUM CHLORIDE ER 20 MEQ TAB.ER PO SCH ×3 (13:23→17:56)
[2019-05-21] MEDS: 0.9% NACL WITH KCL 40 MEQ/L 1,000 ML IV SCH ×2 (13:25→20:58)
[2019-05-21] MEDS: FLUCONAZOLE 100 MG TAB PO SCH (13:25)
[2019-05-21 16:51] LABS: Glucose,Whole Blood 164 mg/dL (75-99)
[2019-05-21 20:27] LABS: Appearance,Urine Clear (Clear); Bilirubin,Urine Negative (Negative); Blood,Urine Trace (Negative); Color,Urine Yellow; Glucose,Urine (UA) Negative (Negative); Hyaline Casts,Urine 1 /lpf (0-2); Ketones,Urine Negative (Negative); Leukocyte Esterase,Urine Negative (Negative); Mucus,Urine Rare /hpf; Nitrite,Urine Negative (Negative); PH, Urine 7.5 (5.0-8.0); Protein,Urine Trace (Negative); RBC,Urine 6 /hpf (0-5); Specific Gravity,Urine 1.014 (1.001-1.035); Squamous Epithelial Cell,Urine 1 /hpf (0-4)
[2019-05-21 20:50] LABS: Glucose,Whole Blood 174 mg/dL (75-99)
[2019-05-22 07:11] LABS: Glucose,Whole Blood 172 mg/dL (75-99)
[2019-05-22] MEDS: SALT AND SODA MOUTHWASH 1,000 ML PO SCH ×4 (07:53→21:06)
[2019-05-22] MEDS: 0.9% NACL WITH KCL 40 MEQ/L 1,000 ML IV SCH ×2 (07:53→17:35)
[2019-05-22] MEDS: CHOLESTYRAMINE (WITH SUGAR) 4 GM PACKET PO SCH ×4 (07:55→22:08)
[2019-05-22] MEDS: FLUCONAZOLE 100 MG TAB PO SCH (07:59)
[2019-05-22] MEDS: ALLOPURINOL 300 MG TAB PO SCH (07:59)
[2019-05-22] MEDS: metFORMIN 500 MG TAB PO SCH ×2 (07:59→21:06)
[2019-05-22] MEDS: ACYCLOVIR 200 MG CAP PO SCH ×2 (07:59→21:05)
[2019-05-22] MEDS: METOPROLOL TARTRATE 25 MG TAB PO SCH ×2 (08:00→21:06)
[2019-05-22] MEDS: CITALOPRAM HYDROBROMIDE 20 MG TAB PO SCH (08:00)
[2019-05-22] MEDS: DRONABINOL 2.5 MG CAP PO SCH ×2 (08:00→17:35)
[2019-05-22] MEDS: INSULIN ASPART (NovoLOG) 100 UNIT/ML VIAL SQ SCH ×4 (08:00→21:06)
[2019-05-22] MEDS: PRAVASTATIN SODIUM 20 MG TAB PO SCH (08:01)
[2019-05-22] MEDS: CHOLECALCIFEROL 400 UNIT TAB PO SCH (08:01)
[2019-05-22] MEDS: LISINOPRIL-HCTZ 10-12.5 MG 1 EACH TAB PO SCH (08:01)
[2019-05-22] MEDS: NYSTATIN 100,000 UNIT/ML SUSP 500,000 UNIT/5 ML CUP PO SCH ×4 (08:01→21:07)
[2019-05-22] MEDS: SENNOSIDES-DOCUSATE SODIUM 1 EACH TAB PO SCH (08:02)
[2019-05-22] MEDS: NYSTATIN 100,000 UNIT/GM POWD 15 GM TOPICAL SCH ×2 (08:06→21:07)
[2019-05-22] MEDS: Acetaminophen-Codeine 300-30mg TAB PO PRN (08:14)
[2019-05-22 09:36] LABS: HCT 27.5 % (34.0-46.0); MCH 31.2 pg (25.0-35.0); MCHC 33.3 g/dL (31.0-37.0); MCV 93.5 fL (80.0-100.0); Mean Platelet Volume 9.6; RBC 2.95 m/uL (3.80-5.40); RDW 15.1 % (11.5-15.5)
[2019-05-22 09:38] LABS: ALT 18 U/L (9-52); AST 13 U/L (14-36); African American GFR (CKD) >90 (>60 ml/min/1.73 sqM); Albumin 2.7 g/dL (3.5-5.0); Alkaline Phosphatase 87 U/L (38-126); Anion Gap 10 mmol/L; Blood Urea Nitrogen 10 mg/dL (7-17); Calcium 7.7 mg/dL (8.4-10.2); Carbon Dioxide 24 mmol/L (22-30); Chloride 102 mmol/L (98-107); Glucose 204 mg/dL (74-99); Magnesium 1.6 mg/dL (1.6-2.3); Potassium 3.7 mmol/L (3.5-5.1); Sodium 136 mmol/L (137-145); Total Bilirubin 2.3 mg/dL (0.2-1.3); Total Protein 5.7 g/dL (6.3-8.2)
[2019-05-22 09:58] LABS: WBC 0.3 k/uL (3.8-10.6)
[2019-05-22 10:03] LABS: HGB 9.2 gm/dL (11.4-16.0); Platelet Count 8 k/uL (150-450)
--- NOTE | 2019-05-22 10:47 | P.PN ---
Subjective Progress Note Date: 05/22/19 Principal diagnosis: AML Platelets 8 today trransfuse Objective - Vital Signs Vital signs: Vital Signs Temp 98.2 F 05/22/19 04:49 Pulse 109 H 05/22/19 04:49 Resp 18 05/22/19 04:49 BP 154/94 05/22/19 04:49 Pulse Ox 95 05/22/19 04:49 Intake & Output 05/21/19 05/22/19 05/22/19 18:59 06:59 18:59 Intake Total 560 1435 Output Total 200 Balance 360 1435 Weight 100.7 kg Intake: Intake, IV Titration 1125 Amount 0.9% NaCl with KCl 40 Meq 1125 /l 1,000 ml @ 125 mls/hr IV .Q8H [facility] Rx#:[id number] Oral 560 Blood Product 310 Rc Irr As1 Unit 310 [id number] Output: Urine 200 Other: Voiding Method Bedside Commode Bedside Commode # Voids 2 3 # Bowel Movements 1 3 - Exam - Constitutional General appearance: Present: average body habitus, cooperative, no acute distress - EENT Eyes: Present: anicteric sclerae, EOMI ENT: Present: hearing grossly normal, normal oropharynx - Respiratory Respiratory: bilateral: CTA - Cardiovascular Rhythm: regular Heart sounds: normal: S1, S2 Abnormal Heart Sounds: Absent: systolic murmur, diastolic murmur, rub, S3 Gallop, S4 Gallop, click, other - Peripheral edema leg Peripheral Edema: bilateral: None - Gastrointestinal General gastrointestinal: Present: normal bowel sounds, soft - Genitourinary Genitourinary Comment(s): Perineal area examination whitish color and odor of yeast, suspicious for yeast infection. - Neurologic Neurologic: Present: CNII-XII intact - Musculoskeletal Musculoskeletal: Present: generalized weakness, strength equal bilaterally - Psychiatric Psychiatric: Present: A&O x's 3, appropriate affect, intact judgment & insight - Labs CBC & Chem 7: 05/22/19 09:03 05/22/19 09:03 Labs: Abnormal Lab Results - Last 24 Hours (Table) 05/21/19 05/21/19 05/21/19 Range/Units 08:55 10:49 10:49 WBC (3.8-10.6) k/uL RBC (3.80-5.40) m/uL Hgb (11.4-16.0) gm/dL Hct (34.0-46.0) % Plt Count 25 L D 28 L (150-450) k/uL PT (9.0-12.0) sec INR (<1.2) Sodium (137-145) mmol/L Creatinine (0.52-1.04) mg/dL Glucose (74-99) mg/dL POC Glucose (mg/dL) (75-99) mg/dL Calcium (8.4-10.2) mg/dL Total Bilirubin (0.2-1.3) mg/dL AST (14-36) U/L Total Protein (6.3-8.2) g/dL Albumin (3.5-5.0) g/dL Urine Protein (Negative) Urine Blood (Negative) Urine RBC (0-5) /hpf Urine Mucus (None) /hpf Crossmatch See Detail 05/21/19 05/21/19 05/21/19 Range/Units 11:08 11:48 16:50 WBC (3.8-10.6) k/uL RBC (3.80-5.40) m/uL Hgb (11.4-16.0) gm/dL Hct (34.0-46.0) % Plt Count (150-450) k/uL PT 12.9 H (9.0-12.0) sec INR 1.3 H (<1.2) Sodium (137-145) mmol/L Creatinine (0.52-1.04) mg/dL Glucose (74-99) mg/dL POC Glucose (mg/dL) 228 H 164 H (75-99) mg/dL Calcium (8.4-10.2) mg/dL Total Bilirubin (0.2-1.3) mg/dL AST (14-36) U/L Total Protein (6.3-8.2) g/dL Albumin (3.5-5.0) g/dL Urine Protein (Negative) Urine Blood (Negative) Urine RBC (0-5) /hpf Urine Mucus (None) /hpf Crossmatch 05/21/19 05/21/19 05/22/19 Range/Units 20:10 20:48 07:07 WBC (3.8-10.6) k/uL RBC (3.80-5.40) m/uL Hgb (11.4-16.0) gm/dL Hct (34.0-46.0) % Plt Count (150-450) k/uL PT (9.0-12.0) sec INR (<1.2) Sodium (137-145) mmol/L Creatinine (0.52-1.04) mg/dL Glucose (74-99) mg/dL POC Glucose (mg/dL) 174 H 172 H (75-99) mg/dL Calcium (8.4-10.2) mg/dL Total Bilirubin (0.2-1.3) mg/dL AST (14-36) U/L Total Protein (6.3-8.2) g/dL Albumin (3.5-5.0) g/dL Urine Protein Trace H (Negative) Urine Blood Trace H (Negative) Urine RBC 6 H (0-5) /hpf Urine Mucus Rare H (None) /hpf Crossmatch 05/22/19 05/22/19 Range/Units 09:03 09:03 WBC 0.3 L* (3.8-10.6) k/uL RBC 2.95 L (3.80-5.40) m/uL Hgb 9.2 L D (11.4-16.0) gm/dL Hct 27.5 L (34.0-46.0) % Plt Count 8 L* D (150-450) k/uL PT (9.0-12.0) sec INR (<1.2) Sodium 136 L (137-145) mmol/L Creatinine 0.35 L (0.52-1.04) mg/dL Glucose 204 H (74-99) mg/dL POC Glucose (mg/dL) (75-99) mg/dL Calcium 7.7 L (8.4-10.2) mg/dL Total Bilirubin 2.3 H (0.2-1.3) mg/dL AST 13 L (14-36) U/L Total Protein 5.7 L (6.3-8.2) g/dL Albumin 2.7 L (3.5-5.0) g/dL Urine Protein (Negative) Urine Blood (Negative) Urine RBC (0-5) /hpf Urine Mucus (None) /hpf Crossmatch Microbiology - Last 24 Hours (Table) 05/21/19 21:30 Stool Culture - Preliminary Stool 05/15/19 21:53 Blood Culture - Final Blood No Growth after 144 hours 05/15/19 19:48 Blood Culture - Final Blood No Growth after 144 hours 05/15/19 02:30 Stool Culture - Final Stool Assessment and Plan Plan: Pancytopenia due to antineoplastic chemotherapy Transfusion for hemoglobin less than 7, be very conservative with transfusions. Transfuse for platelet count of less than 10,000 or if symptomatic. 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 Completed Supportive medications ordered, and sent to Pharmacy Plan for 3x a week blood draw in office next week if discharged today or over weekend. Polyarthralgia - Improved ? if r/t AML. Improved with tylenol #3, pt is now able to ambulate with bilateral leg braces and walker. D/W case wtih PT. Encouraged pt remove leg braces due to skin breakdown concerns and to evaluate pain and strength in the ankles. Encouraged her to follow PT instructions and use their support when doing therapy. Diarrhea - Chemo related. C diff neg. Occult positive, hematochezia noted. - Hgb stable today, when taken into account last transfusion as well as chemo effects. - Platelets ordered for today until stool is at least grossly negative for blood. 1 dose of DDAVP given 05/17 - Cont CBC daily. - Antidiarrheals ordered. - Add Questran Lisa infection of genital region Hypokalemia: - improved continue IV Fluids Neutropenic Colitis - Bowel Rest - Topical antifungal prescribed. - Nystatin swish and swallow prophylaxic prescribed as well, QT prolon with diflucan, if further infectious fungal presents benefit of systemic antifungal out weighs risk Anorexia, Decreased PO Appetite: - Secondary to Lisa oral and AML - Marinol is on board - Unable to increase PO intable untol colitis improved Plan: Antiviral, antifungal, antibacterial prescriptions all sent to patient's [facility] in [place]. Antibiotics Compazine prescription also sent. If patient is well enough and completes therapy on time she has a CBC follow-up appt on Tuesday at 9:15 AM, she will make further appointments at that time. - Encourage patient up and out of bed - In chair all meals - encourage questran Transfuse one irradaited Platlets today
--- NOTE | 2019-05-22 11:04 | P.PN ---
Subjective Progress Note Date: 05/22/19 This is a 64-year-old patient of Dr. miller. Patient presents for inpatient chemotherapy admitted to oncology services. Patient was recently admitted on 04/10/2019 for multiple joint swelling along with abnormal CBC with increased blastocyte. Patient underwent but bone marrow aspiration biopsy on 04/13/2019. Per oncology service is findings consistent with acute myeloid leukemia. Additional medical history includes diabetes mellitus, hyperlipidemia and hypertension. Patient had PICC line placed to receive chemotherapy. Patient planning first round of chemotherapy today patient will require hospitalization for 7 days. This time patient denies any chest pain or shortness breath. Patient denies nausea vomiting or diarrhea. Patient denies any urinary burning or frequency. She does reports she still having chronic pain due to multiple joint swelling. 2-D echo completed showing EF of 60-65%. On 05/08/2019 patient underwent prescribed chemotherapy yesterday. Patient reports that she is feeling well. Small amount of nausea. Patient reports improvement with her joint discomfort. Patient denies any chest pain or shortness of breath patient denies nausea vomiting or diarrhea. Patient denies any urinary burning or frequency. On 05/09/2019 patient is alert and oriented 3. Patient reports a small amount of nausea but states overall she is feeling well. Patient did receive 1 unit of PRBCs for hemoglobin 6. 9. Repeat hemoglobin 7.9. At this time patient denies chest pain or shortness breath. Patient denies nausea vomiting diarrhea. Patient denies any urinary burning or frequency. On 05/10/2019 patient's alert and oriented 3 patient is still having some nausea and feels overall well. Patient reports improvement with her joint discomfort hemoglobin 7.1. Patient denies any sores in mouth. Patient denies any rashes or open lesions. Patient denies nausea vomiting or diarrhea. UA was negative On 05/11/2019 patient's alert and oriented 3. Patient complains of some nausea but is controlled with medication and blas angel. Patient has been tolerating chemo. Plan for discharge on Tuesday. Patient denies any chest pain or shortness breath. Patient denies nausea vomiting or diarrhea. Patient denies any urinary burning or frequency. On 05/12/2019 patient was seen and examined on the oncology floor she is alert and oriented 3 in no apparent distress very pleasant complaining of nausea otherwise she denies any complaints there is no fever or chills no headache or dizziness no chest pain no shortness of breath no cough no nausea or vomiting no abdominal pain no diarrhea and no urinary symptoms On 05/13/2018 patient remains alert and oriented 3. Patient complaining some nausea and sleepiness but denies any other acute symptoms. Patient denies chest pain or shortness breath. Patient denies any urinary burning or frequency. Hemoglobin stable at 7.6 On 05/14/2019 patient's alert and oriented 3. Patient to receive a dose of chemotherapy today. Hemoglobin 7.4. Patient is having loose stools C. diff sample ordered per oncology. Patient complains of nausea. Patient denies any chest pain or shortness of breath. Patient denies any urinary burning or frequency On 05/15/2019 patient's alert and oriented 3. Planning possible discharge today per oncology services. Patient has received 7 rounds chemotherapy. Patient still complaining of intermittent nausea. C. diff was negative. Patient denies any chest pain or shortness of breath. Patient denies any urinary burning or frequency On 05/16/2019 patient's alert and oriented 3. Yesterday afternoon and evening patient started to have low-grade temps along with elevated heart rate. Chest x-ray completed showing no acute pulmonary process. Patient started on Levaquin per oncology. Blood and urine cultures ordered. EKG ordered a she is on cardiac telemetry monitoring. Magnesium low at 1.4 replace per protocol. Patient did receive platelets yesterday platelets remain low at 14 will receive additional unit of platelets today per oncology. At this time patient denies any specific complaints. Patient denies any cough or shortness of breath. Patient denies any abdominal pain or emesis. Patient is nauseated. Patient denies urinary burning or frequency. On 05/17/2019 patient's alert and oriented 3. Patient reports that she feels improved from yesterday. Patient to get another unit of blood and platelets today per oncology. Heart rate has improved. Patient denies any chest pain or shortness of breath. Patient denies nausea vomiting or diarrhea. Patient denies any urinary burning or frequency. On 05/18/2019 patient's alert and oriented 3. Patient reports she feels improvement. Platelets 18, wBC 0.2 and hemoglobin 7.1. Awaiting oncology plan. At this time patient denies any chest pain or shortness of breath. Patient denies nausea vomiting or diarrhea. Patient denies any urinary burning or frequencyOn 05/19/2019 patient was seen and examined on the medical floor she is alert and oriented 3 in no apparent distress, white blood count remains at 0.2 hemoglobin 7.2 and platelet count 24 potassium is low at 3.2 Clinically patient is doing well she is alert and oriented she denies any complaints there is no fever or chills no headache or dizziness no chest pain no shortness of breath no cough no nausea or vomiting no abdominal pain no diarrhea and no urinary symptoms On 05/20/2019 patient is doing well she is complaining of nausea and very poor appetite otherwise she denies any complaints there is no fever or chills no hea dache or dizziness no chest pain no shortness of breath no cough no nausea or vomiting no abdominal pain no diarrhea no burning with urination no frequency or urgency no hematuria On 05/21/2018 patient alert and oriented 3. Patient reports she has no appetite and nausea. Hemoglobin low at 6.5. WBC 0.2. Oncology service Are following. 1 unit of PRBCs ordered. She denies chest pain or shortness of breath. Patient denies any urinary burning or frequency. On 05/22/2018 patient is alert and oriented 3. Patient expresses that she is frustrated and wants home. Patient's heart rate elevated. Sinus tach. Metoprolol has been added. Patient reports decreased appetite with nausea. Jas swan reports diarrhea has improved. Patient 1 unit of platelets today. Hemoglobin 9.2. At this time. Denies chest pain or shortness of breath. Patient denies any urinary burning or frequency Objective - Vital Signs Vital signs: Vital Signs Temp 98.2 F 05/22/19 04:49 Pulse 109 H 05/22/19 04:49 Resp 18 05/22/19 04:49 BP 154/94 05/22/19 04:49 Pulse Ox 95 05/22/19 04:49 Intake & Output 05/21/19 05/22/19 05/22/19 18:59 06:59 18:59 Intake Total 560 1435 Output Total 200 Balance 360 1435 Weight 100.7 kg Intake: Intake, IV Titration 1125 Amount 0.9% NaCl with KCl 40 Meq 1125 /l 1,000 ml @ 125 mls/hr IV .Q8H [facility] Rx#:[id number] Oral 560 Blood Product 310 Rc Irr As1 Unit 310 [id number] Output: Urine 200 Other: Voiding Method Bedside Commode Bedside Commode # Voids 2 3 # Bowel Movements 1 3 - Exam Head normocephalic Neck supple Lungs clear to auscultation bilaterally no wheezing or crackles Heart regular rate and rhythm S1-S2, no rub or gallop Abdomen is soft nontender nondistended positive bowel sounds no hepatosplenomegaly Extremities no edema. Bilateral leg boots in place Neuro alert and orientated to 3 - Labs CBC & Chem 7: 05/22/19 09:03 05/22/19 09:03 Labs: Abnormal Lab Results - Last 24 Hours (Table) 05/21/19 05/21/19 05/21/19 Range/Units 08:55 10:49 10:49 WBC (3.8-10.6) k/uL RBC (3.80-5.40) m/uL Hgb (11.4-16.0) gm/dL Hct (34.0-46.0) % Plt Count 25 L D 28 L (150-450) k/uL PT (9.0-12.0) sec INR (<1.2) Sodium (137-145) mmol/L Creatinine (0.52-1.04) mg/dL Glucose (74-99) mg/dL POC Glucose (mg/dL) (75-99) mg/dL Calcium (8.4-10.2) mg/dL Total Bilirubin (0.2-1.3) mg/dL AST (14-36) U/L Total Protein (6.3-8.2) g/dL Albumin (3.5-5.0) g/dL Urine Protein (Negative) Urine Blood (Negative) Urine RBC (0-5) /hpf Urine Mucus (None) /hpf Crossmatch See Detail 05/21/19 05/21/19 05/21/19 Range/Units 11:08 11:48 16:50 WBC (3.8-10.6) k/uL RBC (3.80-5.40) m/uL Hgb (11.4-16.0) gm/dL Hct (34.0-46.0) % Plt Count (150-450) k/uL PT 12.9 H (9.0-12.0) sec INR 1.3 H (<1.2) Sodium (137-145) mmol/L Creatinine (0.52-1.04) mg/dL Glucose (74-99) mg/dL POC Glucose (mg/dL) 228 H 164 H (75-99) mg/dL Calcium (8.4-10.2) mg/dL Total Bilirubin (0.2-1.3) mg/dL AST (14-36) U/L Total Protein (6.3-8.2) g/dL Albumin (3.5-5.0) g/dL Urine Protein (Negative) Urine Blood (Negative) Urine RBC (0-5) /hpf Urine Mucus (None) /hpf Crossmatch 05/21/19 05/21/19 05/22/19 Range/Units 20:10 20:48 07:07 WBC (3.8-10.6) k/uL RBC (3.80-5.40) m/uL Hgb (11.4-16.0) gm/dL Hct (34.0-46.0) % Plt Count (150-450) k/uL PT (9.0-12.0) sec INR (<1.2) Sodium (137-145) mmol/L Creatinine (0.52-1.04) mg/dL Glucose (74-99) mg/dL POC Glucose (mg/dL) 174 H 172 H (75-99) mg/dL Calcium (8.4-10.2) mg/dL Total Bilirubin (0.2-1.3) mg/dL AST (14-36) U/L Total Protein (6.3-8.2) g/dL Albumin (3.5-5.0) g/dL Urine Protein Trace H (Negative) Urine Blood Trace H (Negative) Urine RBC 6 H (0-5) /hpf Urine Mucus Rare H (None) /hpf Crossmatch 05/22/19 05/22/19 Range/Units 09:03 09:03 WBC 0.3 L* (3.8-10.6) k/uL RBC 2.95 L (3.80-5.40) m/uL Hgb 9.2 L D (11.4-16.0) gm/dL Hct 27.5 L (34.0-46.0) % Plt Count 8 L* D (150-450) k/uL PT (9.0-12.0) sec INR (<1.2) Sodium 136 L (137-145) mmol/L Creatinine 0.35 L (0.52-1.04) mg/dL Glucose 204 H (74-99) mg/dL POC Glucose (mg/dL) (75-99) mg/dL Calcium 7.7 L (8.4-10.2) mg/dL Total Bilirubin 2.3 H (0.2-1.3) mg/dL AST 13 L (14-36) U/L Total Protein 5.7 L (6.3-8.2) g/dL Albumin 2.7 L (3.5-5.0) g/dL Urine Protein (Negative) Urine Blood (Negative) Urine RBC (0-5) /hpf Urine Mucus (None) /hpf Crossmatch Microbiology - Last 24 Hours (Table) 05/21/19 21:30 Stool Culture - Preliminary Stool 05/15/19 21:53 Blood Culture - Final Blood No Growth after 144 hours 05/15/19 19:48 Blood Culture - Final Blood No Growth after 144 hours 05/15/19 02:30 Stool Culture - Final Stool Assessment and Plan Assessment: 1. Acute myelomonocytic leukemia. Patient remained for inpatient chemotherapy. Patient admitted to oncology services. Induction chemo 7+3 regimen completed 2. Multiple joint pain due to acute myeloid leukemia. Home meds resumed. Joint pain improving with chemotherapy 3. History of essential hypertension 4. Diabetes mellitus. Metformin reordered sliding scale insulin ordered 5. History of hyperlipidemia 6. 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 Hemoglobin 6.7. Patient received 3 unit of PRBCs. hgb 6.5. Patient received additional dose of 1 unit PRBCs 7. Pancytopenia. Due to underlining chemotherapy. Oncology service is following. Per oncology no intervention for low WBC. Continue antibiotics antiviral antifungals. 8. Diarrhea. C. diff negative. Per oncology services likely chemo related 9. Low-grade temps. Chest x-ray showing no acute pulmonary process. Blood and urine cultures ordered. Patient started on Levaquin per oncology services 10. Tachycardia. Patient currently on cardiac telemetry monitoring. EKG has been ordered. Magnesium level 1.4 will replace. Metroprolol 25 mg twice a day added 11. Positive stool for occult blood. Patient having low platelets due to chemotherapy patient to receive platelets today per oncology will continue monitor hemoglobin and transfuse for less than 7 or patient is symptomatic per oncology 12. Chemo-induced anorexia. Marinol has been started per oncology I performed an examination of the patient and discussed their management with the Nurse Practitioner. I have reviewed the Nurse Practitioner's notes and agree with the documented findings and plan of care
[2019-05-22 11:34] LABS: Glucose,Whole Blood 186 mg/dL (75-99)
[2019-05-22] MEDS: LEVOFLOXACIN 500 MG TAB PO SCH (13:10)
[2019-05-22] MEDS: PROCHLORPERAZINE 10 MG TAB PO PRN (13:10)
[2019-05-22 17:17] LABS: Glucose,Whole Blood 145 mg/dL (75-99)
[2019-05-22 20:45] LABS: Glucose,Whole Blood 137 mg/dL (75-99)
[2019-05-23] MEDS: 0.9% NACL WITH KCL 40 MEQ/L 1,000 ML IV SCH ×2 (03:42→16:51)
[2019-05-23 07:14] LABS: Glucose,Whole Blood 156 mg/dL (75-99)
[2019-05-23] MEDS: PRAVASTATIN SODIUM 20 MG TAB PO SCH (07:58)
[2019-05-23] MEDS: ACYCLOVIR 200 MG CAP PO SCH ×2 (07:58→20:28)
[2019-05-23] MEDS: CHOLECALCIFEROL 400 UNIT TAB PO SCH (07:58)
[2019-05-23] MEDS: NYSTATIN 100,000 UNIT/ML SUSP 500,000 UNIT/5 ML CUP PO SCH ×4 (07:58→20:26)
[2019-05-23] MEDS: FLUCONAZOLE 100 MG TAB PO SCH (07:59)
[2019-05-23] MEDS: metFORMIN 500 MG TAB PO SCH ×2 (07:59→20:26)
[2019-05-23] MEDS: SENNOSIDES-DOCUSATE SODIUM 1 EACH TAB PO SCH ×2 (07:59→20:29)
[2019-05-23] MEDS: ALLOPURINOL 300 MG TAB PO SCH (07:59)
[2019-05-23] MEDS: LISINOPRIL-HCTZ 10-12.5 MG 1 EACH TAB PO SCH (07:59)
[2019-05-23] MEDS: CITALOPRAM HYDROBROMIDE 20 MG TAB PO SCH (07:59)
[2019-05-23] MEDS: METOPROLOL TARTRATE 25 MG TAB PO SCH ×2 (07:59→20:29)
[2019-05-23] MEDS: DRONABINOL 2.5 MG CAP PO SCH ×2 (07:59→16:51)
[2019-05-23] MEDS: NYSTATIN 100,000 UNIT/GM POWD 15 GM TOPICAL SCH ×2 (08:00→20:29)
[2019-05-23] MEDS: CHOLESTYRAMINE (WITH SUGAR) 4 GM PACKET PO SCH ×4 (08:00→20:29)
[2019-05-23] MEDS: SALT AND SODA MOUTHWASH 1,000 ML PO SCH ×4 (08:01→20:29)
[2019-05-23] MEDS: INSULIN ASPART (NovoLOG) 100 UNIT/ML VIAL SQ SCH ×4 (08:07→20:28)
[2019-05-23 08:37] LABS: ALT 21 U/L (9-52); AST 9 U/L (14-36); African American GFR (CKD) >90 (>60 ml/min/1.73 sqM); Albumin 2.2 g/dL (3.5-5.0); Alkaline Phosphatase 74 U/L (38-126); Anion Gap 8 mmol/L; Blood Urea Nitrogen 9 mg/dL (7-17); Carbon Dioxide 27 mmol/L (22-30); Chloride 101 mmol/L (98-107); Glucose 148 mg/dL (74-99); Magnesium 1.5 mg/dL (1.6-2.3); Potassium 3.4 mmol/L (3.5-5.1); Sodium 136 mmol/L (137-145); Total Bilirubin 1.9 mg/dL (0.2-1.3); Total Protein 4.9 g/dL (6.3-8.2)
[2019-05-23 09:04] LABS: HCT 20.9 % (34.0-46.0); MCH 31.2 pg (25.0-35.0); MCHC 33.3 g/dL (31.0-37.0); Mean Platelet Volume 12.1; RBC 2.22 m/uL (3.80-5.40); RDW 15.5 % (11.5-15.5)
[2019-05-23 09:45] LABS: HGB 6.9 gm/dL (11.4-16.0); Platelet Count 10 k/uL (150-450); WBC 0.3 k/uL (3.8-10.6)
[2019-05-23] MEDS: PROCHLORPERAZINE 10 MG TAB PO PRN (10:04)
[2019-05-23] MEDS ORDERED: Magnesium Replacement Protocol 1 EACH MISC MISCELLANE PRN (11:06)
[2019-05-23] MEDS ORDERED: Potassium Replacement Protocol 1 EACH MISC MISCELLANE PRN (11:06)
--- NOTE | 2019-05-23 11:08 | P.PN ---
Subjective Progress Note Date: 05/23/19 This is a 64-year-old patient of Dr. miller. Patient presents for inpatient chemotherapy admitted to oncology services. Patient was recently admitted on 04/10/2019 for multiple joint swelling along with abnormal CBC with increased blastocyte. Patient underwent but bone marrow aspiration biopsy on 04/13/2019. Per oncology service is findings consistent with acute myeloid leukemia. Additional medical history includes diabetes mellitus, hyperlipidemia and hypertension. Patient had PICC line placed to receive chemotherapy. Patient planning first round of chemotherapy today patient will require hospitalization for 7 days. This time patient denies any chest pain or shortness breath. Patient denies nausea vomiting or diarrhea. Patient denies any urinary burning or frequency. She does reports she still having chronic pain due to multiple joint swelling. 2-D echo completed showing EF of 60-65%. On 05/08/2019 patient underwent prescribed chemotherapy yesterday. Patient reports that she is feeling well. Small amount of nausea. Patient reports improvement with her joint discomfort. Patient denies any chest pain or shortness of breath patient denies nausea vomiting or diarrhea. Patient denies any urinary burning or frequency. On 05/09/2019 patient is alert and oriented 3. Patient reports a small amount of nausea but states overall she is feeling well. Patient did receive 1 unit of PRBCs for hemoglobin 6. 9. Repeat hemoglobin 7.9. At this time patient denies chest pain or shortness breath. Patient denies nausea vomiting diarrhea. Patient denies any urinary burning or frequency. On 05/10/2019 patient's alert and oriented 3 patient is still having some nausea and feels overall well. Patient reports improvement with her joint discomfort hemoglobin 7.1. Patient denies any sores in mouth. Patient denies any rashes or open lesions. Patient denies nausea vomiting or diarrhea. UA was negative On 05/11/2019 patient's alert and oriented 3. Patient complains of some nausea but is controlled with medication and blas angel. Patient has been tolerating chemo. Plan for discharge on Tuesday. Patient denies any chest pain or shortness breath. Patient denies nausea vomiting or diarrhea. Patient denies any urinary burning or frequency. On 05/12/2019 patient was seen and examined on the oncology floor she is alert and oriented 3 in no apparent distress very pleasant complaining of nausea otherwise she denies any complaints there is no fever or chills no headache or dizziness no chest pain no shortness of breath no cough no nausea or vomiting no abdominal pain no diarrhea and no urinary symptoms On 05/13/2018 patient remains alert and oriented 3. Patient complaining some nausea and sleepiness but denies any other acute symptoms. Patient denies chest pain or shortness breath. Patient denies any urinary burning or frequency. Hemoglobin stable at 7.6 On 05/14/2019 patient's alert and oriented 3. Patient to receive a dose of chemotherapy today. Hemoglobin 7.4. Patient is having loose stools C. diff sample ordered per oncology. Patient complains of nausea. Patient denies any chest pain or shortness of breath. Patient denies any urinary burning or frequency On 05/15/2019 patient's alert and oriented 3. Planning possible discharge today per oncology services. Patient has received 7 rounds chemotherapy. Patient still complaining of intermittent nausea. C. diff was negative. Patient denies any chest pain or shortness of breath. Patient denies any urinary burning or frequency On 05/16/2019 patient's alert and oriented 3. Yesterday afternoon and evening patient started to have low-grade temps along with elevated heart rate. Chest x-ray completed showing no acute pulmonary process. Patient started on Levaquin per oncology. Blood and urine cultures ordered. EKG ordered a she is on cardiac telemetry monitoring. Magnesium low at 1.4 replace per protocol. Patient did receive platelets yesterday platelets remain low at 14 will receive additional unit of platelets today per oncology. At this time patient denies any specific complaints. Patient denies any cough or shortness of breath. Patient denies any abdominal pain or emesis. Patient is nauseated. Patient denies urinary burning or frequency. On 05/17/2019 patient's alert and oriented 3. Patient reports that she feels improved from yesterday. Patient to get another unit of blood and platelets today per oncology. Heart rate has improved. Patient denies any chest pain or shortness of breath. Patient denies nausea vomiting or diarrhea. Patient denies any urinary burning or frequency. On 05/18/2019 patient's alert and oriented 3. Patient reports she feels improvement. Platelets 18, wBC 0.2 and hemoglobin 7.1. Awaiting oncology plan. At this time patient denies any chest pain or shortness of breath. Patient denies nausea vomiting or diarrhea. Patient denies any urinary burning or frequencyOn 05/19/2019 patient was seen and examined on the medical floor she is alert and oriented 3 in no apparent distress, white blood count remains at 0.2 hemoglobin 7.2 and platelet count 24 potassium is low at 3.2 Clinically patient is doing well she is alert and oriented she denies any complaints there is no fever or chills no headache or dizziness no chest pain no shortness of breath no cough no nausea or vomiting no abdominal pain no diarrhea and no urinary symptoms On 05/20/2019 patient is doing well she is complaining of nausea and very poor appetite otherwise she denies any complaints there is no fever or chills no hea dache or dizziness no chest pain no shortness of breath no cough no nausea or vomiting no abdominal pain no diarrhea no burning with urination no frequency or urgency no hematuria On 05/21/2018 patient alert and oriented 3. Patient reports she has no appetite and nausea. Hemoglobin low at 6.5. WBC 0.2. Oncology service Are following. 1 unit of PRBCs ordered. She denies chest pain or shortness of breath. Patient denies any urinary burning or frequency. On 05/22/2018 patient is alert and oriented 3. Patient expresses that she is frustrated and wants home. Patient's heart rate elevated. Sinus tach. Metoprolol has been added. Patient reports decreased appetite with nausea. Jas swan reports diarrhea has improved. Patient 1 unit of platelets today. Hemoglobin 9.2. At this time. Denies chest pain or shortness of breath. Patient denies any urinary burning or frequency On 05/23/2019 patient is currently resting comfortably in bed. Patient still eager to go home. Hemoglobin 6.9, platelets time and white blood cell 0.3. Potassium 3.4 ordered placement. Magnesium 1.5 will be replace per protocol. This time patient denies chest pain or shortness breath. Patient denies nausea vomiting or diarrhea. Patient denies any urinary burning or frequency. Objective - Vital Signs Vital signs: Vital Signs Temp 99.3 F 05/23/19 05:00 Pulse 110 H 05/23/19 05:00 Resp 18 05/23/19 05:00 BP 139/84 05/23/19 05:00 Pulse Ox 96 05/23/19 05:00 Intake & Output 05/22/19 05/23/19 05/23/19 18:59 06:59 18:59 Intake Total 908 1969 Balance 908 1969 Weight 98 kg Intake: Intake, IV Titration 500 1500 Amount 0.9% NaCl with KCl 40 Meq 500 1500 /l 1,000 ml @ 125 mls/hr IV .Q8H ON LICENSE OF [facility] Rx#:[id number] Oral 470 Blood Product 408 Platelet Irr Pheresis 3 204 Acda Unit [id number] Other: Voiding Method Bedside Commode Bedside Commode # Voids 3 # Bowel Movements 1 - Exam Head normocephalic Neck supple Lungs clear to auscultation bilaterally no wheezing or crackles Heart regular rate and rhythm S1-S2, no rub or gallop Abdomen is soft nontender nondistended positive bowel sounds no hepatosplenomegaly Extremities no edema. Bilateral leg boots in place Neuro alert and orientated to 3 - Labs CBC & Chem 7: 05/23/19 07:53 05/23/19 07:53 Labs: Abnormal Lab Results - Last 24 Hours (Table) 05/22/19 05/22/19 05/22/19 Range/Units 11:32 17:15 20:43 WBC (3.8-10.6) k/uL RBC (3.80-5.40) m/uL Hgb (11.4-16.0) gm/dL Hct (34.0-46.0) % Plt Count (150-450) k/uL Sodium (137-145) mmol/L Potassium (3.5-5.1) mmol/L Creatinine (0.52-1.04) mg/dL Glucose (74-99) mg/dL POC Glucose (mg/dL) 186 H 145 H 137 H (75-99) mg/dL Calcium (8.4-10.2) mg/dL Magnesium (1.6-2.3) mg/dL Total Bilirubin (0.2-1.3) mg/dL AST (14-36) U/L Total Protein (6.3-8.2) g/dL Albumin (3.5-5.0) g/dL 05/23/19 05/23/19 05/23/19 Range/Units 07:13 07:53 07:53 WBC 0.3 L* (3.8-10.6) k/uL RBC 2.22 L (3.80-5.40) m/uL Hgb 6.9 L* D (11.4-16.0) gm/dL Hct 20.9 L (34.0-46.0) % Plt Count 10 L* (150-450) k/uL Sodium 136 L (137-145) mmol/L Potassium 3.4 L (3.5-5.1) mmol/L Creatinine 0.36 L (0.52-1.04) mg/dL Glucose 148 H (74-99) mg/dL POC Glucose (mg/dL) 156 H (75-99) mg/dL Calcium 7.0 L (8.4-10.2) mg/dL Magnesium 1.5 L (1.6-2.3) mg/dL Total Bilirubin 1.9 H (0.2-1.3) mg/dL AST 9 L (14-36) U/L Total Protein 4.9 L (6.3-8.2) g/dL Albumin 2.2 L (3.5-5.0) g/dL Microbiology - Last 24 Hours (Table) 05/21/19 12:26 Blood Culture - Preliminary Blood No Growth after 24 hours 05/21/19 11:08 Blood Culture - Preliminary Blood No Growth after 24 hours 05/21/19 21:30 Stool Culture - Preliminary Stool Assessment and Plan Assessment: 1. Acute myelomonocytic leukemia. Patient remained for inpatient chemotherapy. Patient admitted to oncology services. Induction chemo 7+3 regimen completed 2. Multiple joint pain due to acute myeloid leukemia. Home meds resumed. Joint pain improving with chemotherapy 3. History of essential hypertension 4. Diabetes mellitus. Metformin reordered sliding scale insulin ordered 5. History of hyperlipidemia 6. 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 Hemoglobin 6.7. Patient received 3 unit of PRBCs. hgb 6.5. Patient received additional dose of 1 unit PRBCs 7. Pancytopenia. Due to underlining chemotherapy. Oncology service is following. Per oncology no intervention for low WBC. Continue antibiotics antiviral antifungals. 8. Diarrhea. C. diff negative. Per oncology services likely chemo related 9. Low-grade temps. Chest x-ray showing no acute pulmonary process. Blood and urine cultures ordered. Patient started on Levaquin per oncology services 10. Sinus Tachycardia. Patient currently on cardiac telemetry monitoring. EKG has been ordered. Magnesium level 1.4 will replace. Metroprolol 25 mg twice a day added 11. Positive stool for occult blood. Patient having low platelets due to chemotherapy patient to receive platelets today per oncology will continue monitor hemoglobin and transfuse for less than 7 or patient is symptomatic per oncology 12. Chemo-induced anorexia. Marinol has been started per oncology I performed an examination of the patient and discussed their management with the Nurse Practitioner. I have reviewed the Nurse Practitioner's notes and agree with the documented findings and plan of care
[2019-05-23] MEDS: MAGNESIUM SULFATE-D5W PMX 1 GM in DEXTROSE/WATER 1 100ML.BAG IVPB SCH ×2 (12:00→13:46)
[2019-05-23 12:02] LABS: Glucose,Whole Blood 189 mg/dL (75-99)
--- NOTE | 2019-05-23 12:53 | P.PN ---
Subjective Progress Note Date: 05/23/19 Principal diagnosis: AML Transfusions for PRBC and Platlets today Objective - Vital Signs Vital signs: Vital Signs Temp 97.7 F 05/23/19 12:06 Pulse 120 H 05/23/19 12:06 Resp 18 05/23/19 12:06 BP 146/73 05/23/19 12:06 Pulse Ox 99 05/23/19 12:06 Intake & Output 05/22/19 05/23/19 05/23/19 18:59 06:59 18:59 Intake Total 908 1970 Balance 908 1969 Weight 98 kg Intake: Intake, IV Titration 500 1500 Amount 0.9% NaCl with KCl 40 Meq 500 1500 /l 1,000 ml @ 125 mls/hr IV .Q8H LAST Rx#:[id number] Oral 470 Blood Product 408 Platelet Irr Pheresis 3 204 Acda Unit [id number] Other: Voiding Method Bedside Commode Bedside Commode Bedside Commode # Voids 3 # Bowel Movements 1 - Exam - Constitutional General appearance: Present: average body habitus, cooperative, no acute distress - EENT Eyes: Present: anicteric sclerae, EOMI ENT: Present: hearing grossly normal, normal oropharynx - Respiratory Respiratory: bilateral: CTA - Cardiovascular Rhythm: regular Heart sounds: normal: S1, S2 Abnormal Heart Sounds: Absent: systolic murmur, diastolic murmur, rub, S3 Gallop, S4 Gallop, click, other - Peripheral edema leg Peripheral Edema: bilateral: None - Gastrointestinal General gastrointestinal: Present: normal bowel sounds, soft - Genitourinary Genitourinary Comment(s): Perineal area examination whitish color and odor of yeast, suspicious for yeast infection. - Neurologic Neurologic: Present: CNII-XII intact - Musculoskeletal Musculoskeletal: Present: generalized weakness, strength equal bilaterally - Psychiatric Psychiatric: Present: A&O x's 3, appropriate affect, intact judgment & insight - Labs CBC & Chem 7: 05/23/19 07:53 05/23/19 07:53 Labs: Abnormal Lab Results - Last 24 Hours (Table) 05/22/19 05/22/19 05/23/19 Range/Units 17:15 20:43 07:13 WBC (3.8-10.6) k/uL RBC (3.80-5.40) m/uL Hgb (11.4-16.0) gm/dL Hct (34.0-46.0) % Plt Count (150-450) k/uL Sodium (137-145) mmol/L Potassium (3.5-5.1) mmol/L Creatinine (0.52-1.04) mg/dL Glucose (74-99) mg/dL POC Glucose (mg/dL) 145 H 137 H 156 H (75-99) mg/dL Calcium (8.4-10.2) mg/dL Magnesium (1.6-2.3) mg/dL Total Bilirubin (0.2-1.3) mg/dL AST (14-36) U/L Total Protein (6.3-8.2) g/dL Albumin (3.5-5.0) g/dL 05/23/19 05/23/19 05/23/19 Range/Units 07:53 07:53 11:50 WBC 0.3 L* (3.8-10.6) k/uL RBC 2.22 L (3.80-5.40) m/uL Hgb 6.9 L* D (11.4-16.0) gm/dL Hct 20.9 L (34.0-46.0) % Plt Count 10 L* (150-450) k/uL Sodium 136 L (137-145) mmol/L Potassium 3.4 L (3.5-5.1) mmol/L Creatinine 0.36 L (0.52-1.04) mg/dL Glucose 148 H (74-99) mg/dL POC Glucose (mg/dL) 189 H (75-99) mg/dL Calcium 7.0 L (8.4-10.2) mg/dL Magnesium 1.5 L (1.6-2.3) mg/dL Total Bilirubin 1.9 H (0.2-1.3) mg/dL AST 9 L (14-36) U/L Total Protein 4.9 L (6.3-8.2) g/dL Albumin 2.2 L (3.5-5.0) g/dL Microbiology - Last 24 Hours (Table) 05/21/19 12:26 Blood Culture - Preliminary Blood No Growth after 24 hours 05/21/19 11:08 Blood Culture - Preliminary Blood No Growth after 24 hours 05/21/19 21:30 Stool Culture - Preliminary Stool Assessment and Plan Plan: Pancytopenia due to antineoplastic chemotherapy Transfusion for hemoglobin less than 7, be very conservative with transfusions. Transfuse for platelet count of less than 10,000 or if symptomatic. 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 Completed Supportive medications ordered, and sent to Pharmacy Plan for 3x a week blood draw in office next week if discharged today or over weekend. Polyarthralgia - Improved ? if r/t AML. Improved with tylenol #3, pt is now able to ambulate with bilateral leg braces and walker. D/W case wtih PT. Encouraged pt remove leg braces due to skin breakdown concerns and to evaluate pain and strength in the ankles. Encouraged her to follow PT instructions and use their support when d oing therapy. Diarrhea - Improved - Chemo related. C diff neg. Occult positive, hematochezia noted. - Hgb stable today, when taken into account last transfusion as well as chemo effects. - Platelets ordered for today until stool is at least grossly negative for bl ood. 1 dose of DDAVP given 05/17 - Cont CBC daily. - Antidiarrheals ordered. - Add Questran Lisa infection of genital region Hypokalemia: - improved continue IV Fluids - 3.4 today Neutropenic Colitis - Bowel Rest - Topical antifungal prescribed. - Nystatin swish and swallow prophylaxic prescribed as well, QT prolon with diflucan, if further infectious fungal presents benefit of systemic antifungal out weighs risk Anorexia, Decreased PO Appetite: - Secondary to Lisa oral and AML - Marinol is on board - Unable to increase PO intable untol colitis improved Plan: Antiviral, antifungal, antibacterial prescriptions all sent to patient's [facility] in [place]. Antibiotics Compazine prescription also sent. If patient is well enough and completes therapy on time she has a CBC follow-up appt on Tuesday at 9:15 AM, she will make further appointments at that time. - Encourage patient up and out of bed - In chair all meals - encourage questran Transfuse one irradaited Platlets and PRBC today
[2019-05-23] MEDS: ONDANSETRON 4 MG/2 ML VIAL IVP PRN ×2 (13:44→20:27)
[2019-05-23] MEDS: POTASSIUM CHLORIDE ER 20 MEQ TAB.ER PO SCH ×2 (13:46→16:49)
[2019-05-23] MEDS: LEVOFLOXACIN 500 MG TAB PO SCH (13:47)
[2019-05-23 16:58] LABS: Glucose,Whole Blood 203 mg/dL (75-99)
[2019-05-23 20:09] LABS: Glucose,Whole Blood 184 mg/dL (75-99)
[2019-05-23] MEDS: Acetaminophen-Codeine 300-30mg TAB PO PRN (20:34)
[2019-05-24] MEDS: 0.9% NACL WITH KCL 40 MEQ/L 1,000 ML IV SCH ×4 (01:36→21:32)
[2019-05-24 07:05] LABS: Glucose,Whole Blood 167 mg/dL (75-99)
[2019-05-24 08:03] LABS: HCT 23.4 % (34.0-46.0); HGB 7.8 gm/dL (11.4-16.0); MCH 30.4 pg (25.0-35.0); MCHC 33.4 g/dL (31.0-37.0); Mean Platelet Volume 7.8; RBC 2.58 m/uL (3.80-5.40); RDW 14.4 % (11.5-15.5)
[2019-05-24 08:10] LABS: Platelet Count 6 k/uL (150-450); WBC 0.4 k/uL (3.8-10.6)
[2019-05-24 08:21] LABS: ALT 16 U/L (9-52); AST 8 U/L (14-36); African American GFR (CKD) >90 (>60 ml/min/1.73 sqM); Albumin 2.3 g/dL (3.5-5.0); Alkaline Phosphatase 78 U/L (38-126); Anion Gap 7 mmol/L; Blood Urea Nitrogen 8 mg/dL (7-17); Calcium 7.2 mg/dL (8.4-10.2); Carbon Dioxide 28 mmol/L (22-30); Chloride 101 mmol/L (98-107); Glucose 156 mg/dL (74-99); Potassium 3.3 mmol/L (3.5-5.1); Sodium 136 mmol/L (137-145); Total Bilirubin 2.4 mg/dL (0.2-1.3); Total Protein 5.1 g/dL (6.3-8.2)
[2019-05-24] MEDS ORDERED: Potassium Replacement Protocol 1 EACH MISC MISCELLANE PRN (08:23)
[2019-05-24] MEDS: CHOLECALCIFEROL 400 UNIT TAB PO SCH (08:42)
[2019-05-24] MEDS: PRAVASTATIN SODIUM 20 MG TAB PO SCH (08:43)
[2019-05-24] MEDS: CHOLESTYRAMINE (WITH SUGAR) 4 GM PACKET PO SCH ×4 (08:44→22:15)
[2019-05-24] MEDS: SENNOSIDES-DOCUSATE SODIUM 1 EACH TAB PO SCH ×2 (08:44→21:31)
[2019-05-24] MEDS: CITALOPRAM HYDROBROMIDE 20 MG TAB PO SCH (08:45)
[2019-05-24] MEDS: ACYCLOVIR 200 MG CAP PO SCH ×2 (08:46→20:20)
[2019-05-24] MEDS: DRONABINOL 2.5 MG CAP PO SCH ×2 (08:47→17:29)
[2019-05-24] MEDS: METOPROLOL TARTRATE 25 MG TAB PO SCH ×3 (08:47→21:33)
[2019-05-24] MEDS: NYSTATIN 100,000 UNIT/ML SUSP 500,000 UNIT/5 ML CUP PO SCH ×4 (08:48→21:33)
[2019-05-24] MEDS: NYSTATIN 100,000 UNIT/GM POWD 15 GM TOPICAL SCH ×2 (08:49→20:21)
[2019-05-24] MEDS: SALT AND SODA MOUTHWASH 1,000 ML PO SCH ×4 (08:50→20:21)
[2019-05-24] MEDS: ALLOPURINOL 300 MG TAB PO SCH (08:50)
[2019-05-24] MEDS: LISINOPRIL-HCTZ 10-12.5 MG 1 EACH TAB PO SCH (08:56)
[2019-05-24] MEDS: FLUCONAZOLE 100 MG TAB PO SCH (08:58)
[2019-05-24] MEDS: metFORMIN 500 MG TAB PO SCH ×2 (08:58→20:21)
[2019-05-24] MEDS: INSULIN ASPART (NovoLOG) 100 UNIT/ML VIAL SQ SCH ×4 (09:00→20:21)
[2019-05-24] MEDS: POTASSIUM CHLORIDE ER 20 MEQ TAB.ER PO SCH ×2 (09:07→11:35)
--- NOTE | 2019-05-24 09:59 | P.PN ---
Subjective Progress Note Date: 05/24/19 This is a 64-year-old patient of Dr. miller. Patient presents for inpatient chemotherapy admitted to oncology services. Patient was recently admitted on 04/10/2019 for multiple joint swelling along with abnormal CBC with increased blastocyte. Patient underwent but bone marrow aspiration biopsy on 04/13/2019. Per oncology service is findings consistent with acute myeloid leukemia. Additional medical history includes diabetes mellitus, hyperlipidemia and hypertension. Patient had PICC line placed to receive chemotherapy. Patient planning first round of chemotherapy today patient will require hospitalization for 7 days. This time patient denies any chest pain or shortness breath. Patient denies nausea vomiting or diarrhea. Patient denies any urinary burning or frequency. She does reports she still having chronic pain due to multiple joint swelling. 2-D echo completed showing EF of 60-65%. On 05/08/2019 patient underwent prescribed chemotherapy yesterday. Patient reports that she is feeling well. Small amount of nausea. Patient reports improvement with her joint discomfort. Patient denies any chest pain or shortness of breath patient denies nausea vomiting or diarrhea. Patient denies any urinary burning or frequency. On 05/09/2019 patient is alert and oriented 3. Patient reports a small amount of nausea but states overall she is feeling well. Patient did receive 1 unit of PRBCs for hemoglobin 6. 9. Repeat hemoglobin 7.9. At this time patient denies chest pain or shortness breath. Patient denies nausea vomiting diarrhea. Patient denies any urinary burning or frequency. On 05/10/2019 patient's alert and oriented 3 patient is still having some nausea and feels overall well. Patient reports improvement with her joint discomfort hemoglobin 7.1. Patient denies any sores in mouth. Patient denies any rashes or open lesions. Patient denies nausea vomiting or diarrhea. UA was negative On 05/11/2019 patient's alert and oriented 3. Patient complains of some nausea but is controlled with medication and blas angel. Patient has been tolerating chemo. Plan for discharge on Tuesday. Patient denies any chest pain or shortness breath. Patient denies nausea vomiting or diarrhea. Patient denies any urinary burning or frequency. On 05/12/2019 patient was seen and examined on the oncology floor she is alert and oriented 3 in no apparent distress very pleasant complaining of nausea otherwise she denies any complaints there is no fever or chills no headache or dizziness no chest pain no shortness of breath no cough no nausea or vomiting no abdominal pain no diarrhea and no urinary symptoms On 05/13/2018 patient remains alert and oriented 3. Patient complaining some nausea and sleepiness but denies any other acute symptoms. Patient denies chest pain or shortness breath. Patient denies any urinary burning or frequency. Hemoglobin stable at 7.6 On 05/14/2019 patient's alert and oriented 3. Patient to receive a dose of chemotherapy today. Hemoglobin 7.4. Patient is having loose stools C. diff sample ordered per oncology. Patient complains of nausea. Patient denies any chest pain or shortness of breath. Patient denies any urinary burning or frequency On 05/15/2019 patient's alert and oriented 3. Planning possible discharge today per oncology services. Patient has received 7 rounds chemotherapy. Patient still complaining of intermittent nausea. C. diff was negative. Patient denies any chest pain or shortness of breath. Patient denies any urinary burning or frequency On 05/16/2019 patient's alert and oriented 3. Yesterday afternoon and evening patient started to have low-grade temps along with elevated heart rate. Chest x-ray completed showing no acute pulmonary process. Patient started on Levaquin per oncology. Blood and urine cultures ordered. EKG ordered a she is on cardiac telemetry monitoring. Magnesium low at 1.4 replace per protocol. Patient did receive platelets yesterday platelets remain low at 14 will receive additional unit of platelets today per oncology. At this time patient denies any specific complaints. Patient denies any cough or shortness of breath. Patient denies any abdominal pain or emesis. Patient is nauseated. Patient denies urinary burning or frequency. On 05/17/2019 patient's alert and oriented 3. Patient reports that she feels improved from yesterday. Patient to get another unit of blood and platelets today per oncology. Heart rate has improved. Patient denies any chest pain or shortness of breath. Patient denies nausea vomiting or diarrhea. Patient denies any urinary burning or frequency. On 05/18/2019 patient's alert and oriented 3. Patient reports she feels improvement. Platelets 18, wBC 0.2 and hemoglobin 7.1. Awaiting oncology plan. At this time patient denies any chest pain or shortness of breath. Patient denies nausea vomiting or diarrhea. Patient denies any urinary burning or frequencyOn 05/19/2019 patient was seen and examined on the medical floor she is alert and oriented 3 in no apparent distress, white blood count remains at 0.2 hemoglobin 7.2 and platelet count 24 potassium is low at 3.2 Clinically patient is doing well she is alert and oriented she denies any complaints there is no fever or chills no headache or dizziness no chest pain no shortness of breath no cough no nausea or vomiting no abdominal pain no diarrhea and no urinary symptoms On 05/20/2019 patient is doing well she is complaining of nausea and very poor appetite otherwise she denies any complaints there is no fever or chills no hea dache or dizziness no chest pain no shortness of breath no cough no nausea or vomiting no abdominal pain no diarrhea no burning with urination no frequency or urgency no hematuria On 05/21/2018 patient alert and oriented 3. Patient reports she has no appetite and nausea. Hemoglobin low at 6.5. WBC 0.2. Oncology service Are following. 1 unit of PRBCs ordered. She denies chest pain or shortness of breath. Patient denies any urinary burning or frequency. On 05/22/2018 patient is alert and oriented 3. Patient expresses that she is frustrated and wants home. Patient's heart rate elevated. Sinus tach. Metoprolol has been added. Patient reports decreased appetite with nausea. Jas swan reports diarrhea has improved. Patient 1 unit of platelets today. Hemoglobin 9.2. At this time. Denies chest pain or shortness of breath. Patient denies any urinary burning or frequency On 05/23/2019 patient is currently resting comfortably in bed. Patient still eager to go home. Hemoglobin 6.9, platelets time and white blood cell 0.3. Potassium 3.4 ordered placement. Magnesium 1.5 will be replace per protocol. This time patient denies chest pain or shortness breath. Patient denies nausea vomiting or diarrhea. Patient denies any urinary burning or frequency. On 05/24/2019 patient's alert and oriented 3. Platelets low at 6 this morning 1 unit of platelets ordered per oncology. Potassium replace per protocol. Patient reports improvement with diarrhea. Patient reports that she still having nausea. Patient denies chest pain or shortness of breath. Patient denies any urinary burning or frequency. No signs of blood in stool or hematuria Objective - Vital Signs Vital signs: Vital Signs Temp 98 F 05/24/19 09:51 Pulse 116 H 05/24/19 09:51 Resp 15 05/24/19 09:51 BP 130/67 05/24/19 09:51 Pulse Ox 95 05/24/19 09:51 Intake & Output 05/23/19 05/24/19 05/24/19 18:59 06:59 18:59 Intake Total 896 900 Output Total 200 200 Balance 696 700 Weight 99 kg Intake: Oral 600 590 Blood Product 296 310 Platelet Irr Pheresis 2 296 Acda Unit [id number] Rc Irr As1 Unit 0 310 [id number] Output: Urine 200 200 Other: Voiding Method Bedside Commode Bedside Commode # Voids 5 3 # Bowel Movements 5 3 - Exam Head normocephalic Neck supple Lungs clear to auscultation bilaterally no wheezing or crackles Heart regular rate and rhythm S1-S2, no rub or gallop Abdomen is soft nontender nondistended positive bowel sounds no hepatosplenomegaly Extremities no edema. Bilateral leg boots in place Neuro alert and orientated to 3 - Labs CBC & Chem 7: 05/24/19 07:33 05/24/19 07:33 Labs: Abnormal Lab Results - Last 24 Hours (Table) 05/21/19 05/23/19 05/23/19 Range/Units 10:49 07:53 11:50 WBC 0.3 L* (3.8-10.6) k/uL RBC (3.80-5.40) m/uL Hgb (11.4-16.0) gm/dL Hct (34.0-46.0) % Plt Count 10 L* (150-450) k/uL Sodium (137-145) mmol/L Potassium (3.5-5.1) mmol/L Creatinine (0.52-1.04) mg/dL Glucose (74-99) mg/dL POC Glucose (mg/dL) 189 H (75-99) mg/dL Calcium (8.4-10.2) mg/dL Total Bilirubin (0.2-1.3) mg/dL AST (14-36) U/L Total Protein (6.3-8.2) g/dL Albumin (3.5-5.0) g/dL Crossmatch See Detail 05/23/19 05/23/19 05/24/19 Range/Units 16:54 20:08 07:03 WBC (3.8-10.6) k/uL RBC (3.80-5.40) m/uL Hgb (11.4-16.0) gm/dL Hct (34.0-46.0) % Plt Count (150-450) k/uL Sodium (137-145) mmol/L Potassium (3.5-5.1) mmol/L Creatinine (0.52-1.04) mg/dL Glucose (74-99) mg/dL POC Glucose (mg/dL) 203 H 184 H 167 H (75-99) mg/dL Calcium (8.4-10.2) mg/dL Total Bilirubin (0.2-1.3) mg/dL AST (14-36) U/L Total Protein (6.3-8.2) g/dL Albumin (3.5-5.0) g/dL Crossmatch 05/24/19 05/24/19 Range/Units 07:33 07:33 WBC 0.4 L* (3.8-10.6) k/uL RBC 2.58 L (3.80-5.40) m/uL Hgb 7.8 L (11.4-16.0) gm/dL Hct 23.4 L (34.0-46.0) % Plt Count 6 L* (150-450) k/uL Sodium 136 L (137-145) mmol/L Potassium 3.3 L (3.5-5.1) mmol/L Creatinine 0.39 L (0.52-1.04) mg/dL Glucose 156 H (74-99) mg/dL POC Glucose (mg/dL) (75-99) mg/dL Calcium 7.2 L (8.4-10.2) mg/dL Total Bilirubin 2.4 H (0.2-1.3) mg/dL AST 8 L (14-36) U/L Total Protein 5.1 L (6.3-8.2) g/dL Albumin 2.3 L (3.5-5.0) g/dL Crossmatch Microbiology - Last 24 Hours (Table) 05/21/19 12:26 Blood Culture - Preliminary Blood No Growth after 48 hours 05/21/19 11:08 Blood Culture - Preliminary Blood No Growth after 48 hours Assessment and Plan Assessment: 1. Acute myelomonocytic leukemia. Patient remained for inpatient chemotherapy. Patient admitted to oncology services. Induction chemo 7+3 regimen completed 2. Multiple joint pain due to acute myeloid leukemia. Home meds resumed. Joint pain improving with chemotherapy 3. History of essential hypertension 4. Diabetes mellitus. Metformin reordered sliding scale insulin ordered 5. History of hyperlipidemia 6. 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 Patient has received 6 units of PRBCs. Hemoglobin currently 7.8. 7. Pancytopenia. Due to underlining chemotherapy. Oncology service is following. Per oncology no intervention for low WBC. Continue antibiotics antiviral antifungals. that the foot 6. Patient has received a total of 7 platelet transfusions 8. Diarrhea. C. diff negative. Per oncology services likely chemo related 9. Low-grade temps. Chest x-ray showing no acute pulmonary process. Blood and urine cultures ordered. Patient started on Levaquin per oncology services 10. Sinus Tachycardia. Patient currently on cardiac telemetry monitoring. EKG has been ordered. Magnesium level 1.4 will replace. Metroprolol 25 mg twice a day added 11. Positive stool for occult blood. Patient having low platelets due to chemotherapy patient to receive platelets today per oncology will continue monitor hemoglobin and transfuse for less than 7 or patient is symptomatic per oncology 12. Chemo-induced anorexia. Marinol has been started per oncology I performed an examination of the patient and discussed their management with the Nurse Practitioner. I have reviewed the Nurse Practitioner's notes and agree with the documented findings and plan of care
[2019-05-24 11:17] LABS: Glucose,Whole Blood 198 mg/dL (75-99)
[2019-05-24] MEDS: LEVOFLOXACIN 500 MG TAB PO SCH (11:35)
--- NOTE | 2019-05-24 14:06 | P.PN ---
Subjective Progress Note Date: 05/24/19 Principal diagnosis: AML Patient is not eating or adhering to medications. Concrn for depression. She has been encouraged to get up and out of bed. Hypokalemia lack of po intake. Re- explained the importance of adherence. Objective - Vital Signs Vital signs: Vital Signs Temp 98.5 F 05/24/19 11:21 Pulse 126 H 05/24/19 11:21 Resp 16 05/24/19 11:21 BP 143/75 05/24/19 11:21 Pulse Ox 96 05/24/19 11:21 Intake & Output 05/23/19 05/24/19 05/24/19 18:59 06:59 18:59 Intake Total 896 900 Output Total 200 200 Balance 696 700 Weight 99 kg Intake: Oral 600 590 Blood Product 296 310 Platelet Irr Pheresis 2 296 Acda Unit [id number] Rc Irr As1 Unit 0 310 [id number] Output: Urine 200 200 Other: Voiding Method Bedside Commode Bedside Commode Bedside Commode # Voids 5 3 # Bowel Movements 5 3 - Exam - Constitutional General appearance: Present: average body habitus, cooperative, no acute distress - EENT Eyes: Present: anicteric sclerae, EOMI ENT: Present: hearing grossly normal, normal oropharynx - Respiratory Respiratory: bilateral: CTA - Cardiovascular Rhythm: regular Heart sounds: normal: S1, S2 Abnormal Heart Sounds: Absent: systolic murmur, diastolic murmur, rub, S3 Gallop, S4 Gallop, click, other - Peripheral edema leg Peripheral Edema: bilateral: None - Gastrointestinal General gastrointestinal: Present: normal bowel sounds, soft - Genitourinary Genitourinary Comment(s): Perineal area examination whitish color and odor of yeast, suspicious for yeast infection. - Neurologic Neurologic: Present: CNII-XII intact - Musculoskeletal Musculoskeletal: Present: generalized weakness, strength equal bilaterally - Psychiatric Psychiatric: Present: A&O x's 3, appropriate affect, intact judgment & insight - Labs CBC & Chem 7: 05/24/19 07:33 05/24/19 07:33 Labs: Abnormal Lab Results - Last 24 Hours (Table) 05/21/19 05/23/19 05/23/19 Range/Units 10:49 16:54 20:08 WBC (3.8-10.6) k/uL RBC (3.80-5.40) m/uL Hgb (11.4-16.0) gm/dL Hct (34.0-46.0) % Plt Count (150-450) k/uL Sodium (137-145) mmol/L Potassium (3.5-5.1) mmol/L Creatinine (0.52-1.04) mg/dL Glucose (74-99) mg/dL POC Glucose (mg/dL) 203 H 184 H (75-99) mg/dL Calcium (8.4-10.2) mg/dL Total Bilirubin (0.2-1.3) mg/dL AST (14-36) U/L Total Protein (6.3-8.2) g/dL Albumin (3.5-5.0) g/dL Crossmatch See Detail 05/24/19 05/24/19 05/24/19 Range/Units 07:03 07:33 07:33 WBC 0.4 L* (3.8-10.6) k/uL RBC 2.58 L (3.80-5.40) m/uL Hgb 7.8 L (11.4-16.0) gm/dL Hct 23.4 L (34.0-46.0) % Plt Count 6 L* (150-450) k/uL Sodium 136 L (137-145) mmol/L Potassium 3.3 L (3.5-5.1) mmol/L Creatinine 0.39 L (0.52-1.04) mg/dL Glucose 156 H (74-99) mg/dL POC Glucose (mg/dL) 167 H (75-99) mg/dL Calcium 7.2 L (8.4-10.2) mg/dL Total Bilirubin 2.4 H (0.2-1.3) mg/dL AST 8 L (14-36) U/L Total Protein 5.1 L (6.3-8.2) g/dL Albumin 2.3 L (3.5-5.0) g/dL Crossmatch 05/24/19 Range/Units 11:17 WBC (3.8-10.6) k/uL RBC (3.80-5.40) m/uL Hgb (11.4-16.0) gm/dL Hct (34.0-46.0) % Plt Count (150-450) k/uL Sodium (137-145) mmol/L Potassium (3.5-5.1) mmol/L Creatinine (0.52-1.04) mg/dL Glucose (74-99) mg/dL POC Glucose (mg/dL) 198 H (75-99) mg/dL Calcium (8.4-10.2) mg/dL Total Bilirubin (0.2-1.3) mg/dL AST (14-36) U/L Total Protein (6.3-8.2) g/dL Albumin (3.5-5.0) g/dL Crossmatch Microbiology - Last 24 Hours (Table) 05/21/19 11:08 Blood Culture - Preliminary Blood No Growth after 72 hours 05/21/19 21:30 Stool Culture - Preliminary Stool 05/21/19 12:26 Blood Culture - Preliminary Blood No Growth after 48 hours Assessment and Plan Plan: Pancytopenia due to antineoplastic chemotherapy Transfusion for hemoglobin less than 7, be very conservative with transfusions. Transfuse for platelet count of less than 10,000 or if symptomatic. 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 Completed Supportive medications ordered, and sent to Pharmacy Plan for 3x a week blood draw in office next week if discharged today or over weekend. Polyarthralgia - Improved ? if r/t AML. Improved with tylenol #3, pt is now able to ambulate with bilateral leg braces and walker. D/W case wtih PT. Encouraged pt remove leg braces due to skin breakdown concerns and to evaluate pain and strength in the ankles. Encouraged her to follow PT instructions and use their support when doing therapy. Diarrhea - Improved - Chemo related. C diff neg. Occult positive, hematochezia noted. - Hgb stable today, when taken into account last transfusion as well as chemo effects. - Platelets ordered for today until stool is at least grossly negative for blood. 1 dose of DDAVP given 05/17 - Cont CBC daily. - Antidiarrheals ordered. - Add Questran Lisa infection of genital region Hypokalemia: - improved continue IV Fluids - 3.4 today Neutropenic Colitis - Bowel Rest - Topical antifungal prescribed. - Nystatin swish and swallow prophylaxic prescribed as well, QT prolon with diflucan, if further infectious fungal presents benefit of systemic antifungal out weighs risk Anorexia, Decreased PO Appetite: - Secondary to Lisa oral and AML - Marinol is on board - Unable to increase PO intable untol colitis improved Plan: Antiviral, antifungal, antibacterial prescriptions all sent to patient's [facility] in [place]. Antibiotics Compazine prescription also sent. If patient is well enough and completes therapy on time she has a CBC follow-up appt on Tuesday at 9:15 AM, she will make further appointments at that time. - Encourage patient up and out of bed - In chair all meals - encourage questran - Rec Psych eval - WBC improved, likely responding to induction - Platlets today and hopefully home tomorrow
[2019-05-24 17:01] LABS: Glucose,Whole Blood 158 mg/dL (75-99)
[2019-05-24 18:22] LABS: Mean Platelet Volume 7.9
[2019-05-24 18:26] LABS: Platelet Count 18 k/uL (150-450)
[2019-05-24 20:03] LABS: Glucose,Whole Blood 162 mg/dL (75-99)
[2019-05-24] MEDS: Acetaminophen-Codeine 300-30mg TAB PO PRN (20:26)
[2019-05-25] MEDS: 0.9% NACL WITH KCL 40 MEQ/L 1,000 ML IV SCH ×2 (05:51→12:04)
[2019-05-25 07:05] LABS: Glucose,Whole Blood 138 mg/dL (75-99)
[2019-05-25 08:09] LABS: HCT 21.7 % (34.0-46.0); HGB 7.1 gm/dL (11.4-16.0); MCH 30.5 pg (25.0-35.0); MCHC 32.8 g/dL (31.0-37.0); MCV 92.9 fL (80.0-100.0); Mean Platelet Volume 9.9; RBC 2.33 m/uL (3.80-5.40); RDW 14.6 % (11.5-15.5)
[2019-05-25 08:14] LABS: Platelet Count 10 k/uL (150-450); WBC 0.5 k/uL (3.8-10.6)
[2019-05-25] MEDS: INSULIN ASPART (NovoLOG) 100 UNIT/ML VIAL SQ SCH ×2 (08:43→13:00)
[2019-05-25 08:46] LABS: ALT 18 U/L (9-52); AST 7 U/L (14-36); African American GFR (CKD) >90 (>60 ml/min/1.73 sqM); Albumin 2.1 g/dL (3.5-5.0); Alkaline Phosphatase 64 U/L (38-126); Anion Gap 5 mmol/L; Blood Urea Nitrogen 9 mg/dL (7-17); Calcium 6.9 mg/dL (8.4-10.2); Carbon Dioxide 28 mmol/L (22-30); Chloride 104 mmol/L (98-107); Glucose 131 mg/dL (74-99); Potassium 3.4 mmol/L (3.5-5.1); Sodium 137 mmol/L (137-145); Total Bilirubin 1.7 mg/dL (0.2-1.3); Total Protein 4.7 g/dL (6.3-8.2)
[2019-05-25] MEDS: CHOLECALCIFEROL 400 UNIT TAB PO SCH (08:48)
[2019-05-25] MEDS: LISINOPRIL-HCTZ 10-12.5 MG 1 EACH TAB PO SCH (08:48)
[2019-05-25] MEDS: PRAVASTATIN SODIUM 20 MG TAB PO SCH (08:48)
[2019-05-25] MEDS: metFORMIN 500 MG TAB PO SCH (08:49)
[2019-05-25] MEDS: ACYCLOVIR 200 MG CAP PO SCH (08:49)
[2019-05-25] MEDS: ALLOPURINOL 300 MG TAB PO SCH (08:49)
[2019-05-25] MEDS: SALT AND SODA MOUTHWASH 1,000 ML PO SCH ×2 (08:50→13:06)
[2019-05-25] MEDS: METOPROLOL TARTRATE 25 MG TAB PO SCH ×2 (08:50→16:24)
[2019-05-25] MEDS: FLUCONAZOLE 100 MG TAB PO SCH (08:50)
[2019-05-25] MEDS: DRONABINOL 2.5 MG CAP PO SCH (08:50)
[2019-05-25] MEDS: NYSTATIN 100,000 UNIT/GM POWD 15 GM TOPICAL SCH (08:50)
[2019-05-25] MEDS: NYSTATIN 100,000 UNIT/ML SUSP 500,000 UNIT/5 ML CUP PO SCH ×2 (08:51→12:59)
[2019-05-25] MEDS: SENNOSIDES-DOCUSATE SODIUM 1 EACH TAB PO SCH (08:51)
[2019-05-25] MEDS: CHOLESTYRAMINE (WITH SUGAR) 4 GM PACKET PO SCH ×2 (08:51→16:20)
[2019-05-25] MEDS: CITALOPRAM HYDROBROMIDE 20 MG TAB PO SCH (08:59)
[2019-05-25] MEDS ORDERED: POTASSIUM CHLORIDE ER 20 MEQ TAB.ER PO SCH (09:00)
[2019-05-25] MEDS ORDERED: Potassium Replacement Protocol 1 EACH MISC MISCELLANE PRN (09:00)
--- NOTE | 2019-05-25 09:23 | P.PN ---
Subjective Progress Note Date: 05/25/19 Principal diagnosis: AML Supp Potassium and transfuse one unit platelets. Dicharge patient with homecare today and CBC in office tuesday. Objective - Vital Signs Vital signs: Vital Signs Temp 98.1 F 05/25/19 04:57 Pulse 107 H 05/25/19 04:57 Resp 16 05/25/19 04:57 BP 117/60 05/25/19 04:57 Pulse Ox 94 L 05/25/19 04:57 Intake & Output 05/24/19 05/25/19 05/25/19 18:59 06:59 18:59 Intake Total 198 1437.5 Balance 198 1437.5 Weight 99 kg 77.5 kg Intake: Intake, IV Titration 1437.5 Amount 0.9% NaCl with KCl 40 Meq 1437.5 /l 1,000 ml @ 125 mls/hr IV .Q8H [facility] Rx#:[id number] Blood Product 198 Platelet Irr Pheresis 2 198 Acda Unit [id number] Other: Voiding Method Bedside Commode Bedside Commode # Voids 3 # Bowel Movements 4 1 - Exam - Constitutional General appearance: Present: average body habitus, cooperative, no acute distress - EENT Eyes: Present: anicteric sclerae, EOMI ENT: Present: hearing grossly normal, normal oropharynx - Respiratory Respiratory: bilateral: CTA - Cardiovascular Rhythm: regular Heart sounds: normal: S1, S2 Abnormal Heart Sounds: Absent: systolic murmur, diastolic murmur, rub, S3 Gallop, S4 Gallop, click, other - Peripheral edema leg Peripheral Edema: bilateral: None - Gastrointestinal General gastrointestinal: Present: normal bowel sounds, soft - Genitourinary Genitourinary Comment(s): Perineal area examination whitish color and odor of yeast, suspicious for yeast infection. - Neurologic Neurologic: Present: CNII-XII intact - Musculoskeletal Musculoskeletal: Present: generalized weakness, strength equal bilaterally - Psychiatric Psychiatric: Present: A&O x's 3, appropriate affect, intact judgment & insight - Labs CBC & Chem 7: 05/25/19 07:38 05/25/19 07:38 Labs: Abnormal Lab Results - Last 24 Hours (Table) 05/21/19 05/24/19 05/24/19 Range/Units 10:49 11:17 17:00 WBC (3.8-10.6) k/uL RBC (3.80-5.40) m/uL Hgb (11.4-16.0) gm/dL Hct (34.0-46.0) % Plt Count (150-450) k/uL Potassium (3.5-5.1) mmol/L Creatinine (0.52-1.04) mg/dL Glucose (74-99) mg/dL POC Glucose (mg/dL) 198 H 158 H (75-99) mg/dL Calcium (8.4-10.2) mg/dL Total Bilirubin (0.2-1.3) mg/dL AST (14-36) U/L Total Protein (6.3-8.2) g/dL Albumin (3.5-5.0) g/dL Crossmatch See Detail 05/24/19 05/24/19 05/25/19 Range/Units 17:59 20:01 07:04 WBC (3.8-10.6) k/uL RBC (3.80-5.40) m/uL Hgb (11.4-16.0) gm/dL Hct (34.0-46.0) % Plt Count 18 L* D (150-450) k/uL Potassium (3.5-5.1) mmol/L Creatinine (0.52-1.04) mg/dL Glucose (74-99) mg/dL POC Glucose (mg/dL) 162 H 138 H (75-99) mg/dL Calcium (8.4-10.2) mg/dL Total Bilirubin (0.2-1.3) mg/dL AST (14-36) U/L Total Protein (6.3-8.2) g/dL Albumin (3.5-5.0) g/dL Crossmatch 05/25/19 05/25/19 Range/Units 07:38 07:38 WBC 0.5 L* (3.8-10.6) k/uL RBC 2.33 L (3.80-5.40) m/uL Hgb 7.1 L (11.4-16.0) gm/dL Hct 21.7 L (34.0-46.0) % Plt Count 10 L* (150-450) k/uL Potassium 3.4 L (3.5-5.1) mmol/L Creatinine 0.39 L (0.52-1.04) mg/dL Glucose 131 H (74-99) mg/dL POC Glucose (mg/dL) (75-99) mg/dL Calcium 6.9 L (8.4-10.2) mg/dL Total Bilirubin 1.7 H (0.2-1.3) mg/dL AST 7 L (14-36) U/L Total Protein 4.7 L (6.3-8.2) g/dL Albumin 2.1 L (3.5-5.0) g/dL Crossmatch Microbiology - Last 24 Hours (Table) 05/21/19 12:26 Blood Culture - Preliminary Blood No Growth after 72 hours 05/21/19 11:08 Blood Culture - Preliminary Blood No Growth after 72 hours 05/21/19 21:30 Stool Culture - Preliminary Stool Assessment and Plan Plan: Pancytopenia due to antineoplastic chemotherapy Transfusion for hemoglobin less than 7, be very conservative with transfusions. Transfuse for platelet count of less than 10,000 or if symptomatic. 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 Completed Supportive medications ordered, and sent to Pharmacy Plan for 3x a week blood draw in office next week if discharged today or over weekend. Polyarthralgia - Improved ? if r/t AML. Improved with tylenol #3, pt is now able to ambulate with bilateral leg braces and walker. D/W case [facility] PT. Encouraged pt remove leg braces due to skin breakdown concerns and to evaluate pain and strength in the ankles. Encouraged her to follow PT instructions and use their support when doing therapy. Diarrhea - Improved - Chemo related. C diff neg. Occult positive, hematochezia noted. - Hgb stable today, when taken into account last transfusion as well as chemo effects. - Platelets ordered for today until stool is at least grossly negative for blood. 1 dose of DDAVP given 05/17 - Cont CBC daily. - Antidiarrheals ordered. - Add Questran Lisa infection of genital region Hypokalemia: - improved continue IV Fluids - 3.4 today - Supp Neutropenic Colitis - Bowel Rest - Topical antifungal prescribed. - Nystatin swish and swallow prophylaxic prescribed as well, QT prolon with diflucan, if further infectious fungal presents benefit of systemic antifungal out weighs risk Anorexia, Decreased PO Appetite: - Secondary to Lisa oral and AML - Marinol is on board - Unable to increase PO intable untol colitis improved Plan: Antiviral, antifungal, antibacterial prescriptions all sent to patient's [facility] in [place]. Antibiotics Compazine prescription also sent. If patient is well enough and completes therapy on time she has a CBC follow-up appt on Tuesday at 9:15 AM, she will make further appointments at that time. - If she is tolerating PO intake and up in [facility] ok to discharge today after platlets. - CBC in office tuesday at 0930 - follow-up in office at [facility] on 1029 Utilize antiemetics increase activity Bleeding and neutropenic precautions
[2019-05-25 11:12] LABS: Glucose,Whole Blood 187 mg/dL (75-99)
[2019-05-25] MEDS: LEVOFLOXACIN 500 MG TAB PO SCH (12:03)
[2019-05-25] MEDS: POTASSIUM BICARBONATE/CIT AC 20 MEQ TABLET.EFF PO SCH ×2 (12:04→14:11)
[2019-05-25 14:14] VITALS: BMI 29.3
[2019-05-25 14:36] VITALS: RESP 18
--- NOTE | 2019-05-25 14:46 | P.PN ---
Subjective Progress Note Date: 05/25/19 Principal diagnosis: chemo Patient is a 64-year-old female patient of Dr. 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 Patient was recently admitted on 04/10/19 for multiple joint swelling and CBC abnormalities with increased blasts. She underwent bone marrow biopsy on 04/13/19 showing findings consistent with acute myeloid leukemia. Prior to admission she had a PICC line placed to receive chemothe rapy. Chemotherapy was initiated on 05/07/19 with 7+3 regimen along with allopurinol to prevent tumor lysis syndrome. Echocardiogram was done which showed ejection fraction 60-65% with diastolic filling abnormality. Patient developed pancytopenia as was anticipated with induction chemotherapy and is the desired outcome. She required 1 unit of packed red blood cells on 05/11/19. On 05/14 patient developed some diarrhea and C. diff was ordered which came back negative and this was felt to be a side effect of chemotherapy. Antidiarrheals were started. Patient's induction chemotherapy was completed on 04/24/19. Patient developed severe neutropenia, as expected from her chemotherapy and was started on prophylactic antiviral, antibacterial, antifungal therapies. No G- CSF stimulator or third secondary to this being an acute leukemia. Patient again had significant anemia on 05/15 with a hemoglobin of 6.8 and received 1 unit of packed red blood cells. On 05/16 she had severe thrombocytopenia was noted have stool for occult blood positive. She was therefore ordered 1 unit of packed red blood cells. She was also noted to have low-grade fevers along with an elevated heart rate and therefore smith cultures were ordered. Her magnesium was noted to be low at 1.4 and was replaced. Her hemoglobin was again low on 05/17 and she received an additional unit of packed red blood cells. She req uired another unit of platelets on 05/20 and another unit of blood on 05/21. Platelets were again low on 05/22 and 1 unit of platelets was ordered. Patient had significant anorexia and Marinol was ordered. Patient was tachycardic on 05/22 and metoprolol was added. On 05/23 her blood counts again low and one unit of packed red blood cells and 1 unit of platelets were ordered. Platelets were 6 on the morning of 05/24 another unit of platelets was ordered. Patient will receive 1 additional unit of plts and will be discharged per oncology. Oncology is concern that patient continues to have multiple joint pains as well as depressed mood and Celexa seems to not be effective. Discussed with patient transitioning from Celexa to Cymbalta to see if this will help with her multiple areas of joint pain, help with increasing her mood, and increased energy. Patient will need to decrease Celexa 1 week if this seems tolerated then decrease to 10 mg X 7 days and could consider transitioning to Cymbalta 30 mg daily. Patient seen and examined at bedside. No chest pain, SOB, nausea, or vomiting. Objective - Vital Signs Vital signs: Vital Signs Temp 98.1 F 05/25/19 04:57 Pulse 107 H 05/25/19 04:57 Resp 16 05/25/19 04:57 BP 117/60 05/25/19 04:57 Pulse Ox 94 L 05/25/19 04:57 Intake & Output 05/24/19 05/25/19 05/25/19 18:59 06:59 18:59 Intake Total 198 1437.5 Balance 198 1437.5 Weight 99 kg 77.5 kg Intake: Intake, IV Titration 1437.5 Amount 0.9% NaCl with KCl 40 Meq 1437.5 /l 1,000 ml @ 125 mls/hr IV .Q8H [facility] Rx#:[id number] Blood Product 198 Platelet Irr Pheresis 2 198 Acda Unit [id number] Other: Voiding Method Bedside Commode Bedside Commode # Voids 3 # Bowel Movements 4 - Exam General: non toxic, no distress, appears at stated age, obese Derm: warm, dry Head: atraumatic, normocephalic, symmetric Eyes: EOMI, no lid lag, anicteric sclera Mouth: no lip lesion, mucus membranes moist Cardiovascular: S1S2 reg, no murmur, positive posterior tibial pulse bilateral, Lungs: Decreased breath sound bilateral, no rhonchi, no rales , no accessory muscle use Abdominal: soft, nontender to palpation, no guarding, no appreciable organomegaly Ext: no gross muscle atrophy, no edema, no contractures Neuro: CN II-XI grossly intact, no focal neuro deficits Psych: Alert, oriented, appropriate affect - Labs CBC & Chem 7: 05/25/19 07:38 05/25/19 07:38 Labs: Abnormal Lab Results - Last 24 Hours (Table) 05/21/19 05/24/19 05/24/19 Range/Units 10:49 07:33 07:33 WBC 0.4 L* (3.8-10.6) k/uL RBC 2.58 L (3.80-5.40) m/uL Hgb 7.8 L (11.4-16.0) gm/dL Hct 23.4 L (34.0-46.0) % Plt Count 6 L* (150-450) k/uL Sodium 136 L (137-145) mmol/L Potassium 3.3 L (3.5-5.1) mmol/L Creatinine 0.39 L (0.52-1.04) mg/dL Glucose 156 H (74-99) mg/dL POC Glucose (mg/dL) (75-99) mg/dL Calcium 7.2 L (8.4-10.2) mg/dL Total Bilirubin 2.4 H (0.2-1.3) mg/dL AST 8 L (14-36) U/L Total Protein 5.1 L (6.3-8.2) g/dL Albumin 2.3 L (3.5-5.0) g/dL Crossmatch See Detail 05/24/19 05/24/19 05/24/19 Range/Units 11:17 17:00 17:59 WBC (3.8-10.6) k/uL RBC (3.80-5.40) m/uL Hgb (11.4-16.0) gm/dL Hct (34.0-46.0) % Plt Count 18 L* D (150-450) k/uL Sodium (137-145) mmol/L Potassium (3.5-5.1) mmol/L Creatinine (0.52-1.04) mg/dL Glucose (74-99) mg/dL POC Glucose (mg/dL) 198 H 158 H (75-99) mg/dL Calcium (8.4-10.2) mg/dL Total Bilirubin (0.2-1.3) mg/dL AST (14-36) U/L Total Protein (6.3-8.2) g/dL Albumin (3.5-5.0) g/dL Crossmatch 05/24/19 05/25/19 Range/Units 20:01 07:04 WBC (3.8-10.6) k/uL RBC (3.80-5.40) m/uL Hgb (11.4-16.0) gm/dL Hct (34.0-46.0) % Plt Count (150-450) k/uL Sodium (137-145) mmol/L Potassium (3.5-5.1) mmol/L Creatinine (0.52-1.04) mg/dL Glucose (74-99) mg/dL POC Glucose (mg/dL) 162 H 138 H (75-99) mg/dL Calcium (8.4-10.2) mg/dL Total Bilirubin (0.2-1.3) mg/dL AST (14-36) U/L Total Protein (6.3-8.2) g/dL Albumin (3.5-5.0) g/dL Crossmatch Microbiology - Last 24 Hours (Table) 05/21/19 12:26 Blood Culture - Preliminary Blood No Growth after 72 hours 05/21/19 11:08 Blood Culture - Preliminary Blood No Growth after 72 hours 05/21/19 21:30 Stool Culture - Preliminary Stool Assessment and Plan Assessment: Acute myelogenous leukemia - s/p induction chemotherapy - outpatient follow-up with Dr. Carson Polyarthralgia -Improved after chemo induction - consider transition from celexa to cymbalta Hypokalemia - repleace and recheck on Tuesday along with CBC Diabetes mellitus with hyperglycemia - blood sugars improved continue metformin at discharge Pancytopenia -s/p multiple units of pRBC and plts - still with anemia, thrombocytopenia, and WBC Neutropenic colitis -Continue with nystatin, Diflucan -Was on bowel rest with clear liquid diet -Antidiarrheals, Questran, RX sent to pharmacy Lisa intertrigo, and oral candidiasis associated with anorexia -Nystatin swish and swallow Hyperbilirubinemia - likely related to chemo Hypertension and chronic tachycardia - metoprolol - follow BP Severe protein calorie malnutrition with anorexi - Supplements - Deititian recs Dyslipidemia - statin D/W oncology and plan is discharge today.
--- NOTE | 2019-05-25 14:52 | P.DS ---
Providers Date of admission: 05/07/19 07:43 Expected date of discharge: 05/25/19 Attending physician: Francisco Carson Consults: 05/07/19 08:21 Consult Physician Routine Consulting Provider: Chris Galeana Consult Reason/Comments: medical management Do you want consulting provider notified?: Yes Primary care physician: [facility] Course: Induction chemotherapy for AML Pertinent Studies: CBC, CMP, MAg Patient Condition at Discharge: Fair Plan - Discharge Summary Discharge Rx Participant: No New Discharge Prescriptions: New Metoprolol Tartrate [Lopressor] 25 mg PO TID #75 tab Potassium Chloride Oral Liquid 20 meq PO DAILY 10 Days #200 ml Cholestyramine (with Sugar) [Questran Packet] 4 gm PO 1000,1500,1800,2300 #120 packet Petrolatum, White [Aquaphor] 1 applic TOPICAL QID PRN applic PRN Reason: Dry Skin Prochlorperazine [Compazine] 10 mg PO Q6H PRN #45 tab PRN Reason: nausea Fluconazole [Diflucan] 100 mg PO DAILY tab Loperamide [Imodium] 2 mg PO QID PRN #30 cap PRN Reason: Diarrhea Levofloxacin [Levaquin] 500 mg PO Q24H #30 tab Metoprolol Tartrate [Lopressor] 25 mg PO TID tab Dronabinol [Marinol] 2.5 mg PO AC-BID #60 cap Nystatin 100,000 Unit/ml Susp [Mycostatin Oral Susp] 500,000 unit PO QID cup Nystatin 100,000 Unit/gm Powd [Mycostatin Powder] 1 applic TOPICAL BID applic Cholestyramine (with Sugar) [Questran Packet] 4 gm PO 1000,1500,1800,2300 #30 packet Acyclovir [Zovirax] 400 mg PO BID #60 ml Allopurinol [Zyloprim] 300 mg PO DAILY tab Continue diphenhydrAMINE [Benadryl] 25 mg PO HS PRN PRN Reason: Shortness Of Breath Lisinopril-Hctz 10-12.5 mg [Zestoretic 10-12.5] 1 tab PO DAILY Pravastatin Sodium [Pravachol] 10 mg PO DAILY Cholecalciferol [Vitamin D3] 400 unit PO DAILY tab metFORMIN HCL [Glucophage] 500 mg PO BID Acetaminophen-Codeine 300-30mg [Tylenol w/codeine #3] 1 tab PO Q6H PRN PRN Reason: Pain Methocarbamol [Robaxin] 500 - 1,000 mg PO Q8H PRN PRN Reason: Pain Changed Citalopram Hydrobromide [Citalopram HBr] 20 mg PO DAILY #0 Discontinued Acetaminophen Tab [Tylenol] 650 mg PO Q6HR PRN tab PRN Reason: Mild Pain Or Fever > 100.5 Naproxen Sodium [Aleve] 220 mg PO BID Discharge Medication List Lisinopril-Hctz 10-12.5 mg [Zestoretic 10-12.5] 1 tab PO DAILY 04/06/19 [History] Pravastatin Sodium [Pravachol] 10 mg PO DAILY 04/06/19 [History] diphenhydrAMINE [Benadryl] 25 mg PO HS PRN 04/06/19 [History] Cholecalciferol [Vitamin D3] 400 unit PO DAILY tab 04/14/19 [Rx] Acetaminophen-Codeine 300-30mg [Tylenol w/codeine #3] 1 tab PO Q6H PRN 05/07/19 [History] Methocarbamol [Robaxin] 500 - 1,000 mg PO Q8H PRN 05/07/19 [History] metFORMIN HCL [Glucophage] 500 mg PO BID 05/07/19 [History] Acyclovir [Zovirax] 400 mg PO BID #60 ml 05/25/19 [Rx] Allopurinol [Zyloprim] 300 mg PO DAILY tab 05/25/19 [Rx] Cholestyramine (with Sugar) [Questran Packet] 4 gm PO 1000,1500,1800,2300 #120 packet 05/25/19 [Rx] Cholestyramine (with Sugar) [Questran Packet] 4 gm PO 1000,1500,1800,2300 #30 packet 05/25/19 [Rx] Citalopram Hydrobromide [Citalopram HBr] 20 mg PO DAILY #0 05/25/19 [Rx] Dronabinol [Marinol] 2.5 mg PO AC-BID #60 cap 05/25/19 [Rx] Fluconazole [Diflucan] 100 mg PO DAILY tab 05/25/19 [Rx] Levofloxacin [Levaquin] 500 mg PO Q24H #30 tab 05/25/19 [Rx] Loperamide [Imodium] 2 mg PO QID PRN #30 cap 05/25/19 [Rx] Metoprolol Tartrate [Lopressor] 25 mg PO TID tab 05/25/19 [Rx] Metoprolol Tartrate [Lopressor] 25 mg PO TID #75 tab 05/25/19 [Rx] Nystatin 100,000 Unit/gm Powd [Mycostatin Powder] 1 applic TOPICAL BID applic 05/25/19 [Rx] Nystatin 100,000 Unit/ml Susp [Mycostatin Oral Susp] 500,000 unit PO QID cup 05/25/19 [Rx] Petrolatum, White [Aquaphor] 1 applic TOPICAL QID PRN applic 05/25/19 [Rx] Potassium Chloride Oral Liquid 20 meq PO DAILY 10 Days #200 ml 05/25/19 [Rx] Prochlorperazine [Compazine] 10 mg PO Q6H PRN #45 tab 05/25/19 [Rx] Follow up Appointment(s)/Referral(s): Francisco Carson MD [STAFF PHYSICIAN] - 05/31/19 10:45 am ([address] [facility]) Kat Fox MD [Primary Care Provider] - 1 Week Ileana Good NPC [Nurse Practitioner] - 05/28/19 9:30 am (Blood draw CBC and CMP) [facility] Visiting Nurse, [NON-STAFF] - 1-2 Days Ambulatory/Diagnostic Orders: Complete Blood Count w/diff [LAB.AMB] Location: None Selected Comprehensive Metabolic Panel [LAB.AMB] Location: None Selected Magnesium [LAB.AMB] Location: None Selected Patient Instructions/Handouts: Hypokalemia (DC), Hypokalemia (GEN), Acute Myeloid Leukemia (DC), Acute Myeloid Leukemia (GEN), Neutropenic Precautions (GEN), Thrombocytopenia (ED), Thrombocytopenia (DC), Thrombocytopenia (GEN), Pancytopenia (DC), Pancytopenia (GEN) Activity/Diet/Wound Care/Special Instructions: Pt needs indigent funds at discharge Decrease Celexa to half tablet daily 7 days. Then follow with Dr. Fox in need to be initiated on Cymbalta.
[2019-05-25 16:22] VITALS: BP 121/72; PULSE 99; TEMP 98.1
[2019-05-25] MEDS ORDERED: ACYCLOVIR 400 MG/10 ML CUP PO SCH (21:00)
== END 2019-05-25 17:30 | disposition home health service (06) | DRG 837 ==
LOC: UNDOADMIN 07:37 → 2ORMAIN 07:37 → 3NMEDONC 07:43
PROVIDERS: ADMIT Internal Medicine Hematology & Oncology; ATTEND Internal Medicine Hematology & Oncology
PROC: 02HV33Z Insertion of Infusion Device into Superior Vena Cava, Percutaneous Approach (ICD-10-PCS; 2019-05-07)
PROC: XW043B3 Introduction of Cytarabine and Daunorubicin Liposome Antineoplastic into Central Vein, Percutaneous Approach, New Technology Group 3 (ICD-10-PCS; principal; 2019-05-07 09:26)
DX: Z51.11 Encounter for antineoplastic chemotherapy (principal); D61.810 Antineoplastic chemotherapy induced pancytopenia; C92.50 Acute myelomonocytic leukemia, not having achieved remission; E43 Unspecified severe protein-calorie malnutrition; B37.0 Candidal stomatitis; B37.49 Other urogenital candidiasis; R17 Unspecified jaundice; E11.65 Type 2 diabetes mellitus with hyperglycemia; B37.2 Candidiasis of skin and nail; D63.0 Anemia in neoplastic disease; E78.5 Hyperlipidemia, unspecified; E87.6 Hypokalemia; M25.50 Pain in unspecified joint; F32.9 Major depressive disorder, single episode, unspecified; G89.29 Other chronic pain; I10 Essential (primary) hypertension; K59.00 Constipation, unspecified; T45.1X5A Adverse effect of antineoplastic and immunosuppressive drugs, initial encounter; M79.632 Pain in left forearm; K52.89 Other specified noninfective gastroenteritis and colitis; R11.0 Nausea; R00.0 Tachycardia, unspecified; E66.9 Obesity, unspecified; Z68.29 Body mass index [BMI] 29.0-29.9, adult; Z79.84 Long term (current) use of oral hypoglycemic drugs; Z79.899 Other long term (current) drug therapy; Z91.040 Latex allergy status
CPT/HCPCS: 36573; 71046; 80048; 80053; 81001; 81003; 82272; 83036; 83630; 83735; 83993; 84100; 84550; 85025; 85027; 85049; 85610; 85730; 86850; 86900; 86901; 86920; 87040; 87045; 87046; 87086; 87324; 93005; 93306

== ENCOUNTER 2019-06-07 11:16 | Day surgery (SDC) | payer MEDICARE ==
[2019-06-06 08:38] VITALS: BMI 36.7
[~2019-06-07 11:16] MED LIST: LACTATED RINGERS 1,000 ML IV SCH
[2019-06-07 11:55] VITALS: TEMP 97.4
[2019-06-07 12:12] LABS: Glucose,Whole Blood 94 mg/dL (75-99)
[2019-06-07] MEDS ORDERED: PROPOFOL 10 MG/ML 20 ML VIAL IV ONE (12:38)
--- NOTE | 2019-06-07 13:08 | P.PCN ---
Date of Procedure: 06/07/19 Preoperative Diagnosis: AML, s/p induction Postoperative Diagnosis: Same Procedure(s) Performed: Bone marrow aspiration and biopsy Anesthesia: MAC Surgeon: Francisco Carson Stave Log Ripsaw Operator #1: Stated None Pathology: other Condition: stable Disposition: same day Indications for Procedure: Acute myeloid leukemia, status post induction chemotherapy. Procedure done to evaluate response Operative Findings: Adequate samples Description of Procedure: The procedure was discussed in detail with the patient in the office. She presented to the outpatient endoscopy suite where IV access and informed consent obtained. She was then placed in the left lateral decubitus position. The area over both posterior hilar crest was cleaned and prepped with chlorhexidine and sterile draping. IV sedation was then initiated. Local anesthesia was admin istered with lidocaine to the right posterior hilar crest. A Jamshidi needle was then inserted and bone marrow aspirate and biopsy obtained. The initial biopsy sample was small due to which additional past was made with larger sample obtained. On withdrawal of the needle hemostasis was easily achieved. Blood loss was minimal and recovery from sedation of satisfactory. She appeared to have tolerated the procedure well without any obvious immediate complications.
[2019-06-07 14:00] VITALS: BP 144/83; PULSE 80; RESP 18
[2019-06-07 14:04] LABS: Anisocytosis Slight; Basophils % (A) 0 %; Eosinophils % (A) 1 %; HCT 28.2 % (34.0-46.0); Hypochromasia Slight; Lymphocytes # (A) 1.1 k/uL (1.0-4.8); Lymphocytes % (A) 19 %; MCH 30.4 pg (25.0-35.0); MCHC 31.5 g/dL (31.0-37.0); MCV 96.6 fL (80.0-100.0); Macrocytosis Slight; Mean Platelet Volume 7.6; Monocytes # (A) 0.1 k/uL (0-1.0); Monocytes % (A) 2 %; Neutrophils # (A) 4.2 k/uL (1.3-7.7); Neutrophils % (A) 75 %; RBC 2.92 m/uL (3.80-5.40); RDW 17.8 % (11.5-15.5); Reticulocyte % 6.3 % (0.5-2.0); WBC 5.7 k/uL (3.8-10.6)
[2019-06-07 14:06] LABS: HGB 8.9 gm/dL (11.4-16.0); Platelet Count 352 k/uL (150-450)
== END 2019-06-07 14:12 | disposition home or self-care (01) ==
LOC: OR 11:16
PROVIDERS: ATTEND Internal Medicine Hematology & Oncology
DX: C92.00 Acute myeloblastic leukemia, not having achieved remission (principal); Z92.21 Personal history of antineoplastic chemotherapy; I10 Essential (primary) hypertension; E78.5 Hyperlipidemia, unspecified; E11.9 Type 2 diabetes mellitus without complications; M19.90 Unspecified osteoarthritis, unspecified site; Z79.84 Long term (current) use of oral hypoglycemic drugs; Z79.899 Other long term (current) drug therapy; Z79.891 Long term (current) use of opiate analgesic; Z91.040 Latex allergy status
CPT/HCPCS: 38222; 85025; 85045; J2704

== ENCOUNTER 2019-06-29 16:59 | Inpatient (IN) | payer MEDICARE ==
[2019-06-29 18:11] LABS: Albumin 3.7 g/dL (3.5-5.0); Calcium 9.5 mg/dL (8.4-10.2); Potassium 4.3 mmol/L (3.5-5.1); Total Bilirubin 0.8 mg/dL (0.2-1.3); Total Protein 7.2 g/dL (6.3-8.2)
--- NOTE | 2019-06-29 18:26 | CT ---
EXAMINATION TYPE: CT thor lumbar spine wo con DATE OF EXAM: 06/29/2019 COMPARISON: None HISTORY: weakness and pain. History of cancer. CT DLP: 1638.8 mGycm Automated exposure control for dose reduction was used. FINDINGS: Multiple axial sections were obtained from T1 to S3 vertebra without contrast. There is a mild thoracolumbar levoscoliosis. There is mild narrowing of thoracic and lumbar disc spac es. There is no compression fracture. I see no focal bone destruction. There is hypertrophic degenera tive spur formation throughout the thoracic and lumbar spine. There is posterior calcified disc herni ation at L4-5 L5-S1. I see no evidence of lumbar spinal stenosis. There is no thoracic paraspinal mas s. The posterior elements are intact. Sacroiliac joints appear intact. IMPRESSION: MILD MULTILEVEL SPONDYLOTIC CHANGES. NO COMPRESSION FRACTURE. NO FOCAL BONE DESTRUCTION. NO SIGN OF S ADDISON STENOSIS.
[2019-06-29 18:27] LABS: Anisocytosis Slight; Macrocytosis Slight
--- NOTE | 2019-06-29 18:51 | ED ---
Weakness HPI - General Chief complaint: Recheck/Abnormal Lab/Rx Stated complaint: leukemia Source: EMS Mode of arrival: EMS Limitations: no limitations - History of Present Illness Initial comments: The patient is a 64-year-old female who presents to the emergency department as a transfer from [facility]. The patient reportedly has had generalized weakness with lower extremity edema over the past several days. Because this today going to The hospital for evaluation. It was there that laboratory studies were drawn the patient's white blood cell count was 78,000. The patient does have a history of AML. She did receive chemo at the end of April. states that her white blood cell count returned normal and therefore no further chemo was planned at this time. They were going to follow up with the [facility] in [place] to see the patient should have a bone marrow transplant. She has been feeling well up until the past several days. She states that the lower extremity swelling was the same symptom she had when she was diagnosed with AML. She denies any abnormal bruising or bleeding. There is no confusion from the patient. She denies a history of DVT or PEs. No history of blood clotting disorders. Does not use any exogenous hormones. No recent travel or surgeries. She denies a history of congestive heart failure. No shortness of breath or chest pain. No reported fevers or chills. No nausea or vomiting. Patient denies any changes in her urination to include dysuria, hematuria or difficulty voiding. She does report to lumbar back pain. Denies any weakness in her lower extremities. No numbness or tingling. There are no other alleviating, precipitating or modifying factors - Related Data Home Medications Medication Instructions Recorded Confirmed Acetaminophen-Codeine 300-30mg 1 tab PO Q6H PRN 05/07/19 06/29/19 [Tylenol w/codeine #3] ALPRAZolam [Xanax] 0.25 mg PO Q8HR PRN 06/29/19 06/29/19 Potassium Chloride Oral Liquid 40 meq PO DAILY 06/29/19 06/29/19 Previous Rx's Medication Instructions Recorded Acyclovir [Zovirax] 400 mg PO BID #60 ml 05/25/19 Citalopram Hydrobromide 20 mg PO DAILY #0 05/25/19 [Citalopram HBr] Dronabinol [Marinol] 2.5 mg PO AC-BID #60 cap 05/25/19 Loperamide [Imodium] 2 mg PO QID PRN #30 cap 05/25/19 Metoprolol Tartrate [Lopressor] 25 mg PO TID #75 tab 05/25/19 Prochlorperazine [Compazine] 10 mg PO Q6H PRN #45 tab 05/25/19 Allergies Allergy/AdvReac Type Severity Reaction Status Date / Time latex Allergy Rash/Hives Verified 06/29/19 17:43 Review of Systems ROS Statement: Those systems with pertinent positive or pertinent negative responses have been documented in the HPI. ROS Other: All systems not noted in ROS Statement are negative. Past Medical History Past Medical History: Cancer, Diabetes Mellitus, Hyperlipidemia, Hypertension Additional Past Medical History / Comment(s): AML diagnosed 03/2019. chemo 05/07/2019 History of Any Multi-Drug Resistant Organisms: None Reported Past Surgical History: No Surgical Hx Reported Additional Past Surgical History / Comment(s): picc line. bone marrow bx Past Anesthesia/Blood Transfusion Reactions: No Reported Reaction Past Psychological History: No Psychological Hx Reported Smoking Status: Never smoker - Past Family History Mother Family Medical History: Cancer General Exam Limitations: no limitations General appearance: alert, in no apparent distress Head exam: Present: atraumatic, normocephalic, normal inspection Eye exam: Present: normal appearance, PERRL, EOMI. Absent: scleral icterus, conjunctival injection, periorbital swelling ENT exam: Present: normal exam, mucous membranes moist Neck exam: Present: normal inspection. Absent: tenderness, meningismus, lymphadenopathy Respiratory exam: Present: normal lung sounds bilaterally. Absent: respiratory distress, wheezes, rales, rhonchi, stridor Cardiovascular Exam: Present: normal rhythm, tachycardia, normal heart sounds. Absent: systolic murmur, diastolic murmur, rubs, gallop, clicks GI/Abdominal exam: Present: soft, normal bowel sounds. Absent: distended, tenderness, guarding, rebound, rigid Extremities exam: Present: normal inspection, full ROM, normal capillary refill. Absent: tenderness, pedal edema, joint swelling, calf tenderness Back exam: Present: normal inspection Neurological exam: Present: alert, oriented X3, CN II-XII intact Psychiatric exam: Present: normal mood, flat affect Skin exam: Present: warm, dry, intact, normal color. Absent: rash Course Vital Signs 06/29/19 06/29/19 17:16 20:51 Temperature 97.8 F 98.4 F Pulse Rate 104 H 110 H Respiratory 20 20 Rate Blood Pressure 142/77 170/87 O2 Sat by Pulse 98 98 Oximetry EKG Findings - EKG Comments: EKG Findings:: EKG demonstrates a sinus tachycardia with a ventricular rate of 109. CT interval 114. QRS is 68. QTC of 484. Medical Decision Making - Medical Decision Making Upon arrival the patient is placed in room 5. She is hooked up to continuous pulse ox and cardiac monitoring. A thorough history and physical exam was performed. I did review the patient's transfer record. I did repeat a CBC and a CMP. I did recommend lower extremity Dopplers as the patient does have new onset swelling with a history of cancer. I also recommended a CT the patient's thoracic and lumbar spine as she is reporting back pain. The patient does agree to this. Upon return results are reviewed and discussed the patient. Her with blood cell count is 71,000 from 5000 when she left the hospital in May. The patient's hemoglobin and platelets do appear at baseline. Lower extremity Dopplers are negative for DVT. CT of the patient's thoracic and lumbar spine d emonstrates no acute findings. Because of the patient's significantly elevated with blood cell count I did recommend admission to the hospital for which the patient did agree. I did call discuss case with Dr. Mueller who did accept admission for the patient. I did call and discuss the case with Dr. Arora. He does agree to the consult. Orders were placed and the patient was transported to floor - Lab Data Result diagrams: 07/02/19 07:10 07/02/19 07:10 Lab Results 06/29/19 06/29/19 06/29/19 Range/Units 17:45 17:45 17:45 WBC 33.9 H (3.8-10.6) k/uL RBC 2.60 L (3.80-5.40) m/uL Hgb 8.2 L (11.4-16.0) gm/dL Hct 24.5 L (34.0-46.0) % MCV 94.3 (80.0-100.0) fL MCH 31.6 (25.0-35.0) pg MCHC 33.5 (31.0-37.0) g/dL RDW 19.7 H (11.5-15.5) % Plt Count 13 L* D (150-450) k/uL Neutrophils % (Manual) % Band Neutrophils % % Lymphocytes % (Manual) % Monocytes % (Manual) % Blast Cells % % Neutrophils # (Manual) (1.3-7.7) k/uL Lymphocytes # (Manual) (1.0-4.8) k/uL Monocytes # (Manual) (0-1.0) k/uL Blast Cells # (Man) (0) k/uL Nucleated RBCs (0-0) /100 WBC Differential Comment Manual Slide Review Polychromasia Hypochromasia (manual) Poikilocytosis (manual Anisocytosis Slight Anisocytosis (manual) Macrocytosis Slight Stomatocytes Sodium 136 L (137-145) mmol/L Potassium 4.3 (3.5-5.1) mmol/L Chloride 100 (98-107) mmol/L Carbon Dioxide 29 (22-30) mmol/L Anion Gap 7 mmol/L BUN 20 H (7-17) mg/dL Creatinine 1.14 H (0.52-1.04) mg/dL Est GFR (CKD-EPI)AfAm 59 (>60 ml/min/1.73 sqM) Est GFR (CKD-EPI)NonAf 51 (>60 ml/min/1.73 sqM) Glucose 100 H (74-99) mg/dL Plasma Lactic Acid Myke 1.1 (0.7-2.0) mmol/L Calcium 9.5 (8.4-10.2) mg/dL Total Bilirubin 0.8 (0.2-1.3) mg/dL AST 36 (14-36) U/L ALT 12 (9-52) U/L Alkaline Phosphatase 84 (38-126) U/L NT-Pro-B Natriuret Pep pg/mL Total Protein 7.2 (6.3-8.2) g/dL Albumin 3.7 (3.5-5.0) g/dL 06/29/19 06/29/19 Range/Units 17:45 18:40 WBC 71.2 H* (3.8-10.6) k/uL RBC 2.93 L (3.80-5.40) m/uL Hgb 9.3 L (11.4-16.0) gm/dL Hct 28.1 L (34.0-46.0) % MCV 95.9 (80.0-100.0) fL MCH 31.9 (25.0-35.0) pg MCHC 33.2 (31.0-37.0) g/dL RDW 20.6 H (11.5-15.5) % Plt Count 114 L D (150-450) k/uL Neutrophils % (Manual) 10 % Band Neutrophils % 2 % Lymphocytes % (Manual) 8 % Monocytes % (Manual) 43 % Blast Cells % 39 H* % Neutrophils # (Manual) 8.50 H (1.3-7.7) k/uL Lymphocytes # (Manual) 5.70 H (1.0-4.8) k/uL Monocytes # (Manual) 30.62 H (0-1.0) k/uL Blast Cells # (Man) 27.77 H (0) k/uL Nucleated RBCs 0 (0-0) /100 WBC Differential Comment Manual Slide Review Performed Polychromasia Present Hypochromasia (manual) Not Reportable Poikilocytosis (manual Present Anisocytosis Moderate Anisocytosis (manual) Not Reportable Macrocytosis Slight Stomatocytes Present Sodium (137-145) mmol/L Potassium (3.5-5.1) mmol/L Chloride (98-107) mmol/L Carbon Dioxide (22-30) mmol/L Anion Gap mmol/L BUN (7-17) mg/dL Creatinine (0.52-1.04) mg/dL Est GFR (CKD-EPI)AfAm (>60 ml/min/1.73 sqM) Est GFR (CKD-EPI)NonAf (>60 ml/min/1.73 sqM) Glucose (74-99) mg/dL Plasma Lactic Acid Myke (0.7-2.0) mmol/L Calcium (8.4-10.2) mg/dL Total Bilirubin (0.2-1.3) mg/dL AST (14-36) U/L ALT (9-52) U/L Alkaline Phosphatase (38-126) U/L NT-Pro-B Natriuret Pep 1840 pg/mL Total Protein (6.3-8.2) g/dL Albumin (3.5-5.0) g/dL Disposition Clinical Impression: 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
[2019-06-29 18:56] LABS: Anisocytosis Moderate; HCT 28.1 % (34.0-46.0); HGB 9.3 gm/dL (11.4-16.0); MCH 31.9 pg (25.0-35.0); MCHC 33.2 g/dL (31.0-37.0); MCV 95.9 fL (80.0-100.0); Macrocytosis Slight; Mean Platelet Volume 7.3; RBC 2.93 m/uL (3.80-5.40); RDW 20.6 % (11.5-15.5)
[2019-06-29 19:03] LABS: Platelet Count 114 k/uL (150-450); WBC 71.2 k/uL (3.8-10.6)
[2019-06-29 19:58] LABS: Band Neutrophils % 2 %
[2019-06-29 19:59] LABS: Nucleated Red Blood Cells 0 /100 WBC (0-0); Poikilocytosis (M) Present; Polychromasia Present; Total Cells Counted 200
[2019-06-29 20:00] LABS: Stomatocytes Present
[2019-06-29] MEDS ORDERED: NALOXONE 0.4 MG/ML 1 ML VIAL IV PRN (20:19)
[2019-06-29] MEDS ORDERED: LOPERAMIDE 2 MG CAP PO PRN (20:23)
[2019-06-29] MEDS ORDERED: PROCHLORPERAZINE 10 MG TAB PO PRN (20:23)
[2019-06-29] MEDS ORDERED: ALPRAZolam 0.25 MG TAB PO PRN (20:23)
--- NOTE | 2019-06-29 20:56 | US ---
EXAMINATION TYPE: US venous doppler duplex LE BI DATE OF EXAM: 06/29/2019 5:33 PM COMPARISON: NONE CLINICAL HISTORY: Pain. Edema bilateral legs since yesterday SIDE PERFORMED: Bilateral TECHNIQUE: The lower extremity deep venous system is examined utilizing real time linear array sonog eduardo with graded compression, doppler sonography and color-flow sonography. VESSELS IMAGED: External Iliac Vein (EIV) Common Femoral Vein Deep Femoral Vein Greater Saphenous Vein * Femoral Vein Popliteal Vein Small Saphenous Vein * Proximal Calf Veins (* superficial vessels) Right Leg: No evidence of DVT. Probable Chapa's cyst right popliteal fossa = 2.7 x 0.5 x 0.8cm Left Leg: No evidence of DVT IMPRESSION: No evidence of deep venous thrombosis in both legs. Small right-sided popliteal cyst noted.
[2019-06-29] MEDS: ACYCLOVIR 200 MG CAP PO SCH (21:40)
[2019-06-29] MEDS: METOPROLOL TARTRATE 25 MG TAB PO SCH (21:40)
[2019-06-30] MEDS: Acetaminophen-Codeine 300-30mg TAB PO PRN ×3 (02:06→21:55)
[2019-06-30 07:02] LABS: Glucose,Whole Blood 111 mg/dL (75-99)
[2019-06-30] MEDS: POTASSIUM BICARBONATE/CIT AC 20 MEQ TABLET.EFF PO SCH (09:09)
[2019-06-30] MEDS: DRONABINOL 2.5 MG CAP PO SCH ×2 (09:10→16:56)
[2019-06-30] MEDS: ACYCLOVIR 200 MG CAP PO SCH ×2 (09:10→21:55)
[2019-06-30] MEDS: CITALOPRAM HYDROBROMIDE 20 MG TAB PO SCH (09:10)
[2019-06-30] MEDS: METOPROLOL TARTRATE 25 MG TAB PO SCH ×3 (09:10→21:54)
[2019-06-30 09:16] LABS: Anisocytosis Moderate; HCT 27.2 % (34.0-46.0); HGB 8.8 gm/dL (11.4-16.0); MCH 31.9 pg (25.0-35.0); MCHC 32.3 g/dL (31.0-37.0); MCV 98.7 fL (80.0-100.0); Macrocytosis Moderate; Mean Platelet Volume 7.5; RBC 2.75 m/uL (3.80-5.40); RDW 20.5 % (11.5-15.5); WBC 45.3 k/uL (3.8-10.6)
[2019-06-30 09:27] LABS: Calcium 9.1 mg/dL (8.4-10.2)
[2019-06-30 09:41] LABS: Potassium 3.7 mmol/L (3.5-5.1)
[2019-06-30 11:36] VITALS: BMI 31.4
[2019-06-30 12:41] LABS: Uric Acid 13.3 mg/dL (3.7-7.4)
[2019-06-30 12:44] LABS: Anisocytosis Slight; HCT 27.5 % (34.0-46.0); HGB 8.8 gm/dL (11.4-16.0); MCH 30.8 pg (25.0-35.0); MCHC 32.1 g/dL (31.0-37.0); MCV 95.8 fL (80.0-100.0); Macrocytosis Slight; Mean Platelet Volume 7.3; RBC 2.87 m/uL (3.80-5.40); RDW 19.4 % (11.5-15.5); WBC 46.7 k/uL (3.8-10.6)
[2019-06-30 12:46] LABS: D-Dimer 0.53 mg/L FEU (<0.60); INR 1.1 (<1.2); Partial Thromboplastin Time 23.8 sec (22.0-30.0)
[2019-06-30 12:53] LABS: Platelet Count 96 k/uL (150-450)
[2019-06-30 13:03] LABS: Glucose,Whole Blood 121 mg/dL (75-99)
[2019-06-30 14:05] LABS: Platelet Count 95 k/uL (150-450)
--- NOTE | 2019-06-30 14:23 | P.HPIM ---
History of Present Illness H&P Date: 06/30/19 Mey Hernandez, she is a 64-year-old female was known history of AML who presented to [facility] as a transfer from [facility] due to severe weakness and bilateral lower extremity edema, symptoms started about 7 days ago and has been worsening, she was evaluated in the emergency room, bilateral lower extremity Doppler was negative for DVT, blood culture and urine cultures were ordered, white blood count was significantly elevated at 71,000, she was admitted to medical floor and the oncology consultation was requested. Patient was also complaining of lower back pain computed tomography scan of the thoracic spine and the lumbar spine was done and did not reveal any acute abnormality. Past Medical History Past Medical History: Cancer, Diabetes Mellitus, Hyperlipidemia, Hypertension Additional Past Medical History / Comment(s): AML diagnosed 03/2019. chemo 05/07/2019 History of Any Multi-Drug Resistant Organisms: None Reported Past Surgical History: No Surgical Hx Reported Additional Past Surgical History / Comment(s): picc line. bone marrow bx Past Anesthesia/Blood Transfusion Reactions: No Reported Reaction Past Psychological History: No Psychological Hx Reported Smoking Status: Never smoker - Past Family History Mother Family Medical History: Cancer Medications and Allergies Home Medications Medication Instructions Recorded Confirmed Type Acetaminophen-Codeine 300-30mg 1 tab PO Q6H PRN 05/07/19 06/29/19 History [Tylenol w/codeine #3] Acyclovir [Zovirax] 400 mg PO BID #60 ml 05/25/19 06/29/19 Rx Citalopram Hydrobromide 20 mg PO DAILY #0 05/25/19 06/29/19 Rx [Citalopram HBr] Dronabinol [Marinol] 2.5 mg PO AC-BID #60 cap 05/25/19 06/29/19 Rx Loperamide [Imodium] 2 mg PO QID PRN #30 cap 05/25/19 06/29/19 Rx Metoprolol Tartrate [Lopressor] 25 mg PO TID #75 tab 05/25/19 06/29/19 Rx Prochlorperazine [Compazine] 10 mg PO Q6H PRN #45 tab 05/25/19 06/29/19 Rx ALPRAZolam [Xanax] 0.25 mg PO Q8HR PRN 06/29/19 06/29/19 History Potassium Chloride Oral Liquid 40 meq PO DAILY 06/29/19 06/29/19 History Allergies Allergy/AdvReac Type Severity Reaction Status Date / Time latex Allergy Rash/Hives Verified 06/29/19 17:43 Physical Exam Vitals: Vital Signs Temp Pulse Pulse Resp BP BP Pulse Ox 06/30/19 05:18 97.9 F 106 H 18 152/72 96 06/29/19 20:51 98.4 F 110 H 20 170/87 98 06/29/19 17:16 97.8 F 104 H 20 142/77 98 Intake and Output 06/29/19 06/30/19 06/30/19 22:59 06:59 14:59 Other: Voiding Method Bedpan Bedpan # Voids 1 1 Weight 83.007 kg 83.007 kg In general patient is alert and oriented 3 in no apparent distress HEENT head normocephalic and atraumatic Neck is supple no JVD no goiter no lymphadenopathy Chest exam reveals a few scattered crackles no wheezing Cardiac exam reveals regular heart sounds S1 and S2 no gallops no murmurs Abdomen is soft nontender no organomegaly with normal bowel sounds Extremity exam reveals 2+ edema no cyanosis or clubbing Neurological examination reveals generalized weakness without any focal neuro logical deficit Results CBC & Chem 7: 06/30/19 12:02 06/30/19 08:33 Labs: Abnormal Lab Results - Last 24 Hours (Table) 06/29/19 06/29/19 06/29/19 Range/Units 17:45 17:45 18:40 WBC 33.9 H 71.2 H* (3.8-10.6) k/uL RBC 2.60 L 2.93 L (3.80-5.40) m/uL Hgb 8.2 L 9.3 L (11.4-16.0) gm/dL Hct 24.5 L 28.1 L (34.0-46.0) % RDW 19.7 H 20.6 H (11.5-15.5) % Plt Count 13 L* D 114 L D (150-450) k/uL Sodium 136 L (137-145) mmol/L BUN 20 H (7-17) mg/dL Creatinine 1.14 H (0.52-1.04) mg/dL Glucose 100 H (74-99) mg/dL POC Glucose (mg/dL) (75-99) mg/dL Uric Acid (3.7-7.4) mg/dL Lactate Dehydrogenase (313-618) U/L 06/30/19 06/30/19 06/30/19 Range/Units 07:01 08:33 12:02 WBC 45.3 H (3.8-10.6) k/uL RBC 2.75 L (3.80-5.40) m/uL Hgb 8.8 L (11.4-16.0) gm/dL Hct 27.2 L (34.0-46.0) % RDW 20.5 H (11.5-15.5) % Plt Count 95 L (150-450) k/uL Sodium (137-145) mmol/L BUN (7-17) mg/dL Creatinine (0.52-1.04) mg/dL Glucose (74-99) mg/dL POC Glucose (mg/dL) 111 H (75-99) mg/dL Uric Acid 13.3 H (3.7-7.4) mg/dL Lactate Dehydrogenase 750 H (313-618) U/L 06/30/19 06/30/19 Range/Units 12:02 13:02 WBC 46.7 H (3.8-10.6) k/uL RBC 2.87 L (3.80-5.40) m/uL Hgb 8.8 L (11.4-16.0) gm/dL Hct 27.5 L (34.0-46.0) % RDW 19.4 H (11.5-15.5) % Plt Count (150-450) k/uL Sodium (137-145) mmol/L BUN (7-17) mg/dL Creatinine (0.52-1.04) mg/dL Glucose (74-99) mg/dL POC Glucose (mg/dL) 121 H (75-99) mg/dL Uric Acid (3.7-7.4) mg/dL Lactate Dehydrogenase (313-618) U/L Thrombosis Risk Factor Assmnt - Choose All That Apply Any of the Below Risk Factors Present?: Yes Each Factor Represents 1 point: Medical pt on bed rest, Obesity (BMI >25) Each Risk Factor Represents 2 Points: Age 61-74 years Thrombosis Risk Factor Assessment Total Risk Factor Score: 4 Thrombosis Risk Factor Assessment Level: Moderate Risk Assessment and Plan Plan: #1 severe generalized weakness #2 bilateral lower extremity edema #3 underlying history of acute myeloid leukemia #4 severe leukocytosis #5 acute low back pain #6 underlying history of diabetes mellitus #7 underlying history of hypertension #8 underlying history of hyperlipidemia At this time patient is admitted to medical floor, she was started on IV fluid, blood culture chest x-ray and urine culture were requested, antibiotics not started at this time Oncology consultation and infectious disease consultation requested Home medications reviewed and reordered Prognosis guarded due to severe underlying medical problems
[2019-06-30] MEDS: SODIUM CHLORIDE 0.9% 1,000 ML IV SCH (14:58)
[2019-06-30 15:04] LABS: Appearance,Urine Cloudy (Clear); Bacteria,Urine Rare /hpf; Bilirubin,Urine Negative (Negative); Blood,Urine Trace (Negative); Color,Urine Light Yellow; Glucose,Urine (UA) Negative (Negative); Hyaline Casts,Urine 10 /lpf (0-2); Ketones,Urine Negative (Negative); Leukocyte Esterase,Urine Negative (Negative); Mucus,Urine Rare /hpf; Nitrite,Urine Negative (Negative); Protein,Urine Trace (Negative); RBC,Urine 2 /hpf (0-5); Squamous Epithelial Cell,Urine 4 /hpf (0-4); Urobilinogen,Urine <2.0 mg/dL (<2.0)
--- NOTE | 2019-06-30 15:24 | XR ---
EXAMINATION TYPE: XR chest 2V DATE OF EXAM: 06/30/2019 COMPARISON: EXAMINATION TYPE: XR chest 2V DATE OF EXAM: 06/30/2019 COMPARISON: 06/29/2019 HISTORY: Leukocytosis TECHNIQUE: 2 views FINDINGS: Heart and mediastinum are normal. Lungs are clear. Diaphragm is normal. Bony thorax is inta ct. There is a right subclavian catheter with the tip in the superior vena cava. IMPRESSION: No active cardiopulmonary disease. Normal heart. No change. HISTORY: TECHNIQUE: Frontal and lateral views of the chest are obtained. FINDINGS: There is no focal air space opacity, pleural effusion, or pneumothorax seen. The cardiac silhouette size is within normal limits. The osseous structures are intact. IMPRESSION: No acute cardiopulmonary process.
[2019-06-30] MEDS ORDERED: HYDROXYUREA 500 MG CAP PO STA (16:08)
[2019-06-30] MEDS ORDERED: VANCOMYCIN IV PER PHARMACY 1 EACH MISC MISCELLANE PRN (16:09)
[2019-06-30] MEDS: CEFEPIME 2 GM in SODIUM CHLORIDE 0.9% 100 ML IVPB SCH (16:57)
[2019-06-30] MEDS: VANCOMYCIN 1,500 MG in SODIUM CHLORIDE 0.9% 250 ML IVPB SCH ×2 (16:57→17:54)
[2019-06-30 19:18] LABS: Glucose,Whole Blood 148 mg/dL (75-99)
[2019-06-30 20:09] LABS: Glucose,Whole Blood 152 mg/dL (75-99)
[2019-07-01] MEDS: CEFEPIME 2 GM in SODIUM CHLORIDE 0.9% 100 ML IVPB SCH ×2 (05:55→18:29)
[2019-07-01] MEDS: Acetaminophen-Codeine 300-30mg TAB PO PRN ×2 (06:10→21:40)
[2019-07-01 07:00] LABS: Glucose,Whole Blood 116 mg/dL (75-99)
[2019-07-01 07:13] LABS: Anisocytosis Slight; HCT 25.8 % (34.0-46.0); HGB 8.2 gm/dL (11.4-16.0); MCH 30.9 pg (25.0-35.0); MCV 96.7 fL (80.0-100.0); Macrocytosis Slight; Mean Platelet Volume 7.4; RBC 2.67 m/uL (3.80-5.40); RDW 19.6 % (11.5-15.5)
[2019-07-01 07:29] LABS: Albumin 2.9 g/dL (3.5-5.0); Calcium 8.8 mg/dL (8.4-10.2); Potassium 3.4 mmol/L (3.5-5.1); Total Bilirubin 0.4 mg/dL (0.2-1.3); Total Protein 5.8 g/dL (6.3-8.2)
[2019-07-01 08:06] LABS: Platelet Count 87 k/uL (150-450)
[2019-07-01] MEDS: ACYCLOVIR 200 MG CAP PO SCH ×2 (08:44→21:40)
[2019-07-01] MEDS: CITALOPRAM HYDROBROMIDE 20 MG TAB PO SCH (08:44)
[2019-07-01] MEDS: POTASSIUM BICARBONATE/CIT AC 20 MEQ TABLET.EFF PO SCH (08:44)
[2019-07-01] MEDS: DRONABINOL 2.5 MG CAP PO SCH ×2 (08:44→16:55)
[2019-07-01] MEDS: METOPROLOL TARTRATE 25 MG TAB PO SCH ×3 (08:44→21:41)
[2019-07-01] MEDS: MULTIVITAMINS, THERA 1 EACH TAB PO SCH (08:44)
[2019-07-01] MEDS: SODIUM CHLORIDE 0.9% 1,000 ML IV SCH (08:44)
[2019-07-01] MEDS: VANCOMYCIN 1,500 MG in SODIUM CHLORIDE 0.9% 250 ML IVPB SCH (08:54)
[2019-07-01 10:58] LABS: Glucose,Whole Blood 114 mg/dL (75-99)
--- NOTE | 2019-07-01 11:35 | P.CONS ---
History of Present Illness - Reason for Consult Consult date: 07/01/19 AML - Chief Complaint Profound Weakness - History of Present Illness Mey is a 64 year old female recently diagnosed with AML and treated with induction chemotherapy. Her post induction bone marrow showed remission and was sent to [facility] for Stem Cell Evaluation, although per patient and family she was too weak, performace status poor to consider transplant at that time, this was 8.28.19. She states she has just been getting weaker and weaker at home, and doesnt want to eat. She has been working with Pt/ot AT HOME. Patient presented to emergency for inability to walk due to myopathy and poor appetite. Her WBC 77K and Blast Count greater than 50% concerning for recurrence. She was given one dose 2000 hydroxyurea and WBC down to 22K today. Review of Systems A 14 point review of system assessed and completed and all negative except HPI Past Medical History Past Medical History: Cancer, Diabetes Mellitus, Hyperlipidemia, Hypertension Additional Past Medical History / Comment(s): AML diagnosed 03/2019. chemo 05/07/2019 History of Any Multi-Drug Resistant Organisms: None Reported Past Surgical History: No Surgical Hx Reported Additional Past Surgical History / Comment(s): picc line. bone marrow bx Past Anesthesia/Blood Transfusion Reactions: No Reported Reaction Past Psychological History: No Psychological Hx Reported Smoking Status: Never smoker - Past Family History Mother Family Medical History: Cancer Medications and Allergies Home Medications Medication Instructions Recorded Confirmed Type Acetaminophen-Codeine 300-30mg 1 tab PO Q6H PRN 05/07/19 06/29/19 History [Tylenol w/codeine #3] Acyclovir [Zovirax] 400 mg PO BID #60 ml 05/25/19 06/29/19 Rx Citalopram Hydrobromide 20 mg PO DAILY #0 05/25/19 06/29/19 Rx [Citalopram HBr] Dronabinol [Marinol] 2.5 mg PO AC-BID #60 cap 05/25/19 06/29/19 Rx Loperamide [Imodium] 2 mg PO QID PRN #30 cap 05/25/19 06/29/19 Rx Metoprolol Tartrate [Lopressor] 25 mg PO TID #75 tab 05/25/19 06/29/19 Rx Prochlorperazine [Compazine] 10 mg PO Q6H PRN #45 tab 05/25/19 06/29/19 Rx ALPRAZolam [Xanax] 0.25 mg PO Q8HR PRN 06/29/19 06/29/19 History Potassium Chloride Oral Liquid 40 meq PO DAILY 06/29/19 06/29/19 History Allergies Allergy/AdvReac Type Severity Reaction Status Date / Time latex Allergy Rash/Hives Verified 06/29/19 17:43 Physical Exam Vitals: Vital Signs Temp Pulse Resp BP Pulse Ox 07/01/19 05:00 97.6 F 84 18 119/72 97 07/01/19 00:15 64 18 06/30/19 20:40 97.5 F L 61 18 118/72 96 06/30/19 13:03 97.7 F 62 18 124/68 95 Intake and Output 06/30/19 07/01/19 07/01/19 22:59 06:59 14:59 Intake Total 650 400 Balance 650 400 Intake: Intake, IV Titration 650 400 Amount Sodium Chloride 0.9% 1, 400 400 000 ml @ 50 mls/hr IV . Q20H [facility] Rx#:[id number] Vancomycin 1,500 mg In 250 Sodium Chloride 0.9% 250 ml @ 125 mls/hr IVPB Q16H [facility] Rx#:[id number] Other: Voiding Method Bedpan Bedpan Bedpan # Voids 1 3 Gen: Alert and orirnted, FLat Affect Neck Supple Mouthe, Scatterd thrush Heart: RRR Lungs: Dimnished lower lobes, no increase effort Abdomen: S. Obese Extremities: Equal strength, weak no edema Results CBC & Chem 7: 07/01/19 11:51 07/01/19 06:30 Labs: Abnormal Lab Results - Last 24 Hours (Table) 06/30/19 06/30/19 06/30/19 Range/Units 08:33 12:02 12:02 WBC 46.7 H (3.8-10.6) k/uL RBC 2.87 L (3.80-5.40) m/uL Hgb 8.8 L (11.4-16.0) gm/dL Hct 27.5 L (34.0-46.0) % RDW 19.4 H (11.5-15.5) % Plt Count 95 L 96 L (150-450) k/uL Potassium (3.5-5.1) mmol/L BUN (7-17) mg/dL Glucose (74-99) mg/dL POC Glucose (mg/dL) (75-99) mg/dL Uric Acid 13.3 H (3.7-7.4) mg/dL Lactate Dehydrogenase 750 H (313-618) U/L Total Protein (6.3-8.2) g/dL Albumin (3.5-5.0) g/dL Urine Appearance (Clear) Urine Protein (Negative) Urine Blood (Negative) Urine WBC (0-5) /hpf Urine Bacteria (None) /hpf Hyaline Casts (0-2) /lpf Urine Mucus (None) /hpf 06/30/19 06/30/19 06/30/19 Range/Units 13:02 14:00 19:16 WBC (3.8-10.6) k/uL RBC (3.80-5.40) m/uL Hgb (11.4-16.0) gm/dL Hct (34.0-46.0) % RDW (11.5-15.5) % Plt Count (150-450) k/uL Potassium (3.5-5.1) mmol/L BUN (7-17) mg/dL Glucose (74-99) mg/dL POC Glucose (mg/dL) 121 H 148 H (75-99) mg/dL Uric Acid (3.7-7.4) mg/dL Lactate Dehydrogenase (313-618) U/L Total Protein (6.3-8.2) g/dL Albumin (3.5-5.0) g/dL Urine Appearance Cloudy H (Clear) Urine Protein Trace H (Negative) Urine Blood Trace H (Negative) Urine WBC 12 H (0-5) /hpf Urine Bacteria Rare H (None) /hpf Hyaline Casts 10 H (0-2) /lpf Urine Mucus Rare H (None) /hpf 06/30/19 07/01/19 07/01/19 Range/Units 20:08 06:30 06:30 WBC 24.1 H (3.8-10.6) k/uL RBC 2.67 L (3.80-5.40) m/uL Hgb 8.2 L (11.4-16.0) gm/dL Hct 25.8 L (34.0-46.0) % RDW 19.6 H (11.5-15.5) % Plt Count (150-450) k/uL Potassium 3.4 L (3.5-5.1) mmol/L BUN 19 H (7-17) mg/dL Glucose 105 H (74-99) mg/dL POC Glucose (mg/dL) 152 H (75-99) mg/dL Uric Acid (3.7-7.4) mg/dL Lactate Dehydrogenase (313-618) U/L Total Protein 5.8 L (6.3-8.2) g/dL Albumin 2.9 L (3.5-5.0) g/dL Urine Appearance (Clear) Urine Protein (Negative) Urine Blood (Negative) Urine WBC (0-5) /hpf Urine Bacteria (None) /hpf Hyaline Casts (0-2) /lpf Urine Mucus (None) /hpf 07/01/19 07/01/19 Range/Units 06:59 10:57 WBC (3.8-10.6) k/uL RBC (3.80-5.40) m/uL Hgb (11.4-16.0) gm/dL Hct (34.0-46.0) % RDW (11.5-15.5) % Plt Count (150-450) k/uL Potassium (3.5-5.1) mmol/L BUN (7-17) mg/dL Glucose (74-99) mg/dL POC Glucose (mg/dL) 116 H 114 H (75-99) mg/dL Uric Acid (3.7-7.4) mg/dL Lactate Dehydrogenase (313-618) U/L Total Protein (6.3-8.2) g/dL Albumin (3.5-5.0) g/dL Urine Appearance (Clear) Urine Protein (Negative) Urine Blood (Negative) Urine WBC (0-5) /hpf Urine Bacteria (None) /hpf Hyaline Casts (0-2) /lpf Urine Mucus (None) /hpf Microbiology - Last 24 Hours (Table) 06/30/19 16:00 Catheter Tip Culture - Preliminary Picc Line 06/30/19 14:00 Urine Culture - Preliminary Urine,Voided Assessment and Plan Plan: Leukocytosis with neutropenia and increased blast 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 Completed - Obtained Remission after induction and [facility] for [facility] cell - Unfortunately apears to have recurred after remission Polyarthralgia - Improved ? if r/t AML. Improved with tylenol #3, pt is now able to ambulate with bilateral leg braces and walker. D/W case wtih PT. Encouraged pt remove leg braces due to skin breakdown concerns and to evaluate pain and strength in the ankles. Encouraged her to follow PT instructions and use their support when doing therapy. Weakness and debility - PT/OT extreme myopathy Plan: - Concern for recurrent Acute Leukemia, will need repeat Bone Marrow biopsy Tuesday or Tuesday, I will discuss with Dr. Carson and Office to arrange - Await Differential and blast count today, may continue on hydrea after this results - Long discussion with patient on concern for recurrent disease and poor performance, failure to thrive, depression as differential -Could benefit from psych consult
[2019-07-01 12:33] LABS: Anisocytosis Slight; HGB 8.2 gm/dL (11.4-16.0); MCH 30.3 pg (25.0-35.0); MCHC 31.4 g/dL (31.0-37.0); MCV 96.7 fL (80.0-100.0); Macrocytosis Slight; Mean Platelet Volume 7.8; RBC 2.69 m/uL (3.80-5.40); RDW 19.7 % (11.5-15.5)
[2019-07-01 12:43] LABS: Platelet Count 89 k/uL (150-450)
--- NOTE | 2019-07-01 13:57 | P.PN ---
Subjective Progress Note Date: 07/01/19 Mey Hernandez, she is a 64-year-old female was known history of AML who presented to [facility] as a transfer from [facility] due to severe weakness and bilateral lower extremity edema, symptoms started about 7 days ago and has been worsening, she was evaluated in the emergency room, bilateral lower extremity Doppler was negative for DVT, blood culture and urine cultures were ordered, white blood count was significantly elevated at 71,000, she was admitted to medical floor and the oncology consultation was requested. Patient was also complaining of lower back pain computed tomography scan of the thoracic spine and the lumbar spine was done and did not reveal any acute abnorm ality. On 07/01/2019 patient was seen and examined on the medical floor she is feeling somewhat better less tired today, there is no fever or chills no headache or dizziness no chest pain no shortness of breath no cough no nausea or vomiting no abdominal pain no diarrhea and no urinary symptoms. Triple antibiotic coverage was added by oncology yesterday, awaiting infectious disease input. Objective - Vital Signs Vital signs: Vital Signs Temp 97.3 F L 07/01/19 12:02 Pulse 73 07/01/19 12:02 Resp 16 07/01/19 12:02 BP 115/74 07/01/19 12:02 Pulse Ox 98 07/01/19 12:02 Intake & Output 06/30/19 07/01/19 07/01/19 18:59 06:59 18:59 Intake Total 1050 Balance 1050 Weight 83.007 kg Intake: Intake, IV Titration 1050 Amount Sodium Chloride 0.9% 1, 800 000 ml @ 50 mls/hr IV . Q20H LAST Rx#:[id number] Vancomycin 1,500 mg In 250 Sodium Chloride 0.9% 250 ml @ 125 mls/hr IVPB Q16H LAST Rx#:[id number] Other: Voiding Method Bedpan Bedpan Bedpan # Voids 8 3 - Exam In general patient is alert and oriented 3 in no apparent distress HEENT head normocephalic and atraumatic Neck is supple no JVD no goiter no lymphadenopathy Chest exam reveals a few scattered crackles no wheezing Cardiac exam reveals regular heart sounds S1 and S2 no gallops no murmurs Abdomen is soft nontender no organomegaly with normal bowel sounds Extremity exam reveals 2+ edema no cyanosis or clubbing Neurological examination reveals generalized weakness without any focal neurological deficit - Labs CBC & Chem 7: 07/01/19 11:51 07/01/19 06:30 Labs: Abnormal Lab Results - Last 24 Hours (Table) 06/30/19 06/30/19 06/30/19 Range/Units 08:33 12:02 14:00 WBC (3.8-10.6) k/uL RBC (3.80-5.40) m/uL Hgb (11.4-16.0) gm/dL Hct (34.0-46.0) % RDW (11.5-15.5) % Plt Count 95 L 96 L (150-450) k/uL Potassium (3.5-5.1) mmol/L BUN (7-17) mg/dL Glucose (74-99) mg/dL POC Glucose (mg/dL) (75-99) mg/dL Total Protein (6.3-8.2) g/dL Albumin (3.5-5.0) g/dL Urine Appearance Cloudy H (Clear) Urine Protein Trace H (Negative) Urine Blood Trace H (Negative) Urine WBC 12 H (0-5) /hpf Urine Bacteria Rare H (None) /hpf Hyaline Casts 10 H (0-2) /lpf Urine Mucus Rare H (None) /hpf 06/30/19 06/30/19 07/01/19 Range/Units 19:16 20:08 06:30 WBC 24.1 H (3.8-10.6) k/uL RBC 2.67 L (3.80-5.40) m/uL Hgb 8.2 L (11.4-16.0) gm/dL Hct 25.8 L (34.0-46.0) % RDW 19.6 H (11.5-15.5) % Plt Count (150-450) k/uL Potassium (3.5-5.1) mmol/L BUN (7-17) mg/dL Glucose (74-99) mg/dL POC Glucose (mg/dL) 148 H 152 H (75-99) mg/dL Total Protein (6.3-8.2) g/dL Albumin (3.5-5.0) g/dL Urine Appearance (Clear) Urine Protein (Negative) Urine Blood (Negative) Urine WBC (0-5) /hpf Urine Bacteria (None) /hpf Hyaline Casts (0-2) /lpf Urine Mucus (None) /hpf 07/01/19 07/01/19 07/01/19 Range/Units 06:30 06:59 10:57 WBC (3.8-10.6) k/uL RBC (3.80-5.40) m/uL Hgb (11.4-16.0) gm/dL Hct (34.0-46.0) % RDW (11.5-15.5) % Plt Count (150-450) k/uL Potassium 3.4 L (3.5-5.1) mmol/L BUN 19 H (7-17) mg/dL Glucose 105 H (74-99) mg/dL POC Glucose (mg/dL) 116 H 114 H (75-99) mg/dL Total Protein 5.8 L (6.3-8.2) g/dL Albumin 2.9 L (3.5-5.0) g/dL Urine Appearance (Clear) Urine Protein (Negative) Urine Blood (Negative) Urine WBC (0-5) /hpf Urine Bacteria (None) /hpf Hyaline Casts (0-2) /lpf Urine Mucus (None) /hpf 07/01/19 Range/Units 11:51 WBC 22.5 H (3.8-10.6) k/uL RBC 2.69 L (3.80-5.40) m/uL Hgb 8.2 L (11.4-16.0) gm/dL Hct 26.0 L (34.0-46.0) % RDW 19.7 H (11.5-15.5) % Plt Count 89 L (150-450) k/uL Potassium (3.5-5.1) mmol/L BUN (7-17) mg/dL Glucose (74-99) mg/dL POC Glucose (mg/dL) (75-99) mg/dL Total Protein (6.3-8.2) g/dL Albumin (3.5-5.0) g/dL Urine Appearance (Clear) Urine Protein (Negative) Urine Blood (Negative) Urine WBC (0-5) /hpf Urine Bacteria (None) /hpf Hyaline Casts (0-2) /lpf Urine Mucus (None) /hpf Microbiology - Last 24 Hours (Table) 06/30/19 16:00 Catheter Tip Culture - Preliminary Picc Line 06/30/19 14:00 Urine Culture - Preliminary Urine,Voided Assessment and Plan Plan: #1 severe generalized weakness #2 bilateral lower extremity edema #3 underlying history of acute myeloid leukemia #4 severe leukocytosis #5 acute low back pain #6 underlying history of diabetes mellitus #7 underlying history of hypertension #8 underlying history of hyperlipidemia At this time patient is admitted to medical floor, she was started on IV fluid, blood culture chest x-ray and urine culture were requested. Oncology consultation and infectious disease consultation request. Patient started on triple antibiotic therapy by oncology awaiting infectious disease input Prognosis guarded due to severe underlying medical problems
[2019-07-01 14:43] LABS: Eosinophils # (M) 0.24 k/uL (0-0.7)
[2019-07-01 17:08] LABS: Glucose,Whole Blood 116 mg/dL (75-99)
--- NOTE | 2019-07-01 17:58 | P.CONS ---
History of Present Illness - Reason for Consult Consult date: 07/01/19 - Chief Complaint weakness - History of Present Illness 64 year old woman Who presents to hospital with increasing weakness. She has a significant recent history of being diagnosed with myelomonocytic leukemia, she received her induction chemotherapy originally was doing relatively well but the n had evidence of recurrence of the disease. Since that time she's had increasing weakness, and at admission was no longer able to walk because significant lower extremity weakness. At the time of presentation white count was 71,000 and consults been requested. The patient has no fevers chills or rigors or sweats. White count is already improving. She does feel quite poorly relates the bit of headache she had has resolved. She has no discomforts in her chest no change of her shortness of breath she is not having cough or sputum production no new abdominal pain, appetites been poor without nausea or emesis. She has no diarrhea. No dysuria. Review of Systems HEENT:Denies headache or acute visual change. Denies sinus or mouth discomforts. Denies neck stiffness or pain. Denies significant oral cavity pain. Denies difficulty on swallowing. Lungs: Denies significant shortness of breath, cough, sputum production, or hemoptysis. Cardiovascular: Denies significant shortness of breath, chest pain, chest wall pain, orthopnea, dyspnea on exertion, syncope Gastrointestinal:Denies nausea, vomiting, diarrhea, constipation, hematemesis, melena, hematochezia. No no significant change of bowel habit noticed. Musculoskeletal: Significant and progressive weakness and inability to walk Skin: Denies new rash or lesions. No new ulcers or wounds are related.. Neuro: Denies headache or visual change. Denies any new onset weakness or difficulty with ambulation. Denies falls or seizures. Psychiatric: Has poor mood Endocrine: Progressive fatigue has had weight loss Past Medical History Past Medical History: Cancer, Diabetes Mellitus, Hyperlipidemia, Hypertension Additional Past Medical History / Comment(s): AML diagnosed 03/2019. chemo 05/07/2019 History of Any Multi-Drug Resistant Organisms: None Reported Past Surgical History: No Surgical Hx Reported Additional Past Surgical History / Comment(s): picc line. bone marrow bx Past Anesthesia/Blood Transfusion Reactions: No Reported Reaction Past Psychological History: No Psychological Hx Reported Additional Psychological History / Comment(s): lives at home with samira garcia. Is not a tobacco smoker or alcohol user. No travel history. No animal exposures Smoking Status: Never smoker - Past Family History Mother Family Medical History: Cancer Medications and Allergies Home Medications and Allergies Comment(s): Current Medications Acetaminophen/Codeine Phosphate (Tylenol #3) 1 each PO Q6H PRN PRN Reason: Pain Last Admin: 07/01/19 06:10 Dose: 1 each Documented by: Acyclovir (Zovirax) 400 mg PO BID [facility] Last Admin: 07/01/19 08:44 Dose: 400 mg Documented by: Alprazolam (Xanax) 0.25 mg PO Q8HR PRN PRN Reason: Anxiety Last Admin: 07/01/19 00:09 Dose: 0.25 mg Documented by: Citalopram Hydrobromide (Celexa) 20 mg PO DAILY [facility] Last Admin: 07/01/19 08:44 Dose: 20 mg Documented by: Dronabinol (Marinol) 2.5 mg PO AC-BID [facility] Last Admin: 07/01/19 16:55 Dose: 2.5 mg Documented by: Sodium Chloride (Saline 0.9%) 1,000 mls @ 50 mls/hr IV .Q20H [facility] Last Admin: 07/01/19 08:44 Dose: 50 mls/hr Documented by: Cefepime HCl 2 gm/ Sodium (Chloride) 100 mls @ 200 mls/hr IVPB Q12H [facility] Last Admin: 07/01/19 05:55 Dose: 200 mls/hr Documented by: Vancomycin HCl 1,500 mg/ (Sodium Chloride) 250 mls @ 125 mls/hr IVPB Q16H [facility] Last Admin: 07/01/19 08:54 Dose: 125 mls/hr Documented by: Loperamide HCl (Imodium) 2 mg PO QID PRN PRN Reason: Diarrhea Metoprolol Tartrate (Lopressor) 25 mg PO TID [facility] Last Admin: 07/01/19 16:55 Dose: 25 mg Documented by: Multivitamins (Theragran) 1 each PO DAILY [facility] Last Admin: 07/01/19 08:44 Dose: 1 each Documented by: Naloxone HCl (Narcan) 0.2 mg IV Q2M PRN PRN Reason: Opioid Reversal Potassium Bicarbonate (K-Lyte) 40 meq PO DAILY [facility] Last Admin: 07/01/19 08:44 Dose: 40 meq Documented by: Prochlorperazine Maleate (Compazine) 10 mg PO Q6H PRN PRN Reason: nausea Home Medications Medication Instructions Recorded Confirmed Type Acetaminophen-Codeine 300-30mg 1 tab PO Q6H PRN 05/07/19 06/29/19 History [Tylenol w/codeine #3] Acyclovir [Zovirax] 400 mg PO BID #60 ml 05/25/19 06/29/19 Rx Citalopram Hydrobromide 20 mg PO DAILY #0 05/25/19 06/29/19 Rx [Citalopram HBr] Dronabinol [Marinol] 2.5 mg PO AC-BID #60 cap 05/25/19 06/29/19 Rx Loperamide [Imodium] 2 mg PO QID PRN #30 cap 05/25/19 06/29/19 Rx Metoprolol Tartrate [Lopressor] 25 mg PO TID #75 tab 05/25/19 06/29/19 Rx Prochlorperazine [Compazine] 10 mg PO Q6H PRN #45 tab 05/25/19 06/29/19 Rx ALPRAZolam [Xanax] 0.25 mg PO Q8HR PRN 06/29/19 06/29/19 History Potassium Chloride Oral Liquid 40 meq PO DAILY 06/29/19 06/29/19 History Allergies Allergy/AdvReac Type Severity Reaction Status Date / Time latex Allergy Rash/Hives Verified 06/29/19 17:43 Physical Exam Vitals: Vital Signs Temp Pulse Resp BP Pulse Ox 07/01/19 12:02 97.3 F L 73 16 115/74 98 07/01/19 05:00 97.6 F 84 18 119/72 97 07/01/19 00:15 64 18 06/30/19 20:40 97.5 F L 61 18 118/72 96 Intake and Output 07/01/19 07/01/19 07/01/19 06:59 14:59 22:59 Intake Total 400 Balance 400 Intake: Intake, IV Titration 400 Amount Sodium Chloride 0.9% 1, 400 000 ml @ 50 mls/hr IV . Q20H LAST Rx#:[id number] Other: Voiding Method Bedpan Bedpan # Voids 3 3 Chronically ill-appearing woman, alopecia HEENT: Anicteric conjunctiva are pale but moist nasal mucosa grossly intact without significant lesions, there is no thrush. Neck: The neck is supple without significant lymphadenopathy or thyromegaly. Lungs: Good bilateral air entry without significant crackles or wheezing. There is no significant bronchial sounds. There is no egophony or dullness. Heart: Regular rate and rhythm with an audible S1-S2, no S3 no S4. There is no significant murmur click or rub, PMI was nondisplaced. Abdomen: Positive bowel sounds soft and nontender without palpable masses or organomegaly. There was no guarding or rebound. Extremities: The upper extremities have excellent pulses they are symmetric, no significant petechiae or telangiectasia. No splinter hemorrhages were noted. The lower extremities are free from significant edema. The peripheral pulses were 2+ and symmetric. Neuro: Awake alert oriented to person place and time has generalized weakness but is able to move all extremities upon command Results CBC & Chem 7: 07/01/19 11:51 07/01/19 06:30 Labs: Abnormal Lab Results - Last 24 Hours (Table) 06/30/19 06/30/19 06/30/19 Range/Units 14:00 19:16 20:08 WBC (3.8-10.6) k/uL RBC (3.80-5.40) m/uL Hgb (11.4-16.0) gm/dL Hct (34.0-46.0) % RDW (11.5-15.5) % Plt Count (150-450) k/uL Potassium (3.5-5.1) mmol/L BUN (7-17) mg/dL Glucose (74-99) mg/dL POC Glucose (mg/dL) 148 H 152 H (75-99) mg/dL Total Protein (6.3-8.2) g/dL Albumin (3.5-5.0) g/dL Urine WBC 12 H (0-5) /hpf 07/01/19 07/01/19 07/01/19 Range/Units 06:30 06:30 06:59 WBC 24.1 H (3.8-10.6) k/uL RBC 2.67 L (3.80-5.40) m/uL Hgb 8.2 L (11.4-16.0) gm/dL Hct 25.8 L (34.0-46.0) % RDW 19.6 H (11.5-15.5) % Plt Count 87 L (150-450) k/uL Potassium 3.4 L (3.5-5.1) mmol/L BUN 19 H (7-17) mg/dL Glucose 105 H (74-99) mg/dL POC Glucose (mg/dL) 116 H (75-99) mg/dL Total Protein 5.8 L (6.3-8.2) g/dL Albumin 2.9 L (3.5-5.0) g/dL Urine WBC (0-5) /hpf 07/01/19 07/01/19 07/01/19 Range/Units 10:57 11:51 17:07 WBC 22.5 H (3.8-10.6) k/uL RBC 2.69 L (3.80-5.40) m/uL Hgb 8.2 L (11.4-16.0) gm/dL Hct 26.0 L (34.0-46.0) % RDW 19.7 H (11.5-15.5) % Plt Count 89 L (150-450) k/uL Potassium (3.5-5.1) mmol/L BUN (7-17) mg/dL Glucose (74-99) mg/dL POC Glucose (mg/dL) 114 H 116 H (75-99) mg/dL Total Protein (6.3-8.2) g/dL Albumin (3.5-5.0) g/dL Urine WBC (0-5) /hpf Microbiology - Last 24 Hours (Table) 06/30/19 12:41 Blood Culture - Preliminary Blood No Growth after 24 hours 06/30/19 12:02 Blood Culture - Preliminary Blood No Growth after 24 hours 06/30/19 16:00 Catheter Tip Culture - Preliminary Picc Line 06/30/19 14:00 Urine Culture - Preliminary Urine,Voided Laboratory Results WBC 22.5 k/uL (3.8-10.6) H 07/01/19 11:51 RBC 2.69 m/uL (3.80-5.40) L 07/01/19 11:51 Hgb 8.2 gm/dL (11.4-16.0) L 07/01/19 11:51 Hct 26.0 % (34.0-46.0) L 07/01/19 11:51 MCV 96.7 fL (80.0-100.0) 07/01/19 11:51 MCH 30.3 pg (25.0-35.0) 07/01/19 11:51 MCHC 31.4 g/dL (31.0-37.0) 07/01/19 11:51 RDW 19.7 % (11.5-15.5) H 07/01/19 11:51 Plt Count 89 k/uL (150-450) L 07/01/19 11:51 Neutrophils % SHOE PLANNER 07/01/19 11:51 Lymphocytes % SHOE PLANNER 07/01/19 11:51 Monocytes % SHOE PLANNER 07/01/19 11:51 Eosinophils % SHOE PLANNER 07/01/19 11:51 Basophils % SHOE PLANNER 07/01/19 11:51 Neutrophils # SHOE PLANNER 07/01/19 11:51 Lymphocytes # SHOE PLANNER 07/01/19 11:51 Monocytes # SHOE PLANNER 07/01/19 11:51 Eosinophils # SHOE PLANNER 07/01/19 11:51 Basophils # SHOE PLANNER 07/01/19 11:51 Pathologist Review 06/30/19 12:02 Anisocytosis Slight 07/01/19 11:51 Macrocytosis Slight 07/01/19 11:51 PT 12.0 sec (9.0-12.0) 06/30/19 12:02 INR 1.1 (<1.2) 06/30/19 12:02 APTT 23.8 sec (22.0-30.0) 06/30/19 12:02 Fibrinogen 263 mg/dL (200-500) 06/30/19 12:02 D-Dimer 0.53 mg/L FEU (<0.60) 06/30/19 12:02 Sodium 138 mmol/L (137-145) 07/01/19 06:30 Potassium 3.4 mmol/L (3.5-5.1) L 07/01/19 06:30 Chloride 102 mmol/L (98-107) 07/01/19 06:30 Carbon Dioxide 30 mmol/L (22-30) 07/01/19 06:30 Anion Gap 6 mmol/L 07/01/19 06:30 BUN 19 mg/dL (7-17) H 07/01/19 06:30 Creatinine 0.96 mg/dL (0.52-1.04) 07/01/19 06:30 Est GFR (CKD-EPI)AfAm 72 (>60 ml/min/1.73 sqM) 07/01/19 06:30 Est GFR (CKD-EPI)NonAf 62 (>60 ml/min/1.73 sqM) 07/01/19 06:30 Glucose 105 mg/dL (74-99) H 07/01/19 06:30 POC Glucose (mg/dL) 116 mg/dL (75-99) H 07/01/19 17:07 POC Glu Aircraft Design Engineer ID Shayla Dunne 07/01/19 17:07 Plasma Lactic Acid Myke 1.1 mmol/L (0.7-2.0) 06/29/19 17:45 Uric Acid 13.3 mg/dL (3.7-7.4) H 06/30/19 12:02 Calcium 8.8 mg/dL (8.4-10.2) 07/01/19 06:30 Total Bilirubin 0.4 mg/dL (0.2-1.3) 07/01/19 06:30 AST 19 U/L (14-36) 07/01/19 06:30 ALT 17 U/L (9-52) 07/01/19 06:30 Alkaline Phosphatase 69 U/L (38-126) 07/01/19 06:30 Lactate Dehydrogenase 750 U/L (313-618) H 06/30/19 12:02 NT-Pro-B Natriuret Pep 1840 pg/mL 06/29/19 17:45 Total Protein 5.8 g/dL (6.3-8.2) L 07/01/19 06:30 Albumin 2.9 g/dL (3.5-5.0) L 07/01/19 06:30 Urine Color Light Yellow 06/30/19 14:00 Urine Appearance Cloudy (Clear) H 06/30/19 14:00 Urine pH 6.0 (5.0-8.0) 06/30/19 14:00 Ur Specific Christmas 1.010 (1.001-1.035) 06/30/19 14:00 Urine Protein Trace (Negative) H 06/30/19 14:00 Urine Glucose (UA) Negative (Negative) 06/30/19 14:00 Urine Ketones Negative (Negative) 06/30/19 14:00 Urine Blood Trace (Negative) H 06/30/19 14:00 Urine Nitrite Negative (Negative) 06/30/19 14:00 Urine Bilirubin Negative (Negative) 06/30/19 14:00 Urine Urobilinogen <2.0 mg/dL (<2.0) 06/30/19 14:00 Ur Leukocyte Esterase Negative (Negative) 06/30/19 14:00 Urine RBC 2 /hpf (0-5) 06/30/19 14:00 Urine WBC 12 /hpf (0-5) H 06/30/19 14:00 Ur Squamous Epith Cells 4 /hpf (0-4) 06/30/19 14:00 Urine Bacteria Rare /hpf (None) H 06/30/19 14:00 Hyaline Casts 10 /lpf (0-2) H 06/30/19 14:00 Urine Mucus Rare /hpf (None) H 06/30/19 14:00 Microbiology 06/30/19 12:41 Blood Blood Culture - Preliminary No Growth after 24 hours 06/30/19 12:02 Blood Blood Culture - Preliminary No Growth after 24 hours 06/30/19 16:00 Picc Line Catheter Tip Culture - Preliminary 06/30/19 14:00 Urine,Voided Urine Culture - Preliminary Chest x-ray: report reviewed Assessment and Plan (1) Leukocytosis Narrative/Plan: 64-year-old woman presents to hospital with profound weakness and inability to ambulate. 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 She has been treated with her first cycle of chemotherapy and originally appeared to have a good response however upon follow-up has evidence of ongoing leukocytosis and lack of remission. She's been evaluated on the transplant program however her performance status is to poor for her to proceed to bone marrow transplantation. At the time of presentation she is profoundly weak for many reasons including her anemia. Her white count did reach 71,000 which is no improvement to 22.5. She has been initiated antibiotic therapy with cefepime and vancomycin because of her history of leukemia and concerns of sepsis. Multiple cultures her progress. We'll rapidly de-escalate antibiotic therapy. Oncology has evaluated and I believe repeat bone marrow aspiration is planned in the near future. Current Visit: Yes Status: Acute Code(s): D72.829 - ELEVATED WHITE BLOOD CELL COUNT, UNSPECIFIED SNOMED Code(s): 249508653 (2) Acute myelomonocytic leukemia not having achieved remission Current Visit: Yes Status: Acute Priority: High Code(s): C92.50 - ACUTE MYELOMONOCYTIC LEUKEMIA, NOT HAVING ACHIEVED REMISSION SNOMED Code(s): 104494655
[2019-07-01] MEDS ORDERED: POTASSIUM CHLORIDE ER 20 MEQ TAB.ER PO STA (18:49)
[2019-07-01 19:59] LABS: Glucose,Whole Blood 110 mg/dL (75-99)
[2019-07-02] MEDS: VANCOMYCIN 1,500 MG in SODIUM CHLORIDE 0.9% 250 ML IVPB SCH ×2 (00:59→17:21)
[2019-07-02] MEDS: CEFEPIME 2 GM in SODIUM CHLORIDE 0.9% 100 ML IVPB SCH ×2 (05:41→15:57)
[2019-07-02] MEDS: SODIUM CHLORIDE 0.9% 1,000 ML IV SCH (05:43)
[2019-07-02] MEDS: Acetaminophen-Codeine 300-30mg TAB PO PRN ×2 (06:16→21:55)
[2019-07-02 06:52] LABS: Glucose,Whole Blood 102 mg/dL (75-99)
[2019-07-02] MEDS: DRONABINOL 2.5 MG CAP PO SCH ×2 (07:13→17:21)
[2019-07-02 08:05] LABS: Anisocytosis Moderate; HCT 26.1 % (34.0-46.0); HGB 8.5 gm/dL (11.4-16.0); MCH 31.8 pg (25.0-35.0); MCHC 32.6 g/dL (31.0-37.0); MCV 97.8 fL (80.0-100.0); Macrocytosis Moderate; Mean Platelet Volume 7.6; RBC 2.67 m/uL (3.80-5.40); RDW 21.1 % (11.5-15.5)
[2019-07-02 08:06] LABS: Platelet Count 92 k/uL (150-450)
[2019-07-02] MEDS: POTASSIUM BICARBONATE/CIT AC 20 MEQ TABLET.EFF PO SCH (08:35)
[2019-07-02] MEDS: MULTIVITAMINS, THERA 1 EACH TAB PO SCH (08:35)
[2019-07-02] MEDS: ACYCLOVIR 200 MG CAP PO SCH ×2 (08:36→21:55)
[2019-07-02] MEDS: METOPROLOL TARTRATE 25 MG TAB PO SCH ×3 (08:36→21:55)
[2019-07-02] MEDS: CITALOPRAM HYDROBROMIDE 20 MG TAB PO SCH (08:36)
[2019-07-02 09:05] LABS: ALT 22 U/L (9-52); AST 23 U/L (14-36); African American GFR (CKD) >90 (>60 ml/min/1.73 sqM); Albumin 2.8 g/dL (3.5-5.0); Alkaline Phosphatase 74 U/L (38-126); Anion Gap 7 mmol/L; Blood Urea Nitrogen 14 mg/dL (7-17); Calcium 8.5 mg/dL (8.4-10.2); Carbon Dioxide 27 mmol/L (22-30); Chloride 104 mmol/L (98-107); Glucose 98 mg/dL (74-99); Potassium 4.1 mmol/L (3.5-5.1); Sodium 138 mmol/L (137-145); Total Bilirubin 0.4 mg/dL (0.2-1.3); Total Protein 5.7 g/dL (6.3-8.2)
[2019-07-02 09:45] LABS: Band Neutrophils % 2 %; Blast Cells # (M) 3.48 k/uL (0); Metamyelocytes # (M) 0.35 k/uL (0); Metamyelocytes % 2 %; Monocytes # (M) 6.79 k/uL (0-1.0); Myelocytes # (M) 0.17 k/uL (0); Myelocytes % 1 %; Neutrophils % (M) 16 %; Nucleated Red Blood Cells 1 /100 WBC (0-0); Total Cells Counted 200; WBC 17.4 k/uL (3.8-10.6)
[2019-07-02 09:46] LABS: Polychromasia Present
--- NOTE | 2019-07-02 10:07 | P.PN ---
Subjective Progress Note Date: 07/02/19 Mey Hernandez, she is a 64-year-old female was known history of AML who presented to [facility] as a transfer from [facility] due to severe weakness and bilateral lower extremity edema, symptoms started about 7 days ago and has been worsening, she was evaluated in the emergency room, bilateral lower extremity Doppler was negative for DVT, blood culture and urine cultures were ordered, white blood count was significantly elevated at 71,000, she was admitted to medical floor and the oncology consultation was requested. Patient was also complaining of lower back pain computed tomography scan of the thoracic spine and the lumbar spine was done and did not reveal any acute abnormality. On 07/01/2019 patient was seen and examined on the medical floor she is feeling somewhat better less tired today, there is no fever or chills no headache or dizziness no chest pain no shortness of breath no cough no nausea or vomiting no abdominal pain no diarrhea and no urinary symptoms. Triple antibiotic coverage was added by oncology yesterday, awaiting infectious disease input. On 07/02/2019 alert and oriented 3. Patient reports she is feeling improved. Possible bone marrow biopsy per oncology. White blood cell is improving to 17.4. Patient remains on Maxipime and vancomycin for IV antibiotics infectious disease is following. Patient denies chest pain or shortness breath. Patient denies nausea vomiting or diarrhea. patient denies any urinary burning or frequency Objective - Vital Signs Vital signs: Vital Signs Temp 97.9 F 07/02/19 05:00 Pulse 77 07/02/19 05:00 Resp 16 07/02/19 05:00 BP 109/70 07/02/19 05:00 Pulse Ox 99 07/02/19 05:00 Intake & Output 07/01/19 07/02/19 07/02/19 18:59 06:59 18:59 Intake Total 1150 Balance 1150 Intake: Intake, IV Titration 1150 Amount Cefepime 2 gm In Sodium 100 Chloride 0.9% 100 ml @ 200 mls/hr IVPB Q12H LAST Rx#:[id number] Sodium Chloride 0.9% 1, 800 000 ml @ 50 mls/hr IV . Q20H LAST Rx#:[id number] Vancomycin 1,500 mg In 250 Sodium Chloride 0.9% 250 ml @ 125 mls/hr IVPB Q16H LAST Rx#:[id number] Other: Voiding Method Bedpan Bedside Commode Diaper Bedpan # Voids 3 3 1 - Exam In general patient is alert and oriented 3 in no apparent distress HEENT head normocephalic and atraumatic Neck is supple no JVD no goiter no lymphadenopathy Chest exam reveals a few scattered crackles no wheezing Cardiac exam reveals regular heart sounds S1 and S2 no gallops no murmurs Abdomen is soft nontender no organomegaly with normal bowel sounds Extremity exam reveals 2+ edema no cyanosis or clubbing Neurological examination reveals generalized weakness without any focal neurological deficit - Labs CBC & Chem 7: 07/02/19 07:10 07/02/19 07:10 Labs: Abnormal Lab Results - Last 24 Hours (Table) 07/01/19 07/01/19 07/01/19 Range/Units 06:30 10:57 11:51 WBC 22.5 H (3.8-10.6) k/uL RBC 2.69 L (3.80-5.40) m/uL Hgb 8.2 L (11.4-16.0) gm/dL Hct 26.0 L (34.0-46.0) % RDW 19.7 H (11.5-15.5) % Plt Count 87 L 89 L (150-450) k/uL Blast Cells % % Monocytes # (Manual) (0-1.0) k/uL Metamyelocytes # (Man) (0) k/uL Myelocytes # (Manual) (0) k/uL Blast Cells # (Man) (0) k/uL Nucleated RBCs (0-0) /100 WBC POC Glucose (mg/dL) 114 H (75-99) mg/dL Total Protein (6.3-8.2) g/dL Albumin (3.5-5.0) g/dL 07/01/19 07/01/19 07/02/19 Range/Units 17:07 19:58 06:50 WBC (3.8-10.6) k/uL RBC (3.80-5.40) m/uL Hgb (11.4-16.0) gm/dL Hct (34.0-46.0) % RDW (11.5-15.5) % Plt Count (150-450) k/uL Blast Cells % % Monocytes # (Manual) (0-1.0) k/uL Metamyelocytes # (Man) (0) k/uL Myelocytes # (Manual) (0) k/uL Blast Cells # (Man) (0) k/uL Nucleated RBCs (0-0) /100 WBC POC Glucose (mg/dL) 116 H 110 H 102 H (75-99) mg/dL Total Protein (6.3-8.2) g/dL Albumin (3.5-5.0) g/dL 07/02/19 07/02/19 Range/Units 07:10 07:10 WBC 17.4 H (3.8-10.6) k/uL RBC 2.67 L (3.80-5.40) m/uL Hgb 8.5 L (11.4-16.0) gm/dL Hct 26.1 L (34.0-46.0) % RDW 21.1 H (11.5-15.5) % Plt Count 92 L (150-450) k/uL Blast Cells % 20 H* % Monocytes # (Manual) 6.79 H (0-1.0) k/uL Metamyelocytes # (Man) 0.35 H (0) k/uL Myelocytes # (Manual) 0.17 H (0) k/uL Blast Cells # (Man) 3.48 H (0) k/uL Nucleated RBCs 1 H (0-0) /100 WBC POC Glucose (mg/dL) (75-99) mg/dL Total Protein 5.7 L (6.3-8.2) g/dL Albumin 2.8 L (3.5-5.0) g/dL Microbiology - Last 24 Hours (Table) 06/30/19 14:00 Urine Culture - Final Urine,Voided 06/30/19 16:00 Catheter Tip Culture - Preliminary Picc Line Coagulase Negative Staph 06/30/19 12:41 Blood Culture - Preliminary Blood No Growth after 24 hours 06/30/19 12:02 Blood Culture - Preliminary Blood No Growth after 24 hours Assessment and Plan Assessment: #1 severe generalized weakness. Physical therapy has been consulted #2 bilateral lower extremity edema #3 underlying history of acute myeloid leukemia. Per oncology concerns for recurrent acute leukemia fast repeat bone marrow biopsy Tuesday or Tuesday. Plans to repeat bone marrow biopsy Tuesday or [facility] #4 severe leukocytosis. PICC line culture positive for coagulase-negative staph. Infectious disease is following. Patient was given hydroxyurea insulin blood cell improving. #5 acute low back pain #6 underlying history of diabetes mellitus #7 underlying history of hypertension #8 underlying history of hyperlipidemia DVT prophylaxis SCDs due to pancytopenia. GI prophylaxis Pepcid Oncology consultation and infectious disease consultation request. Patient started on triple antibiotic therapy by oncology awaiting infectious disease input Prognosis guarded due to severe underlying medical problems I performed an examination of the patient and discussed their management with the Nurse Practitioner. I have reviewed the Nurse Practitioner's notes and agree with the documented findings and plan of care
[2019-07-02 10:41] LABS: Band Neutrophils % 2 %; Metamyelocytes % 3 %; Neutrophils % (M) 15 %
[2019-07-02 10:42] LABS: Nucleated Red Blood Cells 1 /100 WBC (0-0); Total Cells Counted 200
[2019-07-02 10:43] LABS: Blast Cells # (M) 9.37 k/uL (0); Eosinophils # (M) 0.22 k/uL (0-0.7); Lymphocytes # (M) 3.12 k/uL (1.0-4.8); Metamyelocytes # (M) 0.67 k/uL (0); Monocytes # (M) 5.58 k/uL (0-1.0); WBC 22.3 k/uL (3.8-10.6)
[2019-07-02 10:44] LABS: Poikilocytosis (M) Present
[2019-07-02 10:58] LABS: Band Neutrophils % 2 %; Metamyelocytes % 4 %; Myelocytes % 2 %; Neutrophils % (M) 17 %
[2019-07-02 10:59] LABS: Blast Cells # (M) 8.53 k/uL (0); Lymphocytes # (M) 3.79 k/uL (1.0-4.8); Metamyelocytes # (M) 0.95 k/uL (0); Monocytes # (M) 5.69 k/uL (0-1.0); Myelocytes # (M) 0.47 k/uL (0); Nucleated Red Blood Cells 1 /100 WBC (0-0); Total Cells Counted 200; WBC 23.7 k/uL (3.8-10.6)
[2019-07-02 11:00] LABS: Poikilocytosis (M) Present
[2019-07-02 11:19] LABS: Glucose,Whole Blood 108 mg/dL (75-99)
[2019-07-02 11:27] LABS: Band Neutrophils % 4 %; Blast Cells # (M) 12.23 k/uL (0); Eosinophils # (M) 0.45 k/uL (0-0.7); Lymphocytes # (M) 5.89 k/uL (1.0-4.8); Metamyelocytes # (M) 1.36 k/uL (0); Metamyelocytes % 3 %; Myelocytes # (M) 1.36 k/uL (0); Myelocytes % 3 %; Neutrophils % (M) 18 %; Nucleated Red Blood Cells 0 /100 WBC (0-0); Total Cells Counted 200
[2019-07-02 11:28] LABS: Poikilocytosis (M) Present
[2019-07-02 11:44] LABS: Band Neutrophils % 1 %; Basophils # (M) 0.47 k/uL (0-0.2); Lymphocytes # (M) 6.07 k/uL (1.0-4.8); Metamyelocytes % 3 %; Monocytes # (M) 14.48 k/uL (0-1.0); Myelocytes # (M) 0.47 k/uL (0); Myelocytes % 1 %; Neutrophils % (M) 10 %
[2019-07-02 11:45] LABS: Blast Cells # (M) 19.15 k/uL (0); Nucleated Red Blood Cells 0 /100 WBC (0-0); Total Cells Counted 200
[2019-07-02 11:46] LABS: Poikilocytosis (M) Present
[2019-07-02 12:01] LABS: Monocytes # (M) 30.62 k/uL (0-1.0); Neutrophils % (M) 10 %
[2019-07-02 12:02] LABS: Blast Cells # (M) 27.77 k/uL (0)
--- NOTE | 2019-07-02 15:27 | P.PN ---
Subjective Progress Note Date: 07/02/19 Principal diagnosis: Profound weakness, unfortunate recurrence of AML In follow-up today patient is seen sitting up in the chair, she is very weak, she states that she can hardly walk, needs help to stand. No current fevers, nausea, vomiting, appetite is fair to poor, she is short of breath with any exertion due to profound weakness and deconditioning, no cough, hemoptysis, c hest pain or palpitation, abdominal pain, BLE swelling, she is constipated. Objective - Vital Signs Vital signs: Vital Signs Temp 97.4 F L 07/02/19 11:28 Pulse 87 07/02/19 11:28 Resp 16 07/02/19 11:28 BP 123/82 07/02/19 11:28 Pulse Ox 96 07/02/19 11:28 Intake & Output 07/01/19 07/02/19 07/02/19 18:59 06:59 18:59 Intake Total 1150 1012 Balance 1150 1012 Intake: Intake, IV Titration 1150 350 Amount Cefepime 2 gm In Sodium 100 Chloride 0.9% 100 ml @ 200 mls/hr IVPB Q12H LAST Rx#:[id number] Sodium Chloride 0.9% 1, 800 350 000 ml @ 50 mls/hr IV . Q20H LAST Rx#:[id number] Vancomycin 1,500 mg In 250 Sodium Chloride 0.9% 250 ml @ 125 mls/hr IVPB Q16H LAST Rx#:[id number] Oral 662 Other: Voiding Method Bedpan Bedside Commode Diaper Bedpan # Voids 3 3 1 - Constitutional Constitutional Comment(s): In general patient looks more frail General appearance: Present: cooperative, no acute distress - EENT Eyes: Present: anicteric sclerae, EOMI ENT: Present: hearing grossly normal, normal oropharynx - Respiratory Respiratory: bilateral: CTA - Cardiovascular Rhythm: regular Heart sounds: normal: S1, S2 Abnormal Heart Sounds: Absent: systolic murmur, diastolic murmur, rub, S3 Gallop, S4 Gallop, click, other - Peripheral edema leg Peripheral Edema: bilateral: None - Gastrointestinal General gastrointestinal: Present: normal bowel sounds, soft. Absent: absent bowel sounds, decreased bowel sounds, distended, hepatomegaly, hyperactive bowel sounds, organomegaly, rigid, scaphoid, splenomegaly, tenderness, umbilical h ernia, ventral hernia - Neurologic Neurologic: Present: CNII-XII intact - Musculoskeletal Musculoskeletal: Present: generalized weakness - Psychiatric Psychiatric: Present: A&O x's 3, appropriate affect, intact judgment & insight - Labs CBC & Chem 7: 07/02/19 07:10 07/02/19 07:10 Labs: Abnormal Lab Results - Last 24 Hours (Table) 06/29/19 06/30/19 06/30/19 Range/Units 18:40 08:33 12:02 WBC (3.8-10.6) k/uL RBC (3.80-5.40) m/uL Hgb (11.4-16.0) gm/dL Hct (34.0-46.0) % RDW (11.5-15.5) % Plt Count (150-450) k/uL Blast Cells % 39 H* 27 H* 41 H* % Neutrophils # (Manual) 8.50 H 9.90 H (1.3-7.7) k/uL Lymphocytes # (Manual) 5.70 H 5.89 H 6.07 H (1.0-4.8) k/uL Monocytes # (Manual) 30.62 H 14.50 H 14.48 H (0-1.0) k/uL Basophils # (Manual) 0.47 H (0-0.2) k/uL Metamyelocytes # (Man) 1.36 H 1.40 H (0) k/uL Myelocytes # (Manual) 1.36 H 0.47 H (0) k/uL Blast Cells # (Man) 27.77 H 12.23 H 19.15 H (0) k/uL Nucleated RBCs (0-0) /100 WBC POC Glucose (mg/dL) (75-99) mg/dL Total Protein (6.3-8.2) g/dL Albumin (3.5-5.0) g/dL 07/01/19 07/01/19 07/01/19 Range/Units 06:30 11:51 17:07 WBC 23.7 H 22.3 H (3.8-10.6) k/uL RBC 2.69 L (3.80-5.40) m/uL Hgb 8.2 L (11.4-16.0) gm/dL Hct 26.0 L (34.0-46.0) % RDW 19.7 H (11.5-15.5) % Plt Count 89 L (150-450) k/uL Blast Cells % 36 H* 42 H* % Neutrophils # (Manual) (1.3-7.7) k/uL Lymphocytes # (Manual) (1.0-4.8) k/uL Monocytes # (Manual) 5.69 H 5.58 H (0-1.0) k/uL Basophils # (Manual) (0-0.2) k/uL Metamyelocytes # (Man) 0.95 H 0.67 H (0) k/uL Myelocytes # (Manual) 0.47 H (0) k/uL Blast Cells # (Man) 8.53 H 9.37 H (0) k/uL Nucleated RBCs 1 H 1 H (0-0) /100 WBC POC Glucose (mg/dL) 116 H (75-99) mg/dL Total Protein (6.3-8.2) g/dL Albumin (3.5-5.0) g/dL 07/01/19 07/02/19 07/02/19 Range/Units 19:58 06:50 07:10 WBC 17.4 H (3.8-10.6) k/uL RBC 2.67 L (3.80-5.40) m/uL Hgb 8.5 L (11.4-16.0) gm/dL Hct 26.1 L (34.0-46.0) % RDW 21.1 H (11.5-15.5) % Plt Count 92 L (150-450) k/uL Blast Cells % 20 H* % Neutrophils # (Manual) (1.3-7.7) k/uL Lymphocytes # (Manual) (1.0-4.8) k/uL Monocytes # (Manual) 6.79 H (0-1.0) k/uL Basophils # (Manual) (0-0.2) k/uL Metamyelocytes # (Man) 0.35 H (0) k/uL Myelocytes # (Manual) 0.17 H (0) k/uL Blast Cells # (Man) 3.48 H (0) k/uL Nucleated RBCs 1 H (0-0) /100 WBC POC Glucose (mg/dL) 110 H 102 H (75-99) mg/dL Total Protein (6.3-8.2) g/dL Albumin (3.5-5.0) g/dL 07/02/19 07/02/19 Range/Units 07:10 11:17 WBC (3.8-10.6) k/uL RBC (3.80-5.40) m/uL Hgb (11.4-16.0) gm/dL Hct (34.0-46.0) % RDW (11.5-15.5) % Plt Count (150-450) k/uL Blast Cells % % Neutrophils # (Manual) (1.3-7.7) k/uL Lymphocytes # (Manual) (1.0-4.8) k/uL Monocytes # (Manual) (0-1.0) k/uL Basophils # (Manual) (0-0.2) k/uL Metamyelocytes # (Man) (0) k/uL Myelocytes # (Manual) (0) k/uL Blast Cells # (Man) (0) k/uL Nucleated RBCs (0-0) /100 WBC POC Glucose (mg/dL) 108 H (75-99) mg/dL Total Protein 5.7 L (6.3-8.2) g/dL Albumin 2.8 L (3.5-5.0) g/dL Microbiology - Last 24 Hours (Table) 06/30/19 12:41 Blood Culture - Preliminary Blood No Growth after 48 hours 06/30/19 12:02 Blood Culture - Preliminary Blood No Growth after 48 hours 06/30/19 14:00 Urine Culture - Final Urine,Voided 06/30/19 16:00 Catheter Tip Culture - Preliminary Picc Line Coagulase Negative Staph Assessment and Plan (1) 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 She went to see BMT team in [place] last week but, due to her very poor performance status she was not a candidate for transplant. Unfortunately, patient has evidence of recurrence, very rapidly after induction. 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 Dr. Carson has discussed the case with labor relations manager. Patient's peripheral blood is going to be sent for NGS testing for acute myeloid leukemia to see if this mutation still exists. If IDH2 mutation persists, there is a targeted therapy for patients who are relapsed and/or refractory to treatment. Pending results of testing. Current Visit: Yes Status: Acute Priority: High Code(s): C92.50 - ACUTE MYELOMONOCYTIC LEUKEMIA, NOT HAVING ACHIEVED REMISSION SNOMED Code(s): 568073845 (2) Leukocytosis Narrative/Plan: Significantly improved with Hydrea. Patient's Plavix count was reported at 20% today. White count was down to 17.6. We'll continue to monitor. May consider ongoing dosing of Hydrea Current Visit: Yes Status: Acute Priority: High Code(s): D72.829 - EL EVATED WHITE BLOOD CELL COUNT, UNSPECIFIED SNOMED Code(s): 635030940 (3) Bicytopenia Narrative/Plan: Secondary to disease process. Transfuse for hemoglobin of less than 7 or if symptomatic and a platelet count of less than 10 unless symptomatic. Irradiated blood products. Current Visit: Yes Status: Acute Priority: High Code(s): D75.89 - OTHER SPECIFIED DISEASES OF BLOOD AND BLOOD-FORMING ORGANS SNOMED Code(s): 26074803
[2019-07-02 17:21] LABS: Glucose,Whole Blood 101 mg/dL (75-99)
[2019-07-02 20:16] LABS: Glucose,Whole Blood 117 mg/dL (75-99)
[2019-07-03] MEDS: SODIUM CHLORIDE 0.9% 1,000 ML IV SCH ×2 (03:22→23:19)
[2019-07-03] MEDS: Acetaminophen-Codeine 300-30mg TAB PO PRN ×3 (04:01→22:26)
[2019-07-03] MEDS: CEFEPIME 2 GM in SODIUM CHLORIDE 0.9% 100 ML IVPB SCH ×2 (04:02→17:21)
[2019-07-03 07:19] LABS: Glucose,Whole Blood 107 mg/dL (75-99)
[2019-07-03] MEDS ORDERED: VANCOMYCIN TROUGH DUE 1 EACH MISC MISCELLANE ONE (08:00)
[2019-07-03 08:11] LABS: Anisocytosis Slight; HCT 24.9 % (34.0-46.0); HGB 8.4 gm/dL (11.4-16.0); MCH 32.9 pg (25.0-35.0); MCHC 33.9 g/dL (31.0-37.0); MCV 97.1 fL (80.0-100.0); Macrocytosis Slight; Mean Platelet Volume 7.5; RBC 2.56 m/uL (3.80-5.40); RDW 19.7 % (11.5-15.5); WBC 12.5 k/uL (3.8-10.6)
[2019-07-03 08:24] LABS: ALT 20 U/L (9-52); AST 22 U/L (14-36); African American GFR (CKD) >90 (>60 ml/min/1.73 sqM); Albumin 2.7 g/dL (3.5-5.0); Alkaline Phosphatase 71 U/L (38-126); Anion Gap 5 mmol/L; Blood Urea Nitrogen 13 mg/dL (7-17); Carbon Dioxide 29 mmol/L (22-30); Chloride 105 mmol/L (98-107); Glucose 91 mg/dL (74-99); Potassium 3.6 mmol/L (3.5-5.1); Sodium 139 mmol/L (137-145); Total Bilirubin 0.4 mg/dL (0.2-1.3); Total Protein 5.6 g/dL (6.3-8.2)
[2019-07-03 08:25] LABS: Platelet Count 89 k/uL (150-450)
[2019-07-03] MEDS: METOPROLOL TARTRATE 25 MG TAB PO SCH ×3 (08:54→22:29)
[2019-07-03] MEDS: ACYCLOVIR 200 MG CAP PO SCH ×2 (08:54→22:30)
[2019-07-03] MEDS: MULTIVITAMINS, THERA 1 EACH TAB PO SCH (08:55)
[2019-07-03] MEDS: FAMOTIDINE 20 MG TAB PO SCH (08:55)
[2019-07-03] MEDS: DRONABINOL 2.5 MG CAP PO SCH ×2 (08:55→17:21)
[2019-07-03] MEDS: CITALOPRAM HYDROBROMIDE 20 MG TAB PO SCH (08:55)
[2019-07-03] MEDS: POTASSIUM BICARBONATE/CIT AC 20 MEQ TABLET.EFF PO SCH (09:01)
[2019-07-03] MEDS: VANCOMYCIN 1,500 MG in SODIUM CHLORIDE 0.9% 250 ML IVPB SCH (09:02)
[2019-07-03] MEDS ORDERED: MAGNESIUM HYDROXIDE 2,400 MG/10 ML CUP PO STA (09:49)
[2019-07-03 09:50] LABS: Band Neutrophils % 3 %; Basophils # (M) 0.13 k/uL (0-0.2); Lymphocytes # (M) 2.63 k/uL (1.0-4.8); Metamyelocytes # (M) 0.13 k/uL (0); Metamyelocytes % 1 %; Monocytes # (M) 4.63 k/uL (0-1.0); Myelocytes # (M) 0.13 k/uL (0); Myelocytes % 1 %; Neutrophils % (M) 16 %
[2019-07-03 09:51] LABS: Blast Cells # (M) 2.75 k/uL (0); Nucleated Red Blood Cells 0 /100 WBC (0-0); Total Cells Counted 200
[2019-07-03 09:52] LABS: Polychromasia Present
--- NOTE | 2019-07-03 10:12 | P.PN ---
Subjective Progress Note Date: 07/03/19 Principal diagnosis: Profound weakness, unfortunate recurrence of AML In f/u today pt continues to c/o weakness and no BM for at least 4-5 days. No fever, nausea, difficulty in breathing, abdominal pain or discomfort, dysuria or hematuria, swelling in the lower extremities. Objective - Vital Signs Vital signs: Vital Signs Temp 97.4 F L 07/03/19 05:00 Pulse 95 07/03/19 05:00 Resp 16 07/03/19 05:00 BP 132/80 07/03/19 05:41 Pulse Ox 98 07/03/19 05:00 Intake & Output 07/02/19 07/03/19 07/03/19 18:59 06:59 18:59 Intake Total 1012 1190 Balance 1012 1190 Intake: Intake, IV Titration 350 600 Amount Cefepime 2 gm In Sodium 200 Chloride 0.9% 100 ml @ 200 mls/hr IVPB Q12H LAST Rx#:[id number] Sodium Chloride 0.9% 1, 350 400 000 ml @ 50 mls/hr IV . Q20H LAST Rx#:[id number] Oral [id number] Other: Voiding Method Diaper Diaper Diaper # Voids 1 3 - Constitutional General appearance: Present: average body habitus, cooperative, no acute distress - EENT Eyes: Present: anicteric sclerae, EOMI ENT: Present: normal oropharynx - Respiratory Respiratory: bilateral: CTA - Cardiovascular Rhythm: regular Heart sounds: normal: S1, S2 - Peripheral edema leg Peripheral Edema: bilateral: None - Gastrointestinal General gastrointestinal: Present: normal bowel sounds, soft. Absent: absent bowel sounds, decreased bowel sounds, distended, hepatomegaly, hyperactive bowel sounds, organomegaly, rigid, scaphoid, splenomegaly, tenderness, umbilical hernia, ventral hernia - Neurologic Neurologic: Present: CNII-XII intact - Musculoskeletal Musculoskeletal: Present: generalized weakness - Psychiatric Psychiatric: Present: A&O x's 3, appropriate affect, intact judgment & insight - Labs CBC & Chem 7: 07/03/19 07:32 07/03/19 07:32 Labs: Abnormal Lab Results - Last 24 Hours (Table) 06/29/19 06/30/19 06/30/19 Range/Units 18:40 08:33 12:02 WBC (3.8-10.6) k/uL RBC (3.80-5.40) m/uL Hgb (11.4-16.0) gm/dL Hct (34.0-46.0) % RDW (11.5-15.5) % Plt Count (150-450) k/uL Blast Cells % 39 H* 27 H* 41 H* % Neutrophils # (Manual) 8.50 H 9.90 H (1.3-7.7) k/uL Lymphocytes # (Manual) 5.70 H 5.89 H 6.07 H (1.0-4.8) k/uL Monocytes # (Manual) 30.62 H 14.50 H 14.48 H (0-1.0) k/uL Basophils # (Manual) 0.47 H (0-0.2) k/uL Metamyelocytes # (Man) 1.36 H 1.40 H (0) k/uL Myelocytes # (Manual) 1.36 H 0.47 H (0) k/uL Blast Cells # (Man) 27.77 H 12.23 H 19.15 H (0) k/uL Nucleated RBCs (0-0) /100 WBC POC Glucose (mg/dL) (75-99) mg/dL Calcium (8.4-10.2) mg/dL Total Protein (6.3-8.2) g/dL Albumin (3.5-5.0) g/dL 07/01/19 07/01/19 07/02/19 Range/Units 06:30 11:51 11:17 WBC 23.7 H 22.3 H (3.8-10.6) k/uL RBC (3.80-5.40) m/uL Hgb (11.4-16.0) gm/dL Hct (34.0-46.0) % RDW (11.5-15.5) % Plt Count (150-450) k/uL Blast Cells % 36 H* 42 H* % Neutrophils # (Manual) (1.3-7.7) k/uL Lymphocytes # (Manual) (1.0-4.8) k/uL Monocytes # (Manual) 5.69 H 5.58 H (0-1.0) k/uL Basophils # (Manual) (0-0.2) k/uL Metamyelocytes # (Man) 0.95 H 0.67 H (0) k/uL Myelocytes # (Manual) 0.47 H (0) k/uL Blast Cells # (Man) 8.53 H 9.37 H (0) k/uL Nucleated RBCs 1 H 1 H (0-0) /100 WBC POC Glucose (mg/dL) 108 H (75-99) mg/dL Calcium (8.4-10.2) mg/dL Total Protein (6.3-8.2) g/dL Albumin (3.5-5.0) g/dL 07/02/19 07/02/19 07/03/19 Range/Units 17:19 20:15 07:07 WBC (3.8-10.6) k/uL RBC (3.80-5.40) m/uL Hgb (11.4-16.0) gm/dL Hct (34.0-46.0) % RDW (11.5-15.5) % Plt Count (150-450) k/uL Blast Cells % % Neutrophils # (Manual) (1.3-7.7) k/uL Lymphocytes # (Manual) (1.0-4.8) k/uL Monocytes # (Manual) (0-1.0) k/uL Basophils # (Manual) (0-0.2) k/uL Metamyelocytes # (Man) (0) k/uL Myelocytes # (Manual) (0) k/uL Blast Cells # (Man) (0) k/uL Nucleated RBCs (0-0) /100 WBC POC Glucose (mg/dL) 101 H 117 H 107 H (75-99) mg/dL Calcium (8.4-10.2) mg/dL Total Protein (6.3-8.2) g/dL Albumin (3.5-5.0) g/dL 07/03/19 07/03/19 Range/Units 07:32 07:32 WBC 12.5 H (3.8-10.6) k/uL RBC 2.56 L (3.80-5.40) m/uL Hgb 8.4 L (11.4-16.0) gm/dL Hct 24.9 L (34.0-46.0) % RDW 19.7 H (11.5-15.5) % Plt Count 89 L (150-450) k/uL Blast Cells % 22 H* % Neutrophils # (Manual) (1.3-7.7) k/uL Lymphocytes # (Manual) (1.0-4.8) k/uL Monocytes # (Manual) 4.63 H (0-1.0) k/uL Basophils # (Manual) (0-0.2) k/uL Metamyelocytes # (Man) 0.13 H (0) k/uL Myelocytes # (Manual) 0.13 H (0) k/uL Blast Cells # (Man) 2.75 H (0) k/uL Nucleated RBCs (0-0) /100 WBC POC Glucose (mg/dL) (75-99) mg/dL Calcium 8.0 L (8.4-10.2) mg/dL Total Protein 5.6 L (6.3-8.2) g/dL Albumin 2.7 L (3.5-5.0) g/dL Microbiology - Last 24 Hours (Table) 06/30/19 16:00 Catheter Tip Culture - Final Picc Line Staphylococcus epidermidis 06/30/19 12:41 Blood Culture - Preliminary Blood No Growth after 48 hours 06/30/19 12:02 Blood Culture - Preliminary Blood No Growth after 48 hours Assessment and Plan (1) Weakness generalized Narrative/Plan: After assisting staff with the patient yesterday to the bedside commode and physical examination of lower extremity muscle strength there is no objective evidence to explain patient's claim of profound weakness. Was explained to patient today that she is not a candidate for treatment of her acute leukemia without significant improvement in her performance status. Patient needs to be able to walk independently and care for herself in order to tolerate treatment. It was also explained to the patient that without treatment she would likely succumb to this disease within the next 1-2 months. Patient did seem a bit more motivated to participate in physical therapy. Explained to patient that she needs to be very pro active in moving herself around, changing positions, performing the exercise regimens that physical therapy has recommended for her. We are going to have Dr. Salamanca evaluate the patient for aggressive inpatient rehab. Patient is agreeable with this plan and hopefully, is motivated to comply and improve her condition as no one can do this for her. 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 She went to see BMT team in [place] last week but, due to her very poor performance status she was not a candidate for transplant. Unfortunately, patient has evidence of recurrence, very rapidly after induction. 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 Due to the possibility of change or new mutation specimen has been sent for testing to see if the IDH 2 mutation still exists. Pending results of testing, plan of care to follow Current Visit: Yes Status: Acute Priority: High Code(s): C92.50 - ACUTE MYELOMONOCYTIC LEUKEMIA, NOT HAVING ACHIEVED REMISSION SNOMED Code(s): 864886670 (3) Leukocytosis Narrative/Plan: Significantly improved after Hydrea. We'll continue to monitor counts. Maintenance Hydrea dosing will be considered. Current Visit: Yes Status: Acute Priority: High Code(s): D72.829 - ELEVATED WHITE BLOOD CELL COUNT, UNSPECIFIED SNOMED Code(s): 492084537 (4) Bicytopenia Narrative/Plan: Secondary to disease process. Transfuse for hemoglobin of less than 7 or if symptomatic and a platelet count of less than 10 unless symptomatic. Irradiated blood products. No transfusions needed today Current Visit: Yes Status: Acute Priority: High Code(s): D75.89 - OTHER SPECIFIED DISEASES OF BLOOD AND BLOOD-FORMING ORGANS SNOMED Code(s): 33999856 (5) Constipation Narrative/Plan: Patient is being provided with multiple remedies for constipation. Senokot ordered for daily. Current Visit: Yes Status: Acute Priority: High Code(s): K59.00 - CONSTIPATION, UNSPECIFIED SNOMED Code(s): 86782518 Plan: Infectious disease is following, cath positive for staph epi. Doctor attests: I performed a history and physical examination of this patient, developed impression and plan of care. Discussed with dictator. I agree with dictators note, documented as a scribe.
[2019-07-03] MEDS: SENNOSIDES-DOCUSATE SODIUM 1 EACH TAB PO SCH ×2 (10:40→22:26)
[2019-07-03 11:11] LABS: Glucose,Whole Blood 126 mg/dL (75-99)
--- NOTE | 2019-07-03 11:17 | P.PN ---
Subjective Progress Note Date: 07/03/19 Mey Hernandez, she is a 64-year-old female was known history of AML who presented to [facility] as a transfer from [facility] due to severe weakness and bilateral lower extremity edema, symptoms started about 7 days ago and has been worsening, she was evaluated in the emergency room, bilateral lower extremity Doppler was negative for DVT, blood culture and urine cultures were ordered, white blood count was significantly elevated at 71,000, she was admitted to medical floor and the oncology consultation was requested. Patient was also complaining of lower back pain computed tomography scan of the thoracic spine and the lumbar spine was done and did not reveal any acute abnormality. On 07/01/2019 patient was seen and examined on the medical floor she is feeling somewhat better less tired today, there is no fever or chills no headache or dizziness no chest pain no shortness of breath no cough no nausea or vomiting no abdominal pain no diarrhea and no urinary symptoms. Triple antibiotic coverage was added by oncology yesterday, awaiting infectious disease input. On 07/02/2019 alert and oriented 3. Patient reports she is feeling improved. Possible bone marrow biopsy per oncology. White blood cell is improving to 17.4. Patient remains on Maxipime and vancomycin for IV antibiotics infectious disease is following. Patient denies chest pain or shortness breath. Patient denies nausea vomiting or diarrhea. patient denies any urinary burning or frequency On 07/03/2019 patient alert and oriented 3. Plans for further testing on peripheral blood for IDH2 mutation per oncology services to drive plan of care. Patient does have rash to neck and upper chest area per nursing staff infectious disease did evaluate no intervention at this time rash does appear to be improving. Patient denies chest pain or shortness of breath. Patient denies nausea vomiting or diarrhea. Patient denies any urinary burning or frequency. Objective - Vital Signs Vital signs: Vital Signs Temp 97.4 F L 07/03/19 05:00 Pulse 95 07/03/19 05:00 Resp 16 07/03/19 05:00 BP 132/80 07/03/19 05:41 Pulse Ox 98 07/03/19 05:00 Intake & Output 07/02/19 07/03/19 07/03/19 18:59 06:59 18:59 Intake Total 1012 1190 Balance 1012 1190 Intake: Intake, IV Titration 350 600 Amount Cefepime 2 gm In Sodium 200 Chloride 0.9% 100 ml @ 200 mls/hr IVPB Q12H [facility] Rx#:[id number] Sodium Chloride 0.9% 1, 350 400 000 ml @ 50 mls/hr IV . Q20H [facility] Rx#:[id number] Oral [id number] Other: Voiding Method Diaper Diaper Diaper # Voids 1 3 - Exam In general patient is alert and oriented 3 in no apparent distress HEENT head normocephalic and atraumatic. Red raised rash to neck and upper chest area Neck is supple no JVD no goiter no lymphadenopathy Chest exam reveals a few scattered crackles no wheezing Cardiac exam reveals regular heart sounds S1 and S2 no gallops no murmurs Abdomen is soft nontender no organomegaly with normal bowel sounds Extremity exam reveals 2+ edema no cyanosis or clubbing Neurological examination reveals generalized weakness without any focal neurological deficit - Labs CBC & Chem 7: 07/03/19 07:32 07/03/19 07:32 Labs: Abnormal Lab Results - Last 24 Hours (Table) 06/29/19 06/30/19 06/30/19 Range/Units 18:40 08:33 12:02 WBC (3.8-10.6) k/uL RBC (3.80-5.40) m/uL Hgb (11.4-16.0) gm/dL Hct (34.0-46.0) % RDW (11.5-15.5) % Plt Count (150-450) k/uL Blast Cells % 39 H* 27 H* 41 H* % Neutrophils # (Manual) 8.50 H 9.90 H (1.3-7.7) k/uL Lymphocytes # (Manual) 5.70 H 5.89 H 6.07 H (1.0-4.8) k/uL Monocytes # (Manual) 30.62 H 14.50 H 14.48 H (0-1.0) k/uL Basophils # (Manual) 0.47 H (0-0.2) k/uL Metamyelocytes # (Man) 1.36 H 1.40 H (0) k/uL Myelocytes # (Manual) 1.36 H 0.47 H (0) k/uL Blast Cells # (Man) 27.77 H 12.23 H 19.15 H (0) k/uL POC Glucose (mg/dL) (75-99) mg/dL Calcium (8.4-10.2) mg/dL Total Protein (6.3-8.2) g/dL Albumin (3.5-5.0) g/dL 07/02/19 07/02/19 07/02/19 Range/Units 11:17 17:19 20:15 WBC (3.8-10.6) k/uL RBC (3.80-5.40) m/uL Hgb (11.4-16.0) gm/dL Hct (34.0-46.0) % RDW (11.5-15.5) % Plt Count (150-450) k/uL Blast Cells % % Neutrophils # (Manual) (1.3-7.7) k/uL Lymphocytes # (Manual) (1.0-4.8) k/uL Monocytes # (Manual) (0-1.0) k/uL Basophils # (Manual) (0-0.2) k/uL Metamyelocytes # (Man) (0) k/uL Myelocytes # (Manual) (0) k/uL Blast Cells # (Man) (0) k/uL POC Glucose (mg/dL) 108 H 101 H 117 H (75-99) mg/dL Calcium (8.4-10.2) mg/dL Total Protein (6.3-8.2) g/dL Albumin (3.5-5.0) g/dL 07/03/19 07/03/19 07/03/19 Range/Units 07:07 07:32 07:32 WBC 12.5 H (3.8-10.6) k/uL RBC 2.56 L (3.80-5.40) m/uL Hgb 8.4 L (11.4-16.0) gm/dL Hct 24.9 L (34.0-46.0) % RDW 19.7 H (11.5-15.5) % Plt Count 89 L (150-450) k/uL Blast Cells % 22 H* % Neutrophils # (Manual) (1.3-7.7) k/uL Lymphocytes # (Manual) (1.0-4.8) k/uL Monocytes # (Manual) 4.63 H (0-1.0) k/uL Basophils # (Manual) (0-0.2) k/uL Metamyelocytes # (Man) 0.13 H (0) k/uL Myelocytes # (Manual) 0.13 H (0) k/uL Blast Cells # (Man) 2.75 H (0) k/uL POC Glucose (mg/dL) 107 H (75-99) mg/dL Calcium 8.0 L (8.4-10.2) mg/dL Total Protein 5.6 L (6.3-8.2) g/dL Albumin 2.7 L (3.5-5.0) g/dL 07/03/19 Range/Units 11:09 WBC (3.8-10.6) k/uL RBC (3.80-5.40) m/uL Hgb (11.4-16.0) gm/dL Hct (34.0-46.0) % RDW (11.5-15.5) % Plt Count (150-450) k/uL Blast Cells % % Neutrophils # (Manual) (1.3-7.7) k/uL Lymphocytes # (Manual) (1.0-4.8) k/uL Monocytes # (Manual) (0-1.0) k/uL Basophils # (Manual) (0-0.2) k/uL Metamyelocytes # (Man) (0) k/uL Myelocytes # (Manual) (0) k/uL Blast Cells # (Man) (0) k/uL POC Glucose (mg/dL) 126 H (75-99) mg/dL Calcium (8.4-10.2) mg/dL Total Protein (6.3-8.2) g/dL Albumin (3.5-5.0) g/dL Microbiology - Last 24 Hours (Table) 06/30/19 16:00 Catheter Tip Culture - Final Picc Line Staphylococcus epidermidis 06/30/19 12:41 Blood Culture - Preliminary Blood No Growth after 48 hours 06/30/19 12:02 Blood Culture - Preliminary Blood No Growth after 48 hours Assessment and Plan Assessment: #1 severe generalized weakness. Physical therapy has been consulted #2 bilateral lower extremity edema #3 underlying history of acute myeloid leukemia. 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 Awaiting final pathology for IDH2 mutation per oncology to determine next step and plan of care #4 severe leukocytosis. PICC line culture positive for coagulase-negative staph. Infectious disease is following. Patient was given hydroxyurea white blood cell improving. #5 acute low back pain #6 underlying history of diabetes mellitus #7 underlying history of hypertension #8 underlying history of hyperlipidemia #9 rash to neck and upper chest does appear to be improving was evaluated by infectious disease no intervention at this time continue to monitor DVT prophylaxis SCDs due to pancytopenia. GI prophylaxis Pepcid Oncology consultation and infectious disease consultation request. Patient started on triple antibiotic therapy by oncology awaiting infectious disease input Prognosis guarded due to severe underlying medical problems Dr. Salamanca consulted for inpatient rehab I performed an examination of the patient and discussed their management with the Nurse Practitioner. I have reviewed the Nurse Practitioner's notes and agree with the documented findings and plan of care
--- NOTE | 2019-07-03 16:15 | P.CONS ---
History of Present Illness - Chief Complaint Medical debility - History of Present Illness I had the opportunity to see patient for inpatient rehab consultation with regard to medical debility. She was admitted to [facility] June 29 as a transfer Marylou unknown AML, generalized weakness and inability to walk. Seen by Dr. Mendoza for leukocytosis. Chest x-ray negative. Venous Doppler negative for DVT right and left leg. CT of the thoracic and lumbar spine demonstrates thoracic levoscoliosis, calcified disks L4, 5 and diffuse DDD. PT reports minimal moderate assistance for bed mobility, transfers, gait 15 feet with roller walker. OT reports maximal assistance for lower dressing and toileting and moderate assistance functional mobility. Previous functional history as elicited from patient: 64-year-old right-handed white female who is lives and 2 floor home with . Patient retired in semiretired. does cooking, laundry, driving. Patient was independent with gait with roller walker and standing shower up until 2 weeks ago and since then she has had difficulty standing in all. Denies tobacco or alcohol. Dr. Fox is regular doctor. Review of Systems Review of systems: ENT: Denies sneezes or discharge. Eyes: Denies discharge or photophobia. Cardiac: Denies chest pain or palpitation. Pulmonary: Denies cough or shortness of breath. Breast: Denies discharge or lumps. Gastrointestinal: Denies nausea, emesis, constipation, diarrhea. Genitourinary: Denies discharge or frequency. Musculoskeletal: Denies muscle or bone aches. Neurologic: Severe weakness. Endocrine: Denies shakes or sweats. Oncology: Denies cancers. Dermatologic: Denies rash, itching, pruritus. ALLERGY/immunology: Denies sneezes, rashes. Past Medical History Past Medical History: Cancer, Diabetes Mellitus, Hyperlipidemia, Hypertension Additional Past Medical History / Comment(s): AML diagnosed 03/2019. chemo 05/07/2019 History of Any Multi-Drug Resistant Organisms: None Reported Past Surgical History: No Surgical Hx Reported Additional Past Surgical History / Comment(s): picc line. bone marrow bx Past Anesthesia/Blood Transfusion Reactions: No Reported Reaction Past Psychological History: No Psychological Hx Reported Smoking Status: Never smoker - Past Family History Mother Family Medical History: Cancer Medications and Allergies Home Medications Medication Instructions Recorded Confirmed Type Acetaminophen-Codeine 300-30mg 1 tab PO Q6H PRN 05/07/19 06/29/19 History [Tylenol w/codeine #3] Acyclovir [Zovirax] 400 mg PO BID #60 ml 05/25/19 06/29/19 Rx Citalopram Hydrobromide 20 mg PO DAILY #0 05/25/19 06/29/19 Rx [Citalopram HBr] Dronabinol [Marinol] 2.5 mg PO AC-BID #60 cap 05/25/19 06/29/19 Rx Loperamide [Imodium] 2 mg PO QID PRN #30 cap 05/25/19 06/29/19 Rx Metoprolol Tartrate [Lopressor] 25 mg PO TID #75 tab 05/25/19 06/29/19 Rx Prochlorperazine [Compazine] 10 mg PO Q6H PRN #45 tab 05/25/19 06/29/19 Rx ALPRAZolam [Xanax] 0.25 mg PO Q8HR PRN 06/29/19 06/29/19 History Potassium Chloride Oral Liquid 40 meq PO DAILY 06/29/19 06/29/19 History Allergies Allergy/AdvReac Type Severity Reaction Status Date / Time latex Allergy Rash/Hives Verified 06/29/19 17:43 Physical Exam Vitals: Vital Signs Temp Pulse Resp BP Pulse Ox 07/03/19 12:13 97.5 F L 70 20 130/84 97 07/03/19 05:41 132/80 07/03/19 05:00 97.4 F L 95 16 98 07/02/19 23:55 74 16 07/02/19 21:00 97.8 F 73 16 113/76 93 L Intake and Output 07/03/19 07/03/19 07/03/19 06:59 14:59 22:59 Intake Total 600 Balance 600 Intake: Intake, IV Titration 600 Amount Cefepime 2 gm In Sodium 200 Chloride 0.9% 100 ml @ 200 mls/hr IVPB Q12H [facility] Rx#:[id number] Sodium Chloride 0.9% 1, 400 000 ml @ 50 mls/hr IV . Q20H [facility] Rx#:[id number] Other: Voiding Method Diaper Diaper # Voids 3 Skin: Good color, texture, turgor. General: Overweight build and comfortable appearance. Head: Normocephalic, atraumatic. Eyes: Symmetric. Pupils equal round. Ears: Symmetric. Hearing within normal limits. Mouth: Clear. Neck: Supple. Carotid without bruit. Cardiac: Regular rate and rhythm. Lungs: Clear anteriorly and posteriorly. Abdomen: Soft active nontender. Extremities: Normal tone. Neurological: Mental status: Alert, cooperative, pleasant. Cranial nerves: Symmetric facial tone and trapezius. Motor: Actively moves all 4 limbs but less than antigravity throughout. Sensation: Intact throughout. DTRs: Symmetric and equal throughout. Mobility: Requires physical assistance for bed mobility. Results CBC & Chem 7: 07/03/19 07:32 07/03/19 07:32 Labs: Abnormal Lab Results - Last 24 Hours (Table) 07/02/19 07/02/19 07/03/19 Range/Units 17:19 20:15 07:07 WBC (3.8-10.6) k/uL RBC (3.80-5.40) m/uL Hgb (11.4-16.0) gm/dL Hct (34.0-46.0) % RDW (11.5-15.5) % Plt Count (150-450) k/uL Blast Cells % % Monocytes # (Manual) (0-1.0) k/uL Metamyelocytes # (Man) (0) k/uL Myelocytes # (Manual) (0) k/uL Blast Cells # (Man) (0) k/uL POC Glucose (mg/dL) 101 H 117 H 107 H (75-99) mg/dL Calcium (8.4-10.2) mg/dL Total Protein (6.3-8.2) g/dL Albumin (3.5-5.0) g/dL 07/03/19 07/03/19 07/03/19 Range/Units 07:32 07:32 11:09 WBC 12.5 H (3.8-10.6) k/uL RBC 2.56 L (3.80-5.40) m/uL Hgb 8.4 L (11.4-16.0) gm/dL Hct 24.9 L (34.0-46.0) % RDW 19.7 H (11.5-15.5) % Plt Count 89 L (150-450) k/uL Blast Cells % 22 H* % Monocytes # (Manual) 4.63 H (0-1.0) k/uL Metamyelocytes # (Man) 0.13 H (0) k/uL Myelocytes # (Manual) 0.13 H (0) k/uL Blast Cells # (Man) 2.75 H (0) k/uL POC Glucose (mg/dL) 126 H (75-99) mg/dL Calcium 8.0 L (8.4-10.2) mg/dL Total Protein 5.6 L (6.3-8.2) g/dL Albumin 2.7 L (3.5-5.0) g/dL Microbiology - Last 24 Hours (Table) 06/30/19 12:41 Blood Culture - Preliminary Blood No Growth after 72 hours 06/30/19 12:02 Blood Culture - Preliminary Blood No Growth after 72 hours 06/30/19 16:00 Catheter Tip Culture - Final Picc Line Staphylococcus epidermidis Assessment and Plan (1) Acute myelomonocytic leukemia not having achieved remission Current Visit: Yes Status: Acute Priority: High Code(s): C92.50 - ACUTE MY ELOMONOCYTIC LEUKEMIA, NOT HAVING ACHIEVED REMISSION SNOMED Code(s): 915156111 (2) Weakness generalized Current Visit: Yes Status: Acute Priority: High Code(s): R53.1 - WEAKNESS SNOMED Code(s): 63390290 Plan: Impression: 1. Medical debility. 2. AML. 3. Diabetes. 4. Hypertension. Comments and plan: At this time PT and OT are ongoing. Patient demonstrated ability tolerate 10-15 minute therapy session only currently. At this time endurance appears poor do not believe can tolerate full inpatient rehab program. Will require 24/7 care multiple person.
[2019-07-03 16:51] LABS: Glucose,Whole Blood 96 mg/dL (75-99)
[2019-07-03 20:04] VITALS: RESP 16
[2019-07-03 20:22] LABS: Glucose,Whole Blood 102 mg/dL (75-99)
--- NOTE | 2019-07-03 22:36 | P.PN ---
Subjective Progress Note Date: 07/03/19 64 year old woman Who presents to hospital with increasing weakness. She has a significant recent history of being diagnosed with myelomonocytic leukemia, she received her induction chemotherapy originally was doing relatively well but then had evidence of recurrence of the disease. Since that time she's had increasing weakness, and at admission was no longer able to walk because significant lower extremity weakness. At the time of presentation white count was 71,000 and consults been requested. The patient has no fevers chills or rigors or sweats. White count is already improving. She does feel quite poorly relates the bit of headache she had has resolved. She has no discomforts in her chest no change of her shortness of breath she is not having cough or sputum production no new abdominal pain, appetites been poor without nausea or emesis. She has no diarrhea. No dysuria. 07/03/2019 patient continues to feel poorly or headache though seems to be improved. She is not any further fever. No other new significant symptoms noted, she's been on hydroxyurea and her white blood cell count has fallen from 71,000-12,500. Objective - Vital Signs Vital signs: Vital Signs Temp 97.8 F 07/03/19 20:03 Pulse 88 07/03/19 20:03 Resp 16 07/03/19 20:03 BP 133/86 07/03/19 20:03 Pulse Ox 99 07/03/19 20:03 Intake & Output 07/03/19 07/03/19 07/04/19 06:59 18:59 06:59 Intake Total 1190 440 Balance 1190 440 Intake: Intake, IV Titration 600 200 Amount Cefepime 2 gm In Sodium 200 Chloride 0.9% 100 ml @ 200 mls/hr IVPB Q12H LAST Rx#:[id number] Sodium Chloride 0.9% 1, 400 200 000 ml @ 50 mls/hr IV . Q20H LAST Rx#:[id number] Oral 590 240 Other: Voiding Method Diaper Diaper # Voids 3 5 - Exam Chronically ill-appearing woman, alopecia HEENT: Anicteric conjunctiva are pale but moist nasal mucosa grossly intact without significant lesions, there is no thrush. Neck: The neck is supple without significant lymphadenopathy or thyromegaly. Lungs: Good bilateral air entry without significant crackles or wheezing. There is no significant bronchial sounds. There is no egophony or dullness. Heart: Regular rate and rhythm with an audible S1-S2, no S3 no S4. There is no significant murmur click or rub, PMI was nondisplaced. Abdomen: Positive bowel sounds soft and nontender without palpable masses or organomegaly. There was no guarding or rebound. Extremities: The upper extremities have excellent pulses they are symmetric, no significant petechiae or telangiectasia. No splinter hemorrhages were noted. The lower extremities are free from significant edema. The peripheral pulses were 2+ and symmetric. Neuro: Awake alert oriented to person place and time has generalized weakness but is able to move all extremities upon command - Labs CBC & Chem 7: 07/03/19 07:32 07/03/19 07:32 Labs: Abnormal Lab Results - Last 24 Hours (Table) 07/03/19 07/03/19 07/03/19 Range/Units 07:07 07:32 07:32 WBC 12.5 H (3.8-10.6) k/uL RBC 2.56 L (3.80-5.40) m/uL Hgb 8.4 L (11.4-16.0) gm/dL Hct 24.9 L (34.0-46.0) % RDW 19.7 H (11.5-15.5) % Plt Count 89 L (150-450) k/uL Blast Cells % 22 H* % Monocytes # (Manual) 4.63 H (0-1.0) k/uL Metamyelocytes # (Man) 0.13 H (0) k/uL Myelocytes # (Manual) 0.13 H (0) k/uL Blast Cells # (Man) 2.75 H (0) k/uL POC Glucose (mg/dL) 107 H (75-99) mg/dL Calcium 8.0 L (8.4-10.2) mg/dL Total Protein 5.6 L (6.3-8.2) g/dL Albumin 2.7 L (3.5-5.0) g/dL 07/03/19 07/03/19 Range/Units 11:09 20:20 WBC (3.8-10.6) k/uL RBC (3.80-5.40) m/uL Hgb (11.4-16.0) gm/dL Hct (34.0-46.0) % RDW (11.5-15.5) % Plt Count (150-450) k/uL Blast Cells % % Monocytes # (Manual) (0-1.0) k/uL Metamyelocytes # (Man) (0) k/uL Myelocytes # (Manual) (0) k/uL Blast Cells # (Man) (0) k/uL POC Glucose (mg/dL) 126 H 102 H (75-99) mg/dL Calcium (8.4-10.2) mg/dL Total Protein (6.3-8.2) g/dL Albumin (3.5-5.0) g/dL Microbiology - Last 24 Hours (Table) 06/30/19 12:41 Blood Culture - Preliminary Blood No Growth after 72 hours 06/30/19 12:02 Blood Culture - Preliminary Blood No Growth after 72 hours 06/30/19 16:00 Catheter Tip Culture - Final Picc Line Staphylococcus epidermidis Laboratory Results WBC 12.5 k/uL (3.8-10.6) H 07/03/19 07:32 RBC 2.56 m/uL (3.80-5.40) L 07/03/19 07:32 Hgb 8.4 gm/dL (11.4-16.0) L 07/03/19 07:32 Hct 24.9 % (34.0-46.0) L 07/03/19 07:32 MCV 97.1 fL (80.0-100.0) 07/03/19 07:32 MCH 32.9 pg (25.0-35.0) 07/03/19 07:32 MCHC 33.9 g/dL (31.0-37.0) 07/03/19 07:32 RDW 19.7 % (11.5-15.5) H 07/03/19 07:32 Plt Count 89 k/uL (150-450) L 07/03/19 07:32 Neutrophils % ALTERNATIVE DISPUTE RESOLUTION MEDIATOR 07/01/19 11:51 Neutrophils % (Manual) 16 % 07/03/19 07:32 Band Neutrophils % 3 % 07/03/19 07:32 Lymphocytes % ALTERNATIVE DISPUTE RESOLUTION MEDIATOR 07/01/19 11:51 Lymphocytes % (Manual) 21 % 07/03/19 07:32 Monocytes % ALTERNATIVE DISPUTE RESOLUTION MEDIATOR 07/01/19 11:51 Monocytes % (Manual) 37 % 07/03/19 07:32 Eosinophils % ALTERNATIVE DISPUTE RESOLUTION MEDIATOR 07/01/19 11:51 Eosinophils % (Manual) 1 % 07/01/19 11:51 Basophils % ALTERNATIVE DISPUTE RESOLUTION MEDIATOR 07/01/19 11:51 Basophils % (Manual) 1 % 07/03/19 07:32 Metamyelocytes % 1 % 07/03/19 07:32 Myelocytes % 1 % 07/03/19 07:32 Blast Cells % 22 % H* 07/03/19 07:32 Neutrophils # ALTERNATIVE DISPUTE RESOLUTION MEDIATOR 07/01/19 11:51 Neutrophils # (Manual) 2.30 k/uL (1.3-7.7) 07/03/19 07:32 Lymphocytes # ALTERNATIVE DISPUTE RESOLUTION MEDIATOR 07/01/19 11:51 Lymphocytes # (Manual) 2.63 k/uL (1.0-4.8) 07/03/19 07:32 Monocytes # ALTERNATIVE DISPUTE RESOLUTION MEDIATOR 07/01/19 11:51 Monocytes # (Manual) 4.63 k/uL (0-1.0) H 07/03/19 07:32 Eosinophils # ALTERNATIVE DISPUTE RESOLUTION MEDIATOR 07/01/19 11:51 Eosinophils # (Manual) 0.22 k/uL (0-0.7) 07/01/19 11:51 Basophils # ALTERNATIVE DISPUTE RESOLUTION MEDIATOR 07/01/19 11:51 Basophils # (Manual) 0.13 k/uL (0-0.2) 07/03/19 07:32 Metamyelocytes # (Man) 0.13 k/uL (0) H 07/03/19 07:32 Myelocytes # (Manual) 0.13 k/uL (0) H 07/03/19 07:32 Blast Cells # (Man) 2.75 k/uL (0) H 07/03/19 07:32 Nucleated RBCs 0 /100 WBC (0-0) 07/03/19 07:32 Differential Comment 06/30/19 12:02 Manual Slide Review Performed 07/03/19 07:32 Pathologist Review Cancelled 07/01/19 11:51 Polychromasia Present 07/03/19 07:32 Hypochromasia (manual) Not Reportable 06/29/19 18:40 Poikilocytosis (manual Present 07/01/19 11:51 Anisocytosis Slight 07/03/19 07:32 Anisocytosis (manual) Not Reportable 06/29/19 18:40 Macrocytosis Slight 07/03/19 07:32 Stomatocytes Present 06/29/19 18:40 PT 12.0 sec (9.0-12.0) 06/30/19 12:02 INR 1.1 (<1.2) 06/30/19 12:02 APTT 23.8 sec (22.0-30.0) 06/30/19 12:02 Fibrinogen 263 mg/dL (200-500) 06/30/19 12:02 D-Dimer 0.53 mg/L FEU (<0.60) 06/30/19 12:02 Sodium 139 mmol/L (137-145) 07/03/19 07:32 Potassium 3.6 mmol/L (3.5-5.1) 07/03/19 07:32 Chloride 105 mmol/L (98-107) 07/03/19 07:32 Carbon Dioxide 29 mmol/L (22-30) 07/03/19 07:32 Anion Gap 5 mmol/L 07/03/19 07:32 BUN 13 mg/dL (7-17) 07/03/19 07:32 Creatinine 0.67 mg/dL (0.52-1.04) 07/03/19 07:32 Est GFR (CKD-EPI)AfAm >90 (>60 ml/min/1.73 sqM) 07/03/19 07:32 Est GFR (CKD-EPI)NonAf >90 (>60 ml/min/1.73 sqM) 07/03/19 07:32 Glucose 91 mg/dL (74-99) 07/03/19 07:32 POC Glucose (mg/dL) 102 mg/dL (75-99) H 07/03/19 20:20 POC Glu Extension Edger ID Zoey Chacko 07/03/19 20:20 Plasma Lactic Acid Myke 1.1 mmol/L (0.7-2.0) 06/29/19 17:45 Uric Acid 13.3 mg/dL (3.7-7.4) H 06/30/19 12:02 Calcium 8.0 mg/dL (8.4-10.2) L 07/03/19 07:32 Total Bilirubin 0.4 mg/dL (0.2-1.3) 07/03/19 07:32 AST 22 U/L (14-36) 07/03/19 07:32 ALT 20 U/L (9-52) 07/03/19 07:32 Alkaline Phosphatase 71 U/L (38-126) 07/03/19 07:32 Lactate Dehydrogenase 750 U/L (313-618) H 06/30/19 12:02 NT-Pro-B Natriuret Pep 1840 pg/mL 06/29/19 17:45 Total Protein 5.6 g/dL (6.3-8.2) L 07/03/19 07:32 Albumin 2.7 g/dL (3.5-5.0) L 07/03/19 07:32 Urine Color Light Yellow 06/30/19 14:00 Urine Appearance Cloudy (Clear) H 06/30/19 14:00 Urine pH 6.0 (5.0-8.0) 06/30/19 14:00 Ur Specific [place] 1.010 (1.001-1.035) 06/30/19 14:00 Urine Protein Trace (Negative) H 06/30/19 14:00 Urine Glucose (UA) Negative (Negative) 06/30/19 14:00 Urine Ketones Negative (Negative) 06/30/19 14:00 Urine Blood Trace (Negative) H 06/30/19 14:00 Urine Nitrite Negative (Negative) 06/30/19 14:00 Urine Bilirubin Negative (Negative) 06/30/19 14:00 Urine Urobilinogen <2.0 mg/dL (<2.0) 06/30/19 14:00 Ur Leukocyte Esterase Negative (Negative) 06/30/19 14:00 Urine RBC 2 /hpf (0-5) 06/30/19 14:00 Urine WBC 12 /hpf (0-5) H 06/30/19 14:00 Ur Squamous Epith Cells 4 /hpf (0-4) 06/30/19 14:00 Urine Bacteria Rare /hpf (None) H 06/30/19 14:00 Hyaline Casts 10 /lpf (0-2) H 06/30/19 14:00 Urine Mucus Rare /hpf (None) H 06/30/19 14:00 Vancomycin Trough 23.3 ug/mL 07/03/19 07:32 Miscellaneous Test AML Panel Periph Bld 07/02/19 11:15 Misc Test Result See comment 07/02/19 11:15 Microbiology 06/30/19 12:41 Blood Blood Culture - Preliminary No Growth after 72 hours 06/30/19 12:02 Blood Blood Culture - Preliminary No Growth after 72 hours 06/30/19 16:00 Picc Line Catheter Tip Culture - Final Staphylococcus epidermidis 06/30/19 14:00 Urine,Voided Urine Culture - Final Assessment and Plan (1) Leukocytosis Narrative/Plan: 64-year-old woman presents to hospital with profound weakness and inability to ambulate. 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 She has been treated with her first cycle of chemotherapy and originally appeared to have a good response however upon follow-up has evidence of ongoing leukocytosis and lack of remission. She's been evaluated on the transplant program however her performance status is to poor for her to proceed to bone marrow transplantation. At the time of presentation she is profoundly weak for many reasons including her anemia. Her white count did reach 71,000 which is no improvement to 22.5. She has been initiated antibiotic therapy with cefepime and vancomycin because of her history of leukemia and concerns of sepsis. Multiple cultures her progress. We'll rapidly de-escalate antibiotic therapy. Oncology has evaluated and I believe repeat bone marrow aspiration is planned in the near future. 07/03/2019 the patient is doing slightly better. Her significant elevated white blood cell count has decreased from 71,000-12,500. Oncology relates to her dosing of hydroxyurea. At this time no evidence of any infections or being found and if cultures remain negative would discontinue vancomycin therapy and then would discontinue the cefepime. Current Visit: Yes Status: Acute Priority: High Code(s): D72.829 - ELEVATED WHITE BLOOD CELL COUNT, UNSPECIFIED SNOMED Code(s): 644703966 (2) Acute myelomonocytic leukemia not having achieved remission Current Visit: Yes Status: Acute Priority: High Code(s): C92.50 - ACUTE MYELOMONOCYTIC LEUKEMIA, NOT HAVING ACHIEVED REMISSION SNOMED Code(s): 550180168
[2019-07-04] MEDS: CEFEPIME 2 GM in SODIUM CHLORIDE 0.9% 100 ML IVPB SCH (05:45)
[2019-07-04 05:53] VITALS: BP 171/77; PULSE 84; TEMP 97.7
[2019-07-04 07:26] LABS: Glucose,Whole Blood 96 mg/dL (75-99)
[2019-07-04 07:41] LABS: Anisocytosis Moderate; HCT 25.8 % (34.0-46.0); HGB 8.5 gm/dL (11.4-16.0); MCH 32.4 pg (25.0-35.0); MCHC 32.8 g/dL (31.0-37.0); MCV 98.8 fL (80.0-100.0); Macrocytosis Moderate; Mean Platelet Volume 7.6; RBC 2.61 m/uL (3.80-5.40); RDW 21.3 % (11.5-15.5)
[2019-07-04 07:46] LABS: Platelet Count 94 k/uL (150-450)
[2019-07-04 07:50] LABS: ALT 22 U/L (9-52); AST 31 U/L (14-36); African American GFR (CKD) >90 (>60 ml/min/1.73 sqM); Albumin 2.7 g/dL (3.5-5.0); Alkaline Phosphatase 76 U/L (38-126); Anion Gap 6 mmol/L; Blood Urea Nitrogen 10 mg/dL (7-17); Calcium 7.7 mg/dL (8.4-10.2); Carbon Dioxide 28 mmol/L (22-30); Chloride 105 mmol/L (98-107); Glucose 90 mg/dL (74-99); Potassium 3.9 mmol/L (3.5-5.1); Sodium 139 mmol/L (137-145); Total Bilirubin 0.5 mg/dL (0.2-1.3); Total Protein 5.6 g/dL (6.3-8.2)
[2019-07-04] MEDS: ACYCLOVIR 200 MG CAP PO SCH (08:21)
[2019-07-04] MEDS: MULTIVITAMINS, THERA 1 EACH TAB PO SCH (08:21)
[2019-07-04] MEDS: FAMOTIDINE 20 MG TAB PO SCH (08:21)
[2019-07-04] MEDS: DRONABINOL 2.5 MG CAP PO SCH (08:21)
[2019-07-04] MEDS: POTASSIUM BICARBONATE/CIT AC 20 MEQ TABLET.EFF PO SCH (08:21)
[2019-07-04] MEDS: SENNOSIDES-DOCUSATE SODIUM 1 EACH TAB PO SCH (08:21)
[2019-07-04] MEDS: CITALOPRAM HYDROBROMIDE 20 MG TAB PO SCH (08:21)
[2019-07-04] MEDS: METOPROLOL TARTRATE 25 MG TAB PO SCH ×2 (08:21→16:13)
[2019-07-04 08:43] LABS: Eosinophils # (M) 0.14 k/uL (0-0.7); Lymphocytes # (M) 2.86 k/uL (1.0-4.8); Neutrophils % (M) 18 %; Nucleated Red Blood Cells 2 /100 WBC (0-0); Total Cells Counted 200; WBC 13.6 k/uL (3.8-10.6)
[2019-07-04] MEDS ORDERED: VANCOMYCIN 1,500 MG in SODIUM CHLORIDE 0.9% 250 ML IVPB SCH (09:00)
[2019-07-04 11:06] LABS: Glucose,Whole Blood 99 mg/dL (75-99)
[2019-07-04] MEDS ORDERED: HYDROXYUREA 500 MG CAP PO SCH (12:30)
--- NOTE | 2019-07-04 15:06 | P.DS ---
Providers Date of admission: 06/29/19 20:19 Expected date of discharge: 07/04/19 Attending physician: Chris Galeana Consults: 06/29/19 20:20 Consult Physician Urgent Consulting Provider: Francisco Carson Consult Reason/Comments: acute leukocytosis, AML Do you want consulting provider notified?: Already Contacted 06/30/19 16:09 Consult Physician Urgent Consulting Provider: Kane Mendoza Consult Reason/Comments: AML/WBC 46.7 Do you want consulting provider notified?: Yes 07/03/19 09:48 Consult Physician Routine Consulting Provider: Luis Carlos Salamanca Consult Reason/Comments: assess for inpatient rehab Do you want consulting provider notified?: Yes Primary care physician: Kat Fox Hospital Course: Discharge diagnosis #1 severe generalized weakness. Physical therapy has been consulted #2 bilateral lower extremity edema #3 underlying history of acute myeloid leukemia. 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 Awaiting final pathology for IDH2 mutation per oncology to determine next step and plan of care #4 severe leukocytosis. PICC line culture positive for coagulase-negative staph. Infectious disease is following. Patient was given hydroxyurea white blood cell improving. Discussed case with infectious disease and oncology services no need for antibiotics. Patient will be discharged on Diflucan prophylactically #5 acute low back pain #6 underlying history of diabetes mellitus #7 underlying history of hypertension #8 underlying history of hyperlipidemia #9 rash to neck and upper chest does appear to be improving was evaluated by infectious disease no intervention at this time continue to monitor Hospital course Mey Hernandez, she is a 64-year-old female was known history of AML who presented to [facility] as a transfer from [facility] due to severe weakness and bilateral lower extremity edema, symptoms started about 7 days ago and has been worsening, she was evaluated in the emergency room, bilateral lower extremity Doppler was negative for DVT, blood culture and urine cultures were ordered, white blood count was significantly elevated at 71,000, she was admitted to medical floor and the oncology consultation was requested. Patient was also complaining of lower back pain computed tomography scan of the thoracic spine and the lumbar spine was done and did not reveal any acute abnormality. On 07/01/2019 patient was seen and examined on the medical floor she is feeling somewhat better less tired today, there is no fever or chills no headache or dizziness no chest pain no shortness of breath no cough no nausea or vomiting no abdominal pain no diarrhea and no urinary symptoms. Triple antibiotic coverage was added by oncology yesterday, awaiting infectious disease input. On 07/02/2019 alert and oriented 3. Patient reports she is feeling improved. Possible bone marrow biopsy per oncology. White blood cell is improving to 17.4. Patient remains on Maxipime and vancomycin for IV antibiotics infectious disease is following. Patient denies chest pain or shortness breath. Patient denies nausea vomiting or diarrhea. patient denies any urinary burning or frequency On 07/03/2019 patient alert and oriented 3. Plans for further testing on peripheral blood for IDH2 mutation per oncology services to drive plan of care. Patient does have rash to neck and upper chest area per nursing staff infectious disease did evaluate no intervention at this time rash does appear to be improving. Patient denies chest pain or shortness of breath. Patient denies nausea vomiting or diarrhea. Patient denies any urinary burning or frequency. On 07/04/2019 patient's alert and oriented 3. Discussed case with both o ncology and infectious disease patient has been cleared for discharge to inpatient rehab. No need for antibiotics per ID or oncology services. Patient to follow-up closely with oncology services for further plan of care. At this time patient is eager to go to inpatient rehab patient denies chest pain or shortness of breath. Patient denies nausea vomiting or diarrhea. Patient denies any urinary burning or frequency rash to neck and upper chest does appear to be improving. Per ID PICC line positive for Staphylococcus epidermis likely contamination blood cultures negative. White blood cells 13.6, platelets 94, blast cells 11, hemoglobin 8.5 I performed an examination of the patient and discussed their management with the Nurse Practitioner. I have reviewed the Nurse Practitioner's notes and agree with the documented findings and plan of care Patient Condition at Discharge: Stable Plan - Discharge Summary New Discharge Prescriptions: New Multivitamins, Thera [Multivitamin (formulary)] 1 each PO DAILY tab Sennosides-Docusate Sodium [Senokot-S] 2 each PO BID tab Fluconazole [Diflucan] 100 mg PO DAILY 30 Days #30 tab Hydroxyurea [Hydrea] 500 mg PO DAILY 30 Days #30 cap Continue Acetaminophen-Codeine 300-30mg [Tylenol w/codeine #3] 1 tab PO Q6H PRN PRN Reason: Pain Metoprolol Tartrate [Lopressor] 25 mg PO TID #75 tab Prochlorperazine [Compazine] 10 mg PO Q6H PRN #45 tab PRN Reason: nausea Loperamide [Imodium] 2 mg PO QID PRN #30 cap PRN Reason: Diarrhea Dronabinol [Marinol] 2.5 mg PO AC-BID #60 cap Acyclovir [Zovirax] 400 mg PO BID #60 ml Potassium Chloride Oral Liquid 40 meq PO DAILY ALPRAZolam [Xanax] 0.25 mg PO Q8HR PRN PRN Reason: Anxiety Citalopram Hydrobromide [Citalopram HBr] 20 mg PO DAILY #0 Discharge Medication List Acetaminophen-Codeine 300-30mg [Tylenol w/codeine #3] 1 tab PO Q6H PRN 05/07/19 [History] Acyclovir [Zovirax] 400 mg PO BID #60 ml 05/25/19 [Rx] Dronabinol [Marinol] 2.5 mg PO AC-BID #60 cap 05/25/19 [Rx] Loperamide [Imodium] 2 mg PO QID PRN #30 cap 05/25/19 [Rx] Metoprolol Tartrate [Lopressor] 25 mg PO TID #75 tab 05/25/19 [Rx] Prochlorperazine [Compazine] 10 mg PO Q6H PRN #45 tab 05/25/19 [Rx] ALPRAZolam [Xanax] 0.25 mg PO Q8HR PRN 06/29/19 [History] Potassium Chloride Oral Liquid 40 meq PO DAILY 06/29/19 [History] Citalopram Hydrobromide [Citalopram HBr] 20 mg PO DAILY #0 07/04/19 [Rx] Fluconazole [Diflucan] 100 mg PO DAILY 30 Days #30 tab 07/04/19 [Rx] Hydroxyurea [Hydrea] 500 mg PO DAILY 30 Days #30 cap 07/04/19 [Rx] Multivitamins, Thera [Multivitamin (formulary)] 1 each PO DAILY tab 07/04/19 [Rx] Sennosides-Docusate Sodium [Senokot-S] 2 each PO BID tab 09/11/19 [Rx] Follow up Appointment(s)/Referral(s): Francisco Carson MD [STAFF PHYSICIAN] - 1 Week Kat Fox MD [Primary Care Provider] - 1-2 days Activity/Diet/Wound Care/Special Instructions: Patient to be transferred to inpatient rehab at [facility] Activity as tolerated Diet heart healthy Hold Celexa until completion of Diflucan Discharge Disposition: OTHER INSTITUTION NOT DEFINED
--- NOTE | 2019-07-04 17:43 | P.PN ---
Subjective Progress Note Date: 07/04/19 Principal diagnosis: Profound weakness, unfortunate recurrence of AML In f/u today pt continues to c/o weakness but, She certainly has a different approach and is very motivated. Patient had a bowel movement today and states feeling significantly better. No fever, nausea, difficulty in breathing, swelling in the lower extremities. Objective - Vital Signs Vital signs: Vital Signs Temp 97.7 F 07/04/19 05:00 Pulse 84 07/04/19 05:00 Resp 16 07/04/19 05:00 BP 171/77 07/04/19 05:00 Pulse Ox 100 07/04/19 05:00 Intake & Output 07/03/19 07/04/19 07/04/19 18:59 06:59 18:59 Intake Total 1730 Balance 1730 Weight 83.007 kg Intake: Intake, IV Titration 900 Amount Cefepime 2 gm In Sodium 100 Chloride 0.9% 100 ml @ 200 mls/hr IVPB Q12H LAST Rx#:[id number] Sodium Chloride 0.9% 1, 800 000 ml @ 50 mls/hr IV . Q20H LAST Rx#:[id number] Oral 830 Other: Voiding Method Diaper Diaper Bedside Commode Incontinent Diaper Incontinent # Voids 5 5 1 # Bowel Movements 1 - Constitutional General appearance: Present: cooperative, no acute distress, obese - EENT Eyes: Present: anicteric sclerae, EOMI ENT: Present: hearing grossly normal - Respiratory Respiratory: bilateral: CTA - Cardiovascular Rhythm: regular Heart sounds: normal: S1, S2 Abnormal Heart Sounds: Absent: systolic murmur, diastolic murmur, rub, S3 Gallop, S4 Gallop, click, other - Peripheral edema leg Peripheral Edema: bilateral: None - Gastrointestinal General gastrointestinal: Present: normal bowel sounds, soft - Neurologic Neurologic: Present: CNII-XII intact - Musculoskeletal Musculoskeletal: Present: generalized weakness - Psychiatric Psychiatric: Present: A&O x's 3, appropriate affect, intact judgment & insight - Allied health notes Allied health notes reviewed: PT - Labs CBC & Chem 7: 07/04/19 07:10 07/04/19 07:10 Labs: Abnormal Lab Results - Last 24 Hours (Table) 06/29/19 07/03/19 07/04/19 Range/Units 18:40 20:20 07:10 WBC 71.2 H* 13.6 H (3.8-10.6) k/uL RBC 2.93 L 2.61 L (3.80-5.40) m/uL Hgb 9.3 L 8.5 L (11.4-16.0) gm/dL Hct 28.1 L 25.8 L (34.0-46.0) % RDW 20.6 H 21.3 H (11.5-15.5) % Plt Count 114 L D 94 L (150-450) k/uL Blast Cells % 39 H* 11 H* % Neutrophils # (Manual) 8.50 H (1.3-7.7) k/uL Lymphocytes # (Manual) 5.70 H (1.0-4.8) k/uL Monocytes # (Manual) 30.62 H 6.80 H (0-1.0) k/uL Blast Cells # (Man) 27.77 H 1.50 H (0) k/uL Nucleated RBCs 2 H (0-0) /100 WBC POC Glucose (mg/dL) 102 H (75-99) mg/dL Calcium (8.4-10.2) mg/dL Total Protein (6.3-8.2) g/dL Albumin (3.5-5.0) g/dL 07/04/19 Range/Units 07:10 WBC (3.8-10.6) k/uL RBC (3.80-5.40) m/uL Hgb (11.4-16.0) gm/dL Hct (34.0-46.0) % RDW (11.5-15.5) % Plt Count (150-450) k/uL Blast Cells % % Neutrophils # (Manual) (1.3-7.7) k/uL Lymphocytes # (Manual) (1.0-4.8) k/uL Monocytes # (Manual) (0-1.0) k/uL Blast Cells # (Man) (0) k/uL Nucleated RBCs (0-0) /100 WBC POC Glucose (mg/dL) (75-99) mg/dL Calcium 7.7 L (8.4-10.2) mg/dL Total Protein 5.6 L (6.3-8.2) g/dL Albumin 2.7 L (3.5-5.0) g/dL Microbiology - Last 24 Hours (Table) 06/30/19 12:41 Blood Culture - Preliminary Blood No Growth after 72 hours 06/30/19 12:02 Blood Culture - Preliminary Blood No Growth after 72 hours Assessment and Plan (1) Weakness generalized Narrative/Plan: The discussion yesterday was reinforced today. Patient is motivated, this was confirmed by Case Management as well as Physical Therapist. Despite patient not being a good candidate for inpatient rehab, per Dr. Salamanca, the inpatient rehabilitation unit is going to take the patient and attempt to help her performance status improved. We'll continue to follow with patient in rehabilitation. 07/04/19 discussion carried over: After assisting staff with the patient yesterday to the bedside commode and physical examination of lower extremity muscle strength there is no objective evidence to explain patient's claim of profound weakness. Was explained to patient today that she is not a candidate for treatment of her acute leukemia without significant improvement in her performance status. Patient needs to be able to walk independently and care for herself in order to tolerate treatment. It was also explained to the patient that without treatment she would likely succumb to this disease within the next 1-2 months. Patient did seem a bit more motivated to participate in physical therapy. Explained to patient that she needs to be very pro active in moving herself around, changing positions, performing the exercise regimens that physical therapy has recommended for her. Status: Acute Priority: High Code(s): R53.1 - WEAKNESS SNOMED Code(s): 93452612 (2) Acute myelomonocytic leukemia not having achieved remission Narrative/Plan: Plan is the same as previously stated-Patient was in remission after induction chemotherapy. She went to see BMT team in [place] last week but, due to her very poor performance status she was not a candidate for transplant. Un fortunately, patient has evidence of recurrence, very rapidly after induction. 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 Due to the possibility of change or new mutation specimen has been sent for testing to see if the IDH 2 mutation still exists. Pending results of testing. Status: Acute Priority: High Code(s): C92.50 - ACUTE MYELOMONOCYTIC LEUKEMIA, NOT HAVING ACHIEVED REMISSION SNOMED Code(s): 566592700 (3) Leukocytosis Narrative/Plan: Secondary to relapsed AML. Still elevated but, improved and stable status post high dose Hydrea 1. Patient is going to be placed on a 500 mg Hydrea dose daily for maintenance until she has had the opportunity to rehabilitate. Status: Acute Priority: High Code(s): D72.829 - ELEVATED WHITE BLOOD CELL COUNT, UNSPECIFIED SNOMED Code(s): 197270089 (4) Bicytopenia Narrative/Plan: Secondary to AML. Not requiring intervention, this will continue to be monitored Status: Acute Priority: High Code(s): D75.89 - OTHER SPECIFIED DISEASES OF BLOOD AND BLOOD-FORMING ORGANS SNOMED Code(s): 64951925 (5) Constipation Status: Resolved Priority: High Code(s): K59.00 - CONSTIPATION, UNSPECIFIED SNOMED Code(s): 59355723
== END 2019-07-04 16:20 | DRG 836 ==
LOC: EC 16:59 → 3NMEDONC 20:19
PROVIDERS: ADMIT Internal Medicine; ATTEND Internal Medicine
DX: C92.50 Acute myelomonocytic leukemia, not having achieved remission (principal); E11.9 Type 2 diabetes mellitus without complications; E78.5 Hyperlipidemia, unspecified; I10 Essential (primary) hypertension; D63.8 Anemia in other chronic diseases classified elsewhere; D69.6 Thrombocytopenia, unspecified; K59.00 Constipation, unspecified; R53.1 Weakness; R60.0 Localized edema; M41.9 Scoliosis, unspecified; M51.36 Other intervertebral disc degeneration, lumbar region; Z79.899 Other long term (current) drug therapy; Z80.9 Family history of malignant neoplasm, unspecified; Z91.040 Latex allergy status
CPT/HCPCS: 36415; 71046; 72128; 72131; 80048; 80053; 80202; 81001; 83605; 83615; 83880; 84550; 85025; 85379; 85384; 85610; 85730; 87040; 87070; 87077; 87086; 87186; 93005; 93970; 99285

== ENCOUNTER 2019-09-09 11:46 | Inpatient (IN) | payer MEDICARE ==
--- NOTE | 2019-09-09 12:40 | ED ---
GI Bleed HPI - General Chief complaint: GI Bleed Stated complaint: rectal bleeding Time Seen by Provider: 09/09/19 12:07 Source: patient, family, RN notes reviewed Mode of arrival: wheelchair Limitations: no limitations - History of Present Illness Initial comments: This is a 64-year-old female with a history of AML diabetes and anemia likely from the AML who presents today with complaints of bright red blood per rectum that started this morning she has no abdominal pain she has had some lightheadedness she states. No prior history of GI bleeding. She has had blood transfusions in the past. No chest pain no shortness breath no other new symptoms. MD complaint: gross hematochezia - Related Data Home Medications Medication Instructions Recorded Confirmed Acetaminophen-Codeine 300-30mg 1 tab PO Q6H PRN 05/07/19 09/09/19 [Tylenol w/codeine #3] ALPRAZolam [Xanax] 0.25 mg PO Q6H PRN 06/29/19 09/09/19 Potassium Chloride Oral Liquid 40 meq PO DAILY@0700 06/29/19 09/09/19 Acyclovir [Zovirax] 400 mg PO BID@0700,2100 09/09/19 09/09/19 Allopurinol [Zyloprim] 100 mg PO DAILY@0700 09/09/19 09/09/19 Cetirizine HCl [Zyrtec] 10 mg PO DAILY@0700 09/09/19 09/09/19 Citalopram Hydrobromide [CeleXA] 20 mg PO DAILY@0700 09/09/19 09/09/19 Digoxin [Lanoxin] 125 mcg PO DAILY@0700 09/09/19 09/09/19 Dronabinol [Marinol] 2.5 mg PO BID@0700,1700 09/09/19 09/09/19 Enasidenib Mesylate [Idhifa] 100 mg PO DAILY@1700 09/09/19 09/09/19 Metoprolol Tartrate [Lopressor] 50 mg PO BID@0700,1700 09/09/19 09/09/19 Multivitamins, Thera [Multivitamin 1 tab PO DAILY 09/09/19 09/09/19 (formulary)] Ondansetron [Zofran] 4 mg PO Q8H PRN 09/09/19 09/09/19 Previous Rx's Medication Instructions Recorded Loperamide [Imodium] 2 mg PO QID PRN #30 cap 05/25/19 Allergies Allergy/AdvReac Type Severity Reaction Status Date / Time latex Allergy Rash/Hives Verified 09/09/19 14:31 Review of Systems ROS Statement: Those systems with pertinent positive or pertinent negative responses have been documented in the HPI. ROS Other: All systems not noted in ROS Statement are negative. Past Medical History Past Medical History: Cancer, Diabetes Mellitus, Hyperlipidemia, Hypertension Additional Past Medical History / Comment(s): AML diagnosed 03/2019. chemo 05/07/2019 History of Any Multi-Drug Resistant Organisms: None Reported Past Surgical History: No Surgical Hx Reported Additional Past Surgical History / Comment(s): picc line. bone marrow bx Past Anesthesia/Blood Transfusion Reactions: No Reported Reaction Past Psychological History: No Psychological Hx Reported Smoking Status: Never smoker - Past Family History Mother Family Medical History: Cancer General Exam - General Exam Comments Initial Comments: This is a well-developed well-nourished awake alert oriented 3 female Limitations: no limitations General appearance: alert, in no apparent distress Head exam: Present: atraumatic, normocephalic, normal inspection Eye exam: Present: normal appearance, PERRL, EOMI. Absent: scleral icterus, con junctival injection, periorbital swelling ENT exam: Present: normal exam, mucous membranes moist Neck exam: Present: normal inspection. Absent: tenderness, meningismus, lymphadenopathy Respiratory exam: Present: normal lung sounds bilaterally. Absent: respiratory distress, wheezes, rales, rhonchi, stridor Cardiovascular Exam: Present: regular rate, normal rhythm, normal heart sounds. Absent: systolic murmur, diastolic murmur, rubs, gallop, clicks GI/Abdominal exam: Present: soft, normal bowel sounds. Absent: distended, tenderness, guarding, rebound, rigid, bruit, pulsatile mass Rectal exam: Present: heme (+) stool (HEENT positive burgundy-colored stool no masses palpable at this time) Extremities exam: Present: normal inspection, full ROM, normal capillary refill. Absent: tenderness, pedal edema, joint swelling, calf tenderness Back exam: Present: normal inspection Neurological exam: Present: alert, oriented X3, CN II-XII intact Psychiatric exam: Present: normal affect, normal mood Skin exam: Present: warm, dry, intact, normal color. Absent: rash Course Vital Signs 09/09/19 09/09/19 09/09/19 11:52 12:44 12:46 Temperature 98.5 F 97.6 F Pulse Rate 93 85 Respiratory 16 16 Rate Blood Pressure 96/68 104/70 104/70 O2 Sat by Pulse 100 97 Oximetry 09/09/19 09/09/19 09/09/19 13:00 13:30 14:00 Temperature Pulse Rate Respiratory Rate Blood Pressure 104/70 106/73 111/75 O2 Sat by Pulse 97 96 97 Oximetry 09/09/19 14:03 Temperature Pulse Rate Respiratory 16 Rate Blood Pressure O2 Sat by Pulse Oximetry - Reevaluation(s) Reevaluation #1: 09/09/19 14:39 The patient reports no further bleeding at this time to develop some petechial- appearing hemorrhage to the right upper extremity this is on the same side that the IV was placed. Medical Decision Making - Lab Data Result diagrams: 09/09/19 14:05 09/09/19 12:55 Lab Results 09/09/19 09/09/19 09/09/19 Range/Units 12:30 12:55 12:55 WBC (3.8-10.6) k/uL RBC (3.80-5.40) m/uL Hgb (11.4-16.0) gm/dL Hct (34.0-46.0) % MCV (80.0-100.0) fL MCH (25.0-35.0) pg MCHC (31.0-37.0) g/dL RDW (11.5-15.5) % Plt Count (150-450) k/uL Neutrophils % (Manual) % Band Neutrophils % % Lymphocytes % (Manual) % Monocytes % (Manual) % Eosinophils % (Manual) % Metamyelocytes % % Myelocytes % % Neutrophils # (Manual) (1.3-7.7) k/uL Lymphocytes # (Manual) (1.0-4.8) k/uL Monocytes # (Manual) (0-1.0) k/uL Eosinophils # (Manual) (0-0.7) k/uL Metamyelocytes # (Man) (0) k/uL Myelocytes # (Manual) (0) k/uL Nucleated RBCs (0-0) /100 WBC Manual Slide Review Poikilocytosis (manual Anisocytosis Macrocytosis PT (9.0-12.0) sec INR (<1.2) APTT (22.0-30.0) sec Sodium 138 (137-145) mmol/L Potassium 4.3 (3.5-5.1) mmol/L Chloride 103 (98-107) mmol/L Carbon Dioxide 24 (22-30) mmol/L Anion Gap 11 mmol/L BUN 16 (7-17) mg/dL Creatinine 1.38 H (0.52-1.04) mg/dL Est GFR (CKD-EPI)AfAm 46 (>60 ml/min/1.73 sqM) Est GFR (CKD-EPI)NonAf 40 (>60 ml/min/1.73 sqM) Glucose 99 (74-99) mg/dL Calcium 8.5 (8.4-10.2) mg/dL Magnesium 1.8 (1.6-2.3) mg/dL Total Bilirubin 2.5 H (0.2-1.3) mg/dL AST 25 (14-36) U/L ALT 9 (9-52) U/L Alkaline Phosphatase 94 (38-126) U/L Creatine Kinase 20 L (30-135) U/L Troponin I <0.012 (0.000-0.034) ng/mL Total Protein 7.8 (6.3-8.2) g/dL Albumin 3.6 (3.5-5.0) g/dL Stool Occult Blood Positive H (Negative) 09/09/19 09/09/19 Range/Units 14:05 14:05 WBC 5.7 (3.8-10.6) k/uL RBC 2.18 L (3.80-5.40) m/uL Hgb 7.5 L (11.4-16.0) gm/dL Hct 21.9 L (34.0-46.0) % MCV 100.7 H (80.0-100.0) fL MCH 34.2 (25.0-35.0) pg MCHC 34.0 (31.0-37.0) g/dL RDW 22.6 H (11.5-15.5) % Plt Count 56 L (150-450) k/uL Neutrophils % (Manual) 51 % Band Neutrophils % 1 % Lymphocytes % (Manual) 32 % Monocytes % (Manual) 14 % Eosinophils % (Manual) 1 % Metamyelocytes % 2 % Myelocytes % 1 % Neutrophils # (Manual) 2.90 (1.3-7.7) k/uL Lymphocytes # (Manual) 1.82 (1.0-4.8) k/uL Monocytes # (Manual) 0.80 (0-1.0) k/uL Eosinophils # (Manual) 0.06 (0-0.7) k/uL Metamyelocytes # (Man) 0.11 H (0) k/uL Myelocytes # (Manual) 0.06 H (0) k/uL Nucleated RBCs 4 H (0-0) /100 WBC Manual Slide Review Performed Poikilocytosis (manual Present Anisocytosis Moderate Macrocytosis Marked A PT 11.1 (9.0-12.0) sec INR 1.0 (<1.2) APTT 26.3 (22.0-30.0) sec Sodium (137-145) mmol/L Potassium (3.5-5.1) mmol/L Chloride (98-107) mmol/L Carbon Dioxide (22-30) mmol/L Anion Gap mmol/L BUN (7-17) mg/dL Creatinine (0.52-1.04) mg/dL Est GFR (CKD-EPI)AfAm (>60 ml/min/1.73 sqM) Est GFR (CKD-EPI)NonAf (>60 ml/min/1.73 sqM) Glucose (74-99) mg/dL Calcium (8.4-10.2) mg/dL Magnesium (1.6-2.3) mg/dL Total Bilirubin (0.2-1.3) mg/dL AST (14-36) U/L ALT (9-52) U/L Alkaline Phosphatase (38-126) U/L Creatine Kinase (30-135) U/L Troponin I (0.000-0.034) ng/mL Total Protein (6.3-8.2) g/dL Albumin (3.5-5.0) g/dL Stool Occult Blood (Negative) - EKG Data -: EKG Interpreted by [facility] EKG shows normal: sinus rhythm (Normal sinus rhythm 83. Interval 142 QRS duration 80 QT since QTC 358/[address]-T wave changes) - Radiology Data Radiology results: report reviewed (Imaging reviewed no acute findings.), image reviewed Critical Care Time Critical Care Time: Yes Critical Care Time: 31 minutes of critical care time which was initial presentation with history physical labs x-rays several reevaluation the patient discussed with the patient family regarding findings discussion with the main physician Dr. mcdonald are discussion with the ICU attending Dr. Colmenares admission orders neck mentation the above Disposition Clinical Impression: Hematochezia, Acute lower GI bleeding, Anemia, Thrombocytopenia Disposition: ADMITTED IP TO THIS HOSP Condition: Serious Referrals: Kat Fox MD [Primary Care Provider] - 1-2 days
[2019-09-09 13:45] LABS: Albumin 3.6 g/dL (3.5-5.0); Calcium 8.5 mg/dL (8.4-10.2); Magnesium 1.8 mg/dL (1.6-2.3); Total Bilirubin 2.5 mg/dL (0.2-1.3); Total Protein 7.8 g/dL (6.3-8.2)
[2019-09-09 13:47] LABS: Potassium 4.3 mmol/L (3.5-5.1)
[2019-09-09] MEDS ORDERED: PANTOPRAZOLE 40 MG/10 ML VIAL IVP STA (13:55)
[2019-09-09 14:14] LABS: Anisocytosis Moderate; HCT 21.9 % (34.0-46.0); HGB 7.5 gm/dL (11.4-16.0); MCH 34.2 pg (25.0-35.0); MCV 100.7 fL (80.0-100.0); Macrocytosis Marked; Mean Platelet Volume 7.1; RBC 2.18 m/uL (3.80-5.40); RDW 22.6 % (11.5-15.5)
[2019-09-09 14:23] LABS: Partial Thromboplastin Time 26.3 sec (22.0-30.0); Prothrombin Time 11.1 sec (9.0-12.0)
[2019-09-09 14:27] LABS: Band Neutrophils % 1 %; Eosinophils # (M) 0.06 k/uL (0-0.7); Lymphocytes # (M) 1.82 k/uL (1.0-4.8); Metamyelocytes # (M) 0.11 k/uL (0); Metamyelocytes % 2 %; Myelocytes # (M) 0.06 k/uL (0); Myelocytes % 1 %; Neutrophils % (M) 51 %; Nucleated Red Blood Cells 4 /100 WBC (0-0); Total Cells Counted 200; WBC 5.7 k/uL (3.8-10.6)
[2019-09-09 14:28] LABS: Poikilocytosis (M) Present
[2019-09-09 14:29] LABS: Platelet Count 56 k/uL (150-450)
[2019-09-09] MEDS ORDERED: NALOXONE 0.4 MG/ML 1 ML VIAL IV PRN (14:43)
[2019-09-09] MEDS: SODIUM CHLORIDE 0.9% 1,000 ML IV SCH ×2 (15:16→22:25)
[2019-09-09 16:11] LABS: Glucose,Whole Blood 95 mg/dL (75-99)
[2019-09-09] MEDS ORDERED: ONDANSETRON 4 MG/2 ML VIAL IVP PRN (16:19)
[2019-09-09] MEDS: METOPROLOL TARTRATE 50 MG TAB PO SCH (17:26)
[2019-09-09 22:02] LABS: Anisocytosis Moderate; MCH 33.4 pg (25.0-35.0); MCHC 32.8 g/dL (31.0-37.0); MCV 101.9 fL (80.0-100.0); Macrocytosis Marked; RBC 1.84 m/uL (3.80-5.40); WBC 4.4 k/uL (3.8-10.6)
[2019-09-09 22:06] LABS: HCT 18.8 % (34.0-46.0); HGB 6.2 gm/dL (11.4-16.0)
[2019-09-09] MEDS: ACYCLOVIR 400 MG/10 ML CUP PO SCH (22:25)
[2019-09-09] MEDS: PANTOPRAZOLE 40 MG/10 ML VIAL IV SCH (22:25)
[2019-09-09 22:53] LABS: Lymphocytes # (M) 1.36 k/uL (1.0-4.8); Metamyelocytes # (M) 0.13 k/uL (0); Metamyelocytes % 3 %; Monocytes # (M) 0.75 k/uL (0-1.0); Neutrophils # (M) 2.16 k/uL (1.3-7.7); Neutrophils % (M) 49 %; Nucleated Red Blood Cells 1 /100 WBC (0-0); Polychromasia Present; Total Cells Counted 100
[2019-09-09 22:54] LABS: Platelet Count 45 k/uL (150-450)
[2019-09-10] MEDS: SODIUM CHLORIDE 0.9% 1,000 ML IV SCH ×2 (06:05→13:51)
[2019-09-10] MEDS: ALLOPURINOL 100 MG TAB PO SCH (06:53)
[2019-09-10] MEDS: DIGOXIN 125 MCG TAB PO SCH (06:53)
[2019-09-10] MEDS: ACYCLOVIR 400 MG/10 ML CUP PO SCH ×2 (06:53→21:06)
[2019-09-10] MEDS: LORATADINE 10 MG TAB PO SCH (06:53)
[2019-09-10] MEDS: POTASSIUM BICARBONATE/CIT AC 20 MEQ TABLET.EFF PO SCH (06:53)
[2019-09-10] MEDS: METOPROLOL TARTRATE 50 MG TAB PO SCH ×2 (06:53→17:43)
[2019-09-10] MEDS: CITALOPRAM HYDROBROMIDE 20 MG TAB PO SCH (06:53)
--- NOTE | 2019-09-10 08:37 | CONS ---
CONSULTATION PULMONARY/CRITICAL CARE CONSULTATION: DATE OF SERVICE: September 10, 2019 This is a patient who apparently was admitted on the 09 of September for a GI bleed. She apparently had been having maroon stools. She presented to the emergency room on the . She has a history of acute myelogenous leukemia, diabetes, and chronic anemia. She apparently complained of bright red bleeding per rectum as well as maroon stools. She apparently did not have any abdominal discomfort. She also had some lightheadedness. No prior history of GI bleeding. She apparently has had blood transfusions in the past. She denied any chest pain or shortness of breath. There is no fever or chills. The patient was admitted with a diagnosis of GI bleed. The patient initially had a hemoglobin of 7.5. A repeat hemoglobin was 6.2. Apparently irradiated blood was ordered for her. She is currently on 2 L nasal cannula and a 0.9 IV at 125 mL an hour. The patient was resting comfortably when I went into the room. She had no major complaints. She did not have any pain. HOME MEDICATIONS: Currently, her home medications include Tylenol with codeine, Xanax, oral liquid potassium, Zovirax, allopurinol, Zyrtec, Celexa, digoxin, Marinol, IDHIFA, metoprolol, multivitamins, and Zofran. ALLERGIES: Allergies are LATEX. MEDICAL HISTORY: Medical history includes diabetes, hyperlipidemia, hypertension, acute myelogenous leukemia diagnosed in March 2019 with chemo in April 2019. SURGICAL HISTORY: Her surgical history includes a PICC line placement and a bone marrow biopsy. SOCIAL HISTORY: Negative for tobacco, alcohol or illicit drug use. FAMILY HISTORY: Positive for mother with cancer. REVIEW OF SYSTEMS: CONSTITUTIONAL: Negative. NEUROLOGIC: Lightheadedness. HEENT: Negative. CARDIOVASCULAR: Negative. PULMONARY: Negative. GI: GI bleed with maroon stools and bright red bleeding per rectum without abdominal pain. : Negative. RHEUMATOLOGIC: Negative. IMMUNOLOGIC: Negative. ENDOCRINOLOGIC: Negative. DERMATOLOGIC: Negative. PHYSICAL EXAMINATION: VITAL SIGNS: Current vital signs are reviewed. Temperature 98.4, heart rate 84, respiratory rate 19, blood pressure 98/44, mean 62 and 2 L saturations 99%. GENERAL: Appears in no acute distress. HEENT: Examination is grossly unremarkable. Nasal O2 in place. NECK: Supple. Full range of motion. No adenopathy. Neck veins are flat. CARDIOVASCULAR: Examination reveals regular rhythm and rate. Heart rate 84. S1, S2 normal. LUNGS: Reveal clear breath sounds. No wheezes, rhonchi, or crackles. ABDOMEN: Soft. Bowel sounds are noted. No tenderness. EXTREMITIES: Are intact. No cyanosis, clubbing, or edema. SKIN: Without rash. NEUROLOGIC: Examination is brief but nonfocal. Microbiologic studies are negative thus far. LABS: Labs are reviewed. White count 4.4, hemoglobin 6.2, hematocrit 18.8, platelet count 45,000. PT, INR and PTT were all normal. Sodium, potassium, chloride, CO2 normal. Anion gap normal. BUN and creatinine were 16 and 1.38. Total bilirubin is 2.5. CK was 20. Stools for occult blood were positive. No x-rays. MEDICATIONS: Medications are reviewed. Currently, the patient is on Tylenol No.3, Zovirax, allopurinol, Xanax, Celexa, Lanoxin, loratadine, metoprolol, Narcan, Zofran, Protonix, potassium bicarbonate, and her IV of 0.9 at 125 an hour. ASSESSMENT: 1. Acute gastrointestinal bleed, which might be lower in location. 2. Anemia, secondary to gastrointestinal bleed. 3. Acute myelogenous leukemia, recently diagnosed with chemo subsequently. 4. Chronic anemia. 5. Chronic kidney disease. 6. History of diabetes mellitus. 7. History of hyperlipidemia. 8. History of hypertension. PLAN: The patient should be seen by GI. Continue to monitor here. The patient is getting PRBCs. They were irradiated. Additional hemoglobin, hematocrit will be checked. The patient is currently not having any belly pain. She is not hypotensive. Respiratory status is stable. No additional recommendations are made. She is thrombocytopenic, which puts her at higher risk for bleeding and as well, with her kidney issues, she is at higher risk for platelet dysfunction secondary to her renal insufficiency. We will continue to monitor here in the ICU. MMODL / IJN: [id number] /
[2019-09-10] MEDS: PANTOPRAZOLE 40 MG/10 ML VIAL IV SCH ×2 (08:46→21:05)
[2019-09-10 09:55] LABS: Anisocytosis Moderate; HCT 20.9 % (34.0-46.0); MCH 33.4 pg (25.0-35.0); MCHC 33.3 g/dL (31.0-37.0); MCV 100.1 fL (80.0-100.0); Macrocytosis Moderate; Mean Platelet Volume 9.5; Poikilocytosis Slight; RBC 2.09 m/uL (3.80-5.40); RDW 22.2 % (11.5-15.5); WBC 4.3 k/uL (3.8-10.6)
[2019-09-10 09:59] LABS: Platelet Count 37 k/uL (150-450)
[2019-09-10 10:10] LABS: Albumin 2.8 g/dL (3.5-5.0); Calcium 7.5 mg/dL (8.4-10.2); Potassium 3.6 mmol/L (3.5-5.1); Total Bilirubin 2.2 mg/dL (0.2-1.3); Total Protein 6.2 g/dL (6.3-8.2)
--- NOTE | 2019-09-10 10:49 | P.HPIM ---
History of Present Illness H&P Date: 09/10/19 Chief Complaint: GI bleed This is a 64-year-old female patient who presented with complaints of GI bleed and anemia. Patient has a past medical history of acute myeloid leukemia in which he follows with oncology services not currently receiving chemotherapy, last chemotherapy June 2019 with 2 bone marrow biopsies. Additional medical history includes diabetes, hyperlipidemia, chronic anemia and hypertension. Per patient she had one episode of bright red stool at home. Patient denies being on any blood thinners. Patient denies any nausea vomiting or diarrhea. Patient denies any significant abdominal pain. Patient unable to recall last colonoscopy. Hemoglobin dropping to 6.2. Patient did receive 1 unit of PRBCs. Platelets chronically low 37. Per nursing staff patient has had no further episodes of bleeding. Stool was positive for occult blood. Patient admitted to the intensive care unit. Critical care, GI and oncology service is consulted. At this time patient denies chest pain or shortness of breath. Patient denies nausea vomiting or diarrhea. Patient denies any urinary burning or frequency. Review of Systems Please refer to HPI otherwise unremarkable Past Medical History Past Medical History: Cancer, Diabetes Mellitus, Hyperlipidemia, Hypertension Additional Past Medical History / Comment(s): AML diagnosed 03/2019. chemo last in 2018. new dx. of GI bleed. anemia History of Any Multi-Drug Resistant Organisms: None Reported Past Surgical History: No Surgical Hx Reported Additional Past Surgical History / Comment(s): picc line. bone marrow bx x2 Past Anesthesia/Blood Transfusion Reactions: No Reported Reaction Past Psychological History: No Psychological Hx Reported Smoking Status: Never smoker Past Alcohol Use History: None Reported Past Drug Use History: None Reported - Past Family History Mother Family Medical History: Cancer Sister(s) Family Medical History: Cancer Additional Family Medical History / Comment(s): breast CA Medications and Allergies Home Medications Medication Instructions Recorded Confirmed Type Acetaminophen-Codeine 300-30mg 1 tab PO Q6H PRN 05/07/19 09/09/19 History [Tylenol w/codeine #3] Loperamide [Imodium] 2 mg PO QID PRN #30 cap 05/25/19 09/09/19 Rx ALPRAZolam [Xanax] 0.25 mg PO Q6H PRN 06/29/19 09/09/19 History Potassium Chloride Oral Liquid 40 meq PO DAILY@0700 06/29/19 09/09/19 History Acyclovir [Zovirax] 400 mg PO BID@0700,2100 09/09/19 09/09/19 History Allopurinol [Zyloprim] 100 mg PO DAILY@0700 09/09/19 09/09/19 History Cetirizine HCl [Zyrtec] 10 mg PO DAILY@0700 09/09/19 09/09/19 History Citalopram Hydrobromide [CeleXA] 20 mg PO DAILY@0700 09/09/19 09/09/19 History Digoxin [Lanoxin] 125 mcg PO DAILY@0700 09/09/19 09/09/19 History Dronabinol [Marinol] 2.5 mg PO BID@0700,1700 09/09/19 09/09/19 History Enasidenib Mesylate [Idhifa] 100 mg PO DAILY@1700 09/09/19 09/09/19 History Metoprolol Tartrate [Lopressor] 50 mg PO BID@0700,1700 09/09/19 09/09/19 History Multivitamins, Thera [Multivitamin 1 tab PO DAILY 09/09/19 09/09/19 History (formulary)] Ondansetron [Zofran] 4 mg PO Q8H PRN 09/09/19 09/09/19 History Allergies Allergy/AdvReac Type Severity Reaction Status Date / Time latex Allergy Rash/Hives Verified 09/09/19 14:31 Physical Exam Vitals: Vital Signs Temp Pulse Pulse Resp BP BP Pulse Ox 09/10/19 10:00 81 20 92/72 96 09/10/19 09:00 72 16 86/51 98 09/10/19 08:36 97.8 F 88 12 106/54 09/10/19 08:30 97.8 F 74 18 92/46 95 09/10/19 08:00 71 15 86/44 97 09/10/19 07:00 98.4 F 84 19 98/44 99 09/10/19 06:45 98.2 F 89 20 102/59 98 09/10/19 06:15 98.3 F 86 18 98/55 96 09/10/19 06:00 84 19 93/49 98 09/10/19 05:00 75 18 90/57 96 09/10/19 04:00 98.2 F 79 15 90/57 99 09/10/19 03:00 80 15 92/50 98 09/10/19 02:00 80 15 114/67 98 09/10/19 01:00 79 16 85/49 99 09/10/19 00:00 98.6 F 80 15 90/54 09/09/19 23:39 85 16 90/54 94 L 09/09/19 23:00 86 15 124/73 93 L 09/09/19 22:00 93 18 102/61 94 L 09/09/19 21:00 98.6 F 99 18 105/57 94 L 09/09/19 20:00 88 15 108/65 95 09/09/19 19:07 108/65 09/09/19 19:00 81 16 88/57 91 L 09/09/19 18:00 83 18 94/52 91 L 09/09/19 17:00 87 18 96/57 94 L 09/09/19 16:04 97.8 F 93 22 98/51 96 09/09/19 15:51 98.0 F 88 18 113/73 97 09/09/19 15:17 97.8 F 86 16 98/51 94 L 09/09/19 14:40 89 18 113/75 98 09/09/19 14:03 16 09/09/19 14:00 111/75 97 09/09/19 13:30 106/73 96 09/09/19 13:00 104/70 97 09/09/19 12:46 104/70 09/09/19 12:44 97.6 F 85 16 104/70 97 09/09/19 11:52 98.5 F 93 16 96/68 100 Intake and Output 09/09/19 09/10/19 09/10/19 22:59 06:59 14:59 Intake Total 875 1125 685 Output Total 250 225 250 Balance 625 900 435 Intake: IV 875 1125 375 Sodium Chloride 0.9% 1, 875 1125 375 000 ml @ 125 mls/hr IV . Q8H [facility] Rx#:[id number] Blood Product 0 310 Rc Irr As1 Unit 0 310 [id number] Output: Urine 250 225 250 Other: Voiding Method Bedpan Bedpan Bedpan Diaper Incontinent Weight 78.2 kg Head normocephalic Neck supple Lungs clear to auscultation bilaterally no wheezing or crackles Heart regular rate and rhythm S1-S2, no rub or gallop Abdomen is soft nontender nondistended positive bowel sounds no hepatosplenomegaly Extremities no edema Neuro alert and orientated to 3 Results CBC & Chem 7: 09/10/19 09:41 09/10/19 09:41 Labs: Abnormal Lab Results - Last 24 Hours (Table) 09/09/19 09/09/19 09/09/19 Range/Units 12:30 12:55 14:05 RBC 2.18 L (3.80-5.40) m/uL Hgb 7.5 L (11.4-16.0) gm/dL Hct 21.9 L (34.0-46.0) % MCV 100.7 H (80.0-100.0) fL RDW 22.6 H (11.5-15.5) % Plt Count 56 L (150-450) k/uL Metamyelocytes # (Man) 0.11 H (0) k/uL Myelocytes # (Manual) 0.06 H (0) k/uL Nucleated RBCs 4 H (0-0) /100 WBC Macrocytosis Marked A Chloride (98-107) mmol/L Creatinine 1.38 H (0.52-1.04) mg/dL Calcium (8.4-10.2) mg/dL Total Bilirubin 2.5 H (0.2-1.3) mg/dL AST (14-36) U/L Creatine Kinase 20 L (30-135) U/L Total Protein (6.3-8.2) g/dL Albumin (3.5-5.0) g/dL Stool Occult Blood Positive H (Negative) Crossmatch 09/09/19 09/09/19 09/10/19 Range/Units 14:05 21:31 09:41 RBC 1.84 L 2.09 L (3.80-5.40) m/uL Hgb 6.2 L* 7.0 L (11.4-16.0) gm/dL Hct 18.8 L* 20.9 L (34.0-46.0) % MCV 101.9 H 100.1 H (80.0-100.0) fL RDW 23.0 H 22.2 H (11.5-15.5) % Plt Count 45 L 37 L (150-450) k/uL Metamyelocytes # (Man) 0.13 H (0) k/uL Myelocytes # (Manual) (0) k/uL Nucleated RBCs 1 H (0-0) /100 WBC Macrocytosis Marked A Chloride (98-107) mmol/L Creatinine (0.52-1.04) mg/dL Calcium (8.4-10.2) mg/dL Total Bilirubin (0.2-1.3) mg/dL AST (14-36) U/L Creatine Kinase (30-135) U/L Total Protein (6.3-8.2) g/dL Albumin (3.5-5.0) g/dL Stool Occult Blood (Negative) Crossmatch See Detail 09/10/19 Range/Units 09:41 RBC (3.80-5.40) m/uL Hgb (11.4-16.0) gm/dL Hct (34.0-46.0) % MCV (80.0-100.0) fL RDW (11.5-15.5) % Plt Count (150-450) k/uL Metamyelocytes # (Man) (0) k/uL Myelocytes # (Manual) (0) k/uL Nucleated RBCs (0-0) /100 WBC Macrocytosis Chloride 108 H (98-107) mmol/L Creatinine 1.10 H (0.52-1.04) mg/dL Calcium 7.5 L (8.4-10.2) mg/dL Total Bilirubin 2.2 H (0.2-1.3) mg/dL AST 13 L (14-36) U/L Creatine Kinase (30-135) U/L Total Protein 6.2 L (6.3-8.2) g/dL Albumin 2.8 L (3.5-5.0) g/dL Stool Occult Blood (Negative) Crossmatch Thrombosis Risk Factor Assmnt - Choose All That Apply Other Risk Factors: Yes Each Risk Factor Represents 2 Points: Age 61-74 years Thrombosis Risk Factor Assessment Total Risk Factor Score: 2 Thrombosis Risk Factor Assessment Level: Low Risk Assessment and Plan Assessment: 1. Acute GI bleed. Stool positive for occult blood. Patient did receive 1 unit of PRBCs continue to monitor hemoglobin closely GI service is consulted 2. Anemia secondary to acute blood loss and acute myeloid leukemia. Continue to monitor and transfuse as needed oncology service is consulted 3. Acute on chronic kidney disease stage stage III. Creatinine improving to 1.10 continue to monitor closely 4. Underlying history of acute myeloid leukemia. Last chemotherapy June 2019. Oncology services have been consulted 5. 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 History of diabetes mellitus type 2 7. History of essential hypertension 8. Generalized weakness. Will consult physical therapy DVT prophylaxis SCDs due to GI bleed. GI prophylaxis Protonix patient admitted to the intensive care unit Continue to monitor hemoglobin closely Critical care, GI services and oncology service is following PT OT and social work consult placed Time with Patient: Greater than 30 (Greater than 60% of the total time spent in counseling and coordination of care. I performed an examination of the patient and discussed their management with the Nurse Practitioner. I have reviewed the Nurse Practitioner's notes and agree with the documented findings and plan of care)
[2019-09-10] MEDS ORDERED: Potassium Replacement Protocol 1 EACH MISC MISCELLANE PRN (13:24)
[2019-09-10] MEDS: POTASSIUM CHLORIDE 10 MEQ in WATER FOR INJECTION 1 100ML.BAG IVPB SCH ×2 (13:51→17:46)
[2019-09-10 15:55] LABS: Anisocytosis Moderate; HCT 22.1 % (34.0-46.0); HGB 7.2 gm/dL (11.4-16.0); Hypochromasia Slight; MCH 33.3 pg (25.0-35.0); MCHC 32.8 g/dL (31.0-37.0); MCV 101.7 fL (80.0-100.0); Macrocytosis Marked; Mean Platelet Volume 8.3; Poikilocytosis Slight; RBC 2.18 m/uL (3.80-5.40); RDW 22.1 % (11.5-15.5); WBC 4.4 k/uL (3.8-10.6)
[2019-09-10 16:03] LABS: Platelet Count 42 k/uL (150-450)
[2019-09-10] MEDS: NYSTATIN 100,000 UNIT/ML SUSP 500,000 UNIT/5 ML CUP PO SCH ×3 (17:46→21:05)
--- NOTE | 2019-09-10 18:01 | CONS ---
CONSULTATION DATE OF DICTATION: 09/10/1029 REASON FOR CONSULTATION: Acute GI bleed. HISTORY OF PRESENT ILLNESS: The patient is a 64-year-old pleasant white female who came into the emergency room complaining of an episode of rectal bleeding while at home. 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 Carson and has received several cycles of chemotherapy. The last one was in June of 2019. Yesterday while she was at home she had normal bowel movement followed by bright red blood per rectum that was dripping for a few minutes. Subsequently she came into the emergency room and was admitted to the hospital for further evaluation. Her initial hemoglobin was 7.1 and it dropped to 6.2 g/dL. Since being in the hospital she did not have any further episodes of bleeding. In fact, she had a bowel movement which was brown and solid 2 hours ago. She received one unit of PRBC transfusion and hemoglobin is 7.5 g/dL. No prior history of colonoscopy. She denies any abdominal pain. No nausea, vomiting. No fever, chills, night sweats. PAST MEDICAL HISTORY: 1. Acute myeloid leukemia diagnosed in April of this year. Currently undergoing chemotherapy. 2. History of diabetes mellitus. 3. Hypertension. 4. Hyperlipidemia. PAST SURGICAL HISTORY: Two bone marrow biopsies. MEDICATIONS: Medications at home include: 1. Codeine. 2. Imodium. 3. Xanax. 4. Zovirax. 5. Potassium chloride. 6. Zyloprim. 7. Zyrtec. 8. Celexa. 9. Lanoxin. 10.Marinol. 11.Lopressor. 12.Zofran. ALLERGIES: LATEX. SOCIAL HISTORY: No smoking. No alcohol use. FAMILY HISTORY: Mother had some kind of a cancer. Sister had breast cancer. REVIEW OF SYSTEMS: CARDIOPULMONARY: No chest pain or shortness of breath. GENITOURINARY: No dysuria or hematuria. MUSCULOSKELETAL: Unremarkable. SKIN: Unremarkable. ENDOCRINE: Unremarkable. PSYCHIATRIC: Unremarkable. NEUROLOGY: Unremarkable. ENT/VISION: Unremarkable. CONSTITUTIONAL: No recent weight loss. No fever, chills, night sweats. PHYSICAL EXAMINATION: Blood pressure is 109/67, pulse rate 85, temperature 98. HEENT examination unremarkable. Conjunctivae pale. Sclerae anicteric. Oral cavity no lesions. NECK: No JVD or lymph node enlargement. CHEST: Clear to auscultation. HEART: Regular rate and rhythm. ABDOMEN: Soft. Bowel sounds are positive. No organomegaly. EXTREMITIES: No pedal edema. SKIN: No rashes. NEUROLOGIC: Alert and oriented x3. No focal deficits. LABS: Labs from yesterday showed WBC 5.7, hemoglobin 7.5, platelets 56,000. Last night hemoglobin was down to 6.2. After one unit it is 7 g/dL. Platelets are 37,000. Basic metabolic panel is within normal limits. IMPRESSION: 1. Rectal bleeding, one episode at home yesterday morning and no bleeding since then. She had a normal bowel movement an hour ago. Hemoglobin was 7.5, dropped to 6.2, status post one unit of blood transfusion, and now it is 7 g/dL. No prior history of colonoscopy. Possibly dealing with an anorectal pathology, possibly internal hemorrhoids, but other etiology cannot be excluded. 2. Acute myeloid leukemia diagnosed April of 2019, undergoing chemotherapy. Last chemo was June of 2019. 3. Thrombocytopenia, probably chemo-related. RECOMMENDATIONS: 1. Monitor CBC daily. 2. Start on clear liquid diet. 3. Since she had only one episode of rectal bleeding and has no recurrence since admission to the hospital, we will hold off on any endoscopic intervention at the present time, especially in view of thrombocytopenia. The patient is agreeable with this plan. I will plan on doing an outpatient colonoscopy after her chemotherapy is done. If her hemoglobin remains stable tomorrow, diet can be advanced as tolerated and she can be discharged home with outpatient followup as needed. Thank you for this consultation. MMGUMAORL / FERNANDAN: [id number] /
--- NOTE | 2019-09-10 18:49 | P.CONS ---
History of Present Illness - Reason for Consult Consult date: 09/10/19 ANEMIA, AML on treatment Requesting physician: Chris Galeana - Chief Complaint blood from rectum per - History of Present Illness Mrs. Hernandez is a very pleasant lady, initially seen in consult 04/10/19 for abnormal peripheral smear, showing increased monocytes, metamyelocytes and myelocytes and blasts. She came to hospital with c/o progressive pain and swe lling in her right ankle, right knee, both shoulders and neck starting about 2 weeks prior. She was seen by Rheumatology for joint swelling, workup negative. Bone marrow on 04/13/19, 10% myeloblasts, 16% monocytic cells most of which were immature (promyelocytes/monoblasts). Therefore the finding was felt to be consistent with acute myeloid leukemia, favoring ELLA M4. The patient cytogenetics were negative. 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 She was seen for her first office visit on 05/04/19, 7+3 regimen recommended after discussion of her case with Hem[facility]c at [facility]. She underwent treatment from 05/08 - 05/15. Her discharge was delayed due to development of bleeding in the stool, and marked debility. She was treated supportively and was discharged on 05/25/19. F/U bone marrow on 06/08/19 showed remission with 2.7% blasts. She was then referred to [facility] for BMT evaluation, not a candidate because of poor performance status, advised continued PT. However, she was then admitted 07/10/19 with c/o increased weakness, subjective fevers and decreased appetite. CBC showed relapsed with markedly increased white count including significant blasts on peripheral smear. The patient was started on Hydrea with fairly rapid improvement in WBC and stab ilization of hemoglobin and platelets to a safe range. As performance status remained poor she was transferred to inpatient rehabilitation at [facility], discharged 07/20/19 to [facility]. 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 She started Idhifa on 08/05/19, was decreased off of hydrea. She was discharged from [facility] on 08/24/19, after receiving a blood transfusion. She was seen in office on 08/28, is going to start patient on physical therapy outside the home as she still has a rather poor performance status. Patient was brought to the emergency department by her with concerns for blood in her stool. Patient was admitted with a hemoglobin of 6.2, transfused with 1 unit of packed red blood cells, hemoglobin appropriately increased to 7. She is also noted to have a platelet count of 37,000, her white blood cell count remains normal, no blasts in the periphery. In ICU patient is denying any symptoms, she is not aware of any bleeding, patient isn't sure when she last took her meds, doesn't recall anything about Idhifa. On admit mildly elevated creatinine, elevated bilirubin, when compared with the last CMP in the office Cr stable, bili increase x 1.5, slightly better today post hydration. Pt denied fever, N,V, chest pain, palpitations, abd pain, rectal pain, she cont to be weak. Review of Systems 14 point ROS is negative except as stated in HPI Past Medical History Past Medical History: Cancer, Diabetes Mellitus, Hyperlipidemia, Hypertension Additional Past Medical History / Comment(s): AML diagnosed 03/2019. chemo last in 2018. new dx. of GI bleed. anemia History of Any Multi-Drug Resistant Organisms: None Reported Past Surgical History: No Surgical Hx Reported Additional Past Surgical History / Comment(s): picc line. bone marrow bx x2 Past Anesthesia/Blood Transfusion Reactions: No Reported Reaction Past Psychological History: No Psychological Hx Reported Smoking Status: Never smoker Past Alcohol Use History: None Reported Past Drug Use History: None Reported - Past Family History Mother Family Medical History: Cancer Sister(s) Family Medical History: Cancer Additional Family Medical History / Comment(s): breast CA Medications and Allergies Home Medications Medication Instructions Recorded Confirmed Type Acetaminophen-Codeine 300-30mg 1 tab PO Q6H PRN 05/07/19 09/09/19 History [Tylenol w/codeine #3] Loperamide [Imodium] 2 mg PO QID PRN #30 cap 05/25/19 09/09/19 Rx ALPRAZolam [Xanax] 0.25 mg PO Q6H PRN 06/29/19 09/09/19 History Potassium Chloride Oral Liquid 40 meq PO DAILY@0700 06/29/19 09/09/19 History Acyclovir [Zovirax] 400 mg PO BID@0700,2100 09/09/19 09/09/19 History Allopurinol [Zyloprim] 100 mg PO DAILY@0700 09/09/19 09/09/19 History Cetirizine HCl [Zyrtec] 10 mg PO DAILY@0700 09/09/19 09/09/19 History Citalopram Hydrobromide [CeleXA] 20 mg PO DAILY@0700 09/09/19 09/09/19 History Digoxin [Lanoxin] 125 mcg PO DAILY@0700 09/09/19 09/09/19 History Dronabinol [Marinol] 2.5 mg PO BID@0700,1700 09/09/19 09/09/19 History Enasidenib Mesylate [Idhifa] 100 mg PO DAILY@1700 09/09/19 09/09/19 History Metoprolol Tartrate [Lopressor] 50 mg PO BID@0700,1700 09/09/19 09/09/19 History Multivitamins, Thera [Multivitamin 1 tab PO DAILY 09/09/19 09/09/19 History (formulary)] Ondansetron [Zofran] 4 mg PO Q8H PRN 09/09/19 09/09/19 History Allergies Allergy/AdvReac Type Severity Reaction Status Date / Time latex Allergy Rash/Hives Verified 09/09/19 14:31 Physical Exam Vitals: Vital Signs Temp Pulse Resp BP BP Pulse Ox 09/10/19 13:00 85 16 109/67 94 L 09/10/19 12:00 97.8 F 82 20 105/52 97 09/10/19 11:00 85 22 101/54 96 09/10/19 10:00 81 20 92/72 96 09/10/19 09:00 72 16 86/51 98 09/10/19 08:36 97.8 F 88 12 106/54 09/10/19 08:30 97.8 F 74 18 92/46 95 09/10/19 08:00 71 15 86/44 97 09/10/19 07:00 98.4 F 84 19 98/44 99 09/10/19 06:45 98.2 F 89 20 102/59 98 09/10/19 06:15 98.3 F 86 18 98/55 96 09/10/19 06:00 84 19 93/49 98 09/10/19 05:00 75 18 90/57 96 09/10/19 04:00 98.2 F 79 15 90/57 99 09/10/19 03:00 80 15 92/50 98 09/10/19 02:00 80 15 114/67 98 09/10/19 01:00 79 16 85/49 99 09/10/19 00:00 98.6 F 80 15 90/54 09/09/19 23:39 85 16 90/54 94 L 09/09/19 23:00 86 15 124/73 93 L 09/09/19 22:00 93 18 102/61 94 L 09/09/19 21:00 98.6 F 99 18 105/57 94 L 09/09/19 20:00 88 15 108/65 95 09/09/19 19:07 108/65 09/09/19 19:00 81 16 88/57 91 L Intake and Output 09/10/19 09/10/19 09/10/19 06:59 14:59 22:59 Intake Total 1125 1285 125 Output Total 225 425 150 Balance 900 860 -25 Intake: IV 1125 975 125 Potassium Chloride 10 meq 100 In Water For Injection 1 100ml.bag @ 100 mls/hr IVPB Q1H LAST Rx#: [id number] Sodium Chloride 0.9% 1, 1125 875 125 000 ml @ 125 mls/hr IV . Q8H LAST Rx#:[id number] Blood Product 0 310 Rc Irr As1 Unit 0 310 [id number] Output: Urine 225 425 150 Other: Voiding Method Bedpan Bedside Commode # Bowel Movements 1 Weight 78.2 kg 78.2 kg - Constitutional General appearance: average body habitus, cooperative, no acute distress - EENT dry mouth Eyes: anicteric sclerae, EOMI ENT: hearing grossly normal, pharyngeal erythema, thrush - Neck Neck: no lymphadenopathy - Respiratory Respiratory: bilateral: CTA - Cardiovascular Rhythm: regular Heart sounds: normal: S1, S2 Abnormal Heart Sounds: no diastolic murmur, no rub, no S3 Gallop, no S4 Gallop, no click, no other leg Peripheral Edema: bilateral: Trace - Gastrointestinal General gastrointestinal: no absent bowel sounds, no decreased bowel sounds, no distended, no hepatomegaly, no hyperactive bowel sounds, normal bowel sounds, no organomegaly, no rigid, no scaphoid, soft, no splenomegaly, no tenderness, no umbilical hernia, no ventral hernia - Integumentary Integumentary: pale - Neurologic generalized weakness lower extremities Neurologic: CNII-XII intact - Musculoskeletal Musculoskeletal: generalized weakness - Psychiatric Psychiatric: A&O x's 3, appropriate affect, no intact judgment & insight Results CBC & Chem 7: 09/10/19 15:12 09/10/19 09:41 Labs: Abnormal Lab Results - Last 24 Hours (Table) 09/09/19 09/09/19 09/10/19 Range/Units 14:05 21:31 09:41 RBC 1.84 L 2.09 L (3.80-5.40) m/uL Hgb 6.2 L* 7.0 L (11.4-16.0) gm/dL Hct 18.8 L* 20.9 L (34.0-46.0) % MCV 101.9 H 100.1 H (80.0-100.0) fL RDW 23.0 H 22.2 H (11.5-15.5) % Plt Count 45 L 37 L (150-450) k/uL Metamyelocytes # (Man) 0.13 H (0) k/uL Nucleated RBCs 1 H (0-0) /100 WBC Macrocytosis Marked A Chloride (98-107) mmol/L Creatinine (0.52-1.04) mg/dL Calcium (8.4-10.2) mg/dL Total Bilirubin (0.2-1.3) mg/dL AST (14-36) U/L Total Protein (6.3-8.2) g/dL Albumin (3.5-5.0) g/dL Crossmatch See Detail 09/10/19 09/10/19 Range/Units 09:41 15:12 RBC 2.18 L (3.80-5.40) m/uL Hgb 7.2 L (11.4-16.0) gm/dL Hct 22.1 L (34.0-46.0) % MCV 101.7 H (80.0-100.0) fL RDW 22.1 H (11.5-15.5) % Plt Count 42 L (150-450) k/uL Metamyelocytes # (Man) (0) k/uL Nucleated RBCs (0-0) /100 WBC Macrocytosis Marked A Chloride 108 H (98-107) mmol/L Creatinine 1.10 H (0.52-1.04) mg/dL Calcium 7.5 L (8.4-10.2) mg/dL Total Bilirubin 2.2 H (0.2-1.3) mg/dL AST 13 L (14-36) U/L Total Protein 6.2 L (6.3-8.2) g/dL Albumin 2.8 L (3.5-5.0) g/dL Crossmatch Assessment and Plan (1) Hematochezia Narrative/Plan: GI consulted for positive occult and family report of bleeding from rectum Pt Hgb in office on 09/06 was 7.9 Current Visit: Yes Status: Acute Priority: High Code(s): K92.1 - MELENA SNOMED Code(s): 263517969 (2) Bicytopenia Narrative/Plan: Hgb down from pt [id number]. Plt down from baseline 60-90K. Pt has been transfused with PRBC with good Hgb response, CBC daily, GI to see pt and recommendations. No plt at this time. No anticoagulation, ASA, NSAIDs, ibuprofen Current Visit: Yes Status: Chronic Priority: High Code(s): D75.89 - OTHER SPECIFIED DISEASES OF BLOOD AND BLOOD-FORMING ORGANS SNOMED Code(s): 67081268 (3) Acute myelomonocytic leukemia not having achieved remission Narrative/Plan: Pt is supposed to be on IDHIFA for IDH2 positive disease-supposed to be in 100mg QD. This is not being given at this time, hold until seen by GI and plan is in place. Would prefer not to hold too long. No evidence to suggest conversion syndrome, close lab monitoring. Current Visit: Yes Status: Chronic Priority: High Code(s): C92.50 - ACUTE MYELOMONOCYTIC LEUKEMIA, NOT HAVING ACHIEVED REMISSION SNOMED Code(s): 159999307 (4) Lisa infection of mouth Narrative/Plan: Nystatin suspension ordered Current Visit: Yes Status: Acute Priority: High Code(s): B37.0 - CANDIDAL STOMATITIS SNOMED Code(s): 58620037
[2019-09-10] MEDS: ALPRAZolam 0.25 MG TAB PO PRN (22:16)
[2019-09-11] MEDS: Acetaminophen-Codeine 300-30mg TAB PO PRN (05:10)
[2019-09-11] MEDS: SODIUM CHLORIDE 0.9% 1,000 ML IV SCH ×3 (05:11→17:07)
[2019-09-11 05:46] LABS: Anisocytosis Moderate; HCT 21.5 % (34.0-46.0); HGB 7.2 gm/dL (11.4-16.0); MCH 33.7 pg (25.0-35.0); MCHC 33.5 g/dL (31.0-37.0); MCV 100.5 fL (80.0-100.0); Macrocytosis Marked; Mean Platelet Volume 8.3; Poikilocytosis Slight; RBC 2.14 m/uL (3.80-5.40); RDW 22.4 % (11.5-15.5); WBC 4.2 k/uL (3.8-10.6)
[2019-09-11 06:00] LABS: Calcium 7.4 mg/dL (8.4-10.2); Potassium 3.3 mmol/L (3.5-5.1)
[2019-09-11 06:21] LABS: Platelet Count 42 k/uL (150-450)
[2019-09-11 07:13] LABS: Band Neutrophils % 3 %; Eosinophils # (M) 0.04 k/uL (0-0.7); Lymphocytes # (M) 1.47 k/uL (1.0-4.8); Metamyelocytes # (M) 0.08 k/uL (0); Metamyelocytes % 2 %; Monocytes # (M) 0.25 k/uL (0-1.0); Neutrophils % (M) 55 %; Nucleated Red Blood Cells 1 /100 WBC (0-0); Total Cells Counted 200
[2019-09-11 07:14] LABS: Polychromasia Present
[2019-09-11] MEDS: CITALOPRAM HYDROBROMIDE 20 MG TAB PO SCH (08:09)
[2019-09-11] MEDS: METOPROLOL TARTRATE 50 MG TAB PO SCH ×2 (08:09→17:13)
[2019-09-11] MEDS: LORATADINE 10 MG TAB PO SCH (08:09)
[2019-09-11] MEDS: POTASSIUM BICARBONATE/CIT AC 20 MEQ TABLET.EFF PO SCH (08:09)
[2019-09-11] MEDS: ACYCLOVIR 400 MG/10 ML CUP PO SCH ×2 (08:09→21:42)
[2019-09-11] MEDS: DIGOXIN 125 MCG TAB PO SCH (08:09)
[2019-09-11] MEDS: ALLOPURINOL 100 MG TAB PO SCH (08:09)
[2019-09-11] MEDS: PANTOPRAZOLE 40 MG/10 ML VIAL IV SCH ×2 (08:10→21:23)
[2019-09-11] MEDS: NYSTATIN 100,000 UNIT/ML SUSP 500,000 UNIT/5 ML CUP PO SCH ×4 (08:10→22:14)
[2019-09-11] MEDS ORDERED: Potassium Replacement Protocol 1 EACH MISC MISCELLANE PRN (08:33)
[2019-09-11] MEDS ORDERED: POTASSIUM CHLORIDE ER 20 MEQ TAB.ER PO SCH ×2 (09:00→18:00)
--- NOTE | 2019-09-11 09:06 | P.PN ---
Subjective Progress Note Date: 09/11/19 Principal diagnosis: Acute lower GI tract gastrointestinal bleeding On 09/11/2019 patient seen in follow-up in the intensive care unit, she is awake and alert, in no acute distress, there has been no recurrence of bleeding overnight, no maroon or black stools, no hematemesis. Patient denies any abdominal discomfort, abdomen is nontender, soft, no lightheadedness, no dizziness, no complaints of shortness of breath or chest pain, no fever or chills. She is tolerating oral diet. Patient did receive 1 unit of your EGD dated red blood cells yesterday, today's hemoglobin is 7.2. Hemodynamically patient remains stable, 0.9 normal saline at a rate of 125 ML per hour. Objective - Vital Signs Vital signs: Vital Signs Temp 97.9 F 09/11/19 08:00 Pulse 70 09/11/19 08:00 Resp 15 09/11/19 08:00 BP 106/61 09/11/19 08:00 Pulse Ox 94 L 09/11/19 08:00 Intake & Output 09/10/19 09/11/19 09/11/19 18:59 06:59 18:59 Intake Total 1805 1500 250 Output Total 775 0 Balance 1030 1500 250 Weight 78.2 kg 78.9 kg Intake: IV 1495 1500 125 Potassium Chloride 10 meq 120 In Water For Injection 1 100ml.bag @ 100 mls/hr IVPB Q1H LAST Rx#: [id number] Sodium Chloride 0.9% 1, 1375 1500 125 000 ml @ 125 mls/hr IV . Q8H LAST Rx#:[id number] Blood Product 310 Rc Irr As1 Unit 310 [id number] Lipid 125 Sodium Chloride 0.9% 1, 125 000 ml @ 125 mls/hr IV . Q8H LAST Rx#:[id number] Output: Urine 775 0 Other: Voiding Method Bedside Commode Bedside Commode Bedside Commode # Voids 1 # Bowel Movements 1 - Exam GENERAL EXAM: Alert, pleasant, 64-year-old female 2 L of oxygen with a pulse ox of 94% comfortable in no apparent distress. HEAD: Normocephalic/atraumatic. EYES: Normal reaction of pupils, equal size. Conjunctiva pink, sclera white. NOSE: Clear with pink turbinates. THROAT: No erythema or exudates. NECK: No masses, no JVD, no thyroid enlargement, no adenopathy. CHEST: No chest wall deformity. Symmetrical expansion. LUNGS: Equal air entry with no crackles, wheeze, rhonchi or dullness. CVS: Regular rate and rhythm, normal S1 and S2, no gallops, no murmurs, no rubs ABDOMEN: Soft, nontender. No hepatosplenomegaly, normal bowel sounds, no guarding or rigidity. EXTREMITIES: No clubbing, no edema, no cyanosis, 2+ pulses and upper and lower extremities. MUSCULOSKELETAL: Muscle strength and tone normal. SPINE: No scoliosis or deformity SKIN: No rashes CENTRAL NERVOUS SYSTEM: Alert and oriented -3. No focal deficits, tone is normal in all 4 extremities. PSYCHIATRIC: Alert and oriented -3. Appropriate affect. Intact judgment and insight. - Labs CBC & Chem 7: 09/11/19 04:58 09/11/19 05:01 Labs: Abnormal Lab Results - Last 24 Hours (Table) 09/10/19 09/10/19 09/10/19 Range/Units 09:41 09:41 15:12 RBC 2.09 L 2.18 L (3.80-5.40) m/uL Hgb 7.0 L 7.2 L (11.4-16.0) gm/dL Hct 20.9 L 22.1 L (34.0-46.0) % MCV 100.1 H 101.7 H (80.0-100.0) fL RDW 22.2 H 22.1 H (11.5-15.5) % Plt Count 37 L 42 L (150-450) k/uL Metamyelocytes # (Man) (0) k/uL Nucleated RBCs (0-0) /100 WBC Macrocytosis Marked A Potassium (3.5-5.1) mmol/L Chloride 108 H (98-107) mmol/L Creatinine 1.10 H (0.52-1.04) mg/dL Calcium 7.5 L (8.4-10.2) mg/dL Total Bilirubin 2.2 H (0.2-1.3) mg/dL AST 13 L (14-36) U/L Total Protein 6.2 L (6.3-8.2) g/dL Albumin 2.8 L (3.5-5.0) g/dL 09/11/19 09/11/19 Range/Units 04:58 05:01 RBC 2.14 L (3.80-5.40) m/uL Hgb 7.2 L (11.4-16.0) gm/dL Hct 21.5 L (34.0-46.0) % MCV 100.5 H (80.0-100.0) fL RDW 22.4 H (11.5-15.5) % Plt Count 42 L (150-450) k/uL Metamyelocytes # (Man) 0.08 H (0) k/uL Nucleated RBCs 1 H (0-0) /100 WBC Macrocytosis Marked A Potassium 3.3 L (3.5-5.1) mmol/L Chloride 110 H (98-107) mmol/L Creatinine (0.52-1.04) mg/dL Calcium 7.4 L (8.4-10.2) mg/dL Total Bilirubin (0.2-1.3) mg/dL AST (14-36) U/L Total Protein (6.3-8.2) g/dL Albumin (3.5-5.0) g/dL Assessment and Plan Plan: Assessment: #1. Acute gastrointestinal bleeding, patient presented with maroon-colored stools and hemoglobin of 5.7 #2. Acute on chronic anemia #3. 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 Thrombocytopenia probably related to chemotherapy #5. Chronic kidney disease #6. History of diabetes mellitus #7. History of hypertension #8. History of hyperlipidemia Plan: Hemodynamic patient remains stable, no further bleeding overnight, we'll continue to monitor in the intensive care unit, today's hemoglobin is 7.2, she is tolerating oral diet, no plans for endoscopic studies at this time related to thrombocytopenia. No specific complaints overnight, no difficulty breathing, lightheadedness, no chest pain, we'll continue to monitor I performed a history & physical examination of the patient and discussed their management with my nurse practitioner, Nichelle Powell. I reviewed the nurse practitioner's note and agree with the documented findings and plan of care. Lung sounds are positive for clear breath sounds. The findings and the impression was discussed with the patient. I attest to the documentation by the nurse practitioner. Time with Patient: Less than 30
--- NOTE | 2019-09-11 10:21 | P.PN ---
Subjective Progress Note Date: 09/11/19 This is a 64-year-old female patient who presented with complaints of GI bleed and anemia. Patient has a past medical history of acute myeloid leukemia in which he follows with oncology services not currently receiving chemotherapy, last chemotherapy June 2019 with 2 bone marrow biopsies. Additional medical history includes diabetes, hyperlipidemia, chronic anemia and hypertension. Per patient she had one episode of bright red stool at home. Patient denies being on any blood thinners. Patient denies any nausea vomiting or diarrhea. Patient denies any significant abdominal pain. Patient unable to recall last colonoscopy. Hemoglobin dropping to 6.2. Patient did receive 1 unit of PRBCs. Platelets chronically low 37. Per nursing staff patient has had no further episodes of bleeding. Stool was positive for occult blood. Patient admitted to the intensive care unit. Critical care, GI and oncology service is consulted. At this time patient denies chest pain or shortness of breath. Patient denies nausea vomiting or diarrhea. Patient denies any urinary burning or frequency. On 09/11/2019 patient's alert and oriented 3. Per nursing staff patient has had no further episodes of bleeding. Some nausea noted per patient. Hemoglobin 7.2. No plans for endoscopic studies at this time per GI services. Vitals have remained stable. Critical care has cleared patient to be transferred out of intensive care unit. At this time patient denies chest pain or shortness of breath. Patient denies nausea vomiting or diarrhea. Patient denies any urinary burning or frequency. Objective - Vital Signs Vital signs: Vital Signs Temp 97.9 F 09/11/19 08:00 Pulse 67 09/11/19 10:00 Resp 14 09/11/19 10:00 BP 128/79 09/11/19 10:00 Pulse Ox 96 09/11/19 10:00 Intake & Output 09/10/19 09/11/19 09/11/19 18:59 06:59 18:59 Intake Total 1805 1500 500 Output Total 775 0 Balance 1030 1500 500 Weight 78.2 kg 78.9 kg Intake: IV 1495 1500 375 Potassium Chloride 10 meq 120 In Water For Injection 1 100ml.bag @ 100 mls/hr IVPB Q1H LAST Rx#: [id number] Sodium Chloride 0.9% 1, 1375 1500 375 000 ml @ 125 mls/hr IV . Q8H LAST Rx#:[id number] Blood Product 310 Rc Irr As1 Unit 310 [id number] Lipid 125 Sodium Chloride 0.9% 1, 125 000 ml @ 125 mls/hr IV . Q8H [facility] Rx#:[id number] Output: Urine 775 0 Other: Voiding Method Bedside Commode Bedside Commode Bedside Commode # Voids 1 1 # Bowel Movements 1 - Exam Head normocephalic Neck supple Lungs clear to auscultation bilaterally no wheezing or crackles Heart regular rate and rhythm S1-S2, no rub or gallop Abdomen is soft nontender nondistended positive bowel sounds no hepatosplenomegaly Extremities no edema Neuro alert and orientated to 3 - Labs CBC & Chem 7: 09/11/19 04:58 09/11/19 05:01 Labs: Abnormal Lab Results - Last 24 Hours (Table) 09/10/19 09/10/19 09/10/19 Range/Units 09:41 09:41 15:12 RBC 2.09 L 2.18 L (3.80-5.40) m/uL Hgb 7.0 L 7.2 L (11.4-16.0) gm/dL Hct 20.9 L 22.1 L (34.0-46.0) % MCV 100.1 H 101.7 H (80.0-100.0) fL RDW 22.2 H 22.1 H (11.5-15.5) % Plt Count 37 L 42 L (150-450) k/uL Metamyelocytes # (Man) (0) k/uL Nucleated RBCs (0-0) /100 WBC Macrocytosis Marked A Potassium (3.5-5.1) mmol/L Chloride 108 H (98-107) mmol/L Creatinine 1.10 H (0.52-1.04) mg/dL Calcium 7.5 L (8.4-10.2) mg/dL Total Bilirubin 2.2 H (0.2-1.3) mg/dL AST 13 L (14-36) U/L Total Protein 6.2 L (6.3-8.2) g/dL Albumin 2.8 L (3.5-5.0) g/dL 09/11/19 09/11/19 Range/Units 04:58 05:01 RBC 2.14 L (3.80-5.40) m/uL Hgb 7.2 L (11.4-16.0) gm/dL Hct 21.5 L (34.0-46.0) % MCV 100.5 H (80.0-100.0) fL RDW 22.4 H (11.5-15.5) % Plt Count 42 L (150-450) k/uL Metamyelocytes # (Man) 0.08 H (0) k/uL Nucleated RBCs 1 H (0-0) /100 WBC Macrocytosis Marked A Potassium 3.3 L (3.5-5.1) mmol/L Chloride 110 H (98-107) mmol/L Creatinine (0.52-1.04) mg/dL Calcium 7.4 L (8.4-10.2) mg/dL Total Bilirubin (0.2-1.3) mg/dL AST (14-36) U/L Total Protein (6.3-8.2) g/dL Albumin (3.5-5.0) g/dL Assessment and Plan Assessment: 1. Acute GI bleed. Stool positive for occult blood. Patient did receive 1 unit of PRBCs continue to monitor hemoglobin closely GI service is consulted. Hemoglobin 7.2. Per GI services patient started on clear liquid diet will hold off on endoscopic intervention at this time due to no further episodes of recurrent bleeding if hemoglobin remains stable diet to be advanced per GI. 2. Anemia secondary to acute blood loss and acute myeloid leukemia. Continue to monitor and transfuse as needed oncology service is consulted 3. Acute on chronic kidney disease stage stage III. Creatinine improving to 1.10 continue to monitor closely. Creatinine improving to 0.92. Bun 8 4. Underlying history of acute myeloid leukemia. Last chemotherapy June 2019. per oncloy service patient is supposed to be on IDHIFA for IDH2 positive disease. per oncology this is not be given at this time, hold until seen by GI and plan is in place. 5. 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 History of diabetes mellitus type 2 7. History of essential hypertension 8. Generalized weakness. Will consult physical therapy DVT prophylaxis SCDs due to GI bleed. GI prophylaxis Protonix Continue to monitor hemoglobin closely Critical care, GI services and oncology service is following PT OT and social work consult placed
[2019-09-11] MEDS: ALPRAZolam 0.25 MG TAB PO PRN (12:00)
--- NOTE | 2019-09-11 15:04 | P.CN ---
Psychiatric Consult - . Consult date: 09/11/19 Consult:: Reason for consultation: " depression, needing meds-concerned for drug interaction, appreciate recs" Identifying data: Patient is a 64-year-old [place] female who currently lives with her , and has has psychiatric history of depression, and medical history of multiple medical problems including acute myeloid leukemia currently receiving chemotherapy, last chemotherapy June 2019. Additional medical history inc ludes diabetes, hyperlipidemia, chronic anemia and hypertension. The patient was seen while she was at ICU Chief complaint and history of present illness: The patient was admitted to due to GI bleed and anemia. Patient was alert and cooperative with assessment, she denies hopelessness, helplessness, worthlessness, suicidal thoughts, suicidal intent, suicidal plan, diminished motivation, lack of interest, feeling guilty, crying spells, sleep disturbances, or appetite disturbances. She reports feeling to some degree depressed because she has limited social support and only support is her so she was feeling missing her mother who many years ago and she just having thoughts that hope her mother could be around her now. Patient reports having 4 children but they are all busy with their lives. Patient denies severe anxiety or panic attacks. She denies any current or previous history of manic symptoms including feeling inflated self-esteem, a euphoric mood, unusual increased level of energy, lack need to sleep due to increased activities, impulsive and irrational behavior. Also, she denies any current or previous history of psychotic symptoms including auditory/visual hallucinations, paranoid ideation, delusions. Patient denies nightmares, flashbacks, intrusive thoughts related to previous psychological trauma. Past psychiatric history: Previous psychiatric hospitalization: Denies any previous psychiatric hospitalization. Previous suicidal attempts: Any previous suicidal attempts. Previous psychiatric treatment: Reports started Celexa "many years" ago for depression. Prescribed medication by her PCP and never seen by psychiatrist. Never received counseling or therapy. Substance use history: Denies any smoking or using tobacco products. Denies using alcohol. Denies any use of street drugs Family history of psychiatric illness: Denies any family history of depression, addiction problems, or suicide Brief social history: Currently lives with her . Unemployed on Social Security disability Mental status examination: Appearance: The patient appears older than stated age, adequately groomed and dressed in hospital gown, no specific features. Gait/posture: Patient was lying in bed Attitude and behavior: engaged, cooperative, eye contact. Motor activity: Normal psychomotor activity Speech: Normal rate, tone. Mood: Anxious Affect: Restricted range Thought form: goal-directed, linear, coherent. Thought content: Non-delusional, denies suicidal thoughts, denies homicidal thoughts, denies intentions or plans. Perception: Denies any auditory or visual hallucinations Attention: No impairment. Patient was able to repeat serial 5. Patient was not able to do serial 7. Orientation: Patient patient was fully oriented to place person and situation, but not fully oriented to time. Insight: Patient has fair insight about his psychiatric disorder. Judgment: Patient has fair judgment about his psychiatric treatment. Assessment: Major depressive disorder by history Recommendations: Addressed and ensured patient's safety, patient is not actively suicidal, and she denies any intent or plan to hurt self or others. Patient is psychiatrically stable to continue her psychiatric treatment as an outpatient, and does not meet the criteria for psychiatric hospitalization. At this time there is no need for further follow-up by psychiatric team. Medication management: Continue Celexa and Xanax. For any question regarding possible interaction with chemotherapy agents please obtain clinical pharmacology consult. Individual therapy: Refer the patient to counseling and therapy after discharge Disposition, aftercare follow-up and referral requests to be communicated to the unit social security assessor: Referred to outpatient psychiatric services for medication management, and therapy. Discussed the treatment plan with the requesting physician/service including nurse and nurse practitioner. Brief supportive psychotherapy was provided regarding patient's acute and chronic stressors. Psycho-education was provided to the patient. Thank you for permitting me to assist in this patient's treatment. Please call psychiatry department if you have any question or need further help with this case.
[2019-09-11 16:50] LABS: Glucose,Whole Blood 91 mg/dL (75-99)
--- NOTE | 2019-09-11 17:30 | P.PN ---
Subjective Progress Note Date: 09/11/19 Principal diagnosis: BRBPR In f/u today pt denied nausea, GABBIE, abd pain, appetite decent, dysuria, last BM was reported brown and formed. We had a discussion about concerns for her lack of motivation to do anything for herself Objective - Vital Signs Vital signs: Vital Signs Temp 97.9 F 09/11/19 12:00 Pulse 71 09/11/19 13:00 Resp 12 09/11/19 13:00 BP 108/56 09/11/19 13:00 Pulse Ox 93 L 09/11/19 13:00 Intake & Output 09/10/19 09/11/19 09/11/19 18:59 06:59 18:59 Intake Total 1805 1500 875 Output Total 775 0 275 Balance 1030 1500 600 Weight 78.2 kg 78.9 kg Intake: IV 1495 1500 750 Potassium Chloride 10 meq 120 In Water For Injection 1 100ml.bag @ 100 mls/hr IVPB Q1H LAST Rx#: [id number] Sodium Chloride 0.9% 1, 1375 1500 750 000 ml @ 125 mls/hr IV . Q8H LAST Rx#:[id number] Blood Product 310 Rc Irr As1 Unit 310 [id number] Lipid 125 Sodium Chloride 0.9% 1, 125 000 ml @ 125 mls/hr IV . Q8H LAST Rx#:[id number] Output: Urine 775 0 275 Other: Voiding Method Bedside Commode Bedside Commode Bedside Commode # Voids 1 1 # Bowel Movements 1 - Constitutional General appearance: Present: average body habitus, cooperative, no acute distress - EENT Eyes: Present: anicteric sclerae, EOMI ENT: Present: hearing grossly normal - Respiratory Respiratory: bilateral: CTA - Cardiovascular Rhythm: regular Heart sounds: normal: S1, S2 - Peripheral edema leg Peripheral Edema: bilateral: Trace - Gastrointestinal General gastrointestinal: Present: normal bowel sounds, soft. Absent: absent bowel sounds, decreased bowel sounds, distended, hepatomegaly, hyperactive bowel sounds, organomegaly, rigid, scaphoid, splenomegaly, tenderness, umbilical hernia, ventral hernia - Neurologic Neurologic: Present: CNII-XII intact - Musculoskeletal Musculoskeletal: Present: generalized weakness, strength equal bilaterally - Psychiatric Psychiatric Comment(s): Answered month, year correctly, upcoming holiday, read clock time. Affect is flat, does not form complete sentences or discuss a singe thought-scattered. Psychiatric: Present: A&O x's 3 - Labs CBC & Chem 7: 09/11/19 04:58 09/11/19 05:01 Labs: Abnormal Lab Results - Last 24 Hours (Table) 09/10/19 09/11/19 09/11/19 Range/Units 15:12 04:58 05:01 RBC 2.18 L 2.14 L (3.80-5.40) m/uL Hgb 7.2 L 7.2 L (11.4-16.0) gm/dL Hct 22.1 L 21.5 L (34.0-46.0) % MCV 101.7 H 100.5 H (80.0-100.0) fL RDW 22.1 H 22.4 H (11.5-15.5) % Plt Count 42 L 42 L (150-450) k/uL Metamyelocytes # (Man) 0.08 H (0) k/uL Nucleated RBCs 1 H (0-0) /100 WBC Macrocytosis Marked A Marked A Potassium 3.3 L (3.5-5.1) mmol/L Chloride 110 H (98-107) mmol/L Calcium 7.4 L (8.4-10.2) mg/dL Assessment and Plan (1) Hematochezia Narrative/Plan: GI consulted for positive occult and family report of bleeding from rectum, Hgb stable, no plans for endo per GI note Pt Hgb in office on 09/06 was 7.9. Current Visit: Yes Status: Acute Priority: High Code(s): K92.1 - MELENA SNOMED Code(s): 713168270 (2) Bicytopenia Narrative/Plan: Hgb down from pt [id number]. Plt down from baseline 60-90K. Pt has been transfused with PRBC with good Hgb response, CBC daily. No plt at this time. No anticoagulation, ASA, NSAIDs, ibuprofen Current Visit: Yes Status: Chronic Priority: High Code(s): D75.89 - OTHER SPECIFIED DISEASES OF BLOOD AND BLOOD-FORMING ORGANS SNOMED Code(s): 56903340 (3) Acute myelomonocytic leukemia not having achieved remission Narrative/Plan: Pt is supposed to be on IDHIFA for IDH2 positive disease-supposed to be in 100mg QD. This is not being given at this time, hold until seen by GI and plan is in place. Would prefer not to hold too long. No evidence to suggest conversion syndrome, close lab monitoring. Current Visit: Yes Status: Chronic Priority: High Code(s): C92.50 - ACUTE MYELOMONOCYTIC LEUKEMIA, NOT HAVING ACHIEVED REMISSION SNOMED Code(s): 041864254 (4) Lisa infection of mouth Narrative/Plan: Nystatin suspension ordered Current Visit: Yes Status: Acute Priority: High Code(s): B37.0 - CANDIDAL STOMATITIS SNOMED Code(s): 11408910 Plan: We had a long talk about my concerns for her lack of involvement in her own health/care/meds/what is happening to her. She doesn't even want to move. We discussed depression. Consulted Psychiatry. Encouraged pt to get moving.
--- NOTE | 2019-09-11 17:54 | PN ---
PROGRESS NOTE DATE OF DICTATION: 09/11/2019 The patient is a 64-year-old pleasant white female who was diagnosed with acute myeloid leukemia. She was admitted to the hospital with rectal bleeding. She had one episode at home, and since being in the hospital no further episodes of bleeding. She had a bowel movement this morning, brown in color. No abdominal pain. No nausea, no vomiting. PHYSICAL EXAMINATION: She appears comfortable. No apparent distress. VITAL SIGNS: Stable. Blood pressure is 122/61, pulse rate 73, temperature afebrile. HEENT examination unremarkable. Conjunctivae pink. Sclerae anicteric. Oral cavity no lesions. NECK: No JVD or lymph node enlargement. CHEST: Clear to auscultation. HEART: Regular rate and rhythm. ABDOMEN: Soft. Bowel sounds are positive. No organomegaly. EXTREMITIES: No pedal edema. SKIN: No rashes. NEUROLOGIC: Alert and oriented x3. No focal deficits. LABS: Labs done today show WBC 4.2, hemoglobin 7.2, platelets 42,000. Hemoglobin at the time of admission to the hospital was 6.2. IMPRESSION: 1. Rectal bleeding, one episode, possibly anorectal pathology. No further episodes of bleeding since being in the hospital. Hemoglobin stable at 7.2 g/dL. 2. Acute myeloid leukemia diagnosed a few months ago, undergoing chemotherapy, presently on hold for the last 2 months. RECOMMENDATIONS: 1. Advance diet as tolerated. 2. Repeat CBC in the morning. 3. No plans for any endoscopic intervention at the present time. Thank you for this consultation. MMODL / IJN: [id number] /
[2019-09-12] MEDS: ALPRAZolam 0.25 MG TAB PO PRN ×2 (04:25→20:53)
[2019-09-12] MEDS: SODIUM CHLORIDE 0.9% 1,000 ML IV SCH (04:58)
[2019-09-12 07:25] LABS: Albumin 2.4 g/dL (3.5-5.0); Potassium 3.5 mmol/L (3.5-5.1); Total Bilirubin 1.9 mg/dL (0.2-1.3); Total Protein 5.7 g/dL (6.3-8.2)
[2019-09-12 07:34] LABS: Anisocytosis Moderate; HCT 20.5 % (34.0-46.0); MCH 33.2 pg (25.0-35.0); MCHC 32.8 g/dL (31.0-37.0); MCV 101.3 fL (80.0-100.0); Macrocytosis Marked; Mean Platelet Volume 8.7; Poikilocytosis Slight; RBC 2.02 m/uL (3.80-5.40); RDW 22.2 % (11.5-15.5); WBC 5.1 k/uL (3.8-10.6)
[2019-09-12 07:39] LABS: Platelet Count 38 k/uL (150-450)
[2019-09-12 08:53] LABS: Lymphocytes # (M) 1.22 k/uL (1.0-4.8); Monocytes # (M) 0.61 k/uL (0-1.0); Neutrophils # (M) 3.26 k/uL (1.3-7.7); Neutrophils % (M) 64 %; Nucleated Red Blood Cells 0 /100 WBC (0-0); Total Cells Counted 100
[2019-09-12] MEDS: CITALOPRAM HYDROBROMIDE 20 MG TAB PO SCH (08:56)
[2019-09-12] MEDS: METOPROLOL TARTRATE 50 MG TAB PO SCH ×2 (08:56→18:37)
[2019-09-12] MEDS: ALLOPURINOL 100 MG TAB PO SCH (08:56)
[2019-09-12] MEDS: PANTOPRAZOLE 40 MG/10 ML VIAL IV SCH ×2 (08:56→22:53)
[2019-09-12] MEDS: LORATADINE 10 MG TAB PO SCH (08:57)
[2019-09-12] MEDS: ACYCLOVIR 400 MG/10 ML CUP PO SCH ×2 (08:58→20:53)
[2019-09-12] MEDS: DIGOXIN 125 MCG TAB PO SCH (08:58)
[2019-09-12] MEDS: POTASSIUM BICARBONATE/CIT AC 20 MEQ TABLET.EFF PO SCH (08:58)
[2019-09-12] MEDS: NYSTATIN 100,000 UNIT/ML SUSP 500,000 UNIT/5 ML CUP PO SCH ×4 (08:59→22:54)
[2019-09-12] MEDS: Acetaminophen-Codeine 300-30mg TAB PO PRN (09:59)
--- NOTE | 2019-09-12 10:27 | P.PN ---
Subjective Progress Note Date: 09/12/19 This is a 64-year-old female patient who presented with complaints of GI bleed and anemia. Patient has a past medical history of acute myeloid leukemia in which he follows with oncology services not currently receiving chemotherapy, last chemotherapy June 2019 with 2 bone marrow biopsies. Additional medical history includes diabetes, hyperlipidemia, chronic anemia and hypertension. Per patient she had one episode of bright red stool at home. Patient denies being on any blood thinners. Patient denies any nausea vomiting or diarrhea. Patient denies any significant abdominal pain. Patient unable to recall last colonoscopy. Hemoglobin dropping to 6.2. Patient did receive 1 unit of PRBCs. Platelets chronically low 37. Per nursing staff patient has had no further episodes of bleeding. Stool was positive for occult blood. Patient admitted to the intensive care unit. Critical care, GI and oncology service is consulted. At this time patient denies chest pain or shortness of breath. Patient denies nausea vomiting or diarrhea. Patient denies any urinary burning or frequency. On 09/11/2019 patient's alert and oriented 3. Per nursing staff patient has had no further episodes of bleeding. Some nausea noted per patient. Hemoglobin 7.2. No plans for endoscopic studies at this time per GI services. Vitals have remained stable. Critical care has cleared patient to be transferred out of intensive care unit. At this time patient denies chest pain or shortness of breath. Patient denies nausea vomiting or diarrhea. Patient denies any urinary burning or frequency. On 09/12/2019 patient is alert and oriented 3. No further episodes of bleeding per nursing patient. hgb 6.7 1U PRBC has been ordered per oncology services. Patient denies pain or breath. Patient denies nausea vomiting or diarrhea. Patient denies any urinary burning or frequency. Objective - Vital Signs Vital signs: Vital Signs Temp 97.1 F L 09/12/19 05:22 Pulse 83 09/12/19 05:22 Resp 16 09/12/19 05:22 BP 115/70 09/12/19 05:22 Pulse Ox 94 L 09/12/19 05:22 Intake & Output 09/11/19 09/12/19 09/12/19 18:59 06:59 18:59 Intake Total 1245 Output Total 275 Balance 970 Intake: IV 1000 Sodium Chloride 0.9% 1, 1000 000 ml @ 125 mls/hr IV . Q8H LAST Rx#:[id number] Oral 120 Lipid 125 Sodium Chloride 0.9% 1, 125 000 ml @ 125 mls/hr IV . Q8H [facility] Rx#:[id number] Output: Urine 275 Other: Voiding Method Bedside Commode Bedside Commode # Voids 1 1 # Bowel Movements 1 - Exam Head normocephalic Neck supple Lungs clear to auscultation bilaterally no wheezing or crackles Heart regular rate and rhythm S1-S2, no rub or gallop Abdomen is soft nontender nondistended positive bowel sounds no hepatosplenomegaly Extremities no edema Neuro alert and orientated to 3 - Labs CBC & Chem 7: 09/12/19 06:43 09/12/19 06:43 Labs: Abnormal Lab Results - Last 24 Hours (Table) 09/09/19 09/12/19 09/12/19 Range/Units 14:05 06:43 06:43 RBC 2.02 L (3.80-5.40) m/uL Hgb 6.7 L* (11.4-16.0) gm/dL Hct 20.5 L (34.0-46.0) % MCV 101.3 H (80.0-100.0) fL RDW 22.2 H (11.5-15.5) % Plt Count 38 L (150-450) k/uL Macrocytosis Marked A Chloride 109 H (98-107) mmol/L BUN 6 L (7-17) mg/dL Calcium 7.0 L (8.4-10.2) mg/dL Total Bilirubin 1.9 H (0.2-1.3) mg/dL AST 13 L (14-36) U/L Total Protein 5.7 L (6.3-8.2) g/dL Albumin 2.4 L (3.5-5.0) g/dL Crossmatch See Detail Assessment and Plan Assessment: 1. Acute GI bleed. Stool positive for occult blood. Patient did receive 1 unit of PRBCs continue to monitor hemoglobin closely GI service is consulted. Hemoglobin 7.2. Per GI services patient started on clear liquid diet will hold off on endoscopic intervention at this time due to no further episodes of recurrent bleeding if hemoglobin remains stable diet to be advanced per GI. Hgb 6.7, 1U PRBC has been ordered per oncology services 2. Anemia secondary to acute blood loss and acute myeloid leukemia. Continue to monitor and transfuse as needed oncology service is consulted 3. Acute on chronic kidney disease stage stage III. Creatinine improving to 1.10 continue to monitor closely. Creatinine improving to 0.92. Bun 8. Resolved 4. Underlying history of acute myeloid leukemia. Last chemotherapy June 2019. per oncloy service patient is supposed to be on IDHIFA for IDH2 positive disease. per oncology this is not be given at this time, hold until seen by GI and plan is in place. 5. 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 History of diabetes mellitus type 2 7. History of essential hypertension 8. Generalized weakness. Will consult physical therapy 9. Lisa infection of the mouth nystatin ordered per oncology 10. Depression. Patient was a valid by psychiatry services due to lack motivation. Per psychiatry services patient to continue current psychiatric treatment as an outpatient.. Continue Celexa and Xanax. No further workup per psychiatry team DVT prophylaxis SCDs due to GI bleed. GI prophylaxis Protonix Continue to monitor hemoglobin closely Critical care, GI services and oncology service is following PT OT and social work consult placed I performed an examination of the patient and discussed their management with the Nurse Practitioner. I have reviewed the Nurse Practitioner's notes and agree with the documented findings and plan of care
--- NOTE | 2019-09-12 11:39 | P.PN ---
Subjective Progress Note Date: 09/12/19 Principal diagnosis: Acute lower GI tract gastrointestinal bleeding On 09/11/2019 patient seen in follow-up in the intensive care unit, she is awake and alert, in no acute distress, there has been no recurrence of bleeding overnight, no maroon or black stools, no hematemesis. Patient denies any abdominal discomfort, abdomen is nontender, soft, no lightheadedness, no dizziness, no complaints of shortness of breath or chest pain, no fever or chills. She is tolerating oral diet. Patient did receive 1 unit of your EGD dated red blood cells yesterday, today's hemoglobin is 7.2. Hemodynamically patient remains stable, 0.9 normal saline at a rate of 125 ML per hour. On 09/12/2019 patient seen in follow-up on oncology floor. She is awake and alert, in no acute distress, denies any further bleeding in the last 24 hours, today's hemoglobin is 6.7, patient will be transfused with 1 unit of packed red blood cells per oncology services, denies any shortness of breath or chest pain, vital signs are stable, she is tolerating oral diet, no nausea vomiting or diarrhea. Objective - Vital Signs Vital signs: Vital Signs Temp 97.1 F L 09/12/19 05:22 Pulse 83 09/12/19 05:22 Resp 16 09/12/19 05:22 BP 115/70 09/12/19 05:22 Pulse Ox 94 L 09/12/19 05:22 Intake & Output 09/11/19 09/12/19 09/12/19 18:59 06:59 18:59 Intake Total 1245 Output Total 275 Balance 970 Intake: IV 1000 Sodium Chloride 0.9% 1, 1000 000 ml @ 125 mls/hr IV . Q8H LAST Rx#:[id number] Oral 120 Lipid 125 Sodium Chloride 0.9% 1, 125 000 ml @ 125 mls/hr IV . Q8H LAST Rx#:[id number] Output: Urine 275 Other: Voiding Method Bedside Commode Bedside Commode # Voids 1 1 # Bowel Movements 1 - Exam GENERAL EXAM: Alert, pleasant, 64-year-old female 2 L of oxygen with a pulse ox of 94% comfortable in no apparent distress. HEAD: Normocephalic/atraumatic. EYES: Normal reaction of pupils, equal size. Conjunctiva pink, sclera white. NOSE: Clear with pink turbinates. THROAT: No erythema or exudates. NECK: No masses, no JVD, no thyroid enlargement, no adenopathy. CHEST: No chest wall deformity. Symmetrical expansion. LUNGS: Equal air entry with no crackles, wheeze, rhonchi or dullness. CVS: Regular rate and rhythm, normal S1 and S2, no gallops, no murmurs, no rubs ABDOMEN: Soft, nontender. No hepatosplenomegaly, normal bowel sounds, no guarding or rigidity. EXTREMITIES: No clubbing, no edema, no cyanosis, 2+ pulses and upper and lower extremities. MUSCULOSKELETAL: Muscle strength and tone normal. SPINE: No scoliosis or deformity SKIN: No rashes CENTRAL NERVOUS SYSTEM: Alert and oriented -3. No focal deficits, tone is normal in all 4 extremities. PSYCHIATRIC: Alert and oriented -3. Appropriate affect. Intact judgment and insight. - Labs CBC & Chem 7: 09/12/19 06:43 09/12/19 06:43 Labs: Abnormal Lab Results - Last 24 Hours (Table) 09/09/19 09/12/19 09/12/19 Range/Units 14:05 06:43 06:43 RBC 2.02 L (3.80-5.40) m/uL Hgb 6.7 L* (11.4-16.0) gm/dL Hct 20.5 L (34.0-46.0) % MCV 101.3 H (80.0-100.0) fL RDW 22.2 H (11.5-15.5) % Plt Count 38 L (150-450) k/uL Macrocytosis Marked A Chloride 109 H (98-107) mmol/L BUN 6 L (7-17) mg/dL Calcium 7.0 L (8.4-10.2) mg/dL Total Bilirubin 1.9 H (0.2-1.3) mg/dL AST 13 L (14-36) U/L Total Protein 5.7 L (6.3-8.2) g/dL Albumin 2.4 L (3.5-5.0) g/dL Crossmatch See Detail Assessment and Plan Plan: Assessment: #1. Acute gastrointestinal bleeding, patient presented with maroon-colored stools and hemoglobin of 5.7 #2. Acute on chronic anemia #3. 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 Thrombocytopenia probably related to chemotherapy #5. Chronic kidney disease #6. History of diabetes mellitus #7. History of hypertension #8. History of hyperlipidemia Plan: No further bleeding, today's hemoglobin is 6.7, patient will be transfused with 1 unit of packed red blood cells, hemodynamically remains stable, tolerating oral diet, no acute issues overnight, we'll sign off and follow on as-needed basis. I performed a history & physical examination of the patient and discussed their management with my nurse practitioner, Nichelle Powell. I reviewed the nurse practitioner's note and agree with the documented findings and plan of care. Lung sounds are positive for clear breath sounds. The findings and the impression was discussed with the patient. I attest to the documentation by the nurse practitioner. Time with Patient: Less than 30
[2019-09-12 15:17] VITALS: BMI 29.8
--- NOTE | 2019-09-12 16:00 | PN ---
PROGRESS NOTE DATE OF DICTATION: 09/12/2019 Patient is a 64-year-old pleasant white female with history of acute myeloid leukemia who is undergoing chemotherapy, presently on hold for the last 2 months' duration, admitted to the hospital with rectal bleeding. She is doing well since being in the hospital. No further episodes of bleeding. No abdominal pain. No nausea or vomiting. PHYSICAL EXAMINATION: Appears comfortable. No apparent distress. VITAL SIGNS: Stable. Blood pressure is 121/67, pulse rate 74, temperature 98. HEENT examination unremarkable. Conjunctivae pink. Sclerae anicteric. Oral cavity no lesions. NECK: No JVD or lymph node enlargement. CHEST: Clear to auscultation. HEART: Regular rate and rhythm. ABDOMEN: Soft. Bowel sounds are positive. No organomegaly. EXTREMITIES: No pedal edema. SKIN: No rashes. NEUROLOGIC: Alert and oriented x3. No focal deficits. LABS: WBC 5.1, hemoglobin 6.7, platelets 38,000. Yesterday hemoglobin was 7.2. BUN and creatinine are 6 and 0.9, respectively. T-bilirubin 1.9. AST and ALT are normal. IMPRESSION: 1. Rectal bleeding x1, and no recurrence since being in the hospital. 2. Anemia with a hemoglobin of 6.7 requiring one unit of blood transfusion. She already had received another unit at the time of admission to the hospital. Clinically no active bleeding. Most likely related to underlying leukemia. 3. Acute myeloid leukemia diagnosed 6 months ago. Undergoing chemotherapy, presently on hold for the last 2 months, and she follows with Dr. Arora. RECOMMENDATIONS: 1. Monitor CBC on a daily basis. 2. Agree with blood transfusion. 3. No plans for any endoscopic intervention. Thank you for this consultation. MMODL / IJN: [id number] /
--- NOTE | 2019-09-12 18:53 | P.PN ---
Subjective Progress Note Date: 09/12/19 Principal diagnosis: BRBPR In f/u today pt denied nausea, GABBIE, abd pain, appetite decent, dysuria, last BM was reported brown and formed. She states she walked in the hallway today Objective - Vital Signs Vital signs: Vital Signs Temp 98 F 09/12/19 16:22 Pulse 75 09/12/19 16:22 Resp 18 09/12/19 16:22 BP 126/70 09/12/19 16:22 Pulse Ox 97 09/12/19 16:20 Intake & Output 09/11/19 09/12/19 09/12/19 18:59 06:59 18:59 Intake Total 1245 710 Output Total 275 2 Balance 970 708 Weight 78.9 kg Intake: IV 1000 Sodium Chloride 0.9% 1, 1000 000 ml @ 125 mls/hr IV . Q8H LAST Rx#:[id number] Intake, IV Titration 100 Amount Sodium Chloride 0.9% 1, 100 000 ml @ 125 mls/hr IV . Q8H LAST Rx#:[id number] Oral 120 300 Blood Product 310 Rc Irr As1 Unit 310 [id number] Lipid 125 Sodium Chloride 0.9% 1, 125 000 ml @ 125 mls/hr IV . Q8H LAST Rx#:[id number] Output: Urine 275 Stool 2 Other: Voiding Method Bedside Commode Bedside Commode Bedside Commode Bedpan Diaper # Voids 1 1 2 # Bowel Movements 1 - Constitutional General appearance: Present: average body habitus, cooperative, no acute distress - EENT Eyes: Present: anicteric sclerae, EOMI ENT: Present: hearing grossly normal, normal oropharynx - Respiratory Respiratory: bilateral: CTA - Cardiovascular Rhythm: regular Heart sounds: normal: S1, S2 - Peripheral edema leg Peripheral Edema: bilateral: Trace - Gastrointestinal General gastrointestinal: Present: normal bowel sounds, soft - Neurologic Neurologic: Present: CNII-XII intact - Musculoskeletal Musculoskeletal: Present: generalized weakness - Psychiatric Psychiatric Comment(s): Patient answers questions correctly, she has trouble staying on topic and sometimes she does not make any sense-very random Psychiatric: Present: A&O x's 3, appropriate affect - Allied health notes Allied health notes reviewed: nursing - Labs CBC & Chem 7: 09/12/19 06:43 09/12/19 06:43 Labs: Abnormal Lab Results - Last 24 Hours (Table) 09/09/19 09/12/19 09/12/19 Range/Units 14:05 06:43 06:43 RBC 2.02 L (3.80-5.40) m/uL Hgb 6.7 L* (11.4-16.0) gm/dL Hct 20.5 L (34.0-46.0) % MCV 101.3 H (80.0-100.0) fL RDW 22.2 H (11.5-15.5) % Plt Count 38 L (150-450) k/uL Macrocytosis Marked A Chloride 109 H (98-107) mmol/L BUN 6 L (7-17) mg/dL Calcium 7.0 L (8.4-10.2) mg/dL Total Bilirubin 1.9 H (0.2-1.3) mg/dL AST 13 L (14-36) U/L Total Protein 5.7 L (6.3-8.2) g/dL Albumin 2.4 L (3.5-5.0) g/dL Crossmatch See Detail Assessment and Plan (1) Hematochezia Narrative/Plan: GI consulted for positive occult and family report of bleeding from rectum, Hgb dropped today. No plans for acute endo per GI note Pt Hgb in office on 09/06 was 7.9. Current Visit: Yes Status: Acute Priority: High Code(s): K92.1 - MELENA SNOMED Code(s): 160392683 (2) Bicytopenia Narrative/Plan: Hgb down from pt [id number]. Plt down from baseline 60-90K. Pt needing another unit PRBCs today. No plt at this time. No anticoagulation, ASA, NSAIDs, ibuprofen. CBC daily Current Visit: Yes Status: Chronic Priority: High Code(s): D75.89 - OTHER SPECIFIED DISEASES OF BLOOD AND BLOOD-FORMING ORGANS SNOMED Code(s): 78645921 (3) Acute myelomonocytic leukemia not having achieved remission Narrative/Plan: Pt is supposed to be on IDHIFA for IDH2 positive disease-supposed to be in 100mg QD. Unable to contact to confirm that she is taking. Unable to contact him to bring med in for her to continue as it would be preferable not to hold too long. No evidence to suggest conversion syndrome, close lab monitoring. Current Visit: Yes Status: Chronic Priority: High Code(s): C92.50 - ACUTE MYELOMONOCYTIC LEUKEMIA, NOT HAVING ACHIEVED REMISSION SNOMED Code(s): 762543049 (4) Lisa infection of mouth Narrative/Plan: Nystatin suspension ordered, mouth better today Current Visit: Yes Status: Acute Priority: High Code(s): B37.0 - CANDIDAL STOMATITIS SNOMED Code(s): 98136588 Plan: Cont to encourage ambulation
[2019-09-12 19:58] LABS: Anisocytosis Moderate; HCT 24.7 % (34.0-46.0); MCH 33.5 pg (25.0-35.0); MCV 98.5 fL (80.0-100.0); Macrocytosis Moderate; Mean Platelet Volume 8.3; Poikilocytosis Slight; RBC 2.51 m/uL (3.80-5.40); RDW 21.2 % (11.5-15.5); WBC 6.1 k/uL (3.8-10.6)
[2019-09-12 20:29] LABS: HGB 8.4 gm/dL (11.4-16.0); Platelet Count 41 k/uL (150-450)
[2019-09-13] MEDS: Acetaminophen-Codeine 300-30mg TAB PO PRN (05:01)
[2019-09-13 05:16] VITALS: RESP 17
[2019-09-13] MEDS: SODIUM CHLORIDE 0.9% 1,000 ML IV SCH ×4 (05:18→07:56)
[2019-09-13] MEDS: CITALOPRAM HYDROBROMIDE 20 MG TAB PO SCH (07:55)
[2019-09-13] MEDS: LORATADINE 10 MG TAB PO SCH (07:55)
[2019-09-13] MEDS: PANTOPRAZOLE 40 MG/10 ML VIAL IV SCH (07:55)
[2019-09-13] MEDS: NYSTATIN 100,000 UNIT/ML SUSP 500,000 UNIT/5 ML CUP PO SCH ×2 (07:55→13:35)
[2019-09-13] MEDS: ALLOPURINOL 100 MG TAB PO SCH (07:55)
[2019-09-13] MEDS: METOPROLOL TARTRATE 50 MG TAB PO SCH (07:55)
[2019-09-13] MEDS: ACYCLOVIR 400 MG/10 ML CUP PO SCH (07:56)
[2019-09-13] MEDS: DIGOXIN 125 MCG TAB PO SCH (07:56)
[2019-09-13] MEDS: POTASSIUM BICARBONATE/CIT AC 20 MEQ TABLET.EFF PO SCH (07:57)
[2019-09-13 08:08] LABS: Anisocytosis Moderate; HCT 23.4 % (34.0-46.0); MCH 33.4 pg (25.0-35.0); MCHC 34.2 g/dL (31.0-37.0); MCV 97.6 fL (80.0-100.0); Macrocytosis Moderate; Mean Platelet Volume 8.5; Poikilocytosis Slight; RDW 21.3 % (11.5-15.5); WBC 4.4 k/uL (3.8-10.6)
[2019-09-13 08:15] LABS: Platelet Count 47 k/uL (150-450)
[2019-09-13 08:43] LABS: Albumin 2.5 g/dL (3.5-5.0); Calcium 7.4 mg/dL (8.4-10.2); Potassium 3.1 mmol/L (3.5-5.1); Total Bilirubin 1.9 mg/dL (0.2-1.3); Total Protein 5.8 g/dL (6.3-8.2)
[2019-09-13 09:13] LABS: Lymphocytes # (M) 1.72 k/uL (1.0-4.8); Monocytes # (M) 0.48 k/uL (0-1.0); Neutrophils % (M) 50 %; Nucleated Red Blood Cells 0 /100 WBC (0-0); Total Cells Counted 100
[2019-09-13 10:51] LABS: HGB 6.7 gm/dL (11.4-16.0)
[2019-09-13 12:35] VITALS: BP 109/73; PULSE 81; TEMP 96.9
--- NOTE | 2019-09-13 14:12 | P.DS ---
Providers Date of admission: 09/09/19 14:43 Expected date of discharge: 09/13/19 Attending physician: Chris Galeana Consults: 09/09/19 14:43 Consult Physician Routine Consulting Provider: Ivon Mendez Consult Reason/Comments: Lower GI bleed, anemia Do you want consulting provider notified?: Yes Consult Physician Stat Consulting Provider: Tigist Colmenares Consult Reason/Comments: ICU admission Do you want consulting provider notified?: Yes 09/09/19 16:59 Consult Physician Routine Consulting Provider: Francisco Carson Consult Reason/Comments: AML dx. - anemia Do you want consulting provider notified?: Yes, Notify in am Primary care physician: Kat [facility] Course: Discharge diagnosis 1. Acute GI bleed. Stool positive for occult blood. Patient did receive 1 unit of PRBCs continue to monitor hemoglobin closely GI service is consulted. Hemoglobin 7.2. Per GI services patient started on clear liquid diet will hold off on endoscopic intervention at this time due to no further episodes of recurrent bleeding if hemoglobin remains stable diet to be advanced per GI. Hgb 6.7, 1U PRBC has been ordered per oncology services. Hemoglobin 8.0. Patient has been cleared for discharge from cardiology services. Repeat CBC ordered for 2 days 2. Anemia secondary to acute blood loss and acute myeloid leukemia. Continue to monitor and transfuse as needed oncology service is consulted. Hemoglobin stable 8.0. Cleared for discharge from oncology services 3. Acute on chronic kidney disease stage stage III. Creatinine improving to 1. 10 continue to monitor closely. Creatinine improving to 0.92. Bun 8. Resolved 4. Underlying history of acute myeloid leukemia. Last chemotherapy June 2019. per oncloy service patient is supposed to be on IDHIFA for IDH2 positive disease. per oncology this is not be given at this time, hold until seen by GI and plan is in place. 5. 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 History of diabetes mellitus type 2 7. History of essential hypertension 8. Generalized weakness. Will consult physical therapy 9. Lisa infection of the mouth nystatin ordered per oncology 10. Depression. Patient was a valid by psychiatry services due to lack motivation. Per psychiatry services patient to continue current psychiatric treatment as an outpatient.. Continue Celexa and Xanax. No further workup per psychiatry team Hospital course This is a 64-year-old female patient who presented with complaints of GI bleed and anemia. Patient has a past medical history of acute myeloid leukemia in which he follows with oncology services not currently receiving chemotherapy, last chemotherapy June 2019 with 2 bone marrow biopsies. Additional medical history includes diabetes, hyperlipidemia, chronic anemia and hypertension. Per patient she had one episode of bright red stool at home. Patient denies being on any blood thinners. Patient denies any nausea vomiting or diarrhea. Patient denies any significant abdominal pain. Patient unable to recall last colonoscopy. Hemoglobin dropping to 6.2. Patient did receive 1 unit of PRBCs. Platelets chronically low 37. Per nursing staff patient has had no further episodes of bleeding. Stool was positive for occult blood. Patient admitted to the intensive care unit. Critical care, GI and oncology service is consulted. At this time patient denies chest pain or shortness of breath. Patient denies nausea vomiting or diarrhea. Patient denies any urinary burning or frequency. On 09/11/2019 patient's alert and oriented 3. Per nursing staff patient has had no further episodes of bleeding. Some nausea noted per patient. Hemoglobin 7.2. No plans for endoscopic studies at this time per GI services. Vitals have remained stable. Critical care has cleared patient to be transferred out of intensive care unit. At this time patient denies chest pain or shortness of breath. Patient denies nausea vomiting or diarrhea. Patient denies any urinary burning or frequency. On 09/12/2019 patient is alert and oriented 3. No further episodes of bleeding per nursing patient. hgb 6.7 1U PRBC has been ordered per oncology services. Patient denies pain or breath. Patient denies nausea vomiting or diarrhea. Patient denies any urinary burning or frequency. On 09/13/2019 patient's alert and oriented 3. No further episodes of bleeding per nursing staff and patient. Hemoglobin stable at 8.0. Patient has been cleared for discharge from oncology standpoint. Evaluate by physical therapy recommending home. Patient denies chest pain or shortness breath. Patient denies nausea vomiting or diarrhea. Patient denies any urinary burning or frequency. Patient follow with oncology services for further plan of care. Repeat CBC ordered for 2 days I performed an examination of the patient and discussed their management with the Nurse Practitioner. I have reviewed the Nurse Practitioner's notes and agree with the documented findings and plan of care Patient Condition at Discharge: Stable Plan - Discharge Summary Discharge Rx Participant: No New Discharge Prescriptions: New Nystatin 100,000 Unit/ml Susp [Mycostatin Oral Susp] 500,000 unit PO QID 10 Days #40 cup Continue Acetaminophen-Codeine 300-30mg [Tylenol w/codeine #3] 1 tab PO Q6H PRN PRN Reason: Pain Loperamide [Imodium] 2 mg PO QID PRN #30 cap PRN Reason: Diarrhea Potassium Chloride Oral Liquid 40 meq PO DAILY@0700 ALPRAZolam [Xanax] 0.25 mg PO Q6H PRN PRN Reason: Anxiety Acyclovir [Zovirax] 400 mg PO BID@0700,2100 Allopurinol [Zyloprim] 100 mg PO DAILY@0700 Cetirizine HCl [Zyrtec] 10 mg PO DAILY@0700 Citalopram Hydrobromide [CeleXA] 20 mg PO DAILY@0700 Digoxin [Lanoxin] 125 mcg PO DAILY@0700 Dronabinol [Marinol] 2.5 mg PO BID@0700,1700 Enasidenib Mesylate [Idhifa] 100 mg PO DAILY@1700 Metoprolol Tartrate [Lopressor] 50 mg PO BID@0700,1700 Multivitamins, Thera [Multivitamin (formulary)] 1 tab PO DAILY Ondansetron [Zofran] 4 mg PO Q8H PRN PRN Reason: Nausea Discharge Medication List Acetaminophen-Codeine 300-30mg [Tylenol w/codeine #3] 1 tab PO Q6H PRN 05/07/19 [History] Loperamide [Imodium] 2 mg PO QID PRN #30 cap 05/25/19 [Rx] ALPRAZolam [Xanax] 0.25 mg PO Q6H PRN 06/29/19 [History] Potassium Chloride Oral Liquid 40 meq PO DAILY@0700 06/29/19 [History] Acyclovir [Zovirax] 400 mg PO BID@0700,2100 09/09/19 [History] Allopurinol [Zyloprim] 100 mg PO DAILY@0700 09/09/19 [History] Cetirizine HCl [Zyrtec] 10 mg PO DAILY@0700 09/09/19 [History] Citalopram Hydrobromide [CeleXA] 20 mg PO DAILY@0700 09/09/19 [History] Digoxin [Lanoxin] 125 mcg PO DAILY@0700 09/09/19 [History] Dronabinol [Marinol] 2.5 mg PO BID@0700,1700 09/09/19 [History] Enasidenib Mesylate [Idhifa] 100 mg PO DAILY@1700 09/09/19 [History] Metoprolol Tartrate [Lopressor] 50 mg PO BID@0700,1700 09/09/19 [History] Multivitamins, Thera [Multivitamin (formulary)] 1 tab PO DAILY 09/09/19 [History] Ondansetron [Zofran] 4 mg PO Q8H PRN 09/09/19 [History] Nystatin 100,000 Unit/ml Susp [Mycostatin Oral Susp] 500,000 unit PO QID 10 Days #40 cup 09/13/19 [Rx] Follow up Appointment(s)/Referral(s): Kat Fox MD [Primary Care Provider] - 1-2 days Ambulatory/Diagnostic Orders: Complete Blood Count w/diff [LAB.AMB] Time Frame: 2 Days, Location: None Selected
--- NOTE | 2019-09-13 17:16 | PN ---
PROGRESS NOTE DATE OF DICTATION: 09/13/2019 The patient is a 64-year-old pleasant white female with acute myeloid leukemia admitted to the hospital with one episode of rectal bleeding that happened prior to admission. Since then she has been doing well. In the hospital she has not had any further episodes of rectal bleeding. Her initial hemoglobin was 6.5 g/dL and subsequently she received 2 units of blood transfusion. Today hemoglobin is 8 g/dL. She denies any symptoms. PHYSICAL EXAMINATION: Appears comfortable. No apparent distress. Vital signs stable. Blood pressure is 112/70, pulse rate 81 and temperature 96.9. HEENT examination unremarkable. Conjunctivae pink. Sclerae anicteric. Oral cavity no lesions. NECK: No JVD or lymph node enlargement. CHEST: Clear to auscultation. HEART: Regular rate and rhythm. ABDOMEN: Soft. Bowel sounds are positive. No organomegaly. EXTREMITIES: No pedal edema. SKIN: No rashes. NEUROLOGIC: Alert and oriented x3. No focal deficits. LABS: Labs from today show hemoglobin 8, WBC 4.1, platelets 47,000. IMPRESSION: 1. Rectal bleeding, one episode. No recurrence since being in the hospital. Hemoglobin stable at 8.4 g/dL. 2. Acute myeloid leukemia, undergoing chemotherapy, last in June of this year. 3. Mild pancytopenia. RECOMMENDATIONS: Advance diet as tolerated. The patient is being discharged home today. She was advised to call me if she has any rectal bleeding. Thank you for this consultation. MMODL / FERNANDAN: [id number] /
--- NOTE | 2019-09-13 18:04 | P.PN ---
Subjective Progress Note Date: 09/13/19 Principal diagnosis: BRBPR In f/u today pt had no physical c/o. Objective - Vital Signs Vital signs: Vital Signs Temp 96.9 F L 09/13/19 12:34 Pulse 81 09/13/19 12:34 Resp 17 09/13/19 16:25 BP 109/73 09/13/19 12:34 Pulse Ox 96 09/13/19 12:34 Intake & Output 09/12/19 09/13/19 09/13/19 18:59 06:59 18:59 Intake Total 710 1000 900 Output Total 2 277 Balance 708 723 900 Weight 78.9 kg Intake: IV 700 Sodium Chloride 0.9% 1, 700 000 ml @ 125 mls/hr IV . Q8H LAST Rx#:[id number] Intake, IV Titration 100 500 Amount Sodium Chloride 0.9% 1, 100 500 000 ml @ 125 mls/hr IV . Q8H LAST Rx#:[id number] Oral 300 500 200 Blood Product 310 Rc Irr As1 Unit 310 [id number] Output: Urine 275 Stool 2 2 Other: Voiding Method Bedside Commode Bedside Commode Bedside Commode Bedpan Bedpan Bedpan Diaper Diaper Diaper # Voids 2 2 2 - Constitutional General appearance: Present: average body habitus, cooperative, no acute distress - EENT Eyes: Present: anicteric sclerae, EOMI - Respiratory Details: resp even and unlabored - Musculoskeletal Musculoskeletal Comment(s): Pt laying in bed - Psychiatric Psychiatric: Present: A&O x's 3 - Labs CBC & Chem 7: 09/13/19 07:25 09/13/19 07:25 Labs: Abnormal Lab Results - Last 24 Hours (Table) 09/12/19 09/12/19 09/13/19 Range/Units 06:43 19:28 07:25 RBC 2.51 L 2.40 L (3.80-5.40) m/uL Hgb 6.7 L* 8.4 L D 8.0 L (11.4-16.0) gm/dL Hct 24.7 L 23.4 L (34.0-46.0) % RDW 21.2 H 21.3 H (11.5-15.5) % Plt Count 41 L 47 L (150-450) k/uL Potassium (3.5-5.1) mmol/L BUN (7-17) mg/dL Calcium (8.4-10.2) mg/dL Total Bilirubin (0.2-1.3) mg/dL AST (14-36) U/L Total Protein (6.3-8.2) g/dL Albumin (3.5-5.0) g/dL 09/13/19 Range/Units 07:25 RBC (3.80-5.40) m/uL Hgb (11.4-16.0) gm/dL Hct (34.0-46.0) % RDW (11.5-15.5) % Plt Count (150-450) k/uL Potassium 3.1 L (3.5-5.1) mmol/L BUN 6 L (7-17) mg/dL Calcium 7.4 L (8.4-10.2) mg/dL Total Bilirubin 1.9 H (0.2-1.3) mg/dL AST 13 L (14-36) U/L Total Protein 5.8 L (6.3-8.2) g/dL Albumin 2.5 L (3.5-5.0) g/dL Assessment and Plan (1) Hematochezia Status: Resolved Priority: High Code(s): K92.1 - MELENA SNOMED Code(s): 4 56588211 (2) Bicytopenia Narrative/Plan: Hgb baseline, plt near increasing. F/U outpatient CBC with transfusions PRN Status: Chronic Priority: High Code(s): D75.89 - OTHER SPECIFIED DISEASES OF BLOOD AND BLOOD-FORMING ORGANS SNOMED Code(s): 67947614 (3) Acute myelomonocytic leukemia not having achieved remission Narrative/Plan: Resume Idhifa, f/u Dr. Carson Status: Chronic Priority: High Code(s): C92.50 - ACUTE MYELOMONOCYTIC LEUKEMIA, NOT HAVING ACHIEVED REMISSION SNOMED Code(s): 914434999 (4) Lisa infection of mouth Narrative/Plan: Nystatin suspension until resolved Status: Acute Priority: High Code(s): B37.0 - CANDIDAL STOMATITIS SNOMED Code(s): 12330885 Plan: Cont to encourage ambulation Ok from Hem/Onc for DC once cleared by Attending and Consulting Physicians
--- NOTE | 2019-09-17 08:18 | CDI ---
Documentation Clarification Form Date: 09/17/19 From: Sofía Davis Phone: If you have a question about this query, please contact Mary Velasco Food And Beverage Assistant at [phone] between 8am and 5pm. Admit Date: 09/09/19 Discharge Date:09/13/19 Patient Name: Mey Hernandez Visit Number: [id number] ATTENTION: The Clinical Documentation Specialists (CDI) and [facility] Coding Staff appreciate your assistance in clarifying documentation. Please respond to the clarification below the line at the bottom and electronically sign. The CDI & [facility] Coding staff will review the response and follow-up if needed. Please note: Queries are made part of the Legal Health Record. If you have any questions, please contact the author of this message via ITS. Dear Dr. Chris Galeana Conflicting documentation has been found in the medical record: Pancytopenia is documented in your H&P, discharge summary, 09/11 - 09/[address] Mendez's 09/13 progress note. Bicytopenia is documented in Dr. Llanos's consult note and 09/11 - 09/13 progress notes. Anemia secondary to acute myeloid leukemia is documented in the ED note, Dr. Schmidt's consult note, H&P, your 09/11 & 09/12 progress notes and discharge summary. Thrombocytopenia probably related to chemotherapy is documented in Dr. Mendez's consult note and Dr. Schmidt's 09/11 & 09/12 progress notes. History/Risk Factors: Patient has acute myeloid leukemia and GI bleed. Clinical Indicators: decreased H&H and platelets, Hemoglobin: 6.2 - 8.0 Hematocrit: 21.9 WBC: 4.2 - 6.1 RBC: 1.84 - 2.51 Platelets: 37 - 56 Treatment: Transfusion of PRBCs on 09/10 & 09/12 In order to capture the severity of the condition, please clarify the type(s) of anemia and etiology if known? Pancytopenia Neutropenia Leukopenia Thrombocytopenia Anemia, please specify Other explanation of clinical findings Unable to determine (no explanation for clinical findings) Pacytopenia secondary to known acute myeloid leukemia and GI bleed MTDD
== END 2019-09-13 16:34 | disposition home or self-care (01) | DRG 812 ==
LOC: EC 11:46 → 2SICU 14:43 → 3NMEDONC 09-11 15:40
PROVIDERS: ADMIT Internal Medicine; ATTEND Internal Medicine
PROC: 30233N1 Transfusion of Nonautologous Red Blood Cells into Peripheral Vein, Percutaneous Approach (ICD-10-PCS; principal; 2019-09-10)
DX: D62 Acute posthemorrhagic anemia (principal); B37.0 Candidal stomatitis; C92.50 Acute myelomonocytic leukemia, not having achieved remission; K92.2 Gastrointestinal hemorrhage, unspecified; N17.9 Acute kidney failure, unspecified; D61.818 Other pancytopenia; D63.0 Anemia in neoplastic disease; E11.22 Type 2 diabetes mellitus with diabetic chronic kidney disease; N18.3 Chronic kidney disease, stage 3 (moderate); E78.5 Hyperlipidemia, unspecified; F32.9 Major depressive disorder, single episode, unspecified; I12.9 Hypertensive chronic kidney disease with stage 1 through stage 4 chronic kidney disease, or unspecified chronic kidney disease; R32 Unspecified urinary incontinence; Z79.899 Other long term (current) drug therapy; Z91.040 Latex allergy status; Z80.3 Family history of malignant neoplasm of breast; Z80.9 Family history of malignant neoplasm, unspecified
CPT/HCPCS: 36415; 80048; 80053; 82272; 82550; 83735; 84132; 84484; 85025; 85027; 85610; 85730; 86850; 86900; 86901; 86920; 93005; 96374; 99285

== ENCOUNTER 2019-10-17 10:42 | Inpatient (IN) | payer MEDICARE ==
[2019-10-17] MEDS ORDERED: SODIUM CHLORIDE 0.9% 1,000 ML IV STA (11:00)
--- NOTE | 2019-10-17 11:02 | ED ---
General Adult HPI <Steven Antonio - Last Filed: 10/17/19 12:45> - General Source: patient, RN notes reviewed Mode of arrival: ambulatory Limitations: no limitations <Brice Ching - Last Filed: 10/17/19 12:50> - General Chief complaint: Weakness Stated complaint: Weakness Time Seen by Provider: 10/17/19 10:54 - History of Present Illness Initial comments: 64-year-old female with a past medical history of AML presents to the emergency department for a chief complaint of weakness. Patient has felt weak for about 4 days. states that she usually gets up and goes to the bathroom on her own but has not been able to do so. States he is having difficulty getting her out of bed it. Patient states that she saw Dr. Carson's [employer] for a checkup on and stopped her Idhifa because her hemoglobin was low. She denies fevers. She denies cough congestion.Patient has no other complaints at this time including shortness of breath, chest pain, abdominal pain, nausea or vomiting, headache, or visual changes. (Brice Ching) - Related Data Home Medications Medication Instructions Recorded Confirmed Acetaminophen-Codeine 300-30mg 1 tab PO Q6H PRN 05/07/19 09/09/19 [Tylenol w/codeine #3] ALPRAZolam [Xanax] 0.25 mg PO Q6H PRN 06/29/19 09/09/19 Potassium Chloride Oral Liquid 40 meq PO DAILY@0700 06/29/19 09/09/19 Acyclovir [Zovirax] 400 mg PO BID@0700,2100 09/09/19 09/09/19 Allopurinol [Zyloprim] 100 mg PO DAILY@0700 09/09/19 09/09/19 Cetirizine HCl [Zyrtec] 10 mg PO DAILY@0700 09/09/19 09/09/19 Citalopram Hydrobromide [CeleXA] 20 mg PO DAILY@0700 09/09/19 09/09/19 Digoxin [Lanoxin] 125 mcg PO DAILY@0700 09/09/19 09/09/19 Dronabinol [Marinol] 2.5 mg PO BID@0700,1700 09/09/19 09/09/19 Enasidenib Mesylate [Idhifa] 100 mg PO DAILY@1700 09/09/19 09/09/19 Metoprolol Tartrate [Lopressor] 50 mg PO BID@0700,1700 09/09/19 09/09/19 Multivitamins, Thera [Multivitamin 1 tab PO DAILY 09/09/19 09/09/19 (formulary)] Ondansetron [Zofran] 4 mg PO Q8H PRN 09/09/19 09/09/19 Previous Rx's Medication Instructions Recorded Loperamide [Imodium] 2 mg PO QID PRN #30 cap 05/25/19 Nystatin 100,000 Unit/ml Susp 500,000 unit PO QID 10 Days #40 cup 09/13/19 [Mycostatin Oral Susp] Allergies Allergy/AdvReac Type Severity Reaction Status Date / Time latex Allergy Rash/Hives Verified 09/09/19 14:31 Review of Systems ROS Other: All systems not noted in ROS Statement are negative. <Steven Antonio - Last Filed: 10/17/19 12:45> ROS Other: All systems not noted in ROS Statement are negative. <Brice Ching - Last Filed: 10/17/19 12:50> ROS Statement: Those systems with pertinent positive or pertinent negative responses have been documented in the HPI. Past Medical History Past Medical History: Cancer, Diabetes Mellitus, Hyperlipidemia, Hypertension Additional Past Medical History / Comment(s): AML diagnosed 03/2019. chemo last in 2018. new dx. of GI bleed. anemia History of Any Multi-Drug Resistant Organisms: None Reported Past Surgical History: No Surgical Hx Reported Additional Past Surgical History / Comment(s): picc line. bone marrow bx x2 Past Anesthesia/Blood Transfusion Reactions: No Reported Reaction Past Psychological History: No Psychological Hx Reported Smoking Status: Never smoker Past Alcohol Use History: None Reported Past Drug Use History: None Reported - Past Family History Mother Family Medical History: Cancer Sister(s) Family Medical History: Cancer Additional Family Medical History / Comment(s): breast CA <Brice Ching - Last Filed: 10/17/19 12:50> General Exam Limitations: no limitations <Brice Ching - Last Filed: 10/17/19 12:50> Course <Steven Antonio - Last Filed: 10/17/19 12:45> Vital Signs 10/17/19 10:46 Temperature 97.9 F Pulse Rate 94 Respiratory 18 Rate Blood Pressure 101/59 O2 Sat by Pulse 99 Oximetry - Reevaluation(s) Reevaluation #1: 10/17/19 12:45 PA supervision: I proceeded [id number] evaluation the patient she did present with complaints of weakness. She was found to be anemic more so than usual with a drop in her hemoglobin. Also evidence of acute kidney injury. She will be admitted I did discuss the case with Dr. Galeana. Patient denies any pain at this time she is just complaining of weakness. He does appear to be somewhat pale. (Steven Antonio) EKG Findings - EKG Comments: EKG Findings:: Normal sinus rhythm, ventricular rate 96, [place] int 128, QTc 477 <Brice Ching - Last Filed: 10/17/19 12:50> Medical Decision Making - Lab Data Result diagrams: 10/17/19 11:04 10/17/19 11:04 <Steven Antonio - Last Filed: 10/17/19 12:45> - Lab Data Result diagrams: 10/17/19 11:04 10/17/19 11:04 <Brice Ching - Last Filed: 10/17/19 12:50> - Medical Decision Making Patient was recently admitted to the hospital about one month ago for acute GI bleed and received one unit of PRBCs. Last chemotherapy was June 2019. 54-year-old female recently admitted for GI bleed presents for weakness. This is been ongoing for about 4 days. Patient was found to have acute on chronic anemia with a hemoglobin of 6.3 and a positive occult blood. She was given a unit of blood here in the emergency Department. Patient was also found to be in acute renal failure with mild hyperkalemia. Elevated troponin is likely secondary to renal failure. However this will be trended. Patient was given fluids here in the emergency department. She will be maintained on gentle maintenance fluids. She will be admitted for further management and consult to Dr. 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 (Brice Ching) - Lab Data Lab Results 12/25/19 12/25/19 12/25/19 Range/Units 11:04 11:04 11:04 WBC 8.3 (3.8-10.6) k/uL RBC 1.79 L (3.80-5.40) m/uL Hgb 6.3 L* D (11.4-16.0) gm/dL Hct 18.5 L* (34.0-46.0) % MCV 103.3 H D (80.0-100.0) fL MCH 34.8 (25.0-35.0) pg MCHC 33.7 (31.0-37.0) g/dL RDW 24.4 H (11.5-15.5) % Plt Count 13 L* D (150-450) k/uL Neutrophils % (Manual) 24 % Band Neutrophils % 1 % Lymphocytes % (Manual) 29 % Monocytes % (Manual) 46 % Metamyelocytes % 1 % Neutrophils # (Manual) 2.00 (1.3-7.7) k/uL Lymphocytes # (Manual) 2.41 (1.0-4.8) k/uL Monocytes # (Manual) 3.82 H (0-1.0) k/uL Metamyelocytes # (Man) 0.08 H (0) k/uL Nucleated RBCs 9 H (0-0) /100 WBC Differential Comment Manual Slide Review Performed Polychromasia Present Anisocytosis Marked Macrocytosis Marked A PT 11.2 (9.0-12.0) sec INR 1.1 (<1.2) APTT 23.3 (22.0-30.0) sec Sodium 136 L (137-145) mmol/L Potassium 5.7 H (3.5-5.1) mmol/L Chloride 104 (98-107) mmol/L Carbon Dioxide 20 L (22-30) mmol/L Anion Gap 12 mmol/L BUN 60 H (7-17) mg/dL Creatinine 3.72 H (0.52-1.04) mg/dL Est GFR (CKD-EPI)AfAm 14 (>60 ml/min/1.73 sqM) Est GFR (CKD-EPI)NonAf 12 (>60 ml/min/1.73 sqM) Glucose 128 H (74-99) mg/dL Calcium 7.7 L (8.4-10.2) mg/dL Magnesium 2.1 (1.6-2.3) mg/dL Total Bilirubin 2.1 H (0.2-1.3) mg/dL AST 32 (14-36) U/L ALT 14 (4-34) U/L Alkaline Phosphatase 91 (38-126) U/L Troponin I (0.000-0.034) ng/mL Total Protein 6.7 (6.3-8.2) g/dL Albumin 3.3 L (3.5-5.0) g/dL Stool Occult Blood (Negative) 10/17/19 10/17/19 Range/Units 11:04 11:33 WBC (3.8-10.6) k/uL RBC (3.80-5.40) m/uL Hgb (11.4-16.0) gm/dL Hct (34.0-46.0) % MCV (80.0-100.0) fL MCH (25.0-35.0) pg MCHC (31.0-37.0) g/dL RDW (11.5-15.5) % Plt Count (150-450) k/uL Neutrophils % (Manual) % Band Neutrophils % % Lymphocytes % (Manual) % Monocytes % (Manual) % Metamyelocytes % % Neutrophils # (Manual) (1.3-7.7) k/uL Lymphocytes # (Manual) (1.0-4.8) k/uL Monocytes # (Manual) (0-1.0) k/uL Metamyelocytes # (Man) (0) k/uL Nucleated RBCs (0-0) /100 WBC Differential Comment Manual Slide Review Polychromasia Anisocytosis Macrocytosis PT (9.0-12.0) sec INR (<1.2) APTT (22.0-30.0) sec Sodium (137-145) mmol/L Potassium (3.5-5.1) mmol/L Chloride (98-107) mmol/L Carbon Dioxide (22-30) mmol/L Anion Gap mmol/L BUN (7-17) mg/dL Creatinine (0.52-1.04) mg/dL Est GFR (CKD-EPI)AfAm (>60 ml/min/1.73 sqM) Est GFR (CKD-EPI)NonAf (>60 ml/min/1.73 sqM) Glucose (74-99) mg/dL Calcium (8.4-10.2) mg/dL Magnesium (1.6-2.3) mg/dL Total Bilirubin (0.2-1.3) mg/dL AST (14-36) U/L ALT (4-34) U/L Alkaline Phosphatase (38-126) U/L Troponin I 0.046 H* (0.000-0.034) ng/mL Total Protein (6.3-8.2) g/dL Albumin (3.5-5.0) g/dL Stool Occult Blood Positive H (Negative) Disposition <Steven Antonio - Last Filed: 10/17/19 12:45> Is patient prescribed a controlled substance at d/c from ED?: No Time of Disposition: 12:49 <Brice Ching - Last Filed: 10/17/19 12:50> Clinical Impression: Anemia, GI bleed, Acute renal failure Disposition: ADMITTED IP TO THIS HOSP Condition: Fair Referrals: Kat Fox MD [Primary Care Provider] - 1-2 days
[2019-10-17 11:46] LABS: Albumin 3.3 g/dL (3.5-5.0); Calcium 7.7 mg/dL (8.4-10.2); Magnesium 2.1 mg/dL (1.6-2.3); Potassium 5.7 mmol/L (3.5-5.1); Total Bilirubin 2.1 mg/dL (0.2-1.3); Total Protein 6.7 g/dL (6.3-8.2)
[2019-10-17 11:56] LABS: INR 1.1 (<1.2); Partial Thromboplastin Time 23.3 sec (22.0-30.0); Prothrombin Time 11.2 sec (9.0-12.0)
[2019-10-17 11:57] LABS: Anisocytosis Marked; MCH 34.8 pg (25.0-35.0); MCHC 33.7 g/dL (31.0-37.0); Macrocytosis Marked; Mean Platelet Volume 11.8; RBC 1.79 m/uL (3.80-5.40); RDW 24.4 % (11.5-15.5)
[2019-10-17 12:04] LABS: HCT 18.5 % (34.0-46.0); HGB 6.3 gm/dL (11.4-16.0); MCV 103.3 fL (80.0-100.0)
--- NOTE | 2019-10-17 12:05 | XR ---
EXAMINATION TYPE: XR chest 2V DATE OF EXAM: 10/17/2019 COMPARISON: NONE HISTORY: Chest pain TECHNIQUE: Frontal and lateral views of the chest are obtained. FINDINGS: There is no focal air space opacity. No evidence for pneumothorax. No pleural effusion. The cardiac silhouette size is within normal limits. The osseous structures are grossly intact. IMPRESSION: 1. No acute cardiopulmonary process.
[2019-10-17 12:36] LABS: Band Neutrophils % 1 %; Metamyelocytes % 1 %; Neutrophils % (M) 24 %; Nucleated Red Blood Cells 9 /100 WBC (0-0); Total Cells Counted 200
[2019-10-17 12:38] LABS: Lymphocytes # (M) 2.41 k/uL (1.0-4.8); Metamyelocytes # (M) 0.08 k/uL (0); Monocytes # (M) 3.82 k/uL (0-1.0); WBC 8.3 k/uL (3.8-10.6)
[2019-10-17 12:40] LABS: Polychromasia Present
[2019-10-17 12:42] LABS: Platelet Count 13 k/uL (150-450)
[2019-10-17] MEDS ORDERED: NALOXONE 0.4 MG/ML 1 ML VIAL IV PRN (12:44)
[2019-10-17] MEDS: SODIUM CHLORIDE 0.9% 1,000 ML IV SCH (13:20)
[2019-10-17 14:15] LABS: Amorphous Sediment,Urine Few /hpf; Appearance,Urine Turbid (Clear); Bacteria,Urine Moderate /hpf; Bilirubin,Urine Negative (Negative); Blood,Urine Small (Negative); Color,Urine Yellow; Glucose,Urine (UA) Negative (Negative); Ketones,Urine Negative (Negative); Leukocyte Esterase,Urine Large (Negative); Mucus,Urine Occasional /hpf; Nitrite,Urine Negative (Negative); PH, Urine 6.5 (5.0-8.0); Protein,Urine 1+ (Negative); RBC,Urine 7 /hpf (0-5); Specific Gravity,Urine 1.012 (1.001-1.035); Squamous Epithelial Cell,Urine 1 /hpf (0-4); Urobilinogen,Urine <2.0 mg/dL (<2.0); WBC,Urine 180 /hpf (0-5)
[2019-10-17 17:01] LABS: Glucose,Whole Blood 128 mg/dL (75-99)
--- NOTE | 2019-10-17 18:01 | P.CONS ---
History of Present Illness - Reason for Consult Consult date: 10/17/19 acute on chronic anemia Requesting physician: Chris Galeana - Chief Complaint Generalized Weakness - History of Present Illness Ms. Hernandez is a very pleasant 64-year-old female with newly diagnosed AMML in 03/2019, IDH positive, who has been on IDHIFA, who is here for generalized weakness. She was recently hospitalized in 08/2019 for bright red blood per rectum. Hemoglobin was in the eights and dropped to 6.7. She was transfused and discharged home with a hemoglobin stable in the eights. Presents again with generalized weakness. Recently seen in the office and IDHIFA was held due to anemia. Presents with a hemoglobin now of 6.3. Positive guaiac. Positive troponins. Chest x-ray negative. Her cancer history begins when she was seen on 04/10/19 for abnormal peripheral smear showing increased monocytes, metamyelocytes, myelocytes, and blasts. She was hospitalized at that time for progressive pain and swelling in her right lower extremity, bilateral shoulders, and neck for the prior 2 weeks and was being worked up by rheumatology. Bone marrow biopsy was done on 04/13/18 which revealed 10% myeloblasts, 16% on ascitic cells, most of which were immature, c onsistent with acute myeloid leukemia, favoring myelomonocytic leukemia. Normal cytogenetics. Fish positive for IDH 2, DNMT, and NPM 1. She followed up in the office on 05/04/19 and induction chemotherapy with 7+3 was recommended, which she received on . She did develop a GI bleed during that time that was treated supportively. Follow-up bone marrow biopsy on 06/08/19 showed remission with 2% blasts. She was evaluated at [facility] for BMT and was not a candidate due to poor performance status. Repeated admission on 07/10/19 due to weakness, CBC showed significant increased white count with blasts, and Hydrea was started. She was discharged to inpatient rehab followed by [facility]. IV H2 was positive on the recurrent disease, confirmed by fish, and she was started on IDHIFA on 08/05/19, and Hydrea was discontinued. She went home on 08/24/19 from subacute rehab, only to be readmitted on 09/09/19 for bright red blood per rectum. Hemoglobin during the hospital stay dropped to 6.7. She was managed conservatively at that time. [facility]charge when [facility]. Continue to be on IDHIFA after discharge up until about a week ago. Now again presents with normal WBC count, acute on chronic serum cytopenia with platelet count of 13 from 40s, and acute on chronic anemia with a hemoglobin of 6.3 from eights. Review of Systems All systems: negative Constitutional: Reports as per HPI Past Medical History Past Medical History: Cancer, Diabetes Mellitus, Hyperlipidemia, Hypertension Additional Past Medical History / Comment(s): AML diagnosed 03/2019. chemo last in 2018. new dx. of GI bleed. anemia History of Any Multi-Drug Resistant Organisms: None Reported Past Surgical History: No Surgical Hx Reported Additional Past Surgical History / Comment(s): picc line. bone marrow bx x2 Past Anesthesia/Blood Transfusion Reactions: No Reported Reaction Past Psychological History: No Psychological Hx Reported Smoking Status: Never smoker Past Alcohol Use History: None Reported Past Drug Use History: None Reported - Past Family History Mother Family Medical History: Cancer Sister(s) Family Medical History: Cancer Additional Family Medical History / Comment(s): breast CA Medications and Allergies Home Medications Medication Instructions Recorded Confirmed Type Acetaminophen-Codeine 300-30mg 1 tab PO Q6H PRN 05/07/19 10/17/19 History [Tylenol w/codeine #3] Loperamide [Imodium] 2 mg PO QID PRN #30 cap 05/25/19 10/17/19 Rx Potassium Chloride Oral Liquid 20 meq PO BID 06/29/19 10/17/19 History Citalopram Hydrobromide [CeleXA] 20 mg PO DAILY@0700 09/09/19 10/17/19 History Digoxin [Lanoxin] 125 mcg PO DAILY@0700 09/09/19 10/17/19 History Enasidenib Mesylate [Idhifa] 100 mg PO DIRECTED 09/09/19 10/17/19 History Metoprolol Tartrate [Lopressor] 50 mg PO TID 09/09/19 10/17/19 History Multivitamins, Thera [Multivitamin 1 tab PO DAILY 09/09/19 10/17/19 History (formulary)] Ondansetron [Zofran] 4 mg PO Q8H PRN 09/09/19 10/17/19 History Megestrol [Megace] 800 mg PO DAILY 10/17/19 10/17/19 History Nystatin 100,000 Unit/ml Susp 400,000 unit PO QID PRN 10/17/19 10/17/19 History [Mycostatin Oral Susp] Prochlorperazine [Compazine] 10 mg PO Q6H PRN 10/17/19 10/17/19 History Allergies Allergy/AdvReac Type Severity Reaction Status Date / Time latex Allergy Rash/Hives Verified 10/17/19 13:33 Physical Exam Vitals: Vital Signs Temp Pulse Resp BP Pulse Ox 10/17/19 16:13 97.4 F L 100 18 93/50 96 10/17/19 14:04 101 H 18 96/57 97 10/17/19 13:13 101 H 18 101/56 97 10/17/19 10:46 97.9 F 94 18 101/59 99 Intake and Output 10/17/19 10/17/19 10/17/19 06:59 14:59 22:59 Intake Total 0 Balance 0 Intake: Blood Product 0 Rc Irr Cpda1 Unit 0 [id number] Other: # Voids 0 Weight 77.111 kg Gen.: NAD HEENT: Mucosa moist, conjunctival pallor. Neck: Supple, no thyromegaly. Lymph: No cervical lymphadenopathy. Lungs: CTAB. Heart: Regular rate. Abdomen: Soft, nontender. MSK: No obvious deformities. Skin: No jaundice. Psych: Appropriate affect Neuro: Alert and oriented 3. Results CBC & Chem 7: 10/17/19 11:04 10/17/19 11:04 Labs: Abnormal Lab Results - Last 24 Hours (Table) 10/17/19 10/17/19 10/17/19 Range/Units 11:04 11:04 11:04 RBC 1.79 L (3.80-5.40) m/uL Hgb 6.3 L* D (11.4-16.0) gm/dL Hct 18.5 L* (34.0-46.0) % MCV 103.3 H D (80.0-100.0) fL RDW 24.4 H (11.5-15.5) % Plt Count 13 L* D (150-450) k/uL Monocytes # (Manual) 3.82 H (0-1.0) k/uL Metamyelocytes # (Man) 0.08 H (0) k/uL Nucleated RBCs 9 H (0-0) /100 WBC Macrocytosis Marked A Sodium 136 L (137-145) mmol/L Potassium 5.7 H (3.5-5.1) mmol/L Carbon Dioxide 20 L (22-30) mmol/L BUN 60 H (7-17) mg/dL Creatinine 3.72 H (0.52-1.04) mg/dL Glucose 128 H (74-99) mg/dL Calcium 7.7 L (8.4-10.2) mg/dL Total Bilirubin 2.1 H (0.2-1.3) mg/dL Troponin I 0.046 H* (0.000-0.034) ng/mL Albumin 3.3 L (3.5-5.0) g/dL Urine Appearance (Clear) Urine Protein (Negative) Urine Blood (Negative) Ur Leukocyte Esterase (Negative) Urine RBC (0-5) /hpf Urine WBC (0-5) /hpf Urine WBC Clumps (None) /hpf Amorphous Sediment (None) /hpf Urine Bacteria (None) /hpf Urine Mucus (None) /hpf Stool Occult Blood (Negative) Crossmatch 10/17/19 10/17/19 10/17/19 Range/Units 11:04 11:33 13:26 RBC (3.80-5.40) m/uL Hgb (11.4-16.0) gm/dL Hct (34.0-46.0) % MCV (80.0-100.0) fL RDW (11.5-15.5) % Plt Count (150-450) k/uL Monocytes # (Manual) (0-1.0) k/uL Metamyelocytes # (Man) (0) k/uL Nucleated RBCs (0-0) /100 WBC Macrocytosis Sodium (137-145) mmol/L Potassium (3.5-5.1) mmol/L Carbon Dioxide (22-30) mmol/L BUN (7-17) mg/dL Creatinine (0.52-1.04) mg/dL Glucose (74-99) mg/dL Calcium (8.4-10.2) mg/dL Total Bilirubin (0.2-1.3) mg/dL Troponin I (0.000-0.034) ng/mL Albumin (3.5-5.0) g/dL Urine Appearance Turbid H (Clear) Urine Protein 1+ H (Negative) Urine Blood Small H (Negative) Ur Leukocyte Esterase Large H (Negative) Urine RBC 7 H (0-5) /hpf Urine WBC 180 H (0-5) /hpf Urine WBC Clumps Many H (None) /hpf Amorphous Sediment Few H (None) /hpf Urine Bacteria Moderate H (None) /hpf Urine Mucus Occasional H (None) /hpf Stool Occult Blood Positive H (Negative) Crossmatch See Detail TSH normal from 06/2019 Elevated ferritin from 03/2019 Positive FOBT from this admission as well as prior admission in 08/2019 Total bilirubin has been elevated around 1.7-2 LDH elevated in 06/2019 Chest x-ray: report reviewed Assessment and Plan Assessment: 1. Acute on chronic anemia, acute decrease likely due to GI bleed, chronic anemia due to chemotherapy as well as leukemia 2. Acute on chronic thrombocytopenia, acute component consumptive from likely bleed, chronic due to chemotherapy and leukemia 3. 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 Elevated troponin 5. Hyperbilirubinemia 6. GI bleed Plan: Ms. Hernandez is a very pleasant 64-year-old female with multiple comorbidities including recent history of AMML status post recurrence after 7+3 induction, IDH2 positive, has been on IDHIFA, as well as recurrent admissions recently for GI bleed, here for weakness due to acute on chronic anemia. Her FOBT is positive. Likely she is having recurrent GI bleeds causing this acute on chronic anemia. Her baseline anemia, thrombocytopenia, and leukocytosis which is currently normal is from her underlying AMML. Acute on chronic thrombocytopenia is due to consumption from bleeding. Her IDHIFA has been on hold for the past week or so. Continue to hold this for now. This can contribute to her anemia however I do suspect the main component is due to bleed. Will also complete work up to rule out other possible contributing etiology, including B12, folate, iron panel, and hemolysis work up. Supportive transfusion to maintain Hgb >7 and plt >15. GI work up. Discussed with pt and family at bedside and they are agreeable. All questions answered.
[2019-10-17] MEDS ORDERED: PROCHLORPERAZINE 10 MG TAB PO PRN (19:48)
[2019-10-17] MEDS ORDERED: ONDANSETRON 4 MG TAB PO PRN (19:48)
[2019-10-17] MEDS ORDERED: NYSTATIN 100,000 UNIT/ML SUSP 500,000 UNIT/5 ML CUP PO PRN ×2 (19:48→20:03)
--- NOTE | 2019-10-17 19:51 | P.HPIM ---
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 Patient also has a known history of hypertension, hyperlipidemia, and diabetes mellitus. Past Medical History Past Medical History: Cancer, Diabetes Mellitus, Hyperlipidemia, Hypertension Additional Past Medical History / Comment(s): AML diagnosed 03/2019. chemo last in 2018. new dx. of GI bleed. anemia History of Any Multi-Drug Resistant Organisms: None Reported Past Surgical History: No Surgical Hx Reported Additional Past Surgical History / Comment(s): picc line. bone marrow bx x2 Past Anesthesia/Blood Transfusion Reactions: No Reported Reaction Past Psychological History: No Psychological Hx Reported Smoking Status: Never smoker Past Alcohol Use History: None Reported Past Drug Use History: None Reported - Past Family History Mother Family Medical History: Cancer Sister(s) Family Medical History: Cancer Additional Family Medical History / Comment(s): breast CA Medications and Allergies Home Medications Medication Instructions Recorded Confirmed Type Acetaminophen-Codeine 300-30mg 1 tab PO Q6H PRN 05/07/19 10/17/19 History [Tylenol w/codeine #3] Loperamide [Imodium] 2 mg PO QID PRN #30 cap 05/25/19 10/17/19 Rx Potassium Chloride Oral Liquid 20 meq PO BID 06/29/19 10/17/19 History Citalopram Hydrobromide [CeleXA] 20 mg PO DAILY@0700 09/09/19 10/17/19 History Digoxin [Lanoxin] 125 mcg PO DAILY@0700 09/09/19 10/17/19 History Enasidenib Mesylate [Idhifa] 100 mg PO DIRECTED 09/09/19 10/17/19 History Metoprolol Tartrate [Lopressor] 50 mg PO TID 09/09/19 10/17/19 History Multivitamins, Thera [Multivitamin 1 tab PO DAILY 09/09/19 10/17/19 History (formulary)] Ondansetron [Zofran] 4 mg PO Q8H PRN 09/09/19 10/17/19 History Megestrol [Megace] 800 mg PO DAILY 10/17/19 10/17/19 History Nystatin 100,000 Unit/ml Susp 400,000 unit PO QID PRN 10/17/19 10/17/19 History [Mycostatin Oral Susp] Prochlorperazine [Compazine] 10 mg PO Q6H PRN 10/17/19 10/17/19 History Allergies Allergy/AdvReac Type Severity Reaction Status Date / Time latex Allergy Rash/Hives Verified 10/17/19 13:33 Physical Exam Vitals: Vital Signs Temp Pulse Pulse Resp BP BP Pulse Ox 10/17/19 19:05 97.3 F L 106 H 18 94/62 97 10/17/19 18:07 97.4 F L 108 H 18 94/64 97 10/17/19 16:53 97.4 F L 105 H 18 85/49 98 10/17/19 16:29 97.3 F L 113 H 18 100/49 98 10/17/19 16:23 97.3 F L 113 H 18 96/48 97 10/17/19 16:18 97.3 F L 96 18 97/55 96 10/17/19 16:13 97.4 F L 100 18 93/50 96 10/17/19 14:04 101 H 18 96/57 97 10/17/19 13:13 101 H 18 101/56 97 10/17/19 10:46 97.9 F 94 18 101/59 99 Intake and Output 10/17/19 10/17/19 10/17/19 06:59 14:59 22:59 Intake Total 610 Balance 610 Intake: Oral 360 Blood Product 250 Rc Irr Cpda1 Unit 250 [id number] Other: Voiding Method Toilet Incontinent # Voids 0 Weight 77.111 kg 77.111 kg In general patient is alert and oriented 3 in no apparent distress HEENT head normocephalic and atraumatic Neck is supple no JVD no goiter no lymphadenopathy Chest exam reveals a few scattered rhonchi no wheezing Cardiac exam reveals regular heart sounds no gallops no murmurs Abdomen is soft nontender no organomegaly Extremity exam reveals no edema no cyanosis or clubbing Neurological examination reveals no gross focal deficit Results CBC & Chem 7: 10/17/19 11:04 10/17/19 11:04 Labs: Abnormal Lab Results - Last 24 Hours (Table) 10/17/19 10/17/19 10/17/19 Range/Units 11:04 11:04 11:04 RBC 1.79 L (3.80-5.40) m/uL Hgb 6.3 L* D (11.4-16.0) gm/dL Hct 18.5 L* (34.0-46.0) % MCV 103.3 H D (80.0-100.0) fL RDW 24.4 H (11.5-15.5) % Plt Count 13 L* D (150-450) k/uL Monocytes # (Manual) 3.82 H (0-1.0) k/uL Metamyelocytes # (Man) 0.08 H (0) k/uL Nucleated RBCs 9 H (0-0) /100 WBC Macrocytosis Marked A Sodium 136 L (137-145) mmol/L Potassium 5.7 H (3.5-5.1) mmol/L Carbon Dioxide 20 L (22-30) mmol/L BUN 60 H (7-17) mg/dL Creatinine 3.72 H (0.52-1.04) mg/dL Glucose 128 H (74-99) mg/dL POC Glucose (mg/dL) (75-99) mg/dL Calcium 7.7 L (8.4-10.2) mg/dL Total Bilirubin 2.1 H (0.2-1.3) mg/dL Troponin I 0.046 H* (0.000-0.034) ng/mL Albumin 3.3 L (3.5-5.0) g/dL Urine Appearance (Clear) Urine Protein (Negative) Urine Blood (Negative) Ur Leukocyte Esterase (Negative) Urine RBC (0-5) /hpf Urine WBC (0-5) /hpf Urine WBC Clumps (None) /hpf Amorphous Sediment (None) /hpf Urine Bacteria (None) /hpf Urine Mucus (None) /hpf Stool Occult Blood (Negative) Crossmatch 10/17/19 10/17/19 10/17/19 Range/Units 11:04 11:33 13:26 RBC (3.80-5.40) m/uL Hgb (11.4-16.0) gm/dL Hct (34.0-46.0) % MCV (80.0-100.0) fL RDW (11.5-15.5) % Plt Count (150-450) k/uL Monocytes # (Manual) (0-1.0) k/uL Metamyelocytes # (Man) (0) k/uL Nucleated RBCs (0-0) /100 WBC Macrocytosis Sodium (137-145) mmol/L Potassium (3.5-5.1) mmol/L Carbon Dioxide (22-30) mmol/L BUN (7-17) mg/dL Creatinine (0.52-1.04) mg/dL Glucose (74-99) mg/dL POC Glucose (mg/dL) (75-99) mg/dL Calcium (8.4-10.2) mg/dL Total Bilirubin (0.2-1.3) mg/dL Troponin I (0.000-0.034) ng/mL Albumin (3.5-5.0) g/dL Urine Appearance Turbid H (Clear) Urine Protein 1+ H (Negative) Urine Blood Small H (Negative) Ur Leukocyte Esterase Large H (Negative) Urine RBC 7 H (0-5) /hpf Urine WBC 180 H (0-5) /hpf Urine WBC Clumps Many H (None) /hpf Amorphous Sediment Few H (None) /hpf Urine Bacteria Moderate H (None) /hpf Urine Mucus Occasional H (None) /hpf Stool Occult Blood Positive H (Negative) Crossmatch See Detail 10/17/19 Range/Units 16:34 RBC (3.80-5.40) m/uL Hgb (11.4-16.0) gm/dL Hct (34.0-46.0) % MCV (80.0-100.0) fL RDW (11.5-15.5) % Plt Count (150-450) k/uL Monocytes # (Manual) (0-1.0) k/uL Metamyelocytes # (Man) (0) k/uL Nucleated RBCs (0-0) /100 WBC Macrocytosis Sodium (137-145) mmol/L Potassium (3.5-5.1) mmol/L Carbon Dioxide (22-30) mmol/L BUN (7-17) mg/dL Creatinine (0.52-1.04) mg/dL Glucose (74-99) mg/dL POC Glucose (mg/dL) 128 H (75-99) mg/dL Calcium (8.4-10.2) mg/dL Total Bilirubin (0.2-1.3) mg/dL Troponin I (0.000-0.034) ng/mL Albumin (3.5-5.0) g/dL Urine Appearance (Clear) Urine Protein (Negative) Urine Blood (Negative) Ur Leukocyte Esterase (Negative) Urine RBC (0-5) /hpf Urine WBC (0-5) /hpf Urine WBC Clumps (None) /hpf Amorphous Sediment (None) /hpf Urine Bacteria (None) /hpf Urine Mucus (None) /hpf Stool Occult Blood (Negative) Crossmatch Thrombosis Risk Factor Assmnt - Choose All That Apply Any of the Below Risk Factors Present?: Yes Each Factor Represents 1 point: Obesity (BMI >25) Other Risk Factors: Yes Each Risk Factor Represents 2 Points: Age 61-74 years Other congenital or acquired thrombophilia - If yes, enter type in comment: No Thrombosis Risk Factor Assessment Total Risk Factor Score: 3 Thrombosis Risk Factor Assessment Level: Moderate Risk Assessment and Plan Plan: #1 generalized weakness likely related to anemia, 1 unit of red blood cell transfusion was ordered #2 recent admission with gastrointestinal bleeding, at this time no mara blood from the rectum however stool Hemoccult was positive #3 underlying history of AML last chemotherapy in June 2019 oncology consultation was requested. #4 elevated BUN and creatinine at 60 and 3.72 last creatinine on September 13 was 0.82 #5 elevated troponin level patient denies any chest pain, this could be related to abnormal kidney function, will monitor and repeat troponin level #6 evidence of UTI, will obtain urine culture and start Rocephin #7 underlying history of hypertension will resume metoprolol #8 underlying history of hyperlipidemia #9 underlying history of diabetes mellitus At this time patient was started on IV fluid, IV Rocephin, 1 unit of red blood cell transfusion was ordered Consultation for oncology and nephrology was initiated Repeat troponin level was ordered Urine culture was ordered Home medication resumed Will follow in a.m.
[2019-10-17 20:29] LABS: Glucose,Whole Blood 133 mg/dL (75-99)
[2019-10-17 21:21] LABS: Reticulocyte % 5.9 % (0.5-2.0)
[2019-10-17] MEDS: METOPROLOL TARTRATE 50 MG TAB PO SCH (23:08)
[2019-10-18] MEDS: CITALOPRAM HYDROBROMIDE 20 MG TAB PO SCH (06:29)
[2019-10-18] MEDS: DIGOXIN 125 MCG TAB PO SCH (06:29)
[2019-10-18] MEDS: SODIUM CHLORIDE 0.9% 1,000 ML IV SCH ×2 (06:30→18:52)
[2019-10-18 06:43] LABS: Anisocytosis Marked; Hypochromasia Slight; MCH 35.4 pg (25.0-35.0); MCV 101.2 fL (80.0-100.0); Macrocytosis Marked; Mean Platelet Volume 16.1; RBC 1.74 m/uL (3.80-5.40)
[2019-10-18 06:44] LABS: Glucose,Whole Blood 117 mg/dL (75-99)
[2019-10-18 06:52] LABS: HGB 6.2 gm/dL (11.4-16.0)
[2019-10-18 06:53] LABS: HCT 17.6 % (34.0-46.0)
[2019-10-18 07:07] LABS: Albumin 2.6 g/dL (3.5-5.0); Calcium 6.7 mg/dL (8.4-10.2); Potassium 3.9 mmol/L (3.5-5.1); Total Bilirubin 1.8 mg/dL (0.2-1.3); Total Protein 5.5 g/dL (6.3-8.2)
[2019-10-18 07:41] LABS: Band Neutrophils % 4 %; Eosinophils # (M) 0.06 k/uL (0-0.7); Lymphocytes # (M) 0.64 k/uL (1.0-4.8); Metamyelocytes # (M) 0.03 k/uL (0); Metamyelocytes % 1 %; Monocytes # (M) 1.36 k/uL (0-1.0); Myelocytes # (M) 0.06 k/uL (0); Myelocytes % 2 %; Neutrophils % (M) 24 %; Nucleated Red Blood Cells 22 /100 WBC (0-0); Polychromasia Present; Total Cells Counted 200; WBC 2.9 k/uL (3.8-10.6)
[2019-10-18 07:45] LABS: Poikilocytosis (M) Present
[2019-10-18] MEDS: MEGESTROL 400 MG/10 ML CUP PO SCH (08:28)
[2019-10-18] MEDS: MULTIVITAMINS, THERA 1 EACH TAB PO SCH (08:29)
--- NOTE | 2019-10-18 10:45 | CONS ---
CONSULTATION REASON FOR CONSULT: Renal failure. HISTORY OF PRESENT ILLNESS: The patient is a 64-year-old female with history of AML diagnosed in March of 2019 with last chemotherapy in June. The patient came into the hospital with complaints of weakness. She denied any obvious bleeding, but she was noted to have a hemoglobin of 6.3. Her platelet count was 6000. She has positive stool for occult blood. The patient denies any prior history of kidney diseases. Serum creatinine was 3.09 today. Yesterday it was 3.7. Review of previous labs shows a serum creatinine 0.82 on 09/13/2019. Blood pressure has been low with systolic in the 90s and low 100s systolic. At home patient was not on any nonsteroidal anti-inflammatory agents or EMEKA inhibitors. Patient has had good urine output; however, she is incontinent. PAST MEDICAL HISTORY: Significant for AML, hyperlipidemia, hypertension, type 2 diabetes. SOCIAL HISTORY: Negative for smoking, drug abuse or alcohol abuse. PAST SURGICAL HISTORY: PICC line placement, bone marrow biopsies. MEDICATIONS: Medications at home prior to admission included Imodium, Celexa, digoxin, Lopressor, multivitamin, Zofran, Megace, Compazine, Idhifa and last chemotherapy in June of 2019. ALLERGIES: Allergies show LATEX, rash and hives. REVIEW OF SYSTEMS: As per HPI. Other systems negative. PHYSICAL EXAMINATION: On examination, patient is comfortable, awake, not in any acute distress. Blood pressure 92/53, heart rate 83 per minute. She is afebrile. EXAMINATION OF THE HEART: S1, S2. EXAMINATION OF THE LUNGS: Bilateral breath sounds are heard. ABDOMEN: Soft, nontender. Examination of lower extremities shows wasting of the muscles noted bilaterally with weakness; however, patient is able to move all 4 extremities. No edema is noted. SPEEDER TENDER EXAM: Grossly intact. LABS: Labs show hemoglobin 6.2, white cell count 2.9, platelet count 6000. Sodium 138, potassium 3.9, chloride 108, BUN 47, creatinine 3.09. Troponin 0.053. ASSESSMENT: 1. Acute kidney injury secondary to hypovolemic hypotension, currently improved. Continue with IV fluids. Avoid any nephrotoxic agents. UA shows significant pyuria. Urine cultures currently pending. 2. History of acute myeloid leukemia diagnosed in March of 2019, status post chemotherapy, last session in June of 2019. 3. Pancytopenia, most likely related to chemotherapy, being followed by Hematology. 4. Elevated troponins, being monitored. Cardiology on consult. 5. Gastrointestinal bleed, being transfused packed RBCs. PLAN: Continue IV fluids. Transfuse packed RBCs. Repeat labs in a.m. Follow up on urine cultures. Maintain on empiric antibiotics. Thank you for this consultation. Will continue to follow the patient with you during her hospitalization. MMODL / FERNANDAN: [id number] /
--- NOTE | 2019-10-18 11:02 | P.PN ---
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 Patient also has a known history of hypertension, hyperlipidemia, and diabetes mellitus. On 10/18/2019 patient's alert and oriented resting comfortably in bed. Discussed case with oncology services. Patient got 1 unit PRBCs yesterday 1 unit of platelets ordered for today per oncology. Patient started on Rocephin for UTI. Infectious disease services have been consulted. Creatinine improving to 3.09 bun 47. Nephrology services are following. At this time patient denies chest pain or shortness of breath. Patient denies nausea vomiting diarrhea. Patient denies any urinary burning or frequency Objective - Vital Signs Vital signs: Vital Signs Temp 97.6 F 10/18/19 08:00 Pulse 83 10/18/19 08:00 Resp 20 10/18/19 08:00 BP 92/53 10/18/19 08:00 Pulse Ox 96 10/18/19 08:00 Intake & Output 10/17/19 10/18/19 10/18/19 18:59 06:59 18:59 Intake Total 360 250 140 Balance 360 250 140 Weight 77.111 kg 73.5 kg Intake: Oral 360 140 Blood Product 0 250 Rc Irr Cpda1 Unit 0 250 [id number] Other: Voiding Method Toilet Toilet Toilet Incontinent Incontinent Incontinent # Voids 0 1 # Bowel Movements 1 - Exam In general patient is alert and oriented 3 in no apparent distress HEENT head normocephalic and atraumatic Neck is supple no JVD no goiter no lymphadenopathy Chest exam reveals a few scattered rhonchi no wheezing Cardiac exam reveals regular heart sounds no gallops no murmurs Abdomen is soft nontender no organomegaly Extremity exam reveals no edema no cyanosis or clubbing Neurological examination reveals no gross focal deficit - Labs CBC & Chem 7: 10/18/19 06:18 10/18/19 06:18 Labs: Abnormal Lab Results - Last 24 Hours (Table) 10/17/19 10/17/19 10/17/19 Range/Units 11:04 11:04 11:04 WBC (3.8-10.6) k/uL RBC 1.79 L (3.80-5.40) m/uL Hgb 6.3 L* D (11.4-16.0) gm/dL Hct 18.5 L* (34.0-46.0) % MCV 103.3 H D (80.0-100.0) fL MCH (25.0-35.0) pg RDW 24.4 H (11.5-15.5) % Plt Count 13 L* D (150-450) k/uL Neutrophils # (Manual) (1.3-7.7) k/uL Lymphocytes # (Manual) (1.0-4.8) k/uL Monocytes # (Manual) 3.82 H (0-1.0) k/uL Metamyelocytes # (Man) 0.08 H (0) k/uL Myelocytes # (Manual) (0) k/uL Nucleated RBCs 9 H (0-0) /100 WBC Macrocytosis Marked A Retic Count (0.5-2.0) % Sodium 136 L (137-145) mmol/L Potassium 5.7 H (3.5-5.1) mmol/L Chloride (98-107) mmol/L Carbon Dioxide 20 L (22-30) mmol/L BUN 60 H (7-17) mg/dL Creatinine 3.72 H (0.52-1.04) mg/dL Glucose 128 H (74-99) mg/dL POC Glucose (mg/dL) (75-99) mg/dL Calcium 7.7 L (8.4-10.2) mg/dL Total Bilirubin 2.1 H (0.2-1.3) mg/dL Lactate Dehydrogenase (313-618) U/L Troponin I 0.046 H* (0.000-0.034) ng/mL Total Protein (6.3-8.2) g/dL Albumin 3.3 L (3.5-5.0) g/dL Urine Appearance (Clear) Urine Protein (Negative) Urine Blood (Negative) Ur Leukocyte Esterase (Negative) Urine RBC (0-5) /hpf Urine WBC (0-5) /hpf Urine WBC Clumps (None) /hpf Amorphous Sediment (None) /hpf Urine Bacteria (None) /hpf Urine Mucus (None) /hpf Stool Occult Blood (Negative) Crossmatch 10/17/19 10/17/19 10/17/19 Range/Units 11:04 11:04 11:04 WBC (3.8-10.6) k/uL RBC (3.80-5.40) m/uL Hgb (11.4-16.0) gm/dL Hct (34.0-46.0) % MCV (80.0-100.0) fL MCH (25.0-35.0) pg RDW (11.5-15.5) % Plt Count (150-450) k/uL Neutrophils # (Manual) (1.3-7.7) k/uL Lymphocytes # (Manual) (1.0-4.8) k/uL Monocytes # (Manual) (0-1.0) k/uL Metamyelocytes # (Man) (0) k/uL Myelocytes # (Manual) (0) k/uL Nucleated RBCs (0-0) /100 WBC Macrocytosis Retic Count 5.9 H (0.5-2.0) % Sodium (137-145) mmol/L Potassium (3.5-5.1) mmol/L Chloride (98-107) mmol/L Carbon Dioxide (22-30) mmol/L BUN (7-17) mg/dL Creatinine (0.52-1.04) mg/dL Glucose (74-99) mg/dL POC Glucose (mg/dL) (75-99) mg/dL Calcium (8.4-10.2) mg/dL Total Bilirubin (0.2-1.3) mg/dL Lactate Dehydrogenase 954 H (313-618) U/L Troponin I (0.000-0.034) ng/mL Total Protein (6.3-8.2) g/dL Albumin (3.5-5.0) g/dL Urine Appearance (Clear) Urine Protein (Negative) Urine Blood (Negative) Ur Leukocyte Esterase (Negative) Urine RBC (0-5) /hpf Urine WBC (0-5) /hpf Urine WBC Clumps (None) /hpf Amorphous Sediment (None) /hpf Urine Bacteria (None) /hpf Urine Mucus (None) /hpf Stool Occult Blood (Negative) Crossmatch See Detail 10/17/19 10/17/19 10/17/19 Range/Units 11:33 13:26 16:34 WBC (3.8-10.6) k/uL RBC (3.80-5.40) m/uL Hgb (11.4-16.0) gm/dL Hct (34.0-46.0) % MCV (80.0-100.0) fL MCH (25.0-35.0) pg RDW (11.5-15.5) % Plt Count (150-450) k/uL Neutrophils # (Manual) (1.3-7.7) k/uL Lymphocytes # (Manual) (1.0-4.8) k/uL Monocytes # (Manual) (0-1.0) k/uL Metamyelocytes # (Man) (0) k/uL Myelocytes # (Manual) (0) k/uL Nucleated RBCs (0-0) /100 WBC Macrocytosis Retic Count (0.5-2.0) % Sodium (137-145) mmol/L Potassium (3.5-5.1) mmol/L Chloride (98-107) mmol/L Carbon Dioxide (22-30) mmol/L BUN (7-17) mg/dL Creatinine (0.52-1.04) mg/dL Glucose (74-99) mg/dL POC Glucose (mg/dL) 128 H (75-99) mg/dL Calcium (8.4-10.2) mg/dL Total Bilirubin (0.2-1.3) mg/dL Lactate Dehydrogenase (313-618) U/L Troponin I (0.000-0.034) ng/mL Total Protein (6.3-8.2) g/dL Albumin (3.5-5.0) g/dL Urine Appearance Turbid H (Clear) Urine Protein 1+ H (Negative) Urine Blood Small H (Negative) Ur Leukocyte Esterase Large H (Negative) Urine RBC 7 H (0-5) /hpf Urine WBC 180 H (0-5) /hpf Urine WBC Clumps Many H (None) /hpf Amorphous Sediment Few H (None) /hpf Urine Bacteria Moderate H (None) /hpf Urine Mucus Occasional H (None) /hpf Stool Occult Blood Positive H (Negative) Crossmatch 10/17/19 10/17/19 10/18/19 Range/Units 20:02 20:27 06:18 WBC 2.9 L (3.8-10.6) k/uL RBC 1.74 L (3.80-5.40) m/uL Hgb 6.2 L* (11.4-16.0) gm/dL Hct 17.6 L* (34.0-46.0) % MCV 101.2 H (80.0-100.0) fL MCH 35.4 H (25.0-35.0) pg RDW 24.0 H (11.5-15.5) % Plt Count 6 L* D (150-450) k/uL Neutrophils # (Manual) 0.80 L (1.3-7.7) k/uL Lymphocytes # (Manual) 0.64 L (1.0-4.8) k/uL Monocytes # (Manual) 1.36 H (0-1.0) k/uL Metamyelocytes # (Man) 0.03 H (0) k/uL Myelocytes # (Manual) 0.06 H (0) k/uL Nucleated RBCs 22 H (0-0) /100 WBC Macrocytosis Marked A Retic Count (0.5-2.0) % Sodium (137-145) mmol/L Potassium (3.5-5.1) mmol/L Chloride (98-107) mmol/L Carbon Dioxide (22-30) mmol/L BUN (7-17) mg/dL Creatinine (0.52-1.04) mg/dL Glucose (74-99) mg/dL POC Glucose (mg/dL) 133 H (75-99) mg/dL Calcium (8.4-10.2) mg/dL Total Bilirubin (0.2-1.3) mg/dL Lactate Dehydrogenase (313-618) U/L Troponin I 0.053 H* (0.000-0.034) ng/mL Total Protein (6.3-8.2) g/dL Albumin (3.5-5.0) g/dL Urine Appearance (Clear) Urine Protein (Negative) Urine Blood (Negative) Ur Leukocyte Esterase (Negative) Urine RBC (0-5) /hpf Urine WBC (0-5) /hpf Urine WBC Clumps (None) /hpf Amorphous Sediment (None) /hpf Urine Bacteria (None) /hpf Urine Mucus (None) /hpf Stool Occult Blood (Negative) Crossmatch 10/18/19 10/18/19 Range/Units 06:18 06:43 WBC (3.8-10.6) k/uL RBC (3.80-5.40) m/uL Hgb (11.4-16.0) gm/dL Hct (34.0-46.0) % MCV (80.0-100.0) fL MCH (25.0-35.0) pg RDW (11.5-15.5) % Plt Count (150-450) k/uL Neutrophils # (Manual) (1.3-7.7) k/uL Lymphocytes # (Manual) (1.0-4.8) k/uL Monocytes # (Manual) (0-1.0) k/uL Metamyelocytes # (Man) (0) k/uL Myelocytes # (Manual) (0) k/uL Nucleated RBCs (0-0) /100 WBC Macrocytosis Retic Count (0.5-2.0) % Sodium (137-145) mmol/L Potassium (3.5-5.1) mmol/L Chloride 108 H (98-107) mmol/L Carbon Dioxide 20 L (22-30) mmol/L BUN 47 H (7-17) mg/dL Creatinine 3.09 H (0.52-1.04) mg/dL Glucose 108 H (74-99) mg/dL POC Glucose (mg/dL) 117 H (75-99) mg/dL Calcium 6.7 L (8.4-10.2) mg/dL Total Bilirubin 1.8 H (0.2-1.3) mg/dL Lactate Dehydrogenase (313-618) U/L Troponin I (0.000-0.034) ng/mL Total Protein 5.5 L (6.3-8.2) g/dL Albumin 2.6 L (3.5-5.0) g/dL Urine Appearance (Clear) Urine Protein (Negative) Urine Blood (Negative) Ur Leukocyte Esterase (Negative) Urine RBC (0-5) /hpf Urine WBC (0-5) /hpf Urine WBC Clumps (None) /hpf Amorphous Sediment (None) /hpf Urine Bacteria (None) /hpf Urine Mucus (None) /hpf Stool Occult Blood (Negative) Crossmatch Microbiology - Last 24 Hours (Table) 10/17/19 13:26 Urine Culture - Preliminary Urine,Voided Assessment and Plan Assessment: #1 generalized weakness likely related to acute on chronic anemia. Oncology services are following. Patient received 1 unit PRBCs. 1 unit of platelets have been ordered per oncology service #2 recent admission with gastrointestinal bleeding, at this time no mara blood from the rectum however stool Hemoccult was positive #3 underlying history of AML last chemotherapy in June 2019 oncology consultation was requested. #4 acute kidney injury secondary to hypovolemic hypotension. elevated BUN and creatinine at 60 and 3.72 last creatinine on September 13 was 0.82 . Creatinine improving to 3.09 and bun 47. nephrology services are following #5 elevated troponin level patient denies any chest pain, this could be related to abnormal kidney function, will monitor and repeat troponin level #6 evidence of UTI, will obtain urine culture and start Rocephin. Culture ordered. Infectious disease consulted #7 underlying history of hypertension will resume metoprolol #8 underlying history of hyperlipidemia #9 underlying history of diabetes mellitus. #10. Acute on chronic thrombocytopenia secondary to chemotherapy and leukemia. 1 unit of platelets has been ordered per oncology services DVT prophylaxis SCDs. GI prophylaxis Pepcid Oncology and nephrology services are following. Infectious disease consulted for UTI Urine culture ordered. Normal saline at 75 1 unit PRBCs transfused. 1 unit of platelets ordered per oncology PT OT consulted I performed an examination of the patient and discussed their management with the Nurse Practitioner. I have reviewed the Nurse Practitioner's notes and agree with the documented findings and plan of care
[2019-10-18] MEDS: METOPROLOL TARTRATE 50 MG TAB PO SCH ×3 (11:38→23:13)
[2019-10-18 12:03] LABS: Glucose,Whole Blood 114 mg/dL (75-99)
[2019-10-18 12:09] LABS: % Iron Saturation 88.46 (12.00-45.00)
[2019-10-18 13:22] LABS: Ferritin 3092.8 ng/mL (10.0-291.0); Folate, Serum 19.6 ng/mL
[2019-10-18 16:57] LABS: Glucose,Whole Blood 101 mg/dL (75-99)
[2019-10-18] MEDS ORDERED: RASBURICASE 6 MG in SODIUM CHLORIDE 0.9% 46 ML IV STA (17:23)
--- NOTE | 2019-10-18 17:34 | P.PN ---
Subjective Progress Note Date: 10/18/19 Principal diagnosis: AML, on oral treatment, pancytopenia In follow-up today patient continues to lay in bed, does not move around much, she denies fevers, nausea, she is tolerating liquids, she does not know what medications she is on, she thinks that she was walking when she was at home, she denies any pain, she is not sure if she had blood in the urine or stool Objective - Vital Signs Vital signs: Vital Signs Temp 97.7 F 10/18/19 15:16 Pulse 90 10/18/19 15:16 Resp 20 10/18/19 15:16 BP 102/57 10/18/19 15:16 Pulse Ox 98 10/18/19 15:16 Intake & Output 10/17/19 10/18/19 10/18/19 18:59 06:59 18:59 Intake Total 250 407 6464 Output Total 1 Balance 255 019 5442 Weight 77.111 kg 73.5 kg 73.5 kg Intake: Intake, IV Titration 500 Amount Sodium Chloride 0.9% 1, 450 000 ml @ 75 mls/hr IV . [id number] [facility] Rx#:[id number] cefTRIAXone 1 gm In 50 Sodium Chloride 0.9% 50 ml @ 100 mls/hr IVPB Q24HR [facility] Rx#:[id number] Oral 360 380 Blood Product 0 250 659 Platelet Irr Pheresis 309 Acda1 Unit [id number] Rc Irr Cpda1 Unit 0 250 [id number] Output: Urine/Stool Mix 1 Other: Voiding Method Toilet Toilet Toilet Incontinent Incontinent Incontinent # Voids 0 1 # Bowel Movements 1 - Constitutional General appearance: Present: average body habitus, cooperative, no acute distress - EENT EENT Comment(s): dry mouth Eyes: Present: EOMI, scleral icterus ENT: Present: hearing grossly normal - Respiratory Respiratory: bilateral: CTA - Cardiovascular Rhythm: regular Heart sounds: normal: S1, S2 Abnormal Heart Sounds: Present: systolic murmur - Peripheral edema leg Peripheral Edema: bilateral: None - Gastrointestinal General gastrointestinal: Present: normal bowel sounds, soft - Integumentary Integumentary: Present: normal turgor - Neurologic Neurologic: Present: CNII-XII intact - Musculoskeletal Musculoskeletal: Present: generalized weakness - Psychiatric Psychiatric: Present: A&O x's 3. Absent: intact judgment & insight - Labs CBC & Chem 7: 10/18/19 06:18 10/18/19 06:18 Labs: Abnormal Lab Results - Last 24 Hours (Table) 10/17/19 10/17/19 10/17/19 Range/Units 11:04 11:04 11:04 WBC (3.8-10.6) k/uL RBC (3.80-5.40) m/uL Hgb (11.4-16.0) gm/dL Hct (34.0-46.0) % MCV (80.0-100.0) fL MCH (25.0-35.0) pg RDW (11.5-15.5) % Plt Count (150-450) k/uL Neutrophils # (Manual) (1.3-7.7) k/uL Lymphocytes # (Manual) (1.0-4.8) k/uL Monocytes # (Manual) (0-1.0) k/uL Metamyelocytes # (Man) (0) k/uL Myelocytes # (Manual) (0) k/uL Nucleated RBCs (0-0) /100 WBC Macrocytosis Retic Count 5.9 H (0.5-2.0) % Chloride (98-107) mmol/L Carbon Dioxide (22-30) mmol/L BUN (7-17) mg/dL Creatinine (0.52-1.04) mg/dL Glucose (74-99) mg/dL POC Glucose (mg/dL) (75-99) mg/dL Calcium (8.4-10.2) mg/dL Iron 184 H (50-170) ug/dL TIBC 208 L (228-460) ug/dL % Saturation 88.46 H (12.00-45.00) Ferritin 3092.8 H (10.0-291.0) ng/mL Total Bilirubin (0.2-1.3) mg/dL Lactate Dehydrogenase 954 H (313-618) U/L Troponin I (0.000-0.034) ng/mL Total Protein (6.3-8.2) g/dL Albumin (3.5-5.0) g/dL Crossmatch See Detail 10/17/19 10/17/19 10/17/19 Range/Units 16:34 20:02 20:27 WBC (3.8-10.6) k/uL RBC (3.80-5.40) m/uL Hgb (11.4-16.0) gm/dL Hct (34.0-46.0) % MCV (80.0-100.0) fL MCH (25.0-35.0) pg RDW (11.5-15.5) % Plt Count (150-450) k/uL Neutrophils # (Manual) (1.3-7.7) k/uL Lymphocytes # (Manual) (1.0-4.8) k/uL Monocytes # (Manual) (0-1.0) k/uL Metamyelocytes # (Man) (0) k/uL Myelocytes # (Manual) (0) k/uL Nucleated RBCs (0-0) /100 WBC Macrocytosis Retic Count (0.5-2.0) % Chloride (98-107) mmol/L Carbon Dioxide (22-30) mmol/L BUN (7-17) mg/dL Creatinine (0.52-1.04) mg/dL Glucose (74-99) mg/dL POC Glucose (mg/dL) 128 H 133 H (75-99) mg/dL Calcium (8.4-10.2) mg/dL Iron (50-170) ug/dL TIBC (228-460) ug/dL % Saturation (12.00-45.00) Ferritin (10.0-291.0) ng/mL Total Bilirubin (0.2-1.3) mg/dL Lactate Dehydrogenase (313-618) U/L Troponin I 0.053 H* (0.000-0.034) ng/mL Total Protein (6.3-8.2) g/dL Albumin (3.5-5.0) g/dL Crossmatch 10/18/19 10/18/19 10/18/19 Range/Units 06:18 06:18 06:43 WBC 2.9 L (3.8-10.6) k/uL RBC 1.74 L (3.80-5.40) m/uL Hgb 6.2 L* (11.4-16.0) gm/dL Hct 17.6 L* (34.0-46.0) % MCV 101.2 H (80.0-100.0) fL MCH 35.4 H (25.0-35.0) pg RDW 24.0 H (11.5-15.5) % Plt Count 6 L* D (150-450) k/uL Neutrophils # (Manual) 0.80 L (1.3-7.7) k/uL Lymphocytes # (Manual) 0.64 L (1.0-4.8) k/uL Monocytes # (Manual) 1.36 H (0-1.0) k/uL Metamyelocytes # (Man) 0.03 H (0) k/uL Myelocytes # (Manual) 0.06 H (0) k/uL Nucleated RBCs 22 H (0-0) /100 WBC Macrocytosis Marked A Retic Count (0.5-2.0) % Chloride 108 H (98-107) mmol/L Carbon Dioxide 20 L (22-30) mmol/L BUN 47 H (7-17) mg/dL Creatinine 3.09 H (0.52-1.04) mg/dL Glucose 108 H (74-99) mg/dL POC Glucose (mg/dL) 117 H (75-99) mg/dL Calcium 6.7 L (8.4-10.2) mg/dL Iron (50-170) ug/dL TIBC (228-460) ug/dL % Saturation (12.00-45.00) Ferritin (10.0-291.0) ng/mL Total Bilirubin 1.8 H (0.2-1.3) mg/dL Lactate Dehydrogenase (313-618) U/L Troponin I (0.000-0.034) ng/mL Total Protein 5.5 L (6.3-8.2) g/dL Albumin 2.6 L (3.5-5.0) g/dL Crossmatch 10/18/19 Range/Units 11:34 WBC (3.8-10.6) k/uL RBC (3.80-5.40) m/uL Hgb (11.4-16.0) gm/dL Hct (34.0-46.0) % MCV (80.0-100.0) fL MCH (25.0-35.0) pg RDW (11.5-15.5) % Plt Count (150-450) k/uL Neutrophils # (Manual) (1.3-7.7) k/uL Lymphocytes # (Manual) (1.0-4.8) k/uL Monocytes # (Manual) (0-1.0) k/uL Metamyelocytes # (Man) (0) k/uL Myelocytes # (Manual) (0) k/uL Nucleated RBCs (0-0) /100 WBC Macrocytosis Retic Count (0.5-2.0) % Chloride (98-107) mmol/L Carbon Dioxide (22-30) mmol/L BUN (7-17) mg/dL Creatinine (0.52-1.04) mg/dL Glucose (74-99) mg/dL POC Glucose (mg/dL) 114 H (75-99) mg/dL Calcium (8.4-10.2) mg/dL Iron (50-170) ug/dL TIBC (228-460) ug/dL % Saturation (12.00-45.00) Ferritin (10.0-291.0) ng/mL Total Bilirubin (0.2-1.3) mg/dL Lactate Dehydrogenase (313-618) U/L Troponin I (0.000-0.034) ng/mL Total Protein (6.3-8.2) g/dL Albumin (3.5-5.0) g/dL Crossmatch Microbiology - Last 24 Hours (Table) 10/17/19 13:26 Urine Culture - Preliminary Urine,Voided Assessment and Plan (1) Tumor lysis syndrome following antineoplastic drug therapy Narrative/Plan: Uric acid 17. Allopurinol ordered, elitek ordered. Uric acid daily along with other TLS labs Current Visit: Yes Status: Acute Priority: High Code(s): E88.3 - TUMOR LYSIS SYNDROME; T45.1X5A - ADVERSE EFFECT OF ANTINEOPLASTIC AND IMMUNOSUP DRUGS, INIT SNOMED Code(s): 959285286 (2) Pancytopenia due to antineoplastic chemotherapy Narrative/Plan: Pt counts have progressively declined of the last few weeks. Her IDHIFA for AML was held 6 days ago. Cont to hold for now. Close CBC monitoring. Transfuse for Hgb <7, plt less than 10K or if symptomatic-pt getting PRBC and platelets today. No intervention for WBC count at this time-pt is acute leukemia not in remission. No indication for GCSF in acute leukemia without remission Current Visit: Yes Status: Acute Priority: High Code(s): D61.810 - ANTINEOPLASTIC CHEMOTHERAPY INDUCED PANCYTOPENIA; T45.1X5A - ADVERSE EFFECT OF ANTINEOPLASTIC AND IMMUNOSUP DRUGS, INIT SNOMED Code(s): 091996818937486 (3) Acute renal failure Narrative/Plan: Nephrology consulted. 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 Peripheral smear ordered, no blasts. TLS work up was ordered and pt was noted to have acute renal failure and elevated uric acid. STAT uric acid level ordered. If still elevated then elitek will be ordered. 300mg allopurinol ordered STAT. Current Visit: Yes Status: Chronic Priority: High Code(s): C92.50 - ACUTE MYELOMONOCYTIC LEUKEMIA, NOT HAVING ACHIEVED REMISSION SNOMED Code(s): 606389533 Plan: Labs in AM. May have to consider differentiation syndrome as cause.
[2019-10-18] MEDS: ALLOPURINOL 300 MG TAB PO SCH (17:36)
[2019-10-18 20:02] LABS: Glucose,Whole Blood 117 mg/dL (75-99)
--- NOTE | 2019-10-18 23:29 | CONS ---
CONSULTATION DATE OF SERVICE: 10/18/2019 REASON FOR CONSULTATION: AML and UTI. HISTORY OF PRESENT ILLNESS: The patient is a 64-year-old female who presented to the ER at [facility] yesterday with generalized weakness. The patient's symptom has been getting worse for the last 4 days. The patient said that she usually gets up and goes to the bathroom on her own. However, she has not been able to do so for the last 4 days; has had difficulty in getting out of the bed. The patient denies any fever or chills. No URI symptoms. No chest pain or shortness of breath or cough. No nausea, vomiting or abdominal pain or any diarrhea. With these symptoms, the patient was evaluated by the ER physician on arrival in the ER. The patient has been afebrile and no fever has been recorded. The patient's white count was initially normal, though she did have a slight drop in the white count to 2.9. She did have a low hemoglobin of 6.3. She also noticed to have elevated creatinine of 3.72 at the same time she was noticed to have a positive UA with large leukocyte esterase, more than 182 WBCs and moderate bacteria. Urine culture is currently pending. The patient has been treated with Rocephin. Infectious Disease has been consulted for further recommendations regarding antibiotic therapy. The patient also had a chest x-ray that was negative for any acute cardiopulmonary process. REVIEW OF SYSTEMS: Positive points have been mentioned in the HPI. The rest of the systems are negative. PAST MEDICAL HISTORY: 1. AML. 2. Hypertension. 3. Hyperlipidemia. 4. Type 2 diabetes mellitus. PAST SURGICAL HISTORY: 1. Bone marrow biopsy. 2. PICC line placement. SOCIAL HISTORY: The patient denies smoking, drinking or drug use. FAMILY HISTORY: No pertinent findings noticed. ALLERGIES: LATEX. MEDICATIONS: Medications currently include: 1. Megace. 2. Lopressor. 3. Theragran. 4. Narcan. 5. Zofran. 6. Compazine. 7. IV fluid. 8. Pepcid. 9. Lanoxin. 10.Celexa. 11.Rocephin 1 gram daily. 12.Zyloprim. PHYSICAL EXAMINATION: On examination, her blood pressure is 102/57 with a pulse of 90, temperature 97.7. She is 98% on room air. General description is an elderly female lying in bed in no distress. No tachypnea or accessory muscle of respiration use. HEENT examination shows pallor. No scleral icterus. Oral mucosa membrane is dry. No pharyngeal erythema or thrush. NECK: Trachea is central. No thyromegaly. LUNGS: Unlabored breathing. Clear to auscultation anteriorly. No wheeze or crackle. HEART: S1, S2. Regular rate and rhythm. ABDOMEN: Soft. No tenderness. No guarding or rigidity. EXTREMITIES: No edema of the feet. SKIN EXAMINATION: No rash or mass palpable. NEUROLOGIC: Patient is awake and alert, oriented x3. Mood and affect normal. LABS: Hemoglobin 6.2, white count 2.9. BUN of 47, creatinine 3.7. Electrolyte count has been normal. Uric acid 17. Urine has been positive. Cultures currently pending. DIAGNOSTIC IMPRESSION AND PLAN: Patient presented to hospital with generalized weakness, which is likely multifactorial in this patient who did have evidence of dehydration as well as anemia. She did have a positive UA. Underlying UTI likely and from an enteric Gram-negative pathogen. PLAN: 1. Rocephin 1 gram IV piggyback daily. 2. Gentle IV fluid. 3. Will follow up on clinical condition and culture to further adjust medication if needed. Thank you for this consultation. Will follow this patient along with you. MMODL / IJN: [id number] / ZANDER
[2019-10-19 06:14] LABS: Glucose,Whole Blood 105 mg/dL (75-99)
[2019-10-19] MEDS: CITALOPRAM HYDROBROMIDE 20 MG TAB PO SCH (06:36)
[2019-10-19] MEDS: DIGOXIN 125 MCG TAB PO SCH (06:36)
[2019-10-19 06:48] LABS: Anisocytosis Marked; Hypochromasia Slight; MCH 33.1 pg (25.0-35.0); MCV 103.3 fL (80.0-100.0); Macrocytosis Marked; RBC 1.72 m/uL (3.80-5.40)
[2019-10-19 07:02] LABS: Albumin 2.4 g/dL (3.5-5.0); Potassium 3.5 mmol/L (3.5-5.1); Total Bilirubin 1.3 mg/dL (0.2-1.3); Total Protein 5.2 g/dL (6.3-8.2); Uric Acid 5.2 mg/dL (3.7-7.4)
[2019-10-19 07:11] LABS: HCT 17.7 % (34.0-46.0); HGB 5.7 gm/dL (11.4-16.0)
[2019-10-19 07:12] LABS: Platelet Count 5 k/uL (150-450)
[2019-10-19 07:27] LABS: Calcium 6.3 mg/dL (8.4-10.2)
[2019-10-19] MEDS ORDERED: Potassium Replacement Protocol 1 EACH MISC MISCELLANE PRN (07:44)
[2019-10-19] MEDS ORDERED: DEXAMETHASONE 4 MG TAB PO STA (07:44)
[2019-10-19 08:34] LABS: Lymphocytes # (M) 1.24 k/uL (1.0-4.8); Monocytes # (M) 1.21 k/uL (0-1.0); Neutrophils # (M) 0.65 k/uL (1.3-7.7); Neutrophils % (M) 21 %; Nucleated Red Blood Cells 8 /100 WBC (0-0); Polychromasia Present; Total Cells Counted 100; WBC 3.1 k/uL (3.8-10.6)
[2019-10-19] MEDS: SODIUM CHLORIDE 0.9% 1,000 ML IV SCH ×2 (09:18→19:43)
[2019-10-19] MEDS: ALLOPURINOL 300 MG TAB PO SCH (09:19)
[2019-10-19] MEDS: FAMOTIDINE 20 MG TAB PO SCH (09:19)
[2019-10-19] MEDS: POTASSIUM CHLORIDE ER 20 MEQ TAB.ER PO SCH ×2 (09:19→10:03)
[2019-10-19] MEDS: MEGESTROL 400 MG/10 ML CUP PO SCH (09:20)
[2019-10-19] MEDS: MULTIVITAMINS, THERA 1 EACH TAB PO SCH (09:20)
[2019-10-19] MEDS: METOPROLOL TARTRATE 50 MG TAB PO SCH ×3 (09:20→19:47)
--- NOTE | 2019-10-19 10:09 | P.CRDCN ---
History of Present Illness Consult date: 10/19/19 Requesting physician: Chris Galeana Reason for Consult (text): Abnormal troponin Chief complaint: Weakness History of present illness: This is a pleasant 64-year-old female with history of diabetes, hypertension, hyperlipidemia, AML diagnosed in March of this year, her last chemo was in June of this year, presented to the hospital on this occasion with symptoms of extreme weakness. Patient was recently in the hospital in August because of bright red blood per rectum, her hemoglobin was low and she was transfused and subsequently discharged home with her hemoglobin being stable in the 8 range. Chest x-ray on presentation here did not reveal any acute cardiopulmonary process. EKG shows normal sinus rhythm with no acute changes. Blood pressure on arrival here 100/60 with a heart rate in the 90s, 99% on room air. White blood cell count on admission 8.3, 3.1 this morning, hemoglobin 6.3 on admission, 5.7 this morning, platelet count 13 on admission, 5 this morning. Sodium on admission 136, potassium 5.7, BUN 60, creatinine 3.7, calcium 7.7, magnesium 2.1, iron 184, TIBC 208, saturation 88.4, ferritin 3092, total bili 2.1. Lactate dehydrogenase 954, initial troponin 0.04, subsequent troponin 0.05. Positive stool for occult blood, positive UTI. Sodium this morning 138, potassium 3.5, BUN 47, creatinine 3.2, calcium 6.3. At the time of my examination this morning, patient states that she feels much better than on presentation here. She denies having any chest discomfort this morning, and denies any chest discomfort prior to coming to the hospital. Patient did receive a unit of packed red blood cells, she was also started on Rocephin for UTI. Past Medical History Past Medical History: Cancer, Diabetes Mellitus, Hyperlipidemia, Hypertension Additional Past Medical History / Comment(s): AML diagnosed 03/2019. chemo last in 2018. new dx. of GI bleed. anemia History of Any Multi-Drug Resistant Organisms: None Reported Past Surgical History: No Surgical Hx Reported Additional Past Surgical History / Comment(s): picc line. bone marrow bx x2 Past Anesthesia/Blood Transfusion Reactions: No Reported Reaction Past Psychological History: No Psychological Hx Reported Smoking Status: Never smoker Past Alcohol Use History: None Reported Past Drug Use History: None Reported - Past Family History Mother Family Medical History: Cancer Sister(s) Family Medical History: Cancer Additional Family Medical History / Comment(s): breast CA Medications and Allergies Home Medications Medication Instructions Recorded Confirmed Type Acetaminophen-Codeine 300-30mg 1 tab PO Q6H PRN 05/07/19 10/17/19 History [Tylenol w/codeine #3] Loperamide [Imodium] 2 mg PO QID PRN #30 cap 05/25/19 10/17/19 Rx Potassium Chloride Oral Liquid 20 meq PO BID 06/29/19 10/17/19 History Citalopram Hydrobromide [CeleXA] 20 mg PO DAILY@0700 09/09/19 10/17/19 History Digoxin [Lanoxin] 125 mcg PO DAILY@0700 09/09/19 10/17/19 History Enasidenib Mesylate [Idhifa] 100 mg PO DIRECTED 09/09/19 10/17/19 History Metoprolol Tartrate [Lopressor] 50 mg PO TID 09/09/19 10/17/19 History Multivitamins, Thera [Multivitamin 1 tab PO DAILY 09/09/19 10/17/19 History (formulary)] Ondansetron [Zofran] 4 mg PO Q8H PRN 09/09/19 10/17/19 History Megestrol [Megace] 800 mg PO DAILY 10/17/19 10/17/19 History Prochlorperazine [Compazine] 10 mg PO Q6H PRN 10/17/19 10/17/19 History Allergies Allergy/AdvReac Type Severity Reaction Status Date / Time latex Allergy Rash/Hives Verified 10/17/19 13:33 Physical Exam Vitals: Vital Signs Temp Pulse Pulse Resp BP BP Pulse Ox 10/19/19 08:00 99.0 F 94 16 100/62 96 10/19/19 04:00 98.0 F 91 17 93/55 97 10/19/19 00:00 99.2 F 92 18 105/53 97 10/18/19 20:00 98.9 F 86 18 98/53 97 10/18/19 15:16 97.7 F 90 20 102/57 98 10/18/19 14:18 96.9 F L 93 20 96/55 10/18/19 12:41 97.3 F L 94 20 103/53 10/18/19 12:11 98 F 97 20 124/57 10/18/19 12:01 98.9 F 86 20 92/50 94 L 10/18/19 11:19 98.9 F 86 20 92/50 94 L Intake and Output 10/18/19 10/19/19 10/19/19 22:59 06:59 14:59 Intake Total 0 480 Balance 0 480 Intake: Oral 0 480 Other: Voiding Method Toilet Toilet Incontinent Incontinent # Voids 2 Weight 74 kg In general patient is alert and oriented 3 in no apparent distress HEENT head normocephalic and atraumatic Neck is supple no JVD no goiter no lymphadenopathy Chest exam reveals a few scattered rhonchi no wheezing Cardiac exam reveals regular heart sounds no gallops no murmurs Abdomen is soft nontender no organomegaly Extremity exam reveals no edema no cyanosis or clubbing Neurological examination reveals no gross focal deficit Results 10/19/19 06:16 10/19/19 06:16 Cardiac Enzymes 10/19/19 Range/Units 06:16 AST 28 (14-36) U/L CBC 10/19/19 Range/Units 06:16 WBC 3.1 L (3.8-10.6) k/uL RBC 1.72 L (3.80-5.40) m/uL Hgb 5.7 L* (11.4-16.0) gm/dL Hct 17.7 L* (34.0-46.0) % Plt Count 5 L* (150-450) k/uL Comprehensive Metabolic Panel 10/19/19 Range/Units 06:16 Sodium 138 (137-145) mmol/L Potassium 3.5 (3.5-5.1) mmol/L Chloride 110 H (98-107) mmol/L Carbon Dioxide 18 L (22-30) mmol/L BUN 47 H (7-17) mg/dL Creatinine 3.26 H (0.52-1.04) mg/dL Glucose 96 (74-99) mg/dL Calcium 6.3 L* (8.4-10.2) mg/dL AST 28 (14-36) U/L ALT 12 (4-34) U/L Alkaline Phosphatase 56 (38-126) U/L Total Protein 5.2 L (6.3-8.2) g/dL Albumin 2.4 L (3.5-5.0) g/dL Current Medications Generic Name Dose Route Start Last Admin Trade Name Freq PRN Reason Stop Dose Admin Acetaminophen/Codeine Phosphate 1 each 10/17/19 19:48 Tylenol #3 PO Q6H PRN Pain Allopurinol 300 mg 10/18/19 17:15 10/19/19 09:19 Zyloprim PO 300 mg DAILY LAST Administration Citalopram Hydrobromide 20 mg 10/18/19 07:00 10/19/19 06:36 Celexa PO 20 mg DAILY@0700 LAST Administration Digoxin 125 mcg 10/18/19 07:00 10/19/19 06:36 Lanoxin PO 125 mcg DAILY@0700 LAST Administration Famotidine 20 mg 10/19/19 09:00 10/19/19 09:19 Pepcid PO 20 mg DAILY LAST Administration Sodium Chloride 1,000 mls @ 75 mls/hr 10/17/19 12:45 10/19/19 09:18 Saline 0.9% IV 75 mls/hr .[id number] LAST Administration Ceftriaxone Sodium 1 gm/ 50 mls @ 100 mls/hr 10/17/19 20:00 10/19/19 09:19 Sodium Chloride IVPB 100 mls/hr Q24HR LAST Administration Megestrol Acetate 800 mg 10/18/19 09:00 10/19/19 09:20 Megace PO 800 mg DAILY LAST Administration Metoprolol Tartrate 50 mg 10/17/19 22:00 10/19/19 09:20 Lopressor PO 50 mg TID LAST Administration Midodrine 5 mg 10/19/19 17:30 Proamatine PO AC-BID [facility] Miscellaneous Information 1 each 10/19/19 07:44 Potassium Per Protocol MISCELLANE DAILY PRN Per Protocol Protocol Multivitamins 1 each 10/18/19 09:00 10/19/19 09:20 Theragran PO 1 each DAILY LAST Administration Naloxone HCl 0.2 mg 10/17/19 12:44 Narcan IV Q2M PRN Opioid Reversal Ondansetron HCl 4 mg 10/17/19 19:48 Zofran PO Q8H PRN Nausea Prochlorperazine Maleate 10 mg 10/17/19 19:48 Compazine PO Q6H PRN Nausea Intake and Output 10/18/19 10/19/19 10/19/19 22:59 06:59 14:59 Intake Total 0 480 Balance 0 480 Intake: Oral 0 480 Other: Voiding Method Toilet Toilet Incontinent Incontinent # Voids 2 Weight 74 kg 10/19/19 06:16 10/19/19 06:16 EKG Interpretations (text) EKG shows a normal sinus rhythm with no acute changes. Assessment and Plan Plan: Assessment and plan: #1 generalized weakness likely related to acute on chronic anemia. Oncology services are following. Patient received 1 unit PRBCs. #2 recent admission with gastrointestinal bleeding, at this time no mara blood from the rectum however stool Hemoccult was positive #3 underlying history of AML last chemotherapy in June 2019 #4 acute kidney injury secondary to hypovolemia, hypotension. #5 elevated troponin, not consistent with acute coronary syndrome, likely secondary to anemia and abnormal renal function #6 evidence of UTI #7 underlying history of hypertension #8 underlying history of hyperlipidemia #9 underlying history of diabetes mellitus. #10. Acute on chronic thrombocytopenia secondary to chemotherapy and leukemia. 1 unit of platelets has been ordered per oncology services Plan Abnormality in troponin not consistent with acute coronary syndrome, likely secondary to anemia and abnormal renal function. We will obtain an echoc ardiogram with Doppler study. Continue metoprolol. Further recommendations to follow. DNP note has been reviewed, I agree with a documented findings and plan of care. Patient was seen and examined.
--- NOTE | 2019-10-19 10:19 | P.PN ---
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 Patient also has a known history of hypertension, hyperlipidemia, and diabetes mellitus. On 10/18/2019 patient's alert and oriented resting comfortably in bed. Discussed case with oncology services. Patient got 1 unit PRBCs yesterday 1 unit of platelets ordered for today per oncology. Patient started on Rocephin for UTI. Infectious disease services have been consulted. Creatinine improving to 3.09 bun 47. Nephrology services are following. At this time patient denies chest pain or shortness of breath. Patient denies nausea vomiting diarrhea. Patient denies any urinary burning or frequency On 10/19/2019 patient's alert and oriented resting comfortably bed. Hemoglobin 5.7 platelets 5. Per Oncology patient will receive 1 unit PRBCs and 1 unit platelets. Her nursing signs of bleeding patient had dark stool with bowel movement.She remains on Rocephin for urinary tract infection. Dr. Estevez following. Cardiology services have been consulted for abnormal troponin. At this time patient denies chest pain or shortness of breath. Patient denies any urinary burning or frequency. Patient denies nausea vomiting or diarrhea. Objective - Vital Signs Vital signs: Vital Signs Temp 99.0 F 10/19/19 08:00 Pulse 94 10/19/19 08:00 Resp 16 10/19/19 08:00 BP 100/62 10/19/19 08:00 Pulse Ox 96 10/19/19 08:00 Intake & Output 10/18/19 10/19/19 10/19/19 18:59 06:59 18:59 Intake Total 1539 480 Output Total 1 Balance 1538 480 Weight 73.5 kg 74 kg Intake: Intake, IV Titration 500 Amount Sodium Chloride 0.9% 1, 450 000 ml @ 75 mls/hr IV . [id number] [facility] Rx#:[id number] cefTRIAXone 1 gm In 50 Sodium Chloride 0.9% 50 ml @ 100 mls/hr IVPB Q24HR [facility] Rx#:[id number] Oral 380 480 Blood Product 659 Platelet Irr Pheresis 309 Acda1 Unit [id number] Output: Urine/Stool Mix 1 Other: Voiding Method Toilet Toilet Incontinent Incontinent # Voids 2 - Exam In general patient is alert and oriented 3 in no apparent distress HEENT head normocephalic and atraumatic Neck is supple no JVD no goiter no lymphadenopathy Chest exam reveals a few scattered rhonchi no wheezing Cardiac exam reveals regular heart sounds no gallops no murmurs Abdomen is soft nontender no organomegaly Extremity exam reveals no edema no cyanosis or clubbing Neurological examination reveals no gross focal deficit - Labs CBC & Chem 7: 10/19/19 06:16 10/19/19 06:16 Labs: Abnormal Lab Results - Last 24 Hours (Table) 10/17/19 10/17/19 10/18/19 Range/Units 11:04 11:04 06:18 WBC (3.8-10.6) k/uL RBC (3.80-5.40) m/uL Hgb (11.4-16.0) gm/dL Hct (34.0-46.0) % MCV (80.0-100.0) fL RDW (11.5-15.5) % Plt Count (150-450) k/uL Neutrophils # (Manual) (1.3-7.7) k/uL Monocytes # (Manual) (0-1.0) k/uL Nucleated RBCs (0-0) /100 WBC Macrocytosis Chloride (98-107) mmol/L Carbon Dioxide (22-30) mmol/L BUN (7-17) mg/dL Creatinine (0.52-1.04) mg/dL POC Glucose (mg/dL) (75-99) mg/dL Uric Acid 17.0 H* (3.7-7.4) mg/dL Calcium (8.4-10.2) mg/dL Iron 184 H (50-170) ug/dL TIBC 208 L (228-460) ug/dL % Saturation 88.46 H (12.00-45.00) Ferritin 3092.8 H (10.0-291.0) ng/mL Total Protein (6.3-8.2) g/dL Albumin (3.5-5.0) g/dL Crossmatch See Detail 10/18/19 10/18/19 10/18/19 Range/Units 11:34 16:34 20:01 WBC (3.8-10.6) k/uL RBC (3.80-5.40) m/uL Hgb (11.4-16.0) gm/dL Hct (34.0-46.0) % MCV (80.0-100.0) fL RDW (11.5-15.5) % Plt Count (150-450) k/uL Neutrophils # (Manual) (1.3-7.7) k/uL Monocytes # (Manual) (0-1.0) k/uL Nucleated RBCs (0-0) /100 WBC Macrocytosis Chloride (98-107) mmol/L Carbon Dioxide (22-30) mmol/L BUN (7-17) mg/dL Creatinine (0.52-1.04) mg/dL POC Glucose (mg/dL) 114 H 101 H 117 H (75-99) mg/dL Uric Acid (3.7-7.4) mg/dL Calcium (8.4-10.2) mg/dL Iron (50-170) ug/dL TIBC (228-460) ug/dL % Saturation (12.00-45.00) Ferritin (10.0-291.0) ng/mL Total Protein (6.3-8.2) g/dL Albumin (3.5-5.0) g/dL Crossmatch 10/19/19 10/19/19 10/19/19 Range/Units 06:13 06:16 06:16 WBC 3.1 L (3.8-10.6) k/uL RBC 1.72 L (3.80-5.40) m/uL Hgb 5.7 L* (11.4-16.0) gm/dL Hct 17.7 L* (34.0-46.0) % MCV 103.3 H (80.0-100.0) fL RDW 24.0 H (11.5-15.5) % Plt Count 5 L* (150-450) k/uL Neutrophils # (Manual) 0.65 L (1.3-7.7) k/uL Monocytes # (Manual) 1.21 H (0-1.0) k/uL Nucleated RBCs 8 H (0-0) /100 WBC Macrocytosis Marked A Chloride 110 H (98-107) mmol/L Carbon Dioxide 18 L (22-30) mmol/L BUN 47 H (7-17) mg/dL Creatinine 3.26 H (0.52-1.04) mg/dL POC Glucose (mg/dL) 105 H (75-99) mg/dL Uric Acid (3.7-7.4) mg/dL Calcium 6.3 L* (8.4-10.2) mg/dL Iron (50-170) ug/dL TIBC (228-460) ug/dL % Saturation (12.00-45.00) Ferritin (10.0-291.0) ng/mL Total Protein 5.2 L (6.3-8.2) g/dL Albumin 2.4 L (3.5-5.0) g/dL Crossmatch Microbiology - Last 24 Hours (Table) 10/17/19 13:26 Urine Culture - Final Urine,Voided Assessment and Plan Assessment: #1 generalized weakness likely related to acute on chronic anemia. Oncology services are following. Patient received 1 unit PRBCs. 1 unit of platelets have been ordered per oncology service. 5.7. Additional unit of PRBCs has been ordered per oncology #2 recent admission with gastrointestinal bleeding, at this time no mara blood from the rectum however stool Hemoccult was positive #3 underlying history of AML last chemotherapy in June 2019 oncology consultation was requested. #4 acute kidney injury secondary to hypovolemic hypotension. elevated BUN and creatinine at 60 and 3.72 last creatinine on September 13 was 0.82 . Creatinine improving to 3.09 and bun 47. nephrology services are following,. Ultrasound of kidney renal and bladder has been ordered per nephrology #5 elevated troponin level patient denies any chest pain, this could be related to abnormal kidney function. Cardiology services are following. 2-D echo has been ordered. Likely secondary to edema and abnormal renal function #6 evidence of UTI, will obtain urine culture and start Rocephin. Culture ordered. Infectious disease consulted #7 underlying history of hypertension will resume metoprolol #8 underlying history of hyperlipidemia #9 underlying history of diabetes mellitus. #10. Acute on chronic thrombocytopenia secondary to chemotherapy and leukemia. 1 unit of platelets has been ordered per oncology services #11. Tumor lysis syndrome following antineoplastic chemotherapy. Uric acid 17. Allopurinol ordered per oncology. Elitek has been ordered per oncology DVT prophylaxis SCDs. GI prophylaxis Pepcid Oncology, nephrology, cardiology and infectious disease services are following. Urine culture ordered. Normal saline at 75 PT OT consulted I performed an examination of the patient and discussed their management with the Nurse Practitioner. I have reviewed the Nurse Practitioner's notes and agree with the documented findings and plan of care
--- NOTE | 2019-10-19 10:54 | PN ---
PROGRESS NOTE Patient is seen for followup for acute kidney injury. She was admitted to the hospital with increased weakness. The patient has an underlying history of AML, maintained on chemotherapy. She came in with a hemoglobin of 6.3 and creatinine of 3.7 mg/dL. Her serum creatinine has improved. It is down to 3.2, however, it was 3.0 yesterday. Previous labs show a creatinine of 0.8 on 09/13/2019. Patient did get a dose of Rasburicase for hyperuricemia and possible tumor lysis syndrome. She is being followed by Oncology. The patient is incontinent. She states she has been putting out good amount of urine. She is maintained on IV fluids as well. The kidney ultrasound has not been done yet. Hemoglobin was down to 5.7 this morning. Patient is getting more packed RBCs transfusion. PHYSICAL EXAMINATION: On examination today, blood pressure was 100/62, heart rate 94 per minute. She is afebrile. EXAMINATION OF THE HEART: S1, S2. EXAMINATION OF THE LUNGS: Decreased breath sounds at bases. Abdomen is soft, nontender. Examination of lower extremities shows no significant edema. 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 The patient is moving all 4 extremities. LABS: Labs show sodium of 138, potassium 3.5, chloride 110, CO2 is 18, BUN 47, creatinine 3.26, serum calcium is 6.3, albumin 2.4. CBC shows hemoglobin 5.7, platelet count 5000, white cell count 3.1. ASSESSMENT: 1. Acute kidney injury secondary to severe anemia, hypotension, hypoperfusion, rule out urine retention. However, I doubt it. We will check a postvoid residual and ultrasound of the kidneys has also been ordered. There is consideration for tumor lysis syndrome as well and patient is status post Rasburicase. Uric acid is improved. Check a phosphorus level as well. Calcium is at 6.3. 2. Acute myeloid leukemia, status post chemotherapy with tumor lysis syndrome. 3. Metabolic acidosis secondary to renal failure, fairly stable. 4. Pancytopenia secondary to underlying cancer and chemotherapy. 5. Elevated troponins, currently being monitored. 6. Gastrointestinal bleed in a setting of thrombocytopenia. No active bleeding noted, status post packed RBCs transfusion. PLAN: Continue IV fluids. Transfuse packed RBCs. Check ultrasound of the kidneys. Check phosphorus level and repeat labs in a.m. No indication for dialysis at this point. We will continue to monitor on a daily basis. MMODL / IJN: [id number] /
[2019-10-19 12:08] LABS: Glucose,Whole Blood 145 mg/dL (75-99)
--- NOTE | 2019-10-19 13:53 | CDI ---
Documentation Clarification Form Date: 10/19/2019 01:29:48 PM From: Tori Conroy RN, CCDS Admit Date: 10/17/2019 12:45:00 PM Patient Name: Mey Hernandez Visit Number: [id number] Discharge Date: ATTENTION: The Clinical Documentation Specialists (CDI) and [facility] Coding Staff appreciate your assistance in clarifying documentation. Please respond to the clarification below the line at the bottom and electronically sign. The CDI & [facility] Coding staff will review the response and follow-up if needed. Please note: Queries are made part of the Legal Health Record. If you have any questions, please contact the author of this message via ITS. Dr. Chris Concepcion diagnosis of anemia lacks specificity to accurately reflect your patients severity of condition and clarification is needed. History/Risk Factors: Acute myelomonocytic leukemia, Pancytopenia, Tumor lysis syndrome, Acute renal failure Clinical indicators: 64 year-old female with history of AML present for complaints of weakness. She was found to have a low hemoglobin. Hemoglobin on admission: 6.3 Hematocrit: on admission 15.5 Treatment: 1 units of PRBCs transfused, iron, monitoring labs 1 unit Platelets Monitor CBC In the progress note on 10/18/19 and subsequent documentation acute on chronic anemic is noted. In order to capture the severity of condition, please clarify the type of anemia and etiology if known: Acute on chronic blood loss anemia Drug induced anemia Anemia due to malignancy Unable to determine Other, please specify (Last Revision: July 2017) Acute on chronic blood loss anemia MTDD
--- NOTE | 2019-10-19 14:03 | P.PN ---
Subjective Progress Note Date: 10/19/19 Principal diagnosis: AML, on oral treatment, pancytopenia In follow-up today patient continues to lay in bed, does not move around much, becomes SOB and weak quickly, denies fevers, nausea, pain. Objective - Vital Signs Vital signs: Vital Signs Temp 99.0 F 10/19/19 08:00 Pulse 94 10/19/19 08:00 Resp 16 10/19/19 08:00 BP 100/62 10/19/19 08:00 Pulse Ox 96 10/19/19 08:00 Intake & Output 10/18/19 10/19/19 10/19/19 18:59 06:59 18:59 Intake Total 1539 480 Output Total 1 Balance 1538 480 Weight 73.5 kg 74 kg Intake: Intake, IV Titration 500 Amount Sodium Chloride 0.9% 1, 450 000 ml @ 75 mls/hr IV . [id number] [facility] Rx#:[id number] cefTRIAXone 1 gm In 50 Sodium Chloride 0.9% 50 ml @ 100 mls/hr IVPB Q24HR [facility] Rx#:[id number] Oral 380 480 Blood Product 659 Platelet Irr Pheresis 309 Acda1 Unit [id number] Output: Urine/Stool Mix 1 Other: Voiding Method Toilet Toilet Incontinent Incontinent # Voids 2 - Constitutional General appearance: Present: average body habitus, cooperative, no acute dist ress - EENT EENT Comment(s): very dry mouth Eyes: Present: anicteric sclerae, EOMI ENT: Present: hearing grossly normal - Respiratory Respiratory: bilateral: CTA, diminished - Cardiovascular Rhythm: regular Heart sounds: normal: S1, S2 Abnormal Heart Sounds: Absent: systolic murmur, diastolic murmur, rub, S3 Gallop, S4 Gallop, click, other - Peripheral edema leg Peripheral Edema: bilateral: None - Gastrointestinal General gastrointestinal: Present: normal bowel sounds, soft - Musculoskeletal Musculoskeletal: Present: generalized weakness - Psychiatric Psychiatric: Present: A&O x's 3 - Labs CBC & Chem 7: 10/19/19 06:16 10/19/19 06:16 Labs: Abnormal Lab Results - Last 24 Hours (Table) 10/17/19 10/17/19 10/18/19 Range/Units 11:04 11:04 06:18 WBC (3.8-10.6) k/uL RBC (3.80-5.40) m/uL Hgb (11.4-16.0) gm/dL Hct (34.0-46.0) % MCV (80.0-100.0) fL RDW (11.5-15.5) % Plt Count (150-450) k/uL Neutrophils # (Manual) (1.3-7.7) k/uL Monocytes # (Manual) (0-1.0) k/uL Nucleated RBCs (0-0) /100 WBC Macrocytosis Chloride (98-107) mmol/L Carbon Dioxide (22-30) mmol/L BUN (7-17) mg/dL Creatinine (0.52-1.04) mg/dL POC Glucose (mg/dL) (75-99) mg/dL Uric Acid 17.0 H* (3.7-7.4) mg/dL Calcium (8.4-10.2) mg/dL Iron 184 H (50-170) ug/dL TIBC 208 L (228-460) ug/dL % Saturation 88.46 H (12.00-45.00) Ferritin 3092.8 H (10.0-291.0) ng/mL Total Protein (6.3-8.2) g/dL Albumin (3.5-5.0) g/dL Crossmatch See Detail 10/18/19 10/18/19 10/18/19 Range/Units 11:34 16:34 20:01 WBC (3.8-10.6) k/uL RBC (3.80-5.40) m/uL Hgb (11.4-16.0) gm/dL Hct (34.0-46.0) % MCV (80.0-100.0) fL RDW (11.5-15.5) % Plt Count (150-450) k/uL Neutrophils # (Manual) (1.3-7.7) k/uL Monocytes # (Manual) (0-1.0) k/uL Nucleated RBCs (0-0) /100 WBC Macrocytosis Chloride (98-107) mmol/L Carbon Dioxide (22-30) mmol/L BUN (7-17) mg/dL Creatinine (0.52-1.04) mg/dL POC Glucose (mg/dL) 114 H 101 H 117 H (75-99) mg/dL Uric Acid (3.7-7.4) mg/dL Calcium (8.4-10.2) mg/dL Iron (50-170) ug/dL TIBC (228-460) ug/dL % Saturation (12.00-45.00) Ferritin (10.0-291.0) ng/mL Total Protein (6.3-8.2) g/dL Albumin (3.5-5.0) g/dL Crossmatch 10/19/19 10/19/19 10/19/19 Range/Units 06:13 06:16 06:16 WBC 3.1 L (3.8-10.6) k/uL RBC 1.72 L (3.80-5.40) m/uL Hgb 5.7 L* (11.4-16.0) gm/dL Hct 17.7 L* (34.0-46.0) % MCV 103.3 H (80.0-100.0) fL RDW 24.0 H (11.5-15.5) % Plt Count 5 L* (150-450) k/uL Neutrophils # (Manual) 0.65 L (1.3-7.7) k/uL Monocytes # (Manual) 1.21 H (0-1.0) k/uL Nucleated RBCs 8 H (0-0) /100 WBC Macrocytosis Marked A Chloride 110 H (98-107) mmol/L Carbon Dioxide 18 L (22-30) mmol/L BUN 47 H (7-17) mg/dL Creatinine 3.26 H (0.52-1.04) mg/dL POC Glucose (mg/dL) 105 H (75-99) mg/dL Uric Acid (3.7-7.4) mg/dL Calcium 6.3 L* (8.4-10.2) mg/dL Iron (50-170) ug/dL TIBC (228-460) ug/dL % Saturation (12.00-45.00) Ferritin (10.0-291.0) ng/mL Total Protein 5.2 L (6.3-8.2) g/dL Albumin 2.4 L (3.5-5.0) g/dL Crossmatch Microbiology - Last 24 Hours (Table) 10/17/19 13:26 Urine Culture - Final Urine,Voided Assessment and Plan (1) Tumor lysis syndrome following antineoplastic drug therapy Narrative/Plan: Uric acid normal today after elitek, phos is slightly elevated at 4.7. Discussed case with Nephrology. Discontinued allopurinol. Uric acid daily for a few more days, along with other TLS labs Current Visit: Yes Status: Acute Priority: High Code(s): E88.3 - TUMOR LYSIS SYNDROME; T45.1X5A - ADVERSE EFFECT OF ANTINEOPLASTIC AND IMMUNOSUP DRUGS, INIT SNOMED Code(s): 270068233 (2) Pancytopenia due to antineoplastic chemotherapy Narrative/Plan: Pt counts have progressively declined of the last few weeks. Her IDHIFA for AML was held 6 days ago. Cont to hold for now. Close CBC monitoring. Transfuse for Hgb <7, plt less than 10K or if symptomatic-pt getting PRBC and platelets today. No intervention for WBC count at this time-pt is acute leukemia not in remission. No indication for GCSF in acute leukemia without remission Current Visit: Yes Status: Acute Priority: High Code(s): D61.810 - ANTINEOPLASTIC CHEMOTHERAPY INDUCED PANCYTOPENIA; T45.1X5A - ADVERSE EFFECT OF ANTINEOPLASTIC AND IMMUNOSUP DRUGS, INIT SNOMED Code(s): 330718437193722 (3) Acute renal failure Narrative/Plan: Discussed case with Nephrology. We discussed differentiation syndrome. Recommended treatment is steroids per pkg insert. Ok to give with renal function. Labs daily Current Visit: Yes Status: Acute Priority: High Code(s): N17.9 - ACUTE KIDNEY FAILURE, UNSPECIFIED SNOMED Code(s): 82875486 (4) Acute myelomonocytic leukemia not having achieved remission Narrative/Plan: Most recently IDHIFA held for progressively declining CBC, general unwellness. Peripheral smear ordered, no blasts at this time. Treating symptoms that are quite possibly related to treatment is the goal at this time. Discussed this with patient. She seemed to understand our discussion. Current Visit: Yes Status: Chronic Priority: High Code(s): C92.50 - ACUTE MYELOMONOCYTIC LEUKEMIA, NOT HAVING ACHIEVED REMISSION SNOMED Code(s): 123783767 Plan: Labs in AM. May have to consider differentiation syndrome as cause. Corrected Ca++ is 7.9mg/dl calculated with a normal albumin of 4.4., 7.5mg/dl with normal albumin of 4
--- NOTE | 2019-10-19 14:03 | US ---
EXAMINATION TYPE: US kidneys/renal and bladder DATE OF EXAM: 10/19/2019 COMPARISON: NONE CLINICAL HISTORY: Renal failure. EXAM MEASUREMENTS: Right Kidney: 10.3 cm Left Kidney: 10.9 cm Bladder is anechoic Inpatient that could not cooperate with examiner, by rolling on her side, holding her breath or movin g closer to examiner. Technically difficult study. Right Kidney: echogenic sinus Left Kidney: shadowing echogenic foci noted probable stone measuring 0.5 x 0.3 x 0.6cm, lobular, mild hydro vs prominent renal pelvis Bladder: wnl, ff seen to the right and the left of the bladder Cortical medullary differentiation is maintained. Hepatosplenomegaly noted. Splenule noted. IMPRESSION: Indeterminate echogenicity increase within the medullary aspects of the kidneys, possible nephrolithi asis on the left. Mild left-sided hydronephrosis suspected. There is some free fluid in the pelvis. H epatosplenomegaly.
[2019-10-19] MEDS: SALT AND SODA MOUTHWASH 1,000 ML PO SCH ×3 (16:18→23:46)
[2019-10-19 16:49] LABS: Glucose,Whole Blood 147 mg/dL (75-99)
--- NOTE | 2019-10-19 17:20 | PN ---
PROGRESS NOTE DATE OF SERVICE: 10/19/2019 REASON FOR FOLLOWUP: Urinary tract infection. INTERVAL HISTORY: The patient is currently afebrile. The patient is breathing comfortably. Denies having any chest pain or cough. No nausea, no vomiting, no abdominal pain or diarrhea. PHYSICAL EXAMINATION: Blood pressure 109/65 with a pulse of 75, temperature 98.1. She is 97% on room air. General description is an elderly female lying in bed in no distress. RESPIRATORY SYSTEM: Unlabored breathing with decreased breath sounds at the base. No wheeze. HEART: S1, S2. Regular rate and rhythm. ABDOMEN: Soft. No tenderness. LABS: Hemoglobin is 5.7, white count 3.1, BUN of 47, creatinine 3.26. Urine so far negative. DIAGNOSTIC IMPRESSION AND PLAN: Patient admitted to hospital with generalized weakness which is likely multifactorial in this patient who did have evidence of anemia and dehydration and a positive urinalysis with concern for possible urinary tract infection. Ultrasound showing a mild left-sided hydronephrosis and possible stones. The patient is currently covered with Rocephin; to continue while monitoring her clinical course closely. MMODL / IJN: [id number] /
[2019-10-19] MEDS: MIDODRINE 5 MG TAB PO SCH (17:25)
[2019-10-19] MEDS: DEXAMETHASONE 4 MG TAB PO SCH (19:47)
--- NOTE | 2019-10-19 19:50 | ECHOF ---
Referral Reason:abn trop MEASUREMENTS -------- HEIGHT: 162.6 cm WEIGHT: 73.9 kg BP: 100/62 IVSd: 1.2 cm (0.6 - 1.1) LVIDd: 3.4 cm (3.9 - 5.3) LVPWd: 1.1 cm (0.6 - 1.1) IVSs: 1.3 cm LVIDs: 2.4 cm LVPWs: 1.5 cm LAESV Index (A-L): 32.82 ml/m Ao Diam: 3.0 cm (2.0 - 3.7) AV Cusp: 2.0 cm (1.5 - 2.6) LA Diam: 4.4 cm (2.7 - 3.8) MV E Arthur: 0.86 m/s MV DecT: 260 ms MV A Arthur: 1.13 m/s MV E/A Ratio: 0.76 AV maxP.53 mmHg AV meanP.75 mmHg RAP: 5.00 mmHg RVSP: 37.99 mmHg FINDINGS -------- Sinus rhythm. This was a technically difficult study with suboptimal apical views. Pt. not compliant. The left ventricular size is normal. There is mild concentric left ventricular hypertrophy. Overa ll left ventricular systolic function is normal with, an EF between 55 - 60 %. The diastolic fillin g pattern is normal for the age of the patient 13.38. The RV was not well visualized. LA is midly dilated 29-33ml/m2. The right atrium was not well visualized. 5.0mg of Lumason was utilized for enhancement of images Interatrial and interventricular septum intact. The aortic valve was not well visualized. There is no evidence of aortic regurgitation. There is no evidence of aortic stenosis. The mitral valve was not well visualized. Mild mitral regurgitation is present. Mild tricuspid regurgitation present. There is mild pulmonary hypertension. The right ventricular systolic pressure, as measured by Doppler, is 37.99mmHg. The pulmonic valve was not well visualized. The aortic root size is normal. IVC Not well visulized. There is no pericardial effusion. CONCLUSIONS -------- 1. Sinus rhythm. 2. This was a technically difficult study with suboptimal apical views. 3. Pt. not compliant. 4. The left ventricular size is normal. 5. There is mild concentric left ventricular hypertrophy. 6. Overall left ventricular systolic function is normal with, an EF between 55 - 60 %. 7. The diastolic filling pattern is normal for the age of the patient 13.38 8. The RV was not well visualized. 9. LA is midly dilated 29-33ml/m2. 10. 5.0mg of Lumason was utilized for enhancement of images 11. The aortic valve was not well visualized. 12. There is no evidence of aortic regurgitation. 13. There is no evidence of aortic stenosis. 14. Mild mitral regurgitation is present. 15. Mild tricuspid regurgitation present. 16. There is mild pulmonary hypertension. 17. The pulmonic valve was not well visualized. 18. There is no pericardial effusion. PAYROLL SERVICES ANALYST: Tammy Leiva RDCS
[2019-10-19 20:33] LABS: Glucose,Whole Blood 160 mg/dL (75-99)
[2019-10-20] MEDS: SALT AND SODA MOUTHWASH 1,000 ML PO SCH ×5 (05:52→20:10)
[2019-10-20 05:59] LABS: Glucose,Whole Blood 164 mg/dL (75-99)
[2019-10-20] MEDS: CITALOPRAM HYDROBROMIDE 20 MG TAB PO SCH (06:19)
[2019-10-20] MEDS: DIGOXIN 125 MCG TAB PO SCH (06:19)
[2019-10-20] MEDS: MIDODRINE 5 MG TAB PO SCH ×2 (06:19→16:51)
[2019-10-20] MEDS: SODIUM CHLORIDE 0.9% 1,000 ML IV SCH (06:20)
[2019-10-20 06:22] LABS: Anisocytosis Marked; HCT 22.6 % (34.0-46.0); Hypochromasia Slight; MCH 32.7 pg (25.0-35.0); MCHC 32.2 g/dL (31.0-37.0); MCV 101.6 fL (80.0-100.0); Macrocytosis Marked; Mean Platelet Volume 11.8; Poikilocytosis Slight; RBC 2.23 m/uL (3.80-5.40); RDW 24.2 % (11.5-15.5)
[2019-10-20 06:33] LABS: Platelet Count 8 k/uL (150-450)
[2019-10-20 06:35] LABS: HGB 7.3 gm/dL (11.4-16.0)
[2019-10-20 06:36] LABS: Albumin 2.8 g/dL (3.5-5.0); Calcium 6.5 mg/dL (8.4-10.2); Potassium 3.6 mmol/L (3.5-5.1); Total Bilirubin 1.2 mg/dL (0.2-1.3); Total Protein 5.7 g/dL (6.3-8.2); Uric Acid 1.3 mg/dL (3.7-7.4)
[2019-10-20 06:54] LABS: Band Neutrophils % 5 %; Metamyelocytes % 1 %; Neutrophils % (M) 24 %; Nucleated Red Blood Cells 8 /100 WBC (0-0); Total Cells Counted 100
[2019-10-20 06:55] LABS: Eosinophils # (M) 0.04 k/uL (0-0.7); Lymphocytes # (M) 1.89 k/uL (1.0-4.8); Metamyelocytes # (M) 0.04 k/uL (0); Monocytes # (M) 1.14 k/uL (0-1.0); WBC 4.4 k/uL (3.8-10.6)
[2019-10-20 06:56] LABS: Anisocytosis (M) Present; Polychromasia Present
[2019-10-20] MEDS: Acetaminophen-Codeine 300-30mg TAB PO PRN ×2 (08:27→15:19)
[2019-10-20] MEDS: MEGESTROL 400 MG/10 ML CUP PO SCH (08:27)
[2019-10-20] MEDS: DEXAMETHASONE 4 MG TAB PO SCH ×2 (08:27→20:09)
[2019-10-20] MEDS: METOPROLOL TARTRATE 50 MG TAB PO SCH ×3 (08:28→20:09)
[2019-10-20] MEDS: MULTIVITAMINS, THERA 1 EACH TAB PO SCH (08:28)
[2019-10-20] MEDS: FAMOTIDINE 20 MG TAB PO SCH (08:28)
[2019-10-20] MEDS ORDERED: POTASSIUM CHLORIDE ER 20 MEQ TAB.ER PO STA (09:20)
--- NOTE | 2019-10-20 09:21 | P.PN ---
Subjective Patient is seen in follow-up for acute kidney injury. Renal function is stable. She has been voiding. Oral intake is fair. No vomiting or diarrhea. No chest pain or shortness of breath. Vital signs are stable. General: The patient appeared well nourished and normally developed. HEENT: Head exam is unremarkable. Neck is without jugular venous distension. LUNGS: Lungs are clear to auscultation and percussion. Breath sounds decreased. HEART: Rate and Rhythm are regular. First and second heart sounds normal. No murmurs, rubs or gallops. ABDOMEN: Abdominal exam reveals normal bowel sounds. Non-tender and non- distended. No evidence of peritonitis. EXTREMITITES: No clubbing, cyanosis, or edema. Objective - Vital Signs Vital signs: Vital Signs Temp 97.5 F L 10/20/19 08:29 Pulse 76 10/20/19 08:29 Resp 18 10/20/19 08:29 BP 136/69 10/20/19 08:29 Pulse Ox 99 10/20/19 08:29 Intake & Output 10/19/19 10/20/19 10/20/19 18:59 06:59 18:59 Intake Total 790 303 60 Balance 790 303 60 Weight 78.5 kg Intake: Oral 480 60 Blood Product 310 303 Platelet Irr Pheresis 0 303 Acda1 Unit [id number] Rc Irr As1 Unit 310 [id number] Other: Voiding Method Toilet Toilet Incontinent Incontinent # Voids 1 1 # Bowel Movements 2 1 - Labs CBC & Chem 7: 10/20/19 05:40 10/20/19 05:40 Labs: Abnormal Lab Results - Last 24 Hours (Table) 10/17/19 10/19/19 10/19/19 Range/Units 11:04 06:16 12:07 RBC (3.80-5.40) m/uL Hgb (11.4-16.0) gm/dL Hct (34.0-46.0) % MCV (80.0-100.0) fL RDW (11.5-15.5) % Plt Count (150-450) k/uL Neutrophils # (Manual) (1.3-7.7) k/uL Monocytes # (Manual) (0-1.0) k/uL Metamyelocytes # (Man) (0) k/uL Nucleated RBCs (0-0) /100 WBC Macrocytosis Chloride (98-107) mmol/L Carbon Dioxide (22-30) mmol/L BUN (7-17) mg/dL Creatinine (0.52-1.04) mg/dL Glucose (74-99) mg/dL POC Glucose (mg/dL) 145 H (75-99) mg/dL Uric Acid (3.7-7.4) mg/dL Calcium (8.4-10.2) mg/dL Phosphorus 4.7 H (2.5-4.5) mg/dL Total Protein (6.3-8.2) g/dL Albumin (3.5-5.0) g/dL Crossmatch See Detail 10/19/19 10/19/19 10/20/19 Range/Units 16:47 20:31 05:40 RBC 2.23 L (3.80-5.40) m/uL Hgb 7.3 L D (11.4-16.0) gm/dL Hct 22.6 L (34.0-46.0) % MCV 101.6 H (80.0-100.0) fL RDW 24.2 H (11.5-15.5) % Plt Count 8 L* D (150-450) k/uL Neutrophils # (Manual) 1.20 L (1.3-7.7) k/uL Monocytes # (Manual) 1.14 H (0-1.0) k/uL Metamyelocytes # (Man) 0.04 H (0) k/uL Nucleated RBCs 8 H (0-0) /100 WBC Macrocytosis Marked A Chloride (98-107) mmol/L Carbon Dioxide (22-30) mmol/L BUN (7-17) mg/dL Creatinine (0.52-1.04) mg/dL Glucose (74-99) mg/dL POC Glucose (mg/dL) 147 H 160 H (75-99) mg/dL Uric Acid (3.7-7.4) mg/dL Calcium (8.4-10.2) mg/dL Phosphorus (2.5-4.5) mg/dL Total Protein (6.3-8.2) g/dL Albumin (3.5-5.0) g/dL Crossmatch 10/20/19 10/20/19 Range/Units 05:40 05:58 RBC (3.80-5.40) m/uL Hgb (11.4-16.0) gm/dL Hct (34.0-46.0) % MCV (80.0-100.0) fL RDW (11.5-15.5) % Plt Count (150-450) k/uL Neutrophils # (Manual) (1.3-7.7) k/uL Monocytes # (Manual) (0-1.0) k/uL Metamyelocytes # (Man) (0) k/uL Nucleated RBCs (0-0) /100 WBC Macrocytosis Chloride 111 H (98-107) mmol/L Carbon Dioxide 15 L (22-30) mmol/L BUN 47 H (7-17) mg/dL Creatinine 3.24 H (0.52-1.04) mg/dL Glucose 156 H (74-99) mg/dL POC Glucose (mg/dL) 164 H (75-99) mg/dL Uric Acid 1.3 L (3.7-7.4) mg/dL Calcium 6.5 L (8.4-10.2) mg/dL Phosphorus (2.5-4.5) mg/dL Total Protein 5.7 L (6.3-8.2) g/dL Albumin 2.8 L (3.5-5.0) g/dL Crossmatch Assessment and Plan Plan: Assessment: 1. Acute kidney injury secondary to ATN secondary to acute blood loss anemia and tumor lysis syndrome. Renal function stable. No significant hydronephrosis noted on kidney ultrasound. 2. Pancytopenia secondary to chemotherapy. Status post blood transfusion. Hemoglobin improved. 3. Metabolic acidosis secondary to acute kidney injury and IV fluids. 4. AML. 5. Hyperuricemia secondary to tumor lysis syndrome status post rasburicase. Better. 6. Hypokalemia from poor oral intake. Rule out magnesium deficiency. Plan: Discontinue normal saline and start bicarb drip at 75 mL an hour. Avoid nephrotoxins. Replace potassium. Check magnesium level. Repeat electrolytes in the morning.
[2019-10-20] MEDS: DEXTROSE 5% IN WATER 1,000 ML with SODIUM BICARB (1 MEQ/ML) 150 ML IV SCH (11:14)
[2019-10-20 11:40] LABS: Glucose,Whole Blood 210 mg/dL (75-99)
[2019-10-20 13:55] LABS: Platelet Count 6 k/uL (150-450)
--- NOTE | 2019-10-20 13:57 | PN ---
PROGRESS NOTE This lady has anemia and there was a question of some troponin elevation. She has multiple comorbid conditions, but echocardiogram revealed preserved systolic function. There is no evidence of any pulmonary hypertension. Her vital signs are stable. She is resting comfortably. Anemia workup is in progress. Cardiology was consulted mainly because of what seems to be an elevated troponin, but the pattern of troponin rise does not suggest myocardial injury. Echo revealed preserved systolic function and patient does not have any chest discomfort. Her vital signs are stable. Blood pressure is 130/70, pulse rate is 70. No JVD. S1-S2 heard normally. Short systolic murmur is audible. Lungs are clear. Abdomen and lower extremity exam is unchanged. Anemia workup is in progress. From a cardiac standpoint, no other intervention necessary. We will see her p.r.n. MMODL / IJN: [id number] /
--- NOTE | 2019-10-20 13:58 | P.PN ---
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 Patient also has a known history of hypertension, hyperlipidemia, and diabetes mellitus. On 10/18/2019 patient's alert and oriented resting comfortably in bed. Discussed case with oncology services. Patient got 1 unit PRBCs yesterday 1 unit of platelets ordered for today per oncology. Patient started on Rocephin for UTI. Infectious disease services have been consulted. Creatinine improving to 3.09 bun 47. Nephrology services are following. At this time patient denies chest pain or shortness of breath. Patient denies nausea vomiting diarrhea. Patient denies any urinary burning or frequency On 10/19/2019 patient's alert and oriented resting comfortably bed. Hemoglobin 5.7 platelets 5. Per Oncology patient will receive 1 unit PRBCs and 1 unit platelets. Her nursing signs of bleeding patient had dark stool with bowel movement.She remains on Rocephin for urinary tract infection. Dr. Estevez following. Cardiology services have been consulted for abnormal troponin. At this time patient denies chest pain or shortness of breath. Patient denies any urinary burning or frequency. Patient denies nausea vomiting or diarrhea. On 10/20/2019 patient was seen and examined on the medical floor she is alert and oriented 3 in no apparent distress she denies any pain or discomfort at this time there is no rectal bleeding, hemoglobin still low at 7.3 platelet count 8, patient is being evaluated by oncology. There is no fever or chills no headache or dizziness no chest pain no shortness of breath no cough no nausea or vomiting no abdominal pain no diarrhea no burning with urination no frequency or urgency and no hematuria Objective - Vital Signs Vital signs: Vital Signs Temp 97.5 F L 10/20/19 08:29 Pulse 68 10/20/19 12:00 Resp 18 10/20/19 12:00 BP 124/69 10/20/19 12:00 Pulse Ox 99 10/20/19 12:00 Intake & Output 10/19/19 10/20/19 10/20/19 18:59 06:59 18:59 Intake Total 790 303 60 Output Total 700 Balance 790 303 -640 Weight 78.5 kg Intake: Oral 480 60 Blood Product 310 303 Platelet Irr Pheresis 0 303 Acda1 Unit [id number] Rc Irr As1 Unit 310 [id number] Output: Urine 700 Other: Voiding Method Toilet Toilet Bedpan Incontinent Incontinent Incontinent # Voids 1 1 # Bowel Movements 2 1 - Exam In general patient is alert and oriented 3 in no apparent distress HEENT head normocephalic and atraumatic Neck is supple no JVD no goiter no lymphadenopathy Chest exam reveals a few scattered rhonchi no wheezing Cardiac exam reveals regular heart sounds no gallops no murmurs Abdomen is soft nontender no organomegaly Extremity exam reveals no edema no cyanosis or clubbing Neurological examination reveals no gross focal deficit - Labs CBC & Chem 7: 10/20/19 05:40 10/20/19 05:40 Labs: Abnormal Lab Results - Last 24 Hours (Table) 10/17/19 10/17/19 10/19/19 Range/Units 11:04 11:04 16:47 RBC (3.80-5.40) m/uL Hgb (11.4-16.0) gm/dL Hct (34.0-46.0) % MCV (80.0-100.0) fL RDW (11.5-15.5) % Plt Count (150-450) k/uL Neutrophils # (Manual) (1.3-7.7) k/uL Monocytes # (Manual) (0-1.0) k/uL Metamyelocytes # (Man) (0) k/uL Nucleated RBCs (0-0) /100 WBC Macrocytosis Haptoglobin 234.0 H (31.2-198.0) mg/dL Chloride (98-107) mmol/L Carbon Dioxide (22-30) mmol/L BUN (7-17) mg/dL Creatinine (0.52-1.04) mg/dL Glucose (74-99) mg/dL POC Glucose (mg/dL) 147 H (75-99) mg/dL Uric Acid (3.7-7.4) mg/dL Calcium (8.4-10.2) mg/dL Total Protein (6.3-8.2) g/dL Albumin (3.5-5.0) g/dL Crossmatch See Detail 10/19/19 10/20/19 10/20/19 Range/Units 20:31 05:40 05:40 RBC 2.23 L (3.80-5.40) m/uL Hgb 7.3 L D (11.4-16.0) gm/dL Hct 22.6 L (34.0-46.0) % MCV 101.6 H (80.0-100.0) fL RDW 24.2 H (11.5-15.5) % Plt Count 8 L* D (150-450) k/uL Neutrophils # (Manual) 1.20 L (1.3-7.7) k/uL Monocytes # (Manual) 1.14 H (0-1.0) k/uL Metamyelocytes # (Man) 0.04 H (0) k/uL Nucleated RBCs 8 H (0-0) /100 WBC Macrocytosis Marked A Haptoglobin (31.2-198.0) mg/dL Chloride 111 H (98-107) mmol/L Carbon Dioxide 15 L (22-30) mmol/L BUN 47 H (7-17) mg/dL Creatinine 3.24 H (0.52-1.04) mg/dL Glucose 156 H (74-99) mg/dL POC Glucose (mg/dL) 160 H (75-99) mg/dL Uric Acid 1.3 L (3.7-7.4) mg/dL Calcium 6.5 L (8.4-10.2) mg/dL Total Protein 5.7 L (6.3-8.2) g/dL Albumin 2.8 L (3.5-5.0) g/dL Crossmatch 10/20/19 10/20/19 Range/Units 05:58 11:38 RBC (3.80-5.40) m/uL Hgb (11.4-16.0) gm/dL Hct (34.0-46.0) % MCV (80.0-100.0) fL RDW (11.5-15.5) % Plt Count (150-450) k/uL Neutrophils # (Manual) (1.3-7.7) k/uL Monocytes # (Manual) (0-1.0) k/uL Metamyelocytes # (Man) (0) k/uL Nucleated RBCs (0-0) /100 WBC Macrocytosis Haptoglobin (31.2-198.0) mg/dL Chloride (98-107) mmol/L Carbon Dioxide (22-30) mmol/L BUN (7-17) mg/dL Creatinine (0.52-1.04) mg/dL Glucose (74-99) mg/dL POC Glucose (mg/dL) 164 H 210 H (75-99) mg/dL Uric Acid (3.7-7.4) mg/dL Calcium (8.4-10.2) mg/dL Total Protein (6.3-8.2) g/dL Albumin (3.5-5.0) g/dL Crossmatch Assessment and Plan Plan: #1 generalized weakness likely related to acute on chronic anemia. Oncology services are following. Patient received 1 unit PRBCs. 1 unit of platelets have been ordered per oncology service. 5.7. Additional unit of PRBCs has been ordered per oncology #2 recent admission with gastrointestinal bleeding, at this time no mara blood from the rectum however stool Hemoccult was positive #3 underlying history of AML last chemotherapy in June 2019 oncology consultation was requested. #4 acute kidney injury secondary to hypovolemic hypotension. elevated BUN and creatinine at 60 and 3.72 last creatinine on September 13 was 0.82 . Creatinine improving to 3.09 and bun 47. nephrology services are following,. Ultrasound of kidney renal and bladder has been ordered per nephrology #5 elevated troponin level patient denies any chest pain, this could be related to abnormal kidney function. Cardiology services are following. 2-D echo has been ordered. Likely secondary to edema and abnormal renal function #6 evidence of UTI, will obtain urine culture and start Rocephin. Culture ordered. Infectious disease consulted #7 underlying history of hypertension will resume metoprolol #8 underlying history of hyperlipidemia #9 underlying history of diabetes mellitus. #10. Acute on chronic thrombocytopenia secondary to chemotherapy and leukemia. 1 unit of platelets has been ordered per oncology services #11. Tumor lysis syndrome following antineoplastic chemotherapy. Uric acid 17. Allopurinol ordered per oncology. Elitek has been ordered per oncology DVT prophylaxis SCDs. GI prophylaxis Pepcid Oncology, nephrology, cardiology and infectious disease services are following. Urine culture ordered. Normal saline at 75 PT OT consulted
[2019-10-20 16:35] LABS: Glucose,Whole Blood 219 mg/dL (75-99)
--- NOTE | 2019-10-20 19:17 | P.PN ---
Subjective Progress Note Date: 10/20/19 Principal diagnosis: Anemia Hgb 7 today. Plt remain 8. Cr remains elevated at 3. Objective - Vital Signs Vital signs: Vital Signs Temp 98 F 10/20/19 16:00 Pulse 71 10/20/19 16:00 Resp 18 10/20/19 16:00 BP 133/70 10/20/19 16:00 Pulse Ox 99 10/20/19 16:00 Intake & Output 10/19/19 10/20/19 10/20/19 18:59 06:59 18:59 Intake Total 790 303 60 Output Total 1500 Balance 790 303 -1440 Weight 78.5 kg Intake: Oral 480 60 Blood Product 310 303 Platelet Irr Pheresis 0 303 Acda1 Unit [id number] Rc Irr As1 Unit 310 [id number] Output: Urine 1500 Other: Voiding Method Toilet Toilet Bedpan Incontinent Incontinent Incontinent # Voids 1 1 1 # Bowel Movements 2 1 1 - Exam Gen.: In no acute distress. HEENT: Conjunctival pallor. No scleral icterus. Mucosa moist. Neck: Neck supple. Lymph: No supra clavicular or cervical lymphadenopathy. Lungs: CTAB without wheezing or rhonchi. Heart: Regular rate. No lower extremity edema. Abdomen: Soft, nontender, nondistended, with positive bowel sounds. MSK: 4/4 strength in all 4 extremities. Neuro: Alert and oriented 3. No obvious gross neurologic deficits. Skin: No jaundice or rash. Psych: Appropriate affect. - Labs CBC & Chem 7: 10/20/19 05:40 10/20/19 05:40 Labs: Abnormal Lab Results - Last 24 Hours (Table) 10/17/19 10/17/19 10/18/19 Range/Units 11:04 11:04 06:18 RBC (3.80-5.40) m/uL Hgb (11.4-16.0) gm/dL Hct (34.0-46.0) % MCV (80.0-100.0) fL RDW (11.5-15.5) % Plt Count 6 L* D (150-450) k/uL Neutrophils # (Manual) (1.3-7.7) k/uL Monocytes # (Manual) (0-1.0) k/uL Metamyelocytes # (Man) (0) k/uL Nucleated RBCs (0-0) /100 WBC Macrocytosis Haptoglobin 234.0 H (31.2-198.0) mg/dL Chloride (98-107) mmol/L Carbon Dioxide (22-30) mmol/L BUN (7-17) mg/dL Creatinine (0.52-1.04) mg/dL Glucose (74-99) mg/dL POC Glucose (mg/dL) (75-99) mg/dL Uric Acid (3.7-7.4) mg/dL Calcium (8.4-10.2) mg/dL Total Protein (6.3-8.2) g/dL Albumin (3.5-5.0) g/dL Crossmatch See Detail 10/19/19 10/20/19 10/20/19 Range/Units 20:31 05:40 05:40 RBC 2.23 L (3.80-5.40) m/uL Hgb 7.3 L D (11.4-16.0) gm/dL Hct 22.6 L (34.0-46.0) % MCV 101.6 H (80.0-100.0) fL RDW 24.2 H (11.5-15.5) % Plt Count 8 L* D (150-450) k/uL Neutrophils # (Manual) 1.20 L (1.3-7.7) k/uL Monocytes # (Manual) 1.14 H (0-1.0) k/uL Metamyelocytes # (Man) 0.04 H (0) k/uL Nucleated RBCs 8 H (0-0) /100 WBC Macrocytosis Marked A Haptoglobin (31.2-198.0) mg/dL Chloride 111 H (98-107) mmol/L Carbon Dioxide 15 L (22-30) mmol/L BUN 47 H (7-17) mg/dL Creatinine 3.24 H (0.52-1.04) mg/dL Glucose 156 H (74-99) mg/dL POC Glucose (mg/dL) 160 H (75-99) mg/dL Uric Acid 1.3 L (3.7-7.4) mg/dL Calcium 6.5 L (8.4-10.2) mg/dL Total Protein 5.7 L (6.3-8.2) g/dL Albumin 2.8 L (3.5-5.0) g/dL Crossmatch 10/20/19 10/20/19 10/20/19 Range/Units 05:58 11:38 16:34 RBC (3.80-5.40) m/uL Hgb (11.4-16.0) gm/dL Hct (34.0-46.0) % MCV (80.0-100.0) fL RDW (11.5-15.5) % Plt Count (150-450) k/uL Neutrophils # (Manual) (1.3-7.7) k/uL Monocytes # (Manual) (0-1.0) k/uL Metamyelocytes # (Man) (0) k/uL Nucleated RBCs (0-0) /100 WBC Macrocytosis Haptoglobin (31.2-198.0) mg/dL Chloride (98-107) mmol/L Carbon Dioxide (22-30) mmol/L BUN (7-17) mg/dL Creatinine (0.52-1.04) mg/dL Glucose (74-99) mg/dL POC Glucose (mg/dL) 164 H 210 H 219 H (75-99) mg/dL Uric Acid (3.7-7.4) mg/dL Calcium (8.4-10.2) mg/dL Total Protein (6.3-8.2) g/dL Albumin (3.5-5.0) g/dL Crossmatch Assessment and Plan Assessment: 1. Acute on chronic anemia, acute decrease likely due to GI bleed, chronic anemia due to chemotherapy as well as leukemia 2. Acute on chronic thrombocytopenia, acute component consumptive from likely bleed, chronic due to chemotherapy and leukemia 3. 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 BLACK, likely due to severe anemia, cannot rule out differentiation syndrome. Unlikely to be due to TLS despite elevated UA as she did not have high disease burden when this developed and has been on therapy for a while. 4. Elevated troponin 5. Hyperbilirubinemia 6. GI bleed Plan: Ms. Hernandez is a very pleasant 64-year-old female with multiple comorbidities including recent history of AMML status post recurrence after 7+3 induction, IDH2 positive, has been on IDHIFA, as well as recurrent admissions recently for GI bleed, here for weakness due to acute on chronic anemia. Her FOBT is positive. Likely she is having recurrent GI bleeds causing this acute on chronic anemia. Her baseline anemia, thrombocytopenia, and leukocytosis which is currently normal is from her underlying AMML. Acute on chronic thrombocytopenia is due to consumption from bleeding. Also with persistent BLACK, Cr 3.7 down to 3 however not improving further. Likely due to severe anemia however cannot rule out differentiation syndrome. Her IDHIFA has been on hold for the past week or so. Continue decadron treatment in case it is due to differentiation syndrome. And continue to hold IDHIFA for now. Doubt her BLACK is due to TLS as she has been on treatment for her AMML for a while and she does not appear to have had a large tumor burden recently to cause TLS. Uric acid could also be elevated as a consequence of her BLACK. B12, folate, iron panel, and hemolysis work up negative. Continue decadron and supportive transfusion to maintain Hgb >7 and plt >15. Nephrology on board. ?GI consult? Discussed with pt and family at bedside and they are agreeable. All questions answered.
--- NOTE | 2019-10-20 22:50 | PN ---
PROGRESS NOTE DATE OF SERVICE: 10/20/2019 REASON FOR FOLLOWUP: Urinary tract infection. INTERVAL HISTORY: The patient is currently afebrile. The patient has been breathing comfortably. Denies having any chest pain or cough. No nausea, no vomiting. No abdominal pain, no diarrhea. PHYSICAL EXAMINATION: Blood pressure 128/79 with a pulse of 75, temperature 97.8 she is 98% on room air. General description is an elderly female lying in bed in no distress. Respiratory system: Unlabored breathing, clear to auscultation anteriorly. Heart S1, S2. Regular rate and rhythm. Abdomen: Soft, no tenderness. LABS: Hemoglobin 11.1, white count 4.4 with a BUN of 47, creatinine 3.24. Urine has been negative so far. DIAGNOSTIC IMPRESSION AND PLAN: Patient admitted to the hospital with weakness in this patient who did have evidence of dehydration and positive UA with concern for UTI. So far urine culture has been negative. Currently on Rocephin that can be discontinued on discharge. Monitor clinical course closely. MMODL / IJN: [id number] / ZANDER
[2019-10-21] MEDS: SALT AND SODA MOUTHWASH 1,000 ML PO SCH ×5 (02:49→23:06)
[2019-10-21] MEDS: DEXTROSE 5% IN WATER 1,000 ML with SODIUM BICARB (1 MEQ/ML) 150 ML IV SCH (02:49)
[2019-10-21 05:57] LABS: Glucose,Whole Blood 186 mg/dL (75-99)
[2019-10-21] MEDS: DIGOXIN 125 MCG TAB PO SCH (06:01)
[2019-10-21] MEDS: MIDODRINE 5 MG TAB PO SCH ×2 (06:01→17:08)
[2019-10-21] MEDS: CITALOPRAM HYDROBROMIDE 20 MG TAB PO SCH (06:01)
[2019-10-21] MEDS: Acetaminophen-Codeine 300-30mg TAB PO PRN ×2 (06:10→20:14)
[2019-10-21 07:20] LABS: Anisocytosis Moderate; HCT 22.9 % (34.0-46.0); HGB 7.7 gm/dL (11.4-16.0); MCH 32.8 pg (25.0-35.0); MCHC 33.4 g/dL (31.0-37.0); MCV 98.2 fL (80.0-100.0); Macrocytosis Moderate; Mean Platelet Volume 10.9; Poikilocytosis Slight; RBC 2.34 m/uL (3.80-5.40); RDW 23.8 % (11.5-15.5)
[2019-10-21 07:50] LABS: Albumin 2.8 g/dL (3.5-5.0); Magnesium 1.4 mg/dL (1.6-2.3); Platelet Count 7 k/uL (150-450); Potassium 3.3 mmol/L (3.5-5.1); Total Bilirubin 1.1 mg/dL (0.2-1.3); Total Protein 5.6 g/dL (6.3-8.2); Uric Acid 2.4 mg/dL (3.7-7.4)
[2019-10-21 08:26] LABS: Calcium 6.3 mg/dL (8.4-10.2)
[2019-10-21] MEDS ORDERED: Magnesium Replacement Protocol 1 EACH MISC MISCELLANE PRN (09:14)
--- NOTE | 2019-10-21 10:05 | P.PN ---
Subjective Patient is seen in follow-up for acute kidney injury. Renal function is improving. She has been voiding. Oral intake is fair. No vomiting or jeff rrhea. No chest pain or shortness of breath. Vital signs are stable. General: The patient appeared well nourished and normally developed. HEENT: Head exam is unremarkable. Neck is without jugular venous distension. LUNGS: Lungs are clear to auscultation and percussion. Breath sounds decreased. HEART: Rate and Rhythm are regular. First and second heart sounds normal. No murmurs, rubs or gallops. ABDOMEN: Abdominal exam reveals normal bowel sounds. Non-tender and non- distended. No evidence of peritonitis. EXTREMITITES: No clubbing, cyanosis, or edema. Objective - Vital Signs Vital signs: Vital Signs Temp 97.6 F 10/21/19 03:24 Pulse 75 10/21/19 03:24 Resp 18 10/21/19 03:24 BP 132/70 10/21/19 03:24 Pulse Ox 98 10/21/19 03:24 Intake & Output 10/20/19 10/21/19 10/21/19 18:59 06:59 18:59 Intake Total 120 20 Output Total 1500 1200 200 Balance -1380 -1200 -180 Weight 77.5 kg Intake: Oral 120 20 Output: Urine 1500 1200 200 Other: Voiding Method Bedpan Bedpan Incontinent Incontinent # Voids 1 # Bowel Movements 1 - Labs CBC & Chem 7: 10/21/19 05:33 10/21/19 05:33 Labs: Abnormal Lab Results - Last 24 Hours (Table) 10/17/19 10/18/19 10/20/19 Range/Units 11:04 06:18 11:38 WBC (3.8-10.6) k/uL RBC (3.80-5.40) m/uL Hgb (11.4-16.0) gm/dL Hct (34.0-46.0) % RDW (11.5-15.5) % Plt Count 6 L* D (150-450) k/uL Haptoglobin 234.0 H (31.2-198.0) mg/dL Potassium (3.5-5.1) mmol/L BUN (7-17) mg/dL Creatinine (0.52-1.04) mg/dL Glucose (74-99) mg/dL POC Glucose (mg/dL) 210 H (75-99) mg/dL Uric Acid (3.7-7.4) mg/dL Calcium (8.4-10.2) mg/dL Magnesium (1.6-2.3) mg/dL Total Protein (6.3-8.2) g/dL Albumin (3.5-5.0) g/dL 10/20/19 10/21/19 10/21/19 Range/Units 16:34 05:33 05:33 WBC 1.7 L (3.8-10.6) k/uL RBC 2.34 L (3.80-5.40) m/uL Hgb 7.7 L (11.4-16.0) gm/dL Hct 22.9 L (34.0-46.0) % RDW 23.8 H (11.5-15.5) % Plt Count 7 L* (150-450) k/uL Haptoglobin (31.2-198.0) mg/dL Potassium 3.3 L (3.5-5.1) mmol/L BUN 43 H (7-17) mg/dL Creatinine 2.38 H (0.52-1.04) mg/dL Glucose 169 H (74-99) mg/dL POC Glucose (mg/dL) 219 H (75-99) mg/dL Uric Acid 2.4 L (3.7-7.4) mg/dL Calcium 6.3 L* (8.4-10.2) mg/dL Magnesium 1.4 L (1.6-2.3) mg/dL Total Protein 5.6 L (6.3-8.2) g/dL Albumin 2.8 L (3.5-5.0) g/dL 10/21/19 Range/Units 05:56 WBC (3.8-10.6) k/uL RBC (3.80-5.40) m/uL Hgb (11.4-16.0) gm/dL Hct (34.0-46.0) % RDW (11.5-15.5) % Plt Count (150-450) k/uL Haptoglobin (31.2-198.0) mg/dL Potassium (3.5-5.1) mmol/L BUN (7-17) mg/dL Creatinine (0.52-1.04) mg/dL Glucose (74-99) mg/dL POC Glucose (mg/dL) 186 H (75-99) mg/dL Uric Acid (3.7-7.4) mg/dL Calcium (8.4-10.2) mg/dL Magnesium (1.6-2.3) mg/dL Total Protein (6.3-8.2) g/dL Albumin (3.5-5.0) g/dL Assessment and Plan Plan: Assessment: 1. Acute kidney injury secondary to ATN secondary to acute blood loss anemia and tumor lysis syndrome. Renal function is improving. Creatinine 2.38 today. No significant hydronephrosis noted on kidney ultrasound. 2. Pancytopenia secondary to chemotherapy. Status post blood transfusion. Hemoglobin improved. 3. Metabolic acidosis secondary to acute kidney injury and IV fluids. Better. 4. AML. 5. Hyperuricemia secondary to tumor lysis syndrome status post rasburicase. Better. 6. Hypokalemia secondary to intracellular shifting from IV bicarb. 7. Hypomagnesemia from poor oral intake. 8. Hypocalcemia secondary to acute kidney injury and tumor lysis. Corrected calcium 7.3. Plan: Discontinue bicarbonate drip. Start normal saline at 75 mL an hour. Add oral sodium bicarbonate. Avoid nephrotoxins. Replace potassium. 40 mEq today. Magnesium also being replaced. 1 g IV calcium gluconate today. Repeat electrolytes in the morning.
--- NOTE | 2019-10-21 10:12 | P.PN ---
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 Patient also has a known history of hypertension, hyperlipidemia, and diabetes mellitus. On 10/18/2019 patient's alert and oriented resting comfortably in bed. Discussed case with oncology services. Patient got 1 unit PRBCs yesterday 1 unit of platelets ordered for today per oncology. Patient started on Rocephin for UTI. Infectious disease services have been consulted. Creatinine improving to 3.09 bun 47. Nephrology services are following. At this time patient denies chest pain or shortness of breath. Patient denies nausea vomiting diarrhea. Patient denies any urinary burning or frequency On 10/19/2019 patient's alert and oriented resting comfortably bed. Hemoglobin 5.7 platelets 5. Per Oncology patient will receive 1 unit PRBCs and 1 unit platelets. Her nursing signs of bleeding patient had dark stool with bowel movement.She remains on Rocephin for urinary tract infection. Dr. Estevez following. Cardiology services have been consulted for abnormal troponin. At this time patient denies chest pain or shortness of breath. Patient denies any urinary burning or frequency. Patient denies nausea vomiting or diarrhea. On 10/20/2019 patient was seen and examined on the medical floor she is alert and oriented 3 in no apparent distress she denies any pain or discomfort at this time there is no rectal bleeding, hemoglobin still low at 7.3 platelet count 8, patient is being evaluated by oncology. There is no fever or chills no headache or dizziness no chest pain no shortness of breath no cough no nausea or vomiting no abdominal pain no diarrhea no burning with urination no frequency or urgency and no hematuria On 10/21/2019 patient was seen and examined on the telemetry floor she is feeling better less fatigued today there is no fever or chills no headache or dizziness no chest pain no shortness of breath no cough no nausea or vomiting no abdominal pain no diarrhea no burning with urination no frequency or urgency and no hematuria Objective - Vital Signs Vital signs: Vital Signs Temp 97.6 F 10/21/19 03:24 Pulse 75 10/21/19 03:24 Resp 18 10/21/19 03:24 BP 132/70 10/21/19 03:24 Pulse Ox 98 10/21/19 03:24 Intake & Output 10/20/19 10/21/19 10/21/19 18:59 06:59 18:59 Intake Total 120 Output Total 1500 1200 Balance -1380 -1200 Weight 77.5 kg Intake: Oral 120 Output: Urine 1500 1200 Other: Voiding Method Bedpan Bedpan Incontinent Incontinent # Voids 1 # Bowel Movements 1 - Exam In general patient is alert and oriented 3 in no apparent distress HEENT head normocephalic and atraumatic Neck is supple no JVD no goiter no lymphadenopathy Chest exam reveals a few scattered rhonchi no wheezing Cardiac exam reveals regular heart sounds no gallops no murmurs Abdomen is soft nontender no organomegaly Extremity exam reveals no edema no cyanosis or clubbing Neurological examination reveals no gross focal deficit - Labs CBC & Chem 7: 10/21/19 05:33 10/21/19 05:33 Labs: Abnormal Lab Results - Last 24 Hours (Table) 10/17/19 10/18/19 10/20/19 Range/Units 11:04 06:18 11:38 Plt Count 6 L* D (150-450) k/uL Haptoglobin 234.0 H (31.2-198.0) mg/dL POC Glucose (mg/dL) 210 H (75-99) mg/dL 10/20/19 10/21/19 Range/Units 16:34 05:56 Plt Count (150-450) k/uL Haptoglobin (31.2-198.0) mg/dL POC Glucose (mg/dL) 219 H 186 H (75-99) mg/dL Assessment and Plan Plan: #1 generalized weakness likely related to acute on chronic anemia. Oncology services are following. Patient received 1 unit PRBCs. 1 unit of platelets have been ordered per oncology service. 5.7. Additional unit of PRBCs has been ordered per oncology #2 recent admission with gastrointestinal bleeding, at this time no mara blood from the rectum however stool Hemoccult was positive #3 underlying history of AML last chemotherapy in June 2019 oncology consultation was requested. #4 acute kidney injury secondary to hypovolemic hypotension. elevated BUN and creatinine at 60 and 3.72 last creatinine on September 13 was 0.82 . Creatinine improving to 3.09 and bun 47. nephrology services are following,. Ultrasound of kidney renal and bladder has been ordered per nephrology #5 elevated troponin level patient denies any chest pain, this could be related to abnormal kidney function. Cardiology services are following. 2-D echo has been ordered. Likely secondary to edema and abnormal renal function #6 evidence of UTI, will obtain urine culture and start Rocephin. Culture ordered. Infectious disease consulted #7 underlying history of hypertension will resume metoprolol #8 underlying history of hyperlipidemia #9 underlying history of diabetes mellitus. #10. Acute on chronic thrombocytopenia secondary to chemotherapy and leukemia. 1 unit of platelets has been ordered per oncology services #11. Tumor lysis syndrome following antineoplastic chemotherapy. Uric acid 17. Allopurinol ordered per oncology. Elitek has been ordered per oncology #12 electrolyte imbalance with hypokalemia, hypocalcemia, and hypomagnesemia correcting DVT prophylaxis SCDs. GI prophylaxis Pepcid Oncology, nephrology, cardiology and infectious disease services are following. Urine culture ordered. Normal saline at 75 PT OT consulted
[2019-10-21] MEDS: MULTIVITAMINS, THERA 1 EACH TAB PO SCH (10:17)
[2019-10-21] MEDS: SODIUM BICARBONATE TAB 650 MG TAB PO SCH ×2 (10:17→20:14)
[2019-10-21] MEDS: FAMOTIDINE 20 MG TAB PO SCH (10:17)
[2019-10-21] MEDS: DEXAMETHASONE 4 MG TAB PO SCH ×2 (10:18→20:14)
[2019-10-21] MEDS: METOPROLOL TARTRATE 50 MG TAB PO SCH ×3 (10:18→20:14)
[2019-10-21] MEDS: MEGESTROL 400 MG/10 ML CUP PO SCH (10:18)
[2019-10-21] MEDS: POTASSIUM CHLORIDE ER 20 MEQ TAB.ER PO SCH (10:18)
[2019-10-21] MEDS: SODIUM CHLORIDE 0.9% 1,000 ML IV SCH ×2 (10:20→23:05)
[2019-10-21] MEDS ORDERED: CALCIUM GLUCONATE 1 GM in SODIUM CHLORIDE 0.9% 100 ML IVPB ONE (10:30)
[2019-10-21 11:36] LABS: Glucose,Whole Blood 174 mg/dL (75-99)
[2019-10-21] MEDS: MAGNESIUM SULFATE-D5W PMX 1 GM in DEXTROSE/WATER 1 100ML.BAG IVPB SCH ×3 (13:00→17:08)
[2019-10-21 15:08] LABS: Band Neutrophils % 1 %; Lymphocytes # (M) 0.23 k/uL (1.0-4.8); Metamyelocytes # (M) 0.02 k/uL (0); Metamyelocytes % 1 %; Monocytes # (M) 0.39 k/uL (0-1.0); Neutrophils % (M) 57 %; Nucleated Red Blood Cells 17 /100 WBC (0-0); Total Cells Counted 100; WBC 1.5 k/uL (3.8-10.6)
[2019-10-21 15:10] LABS: Polychromasia Present
[2019-10-21 16:34] LABS: Glucose,Whole Blood 195 mg/dL (75-99)
[2019-10-21 20:49] LABS: Glucose,Whole Blood 207 mg/dL (75-99)
--- NOTE | 2019-10-21 22:38 | PN ---
PROGRESS NOTE DATE OF SERVICE: 10/21/2019 REASON FOLLOWUP: Urinary tract infection. INTERVAL HISTORY: The patient is currently afebrile. Patient is breathing comfortably. The patient denies having any chest pain. No shortness of breath or cough. No nausea, vomiting. No abdominal pain, no diarrhea. PHYSICAL EXAMINATION: Blood pressure 137/72 with a pulse of 69, temperature 97.6, he is 100% on room air. General description is an elderly female lying in bed in no distress. Respiratory system: Unlabored breathing, clear to auscultation anteriorly. Heart S1, S2. Regular rate and rhythm. Abdomen soft, no tenderness. LABS: Hemoglobin 7.7, wbc 1.5, BUN of 43, creatinine 2.38. Urine cultures have been negative. DIAGNOSTIC IMPRESSION AND PLAN: Patient presented to the hospital with generalized weakness which is likely multifactorial. The patient did have a component of dehydration anemia and possible UTI. She did have a positive UA, culture has been negative and has received about 5 days of antibiotic, should be more than enough for mild urinary tract infection. Recommended discontinue Rocephin, monitor the patient closely off antibiotic therapy. MMODL / IJN: [id number] / ZANDER
[2019-10-22] MEDS: SALT AND SODA MOUTHWASH 1,000 ML PO SCH ×5 (05:21→23:14)
[2019-10-22] MEDS: MIDODRINE 5 MG TAB PO SCH ×2 (06:09→17:25)
[2019-10-22] MEDS: DIGOXIN 125 MCG TAB PO SCH (06:09)
[2019-10-22] MEDS: CITALOPRAM HYDROBROMIDE 20 MG TAB PO SCH (06:09)
[2019-10-22] MEDS: CALCIUM CARB-VIT D 500MG-200UN 1 EACH TAB PO SCH ×2 (06:09→17:26)
[2019-10-22 06:11] LABS: Glucose,Whole Blood 175 mg/dL (75-99)
[2019-10-22 06:35] LABS: Anisocytosis Moderate; HCT 20.7 % (34.0-46.0); HGB 7.1 gm/dL (11.4-16.0); Hypochromasia Slight; MCH 34.7 pg (25.0-35.0); MCHC 34.3 g/dL (31.0-37.0); MCV 101.1 fL (80.0-100.0); Macrocytosis Marked; Mean Platelet Volume 12.8; RBC 2.05 m/uL (3.80-5.40); RDW 23.5 % (11.5-15.5)
[2019-10-22 06:42] LABS: WBC 0.9 k/uL (3.8-10.6)
[2019-10-22 06:43] LABS: Platelet Count 5 k/uL (150-450)
[2019-10-22 07:22] LABS: Albumin 2.7 g/dL (3.5-5.0); Magnesium 1.9 mg/dL (1.6-2.3); Potassium 3.2 mmol/L (3.5-5.1); Total Bilirubin 1.4 mg/dL (0.2-1.3); Total Protein 5.3 g/dL (6.3-8.2)
[2019-10-22 07:46] LABS: Calcium 6.2 mg/dL (8.4-10.2)
[2019-10-22 08:10] LABS: Polychromasia Present
[2019-10-22 08:57] LABS: Potassium 3.3 mmol/L (3.5-5.1)
[2019-10-22 09:16] LABS: Calcium 6.3 mg/dL (8.4-10.2)
--- NOTE | 2019-10-22 09:23 | P.PN ---
Subjective Patient is seen in follow-up for acute kidney injury. Renal function is improving. She has been voiding. Oral intake is fair. No vomiting or jeff rrhea. No chest pain or shortness of breath. Vital signs are stable. General: The patient appeared well nourished and normally developed. HEENT: Head exam is unremarkable. Neck is without jugular venous distension. LUNGS: Lungs are clear to auscultation and percussion. Breath sounds decreased. HEART: Rate and Rhythm are regular. First and second heart sounds normal. No murmurs, rubs or gallops. ABDOMEN: Abdominal exam reveals normal bowel sounds. Non-tender and non- distended. No evidence of peritonitis. EXTREMITITES: No clubbing, cyanosis, or edema. Objective - Vital Signs Vital signs: Vital Signs Temp 98 F 10/22/19 03:08 Pulse 73 10/22/19 03:08 Resp 16 10/22/19 03:08 BP 139/79 10/22/19 03:08 Pulse Ox 99 10/22/19 03:08 Intake & Output 10/21/19 10/22/19 10/22/19 18:59 06:59 18:59 Intake Total 80 75 Output Total 1000 550 Balance -920 -475 Weight 71.5 kg Intake: Intake, IV Titration 75 Amount Sodium Chloride 0.9% 1, 75 000 ml @ 75 mls/hr IV . [id number] [facility] Rx#:[id number] Oral 80 Output: Urine 1000 550 Other: Voiding Method Bedpan Incontinent # Voids 1 - Labs CBC & Chem 7: 10/22/19 05:40 10/22/19 08:30 Labs: Abnormal Lab Results - Last 24 Hours (Table) 10/21/19 10/21/19 10/21/19 Range/Units 05:33 11:35 16:33 WBC 1.5 L (3.8-10.6) k/uL RBC (3.80-5.40) m/uL Hgb (11.4-16.0) gm/dL Hct (34.0-46.0) % MCV (80.0-100.0) fL RDW (11.5-15.5) % Plt Count (150-450) k/uL Neutrophils # (Manual) 0.80 L (1.3-7.7) k/uL Lymphocytes # (Manual) 0.23 L (1.0-4.8) k/uL Metamyelocytes # (Man) 0.02 H (0) k/uL Nucleated RBCs 17 H (0-0) /100 WBC Macrocytosis Potassium (3.5-5.1) mmol/L BUN (7-17) mg/dL Creatinine (0.52-1.04) mg/dL Glucose (74-99) mg/dL POC Glucose (mg/dL) 174 H 195 H (75-99) mg/dL Calcium (8.4-10.2) mg/dL Total Bilirubin (0.2-1.3) mg/dL Total Protein (6.3-8.2) g/dL Albumin (3.5-5.0) g/dL 10/21/19 10/22/19 10/22/19 Range/Units 20:48 05:40 05:40 WBC 0.9 L* (3.8-10.6) k/uL RBC 2.05 L (3.80-5.40) m/uL Hgb 7.1 L (11.4-16.0) gm/dL Hct 20.7 L (34.0-46.0) % MCV 101.1 H (80.0-100.0) fL RDW 23.5 H (11.5-15.5) % Plt Count 5 L* (150-450) k/uL Neutrophils # (Manual) (1.3-7.7) k/uL Lymphocytes # (Manual) (1.0-4.8) k/uL Metamyelocytes # (Man) (0) k/uL Nucleated RBCs (0-0) /100 WBC Macrocytosis Marked A Potassium 3.2 L (3.5-5.1) mmol/L BUN 40 H (7-17) mg/dL Creatinine 1.61 H (0.52-1.04) mg/dL Glucose 166 H (74-99) mg/dL POC Glucose (mg/dL) 207 H (75-99) mg/dL Calcium 6.2 L* (8.4-10.2) mg/dL Total Bilirubin 1.4 H (0.2-1.3) mg/dL Total Protein 5.3 L (6.3-8.2) g/dL Albumin 2.7 L (3.5-5.0) g/dL 10/22/19 10/22/19 Range/Units 06:10 08:30 WBC (3.8-10.6) k/uL RBC (3.80-5.40) m/uL Hgb (11.4-16.0) gm/dL Hct (34.0-46.0) % MCV (80.0-100.0) fL RDW (11.5-15.5) % Plt Count (150-450) k/uL Neutrophils # (Manual) (1.3-7.7) k/uL Lymphocytes # (Manual) (1.0-4.8) k/uL Metamyelocytes # (Man) (0) k/uL Nucleated RBCs (0-0) /100 WBC Macrocytosis Potassium 3.3 L (3.5-5.1) mmol/L BUN 39 H (7-17) mg/dL Creatinine 1.56 H (0.52-1.04) mg/dL Glucose 168 H (74-99) mg/dL POC Glucose (mg/dL) 175 H (75-99) mg/dL Calcium 6.3 L* (8.4-10.2) mg/dL Total Bilirubin (0.2-1.3) mg/dL Total Protein (6.3-8.2) g/dL Albumin (3.5-5.0) g/dL Assessment and Plan Plan: Assessment: 1. Acute kidney injury secondary to ATN secondary to acute blood loss anemia and tumor lysis syndrome. Renal function is improving. Creatinine 1.61 today. No significant hydronephrosis noted on kidney ultrasound. 2. Pancytopenia secondary to chemotherapy. Status post blood transfusion. 3. Metabolic acidosis secondary to acute kidney injury and IV fluids. Better. 4. AML. 5. Hyperuricemia secondary to tumor lysis syndrome status post rasburicase. Better. 6. Hypokalemia secondary to intracellular shifting from IV bicarb. 7. Hypomagnesemia from poor oral intake. Better. 8. Hypocalcemia secondary to acute kidney injury and tumor lysis. Corrected calcium 7.2. Plan: Maintain normal saline at 75 mL an hour. Continue oral sodium bicarbonate. Avoid nephrotoxins. Replace potassium. 60 mEq today. 1 g IV calcium gluconate today. Repeat electrolytes in the morning.
[2019-10-22] MEDS ORDERED: CALCIUM GLUCONATE 1 GM in SODIUM CHLORIDE 0.9% 100 ML IVPB ONE (09:30)
[2019-10-22] MEDS: POTASSIUM CHLORIDE ER 20 MEQ TAB.ER PO STA ×2 (10:10→13:19)
[2019-10-22] MEDS: SODIUM BICARBONATE TAB 650 MG TAB PO SCH ×2 (10:10→21:22)
[2019-10-22] MEDS: DEXAMETHASONE 4 MG TAB PO SCH ×2 (10:10→21:22)
[2019-10-22] MEDS: MULTIVITAMINS, THERA 1 EACH TAB PO SCH (10:10)
[2019-10-22] MEDS: FAMOTIDINE 20 MG TAB PO SCH (10:10)
[2019-10-22] MEDS: METOPROLOL TARTRATE 50 MG TAB PO SCH ×3 (10:10→21:21)
[2019-10-22] MEDS: MEGESTROL 400 MG/10 ML CUP PO SCH (10:11)
[2019-10-22] MEDS: POTASSIUM CHLORIDE ER 20 MEQ TAB.ER PO SCH ×2 (10:11→13:16)
--- NOTE | 2019-10-22 10:25 | P.PN ---
Subjective Progress Note Date: 10/22/19 Mey Hernandez, is a 64-year-old female who presented to [facility] emergency room with a chief complaint of weakness, patient has a known history of AML diagnosed in March 2019, her last chemotherapy was in June 2019, she was evaluated in the emergency room and was found to have anemia was hemoglobin of 6.3, she had positive stools Hemoccult, patient also had elevated BUN and creatinine and positive troponin level, she denies any chest pain or shortness of breath, her only complaint is generalized weakness. Patient also has a known history of hypertension, hyperlipidemia, and diabetes mellitus. On 10/18/2019 patient's alert and oriented resting comfortably in bed. Discussed case with oncology services. Patient got 1 unit PRBCs yesterday 1 unit of platelets ordered for today per oncology. Patient started on Rocephin for UTI. Infectious disease services have been consulted. Creatinine improving to 3.09 bun 47. Nephrology services are following. At this time patient denies chest pain or shortness of breath. Patient denies nausea vomiting diarrhea. Patient denies any urinary burning or frequency On 10/19/2019 patient's alert and oriented resting comfortably bed. Hemoglobin 5.7 platelets 5. Per Oncology patient will receive 1 unit PRBCs and 1 unit platelets. Her nursing signs of bleeding patient had dark stool with bowel movement.She remains on Rocephin for urinary tract infection. Dr. Estevez following. Cardiology services have been consulted for abnormal troponin. At this time patient denies chest pain or shortness of breath. Patient denies any urinary burning or frequency. Patient denies nausea vomiting or diarrhea. On 10/20/2019 patient was seen and examined on the medical floor she is alert and oriented 3 in no apparent distress she denies any pain or discomfort at this time there is no rectal bleeding, hemoglobin still low at 7.3 platelet count 8, patient is being evaluated by oncology. There is no fever or chills no headache or dizziness no chest pain no shortness of breath no cough no nausea or vomiting no abdominal pain no diarrhea no burning with urination no frequency or urgency and no hematuria On 10/21/2019 patient was seen and examined on the telemetry floor she is feeling better less fatigued today there is no fever or chills no headache or dizziness no chest pain no shortness of breath no cough no nausea or vomiting no abdominal pain no diarrhea no burning with urination no frequency or urgency and no hematuria On 10/22/2019 patient is currently resting comfortably in bed creatinine improving to 1.56 and bun 39. Hemoglobin 7.1.Platelets 5. Additional unit of platelets has been ordered. At this time patient denies chest pain or shortness breath. Patient denies nausea vomiting or diarrhea. Patient denies any urinary burning or frequency Objective - Vital Signs Vital signs: Vital Signs Temp 97.8 F 10/22/19 08:00 Pulse 79 10/22/19 08:00 Resp 16 10/22/19 08:00 BP 154/85 10/22/19 08:00 Pulse Ox 99 10/22/19 08:00 Intake & Output 10/21/19 10/22/19 10/22/19 18:59 06:59 18:59 Intake Total 80 75 Output Total 1000 550 Balance -920 -475 Weight 71.5 kg Intake: Intake, IV Titration 75 Amount Sodium Chloride 0.9% 1, 75 000 ml @ 75 mls/hr IV . [id number] [facility] Rx#:[id number] Oral 80 Output: Urine 1000 550 Other: Voiding Method Bedpan Incontinent # Voids 1 - Exam In general patient is alert and oriented 3 in no apparent distress HEENT head normocephalic and atraumatic Neck is supple no JVD no goiter no lymphadenopathy Chest exam reveals a few scattered rhonchi no wheezing Cardiac exam reveals regular heart sounds no gallops no murmurs Abdomen is soft nontender no organomegaly Extremity exam reveals no edema no cyanosis or clubbing Neurological examination reveals no gross focal deficit - Labs CBC & Chem 7: 10/22/19 05:40 10/22/19 08:30 Labs: Abnormal Lab Results - Last 24 Hours (Table) 10/21/19 10/21/19 10/21/19 Range/Units 05:33 11:35 16:33 WBC 1.5 L (3.8-10.6) k/uL RBC (3.80-5.40) m/uL Hgb (11.4-16.0) gm/dL Hct (34.0-46.0) % MCV (80.0-100.0) fL RDW (11.5-15.5) % Plt Count (150-450) k/uL Neutrophils # (Manual) 0.80 L (1.3-7.7) k/uL Lymphocytes # (Manual) 0.23 L (1.0-4.8) k/uL Metamyelocytes # (Man) 0.02 H (0) k/uL Nucleated RBCs 17 H (0-0) /100 WBC Macrocytosis Potassium (3.5-5.1) mmol/L BUN (7-17) mg/dL Creatinine (0.52-1.04) mg/dL Glucose (74-99) mg/dL POC Glucose (mg/dL) 174 H 195 H (75-99) mg/dL Calcium (8.4-10.2) mg/dL Total Bilirubin (0.2-1.3) mg/dL Total Protein (6.3-8.2) g/dL Albumin (3.5-5.0) g/dL 10/21/19 10/22/19 10/22/19 Range/Units 20:48 05:40 05:40 WBC 0.9 L* (3.8-10.6) k/uL RBC 2.05 L (3.80-5.40) m/uL Hgb 7.1 L (11.4-16.0) gm/dL Hct 20.7 L (34.0-46.0) % MCV 101.1 H (80.0-100.0) fL RDW 23.5 H (11.5-15.5) % Plt Count 5 L* (150-450) k/uL Neutrophils # (Manual) (1.3-7.7) k/uL Lymphocytes # (Manual) (1.0-4.8) k/uL Metamyelocytes # (Man) (0) k/uL Nucleated RBCs (0-0) /100 WBC Macrocytosis Marked A Potassium 3.2 L (3.5-5.1) mmol/L BUN 40 H (7-17) mg/dL Creatinine 1.61 H (0.52-1.04) mg/dL Glucose 166 H (74-99) mg/dL POC Glucose (mg/dL) 207 H (75-99) mg/dL Calcium 6.2 L* (8.4-10.2) mg/dL Total Bilirubin 1.4 H (0.2-1.3) mg/dL Total Protein 5.3 L (6.3-8.2) g/dL Albumin 2.7 L (3.5-5.0) g/dL 10/22/19 10/22/19 Range/Units 06:10 08:30 WBC (3.8-10.6) k/uL RBC (3.80-5.40) m/uL Hgb (11.4-16.0) gm/dL Hct (34.0-46.0) % MCV (80.0-100.0) fL RDW (11.5-15.5) % Plt Count (150-450) k/uL Neutrophils # (Manual) (1.3-7.7) k/uL Lymphocytes # (Manual) (1.0-4.8) k/uL Metamyelocytes # (Man) (0) k/uL Nucleated RBCs (0-0) /100 WBC Macrocytosis Potassium 3.3 L (3.5-5.1) mmol/L BUN 39 H (7-17) mg/dL Creatinine 1.56 H (0.52-1.04) mg/dL Glucose 168 H (74-99) mg/dL POC Glucose (mg/dL) 175 H (75-99) mg/dL Calcium 6.3 L* (8.4-10.2) mg/dL Total Bilirubin (0.2-1.3) mg/dL Total Protein (6.3-8.2) g/dL Albumin (3.5-5.0) g/dL Assessment and Plan Assessment: #1 generalized weakness likely related to acute on chronic anemia. Oncology services are following. Patient has received 2 units of PRBCs and 2 units platelets #2 recent admission with gastrointestinal bleeding, at this time no mara blood from the rectum however stool Hemoccult was positive #3 underlying history of AML last chemotherapy in June 2019 oncology consultation was requested. #4 acute kidney injury secondary to hypovolemic hypotension. elevated BUN and creatinine at 60 and 3.72 last creatinine on September 13 was 0.82 . Creatinine improving to 3.09 and bun 47. nephrology services are following,. Ultrasound of kidney renal and bladder has been completed showing indeterminate echogenicity increase within the medial aspects of kidneys possible nephrolithiasis on the left mild left-sided hydronephrosis suspected there is some free fluid in the pelvis #5 elevated troponin level patient denies any chest pain, this could be related to abnormal kidney function. Cardiology services are following. 2-D echo has been ordered. Likely secondary to edema and abnormal renal function #6 evidence of UTI, will obtain urine culture and start Rocephin. Culture ordered. Infectious disease consulted #7 underlying history of hypertension will resume metoprolol #8 underlying history of hyperlipidemia #9 underlying history of diabetes mellitus. #10. Acute on chronic thrombocytopenia secondary to chemotherapy and leukemia. She will receive a total of 3 units of platelets #11. Tumor lysis syndrome following antineoplastic chemotherapy. Uric acid 17. Allopurinol ordered per oncology. Elitek has been ordered per oncology #12. Electrode imbalance with hypokalemia, hypocalcemia and hypomagnesemia seemed correcting nephrology and oncology services are following DVT prophylaxis SCDs. GI prophylaxis Pepcid Oncology, nephrology, cardiology and infectious disease services are following. Urine culture ordered. Normal saline at 75 PT OT consulted I performed an examination of the patient and discussed their management with the Nurse Practitioner. I have reviewed the Nurse Practitioner's notes and a gree with the documented findings and plan of care
[2019-10-22 11:36] LABS: Glucose,Whole Blood 197 mg/dL (75-99)
[2019-10-22] MEDS: Acetaminophen-Codeine 300-30mg TAB PO PRN ×2 (13:15→21:22)
[2019-10-22] MEDS: SODIUM CHLORIDE 0.9% 1,000 ML IV SCH (13:15)
[2019-10-22] MEDS: POTASSIUM CHLORIDE 10 MEQ in WATER FOR INJECTION 1 100ML.BAG IVPB SCH ×2 (15:14→17:26)
[2019-10-22] MEDS: ALPRAZolam 0.25 MG TAB PO PRN (15:42)
[2019-10-22 16:37] LABS: Glucose,Whole Blood 211 mg/dL (75-99)
--- NOTE | 2019-10-22 18:20 | P.PN ---
Subjective Progress Note Date: 10/22/19 Principal diagnosis: AML, on oral treatment, pancytopenia In f/u pt is laying in bed, she does not move much, Mouth is dry, appetite is fair, no nausea or vomiting, she denies any pain sure when her last bowel movement was, denies bleeding Objective - Vital Signs Vital signs: Vital Signs Temp 97.1 F L 10/22/19 15:10 Pulse 78 10/22/19 15:10 Resp 16 10/22/19 15:10 BP 144/84 10/22/19 15:10 Pulse Ox 98 10/22/19 15:10 Intake & Output 10/21/19 10/22/19 10/22/19 18:59 06:59 18:59 Intake Total 80 75 0 Output Total 1000 550 900 Balance -246 -866 -900 Weight 71.5 kg 71.5 kg Intake: Intake, IV Titration 75 Amount Sodium Chloride 0.9% 1, 75 000 ml @ 75 mls/hr IV . [id number] LAST Rx#:[id number] Oral 80 0 Output: Urine 1000 550 900 Other: Voiding Method Bedpan Bedpan Incontinent Incontinent # Voids 1 - Constitutional General appearance: Present: average body habitus, cooperative, no acute distress - EENT EENT Comment(s): dry lips, mucus membranes less dry Eyes: Present: anicteric sclerae, EOMI - Respiratory Respiratory: bilateral: CTA (weak inspiratory effort) - Cardiovascular Rhythm: regular Heart sounds: normal: S1, S2 Abnormal Heart Sounds: Absent: systolic murmur, diastolic murmur, rub, S3 Gallop, S4 Gallop, click, other - Peripheral edema leg Peripheral Edema: bilateral: None - Gastrointestinal General gastrointestinal: Present: normal bowel sounds, soft - Neurologic Neurologic: Present: CNII-XII intact - Musculoskeletal Musculoskeletal: Present: generalized weakness - Psychiatric Psychiatric Comment(s): A&Ox2 Psychiatric: Present: appropriate affect - Labs CBC & Chem 7: 10/22/19 05:40 10/22/19 08:30 Labs: Abnormal Lab Results - Last 24 Hours (Table) 10/21/19 10/22/19 10/22/19 Range/Units 20:48 05:40 05:40 WBC 0.9 L* (3.8-10.6) k/uL RBC 2.05 L (3.80-5.40) m/uL Hgb 7.1 L (11.4-16.0) gm/dL Hct 20.7 L (34.0-46.0) % MCV 101.1 H (80.0-100.0) fL RDW 23.5 H (11.5-15.5) % Plt Count 5 L* (150-450) k/uL Macrocytosis Marked A Potassium 3.2 L (3.5-5.1) mmol/L BUN 40 H (7-17) mg/dL Creatinine 1.61 H (0.52-1.04) mg/dL Glucose 166 H (74-99) mg/dL POC Glucose (mg/dL) 207 H (75-99) mg/dL Calcium 6.2 L* (8.4-10.2) mg/dL Total Bilirubin 1.4 H (0.2-1.3) mg/dL Total Protein 5.3 L (6.3-8.2) g/dL Albumin 2.7 L (3.5-5.0) g/dL 10/22/19 10/22/19 10/22/19 Range/Units 06:10 08:30 11:32 WBC (3.8-10.6) k/uL RBC (3.80-5.40) m/uL Hgb (11.4-16.0) gm/dL Hct (34.0-46.0) % MCV (80.0-100.0) fL RDW (11.5-15.5) % Plt Count (150-450) k/uL Macrocytosis Potassium 3.3 L (3.5-5.1) mmol/L BUN 39 H (7-17) mg/dL Creatinine 1.56 H (0.52-1.04) mg/dL Glucose 168 H (74-99) mg/dL POC Glucose (mg/dL) 175 H 197 H (75-99) mg/dL Calcium 6.3 L* (8.4-10.2) mg/dL Total Bilirubin (0.2-1.3) mg/dL Total Protein (6.3-8.2) g/dL Albumin (3.5-5.0) g/dL 10/22/19 Range/Units 16:33 WBC (3.8-10.6) k/uL RBC (3.80-5.40) m/uL Hgb (11.4-16.0) gm/dL Hct (34.0-46.0) % MCV (80.0-100.0) fL RDW (11.5-15.5) % Plt Count (150-450) k/uL Macrocytosis Potassium (3.5-5.1) mmol/L BUN (7-17) mg/dL Creatinine (0.52-1.04) mg/dL Glucose (74-99) mg/dL POC Glucose (mg/dL) 211 H (75-99) mg/dL Calcium (8.4-10.2) mg/dL Total Bilirubin (0.2-1.3) mg/dL Total Protein (6.3-8.2) g/dL Albumin (3.5-5.0) g/dL Assessment and Plan (1) Tumor lysis syndrome following antineoplastic drug therapy Narrative/Plan: Normal Uric acid levels, resolved with treatment Current Visit: Yes Status: Acute Priority: High Code(s): E88.3 - TUMOR LYSIS SYNDROME; T45.1X5A - ADVERSE EFFECT OF ANTINEOPLASTIC AND IMMUNOSUP DRUGS, INIT SNOMED Code(s): 753030281 (2) Pancytopenia due to antineoplastic chemotherapy Narrative/Plan: Pt counts have progressively declined of the last few weeks. Her IDHIFA for AML was held 10 days ago. Cont to hold for now. Close CBC monitoring. Transfuse for Hgb <7, plt less than 10K or if symptomatic-pt getting platelets today. No intervention for WBC count at this time-pt is acute leukemia not in r emission. No indication for GCSF in acute leukemia without remission Current Visit: Yes Status: Acute Priority: High Code(s): D61.810 - ANTINEOPLASTIC CHEMOTHERAPY INDUCED PANCYTOPENIA; T45.1X5A - ADVERSE EFFECT OF ANTINEOPLASTIC AND IMMUNOSUP DRUGS, INIT SNOMED Code(s): 655768797540039 (3) Acute renal failure Narrative/Plan: Renal function slow to improve. Cont steroids per pkg insert. 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 Slow to recover. Dr. Carson would like to repeat bone marrow. I did discuss this with pt today. She is agreeable to proceed. Current Visit: Yes Status: Chronic Priority: High Code(s): C92.50 - ACUTE MYELOMONOCYTIC LEUKEMIA, NOT HAVING ACHIEVED REMISSION SNOMED Code(s): 637577944 Plan: Labs in AM. Differentiation syndrome less likely, more suspect disease progression. Plan for BM Bx this week Cont supportive care for now
--- NOTE | 2019-10-22 19:47 | PN ---
PROGRESS NOTE DATE OF SERVICE: 10/22/2019 REASON FOR FOLLOWUP: Urinary tract infection. INTERVAL HISTORY: The patient is currently afebrile. The patient has been breathing comfortably. Denies having any chest pain or any cough. No nausea, vomiting. No abdominal pain or diarrhea. PHYSICAL EXAMINATION: Blood pressure 141/71 with a pulse of 62, temperature 97.8. She is 99% on room air. General description is an elderly female lying in bed in no distress. RESPIRATORY SYSTEM: Unlabored breathing. Clear to auscultation anteriorly. HEART: S1, S2. Regular rate and rhythm. ABDOMEN: Soft. No tenderness. EXTREMITIES: No edema of the feet. LABS: Hemoglobin 7.1, white count 0.9, BUN of 39, creatinine 1.56. Blood and urine cultures have been negative. DIAGNOSTIC IMPRESSION AND PLAN: Patient admitted to hospital with generalized weakness which is likely multifactorial with dehydration and anemia. Possibly UTI that has been adequately treated, now with worsening of . Oncology is on the case with the recommendation of no need for further antibiotic therapy at this point. Monitor the patient closely off antibiotic. Continue with supportive care. MMODL / IJN: [id number] /
[2019-10-22 20:55] LABS: Glucose,Whole Blood 191 mg/dL (75-99)
[2019-10-22] MEDS: INSULIN ASPART (NovoLOG) 100 UNIT/ML VIAL SQ SCH (21:50)
[2019-10-23] MEDS: SODIUM CHLORIDE 0.9% 1,000 ML IV SCH ×2 (04:33→16:33)
[2019-10-23] MEDS: SALT AND SODA MOUTHWASH 1,000 ML PO SCH ×5 (05:36→23:50)
[2019-10-23] MEDS: CALCIUM CARB-VIT D 500MG-200UN 1 EACH TAB PO SCH ×2 (05:36→16:33)
[2019-10-23] MEDS: ALPRAZolam 0.25 MG TAB PO PRN (05:59)
[2019-10-23] MEDS: MIDODRINE 5 MG TAB PO SCH ×2 (05:59→16:27)
[2019-10-23] MEDS: DIGOXIN 125 MCG TAB PO SCH (06:00)
[2019-10-23] MEDS: CITALOPRAM HYDROBROMIDE 20 MG TAB PO SCH (06:00)
[2019-10-23 06:07] LABS: Glucose,Whole Blood 187 mg/dL (75-99)
[2019-10-23] MEDS: INSULIN ASPART (NovoLOG) 100 UNIT/ML VIAL SQ SCH ×4 (06:14→20:25)
[2019-10-23] MEDS: LORazepam 1 MG TAB PO PRN ×2 (06:32→17:45)
[2019-10-23 06:57] LABS: Albumin 2.9 g/dL (3.5-5.0); Potassium 3.2 mmol/L (3.5-5.1); Total Bilirubin 1.8 mg/dL (0.2-1.3); Total Protein 5.5 g/dL (6.3-8.2)
[2019-10-23 07:03] LABS: Calcium 6.2 mg/dL (8.4-10.2)
[2019-10-23 07:09] LABS: Anisocytosis Moderate; MCHC 33.4 g/dL (31.0-37.0); MCV 98.9 fL (80.0-100.0); Macrocytosis Moderate; Mean Platelet Volume 8.5; RBC 1.99 m/uL (3.80-5.40); RDW 23.2 % (11.5-15.5)
[2019-10-23 07:17] LABS: Platelet Count 25 k/uL (150-450); WBC 0.7 k/uL (3.8-10.6)
[2019-10-23 07:19] LABS: HGB 6.6 gm/dL (11.4-16.0)
[2019-10-23 07:20] LABS: HCT 19.7 % (34.0-46.0)
[2019-10-23 09:04] LABS: Polychromasia Present
--- NOTE | 2019-10-23 10:03 | P.PN ---
Subjective Progress Note Date: 10/23/19 Seen and examined for the follow-up of acute kidney injury. Lying comfortable in the bed. No nausea vomiting diarrhea. Objective - Vital Signs Vital signs: Vital Signs Temp 98.1 F 10/23/19 09:36 Pulse 70 10/23/19 09:36 Resp 12 10/23/19 09:36 BP 166/82 10/23/19 09:36 Pulse Ox 98 10/23/19 09:36 Intake & Output 10/22/19 10/23/19 10/23/19 18:59 06:59 18:59 Intake Total 0 317 Output Total 900 1050 800 Balance -900 -521 -800 Weight 71.5 kg 73.5 kg Intake: Oral 0 Blood Product 317 Platelet Irr Pheresis 2 317 Acda Unit [id number] Output: Urine 900 1050 800 Other: Voiding Method Bedpan Incontinent # Bowel Movements 1 - Exam No acute distress Lungs clear S1-S2 heard Abdomen soft No edema - Labs CBC & Chem 7: 10/23/19 05:27 10/23/19 05:27 Labs: Abnormal Lab Results - Last 24 Hours (Table) 10/22/19 10/22/19 10/22/19 Range/Units 11:32 12:30 16:33 WBC (3.8-10.6) k/uL RBC (3.80-5.40) m/uL Hgb (11.4-16.0) gm/dL Hct (34.0-46.0) % RDW (11.5-15.5) % Plt Count (150-450) k/uL Potassium (3.5-5.1) mmol/L BUN (7-17) mg/dL Creatinine (0.52-1.04) mg/dL Glucose (74-99) mg/dL POC Glucose (mg/dL) 197 H 211 H (75-99) mg/dL Calcium (8.4-10.2) mg/dL Total Bilirubin (0.2-1.3) mg/dL Total Protein (6.3-8.2) g/dL Albumin (3.5-5.0) g/dL Crossmatch See Detail 10/22/19 10/23/19 10/23/19 Range/Units 20:54 05:27 05:27 WBC 0.7 L* (3.8-10.6) k/uL RBC 1.99 L (3.80-5.40) m/uL Hgb 6.6 L* (11.4-16.0) gm/dL Hct 19.7 L* (34.0-46.0) % RDW 23.2 H (11.5-15.5) % Plt Count 25 L D (150-450) k/uL Potassium 3.2 L (3.5-5.1) mmol/L BUN 37 H (7-17) mg/dL Creatinine 1.21 H (0.52-1.04) mg/dL Glucose 163 H (74-99) mg/dL POC Glucose (mg/dL) 191 H (75-99) mg/dL Calcium 6.2 L* (8.4-10.2) mg/dL Total Bilirubin 1.8 H (0.2-1.3) mg/dL Total Protein 5.5 L (6.3-8.2) g/dL Albumin 2.9 L (3.5-5.0) g/dL Crossmatch 10/23/19 Range/Units 06:05 WBC (3.8-10.6) k/uL RBC (3.80-5.40) m/uL Hgb (11.4-16.0) gm/dL Hct (34.0-46.0) % RDW (11.5-15.5) % Plt Count (150-450) k/uL Potassium (3.5-5.1) mmol/L BUN (7-17) mg/dL Creatinine (0.52-1.04) mg/dL Glucose (74-99) mg/dL POC Glucose (mg/dL) 187 H (75-99) mg/dL Calcium (8.4-10.2) mg/dL Total Bilirubin (0.2-1.3) mg/dL Total Protein (6.3-8.2) g/dL Albumin (3.5-5.0) g/dL Crossmatch Assessment and Plan Assessment: #1 nonoliguric acute kidney injury secondary to ischemic ATN from acute blood loss anemia and tumor lysis syndrome. #2 pancytopenia secondary to chemotherapy #3 AML #4 hyperuricemia status post rasburicase #5 hypokalemia #6 hypocalcemia secondary to tumor lysis syndrome Plan: #1 creatinine improving, close to baseline. #2 avoid nephrotoxic agents and hypotensive episodes #3 stop sodium bicarbonate #4 replace potassium, check magnesium in the morning including phosphorus and intact PTH
[2019-10-23] MEDS ORDERED: Potassium Replacement Protocol 1 EACH MISC MISCELLANE PRN (10:08)
[2019-10-23] MEDS: METOPROLOL TARTRATE 50 MG TAB PO SCH ×3 (10:15→20:11)
--- NOTE | 2019-10-23 10:26 | P.PN ---
Subjective Progress Note Date: 10/23/19 Mey Hernandez, is a 64-year-old female who presented to [facility] emergency room with a chief complaint of weakness, patient has a known history of AML diagnosed in March 2019, her last chemotherapy was in June 2019, she was evaluated in the emergency room and was found to have anemia was hemoglobin of 6.3, she had positive stools Hemoccult, patient also had elevated BUN and creatinine and positive troponin level, she denies any chest pain or shortness of breath, her only complaint is generalized weakness. Patient also has a known history of hypertension, hyperlipidemia, and diabetes mellitus. On 10/18/2019 patient's alert and oriented resting comfortably in bed. Discussed case with oncology services. Patient got 1 unit PRBCs yesterday 1 unit of platelets ordered for today per oncology. Patient started on Rocephin for UTI. Infectious disease services have been consulted. Creatinine improving to 3.09 bun 47. Nephrology services are following. At this time patient denies chest pain or shortness of breath. Patient denies nausea vomiting diarrhea. Patient denies any urinary burning or frequency On 10/19/2019 patient's alert and oriented resting comfortably bed. Hemoglobin 5.7 platelets 5. Per Oncology patient will receive 1 unit PRBCs and 1 unit platelets. Her nursing signs of bleeding patient had dark stool with bowel movement.She remains on Rocephin for urinary tract infection. Dr. Estevez following. Cardiology services have been consulted for abnormal troponin. At this time patient denies chest pain or shortness of breath. Patient denies any urinary burning or frequency. Patient denies nausea vomiting or diarrhea. On 10/20/2019 patient was seen and examined on the medical floor she is alert and oriented 3 in no apparent distress she denies any pain or discomfort at this time there is no rectal bleeding, hemoglobin still low at 7.3 platelet count 8, patient is being evaluated by oncology. There is no fever or chills no headache or dizziness no chest pain no shortness of breath no cough no nausea or vomiting no abdominal pain no diarrhea no burning with urination no frequency or urgency and no hematuria On 10/21/2019 patient was seen and examined on the telemetry floor she is feeling better less fatigued today there is no fever or chills no headache or dizziness no chest pain no shortness of breath no cough no nausea or vomiting no abdominal pain no diarrhea no burning with urination no frequency or urgency and no hematuria On 10/22/2019 patient is currently resting comfortably in bed creatinine improving to 1.56 and bun 39. Hemoglobin 7.1.Platelets 5. Additional unit of platelets has been ordered. At this time patient denies chest pain or shortness breath. Patient denies nausea vomiting or diarrhea. Patient denies any urinary burning or frequency on 10/23/2019 patient is alert and oriented. Patient is resting comfortably in bed. Patient had some increased anxiety throughout the night required Ativan. Per nursing staff per oncology bone marrow biopsy has been ordered for noon today 1 unit of PRBCs also ordered for hemoglobin of 6.6. At this time patient denies any chest pain or shortness of breath. Patient denies nausea vomiting or diarrhea. Patient denies any urinary burning or frequency. Creatinine improving to 1.21 and bun 37. Potassium low at 3.2 replace per protocol Objective - Vital Signs Vital signs: Vital Signs Temp 98.1 F 10/23/19 09:36 Pulse 70 10/23/19 09:36 Resp 12 10/23/19 09:36 BP 166/82 10/23/19 09:36 Pulse Ox 98 10/23/19 09:36 Intake & Output 10/22/19 10/23/19 10/23/19 18:59 06:59 18:59 Intake Total 0 317 Output Total 900 1050 800 Balance -900 -733 -800 Weight 71.5 kg 73.5 kg Intake: Oral 0 Blood Product 317 Platelet Irr Pheresis 2 317 Acda Unit [id number] Output: Urine 900 1050 800 Other: Voiding Method Bedpan Incontinent # Bowel Movements 1 - Exam In general patient is alert and oriented 3 in no apparent distress HEENT head normocephalic and atraumatic Neck is supple no JVD no goiter no lymphadenopathy Chest exam reveals a few scattered rhonchi no wheezing Cardiac exam reveals regular heart sounds no gallops no murmurs Abdomen is soft nontender no organomegaly Extremity exam reveals no edema no cyanosis or clubbing Neurological examination reveals no gross focal deficit - Labs CBC & Chem 7: 10/23/19 05:27 10/23/19 05:27 Labs: Abnormal Lab Results - Last 24 Hours (Table) 10/22/19 10/22/19 10/22/19 Range/Units 11:32 12:30 16:33 WBC (3.8-10.6) k/uL RBC (3.80-5.40) m/uL Hgb (11.4-16.0) gm/dL Hct (34.0-46.0) % RDW (11.5-15.5) % Plt Count (150-450) k/uL Potassium (3.5-5.1) mmol/L BUN (7-17) mg/dL Creatinine (0.52-1.04) mg/dL Glucose (74-99) mg/dL POC Glucose (mg/dL) 197 H 211 H (75-99) mg/dL Calcium (8.4-10.2) mg/dL Total Bilirubin (0.2-1.3) mg/dL Total Protein (6.3-8.2) g/dL Albumin (3.5-5.0) g/dL Crossmatch See Detail 10/22/19 10/23/19 10/23/19 Range/Units 20:54 05:27 05:27 WBC 0.7 L* (3.8-10.6) k/uL RBC 1.99 L (3.80-5.40) m/uL Hgb 6.6 L* (11.4-16.0) gm/dL Hct 19.7 L* (34.0-46.0) % RDW 23.2 H (11.5-15.5) % Plt Count 25 L D (150-450) k/uL Potassium 3.2 L (3.5-5.1) mmol/L BUN 37 H (7-17) mg/dL Creatinine 1.21 H (0.52-1.04) mg/dL Glucose 163 H (74-99) mg/dL POC Glucose (mg/dL) 191 H (75-99) mg/dL Calcium 6.2 L* (8.4-10.2) mg/dL Total Bilirubin 1.8 H (0.2-1.3) mg/dL Total Protein 5.5 L (6.3-8.2) g/dL Albumin 2.9 L (3.5-5.0) g/dL Crossmatch 10/23/19 Range/Units 06:05 WBC (3.8-10.6) k/uL RBC (3.80-5.40) m/uL Hgb (11.4-16.0) gm/dL Hct (34.0-46.0) % RDW (11.5-15.5) % Plt Count (150-450) k/uL Potassium (3.5-5.1) mmol/L BUN (7-17) mg/dL Creatinine (0.52-1.04) mg/dL Glucose (74-99) mg/dL POC Glucose (mg/dL) 187 H (75-99) mg/dL Calcium (8.4-10.2) mg/dL Total Bilirubin (0.2-1.3) mg/dL Total Protein (6.3-8.2) g/dL Albumin (3.5-5.0) g/dL Crossmatch Assessment and Plan Assessment: #1 generalized weakness likely related to acute on chronic anemia. Oncology services are following. Patient has received 3 units of PRBCs and 3 units platelets #2 recent admission with gastrointestinal bleeding, at this time no mara blood from the rectum however stool Hemoccult was positive #3 underlying history of AML last chemotherapy in June 2019 oncology consultation was requested. Plans for bone marrow biopsy today 10/23/2019 #4 acute kidney injury secondary to hypovolemic hypotension. elevated BUN and creatinine at 60 and 3.72 last creatinine on September 13 was 0.82 . Creatinine improving to 3.09 and bun 47. nephrology services are following,. Ultrasound of kidney renal and bladder has been completed showing indeterminate echogenicity increase within the medial aspects of kidneys possible nephrolithiasis on the left mild left-sided hydronephrosis suspected there is some free fluid in the pelvis #5 elevated troponin level patient denies any chest pain, this could be related to abnormal kidney function. Cardiology services are following. 2-D echo completed showing EF of 55-60%. Likely secondary to edema and abnormal renal function #6 evidence of UTI, will obtain urine culture and start Rocephin. Urine culture negative. rocephin has been d/c. Infectious disease is following #7 underlying history of hypertension will resume metoprolol #8 underlying history of hyperlipidemia #9 underlying history of diabetes mellitus. #10. Acute on chronic thrombocytopenia secondary to chemotherapy and leukemia. She will receive a total of 3 units of platelets #11. Tumor lysis syndrome following antineoplastic chemotherapy. Uric acid 17. Allopurinol ordered per oncology. Elitek has been ordered per oncology. Resolved with treatment #12. Electrolyte imbalance with hypokalemia, hypocalcemia and hypomagnesemia seemed correcting nephrology and oncology services are following #13. Increased confusion with agitation intermittently occurring. Neurology services have been consulted Ativan has been added DVT prophylaxis SCDs. GI prophylaxis Pepcid Oncology, nephrology, neurology and infectious disease services are following. PT OT consulted Bone marrow biopsy today 10/23/2019 Dr. COLLEEN Baires will be covering for Dr. Dr. Galeana October 24 - October 28 I performed an examination of the patient and discussed their management with the Nurse Practitioner. I have reviewed the Nurse Practitioner's notes and agree with the documented findings and plan of care
[2019-10-23 11:45] LABS: Glucose,Whole Blood 166 mg/dL (75-99)
[2019-10-23] MEDS ORDERED: MIDAZOLAM 2 MG/2 ML VIAL ONE (12:30)
[2019-10-23] MEDS ORDERED: fentaNYL (PF) 50 MCG/ML 2 ML AMP ONE (12:30)
[2019-10-23] MEDS ORDERED: PROPOFOL 10 MG/ML 20 ML VIAL IV ONE (12:30)
[2019-10-23] MEDS ORDERED: KETAMINE 10 MG/ML 20 ML VIAL ONE (12:30)
[2019-10-23] MEDS ORDERED: LIDOCAINE 1% INJ 10MG/ML (20 ML MDV) ONE (12:30)
[2019-10-23] MEDS ORDERED: IV FLUID CONTINUATION 400 ML IV ONE (12:34)
--- NOTE | 2019-10-23 13:24 | P.PCN ---
Date of Procedure: 10/23/19 Preoperative Diagnosis: History of relapsed AML on treatment. New pancytopenia she had suspected relapse of AML Postoperative Diagnosis: Same Procedure(s) Performed: Bone marrow aspiration and biopsy Anesthesia: MAC Surgeon: Francisco Carson Sample Finisher #1: Stated None Estimated Blood Loss (ml): 2 Pathology: other Condition: stable Disposition: floor Indications for Procedure: History of relapsed AML on treatment with response. Patient developed new pancytopenia which is persistent. Suspected repeat relapse versus other Operative Findings: Aspirate samples hard to obtain. Possibly hemodiluted Description of Procedure: The procedure was explained in detail to the patient on the floor where informed consent was obtained. She was brought to the outpatient endoscopy suite and then placed in the left lateral decubitus position. The area over both posterior iliac crest was cleaned and prepped with chlorhexidine and sterile draping. IV sedation was then initiated. Local anesthesia was administered to the right posterior iliac crest. A Jamshidi needle was then inserted and bone marrow aspirate and biopsy is obtained. Aspirate was quite hard to obtain due to which 2 passes were made. 2 biopsy samples were obtained. It was felt that the aspirate would be hemodiluted and therefore attention was turned to the left posterior iliac crest after withdrawal of the needle and control of bleeding. Local anesthesia was in Mr. to the left posterior hilar crest. A Jamshidi needle was then inserted and bone marrow aspirate obtained. Again aspirate was hard to obtain with very slow collection. He was ultimately withdrawn, with hemostasis is being easily achieved. Her loss was minimal and recovery from sedation appeared to be satisfactory. She seemed to have tolerated the procedure well without any obvious immediate complications. The difficulty in obtaining aspirate despite multiple passes, was suspicious for potentially a packed marrow or fibrotic marrow causing "dry" type of tap
[2019-10-23] MEDS: MULTIVITAMINS, THERA 1 EACH TAB PO SCH (14:01)
[2019-10-23] MEDS: MEGESTROL 400 MG/10 ML CUP PO SCH (14:01)
[2019-10-23] MEDS: FAMOTIDINE 20 MG TAB PO SCH (14:01)
[2019-10-23] MEDS: POTASSIUM CHLORIDE ER 20 MEQ TAB.ER PO SCH ×2 (14:01→15:10)
[2019-10-23] MEDS ORDERED: POTASSIUM CHLORIDE 10 MEQ in WATER FOR INJECTION 1 100ML.BAG IVPB STA (14:02)
--- NOTE | 2019-10-23 16:07 | CT ---
EXAMINATION TYPE: CT abdomen pelvis wo con DATE OF EXAM: 10/23/2019 COMPARISON: None HISTORY: Abdominal pain CT DLP: 952.3 mGycm Automated exposure control for dose reduction was used. Multiple axial sections were obtained from the diaphragm to the floor the pelvis with no contrast. There is some mild atelectasis at the lung bases. Heart size is fairly normal. There is no pericardia l effusion. Spleen is intact. Liver is intact. Liver is enlarged and measures 26 cm. Gallbladder appe ars normal. There is no pancreatic mass. There is no adrenal mass. There are multiple calcifications in both kidneys that measure up to almost 1 cm. There is mild left-sided hydronephrosis. There is 4 mm calculus proximal left ureter. Right ur eter is not dilated. There is no retroperitoneal adenopathy. Bladder distends smoothly. There is no i nguinal hernia. There is no free fluid in the pelvis. Uterus is anteverted. There are small uterine c alcifications. There is no evidence of pelvic mass. There is minimal fat stranding involving the mesentery of the hepatic flexure of the colon. There is also mild wall thickening of the ascending colon. Cecum appears to be in the medial position in the m id abdomen. Appendix is not seen. There is no sign of thickened appendix. There is apparent altered l arge bowel anatomy. I see no evidence of a mechanical bowel obstruction. There are spondylotic change s in the lower lumbar spine. I see no bony destructive process. Bony pelvis appears intact. IMPRESSION: Bilateral renal calculi. Small obstructing calculus proximal left ureter with mild hydronephrosis. Hepatomegaly. Liver measures 26 cm. No dilated ducts. There is some wall thickening in the right colon that could relate to nonspecific colitis. There is d istended gas-filled transverse colon consistent with mild ileus.
[2019-10-23] MEDS: Acetaminophen-Codeine 300-30mg TAB PO PRN (16:26)
--- NOTE | 2019-10-23 16:26 | CT ---
EXAMINATION TYPE: CT brain wo con DATE OF EXAM: 10/23/2019 COMPARISON: None HISTORY: Altered mental status CT DLP: 1201.4 mGycm Automated exposure control for dose reduction was used. Ventricles have normal size. There is no mass effect nor midline shift. There is no sign of intracran ial hemorrhage. There is hyperostosis of the frontal bone. The calvarium is intact. IMPRESSION: Negative CT scan of the brain.
[2019-10-23] MEDS: DEXAMETHASONE 4 MG TAB PO SCH ×2 (16:29→20:11)
[2019-10-23 16:57] LABS: Glucose,Whole Blood 148 mg/dL (75-99)
--- NOTE | 2019-10-23 17:24 | P.PN ---
Subjective Progress Note Date: 10/23/19 The patient was evaluated at the time of her procedure today. She was overall weak and lethargic with slow affect. She had difficulty turning over in bed on her own. No history of fevers/chills/nausea/vomiting/overt bleeding. She has had some scattered bruises on her trunk and extremities. Objective - Vital Signs Vital signs: Vital Signs Temp 97.7 F 10/23/19 15:49 Pulse 98 10/23/19 16:00 Resp 18 10/23/19 16:00 BP 157/79 10/23/19 16:00 Pulse Ox 98 10/23/19 16:00 Intake & Output 10/22/19 10/23/19 10/23/19 18:59 06:59 18:59 Intake Total 0 317 300 Output Total 900 1050 800 Balance -900 -733 -500 Weight 71.5 kg 73.5 kg Intake: IV 300 Oral 0 Blood Product 317 0 Platelet Irr Pheresis 2 317 Acda Unit [id number] Rc Irr As1 Unit 0 [id number] Output: Urine 900 1050 800 Other: Voiding Method Bedpan Bedpan Incontinent Incontinent # Bowel Movements 1 - Constitutional General appearance: Present: no acute distress - EENT Eyes: Present: EOMI ENT: Present: hearing grossly normal, normal oropharynx - Respiratory Respiratory: bilateral: CTA - Cardiovascular Rhythm: regular Heart sounds: normal: S1, S2 - Gastrointestinal General gastrointestinal: Present: normal bowel sounds, soft - Integumentary Integumentary Comment(s): Scattered bruises, mostly small - Neurologic Neurologic: Present: CNII-XII intact - Musculoskeletal Musculoskeletal: Present: generalized weakness, strength equal bilaterally - Psychiatric Psychiatric Comment(s): Lethargic, slow affect Psychiatric: Present: A&O x's 3 - Labs CBC & Chem 7: 10/23/19 05:27 10/23/19 05:27 Labs: Abnormal Lab Results - Last 24 Hours (Table) 10/22/19 10/22/19 10/23/19 Range/Units 12:30 20:54 05:27 WBC 0.7 L* (3.8-10.6) k/uL RBC 1.99 L (3.80-5.40) m/uL Hgb 6.6 L* (11.4-16.0) gm/dL Hct 19.7 L* (34.0-46.0) % RDW 23.2 H (11.5-15.5) % Plt Count 25 L D (150-450) k/uL Retic Count 5.0 H (0.5-2.0) % Potassium (3.5-5.1) mmol/L BUN (7-17) mg/dL Creatinine (0.52-1.04) mg/dL Glucose (74-99) mg/dL POC Glucose (mg/dL) 191 H (75-99) mg/dL Calcium (8.4-10.2) mg/dL Total Bilirubin (0.2-1.3) mg/dL Total Protein (6.3-8.2) g/dL Albumin (3.5-5.0) g/dL Crossmatch See Detail 10/23/19 10/23/19 10/23/19 Range/Units 05:27 06:05 11:38 WBC (3.8-10.6) k/uL RBC (3.80-5.40) m/uL Hgb (11.4-16.0) gm/dL Hct (34.0-46.0) % RDW (11.5-15.5) % Plt Count (150-450) k/uL Retic Count (0.5-2.0) % Potassium 3.2 L (3.5-5.1) mmol/L BUN 37 H (7-17) mg/dL Creatinine 1.21 H (0.52-1.04) mg/dL Glucose 163 H (74-99) mg/dL POC Glucose (mg/dL) 187 H 166 H (75-99) mg/dL Calcium 6.2 L* (8.4-10.2) mg/dL Total Bilirubin 1.8 H (0.2-1.3) mg/dL Total Protein 5.5 L (6.3-8.2) g/dL Albumin 2.9 L (3.5-5.0) g/dL Crossmatch 10/23/19 Range/Units 16:35 WBC (3.8-10.6) k/uL RBC (3.80-5.40) m/uL Hgb (11.4-16.0) gm/dL Hct (34.0-46.0) % RDW (11.5-15.5) % Plt Count (150-450) k/uL Retic Count (0.5-2.0) % Potassium (3.5-5.1) mmol/L BUN (7-17) mg/dL Creatinine (0.52-1.04) mg/dL Glucose (74-99) mg/dL POC Glucose (mg/dL) 148 H (75-99) mg/dL Calcium (8.4-10.2) mg/dL Total Bilirubin (0.2-1.3) mg/dL Total Protein (6.3-8.2) g/dL Albumin (3.5-5.0) g/dL Crossmatch Assessment and Plan (1) Pancytopenia due to antineoplastic chemotherapy Narrative/Plan: The patient has persistent pancytopenia, despite stopping her regimen several days ago. The cause of this is unclear. There was concern for delayed differentiation syndrome, but that would likely not cause drop in her other counts from baseline. The concern is recurrence off for acute leukemia. Therefore the patient underwent a bone marrow aspiration and biopsy today. Results are pending. In the meantime continue monitoring with supportive transfusions to keep hemoglobin greater than 7, and platelets greater than 10 Current Visit: Yes Status: Acute Priority: High Code(s): D61.810 - ANTINEOPLASTIC CHEMOTHERAPY INDUCED PANCYTOPENIA; T45.1X5A - ADVERSE EFFECT OF ANTINEOPLASTIC AND IMMUNOSUP DRUGS, INIT SNOMED Code(s): 821910876679350 (2) Acute renal failure Narrative/Plan: The cause of this is not totally clear. The differentials include diff erentiation syndrome, as well as tumor lysis. The patient has been treated for both, with steroids, as well as Elitek and hydration respectively. Renal function is improving with reasonable urine output. Continue to monitor Current Visit: Yes Status: Acute Priority: High Code(s): N17.9 - ACUTE KIDNEY FAILURE, UNSPECIFIED SNOMED Code(s): 73145504 (3) Weakness generalized Narrative/Plan: This is multifactorial. This has been chronically present even on the patient was showing evidence of remission, but was improving with PT. This has worsened during her recent admission. The case was discussed with nursing. There appears to be slow progression of lethargy and diminished affect. CT scan of the brain will be performed to check for evidence of bleed. Continue supportive care in the meantime Current Visit: No Status: Acute Priority: High Code(s): R53.1 - WEAKNESS SNOMED Code(s): 25134039
[2019-10-23] MEDS: POTASSIUM CHLORIDE 10 MEQ in WATER FOR INJECTION 1 100ML.BAG IVPB SCH (18:34)
[2019-10-23 20:18] LABS: Glucose,Whole Blood 214 mg/dL (75-99)
[2019-10-23] MEDS ORDERED: LORazepam 1 MG TAB PO STA (21:08)
--- NOTE | 2019-10-23 22:36 | PN ---
PROGRESS NOTE DATE OF SERVICE: 10/23/2019 REASON FOR FOLLOWUP: UTI. INTERVAL HISTORY: The patient is currently afebrile. The patient has been breathing comfortably. Denies having any chest pain or any cough. No nausea, no vomiting or any diarrhea reported. PHYSICAL EXAMINATION: Blood pressure 157/75 with a pulse of 88, temperature 97.7. She is 98% on room air. General description is an elderly female up in the chair in no distress. RESPIRATORY SYSTEM: Unlabored breathing. Clear to auscultation anteriorly. HEART: S1, S2. Regular rate and rhythm. ABDOMEN: Soft. No tenderness. LABS: Hemoglobin is 6.6, white count 0.7, platelet count 25, creatinine 1.1. DIAGNOSTIC IMPRESSION AND PLAN: Patient admitted to hospital with mental status changes in this patient which are likely multifactorial with possible urinary tract infection that has been adequately treated and now seems to have worsening pancytopenia with concern for possible bone marrow disease, for which the patient did have a bone marrow aspirate and is being managed closely by Hematology/Oncology. We will monitor the patient closely off antibiotic therapy. If any new fever or change in clinical condition culture and start appropriate antibiotics. Continue with supportive care. MMODL / IJN: [id number] /
[2019-10-24] MEDS: POTASSIUM CHLORIDE 10 MEQ in WATER FOR INJECTION 1 100ML.BAG IVPB SCH ×5 (01:31→18:48)
[2019-10-24] MEDS: LORazepam 1 MG TAB PO PRN ×4 (02:02→23:55)
[2019-10-24] MEDS: Acetaminophen-Codeine 300-30mg TAB PO PRN ×3 (02:30→23:54)
[2019-10-24 05:58] LABS: Glucose,Whole Blood 197 mg/dL (75-99)
[2019-10-24 06:21] LABS: Anisocytosis Moderate; HCT 23.3 % (34.0-46.0); HGB 7.8 gm/dL (11.4-16.0); MCH 31.5 pg (25.0-35.0); MCHC 33.4 g/dL (31.0-37.0); MCV 94.3 fL (80.0-100.0); Macrocytosis Moderate; Mean Platelet Volume 10.8; Poikilocytosis Slight; RBC 2.47 m/uL (3.80-5.40); RDW 23.6 % (11.5-15.5)
[2019-10-24 06:24] LABS: WBC 0.6 k/uL (3.8-10.6)
[2019-10-24 06:25] LABS: Albumin 2.8 g/dL (3.5-5.0); Magnesium 1.3 mg/dL (1.6-2.3); Phosphorus 4.4 mg/dL (2.5-4.5); Potassium 3.2 mmol/L (3.5-5.1); Total Bilirubin 1.8 mg/dL (0.2-1.3); Total Protein 5.4 g/dL (6.3-8.2); Uric Acid 6.4 mg/dL (3.7-7.4)
[2019-10-24 06:26] LABS: Platelet Count 11 k/uL (150-450)
[2019-10-24 06:59] LABS: Polychromasia Present
[2019-10-24] MEDS: CITALOPRAM HYDROBROMIDE 20 MG TAB PO SCH ×2 (07:03→09:38)
[2019-10-24] MEDS: DIGOXIN 125 MCG TAB PO SCH ×2 (07:03→09:38)
[2019-10-24] MEDS: MIDODRINE 5 MG TAB PO SCH ×3 (07:03→16:49)
[2019-10-24] MEDS: CALCIUM CARB-VIT D 500MG-200UN 1 EACH TAB PO SCH ×3 (07:03→16:57)
[2019-10-24] MEDS: INSULIN ASPART (NovoLOG) 100 UNIT/ML VIAL SQ SCH ×4 (07:04→20:58)
[2019-10-24] MEDS: SALT AND SODA MOUTHWASH 1,000 ML PO SCH ×6 (07:05→23:37)
--- NOTE | 2019-10-24 09:15 | P.GSCN ---
History of Present Illness Consult date: 10/24/19 History of present illness: This is a 64-year-old female who asked to see for possible hydronephrosis. She is in the hospital for pancytopenia which was felt to be due to antineoplastic drugs for her AML. She was found to have renal insufficiency upon admission. It has normalized. She had an ultrasound ordered by nephrology which showed some left-sided hydronephrosis. I computed tomography scan was ordered yesterday kidney stone protocol that shows a 4 mm upper to mid ureteral stone. Mild hydronephrosis associated with that. She had a urinalysis on admission that had a lot of white cells a. SHe had a culture that was negative. She has no history kidney stones. Denies flank pain. Overall she feels poorly. There is been no fever however she is pancytopenic. Review of Systems ROS unobtainable: due to mental status Past Medical History Past Medical History: Cancer, Diabetes Mellitus, Hyperlipidemia, Hypertension Additional Past Medical History / Comment(s): AML diagnosed 03/2019. chemo last in 2018. new dx. of GI bleed. anemia History of Any Multi-Drug Resistant Organisms: None Reported Past Surgical History: No Surgical Hx Reported Additional Past Surgical History / Comment(s): picc line. bone marrow bx x2 Past Anesthesia/Blood Transfusion Reactions: No Reported Reaction Past Psychological History: No Psychological Hx Reported Smoking Status: Never smoker Past Alcohol Use History: None Reported Past Drug Use History: None Reported - Past Family History Mother Family Medical History: Cancer Sister(s) Family Medical History: Cancer Additional Family Medical History / Comment(s): breast CA Medications and Allergies Home Medications Medication Instructions Recorded Confirmed Type Acetaminophen-Codeine 300-30mg 1 tab PO Q6H PRN 05/07/19 10/17/19 History [Tylenol w/codeine #3] Loperamide [Imodium] 2 mg PO QID PRN #30 cap 05/25/19 10/17/19 Rx Potassium Chloride Oral Liquid 20 meq PO BID 06/29/19 10/17/19 History Citalopram Hydrobromide [CeleXA] 20 mg PO DAILY@0700 09/09/19 10/17/19 History Digoxin [Lanoxin] 125 mcg PO DAILY@0700 09/09/19 10/17/19 History Enasidenib Mesylate [Idhifa] 100 mg PO DIRECTED 09/09/19 10/17/19 History Metoprolol Tartrate [Lopressor] 50 mg PO TID 09/09/19 10/17/19 History Multivitamins, Thera [Multivitamin 1 tab PO DAILY 09/09/19 10/17/19 History (formulary)] Ondansetron [Zofran] 4 mg PO Q8H PRN 09/09/19 10/17/19 History Megestrol [Megace] 800 mg PO DAILY 10/17/19 10/17/19 History Prochlorperazine [Compazine] 10 mg PO Q6H PRN 10/17/19 10/17/19 History Allergies Allergy/AdvReac Type Severity Reaction Status Date / Time latex Allergy Rash/Hives Verified 10/17/19 13:33 Surgical - Exam Vital Signs Temp Pulse Resp BP Pulse Ox 97.9 F 94 18 101/59 99 10/17/19 10:46 10/17/19 10:46 10/17/19 10:46 10/17/19 10:46 10/17/19 10:46 - General moderate distress, chronically ill, obese - ENT no hearing loss - Neck trachea midline - Respiratory normal respiratory effort - Cardiovascular Rhythm: regular - Abdomen Abdomen: soft, non tender - Psychiatric oriented to time, oriented to person, oriented to place Results - Labs 10/24/19 05:29 10/24/19 05:29 Abnormal Lab Results - Last 24 Hours (Table) 10/22/19 10/23/19 10/23/19 Range/Units 12:30 05:27 11:38 WBC 0.7 L* (3.8-10.6) k/uL RBC 1.99 L (3.80-5.40) m/uL Hgb 6.6 L* (11.4-16.0) gm/dL Hct 19.7 L* (34.0-46.0) % RDW 23.2 H (11.5-15.5) % Plt Count 25 L D (150-450) k/uL Retic Count 5.0 H (0.5-2.0) % Potassium (3.5-5.1) mmol/L BUN (7-17) mg/dL Creatinine (0.52-1.04) mg/dL Glucose (74-99) mg/dL POC Glucose (mg/dL) 166 H (75-99) mg/dL Calcium (8.4-10.2) mg/dL Magnesium (1.6-2.3) mg/dL Total Bilirubin (0.2-1.3) mg/dL Total Protein (6.3-8.2) g/dL Albumin (3.5-5.0) g/dL Crossmatch See Detail 10/23/19 10/23/19 10/24/19 Range/Units 16:35 20:14 00:51 WBC (3.8-10.6) k/uL RBC (3.80-5.40) m/uL Hgb (11.4-16.0) gm/dL Hct (34.0-46.0) % RDW (11.5-15.5) % Plt Count (150-450) k/uL Retic Count (0.5-2.0) % Potassium 3.3 L (3.5-5.1) mmol/L BUN (7-17) mg/dL Creatinine (0.52-1.04) mg/dL Glucose (74-99) mg/dL POC Glucose (mg/dL) 148 H 214 H (75-99) mg/dL Calcium (8.4-10.2) mg/dL Magnesium (1.6-2.3) mg/dL Total Bilirubin (0.2-1.3) mg/dL Total Protein (6.3-8.2) g/dL Albumin (3.5-5.0) g/dL Crossmatch 10/24/19 10/24/19 10/24/19 Range/Units 05:29 05:29 05:57 WBC 0.6 L* (3.8-10.6) k/uL RBC 2.47 L (3.80-5.40) m/uL Hgb 7.8 L (11.4-16.0) gm/dL Hct 23.3 L (34.0-46.0) % RDW 23.6 H (11.5-15.5) % Plt Count 11 L* D (150-450) k/uL Retic Count (0.5-2.0) % Potassium 3.2 L (3.5-5.1) mmol/L BUN 36 H (7-17) mg/dL Creatinine 1.06 H (0.52-1.04) mg/dL Glucose 181 H (74-99) mg/dL POC Glucose (mg/dL) 197 H (75-99) mg/dL Calcium 6.0 L* (8.4-10.2) mg/dL Magnesium 1.3 L (1.6-2.3) mg/dL Total Bilirubin 1.8 H (0.2-1.3) mg/dL Total Protein 5.4 L (6.3-8.2) g/dL Albumin 2.8 L (3.5-5.0) g/dL Crossmatch Diabetes panel 10/24/19 10/24/19 Range/Units 00:51 05:29 Sodium 140 (137-145) mmol/L Potassium 3.3 L 3.2 L (3.5-5.1) mmol/L Chloride 106 (98-107) mmol/L Carbon Dioxide 27 (22-30) mmol/L BUN 36 H (7-17) mg/dL Creatinine 1.06 H (0.52-1.04) mg/dL Glucose 181 H (74-99) mg/dL Calcium 6.0 L* (8.4-10.2) mg/dL AST 28 (14-36) U/L ALT 17 (4-34) U/L Alkaline Phosphatase 51 (38-126) U/L Total Protein 5.4 L (6.3-8.2) g/dL Albumin 2.8 L (3.5-5.0) g/dL Calcium panel 10/24/19 Range/Units 05:29 Calcium 6.0 L* (8.4-10.2) mg/dL Phosphorus 4.4 (2.5-4.5) mg/dL Albumin 2.8 L (3.5-5.0) g/dL Pituitary panel 10/24/19 10/24/19 Range/Units 00:51 05:29 Sodium 140 (137-145) mmol/L Potassium 3.3 L 3.2 L (3.5-5.1) mmol/L Chloride 106 (98-107) mmol/L Carbon Dioxide 27 (22-30) mmol/L BUN 36 H (7-17) mg/dL Creatinine 1.06 H (0.52-1.04) mg/dL Glucose 181 H (74-99) mg/dL Calcium 6.0 L* (8.4-10.2) mg/dL Adrenal panel 10/24/19 10/24/19 Range/Units 00:51 05:29 Sodium 140 (137-145) mmol/L Potassium 3.3 L 3.2 L (3.5-5.1) mmol/L Chloride 106 (98-107) mmol/L Carbon Dioxide 27 (22-30) mmol/L BUN 36 H (7-17) mg/dL Creatinine 1.06 H (0.52-1.04) mg/dL Glucose 181 H (74-99) mg/dL Calcium 6.0 L* (8.4-10.2) mg/dL Total Bilirubin 1.8 H (0.2-1.3) mg/dL AST 28 (14-36) U/L ALT 17 (4-34) U/L Alkaline Phosphatase 51 (38-126) U/L Total Protein 5.4 L (6.3-8.2) g/dL Albumin 2.8 L (3.5-5.0) g/dL - Imaging CT scan - abdomen: report reviewed, image reviewed CT scan - pelvis: report reviewed, image reviewed Assessment and Plan Assessment: Impression: Left ureteral calculus, asymptomatic. Pyuria on 10/17/2019 with negative culture. Pancytopenia due to antineoplastic drugs. Overall malaise. Recommendations: I will discuss with oncology whether her overall condition is due to the antineoplastic drugs, AML or whether he should place a stent for this kidney stone.
[2019-10-24] MEDS: MULTIVITAMINS, THERA 1 EACH TAB PO SCH (09:39)
[2019-10-24] MEDS: METOPROLOL TARTRATE 50 MG TAB PO SCH ×3 (09:39→20:58)
[2019-10-24] MEDS: DEXAMETHASONE 4 MG TAB PO SCH ×2 (09:39→20:58)
[2019-10-24] MEDS: MEGESTROL 400 MG/10 ML CUP PO SCH (09:39)
[2019-10-24] MEDS: FAMOTIDINE 20 MG TAB PO SCH (09:39)
[2019-10-24] MEDS: SODIUM CHLORIDE 0.9% 1,000 ML IV SCH ×2 (09:48→18:48)
--- NOTE | 2019-10-24 09:55 | P.PN ---
Progress Note - Text Progress Note Date: 10/24/19 The patient is in the hospital pancytopenia malaise. The etiology of this is been in uncertain. I reviewed all the notes a. There is a possibility that she is septic. She had inflamed urine with 107 and a white cells. Urine culture showed vaginal contamination. She is pancytopenic I cannot tell from her blood work whether she is septic. Given that she has inflamed urine and obstructing stone and is generally doing poorly I recommend placing a double-J catheter. I spoke with Dr. Sharp/Jimena arriaga is coming for Dr. Galeana and he concurs. I been unable to contact oncology to this point.
[2019-10-24] MEDS ORDERED: LIDOCAINE 1% 20 ML VIAL (10MG/ML) FOR IV START INTRADERMA PRN (10:25)
[2019-10-24] MEDS ORDERED: ONDANSETRON 4 MG/2 ML VIAL IVP PRN (10:25)
[2019-10-24] MEDS ORDERED: MORPHINE SULFATE 2 MG/ML SYRINGE IV PRN (10:25)
[2019-10-24] MEDS ORDERED: Potassium Replacement Protocol 1 EACH MISC MISCELLANE PRN (10:50)
[2019-10-24] MEDS ORDERED: Magnesium Replacement Protocol 1 EACH MISC MISCELLANE PRN (10:50)
--- NOTE | 2019-10-24 10:53 | P.PN ---
Progress Note - Text Progress Note Date: 10/24/[address] Carson of oncology. We discussed the situation with regards to possible sepsis from an obstructing stone with infection. We discussed the pros and cons of stent placement. He will not have his bone marrow biopsy back for several days. He did have a normal CAT scan of the brain yesterday. The possibility sepsis we will do a cystoscopy and stent placement under sedation.
[2019-10-24] MEDS ORDERED: CALCIUM GLUCONATE 2 GM in SODIUM CHLORIDE 0.9% 100 ML IVPB ONE (10:54)
--- NOTE | 2019-10-24 11:20 | P.PN ---
Subjective Progress Note Date: 10/24/19 Seen and examined for the follow-up of acute kidney injury. Lying comfortable in the bed. No nausea vomiting diarrhea. Objective - Vital Signs Vital signs: Vital Signs Temp 97.9 F 10/24/19 08:00 Pulse 105 H 10/24/19 08:00 Resp 14 10/24/19 08:00 BP 137/66 10/24/19 08:00 Pulse Ox 97 10/24/19 08:00 Intake & Output 10/23/19 10/24/19 10/24/19 18:59 06:59 18:59 Intake Total 610 0 Output Total 1000 525 625 Balance -390 -525 625 Weight 69 kg Intake: IV 300 Oral 0 Blood Product 310 Rc Irr As1 Unit 310 [id number] Output: Urine 1000 525 625 Other: Voiding Method Bedpan Bedpan Bedpan Incontinent Incontinent Incontinent # Bowel Movements 1 - Exam No acute distress Lungs clear S1-S2 heard Abdomen soft No edema - Labs CBC & Chem 7: 10/24/19 05:29 10/24/19 05:29 Labs: Abnormal Lab Results - Last 24 Hours (Table) 10/22/19 10/23/19 10/23/19 Range/Units 12:30 05:27 11:38 WBC 0.7 L* (3.8-10.6) k/uL RBC 1.99 L (3.80-5.40) m/uL Hgb 6.6 L* (11.4-16.0) gm/dL Hct 19.7 L* (34.0-46.0) % RDW 23.2 H (11.5-15.5) % Plt Count 25 L D (150-450) k/uL Retic Count 5.0 H (0.5-2.0) % Potassium (3.5-5.1) mmol/L BUN (7-17) mg/dL Creatinine (0.52-1.04) mg/dL Glucose (74-99) mg/dL POC Glucose (mg/dL) 166 H (75-99) mg/dL Calcium (8.4-10.2) mg/dL Magnesium (1.6-2.3) mg/dL Total Bilirubin (0.2-1.3) mg/dL Total Protein (6.3-8.2) g/dL Albumin (3.5-5.0) g/dL Crossmatch See Detail 10/23/19 10/23/19 10/24/19 Range/Units 16:35 20:14 00:51 WBC (3.8-10.6) k/uL RBC (3.80-5.40) m/uL Hgb (11.4-16.0) gm/dL Hct (34.0-46.0) % RDW (11.5-15.5) % Plt Count (150-450) k/uL Retic Count (0.5-2.0) % Potassium 3.3 L (3.5-5.1) mmol/L BUN (7-17) mg/dL Creatinine (0.52-1.04) mg/dL Glucose (74-99) mg/dL POC Glucose (mg/dL) 148 H 214 H (75-99) mg/dL Calcium (8.4-10.2) mg/dL Magnesium (1.6-2.3) mg/dL Total Bilirubin (0.2-1.3) mg/dL Total Protein (6.3-8.2) g/dL Albumin (3.5-5.0) g/dL Crossmatch 10/24/19 10/24/19 10/24/19 Range/Units 05:29 05:29 05:57 WBC 0.6 L* (3.8-10.6) k/uL RBC 2.47 L (3.80-5.40) m/uL Hgb 7.8 L (11.4-16.0) gm/dL Hct 23.3 L (34.0-46.0) % RDW 23.6 H (11.5-15.5) % Plt Count 11 L* D (150-450) k/uL Retic Count (0.5-2.0) % Potassium 3.2 L (3.5-5.1) mmol/L BUN 36 H (7-17) mg/dL Creatinine 1.06 H (0.52-1.04) mg/dL Glucose 181 H (74-99) mg/dL POC Glucose (mg/dL) 197 H (75-99) mg/dL Calcium 6.0 L* (8.4-10.2) mg/dL Magnesium 1.3 L (1.6-2.3) mg/dL Total Bilirubin 1.8 H (0.2-1.3) mg/dL Total Protein 5.4 L (6.3-8.2) g/dL Albumin 2.8 L (3.5-5.0) g/dL Crossmatch Assessment and Plan Assessment: #1 nonoliguric acute kidney injury secondary to ischemic ATN from acute blood loss anemia and tumor lysis syndrome. #2 pancytopenia secondary to chemotherapy #3 AML #4 hyperuricemia status post rasburicase #5 hypokalemia #6 hypocalcemia secondary to tumor lysis syndrome Plan: #1 creatinine improving, close to baseline. #2 avoid nephrotoxic agents and hypotensive episodes #3 replace potassium and magnesium, phosphorus within normal limits intact PTH is pending.
[2019-10-24] MEDS ORDERED: SODIUM CHLORIDE 0.9% 1,000 ML IV ONE (11:34)
[2019-10-24] MEDS ORDERED: PROPOFOL 10 MG/ML 20 ML VIAL IV ONE (11:53)
[2019-10-24] MEDS ORDERED: KETAMINE 10 MG/ML 20 ML VIAL ONE (11:53)
[2019-10-24] MEDS ORDERED: MIDAZOLAM 2 MG/2 ML VIAL ONE (11:53)
[2019-10-24] MEDS: SODIUM BICARBONATE TAB 650 MG TAB PO SCH (12:06)
[2019-10-24] MEDS ORDERED: IOPAMIDOL-370 50ML BTL MISCELLANE ONE (12:08)
[2019-10-24] MEDS ORDERED: IOHEXOL 350 MG/ML 50 ML in EMPTY BAG 1 BAG IRRIGATION ONE (12:15)
--- NOTE | 2019-10-24 12:16 | P.OP ---
Date of Procedure: 10/24/19 Preoperative Diagnosis: Left ureteral calculus with possible urinary tract sepsis Postoperative Diagnosis: Same, passed Procedure(s) Performed: Cystoscopy, drainage of stone out of bladder, left retrograde pyelogram Anesthesia: MAC Surgeon: Tyler Pardo Estimated Blood Loss (ml): 0 Pathology: other (Stone) Condition: critical Disposition: PACU Indications for Procedure: The patient is 64. She has AML. She is on chemotherapy. She came in with anemia and malaise. She is now having confusion. She has a stone in her mid ureter on computed tomography scan. The urine is inflamed. The question as to whether her continued malaise and this orientation is due to sepsis or due to the chemotherapy and AML. Due to her pancytopenia I am unable to assess her completely. I spoke with Dr. Carson and the decision as to place a double-J catheter to relieve the obstruction to see if this relieves potential sepsis and disorientation Description of Procedure: The patient was brought to the operating suite. She's placed on the operating table supine position. She's given some IV sedation. She's placed lithotomy position with sterile prep and drape. Cystoscopy Foroblique lens and 22-K[place]akh sheath identifies a normal urethra. Petechiae through the gonadal floor the bladder. There is no obvious tumor seen. There are multiple stone fragments in the left floor the bladder consistent with recent stone passage. Rather than place a stent I used an 8 cone-tip catheter and a left retrograde pyelogram. There is no stone in the ureter. The ureter is normal a retrograde and antegrade flow. The bladder strain stones are sent to pathology patient returned recovery in good condition Impression: The stone has passed . It appears that he disorientation is not related to sepsis based on this evaluation. No stent was placed. She only received a small amount of IV sedation.
[2019-10-24] MEDS: LACTATED RINGERS 1,000 ML IV SCH (12:23)
--- NOTE | 2019-10-24 12:37 | FL ---
EXAMINATION TYPE: FL urography retrograde DATE OF EXAM: 10/24/2019 COMPARISON: NONE HISTORY: Cystogram for left ureteral calculus TECHNIQUE: Fluoroscopy. FINDINGS: Fluoroscopic guidance was provided during procedure performed by Dr. Galeana. A total of 4 6 seconds of fluoroscopic time was utilized during the procedure and 5 spot images was acquired demon strating retrograde opacification of a ureter. IMPRESSION: As Above.
[2019-10-24 12:44] LABS: Glucose,Whole Blood 132 mg/dL (75-99)
--- NOTE | 2019-10-24 13:11 | PN ---
PROGRESS NOTE DATE OF SERVICE: 10/24/2019. I am covering for Dr. Chris Galeana. She has been having some confusion. However, when I talked to her in Maldivian she seems less confused and appropriate. She moans and groans and shakes. She denies any pain or cough or shortness of breath at this time. PHYSICAL EXAMINATION: Respiratory rate is 14, pulse rate 105, temperature 97.9, blood pressure 137/66, O2 saturation on room air 97%. HEENT: Unremarkable. Chest is clear. Cardiovascular system reveals an S1, S2. Abdomen is soft. There is 1+ edema with some ecchymotic changes in the lower extremities. Her urine culture is showing no growth at this time. CT of the abdomen and pelvis shows evidence of bilateral renal calculi with a small obstructing calculus of the left ureter with mild hydronephrosis. LABS: Today reveal a white count of 0.6, hemoglobin of 7.8, platelet count of 11. Sodium 140, potassium 3.2, chloride 106, bicarb 27, BUN 36, creatinine 1.06, calcium of 6, uric acid 6.4, magnesium of 1.3, albumin of 2.8. IMPRESSION: At this time: 1. Confusion, likely secondary to metabolic encephalopathy. 2. Acute on chronic anemia. 3. History of AML status post chemotherapy with pancytopenia. 4. Thrombocytopenia. 5. Acute kidney injury with hydronephrosis on the left and renal calculi. 6. Urinary tract infection. 7. Diabetes mellitus. At this point in time, patient's prognosis is guarded. Would replace her electrolytes. Continue support with blood and blood products including platelets and RBC as needed. Agree with relief of obstruction of the left renal calculus, for which the patient has been seen by Urology and intervention is being planned. Continue antibiotics per ID. Her prognosis at this time is guarded. I did discuss my thoughts with the patient's nurse. MMODL / IJN: [id number] /
[2019-10-24] MEDS: MAGNESIUM SULFATE-D5W PMX 1 GM in DEXTROSE/WATER 1 100ML.BAG IVPB SCH ×3 (13:24→17:05)
[2019-10-24 16:50] LABS: Glucose,Whole Blood 194 mg/dL (75-99)
[2019-10-24 20:43] LABS: Glucose,Whole Blood 166 mg/dL (75-99)
[2019-10-24 23:10] LABS: African American GFR (CKD) >90 (>60 ml/min/1.73 sqM); Anion Gap 8 mmol/L; Blood Urea Nitrogen 29 mg/dL (7-17); Calcium 6.5 mg/dL (8.4-10.2); Carbon Dioxide 26 mmol/L (22-30); Chloride 105 mmol/L (98-107); Glucose 157 mg/dL (74-99); Magnesium 1.6 mg/dL (1.6-2.3); Non-African American GFR(CKD) 81 (>60 ml/min/1.73 sqM); Sodium 139 mmol/L (137-145)
[2019-10-25 06:35] LABS: Anisocytosis Moderate; HCT 20.4 % (34.0-46.0); MCH 32.6 pg (25.0-35.0); MCHC 34.3 g/dL (31.0-37.0); MCV 94.9 fL (80.0-100.0); Macrocytosis Moderate; Mean Platelet Volume 8.8; RBC 2.15 m/uL (3.80-5.40)
[2019-10-25] MEDS: CITALOPRAM HYDROBROMIDE 20 MG TAB PO SCH (06:37)
[2019-10-25] MEDS: INSULIN ASPART (NovoLOG) 100 UNIT/ML VIAL SQ SCH ×4 (06:37→22:13)
[2019-10-25] MEDS: DIGOXIN 125 MCG TAB PO SCH (06:37)
[2019-10-25] MEDS: CALCIUM CARB-VIT D 500MG-200UN 1 EACH TAB PO SCH ×2 (06:37→16:11)
[2019-10-25] MEDS: MIDODRINE 5 MG TAB PO SCH ×2 (06:38→17:09)
[2019-10-25] MEDS: SALT AND SODA MOUTHWASH 1,000 ML PO SCH ×5 (06:38→23:26)
[2019-10-25 06:43] LABS: Glucose,Whole Blood 177 mg/dL (75-99)
[2019-10-25 06:47] LABS: Platelet Count 4 k/uL (150-450)
[2019-10-25 06:53] LABS: ALT 17 U/L (4-34); AST 28 U/L (14-36); African American GFR (CKD) >90 (>60 ml/min/1.73 sqM); Albumin 2.7 g/dL (3.5-5.0); Alkaline Phosphatase 46 U/L (38-126); Anion Gap 4 mmol/L; Blood Urea Nitrogen 26 mg/dL (7-17); Carbon Dioxide 31 mmol/L (22-30); Chloride 103 mmol/L (98-107); Glucose 158 mg/dL (74-99); Magnesium 1.4 mg/dL (1.6-2.3); Non-African American GFR(CKD) 89 (>60 ml/min/1.73 sqM); Sodium 138 mmol/L (137-145); Total Bilirubin 2.1 mg/dL (0.2-1.3); Total Protein 5.1 g/dL (6.3-8.2)
[2019-10-25 06:55] LABS: Poikilocytosis (M) Present; Target Cells Present
[2019-10-25 07:14] LABS: Calcium 6.3 mg/dL (8.4-10.2); Potassium 2.7 mmol/L (3.5-5.1)
[2019-10-25 07:22] LABS: WBC 0.3 k/uL (3.8-10.6)
[2019-10-25] MEDS: Acetaminophen-Codeine 300-30mg TAB PO PRN ×2 (08:38→16:09)
[2019-10-25] MEDS: SODIUM CHLORIDE 0.9% 1,000 ML IV SCH ×2 (08:38→22:13)
[2019-10-25] MEDS: FAMOTIDINE 20 MG TAB PO SCH (08:39)
[2019-10-25] MEDS: METOPROLOL TARTRATE 50 MG TAB PO SCH ×3 (08:39→22:05)
[2019-10-25] MEDS: DEXAMETHASONE 4 MG TAB PO SCH ×2 (08:40→22:06)
[2019-10-25] MEDS: MULTIVITAMINS, THERA 1 EACH TAB PO SCH (08:40)
[2019-10-25] MEDS: MEGESTROL 400 MG/10 ML CUP PO SCH (08:42)
[2019-10-25] MEDS ORDERED: Potassium Replacement Protocol 1 EACH MISC MISCELLANE PRN ×2 (08:51→18:44)
[2019-10-25] MEDS ORDERED: Magnesium Replacement Protocol 1 EACH MISC MISCELLANE PRN (08:51)
[2019-10-25] MEDS: LORazepam 1 MG TAB PO PRN ×2 (09:30→14:40)
[2019-10-25] MEDS ORDERED: CALCIUM GLUCONATE 1 GM in SODIUM CHLORIDE 0.9% 100 ML IVPB ONE (10:03)
--- NOTE | 2019-10-25 10:03 | P.PN ---
Subjective Patient is seen in follow-up for acute kidney injury, now resolved. She has been voiding. Oral intake is fair. No vomiting or diarrhea. No chest pain or shortness of breath. Patient is moaning but denies pain. Vital signs are stable. General: The patient appeared well nourished and normally developed. HEENT: Head exam is unremarkable. Neck is without jugular venous distension. LUNGS: Lungs are clear to auscultation and percussion. Breath sounds decreased. HEART: Rate and Rhythm are regular. First and second heart sounds normal. No murmurs, rubs or gallops. ABDOMEN: Abdominal exam reveals normal bowel sounds. Non-tender and non-diste nded. No evidence of peritonitis. EXTREMITITES: No clubbing, cyanosis, or edema. Objective - Vital Signs Vital signs: Vital Signs Temp 98.2 F 10/25/19 08:00 Pulse 86 10/25/19 08:00 Resp 12 10/25/19 08:00 BP 123/70 10/25/19 08:00 Pulse Ox 100 10/25/19 08:00 Intake & Output 10/24/19 10/25/19 10/25/19 18:59 06:59 18:59 Intake Total 451 Output Total 1425 850 Balance -974 -850 Weight 69 kg 71.5 kg Intake: IV 401 Oral 50 Output: Urine 1425 850 Estimated Blood Loss 0 Other: Voiding Method Bedpan Diaper Incontinent Incontinent # Voids 1 - Labs CBC & Chem 7: 10/25/19 05:41 10/25/19 05:41 Labs: Abnormal Lab Results - Last 24 Hours (Table) 10/24/19 10/24/19 10/24/19 Range/Units 12:43 16:40 20:41 WBC (3.8-10.6) k/uL RBC (3.80-5.40) m/uL Hgb (11.4-16.0) gm/dL Hct (34.0-46.0) % RDW (11.5-15.5) % Plt Count (150-450) k/uL Potassium (3.5-5.1) mmol/L Carbon Dioxide (22-30) mmol/L BUN (7-17) mg/dL Glucose (74-99) mg/dL POC Glucose (mg/dL) 132 H 194 H 166 H (75-99) mg/dL Calcium (8.4-10.2) mg/dL Magnesium (1.6-2.3) mg/dL Total Bilirubin (0.2-1.3) mg/dL Total Protein (6.3-8.2) g/dL Albumin (3.5-5.0) g/dL 10/24/19 10/25/19 10/25/19 Range/Units 22:25 05:41 05:41 WBC 0.3 L* (3.8-10.6) k/uL RBC 2.15 L (3.80-5.40) m/uL Hgb 7.0 L (11.4-16.0) gm/dL Hct 20.4 L (34.0-46.0) % RDW 23.0 H (11.5-15.5) % Plt Count 4 L* D (150-450) k/uL Potassium 3.0 L 2.7 L* (3.5-5.1) mmol/L Carbon Dioxide 31 H (22-30) mmol/L BUN 29 H 26 H (7-17) mg/dL Glucose 157 H 158 H (74-99) mg/dL POC Glucose (mg/dL) (75-99) mg/dL Calcium 6.5 L 6.3 L* (8.4-10.2) mg/dL Magnesium 1.4 L (1.6-2.3) mg/dL Total Bilirubin 2.1 H (0.2-1.3) mg/dL Total Protein 5.1 L (6.3-8.2) g/dL Albumin 2.7 L (3.5-5.0) g/dL 10/25/19 Range/Units 06:32 WBC (3.8-10.6) k/uL RBC (3.80-5.40) m/uL Hgb (11.4-16.0) gm/dL Hct (34.0-46.0) % RDW (11.5-15.5) % Plt Count (150-450) k/uL Potassium (3.5-5.1) mmol/L Carbon Dioxide (22-30) mmol/L BUN (7-17) mg/dL Glucose (74-99) mg/dL POC Glucose (mg/dL) 177 H (75-99) mg/dL Calcium (8.4-10.2) mg/dL Magnesium (1.6-2.3) mg/dL Total Bilirubin (0.2-1.3) mg/dL Total Protein (6.3-8.2) g/dL Albumin (3.5-5.0) g/dL Assessment and Plan Plan: Assessment: 1. Acute kidney injury secondary to ATN secondary to acute blood loss anemia and tumor lysis syndrome. Resolved. No significant hydronephrosis noted on [facility] ultrasound. 2. Pancytopenia secondary to chemotherapy. Status post blood transfusion. 3. Metabolic acidosis secondary to acute kidney injury and IV fluids. Resolved. 4. AML. 5. Hyperuricemia secondary to tumor lysis syndrome status post rasburicase. Better. 6. Hypokalemia secondary to intracellular shifting from IV bicarb and poor oral intake. 7. Hypomagnesemia from poor oral intake. 8. Hypocalcemia secondary to acute kidney injury and tumor lysis. Corrected calcium 7.3. Maintained on Os-Arben D. Plan: Maintain normal saline at 75 mL an hour. Avoid nephrotoxins. Replace potassium. 80 mEq today. Replace magnesium. 3 g IV today. Repeat electrolytes in the morning.
[2019-10-25] MEDS: MAGNESIUM SULFATE-D5W PMX 1 GM in DEXTROSE/WATER 1 100ML.BAG IVPB SCH ×3 (10:49→14:21)
[2019-10-25] MEDS: POTASSIUM CHLORIDE ER 20 MEQ TAB.ER PO SCH ×5 (10:49→23:25)
--- NOTE | 2019-10-25 12:03 | PN ---
PROGRESS NOTE DATE OF SERVICE: 10/25/2019 Patient is a 64-year-old female who is seen lying in bed. Patient does cry out for her mother. Upon entering the room and speaking to the patient, patient responds appropriately, knows where she is at. Denies any pain. Denies any shortness of breath. However, upon leaving the room, patient after 2 or 3 minutes does start to cry out for her mother or just cries out. Patient is hemodynamically stable, afebrile, in no acute distress. PHYSICAL EXAMINATION: VITAL SIGNS: Temp is 98.2, heart rate is 86, respiratory rate is 12, blood pressure is 123/70, O2 saturation is 100% on room air. HEENT. Head is normocephalic, atraumatic. NECK: Supple. Trachea is midline. LUNGS: Clear. No rales or wheezes. HEART: S1, S2 are heard. Not tachycardic. ABDOMEN: Soft. Bowel sounds are positive. EXTREMITIES: With no edema. NEUROLOGIC: Patient responds appropriately, however, it is crying out when no one is in the room. LABS: White count is 0.3, hemoglobin is 7.0, hematocrit is 20.4 with 4000 platelets, sodium is 138, potassium is 2.7, chloride is 103, CO2 is 31, anion gap is 4, BUN is 26, creatinine 0.72, glucose is 158, calcium is 6.3, magnesium is 1.4, total bilirubin is 2.1, AST is 28, ALT is 17, alkaline phosphatase is 46, total protein is 5.1, albumin is 2.7. IMAGING: No new imaging to review. IMPRESSION: 1. Confusion, possibly secondary to metabolic encephalopathy. 2. Acute on chronic anemia. 3. History of AML, status post chemotherapy with pancytopenia. 4. Thrombocytopenia. 5. Acute kidney injury with hydronephrosis on the left and renal calculi. 6. Urinary tract infection. 7. Diabetes mellitus. PLAN: Continue current medications, which have been reviewed. Replace potassium and magnesium. Continue support with blood and blood products including plate for platelets and RBC per Hematology. Continue antibiotics per Infectious Disease. Continue GI prophylaxis and we will follow patient closely, making further changes as necessary. MMODL / IJN: [id number] /
[2019-10-25] MEDS: LACTATED RINGERS 1,000 ML IV SCH (12:42)
[2019-10-25 16:32] LABS: Glucose,Whole Blood 224 mg/dL (75-99)
[2019-10-25 20:42] LABS: Glucose,Whole Blood 162 mg/dL (75-99)
[2019-10-26] MEDS: LORazepam 1 MG TAB PO PRN ×3 (01:26→13:24)
[2019-10-26] MEDS: Acetaminophen-Codeine 300-30mg TAB PO PRN ×3 (01:26→12:57)
[2019-10-26 06:12] LABS: Glucose,Whole Blood 155 mg/dL (75-99)
[2019-10-26] MEDS: DIGOXIN 125 MCG TAB PO SCH (06:16)
[2019-10-26] MEDS: CITALOPRAM HYDROBROMIDE 20 MG TAB PO SCH (06:16)
[2019-10-26] MEDS: CALCIUM CARB-VIT D 500MG-200UN 1 EACH TAB PO SCH (06:16)
[2019-10-26] MEDS: INSULIN ASPART (NovoLOG) 100 UNIT/ML VIAL SQ SCH ×2 (06:16→12:43)
[2019-10-26] MEDS: MIDODRINE 5 MG TAB PO SCH (06:17)
[2019-10-26] MEDS: SALT AND SODA MOUTHWASH 1,000 ML PO SCH ×2 (06:17→17:03)
[2019-10-26 07:56] LABS: African American GFR (CKD) >90 (>60 ml/min/1.73 sqM); Anion Gap 9 mmol/L; Anisocytosis Moderate; Blood Urea Nitrogen 21 mg/dL (7-17); Calcium 6.7 mg/dL (8.4-10.2); Carbon Dioxide 28 mmol/L (22-30); Chloride 103 mmol/L (98-107); Glucose 141 mg/dL (74-99); HCT 25.8 % (34.0-46.0); MCHC 33.5 g/dL (31.0-37.0); MCV 95.5 fL (80.0-100.0); Macrocytosis Moderate; Magnesium 1.4 mg/dL (1.6-2.3); Mean Platelet Volume 15.8; Non-African American GFR(CKD) 81 (>60 ml/min/1.73 sqM); Potassium 3.4 mmol/L (3.5-5.1); RDW 22.5 % (11.5-15.5); Sodium 140 mmol/L (137-145)
[2019-10-26 07:59] LABS: Platelet Count 6 k/uL (150-450); WBC 0.4 k/uL (3.8-10.6)
[2019-10-26 08:00] LABS: HGB 8.6 gm/dL (11.4-16.0)
[2019-10-26] MEDS ORDERED: Magnesium Replacement Protocol 1 EACH MISC MISCELLANE PRN (08:04)
[2019-10-26] MEDS ORDERED: Potassium Replacement Protocol 1 EACH MISC MISCELLANE PRN (08:04)
--- NOTE | 2019-10-26 08:15 | P.PN ---
Subjective Progress Note Date: 10/26/19 The patient had cysto with retrograde It was questioned whether the stone she was passing was associated with pyonephrosis and contributing to her neurological changes When i did the cysto the stone was in the bladder and the hydro resolved. HEr cr has improved notably. SHe still has mental status ch anges and neurological evaluation is being sought Objective - Vital Signs Vital signs: Vital Signs Temp 98.6 F 10/26/19 04:00 Pulse 90 10/26/19 04:00 Resp 20 10/26/19 04:00 BP 112/71 10/26/19 04:00 Pulse Ox 98 10/26/19 04:00 Intake & Output 10/25/19 10/26/19 10/26/19 18:59 06:59 18:59 Intake Total 386 Output Total 600 600 Balance -214 -600 Weight 70.5 kg Intake: Oral 180 Blood Product 206 Platelet Irr Pheresis 3 206 Acda Unit [id number] Output: Urine 600 600 Other: Voiding Method Diaper Incontinent # Voids 2 - Labs CBC & Chem 7: 10/26/19 06:06 10/26/19 06:06 Labs: Abnormal Lab Results - Last 24 Hours (Table) 10/24/19 10/25/19 10/25/19 Range/Units 05:29 16:31 16:52 WBC (3.8-10.6) k/uL RBC (3.80-5.40) m/uL Hgb (11.4-16.0) gm/dL Hct (34.0-46.0) % RDW (11.5-15.5) % Plt Count (150-450) k/uL Potassium 3.3 L (3.5-5.1) mmol/L BUN (7-17) mg/dL Glucose (74-99) mg/dL POC Glucose (mg/dL) 224 H (75-99) mg/dL Calcium (8.4-10.2) mg/dL Magnesium (1.6-2.3) mg/dL PTH Intact 319.3 H (14.0-72.0) pg/mL 10/25/19 10/25/19 10/26/19 Range/Units 20:41 22:00 06:06 WBC (3.8-10.6) k/uL RBC (3.80-5.40) m/uL Hgb (11.4-16.0) gm/dL Hct (34.0-46.0) % RDW (11.5-15.5) % Plt Count (150-450) k/uL Potassium 3.2 L 3.4 L (3.5-5.1) mmol/L BUN 21 H (7-17) mg/dL Glucose 141 H (74-99) mg/dL POC Glucose (mg/dL) 162 H (75-99) mg/dL Calcium 6.7 L (8.4-10.2) mg/dL Magnesium 1.4 L (1.6-2.3) mg/dL PTH Intact (14.0-72.0) pg/mL 10/26/19 10/26/19 Range/Units 06:06 06:11 WBC 0.4 L* (3.8-10.6) k/uL RBC 2.70 L (3.80-5.40) m/uL Hgb 8.6 L D (11.4-16.0) gm/dL Hct 25.8 L (34.0-46.0) % RDW 22.5 H (11.5-15.5) % Plt Count 6 L* (150-450) k/uL Potassium (3.5-5.1) mmol/L BUN (7-17) mg/dL Glucose (74-99) mg/dL POC Glucose (mg/dL) 155 H (75-99) mg/dL Calcium (8.4-10.2) mg/dL Magnesium (1.6-2.3) mg/dL PTH Intact (14.0-72.0) pg/mL
[2019-10-26 08:56] LABS: Target Cells Present
[2019-10-26] MEDS: MAGNESIUM SULFATE-D5W PMX 1 GM in DEXTROSE/WATER 1 100ML.BAG IVPB SCH ×3 (09:17→17:03)
[2019-10-26] MEDS: METOPROLOL TARTRATE 50 MG TAB PO SCH ×2 (09:18→17:03)
[2019-10-26] MEDS: POTASSIUM CHLORIDE ER 20 MEQ TAB.ER PO SCH ×2 (09:18→12:43)
[2019-10-26] MEDS: FAMOTIDINE 20 MG TAB PO SCH (09:18)
[2019-10-26] MEDS: MEGESTROL 400 MG/10 ML CUP PO SCH (09:19)
[2019-10-26] MEDS: MULTIVITAMINS, THERA 1 EACH TAB PO SCH (09:19)
[2019-10-26] MEDS: DEXAMETHASONE 4 MG TAB PO SCH (09:21)
--- NOTE | 2019-10-26 11:19 | P.CNNES ---
History of Present Illness Consult date: 10/24/19 Reason for Consult: Increasing AMS History of Present Illness: HISTORY OF PRESENT ILLNESS: Thank you for allowing me to evaluate Ms. Mey Hernandez. Ms. Hernandez is a 64 year-old woman with PMHx of AML (diagnosed in 03/2019), diab etes, HLD, HTN, who presented to [facility] on 10/17/19 for complaints of generalized weakness, consulting Neurology for AMS. RN is at bedside for corroborating information. No family at bedside. RN states that patient was mentating much better on Tuesday, but over the course of a couple of days, she has not been responding appropriately as she had and not answering questions appropriately. PAST MEDICAL HISTORY: AML (diagnosed in 03/2019), diabetes, HLD, HTN PAST SURGICAL HISTORY: None reported HOME MEDICATIONS: KCl, digoxin, Idhifa (discontinued recently due to low blood count), metoprolol, zofran, MVT, compazine, megace, citalopram Inpatient MEDS: midodrine, citalopram, dexamethasone (since 10/19/19) ALLERGIES: Latex SOCIAL HISTORY: Never smoker FAMILY HISTORY: Sister with breast cancer. Mother also with cancer. REVIEW OF SYSTEMS: The 14 systems are reviewed and no additional points are identified compared to the review of systems documented history and physical PHYSICAL EXAMINATION: VITAL SIGNS: T 97.9 HR 105 RR 14 BP 137/66 O2 sat 97% on RA GEN.: Patient just returned from cystoscopy procedure, received some benzo HEENT: NCAT, sclera without icterus NECK: Supple SKIN AND EXTREMITIES: Warm to touch NEURO: MENTAL STATUS: Patient alert and oriented to self and time. Unable to name place and the current president. Answers in 1-2 words, follows some commands such as showing 2 fingers, protruding tongue and moving her extremities. CRANIAL NERVES II THROUGH XII: II: Pupils are equal and reactive to light symmetrically. III, IV, : Eyes are closed most of the time. Does open eyes to command but closes soon after. No ptosis. VII. No clear facial asymmetry. XII : Tongue midline MOTOR: Normal bulk, decreased tone. Able to lift b/l UE against gravity but briefly. Barely able to bend knees bilaterally. SENSORY: Grimaces to pain in all 4 extremities REFLEXES: 2+ throughout. Toes are downgoing. COORDINATION/GAIT: Deferred DIAGNOSTIC TESTING: LABORATORY: WBC 0.6 Hgb 7.8 Platelet 23.6 NA 140 K 3.2 Cl 106 CO2 27 BUN 36 Cr 1.06 glucose 181 AST 28 ALT 17 AlkPhos 51 IMAGING: CT Head w/o contrast 10/23/19: No acute intracranial abnormality ASSESSMENT: 64 year-old woman with PMHx of AML (diagnosed in 03/2019), diabetes, HLD, HTN, who presented to [facility] on 10/17/19 for complaints of generalized weakness, consulting Neurology for AMS. It appears that patient has advanced AML, at this time not on chemotherapy due to very low blood count. Altered mental status could be from metabolic encephalopathy, but cannot rule out TRANSFORMATION ANALYST involvement of her AML. RECOMMENDATIONS: 1. Routine EEG 2. MRI brain w/ and w/o contrast when patient stable Past Medical History Past Medical History: Cancer, Diabetes Mellitus, Hyperlipidemia, Hypertension Additional Past Medical History / Comment(s): AML diagnosed 03/2019. chemo last in 2018. new dx. of GI bleed. anemia History of Any Multi-Drug Resistant Organisms: None Reported Past Surgical History: No Surgical Hx Reported Additional Past Surgical History / Comment(s): picc line. bone marrow bx x2 Past Anesthesia/Blood Transfusion Reactions: No Reported Reaction Past Psychological History: No Psychological Hx Reported Smoking Status: Never smoker Past Alcohol Use History: None Reported Past Drug Use History: None Reported - Past Family History Mother Family Medical History: Cancer Sister(s) Family Medical History: Cancer Additional Family Medical History / Comment(s): breast CA Medications and Allergies Home Medications Medication Instructions Recorded Confirmed Type Acetaminophen-Codeine 300-30mg 1 tab PO Q6H PRN 05/07/19 10/17/19 History [Tylenol w/codeine #3] Loperamide [Imodium] 2 mg PO QID PRN #30 cap 05/25/19 10/17/19 Rx Potassium Chloride Oral Liquid 20 meq PO BID 06/29/19 10/17/19 History Citalopram Hydrobromide [CeleXA] 20 mg PO DAILY@0700 09/09/19 10/17/19 History Digoxin [Lanoxin] 125 mcg PO DAILY@0700 09/09/19 10/17/19 History Enasidenib Mesylate [Idhifa] 100 mg PO DIRECTED 09/09/19 10/17/19 History Metoprolol Tartrate [Lopressor] 50 mg PO TID 09/09/19 10/17/19 History Multivitamins, Thera [Multivitamin 1 tab PO DAILY 09/09/19 10/17/19 History (formulary)] Ondansetron [Zofran] 4 mg PO Q8H PRN 09/09/19 10/17/19 History Megestrol [Megace] 800 mg PO DAILY 10/17/19 10/17/19 History Prochlorperazine [Compazine] 10 mg PO Q6H PRN 10/17/19 10/17/19 History Allergies Allergy/AdvReac Type Severity Reaction Status Date / Time latex Allergy Rash/Hives Verified 10/17/19 13:33 Physical Examination - Vital Signs Vital Signs: Vital Signs Temp Pulse Pulse Resp BP BP Pulse Ox 10/24/19 08:00 97.9 F 105 H 14 137/66 97 10/24/19 04:00 97.6 F 70 18 148/75 99 10/24/19 00:00 97.8 F 66 16 153/76 100 10/23/19 20:00 97.6 F 103 H 20 143/72 98 10/23/19 18:33 97.7 F 88 16 157/75 98 10/23/19 16:15 98 18 10/23/19 16:00 98 18 157/79 98 10/23/19 15:49 97.7 F 80 16 132/66 100 10/23/19 15:19 97.6 F 62 12 134/60 99 10/23/19 15:09 97.6 F 60 12 125/63 97 10/23/19 10:55 85 18 148/76 99 Intake and Output 10/23/19 10/24/19 10/24/19 22:59 06:59 14:59 Intake Total 310 0 Output Total 200 525 Balance 110 -525 0 Intake: Oral 0 Blood Product 310 Rc Irr As1 Unit 310 [id number] Output: Urine 200 525 Other: Voiding Method Bedpan Bedpan Incontinent Incontinent Weight 69 kg Results - Laboratory Findings CBC and BMP: 10/26/19 06:06 10/26/19 06:06 Abnormal Lab Findings: Abnormal Labs 10/17/19 10/17/19 10/17/19 11:04 11:04 11:04 WBC RBC 1.79 L Hgb 6.3 L* D Hct 18.5 L* MCV 103.3 H D MCH RDW 24.4 H Plt Count 13 L* D Neutrophils # (Manual) Lymphocytes # (Manual) Monocytes # (Manual) 3.82 H Metamyelocytes # (Man) 0.08 H Myelocytes # (Manual) Nucleated RBCs 9 H Macrocytosis Marked A Retic Count Haptoglobin Sodium 136 L Potassium 5.7 H Chloride Carbon Dioxide 20 L BUN 60 H Creatinine 3.72 H Glucose 128 H POC Glucose (mg/dL) Uric Acid Calcium 7.7 L Phosphorus Magnesium Iron TIBC % Saturation Ferritin Total Bilirubin 2.1 H Lactate Dehydrogenase Troponin I 0.046 H* Total Protein Albumin 3.3 L Urine Appearance Urine Protein Urine Blood Ur Leukocyte Esterase Urine RBC Urine WBC Urine WBC Clumps Amorphous Sediment Urine Bacteria Urine Mucus Stool Occult Blood Crossmatch 10/17/19 10/17/19 10/17/19 11:04 11:04 11:04 WBC RBC Hgb Hct MCV MCH RDW Plt Count Neutrophils # (Manual) Lymphocytes # (Manual) Monocytes # (Manual) Metamyelocytes # (Man) Myelocytes # (Manual) Nucleated RBCs Macrocytosis Retic Count 5.9 H Haptoglobin Sodium Potassium Chloride Carbon Dioxide BUN Creatinine Glucose POC Glucose (mg/dL) Uric Acid Calcium Phosphorus Magnesium Iron 184 H TIBC 208 L % Saturation 88.46 H Ferritin 3092.8 H Total Bilirubin Lactate Dehydrogenase 954 H Troponin I Total Protein Albumin Urine Appearance Urine Protein Urine Blood Ur Leukocyte Esterase Urine RBC Urine WBC Urine WBC Clumps Amorphous Sediment Urine Bacteria Urine Mucus Stool Occult Blood Crossmatch See Detail 10/17/19 10/17/19 10/17/19 11:04 11:33 13:26 WBC RBC Hgb Hct MCV MCH RDW Plt Count Neutrophils # (Manual) Lymphocytes # (Manual) Monocytes # (Manual) Metamyelocytes # (Man) Myelocytes # (Manual) Nucleated RBCs Macrocytosis Retic Count Haptoglobin 234.0 H Sodium Potassium Chloride Carbon Dioxide BUN Creatinine Glucose POC Glucose (mg/dL) Uric Acid Calcium Phosphorus Magnesium Iron TIBC % Saturation Ferritin Total Bilirubin Lactate Dehydrogenase Troponin I Total Protein Albumin Urine Appearance Turbid H Urine Protein 1+ H Urine Blood Small H Ur Leukocyte Esterase Large H Urine RBC 7 H Urine WBC 180 H Urine WBC Clumps Many H Amorphous Sediment Few H Urine Bacteria Moderate H Urine Mucus Occasional H Stool Occult Blood Positive H Crossmatch 10/17/19 10/17/19 10/17/19 16:34 20:02 20:27 WBC RBC Hgb Hct MCV MCH RDW Plt Count Neutrophils # (Manual) Lymphocytes # (Manual) Monocytes # (Manual) Metamyelocytes # (Man) Myelocytes # (Manual) Nucleated RBCs Macrocytosis Retic Count Haptoglobin Sodium Potassium Chloride Carbon Dioxide BUN Creatinine Glucose POC Glucose (mg/dL) 128 H 133 H Uric Acid Calcium Phosphorus Magnesium Iron TIBC % Saturation Ferritin Total Bilirubin Lactate Dehydrogenase Troponin I 0.053 H* Total Protein Albumin Urine Appearance Urine Protein Urine Blood Ur Leukocyte Esterase Urine RBC Urine WBC Urine WBC Clumps Amorphous Sediment Urine Bacteria Urine Mucus Stool Occult Blood Crossmatch 10/18/19 10/18/19 10/18/19 06:18 06:18 06:18 WBC 2.9 L RBC 1.74 L Hgb 6.2 L* Hct 17.6 L* MCV 101.2 H MCH 35.4 H RDW 24.0 H Plt Count 6 L* D Neutrophils # (Manual) 0.80 L Lymphocytes # (Manual) 0.64 L Monocytes # (Manual) 1.36 H Metamyelocytes # (Man) 0.03 H Myelocytes # (Manual) 0.06 H Nucleated RBCs 22 H Macrocytosis Marked A Retic Count Haptoglobin Sodium Potassium Chloride 108 H Carbon Dioxide 20 L BUN 47 H Creatinine 3.09 H Glucose 108 H POC Glucose (mg/dL) Uric Acid 17.0 H* Calcium 6.7 L Phosphorus Magnesium Iron TIBC % Saturation Ferritin Total Bilirubin 1.8 H Lactate Dehydrogenase Troponin I Total Protein 5.5 L Albumin 2.6 L Urine Appearance Urine Protein Urine Blood Ur Leukocyte Esterase Urine RBC Urine WBC Urine WBC Clumps Amorphous Sediment Urine Bacteria Urine Mucus Stool Occult Blood Crossmatch 10/18/19 10/18/19 10/18/19 06:43 11:34 16:34 WBC RBC Hgb Hct MCV MCH RDW Plt Count Neutrophils # (Manual) Lymphocytes # (Manual) Monocytes # (Manual) Metamyelocytes # (Man) Myelocytes # (Manual) Nucleated RBCs Macrocytosis Retic Count Haptoglobin Sodium Potassium Chloride Carbon Dioxide BUN Creatinine Glucose POC Glucose (mg/dL) 117 H 114 H 101 H Uric Acid Calcium Phosphorus Magnesium Iron TIBC % Saturation Ferritin Total Bilirubin Lactate Dehydrogenase Troponin I Total Protein Albumin Urine Appearance Urine Protein Urine Blood Ur Leukocyte Esterase Urine RBC Urine WBC Urine WBC Clumps Amorphous Sediment Urine Bacteria Urine Mucus Stool Occult Blood Crossmatch 10/18/19 10/19/19 10/19/19 20:01 06:13 06:16 WBC 3.1 L RBC 1.72 L Hgb 5.7 L* Hct 17.7 L* MCV 103.3 H MCH RDW 24.0 H Plt Count 5 L* Neutrophils # (Manual) 0.65 L Lymphocytes # (Manual) Monocytes # (Manual) 1.21 H Metamyelocytes # (Man) Myelocytes # (Manual) Nucleated RBCs 8 H Macrocytosis Marked A Retic Count Haptoglobin Sodium Potassium Chloride Carbon Dioxide BUN Creatinine Glucose POC Glucose (mg/dL) 117 H 105 H Uric Acid Calcium Phosphorus Magnesium Iron TIBC % Saturation Ferritin Total Bilirubin Lactate Dehydrogenase Troponin I Total Protein Albumin Urine Appearance Urine Protein Urine Blood Ur Leukocyte Esterase Urine RBC Urine WBC Urine WBC Clumps Amorphous Sediment Urine Bacteria Urine Mucus Stool Occult Blood Crossmatch 10/19/19 10/19/19 10/19/19 06:16 06:16 12:07 WBC RBC Hgb Hct MCV MCH RDW Plt Count Neutrophils # (Manual) Lymphocytes # (Manual) Monocytes # (Manual) Metamyelocytes # (Man) Myelocytes # (Manual) Nucleated RBCs Macrocytosis Retic Count Haptoglobin Sodium Potassium Chloride 110 H Carbon Dioxide 18 L BUN 47 H Creatinine 3.26 H Glucose POC Glucose (mg/dL) 145 H Uric Acid Calcium 6.3 L* Phosphorus 4.7 H Magnesium Iron TIBC % Saturation Ferritin Total Bilirubin Lactate Dehydrogenase Troponin I Total Protein 5.2 L Albumin 2.4 L Urine Appearance Urine Protein Urine Blood Ur Leukocyte Esterase Urine RBC Urine WBC Urine WBC Clumps Amorphous Sediment Urine Bacteria Urine Mucus Stool Occult Blood Crossmatch 10/19/19 10/19/19 10/20/19 16:47 20:31 05:40 WBC RBC 2.23 L Hgb 7.3 L D Hct 22.6 L MCV 101.6 H MCH RDW 24.2 H Plt Count 8 L* D Neutrophils # (Manual) 1.20 L Lymphocytes # (Manual) Monocytes # (Manual) 1.14 H Metamyelocytes # (Man) 0.04 H Myelocytes # (Manual) Nucleated RBCs 8 H Macrocytosis Marked A Retic Count Haptoglobin Sodium Potassium Chloride Carbon Dioxide BUN Creatinine Glucose POC Glucose (mg/dL) 147 H 160 H Uric Acid Calcium Phosphorus Magnesium Iron TIBC % Saturation Ferritin Total Bilirubin Lactate Dehydrogenase Troponin I Total Protein Albumin Urine Appearance Urine Protein Urine Blood Ur Leukocyte Esterase Urine RBC Urine WBC Urine WBC Clumps Amorphous Sediment Urine Bacteria Urine Mucus Stool Occult Blood Crossmatch 10/20/19 10/20/19 10/20/19 05:40 05:58 11:38 WBC RBC Hgb Hct MCV MCH RDW Plt Count Neutrophils # (Manual) Lymphocytes # (Manual) Monocytes # (Manual) Metamyelocytes # (Man) Myelocytes # (Manual) Nucleated RBCs Macrocytosis Retic Count Haptoglobin Sodium Potassium Chloride 111 H Carbon Dioxide 15 L BUN 47 H Creatinine 3.24 H Glucose 156 H POC Glucose (mg/dL) 164 H 210 H Uric Acid 1.3 L Calcium 6.5 L Phosphorus Magnesium Iron TIBC % Saturation Ferritin Total Bilirubin Lactate Dehydrogenase Troponin I Total Protein 5.7 L Albumin 2.8 L Urine Appearance Urine Protein Urine Blood Ur Leukocyte Esterase Urine RBC Urine WBC Urine WBC Clumps Amorphous Sediment Urine Bacteria Urine Mucus Stool Occult Blood Crossmatch 10/20/19 10/21/19 10/21/19 16:34 05:33 05:33 WBC 1.5 L RBC 2.34 L Hgb 7.7 L Hct 22.9 L MCV MCH RDW 23.8 H Plt Count 7 L* Neutrophils # (Manual) 0.80 L Lymphocytes # (Manual) 0.23 L Monocytes # (Manual) Metamyelocytes # (Man) 0.02 H Myelocytes # (Manual) Nucleated RBCs 17 H Macrocytosis Retic Count Haptoglobin Sodium Potassium 3.3 L Chloride Carbon Dioxide BUN 43 H Creatinine 2.38 H Glucose 169 H POC Glucose (mg/dL) 219 H Uric Acid 2.4 L Calcium 6.3 L* Phosphorus Magnesium 1.4 L Iron TIBC % Saturation Ferritin Total Bilirubin Lactate Dehydrogenase Troponin I Total Protein 5.6 L Albumin 2.8 L Urine Appearance Urine Protein Urine Blood Ur Leukocyte Esterase Urine RBC Urine WBC Urine WBC Clumps Amorphous Sediment Urine Bacteria Urine Mucus Stool Occult Blood Crossmatch 10/21/19 10/21/19 10/21/19 05:56 11:35 16:33 WBC RBC Hgb Hct MCV MCH RDW Plt Count Neutrophils # (Manual) Lymphocytes # (Manual) Monocytes # (Manual) Metamyelocytes # (Man) Myelocytes # (Manual) Nucleated RBCs Macrocytosis Retic Count Haptoglobin Sodium Potassium Chloride Carbon Dioxide BUN Creatinine Glucose POC Glucose (mg/dL) 186 H 174 H 195 H Uric Acid Calcium Phosphorus Magnesium Iron TIBC % Saturation Ferritin Total Bilirubin Lactate Dehydrogenase Troponin I Total Protein Albumin Urine Appearance Urine Protein Urine Blood Ur Leukocyte Esterase Urine RBC Urine WBC Urine WBC Clumps Amorphous Sediment Urine Bacteria Urine Mucus Stool Occult Blood Crossmatch 10/21/19 10/22/19 10/22/19 20:48 05:40 05:40 WBC 0.9 L* RBC 2.05 L Hgb 7.1 L Hct 20.7 L MCV 101.1 H MCH RDW 23.5 H Plt Count 5 L* Neutrophils # (Manual) Lymphocytes # (Manual) Monocytes # (Manual) Metamyelocytes # (Man) Myelocytes # (Manual) Nucleated RBCs Macrocytosis Marked A Retic Count Haptoglobin Sodium Potassium 3.2 L Chloride Carbon Dioxide BUN 40 H Creatinine 1.61 H Glucose 166 H POC Glucose (mg/dL) 207 H Uric Acid Calcium 6.2 L* Phosphorus Magnesium Iron TIBC % Saturation Ferritin Total Bilirubin 1.4 H Lactate Dehydrogenase Troponin I Total Protein 5.3 L Albumin 2.7 L Urine Appearance Urine Protein Urine Blood Ur Leukocyte Esterase Urine RBC Urine WBC Urine WBC Clumps Amorphous Sediment Urine Bacteria Urine Mucus Stool Occult Blood Crossmatch 10/22/19 10/22/19 10/22/19 06:10 08:30 11:32 WBC RBC Hgb Hct MCV MCH RDW Plt Count Neutrophils # (Manual) Lymphocytes # (Manual) Monocytes # (Manual) Metamyelocytes # (Man) Myelocytes # (Manual) Nucleated RBCs Macrocytosis Retic Count Haptoglobin Sodium Potassium 3.3 L Chloride Carbon Dioxide BUN 39 H Creatinine 1.56 H Glucose 168 H POC Glucose (mg/dL) 175 H 197 H Uric Acid Calcium 6.3 L* Phosphorus Magnesium Iron TIBC % Saturation Ferritin Total Bilirubin Lactate Dehydrogenase Troponin I Total Protein Albumin Urine Appearance Urine Protein Urine Blood Ur Leukocyte Esterase Urine RBC Urine WBC Urine WBC Clumps Amorphous Sediment Urine Bacteria Urine Mucus Stool Occult Blood Crossmatch 10/22/19 10/22/19 10/22/19 12:30 16:33 20:54 WBC RBC Hgb Hct MCV MCH RDW Plt Count Neutrophils # (Manual) Lymphocytes # (Manual) Monocytes # (Manual) Metamyelocytes # (Man) Myelocytes # (Manual) Nucleated RBCs Macrocytosis Retic Count Haptoglobin Sodium Potassium Chloride Carbon Dioxide BUN Creatinine Glucose POC Glucose (mg/dL) 211 H 191 H Uric Acid Calcium Phosphorus Magnesium Iron TIBC % Saturation Ferritin Total Bilirubin Lactate Dehydrogenase Troponin I Total Protein Albumin Urine Appearance Urine Protein Urine Blood Ur Leukocyte Esterase Urine RBC Urine WBC Urine WBC Clumps Amorphous Sediment Urine Bacteria Urine Mucus Stool Occult Blood Crossmatch See Detail 10/23/19 10/23/19 10/23/19 05:27 05:27 06:05 WBC 0.7 L* RBC 1.99 L Hgb 6.6 L* Hct 19.7 L* MCV MCH RDW 23.2 H Plt Count 25 L D Neutrophils # (Manual) Lymphocytes # (Manual) Monocytes # (Manual) Metamyelocytes # (Man) Myelocytes # (Manual) Nucleated RBCs Macrocytosis Retic Count 5.0 H Haptoglobin Sodium Potassium 3.2 L Chloride Carbon Dioxide BUN 37 H Creatinine 1.21 H Glucose 163 H POC Glucose (mg/dL) 187 H Uric Acid Calcium 6.2 L* Phosphorus Magnesium Iron TIBC % Saturation Ferritin Total Bilirubin 1.8 H Lactate Dehydrogenase Troponin I Total Protein 5.5 L Albumin 2.9 L Urine Appearance Urine Protein Urine Blood Ur Leukocyte Esterase Urine RBC Urine WBC Urine WBC Clumps Amorphous Sediment Urine Bacteria Urine Mucus Stool Occult Blood Crossmatch 10/23/19 10/23/19 10/23/19 11:38 16:35 20:14 WBC RBC Hgb Hct MCV MCH RDW Plt Count Neutrophils # (Manual) Lymphocytes # (Manual) Monocytes # (Manual) Metamyelocytes # (Man) Myelocytes # (Manual) Nucleated RBCs Macrocytosis Retic Count Haptoglobin Sodium Potassium Chloride Carbon Dioxide BUN Creatinine Glucose POC Glucose (mg/dL) 166 H 148 H 214 H Uric Acid Calcium Phosphorus Magnesium Iron TIBC % Saturation Ferritin Total Bilirubin Lactate Dehydrogenase Troponin I Total Protein Albumin Urine Appearance Urine Protein Urine Blood Ur Leukocyte Esterase Urine RBC Urine WBC Urine WBC Clumps Amorphous Sediment Urine Bacteria Urine Mucus Stool Occult Blood Crossmatch 10/24/19 10/24/19 10/24/19 00:51 05:29 05:29 WBC 0.6 L* RBC 2.47 L Hgb 7.8 L Hct 23.3 L MCV MCH RDW 23.6 H Plt Count 11 L* D Neutrophils # (Manual) Lymphocytes # (Manual) Monocytes # (Manual) Metamyelocytes # (Man) Myelocytes # (Manual) Nucleated RBCs Macrocytosis Retic Count Haptoglobin Sodium Potassium 3.3 L 3.2 L Chloride Carbon Dioxide BUN 36 H Creatinine 1.06 H Glucose 181 H POC Glucose (mg/dL) Uric Acid Calcium 6.0 L* Phosphorus Magnesium 1.3 L Iron TIBC % Saturation Ferritin Total Bilirubin 1.8 H Lactate Dehydrogenase Troponin I Total Protein 5.4 L Albumin 2.8 L Urine Appearance Urine Protein Urine Blood Ur Leukocyte Esterase Urine RBC Urine WBC Urine WBC Clumps Amorphous Sediment Urine Bacteria Urine Mucus Stool Occult Blood Crossmatch 10/24/19 05:57 WBC RBC Hgb Hct MCV MCH RDW Plt Count Neutrophils # (Manual) Lymphocytes # (Manual) Monocytes # (Manual) Metamyelocytes # (Man) Myelocytes # (Manual) Nucleated RBCs Macrocytosis Retic Count Haptoglobin Sodium Potassium Chloride Carbon Dioxide BUN Creatinine Glucose POC Glucose (mg/dL) 197 H Uric Acid Calcium Phosphorus Magnesium Iron TIBC % Saturation Ferritin Total Bilirubin Lactate Dehydrogenase Troponin I Total Protein Albumin Urine Appearance Urine Protein Urine Blood Ur Leukocyte Esterase Urine RBC Urine WBC Urine WBC Clumps Amorphous Sediment Urine Bacteria Urine Mucus Stool Occult Blood Crossmatch
--- NOTE | 2019-10-26 11:22 | P.PN ---
Subjective Patient is seen in follow-up for acute kidney injury, now resolved. She has been voiding. Oral intake is fair. No vomiting or diarrhea. No chest pain or shortness of breath. Continues to moan only. Vital signs are stable. General: The patient appeared well nourished and normally developed. HEENT: Head exam is unremarkable. Neck is without jugular venous distension. LUNGS: Lungs are clear to auscultation and percussion. Breath sounds decreased. HEART: Rate and Rhythm are regular. First and second heart sounds normal. No murmurs, rubs or gallops. ABDOMEN: Abdominal exam reveals normal bowel sounds. Non-tender and non- distended. No evidence of peritonitis. EXTREMITITES: No clubbing, cyanosis, or edema. Objective - Vital Signs Vital signs: Vital Signs Temp 98.6 F 10/26/19 04:00 Pulse 90 10/26/19 04:00 Resp 20 10/26/19 04:00 BP 112/71 10/26/19 04:00 Pulse Ox 98 10/26/19 04:00 Intake & Output 10/25/19 10/26/19 10/26/19 18:59 06:59 18:59 Intake Total 386 0 Output Total 600 600 Balance -214 -600 0 Weight 70.5 kg Intake: Oral 180 0 Blood Product 206 Platelet Irr Pheresis 3 206 Acda Unit [id number] Output: Urine 600 600 Other: Voiding Method Diaper Incontinent # Voids 2 - Labs CBC & Chem 7: 10/26/19 06:06 10/26/19 06:06 Labs: Abnormal Lab Results - Last 24 Hours (Table) 10/25/19 10/25/19 10/25/19 Range/Units 16:31 16:52 20:41 WBC (3.8-10.6) k/uL RBC (3.80-5.40) m/uL Hgb (11.4-16.0) gm/dL Hct (34.0-46.0) % RDW (11.5-15.5) % Plt Count (150-450) k/uL Potassium 3.3 L (3.5-5.1) mmol/L BUN (7-17) mg/dL Glucose (74-99) mg/dL POC Glucose (mg/dL) 224 H 162 H (75-99) mg/dL Calcium (8.4-10.2) mg/dL Magnesium (1.6-2.3) mg/dL 10/25/19 10/26/19 10/26/19 Range/Units 22:00 06:06 06:06 WBC 0.4 L* (3.8-10.6) k/uL RBC 2.70 L (3.80-5.40) m/uL Hgb 8.6 L D (11.4-16.0) gm/dL Hct 25.8 L (34.0-46.0) % RDW 22.5 H (11.5-15.5) % Plt Count 6 L* (150-450) k/uL Potassium 3.2 L 3.4 L (3.5-5.1) mmol/L BUN 21 H (7-17) mg/dL Glucose 141 H (74-99) mg/dL POC Glucose (mg/dL) (75-99) mg/dL Calcium 6.7 L (8.4-10.2) mg/dL Magnesium 1.4 L (1.6-2.3) mg/dL 10/26/19 Range/Units 06:11 WBC (3.8-10.6) k/uL RBC (3.80-5.40) m/uL Hgb (11.4-16.0) gm/dL Hct (34.0-46.0) % RDW (11.5-15.5) % Plt Count (150-450) k/uL Potassium (3.5-5.1) mmol/L BUN (7-17) mg/dL Glucose (74-99) mg/dL POC Glucose (mg/dL) 155 H (75-99) mg/dL Calcium (8.4-10.2) mg/dL Magnesium (1.6-2.3) mg/dL Assessment and Plan Plan: Assessment: 1. Acute kidney injury secondary to ATN secondary to acute blood loss anemia and tumor lysis syndrome. Resolved. No significant hydronephrosis noted on kidney ultrasound. 2. Pancytopenia secondary to chemotherapy. Status post blood transfusion. 3. Metabolic acidosis secondary to acute kidney injury and IV fluids. Resolved. 4. AML. 5. Hyperuricemia secondary to tumor lysis syndrome status post rasburicase. Better. 6. Hypokalemia secondary to intracellular shifting from IV bicarb and poor oral intake. 7. Hypomagnesemia from poor oral intake. 8. Hypocalcemia secondary to acute kidney injury and tumor lysis. Corrected calcium 7.3. Maintained on Os-Arben D. better. Plan: Maintain normal saline at 75 mL an hour. Avoid nephrotoxins. Potassium and magnesium being replaced. Repeat electrolytes in the morning.
--- NOTE | 2019-10-26 11:38 | PN ---
PROGRESS NOTE DATE OF SERVICE: 10/26/2019 Patient is a 64-year-old female who is seen lying in bed, sleeping arouses easily. Patient has required some sedation as patient will yell out when no one is in the room. However, when the patient is approached, patient states that she is not in any pain and does not know why she is yelling and does stop at that time. Patient was planned to be transferred to [facility] where a neuro consult could be obtained. However, my understanding is preliminary results on the bone marrow show recurrence of leukemia. Subsequently, patient will not transfer, family will be contacted by Oncology and further plans will be made is to going forward with palliative care or hospice. Patient is afebrile, hemodynamically stable, in no acute distress. PHYSICAL EXAM: VITAL SIGNS: Temp is 98.6, heart rate is 90, respiratory rate is 18, blood pressure is 112/71, O2 saturation 98% on room air. HEENT. Head is normocephalic, atraumatic. Neck is supple. Trachea is midline. Lung sounds clear. No rales or wheezes. HEART: S1, S2 are heard. Not tachycardic. ABDOMEN: Soft. Bowel sounds are positive. EXTREMITIES: With no edema. NEUROLOGIC: Patient responds appropriately when aroused sleeping, upon entry into the room. LABS: White count 0.4, hemoglobin 8.6, hematocrit 25.8 with 6000 platelets. Sodium is 140, potassium is 3.4, chloride is 103, CO2 is 28, anion gap is 9, BUN is 21, creatinine 0.77, glucose is 141, calcium is 6.7, magnesium is 1.4. No new imaging to review. IMPRESSION: 1. Confusion possibly related to recurrence of leukemia. 2. Acute on chronic anemia. 3. History of AML, status post chemotherapy with pancytopenia. 4. Thrombocytopenia. 5. Acute kidney injury with hydronephrosis on the left and renal calculi. 6. Urinary tract infection. 7. Diabetes mellitus. PLAN: Continue current medications, which have been reviewed. Continue to replace electrolytes per protocol. Continue supportive care with blood and blood products per Hematology. Continue antibiotic antibiotics per Infectious Disease. Continue GI prophylaxis and plan is for the patient's family to meet with Oncology today to discuss results of the preliminary bone marrow and plan going forward with palliative care versus hospice. Will continue to follow, making further changes as necessary. MMODL / IJN: [id number] /
[2019-10-26 11:41] VITALS: BMI 26.6
[2019-10-26 11:54] LABS: Glucose,Whole Blood 253 mg/dL (75-99)
[2019-10-26] MEDS: SODIUM CHLORIDE 0.9% 1,000 ML IV SCH (12:45)
[2019-10-26 13:01] VITALS: BP 140/73; RESP 16; TEMP 99.9
[2019-10-26 16:13] VITALS: PULSE 90
--- NOTE | 2019-10-26 16:35 | P.PN ---
Subjective Progress Note Date: 10/25/19 The patient was very drowsy and difficult to arouse. When aroused she was complaining of generalized pain. He appeared to be confused and was having difficulty recognizing me. She was moving all extremities. No fever/chills Nausea/vomiting/obvious bleeding Objective - Vital Signs Vital signs: Vital Signs Temp 99.9 F H 10/26/19 12:00 Pulse 90 10/26/19 16:00 Resp 16 10/26/19 12:00 BP 140/73 10/26/19 12:00 Pulse Ox 98 10/26/19 12:00 Intake & Output 10/25/19 10/26/19 10/26/19 18:59 06:59 18:59 Intake Total 386 75 Output Total 600 600 Balance -214 -600 75 Weight 70.5 kg 70.5 kg Intake: Intake, IV Titration 75 Amount Sodium Chloride 0.9% 1, 75 000 ml @ 75 mls/hr IV . [id number] [facility] Rx#:[id number] Oral 180 0 Blood Product 206 Platelet Irr Pheresis 3 206 Acda Unit [id number] Output: Urine 600 600 Other: Voiding Method Diaper Diaper Incontinent Incontinent # Voids 2 - Constitutional General appearance: Present: mild distress - EENT Eyes: Present: EOMI ENT: Present: hearing grossly normal, normal oropharynx - Respiratory Respiratory: bilateral: CTA - Cardiovascular Rhythm: regular Heart sounds: normal: S1, S2 - Gastrointestinal General gastrointestinal: Present: normal bowel sounds, soft - Integumentary Integumentary: Present: normal - Neurologic Neurologic: Present: CNII-XII intact - Musculoskeletal Musculoskeletal: Present: generalized weakness, strength equal bilaterally - Psychiatric Psychiatric Comment(s): Confused at the time of my evaluation - Labs CBC & Chem 7: 10/26/19 06:06 10/26/19 06:06 Labs: Abnormal Lab Results - Last 24 Hours (Table) 10/25/19 10/25/19 10/25/19 Range/Units 16:31 16:52 20:41 WBC (3.8-10.6) k/uL RBC (3.80-5.40) m/uL Hgb (11.4-16.0) gm/dL Hct (34.0-46.0) % RDW (11.5-15.5) % Plt Count (150-450) k/uL Potassium 3.3 L (3.5-5.1) mmol/L BUN (7-17) mg/dL Glucose (74-99) mg/dL POC Glucose (mg/dL) 224 H 162 H (75-99) mg/dL Calcium (8.4-10.2) mg/dL Magnesium (1.6-2.3) mg/dL 10/25/19 10/26/19 10/26/19 Range/Units 22:00 06:06 06:06 WBC 0.4 L* (3.8-10.6) k/uL RBC 2.70 L (3.80-5.40) m/uL Hgb 8.6 L D (11.4-16.0) gm/dL Hct 25.8 L (34.0-46.0) % RDW 22.5 H (11.5-15.5) % Plt Count 6 L* (150-450) k/uL Potassium 3.2 L 3.4 L (3.5-5.1) mmol/L BUN 21 H (7-17) mg/dL Glucose 141 H (74-99) mg/dL POC Glucose (mg/dL) (75-99) mg/dL Calcium 6.7 L (8.4-10.2) mg/dL Magnesium 1.4 L (1.6-2.3) mg/dL 10/26/19 10/26/19 Range/Units 06:11 11:52 WBC (3.8-10.6) k/uL RBC (3.80-5.40) m/uL Hgb (11.4-16.0) gm/dL Hct (34.0-46.0) % RDW (11.5-15.5) % Plt Count (150-450) k/uL Potassium (3.5-5.1) mmol/L BUN (7-17) mg/dL Glucose (74-99) mg/dL POC Glucose (mg/dL) 155 H 253 H (75-99) mg/dL Calcium (8.4-10.2) mg/dL Magnesium (1.6-2.3) mg/dL Assessment and Plan (1) Pancytopenia due to antineoplastic chemotherapy Narrative/Plan: Pancytopenia persists to the same degree. At this time it is not felt that the pancytopenia is due to effect of her antineoplastic medication as she has been off that for several days. The concern from my standpoint is recurrence of her AML. Therefore the patient had the bone marrow on 10/23/19. Results are pending at this time. In the meantime continue supportive transfusions. She will receive platelets today for platelet count of 4. No active bleeding has been noted. Current Visit: Yes Status: Acute Priority: High Code(s): D61.810 - ANTINEOPLASTIC CHEMOTHERAPY INDUCED PANCYTOPENIA; T45.1X5A - ADVERSE EFFECT OF ANTINEOPLASTIC AND IMMUNOSUP DRUGS, INIT SNOMED Code(s): 044515936935499 (2) Acute renal failure Narrative/Plan: This continues to improve with near normalization of her renal function. Given the concern for relapse AML, its possible that the HPI we have occur due to tumor lysis. As noted previously the patient was treated for tumor lysis, as well as differentiation syndrome which was the other possibility. Nephrology following Current Visit: Yes Status: Acute Priority: High Code(s): N17.9 - ACUTE KIDNEY FAILURE, UNSPECIFIED SNOMED Code(s): 99534981 (3) Weakness generalized Current Visit: No Status: Acute Priority: High Code(s): R53.1 - WEAKNESS SNOMED Code(s): 22658187 (4) Change in mental status Narrative/Plan: The patient has been progressively more lethargic. She also appears to have at least intermittent confusion. He has had episodes of crying out and screaming for help with no specific reason given. She is also been complaining of somewhat generalized pain. The cause of this is not clear. Her acute kidney injury appears to have resolved. CT of the brain was negative. Given persistent pancytopenia, and concern for relapsed AML, a possibility is leptomeningeal involvement with leukemia. Establishing a diagnosis in this regard, would be risky since this would require an LP and the patient has persistently low platelet counts. 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 Therefore plan on treating supportively for now. If the patient's bone marrow comes back positive for relapsed AML, then we will discuss comfort care with the family. Current Visit: Yes Status: Acute Code(s): R41.82 - ALTERED MENTAL STATUS, UNSPECIFIED SNOMED Code(s): 283181488
[2019-10-26] MEDS: LACTATED RINGERS 1,000 ML IV SCH (17:03)
--- NOTE | 2019-10-26 18:20 | P.PN ---
Subjective Progress Note Date: 10/26/19 Principal diagnosis: Recurrent AML In follow-up staff is reported patient calling out, patient reports that she knows that she is calling out but not sure why. I asked patient if she was experiencing any pain she denied any, she denied any trouble breathing, she stated that she was comfortable. She is surrounded by her and multiple family members. Objective - Vital Signs Vital signs: Vital Signs Temp 99.9 F H 10/26/19 12:00 Pulse 90 10/26/19 16:00 Resp 16 10/26/19 12:00 BP 140/73 10/26/19 12:00 Pulse Ox 98 10/26/19 12:00 Intake & Output 10/25/19 10/26/19 10/26/19 18:59 06:59 18:59 Intake Total 386 75 Output Total 600 600 Balance -214 -600 75 Weight 70.5 kg 70.5 kg Intake: Intake, IV Titration 75 Amount Sodium Chloride 0.9% 1, 75 000 ml @ 75 mls/hr IV . [id number] [facility] Rx#:[id number] Oral 180 0 Blood Product 206 Platelet Irr Pheresis 3 206 Acda Unit [id number] Output: Urine 600 600 Other: Voiding Method Diaper Diaper Incontinent Incontinent # Voids 2 - Exam Well-developed, cachectic, frail female laying in bed, she does not open her eyes but, she answers questions appropriately when asked. Respirations are even and unlabored, chest expansion is symmetrical, oral mucosa is severely dry, S1, S2, soft abdomen - Labs CBC & Chem 7: 10/26/19 06:06 10/26/19 06:06 Labs: Abnormal Lab Results - Last 24 Hours (Table) 10/25/19 10/25/19 10/25/19 Range/Units 16:52 20:41 22:00 WBC (3.8-10.6) k/uL RBC (3.80-5.40) m/uL Hgb (11.4-16.0) gm/dL Hct (34.0-46.0) % RDW (11.5-15.5) % Plt Count (150-450) k/uL Potassium 3.3 L 3.2 L (3.5-5.1) mmol/L BUN (7-17) mg/dL Glucose (74-99) mg/dL POC Glucose (mg/dL) 162 H (75-99) mg/dL Calcium (8.4-10.2) mg/dL Magnesium (1.6-2.3) mg/dL 10/26/19 10/26/19 10/26/19 Range/Units 06:06 06:06 06:11 WBC 0.4 L* (3.8-10.6) k/uL RBC 2.70 L (3.80-5.40) m/uL Hgb 8.6 L D (11.4-16.0) gm/dL Hct 25.8 L (34.0-46.0) % RDW 22.5 H (11.5-15.5) % Plt Count 6 L* (150-450) k/uL Potassium 3.4 L (3.5-5.1) mmol/L BUN 21 H (7-17) mg/dL Glucose 141 H (74-99) mg/dL POC Glucose (mg/dL) 155 H (75-99) mg/dL Calcium 6.7 L (8.4-10.2) mg/dL Magnesium 1.4 L (1.6-2.3) mg/dL 10/26/19 Range/Units 11:52 WBC (3.8-10.6) k/uL RBC (3.80-5.40) m/uL Hgb (11.4-16.0) gm/dL Hct (34.0-46.0) % RDW (11.5-15.5) % Plt Count (150-450) k/uL Potassium (3.5-5.1) mmol/L BUN (7-17) mg/dL Glucose (74-99) mg/dL POC Glucose (mg/dL) 253 H (75-99) mg/dL Calcium (8.4-10.2) mg/dL Magnesium (1.6-2.3) mg/dL Assessment and Plan (1) Tumor lysis syndrome following antineoplastic drug therapy Status: Acute Priority: High Code(s): E88.3 - TUMOR LYSIS SYNDROME; T45.1X5A - ADVERSE EFFECT OF ANTINEOPLASTIC AND IMMUNOSUP DRUGS, INIT SNOMED Code(s): 298602532 (2) Pancytopenia due to antineoplastic chemotherapy Status: Acute Priority: High Code(s): D61.810 - ANTINEOPLASTIC CHEMOTHERAPY INDUCED PANCYTOPENIA; T45.1X5A - ADVERSE EFFECT OF ANTINEOPLASTIC AND IMMUNOSUP DRUGS, INIT SNOMED Code(s): 567333758800723 (3) Acute renal failure Status: Acute Priority: High Code(s): N17.9 - ACUTE KIDNEY FAILURE, UNSPECIFIED SNOMED Code(s): 01726026 (4) 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 Preliminary report regarding patient's recent bone marrow obtained over phone. Reported 80% blasts in the marrow. I spoke with patient's , asked him to gather family members. I had a discussion with them, as did Dr. Carson. Unfortunately, patient's condition is terminal. She has rapid recurrence of AML despite 2 lines of therapy in rapid succession. Patient's performance status is so poor that any additional treatment would likely cause more harm then provide her with any disease relief or QOL. Patient's origin of confusion and calling out (because at some moments she is absolutely coherent and lucid) in not absolutely certain, cannot completely rule out a PUBLICATION DISTRIBUTOR involvement with AML but, pursuing that diagnosis is futile and actually is a greater risk to patient due to potential complications from procedure. All of the 's questions were answered to his satisfaction. CODE STATUS has been updated to no code, allow [facility] has been consulted. Do not anticipate life expectancy greater then several days with cessation of life sustaining treatments. It is been agreed upon that the focus of care is for comfort and treatment of symptoms. Doctor attests: I performed a history and physical examination of this patient, developed impression and plan of care, discussed with dictator. I agree with dictators note, documented as a scribe. Time with Patient: Greater than 30 (>60 min counseling and coordinating care, hospice/end of life discussion)
--- NOTE | 2019-10-26 22:18 | EEG ---
ELECTROENCEPHALOGRAM REPORT PROCEDURE DATE: 10/26/2019 ELECTROENCEPHALOGRAM (EEG) REPORT: TECHNIQUE: A routine 18 channel EEG was performed with video using the 10/20 international electrode placement system. HISTORY: Diabetes, hypertension, hyperlipidemia. Patient presented with generalized weakness and encephalopathy. CURRENT MEDICATIONS: Unknown. STUDY DURATION: 21 minute. FINDINGS: Please note that this was essentially an uninterpretable study. Artifact was seen throughout the entire recording. Occasionally background frequencies were seen in the unsustained 6-7 hertz range. IMPRESSION: Essentially uninterpretable study. Background frequencies at times were slow. If clinical concern remains for a seizure disorder, would suggest a repeat study. MMODL / IJN: [id number] / [facility]
--- NOTE | 2019-10-27 14:09 | DS ---
DISCHARGE SUMMARY DATE OF ADMISSION: 10/17/2019. DATE OF DISCHARGE: 10/26/2019 Mey Hernandez is a 64-year-old female who presented to the ED at [facility] on 10/17/2019. At that time she had Hemoccult-positive stools and was found to have anemia with a hemoglobin of 6.3. She has a history of AML and had been on chemotherapy. Her last chemotherapy was in June of 2019. PAST MEDICAL HISTORY: Positive for cancer, diabetes mellitus, hyperlipidemia, hypertension, AML diagnosed in March of 2019, GI bleed, anemia, PICC line, bone marrow biopsy x2. FAMILY HISTORY: Positive for cancer in her sister and mother. Patient is a nonsmoker. Does not drink alcohol excessively. PHYSICAL EXAMINATION: Her blood pressure had been 94/62, respiratory rate of 18, pulse rate of 106, temperature 97.3. HEENT showed pallor. Chest was clear. Cardiovascular system reveals an S1 and S2. Abdomen is soft. There was no edema. IMPRESSION: 1. Anemia. 2. Gastrointestinal bleed. 3. Possible recurrence of AML. 4. Acute renal failure. 5. Urinary tract infection. 6. Diabetes mellitus. Patient was given IV fluids, packed red cells, platelets during her hospital stay. She was seen by Oncology and Nephrology. She subsequently was found to have hydronephrosis and was thought to have a UTI secondary to a possible kidney stone. She was seen by Dr. Pardo and underwent a double-J catheter placement under cystoscopy in the left ureter. Patient failed to improve, had undergone a bone marrow biopsy which showed evidence of recurrence of her acute myelogenous leukemia. Patient during the hospital stay had pancytopenia, anemia and severe thrombocytopenia. Patient subsequently was transferred to hospice after discussions have been held with the family and the medical surgical tech, oncologist. DISCHARGE DIAGNOSES: 1. Anemia. 2. Thrombocytopenia. 3. Gastrointestinal bleed. 4. Urinary tract infection. 5. Acute pyelonephritis. 6. Sepsis. 7. Metabolic encephalopathy. 8. Recurrence of acute myelogenous leukemia. 9. Medical debility. CONDITION: Guarded. ACTIVITIES: As tolerated. DISCHARGE MEDICATIONS ARE: Per the hospice service which will be taking over her care. MMODL / IJN: [id number] /
--- NOTE | 2019-10-29 13:51 | CDI ---
Documentation Clarification Form Date: 10/29/19 From: Chica Reilly Phone: If you have a question about this query, please contact Mary Velasco, Clinic Receptionist at [phone] between 8am and 5pm. Admit Date: 10/17/19 Discharge Date: 10/26/19 Patient Name: Mey Hernandez Visit Number: [id number] ATTENTION: The Clinical Documentation Specialists (CDI) and [facility] Coding Staff appreciate your assistance in clarifying documentation. Please respond to the clarification below the line at the bottom and electronically sign. The CDI & [facility] Coding staff will review the response and follow-up if needed. Please note: Queries are made part of the Legal Health Record. If you have any questions, please contact the author of this message via ITS. Dear Dr. Manjeet Baires, The diagnosis sepsis was documented in the 10/24 PN & PX note by Dr Pardo & JEANMARIE, but is not noted in subsequent documentation. History/Risk Factors: AML, acute on chronic blood loss anemia, tumor lysis, ATN, met encephalopathy Clinical Indicators: Bilirubin-2.1, lactic acid-1.1, WBC-8.3, Neutrophils-24 Treatment: IV Rocephin Please clarify if sepis was the reason for admission: Yes the reason for admission No, present but not the reason admission Ruled out Other, please specify Clinically unable to determine MTDD
--- NOTE | 2019-10-31 09:23 | CDI ---
Documentation Clarification Form Date: 10/29/19 From: Chica Reilly Phone: If you have a question about this query, please contact Mary Velasco, Piping Engineer at [phone] between 8am and 5pm. Admit Date: 10/17/19 Discharge Date: 10/26/19 Patient Name: Mey Hernandez Visit Number: [id number] ATTENTION: The Clinical Documentation Specialists (CDI) and [facility] Coding Staff appreciate your assistance in clarifying documentation. Please respond to the clarification below the line at the bottom and electronically sign. The CDI & [facility] Coding staff will review the response and follow-up if needed. Please note: Queries are made part of the Legal Health Record. If you have any questions, please contact the author of this message via ITS. Dear Dr. Manjeet Baires, The diagnosis sepsis was documented in the 10/24 PN & PX note by Dr Pardo & JEANMARIE, but is not noted in subsequent documentation. History/Risk Factors: AML, acute on chronic blood loss anemia, tumor lysis, ATN, met encephalopathy Clinical Indicators: Bilirubin-2.1, lactic acid-1.1, WBC-8.3, Neutrophils-24 Treatment: IV Rocephin Please clarify if sepis was the reason for admission: Yes the reason for admission No, present but not the reason admission Ruled out Other, please specify Clinically unable to determine MTDD
--- NOTE | 2019-11-05 06:54 | CDI ---
Documentation Clarification Form Date: 10/29/19 From: Chica Reilly Phone: If you have a question about this query, please contact Mary Velasco, Taxicab Driver at [phone] between 8am and 5pm. Admit Date: 10/17/19 Discharge Date: 10/26/19 Patient Name: Mey Hernandez Visit Number: [id number] ATTENTION: The Clinical Documentation Specialists (CDI) and [facility] Coding Staff appreciate your assistance in clarifying documentation. Please respond to the clarification below the line at the bottom and electronically sign. The CDI & [facility] Coding staff will review the response and follow-up if needed. Please note: Queries are made part of the Legal Health Record. If you have any questions, please contact the author of this message via ITS. Dear Dr. Manjeet Baires, The diagnosis sepsis was documented in the 10/24 PN & PX note by Dr Pardo & JEANMARIE, but is not noted in subsequent documentation. History/Risk Factors: AML, acute on chronic blood loss anemia, tumor lysis, ATN, met encephalopathy Clinical Indicators: Bilirubin-2.1, lactic acid-1.1, WBC-8.3, Neutrophils-24 Treatment: IV Rocephin Please clarify if sepsis was present on admission: Yes, present on admission No, not present on admission Ruled out Other, please specify Clinically unable to determine MTDD
== END 2019-10-26 17:06 | disposition hospice, inpatient (51) | DRG 808 ==
LOC: EC 10:42 → 3SCARD 12:45
PROVIDERS: ADMIT Internal Medicine; ATTEND Internal Medicine
PROC: 30233N1 Transfusion of Nonautologous Red Blood Cells into Peripheral Vein, Percutaneous Approach (ICD-10-PCS; 2019-10-17)
PROC: 30233R1 Transfusion of Nonautologous Platelets into Peripheral Vein, Percutaneous Approach (ICD-10-PCS; 2019-10-18)
PROC: 07DR3ZX Extraction of Iliac Bone Marrow, Percutaneous Approach, Diagnostic (ICD-10-PCS; principal; 2019-10-23 07:30)
PROC: 0TCB8ZZ Extirpation of Matter from Bladder, Via Natural or Artificial Opening Endoscopic (ICD-10-PCS; 2019-10-24 11:00)
PROC: BT1F1ZZ Fluoroscopy of Left Kidney, Ureter and Bladder using Low Osmolar Contrast (ICD-10-PCS; 2019-10-24 11:00)
DX: D61.810 Antineoplastic chemotherapy induced pancytopenia (principal); N17.0 Acute kidney failure with tubular necrosis; E88.3 Tumor lysis syndrome; G93.41 Metabolic encephalopathy; A41.9 Sepsis, unspecified organism; C92.50 Acute myelomonocytic leukemia, not having achieved remission; R64 Cachexia; E87.2 Acidosis; R17 Unspecified jaundice; N13.6 Pyonephrosis; D62 Acute posthemorrhagic anemia; E83.51 Hypocalcemia; D69.59 Other secondary thrombocytopenia; E78.5 Hyperlipidemia, unspecified; Z66 Do not resuscitate; Z51.5 Encounter for palliative care; E87.6 Hypokalemia; E83.42 Hypomagnesemia; E86.0 Dehydration; E86.1 Hypovolemia; D50.0 Iron deficiency anemia secondary to blood loss (chronic); E87.5 Hyperkalemia; E11.9 Type 2 diabetes mellitus without complications; R19.5 Other fecal abnormalities; I10 Essential (primary) hypertension; E79.0 Hyperuricemia without signs of inflammatory arthritis and tophaceous disease; R32 Unspecified urinary incontinence; F41.9 Anxiety disorder, unspecified; T45.1X5A Adverse effect of antineoplastic and immunosuppressive drugs, initial encounter; R79.89 Other specified abnormal findings of blood chemistry; Z79.818 Long term (current) use of other agents affecting estrogen receptors and estrogen levels; Z68.26 Body mass index [BMI] 26.0-26.9, adult; Z79.899 Other long term (current) drug therapy; Z91.040 Latex allergy status; Z98.890 Other specified postprocedural states; Z80.3 Family history of malignant neoplasm of breast
CPT/HCPCS: 36415; 38222; 70450; 71046; 74176; 74420; 76770; 80048; 80053; 81001; 82140; 82272; 82365; 82607; 82728; 82746; 83010; 83540; 83550; 83605; 83615; 83735; 83970; 84100; 84132; 84484; 84550; 85025; 85045; 85610; 85730; 86850; 86900; 86901; 86920; 87086; 93005; 93306; 95816; 96360; 96361; 99285

== ENCOUNTER 2019-10-26 16:57 | Inpatient (IN) | payer MEDICAID ==
[2019-10-26] MEDS ORDERED: ONDANSETRON 4 MG/2 ML VIAL IVP PRN (17:20)
[2019-10-26] MEDS ORDERED: ACETAMINOPHEN SUPPOSITORY 650 MG SUPP RECTAL PRN (17:20)
[2019-10-26] MEDS: LORazepam 2 MG/ML INJ IV PRN ×2 (17:42→22:24)
[2019-10-26] MEDS ORDERED: SCOPOLAMINE 1.5MG/72HR PATCH TRANSDERM SCH (18:00)
[2019-10-26] MEDS: MORPHINE SULFATE 2 MG/ML SYRINGE IV PRN (20:37)
[2019-10-27] MEDS: MORPHINE SULFATE 2 MG/ML SYRINGE IV PRN ×4 (01:19→10:23)
[2019-10-27] MEDS: LORazepam 2 MG/ML INJ IV PRN (07:54)
[2019-10-27] MEDS ORDERED: MORPHINE SULFATE (100 MG/2 ML) 100 MG in SODIUM CHLORIDE 0.9% 100 ML IV SCH (10:30)
[2019-10-27 13:42] VITALS: RESP 28
--- NOTE | 2019-10-27 15:24 | HP ---
HISTORY AND PHYSICAL She is admitted to hospice, Mey Hernandez is a 64-year-old female with a known history of AML diagnosed in March of 2019. She had chemotherapy, which was last done in June of 2019, came to the ER as she was anemic with a hemoglobin of 6.3 and Hemoccult-positive stools. She subsequently was worked up in the hospital and was found to have recurrence of her AML. Discussion was held with the family and Hematology, Oncology and subsequently she was placed on hospice. She is unresponsive at this time and fairly comfortable. PAST MEDICAL HISTORY: Positive for AML, diabetes mellitus, hyperlipidemia, hypertension, history of cognitive dysfunction. FAMILY HISTORY: Positive for cancer in her mother. Sister had a history of breast cancer as well. SOCIAL HISTORY: Noncontributory. MEDICATIONS: At this time include acetaminophen, Ativan, morphine and scopolamine. PHYSICAL EXAMINATION: Respiratory rate was 12, pulse rate of 76. She was afebrile. She is does not follow any commands and is fairly comfortable. Chest reveals diminished breath sounds. Cardiovascular system reveals an S1, S2. Abdomen is soft. There is edema. IMPRESSION: 1. Recurrence of acute myeloblastic leukemia for which the patient is on hospice. 2. Thrombocytopenia, anemia. 3. Metabolic encephalopathy. Continue comfort oriented care. Prognosis is guarded. I did supervisor counseling and guidance the patient's family regarding the condition today. MMODL / IJN: [id number] /
--- NOTE | 2019-10-28 19:02 | DS ---
DISCHARGE SUMMARY SUMMARY: Mey Hernandez is a 64-year-old female with a history of acute myelogenous leukemia, who was admitted to the hospice service as she had recurrence of her acute myeloid leukemia and had not responded to treatment. PAST MEDICAL HISTORY: Positive for AML, diabetes mellitus, hyperlipidemia, and cognitive dysfunction. FAMILY HISTORY: Positive for cancer in her mother. SOCIAL HISTORY: Was noncontributory. The patient was on hospice, was kept comfortable with morphine and scopolamine. The patient was found to have no vital signs and was . DIAGNOSES: 1. Acute myelogenous leukemia. 2. Pancytopenia. MMODL / IJN: [id number] /
== END 2019-10-27 18:53 | disposition expired | DRG 951 ==
LOC: 3SCARD 17:08 → UNDODISIN 10-27 17:15
PROVIDERS: ADMIT Internal Medicine; ATTEND Family Medicine
DX: Z51.5 Encounter for palliative care (principal); G93.41 Metabolic encephalopathy; C92.00 Acute myeloblastic leukemia, not having achieved remission; D69.6 Thrombocytopenia, unspecified; E11.9 Type 2 diabetes mellitus without complications; E78.5 Hyperlipidemia, unspecified; I10 Essential (primary) hypertension; Z80.3 Family history of malignant neoplasm of breast; Z92.21 Personal history of antineoplastic chemotherapy